=== PATIENT | male | born 1955 | race Caucasian/White ===

== ENCOUNTER → 2017-05-05 | Outpatient (CLI) | payer OTHER ==
[2017-05-05 11:58] LABS: Blood Urea Nitrogen 24 mg/dL (9-20); Non-African American GFR(MDRD) >60 (>60 ml/min/1.73 sqM)
--- NOTE | 2017-05-05 14:01 | CT ---
EXAMINATION TYPE: CT abdomen pelvis w con DATE OF EXAM: 05/05/2017 COMPARISON: NONE HISTORY: Umbilical hernia CT DLP: 4652 mGycm Automated exposure control for dose reduction was used. TECHNIQUE: Helical acquisition of images from the lung bases through the pelvis have been completed. CONTRAST: Performed with Oral Contrast and with IV Contrast, patient injected with 100 ml mL of Visipaque 320. FINDINGS: Umbilical hernia is present which contains fat and extends the skin surface, and measures a pproximately 10 x 12 x 7.5 cm and shows a bilobed configuration. There are coronary calcifications. LUNG BASES: No significant abnormality is appreciated. AORTA: No significant abnormality is appreciated. LIVER/GB: No significant abnormality is appreciated. PANCREAS: No significant abnormality is seen. SPLEEN: No significant abnormality is seen. ADRENALS: No significant abnormality is seen. KIDNEYS: No significant abnormality is seen. REPRODUCTIVE ORGANS: No significant abnormality is seen BOWEL: No significant abnormality is seen. FREE AIR: No Free Air visible. ASCITES: None visible. PELVIC ADENOPATHY: None visualized. RETROPERITONEAL ADENOPATHY: No Retroperitoneal Adenopathy visible. URINARY BLADDER: No significant abnormality is seen. OSSEOUS STRUCTURES: Bilateral spondylolysis present at L5, grade 1 spinal listhesis is present L5 and S1. There is associated loss of disc height, vacuum phenomenon. IMPRESSION: LARGE UMBILICAL HERNIA, THE MOUTH OF THE HERNIA MEASURES 3 CM IN DIAMETER. SPONDYLOLYSIS AND SPONDYLO LISTHESIS.
== END | disposition home or self-care (01) ==
LOC: RADCTMAIN 10:57
PROVIDERS: ATTEND Surgery
DX: K42.9 Umbilical hernia without obstruction or gangrene (principal)
CPT/HCPCS: 82565; 84520; 74177; 36415; Q9967

== ENCOUNTER 2022-12-12 19:00 | Inpatient (IN) | payer OTHER ==
--- NOTE | 2022-12-12 20:03 | ED ---
Weakness HPI - General Chief complaint: Weakness Stated complaint: weakness Time Seen by Provider: 12/12/22 19:10 Source: patient, EMS Mode of arrival: ambulatory Limitations: no limitations - History of Present Illness Initial comments: This patient is 67-year-old man who is here to have evaluation of generalized weakness and fatigue. The patient states over the past few days she notes that he is getting more and more fatigued area reach the point that today when he had to go out he was not able to walk a distance to his car. He had to go back in and sit down. The patient states that it is not focal weakness. He just feels drained. He has not noted chest pain or dyspnea. No noted fever or chills. He does indicate that he has had some swelling of the right leg that has been increasing and there is increasing drainage from leg ulcer that he has. No cough or dyspnea. No change in urination or bowel movements. MD Complaint: generalized weakness, lack of energy, difficulty walking Onset/Timin -: days(s) Location: generalized Consistency: constant Improves with: rest Worsens with: exertion - Related Data Home Medications Medication Instructions Recorded Confirmed Apixaban [Eliquis] 5 mg PO BID 04/11/17 12/12/22 Cholecalciferol [Vitamin D3 (25 25 mcg PO HS 12/12/22 12/12/22 Mcg = 1000 Iu)] Exenatide Microspheres [Bydureon 2 mg SQ NEVAREZ 12/12/22 12/12/22 Bcise Auto-Injector] FLUoxetine HCL [PROzac] 20 mg PO DAILY 12/12/22 12/12/22 Ferrous Sulfate [Iron (65 MG 325 mg PO HS 12/12/22 12/12/22 Elemental)] Insulin Glargine,Hum.rec.anlog 30 units SQ HS 12/12/22 12/12/22 [Lantus Solostar Pen] Insulin Lispro [humaLOG Kwikpen] See Protocol SQ TID-W/MEALS 12/12/22 12/12/22 Nystatin 100,000Unit/gm Cream 1 applic TOPICAL BID 12/12/22 12/12/22 [Mycostatin Cream] Testosterone [Androgel 1.62% Gel 2 packet TOPICAL DAILY 12/12/22 12/12/22 Packet] carvediloL [Coreg] 25 mg PO BID 12/12/22 12/12/22 Previous Rx's Medication Instructions Recorded Acetaminophen Tab [Tylenol] 500 mg PO Q6HR PRN tab 12/17/22 Amoxic-Pot Clav 875-125Mg 1 tab PO BID 10 Days #20 tab 12/17/22 [Augmentin 875-125] Atorvastatin [Lipitor] 10 mg PO DAILY tab 12/17/22 Losartan [Cozaar] 25 mg PO DAILY #0 12/17/22 Tamsulosin [Flomax] 0.4 mg PO PC-SUPPER cap 12/17/22 Allergies Allergy/AdvReac Type Severity Reaction Status Date / Time lisinopril [From Prinivil] AdvReac Cough Verified 12/12/22 20:43 Review of Systems ROS Statement: Those systems with pertinent positive or pertinent negative responses have been documented in the HPI. ROS Other: All systems not noted in ROS Statement are negative. Constitutional: Reports: weakness. Denies: fever, chills Eyes: Denies: vision change Respiratory: Denies: cough, dyspnea Cardiovascular: Denies: chest pain, palpitations, orthopnea, edema, syncope Gastrointestinal: Denies: abdominal pain, vomiting, diarrhea, melena, hematochezia Genitourinary: Denies: dysuria, hematuria Musculoskeletal: Denies: back pain Skin: Denies: rash Neurological: Denies: headache, weakness, numbness Past Medical History Past Medical History: Atrial Fibrillation, Cancer, Diabetes Mellitus, Hyperlipidemia, Hypertension, Sleep Apnea/CPAP/BIPAP Additional Past Medical History / Comment(s): Basal cell carcinoma, Heart murmur History of Any Multi-Drug Resistant Organisms: None Reported Past Surgical History: No Surgical Hx Reported Additional Past Surgical History / Comment(s): Cataract surgery right eye Past Anesthesia/Blood Transfusion Reactions: No Reported Reaction Past Psychological History: Depression Smoking Status: Never smoker Past Alcohol Use History: None Reported Past Drug Use History: None Reported - Past Family History Mother Family Medical History: Diabetes Mellitus General Exam Limitations: no limitations General appearance: alert, in no apparent distress Head exam: Present: atraumatic, normocephalic Eye exam: Present: normal appearance. Absent: scleral icterus, conjunctival injection ENT exam: Present: mucous membranes dry Neck exam: Present: normal inspection Respiratory exam: Present: normal lung sounds bilaterally. Absent: respiratory distress, wheezes, rales, rhonchi, stridor, accessory muscle use Cardiovascular Exam: Present: regular rate, normal rhythm, normal heart sounds. Absent: systolic murmur, diastolic murmur, rubs, gallop GI/Abdominal exam: Present: soft. Absent: distended, tenderness, guarding, rebound, rigid, mass, pulsatile mass Extremities exam: Present: normal inspection, normal capillary refill, pedal edema (There is edema of the right leg. Patient has venous stasis ulcer with drainage. There is erythema and warmth.). Absent: calf tenderness Back exam: Present: normal inspection. Absent: CVA tenderness (R), CVA tenderness (L) Course Vital Signs 12/12/22 12/12/22 12/12/22 19:11 20:49 21:40 Temperature 99.1 F Pulse Rate 60 60 63 Respiratory 16 18 20 Rate Blood Pressure 97/57 93/75 98/53 O2 Sat by Pulse 99 95 93 L Oximetry 12/13/22 12/13/22 12/13/22 01:10 04:45 06:22 Temperature Pulse Rate 86 70 73 Respiratory 17 15 21 Rate Blood Pressure 108/95 108/95 132/61 O2 Sat by Pulse 96 95 94 L Oximetry Medical Decision Making - Medical Decision Making This patient is a 67-year-old man presenting with worsening of generalized weakness and fatigue. The exam does find some lower extremity cellulitis, and the patient started on antibiotics. The workup does reveal the patient has acute kidney injury, is given some mild hydration given the equivocal chest x- ray, will have repeat labs and nephrology consultation. The patient did have a chest x-ray which I interpreted as showing some possible vascular congestion. Was pt. sent in by a medical professional or institution (, PA, [employer], urgent care, hospital, or [facility]...) When possible be specific @ -[No] Did you speak to anyone other than the patient for history (EMS, parent, family, police, friend...)? What history was obtained from this source @ -[No] Did you review nursing and triage notes (agree or disagree)? Why? @ -[I reviewed and agree with nursing and triage notes] Were old charts reviewed (outside hosp., previous admission, EMS record, old EKG, old radiological studies, urgent care reports/EKG's, [facility] records)? Report findings @ -[old charts were reviewed] Differential Diagnosis (chest pain, altered mental status, abdominal pain women, abdominal pain men, vaginal bleeding, weakness, fever, dyspnea, syncope, headache, dizziness, GI bleed, back pain, seizure, CVA, palpatations, mental health, musculoskeletal)? @ -[Differential Weakness: Hypoglycemia, shock, sepsis, hyponatremia, anemia, infection, AR, ETOH, adverse medicine reaction, overdose, stroke, this is not meant to be an all-inclusive list. EKG interpreted by me (3pts min.). @ -[As above] X-rays interpreted by me (1pt min.). @ -[Chest x-ray as above CT interpreted by me (1pt min.). @ -[None done] U/S interpreted by me (1pt. min.). @ -[None done] What testing was considered but not performed or refused? (CT, X-rays, U/S, labs)? Why? @ -[None] What meds were considered but not given or refused? Why? @ -[None] Did you discuss the management of the patient with other professionals (professionals i.e. , PA, [employer]ER, lab, RT, psych nurse, director social welfare, sound person, teacher, operations officer trust department, piano case and bench assembler)? Give summary @ -[Case is discussed with admitting physician Was smoking cessation discussed for >3mins.? @ -[No] Was critical care preformed (if so, how long)? @ -[No] Were there social determinants of health that impacted care today? How? (Homelessness, low income, unemployed, alcoholism, drug addiction, transportation, low edu. Level, literacy, decrease access to med. care, group home, rehab)? @ -[No] Was there de-escalation of care discussed even if they declined (Discuss DNR or withdrawal of care, Hospice)? DNR status @ -[No] What co-morbidities impacted this encounter? (DM, HTN, Smoking, COPD, CAD, Cancer, CVA, ARF, Chemo, Hep., AIDS, mental health diagnosis, sleep apnea, mor bid obesity)? @ -[None] Was patient admitted / discharged? Hospital course, mention meds given and route, prescriptions, significant lab abnormalities, going to OR and other pertinent info. @ -[Patient is admitted for IV antibiotic therapy, nephrology consultation for acute kidney injury Undiagnosed new problem with uncertain prognosis? @ -[No] Drug Therapy requiring intensive monitoring for toxicity (Heparin, Nitro, Insulin, Cardizem)? @ -[No] Were any procedures done? @ -[No] Diagnosis/symptom? @ -[1. Lower extremity cellulitis 2. Acute kidney injury 3. Generalized weakness Acute, or Chronic, or Acute on Chronic? @ -[Acute Uncomplicated (without systemic symptoms) or Complicated (systemic symptoms)? @ -[Complicated Side effects of treatment? @ -[No] Exacerbation, Progression, or Severe Exacerbation? @ -[No] Poses a threat to life or bodily function? How? (Chest pain, USA, AR, pneumonia, PE, COPD, DKA, ARF, appy, cholecystitis, CVA, Diverticulitis, Homicidal, Suicidal, threat to staff... and all critical care pts) @ -[Yes untreated cellulitis may progress to sepsis and . Unaddressed acute kidney injury may progress to chronic renal failure or to . - Lab Data Result diagrams: 12/15/22 06:44 12/17/22 10:14 Lab Results 12/12/22 12/12/22 12/12/22 Range/Units 09:52 19:30 19:30 WBC 9.8 (3.8-10.6) k/uL RBC 4.25 L (4.30-5.90) m/uL Hgb 13.1 (13.0-17.5) gm/dL Hct 39.8 (39.0-53.0) % MCV 93.7 (80.0-100.0) fL MCH 30.8 (25.0-35.0) pg MCHC 32.8 (31.0-37.0) g/dL RDW 13.8 (11.5-15.5) % Plt Count 219 (150-450) k/uL MPV 7.1 Neutrophils % 96 % Lymphocytes % 1 % Monocytes % 2 % Eosinophils % 0 % Basophils % 0 % Neutrophils # 9.4 H (1.3-7.7) k/uL Lymphocytes # 0.1 L (1.0-4.8) k/uL Monocytes # 0.2 (0-1.0) k/uL Eosinophils # 0.0 (0-0.7) k/uL Basophils # 0.0 (0-0.2) k/uL PT 11.2 (9.0-12.0) sec INR 1.1 (<1.2) APTT 25.3 (22.0-30.0) sec Sodium (137-145) mmol/L Potassium (3.5-5.1) mmol/L Chloride (98-107) mmol/L Carbon Dioxide (22-30) mmol/L Anion Gap mmol/L BUN (9-20) mg/dL Creatinine (0.66-1.25) mg/dL Est GFR (CKD-EPI)AfAm (>60 ml/min/1.73 sqM) Est GFR (CKD-EPI)NonAf (>60 ml/min/1.73 sqM) Glucose (74-99) mg/dL Plasma Lactic Acid Tho (0.7-2.0) mmol/L Calcium (8.4-10.2) mg/dL Total Bilirubin (0.2-1.3) mg/dL AST (17-59) U/L ALT (4-49) U/L Alkaline Phosphatase (38-126) U/L Troponin I (0.000-0.034) ng/mL NT-Pro-B Natriuret Pep pg/mL Total Protein (6.3-8.2) g/dL Albumin (3.5-5.0) g/dL Urine Color Yellow Urine Appearance Clear (Clear) Urine pH 5.0 (5.0-8.0) Ur Specific [place] 1.016 (1.001-1.035) Urine Protein Negative (Negative) Urine Glucose (UA) Negative (Negative) Urine Ketones Trace H (Negative) Urine Blood Negative (Negative) Urine Nitrite Negative (Negative) Urine Bilirubin Negative (Negative) Urine Urobilinogen <2.0 (<2.0) mg/dL Ur Leukocyte Esterase Negative (Negative) 12/12/22 12/12/22 12/12/22 Range/Units 19:30 19:30 19:30 WBC (3.8-10.6) k/uL RBC (4.30-5.90) m/uL Hgb (13.0-17.5) gm/dL Hct (39.0-53.0) % MCV (80.0-100.0) fL MCH (25.0-35.0) pg MCHC (31.0-37.0) g/dL RDW (11.5-15.5) % Plt Count (150-450) k/uL MPV Neutrophils % % Lymphocytes % % Monocytes % % Eosinophils % % Basophils % % Neutrophils # (1.3-7.7) k/uL Lymphocytes # (1.0-4.8) k/uL Monocytes # (0-1.0) k/uL Eosinophils # (0-0.7) k/uL Basophils # (0-0.2) k/uL PT (9.0-12.0) sec INR (<1.2) APTT (22.0-30.0) sec Sodium 134 L (137-145) mmol/L Potassium 4.9 (3.5-5.1) mmol/L Chloride 98 (98-107) mmol/L Carbon Dioxide 24 (22-30) mmol/L Anion Gap 12 mmol/L BUN 88 H (9-20) mg/dL Creatinine 3.48 H (0.66-1.25) mg/dL Est GFR (CKD-EPI)AfAm 20 (>60 ml/min/1.73 sqM) Est GFR (CKD-EPI)NonAf 17 (>60 ml/min/1.73 sqM) Glucose 121 H (74-99) mg/dL Plasma Lactic Acid Tho 1.4 (0.7-2.0) mmol/L Calcium 7.8 L (8.4-10.2) mg/dL Total Bilirubin 0.9 (0.2-1.3) mg/dL AST 46 (17-59) U/L ALT 37 (4-49) U/L Alkaline Phosphatase 102 (38-126) U/L Troponin I 0.032 (0.000-0.034) ng/mL NT-Pro-B Natriuret Pep pg/mL Total Protein 6.1 L (6.3-8.2) g/dL Albumin 3.4 L (3.5-5.0) g/dL Urine Color Urine Appearance (Clear) Urine pH (5.0-8.0) Ur Specific [place] (1.001-1.035) Urine Protein (Negative) Urine Glucose (UA) (Negative) Urine Ketones (Negative) Urine Blood (Negative) Urine Nitrite (Negative) Urine Bilirubin (Negative) Urine Urobilinogen (<2.0) mg/dL Ur Leukocyte Esterase (Negative) 12/12/22 12/12/22 Range/Units 19:30 22:58 WBC (3.8-10.6) k/uL RBC (4.30-5.90) m/uL Hgb (13.0-17.5) gm/dL Hct (39.0-53.0) % MCV (80.0-100.0) fL MCH (25.0-35.0) pg MCHC (31.0-37.0) g/dL RDW (11.5-15.5) % Plt Count (150-450) k/uL MPV Neutrophils % % Lymphocytes % % Monocytes % % Eosinophils % % Basophils % % Neutrophils # (1.3-7.7) k/uL Lymphocytes # (1.0-4.8) k/uL Monocytes # (0-1.0) k/uL Eosinophils # (0-0.7) k/uL Basophils # (0-0.2) k/uL PT (9.0-12.0) sec INR (<1.2) APTT (22.0-30.0) sec Sodium (137-145) mmol/L Potassium (3.5-5.1) mmol/L Chloride (98-107) mmol/L Carbon Dioxide (22-30) mmol/L Anion Gap mmol/L BUN (9-20) mg/dL Creatinine (0.66-1.25) mg/dL Est GFR (CKD-EPI)AfAm (>60 ml/min/1.73 sqM) Est GFR (CKD-EPI)NonAf (>60 ml/min/1.73 sqM) Glucose (74-99) mg/dL Plasma Lactic Acid Tho (0.7-2.0) mmol/L Calcium (8.4-10.2) mg/dL Total Bilirubin (0.2-1.3) mg/dL AST (17-59) U/L ALT (4-49) U/L Alkaline Phosphatase (38-126) U/L Troponin I 0.029 (0.000-0.034) ng/mL NT-Pro-B Natriuret Pep 1730 pg/mL Total Protein (6.3-8.2) g/dL Albumin (3.5-5.0) g/dL Urine Color Urine Appearance (Clear) Urine pH (5.0-8.0) Ur Specific [place] (1.001-1.035) Urine Protein (Negative) Urine Glucose (UA) (Negative) Urine Ketones (Negative) Urine Blood (Negative) Urine Nitrite (Negative) Urine Bilirubin (Negative) Urine Urobilinogen (<2.0) mg/dL Ur Leukocyte Esterase (Negative) - EKG Data EKG shows normal: sinus rhythm, axis (normal), intervals (Normal), QRS complexes (Normal), ST-T waves (Normal) Rate: normal (Rate 61 bpm) Disposition Clinical Impression: Acute kidney failure, Cellulitis Disposition: ADMITTED IP TO THIS HOSP Condition: Fair Is patient prescribed a controlled substance at d/c from ED?: No
[2022-12-12 20:11] LABS: INR 1.1 (<1.2); Partial Thromboplastin Time 25.3 sec (22.0-30.0); Prothrombin Time 11.2 sec (9.0-12.0)
[2022-12-12 20:12] LABS: Basophils % (A) 0 %; Eosinophils % (A) 0 %; HCT 39.8 % (39.0-53.0); HGB 13.1 gm/dL (13.0-17.5); Lymphocytes # (A) 0.1 k/uL (1.0-4.8); Lymphocytes % (A) 1 %; MCH 30.8 pg (25.0-35.0); MCHC 32.8 g/dL (31.0-37.0); MCV 93.7 fL (80.0-100.0); Mean Platelet Volume 7.1; Monocytes # (A) 0.2 k/uL (0-1.0); Monocytes % (A) 2 %; Neutrophils # (A) 9.4 k/uL (1.3-7.7); Neutrophils % (A) 96 %; Platelet Count 219 k/uL (150-450); RBC 4.25 m/uL (4.30-5.90); RDW 13.8 % (11.5-15.5); WBC 9.8 k/uL (3.8-10.6)
[2022-12-12 20:23] LABS: Albumin 3.4 g/dL (3.5-5.0); Calcium 7.8 mg/dL (8.4-10.2); Potassium 4.9 mmol/L (3.5-5.1); Total Bilirubin 0.9 mg/dL (0.2-1.3); Total Protein 6.1 g/dL (6.3-8.2)
--- NOTE | 2022-12-12 20:27 | XR ---
EXAMINATION TYPE: XR chest 1V portable DATE OF EXAM: 12/12/2022 8:19 PM COMPARISON: None TECHNIQUE: XR chest 1V portable Frontal view of the chest. CLINICAL INDICATION:Male, 67 years old with history of Fever; FINDINGS: Lungs/Pleura: There is no evidence of pleural effusion, focal consolidation, or pneumothorax. Pulmonary vascularity: Unremarkable. Heart/mediastinum: Cardiomediastinal silhouette is prominent in size. Musculoskeletal: No acute osseous pathology. IMPRESSION: Low lung volumes with a generalized hazy appearance which could represent atelectasis versus pulmonar y edema correlate with serum BNP.
[2022-12-13] MEDS ORDERED: NALOXONE 0.4 MG/ML 1 ML VIAL IV PRN
[2022-12-13] MEDS ORDERED: ONDANSETRON 4 MG/2 ML VIAL IVP PRN (00:11)
[2022-12-13] MEDS: SODIUM CHLORIDE 0.9% 1,000 ML IV SCH ×3 (01:18→21:04)
--- NOTE | 2022-12-13 01:40 | US ---
EXAM: US Duplex Right Lower Extremity Veins CLINICAL HISTORY: Its. reason US Reason: edema, possible DVT TECHNIQUE: Real-time duplex ultrasound scan of the right lower extremity veins integrating B-mode two-dimensional vascular structure, Doppler spectral analysis, color flow Doppler imaging and compression. COMPARISON: No relevant prior studies available. FINDINGS: Deep veins: Unremarkable. No DVT in the visualized common femoral, femoral, proximal deep femoral or popliteal veins. The veins demonstrate normal color flow, are normally compressible, with normal phasic flow and/or augmentation response. Superficial veins: Unremarkable. No thrombus in the visualized great saphenous vein. Soft tissues: No acute findings. No popliteal cyst. IMPRESSION: Normal right lower extremity duplex venous ultrasound.
[2022-12-13 08:13] LABS: Glucose,Whole Blood 142 mg/dL (70-110)
[2022-12-13] MEDS ORDERED: SULFAMETHOX-TMP 800-160MG 1 EACH TAB PO SCH (09:00)
[2022-12-13] MEDS ORDERED: FAMOTIDINE 20 MG TAB PO SCH (09:00)
--- NOTE | 2022-12-13 09:31 | P.HPIM ---
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 Past Anesthesia/Blood Transfusion Reactions: No Reported Reaction Past Psychological History: Depression Smoking Status: Never smoker Past Alcohol Use History: None Reported Past Drug Use History: None Reported - Past Family History Mother Family Medical History: Diabetes Mellitus Medications and Allergies Home Medications Medication Instructions Recorded Confirmed Type Losartan [Cozaar] 50 mg PO DAILY 11/14/14 12/12/22 History Apixaban [Eliquis] 5 mg PO BID 04/11/17 12/12/22 History Simvastatin [Zocor] 10 mg PO DAILY 04/11/17 12/12/22 History Cholecalciferol [Vitamin D3 (25 25 mcg PO HS 12/12/22 12/12/22 History Mcg = 1000 Iu)] Exenatide Microspheres [Bydureon 2 mg SQ NEVAREZ 12/12/22 12/12/22 History Bcise Auto-Injector] FLUoxetine HCL [PROzac] 20 mg PO DAILY 12/12/22 12/12/22 History Ferrous Sulfate [Feosol] 325 mg PO HS 12/12/22 12/12/22 History Furosemide [Lasix] 20 mg PO HS 12/12/22 12/12/22 History Insulin Glargine,Hum.rec.anlog 30 units SQ HS 12/12/22 12/12/22 History [Lantus Solostar Pen] Insulin Lispro [humaLOG Kwikpen] See Protocol SQ TID-W/MEALS 12/12/22 12/12/22 History Nystatin 100,000Unit/gm Cream 1 applic TOPICAL BID 12/12/22 12/12/22 History [Mycostatin Cream] Sulfamethox-Tmp 800-160Mg [Bactrim 1 tab PO Q12HR 12/12/22 12/12/22 History DS 800-160 mg] Testosterone [Androgel 1.62% Gel 2 packet TOPICAL DAILY 12/12/22 12/12/22 History Packet] carvediloL [Coreg] 25 mg PO BID 12/12/22 12/12/22 History Allergies Allergy/AdvReac Type Severity Reaction Status Date / Time lisinopril [From Prinivil] AdvReac Cough Verified 12/12/22 20:43 Physical Exam Vitals: Vital Signs Temp Pulse Pulse Resp BP BP Pulse Ox 12/13/22 07:52 97.9 F 74 19 104/61 100 12/13/22 06:22 73 21 132/61 94 L 12/13/22 04:45 70 15 108/95 95 12/13/22 01:10 86 17 108/95 96 12/12/22 21:40 63 20 98/53 93 L 12/12/22 20:49 60 18 93/75 95 12/12/22 19:11 99.1 F 60 16 97/57 99 Intake and Output 12/12/22 12/13/22 12/13/22 22:59 06:59 14:59 Other: Weight 154.675 kg 154.675 kg Results CBC & Chem 7: 12/12/22 19:30 12/12/22 19:30 Labs: Abnormal Lab Results - Last 24 Hours (Table) 12/12/22 12/12/22 12/13/22 Range/Units 19:30 19:30 08:12 RBC 4.25 L (4.30-5.90) m/uL Neutrophils # 9.4 H (1.3-7.7) k/uL Lymphocytes # 0.1 L (1.0-4.8) k/uL Sodium 134 L (137-145) mmol/L BUN 88 H (9-20) mg/dL Creatinine 3.48 H (0.66-1.25) mg/dL Glucose 121 H (74-99) mg/dL POC Glucose (mg/dL) 142 H (70-110) mg/dL Calcium 7.8 L (8.4-10.2) mg/dL Total Protein 6.1 L (6.3-8.2) g/dL Albumin 3.4 L (3.5-5.0) g/dL Thrombosis Risk Factor Assmnt - Choose All That Apply Any of the Below Risk Factors Present?: Yes Each Factor Represents 1 point: Heart failure (<1month), Medical pt on bed rest, Obesity (BMI >25), Swollen legs (current) Other Risk Factors: Yes Each Risk Factor Represents 2 Points: Age 61-74 years Other congenital or acquired thrombophilia - If yes, enter type in comment: Yes Thrombosis Risk Factor Assessment Total Risk Factor Score: 6 Thrombosis Risk Factor Assessment Level: High Risk
[2022-12-13] MEDS: carvediloL 12.5 MG TAB PO SCH ×2 (10:07→21:48)
[2022-12-13] MEDS: APIXABAN 5 MG TAB PO SCH ×2 (10:07→21:48)
[2022-12-13 10:08] LABS: Appearance,Urine Clear (Clear); Bilirubin,Urine Negative (Negative); Blood,Urine Negative (Negative); Color,Urine Yellow; Glucose,Urine (UA) Negative (Negative); Ketones,Urine Trace (Negative); Leukocyte Esterase,Urine Negative (Negative); Nitrite,Urine Negative (Negative); Protein,Urine Negative (Negative); Specific Gravity,Urine 1.016 (1.001-1.035); Urobilinogen,Urine <2.0 mg/dL (<2.0)
[2022-12-13] MEDS: ATORVASTATIN 10 MG TAB PO SCH (10:08)
[2022-12-13] MEDS: FLUoxetine HCL 20 MG CAP PO SCH (10:08)
--- NOTE | 2022-12-13 10:51 | P.CONS ---
History of Present Illness - Reason for Consult Consult date: 12/13/22 wound care - History of Present Illness This is a 67-year-old patient being seen by the wound care center on [address] for nonhealing ulceration to the right medial posterior lower extremity. Patient stated that he had swelling to the right lower extremity with the blistering started a few days ago. The medial and posterior aspect of the right lower extremity has an open ulceration with fatty layer exposure with granulation seen within the wound bed with minimal slough noted. Patient also has blistering and erythema noted to the right lower extremity with 2+ edema present. Patient was seen by his primary care physician who instructed him to come to the hospital for care. Patient has not been utilizing any dressings to the site. Review Of Systems: Constitutional: No fever, no chills, no night sweats. No weight change. No weakness, fatigue or lethargy. No daytime sleepiness. Integumentary:reports wounds, no lesions. No rash or pruritus. No unusual bruising. No change in hair or nails. Physical exam: General Appearance: Alert, cooperative, no distress, appears stated age. Skin: See HPI all other Skin color, texture, tugor normal, no rashes or lesions. Neurologic: Alert oriented x3 Assessment: 1. Nonhealing ulceration of right lower extremity with fat layer exposure 2. Diabetes with skin ulceration 3. Cellulitis Plan: 1. Right lower extremity: Apply absorptive silver, saline moistened gauze, dry gauze to the open ulcerated areas. Apply triad to the reddened and blistered area. Wrap with rolled gauze and a Andrea wrap. Continue to elevate legs 30 minutes a day 3 times a day. Thank you for the consultation any questions was contact the wound care center DNP note has been reviewed and discussed with Dr. Fernandez and the impression and plan of care has been directed as dictated. 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 Past Anesthesia/Blood Transfusion Reactions: No Reported Reaction Past Psychological History: Depression Smoking Status: Never smoker Past Alcohol Use History: None Reported Past Drug Use History: None Reported - Past Family History Mother Family Medical History: Diabetes Mellitus Medications and Allergies Home Medications Medication Instructions Recorded Confirmed Type Losartan [Cozaar] 50 mg PO DAILY 11/14/14 12/12/22 History Apixaban [Eliquis] 5 mg PO BID 04/11/17 12/12/22 History Simvastatin [Zocor] 10 mg PO DAILY 04/11/17 12/12/22 History Cholecalciferol [Vitamin D3 (25 25 mcg PO HS 12/12/22 12/12/22 History Mcg = 1000 Iu)] Exenatide Microspheres [Bydureon 2 mg SQ NEVAREZ 12/12/22 12/12/22 History Bcise Auto-Injector] FLUoxetine HCL [PROzac] 20 mg PO DAILY 12/12/22 12/12/22 History Ferrous Sulfate [Feosol] 325 mg PO HS 12/12/22 12/12/22 History Furosemide [Lasix] 20 mg PO HS 12/12/22 12/12/22 History Insulin Glargine,Hum.rec.anlog 30 units SQ HS 12/12/22 12/12/22 History [Lantus Solostar Pen] Insulin Lispro [humaLOG Kwikpen] See Protocol SQ TID-W/MEALS 12/12/22 12/12/22 History Nystatin 100,000Unit/gm Cream 1 applic TOPICAL BID 12/12/22 12/12/22 History [Mycostatin Cream] Sulfamethox-Tmp 800-160Mg [Bactrim 1 tab PO Q12HR 12/12/22 12/12/22 History DS 800-160 mg] Testosterone [Androgel 1.62% Gel 2 packet TOPICAL DAILY 12/12/22 12/12/22 History Packet] carvediloL [Coreg] 25 mg PO BID 12/12/22 12/12/22 History Allergies Allergy/AdvReac Type Severity Reaction Status Date / Time lisinopril [From Prinivil] AdvReac Cough Verified 12/12/22 20:43 Physical Exam Vitals: Vital Signs Temp Pulse Pulse Resp BP BP Pulse Ox 12/13/22 07:52 97.9 F 74 19 104/61 100 12/13/22 06:22 73 21 132/61 94 L 12/13/22 04:45 70 15 108/95 95 12/13/22 01:10 86 17 108/95 96 12/12/22 21:40 63 20 98/53 93 L 12/12/22 20:49 60 18 93/75 95 12/12/22 19:11 99.1 F 60 16 97/57 99 Intake and Output 12/12/22 12/13/22 12/13/22 22:59 06:59 14:59 Other: Weight 154.675 kg 154.675 kg Results CBC & Chem 7: 12/12/22 19:30 12/12/22 19:30 Labs: Abnormal Lab Results - Last 24 Hours (Table) 12/12/22 12/12/22 12/12/22 Range/Units 09:52 19:30 19:30 RBC 4.25 L (4.30-5.90) m/uL Neutrophils # 9.4 H (1.3-7.7) k/uL Lymphocytes # 0.1 L (1.0-4.8) k/uL Sodium 134 L (137-145) mmol/L BUN 88 H (9-20) mg/dL Creatinine 3.48 H (0.66-1.25) mg/dL Glucose 121 H (74-99) mg/dL POC Glucose (mg/dL) (70-110) mg/dL Calcium 7.8 L (8.4-10.2) mg/dL Total Protein 6.1 L (6.3-8.2) g/dL Albumin 3.4 L (3.5-5.0) g/dL Urine Ketones Trace H (Negative) 12/13/22 Range/Units 08:12 RBC (4.30-5.90) m/uL Neutrophils # (1.3-7.7) k/uL Lymphocytes # (1.0-4.8) k/uL Sodium (137-145) mmol/L BUN (9-20) mg/dL Creatinine (0.66-1.25) mg/dL Glucose (74-99) mg/dL POC Glucose (mg/dL) 142 H (70-110) mg/dL Calcium (8.4-10.2) mg/dL Total Protein (6.3-8.2) g/dL Albumin (3.5-5.0) g/dL Urine Ketones (Negative) Assessment and Plan (1) Type 2 diabetes mellitus with other skin ulcer Current Visit: Yes Status: Acute Code(s): E11.622 - TYPE 2 DIABETES MELLITUS WITH OTHER SKIN ULCER; L98.499 - NON-PRESSURE CHRONIC ULCER OF SKIN OF SITES W UNSP SEVERITY SNOMED Code(s): 054187783 (2) 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 exposed Current Visit: Yes Status: Acute Code(s): L97.212 - NON-PRESSURE CHRONIC ULCER OF RIGHT CALF W FAT LAYER EXPOSED SNOMED Code(s): 81204201652638508 (3) Cellulitis Current Visit: Yes Status: Acute Code(s): L03.90 - CELLULITIS, UNSPECIFIED SNOMED Code(s): 001764103
[2022-12-13 11:23] LABS: Glucose,Whole Blood 279 mg/dL (70-110)
[2022-12-13 11:46] LABS: African American GFR (CKD) 21 (>60 ml/min/1.73 sqM); Anion Gap 15 mmol/L; Blood Urea Nitrogen 97 mg/dL (9-20); Calcium 7.5 mg/dL (8.4-10.2); Carbon Dioxide 20 mmol/L (22-30); Chloride 97 mmol/L (98-107); Glucose 290 mg/dL (74-99); Magnesium 2.3 mg/dL (1.6-2.3); Non-African American GFR(CKD) 18 (>60 ml/min/1.73 sqM); Potassium 5.6 mmol/L (3.5-5.1); Sodium 132 mmol/L (137-145)
[2022-12-13] MEDS ORDERED: AMPICILLIN-SULBACTAM 1.5 GM in SODIUM CHLORIDE 0.9% 50 ML IVPB SCH (12:00)
[2022-12-13] MEDS ORDERED: SODIUM BICARB 8.4% 50 ML SYR (1 MEQ/ML) IV STA (12:15)
[2022-12-13] MEDS: ACETAMINOPHEN TAB 500 MG TAB PO PRN (12:15)
[2022-12-13] MEDS ORDERED: INSULIN REGULAR 100 UNIT/ML VIAL (IV) IV ONE ×2 (12:16→16:21)
[2022-12-13] MEDS ORDERED: DEXTROSE 50% SYRINGE 50 ML IVP STA (12:16)
--- NOTE | 2022-12-13 12:20 | P.NPCON ---
History of Present Illness - Reason for Consult acute renal failure - History of Present Illness Reason for consultation: Acute kidney injury History of present illness: Patient is a 67-year-old male seen in consultation for acute kidney injury. Patient's creatinine in April 2017 was 0.86. No other records available. Creatinine this admission was 3.48 and is 3.25 today. Patient does not follow with a anesthesia attending outpatient. He states that he follows with urology. Potassium today is 5.6. Blood glucose was 290. Patient came to the hospital due to generalized weakness. He also is complaining of her right lower extremity ulcer. Patient stated he was taking Bactrim and he took it for over 2 days prior to admission. He was also on losartan. He also admits to taking Motrin as needed and last took it about 3-4 days ago. He is currently receiving IV fluids. Patient has long-standing history of diabetes. He denies chest pain or shortness of breath. Denies history of coronary artery disease. Oral intake is fair. He is currently on 4 L nasal cannula. Blood pressure stable. Vital signs are stable. General: No acute distress. HEENT: Head exam is unremarkable. On nasal cannula. LUNGS: No audible rhonchi or wheezes. HEART: Rate and Rhythm are regular. ABDOMEN: Obese, nontender. EXTREMITITES: 1+ edema. Right lower extremity ulceration noted. 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 Past Anesthesia/Blood Transfusion Reactions: No Reported Reaction Past Psychological History: Depression Smoking Status: Never smoker Past Alcohol Use History: None Reported Past Drug Use History: None Reported - Past Family History Mother Family Medical History: Diabetes Mellitus Medications and Allergies Home Medications Medication Instructions Recorded Confirmed Type Losartan [Cozaar] 50 mg PO DAILY 11/14/14 12/12/22 History Apixaban [Eliquis] 5 mg PO BID 04/11/17 12/12/22 History Simvastatin [Zocor] 10 mg PO DAILY 04/11/17 12/12/22 History Cholecalciferol [Vitamin D3 (25 25 mcg PO HS 12/12/22 12/12/22 History Mcg = 1000 Iu)] Exenatide Microspheres [Bydureon 2 mg SQ NEVAREZ 12/12/22 12/12/22 History Bcise Auto-Injector] FLUoxetine HCL [PROzac] 20 mg PO DAILY 12/12/22 12/12/22 History Ferrous Sulfate [Feosol] 325 mg PO HS 12/12/22 12/12/22 History Furosemide [Lasix] 20 mg PO HS 12/12/22 12/12/22 History Insulin Glargine,Hum.rec.anlog 30 units SQ HS 12/12/22 12/12/22 History [Lantus Solostar Pen] Insulin Lispro [humaLOG Kwikpen] See Protocol SQ TID-W/MEALS 12/12/22 12/12/22 History Nystatin 100,000Unit/gm Cream 1 applic TOPICAL BID 12/12/22 12/12/22 History [Mycostatin Cream] Sulfamethox-Tmp 800-160Mg [Bactrim 1 tab PO Q12HR 12/12/22 12/12/22 History DS 800-160 mg] Testosterone [Androgel 1.62% Gel 2 packet TOPICAL DAILY 12/12/22 12/12/22 History Packet] carvediloL [Coreg] 25 mg PO BID 12/12/22 12/12/22 History Allergies Allergy/AdvReac Type Severity Reaction Status Date / Time lisinopril [From Prinivil] AdvReac Cough Verified 12/12/22 20:43 Physical Exam Vitals: Vital Signs Temp Pulse Pulse Resp BP BP Pulse Ox 12/13/22 07:52 97.9 F 74 19 104/61 100 12/13/22 06:22 73 21 132/61 94 L 12/13/22 04:45 70 15 108/95 95 12/13/22 01:10 86 17 108/95 96 12/12/22 21:40 63 20 98/53 93 L 12/12/22 20:49 60 18 93/75 95 12/12/22 19:11 99.1 F 60 16 97/57 99 Intake and Output 12/12/22 12/13/22 12/13/22 22:59 06:59 14:59 Other: # Voids 1 Weight 154.675 kg 154.675 kg Results - Lab Results Most recent lab results Calcium 7.5 mg/dL (8.4-10.2) L 12/13/22 10:25 Magnesium 2.3 mg/dL (1.6-2.3) 12/13/22 10:25 12/12/22 19:30 12/13/22 10:25 Assessment and Plan Plan: Assessment: 1. Acute kidney injury secondary to ATN secondary to hypotension, nonsteroidals, Bactrim and infection. Creatinine 3.48 on admission and is 3.25 today. Rule out urinary retention and obstructive uropathy. UA benign. 2. Right lower extremity ulceration on antibiotics. 3. Hyperkalemia secondary to acute kidney injury, acidosis, hyperglycemia. Was also on Bactrim and losartan which are currently held. 4. Metabolic acidosis secondary to acute kidney injury. 5. Diabetes mellitus. Plan: Decrease rate of normal saline to 75 mL an hour. Check bladder scan to rule out urinary retention. Check renal ultrasound. Bactrim discontinued. Continue to hold losartan. Avoid nephrotoxins. Continue to monitor renal function and urine output. Tight blood sugar control. Add oral bicarb. Lokelma 10 g once now. Repeat potassium level this evening. Thank you for the consultation. I will continue to follow the patient with you during his hospital stay.
[2022-12-13] MEDS ORDERED: SODIUM BICARB 8.4% 50 ML SYR (1 MEQ/ML) ONE (12:48)
[2022-12-13] MEDS: SODIUM ZIRCONIUM CYCLOSILICATE 10 GM PACKET PO ONE ×2 (13:12→13:38)
--- NOTE | 2022-12-13 13:13 | US ---
EXAMINATION TYPE: US kidneys/renal and bladder DATE OF EXAM: 12/13/2022 COMPARISON: CT 2017. CLINICAL INDICATION: Male, 67 years old with history of glenroy; GLENROY EXAM MEASUREMENTS: Right Kidney: 11.7 x 5.2 x 5.3 cm Left Kidney: 10.5 x 5.8 x 5.1 cm Large pt body habitus, difficult visualization Right Kidney: No evidence of hydro, lower pole gassed out Left Kidney: No evidence of hydro Bladder: Unable to visualize Suboptimal study due to patient's large body habitus. Renal size is symmetric and within normal limit s. Cortical medullary differentiation maintained. No concerning mass identified. No hydronephrosis se en. Bladder not distinctly seen. IMPRESSION: Suboptimal study without hydronephrosis seen bilaterally.
[2022-12-13] MEDS: SODIUM BICARBONATE TAB 650 MG TAB PO SCH ×3 (13:17→21:49)
[2022-12-13 13:35] LABS: ABG Base Excess -1.5 mmol/L; ABG HCO3 25 mmol/L (21-25); ABG Oxygen Saturation 95.6 % (94-97); ABG PCO2 52 mmHg (35-45); ABG PO2 81 mmHg (83-108); ABG TCO2 27 mmol/L (19-24); Allen Test Performed? Yes
--- NOTE | 2022-12-13 13:52 | XR ---
EXAMINATION TYPE: XR chest 1V portable DATE OF EXAM: 12/13/2022 CLINICAL HISTORY: Dyspnea. TECHNIQUE: Single AP portable frontal semiupright view of the chest is obtained. COMPARISON: Chest x-ray October 12, 2022 FINDINGS: Cardiomegaly is redemonstrated. Patchy left basilar opacity favors atelectasis. Right lung is clear. The osseous structures are intact. IMPRESSION: Cardiomegaly with patchy left basilar atelectasis.
[2022-12-13] MEDS ORDERED: AMPICILLIN-SULBACTAM 1.5 GM in SODIUM CHLORIDE 0.9% 50 ML IVPB ONE (14:00)
[2022-12-13] MEDS: HYDROPHILIC CREAM 180 GM TUBE TOPICAL SCH (14:51)
[2022-12-13] MEDS ORDERED: DEXTROSE 50% SYRINGE 50 ML IVP PRN ×2 (15:11)
[2022-12-13 15:38] LABS: ABG HCO3 24 mmol/L (21-25); ABG Oxygen Saturation 97.7 % (94-97); ABG PCO2 48 mmHg (35-45); ABG PH 7.31 (7.35-7.45); ABG PO2 99 mmHg (83-108); ABG TCO2 26 mmol/L (19-24); Allen Test Performed? Yes
--- NOTE | 2022-12-13 15:39 | P.CNPUL ---
History of Present Illness Consult date: 12/13/22 Requesting physician: Catalino Banks Reason for consult: dyspnea Chief complaint: Generalized weakness, fatigue History of present illness: This is a 67-year-old male patient with a known history of atrial fibrillation anticoagulated with Eliquis, diabetes mellitus, chronic lower extremity edema, hyperlipidemia, hypertension, morbid obesity, obstructive sleep apnea maintained on CPAP in the outpatient setting, nonsmoker. He also has chronic lower extremity edema right greater than left with redness and drainage. He presented here to the emergency room last evening with complaints of generalized weakness and fatigue. Unable to walk with distance to his car without having to sit down. EKG revealed sinus rhythm without any significant ST or T wave abnormalities. Doppler of the right lower extremity revealed no evidence of DVT. White count 9.8. Hemoglobin 13.1. Platelets 219. Sodium 132. Potassium 5.6. Bicarb 20. BUN 97. Creatinine 3.25. Blood sugar 290. ProBNP 1730. He was admitted to the regular medical floor. He's been seen by nephrology and infectious disease. He is currently on Unasyn. Today after approximately 1:15 a rapid response team was called as the patient was hypotensive, tachypneic and experiencing labored breathing. Chest x-ray revealed cardiomegaly with some patchy left basilar atelectasis. Arterial blood gases on 36% FiO2 revealed a PaO2 of 81, pCO2 of 52 and a pH of 7.30. He was placed on BiPAP 10/5 on 40% FiO2 and this consult was placed. He is currently resting in bed. He is arousable but still somewhat obtunded. His FiO2 was decreased to 30% and his BiPAP settings were increased to 12/6. Review of Systems REVIEW OF SYSTEMS: CONSTITUTIONAL: Positive for generalized weakness and fatigue. Denies any recent significant weight loss or weight gain. EYES: Denies change in vision. EARS, NOSE, MOUTH, THROAT: Denies headaches, denies sore throat. CARDIOVASCULAR: Denies chest pain, palpitations or syncopal episodes. RESPIRATORY: Positive for shortness of breath, no cough, congestion or hemoptysis. GASTROINTESTINAL: Denies change in appetite, denies abdominal pain GENITOURINARY: Denies hematuria, denies infections. MUSKULOSKELETAL: Positive for edema of the lower extremities. INTEGUMENTARY: Positive for chronic wound to the lower extremities right greater than left. NEUROLOGICAL: Denies recent memory loss, no recent seizure activity. PSYCHIATRIC: Denies anxiety, denies depression. HEMATOLOGIC/LYMPHATIC: Denies anemia, denies enlarged lymph nodes. 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 Past Anesthesia/Blood Transfusion Reactions: No Reported Reaction Past Psychological History: Depression Smoking Status: Never smoker Past Alcohol Use History: None Reported Past Drug Use History: None Reported - Past Family History Mother Family Medical History: Diabetes Mellitus Medications and Allergies Home Medications Medication Instructions Recorded Confirmed Type Losartan [Cozaar] 50 mg PO DAILY 11/14/14 12/12/22 History Apixaban [Eliquis] 5 mg PO BID 04/11/17 12/12/22 History Simvastatin [Zocor] 10 mg PO DAILY 04/11/17 12/12/22 History Cholecalciferol [Vitamin D3 (25 25 mcg PO HS 12/12/22 12/12/22 History Mcg = 1000 Iu)] Exenatide Microspheres [Bydureon 2 mg SQ NEVAREZ 12/12/22 12/12/22 History Bcise Auto-Injector] FLUoxetine HCL [PROzac] 20 mg PO DAILY 12/12/22 12/12/22 History Ferrous Sulfate [Feosol] 325 mg PO HS 12/12/22 12/12/22 History Furosemide [Lasix] 20 mg PO HS 12/12/22 12/12/22 History Insulin Glargine,Hum.rec.anlog 30 units SQ HS 12/12/22 12/12/22 History [Lantus Solostar Pen] Insulin Lispro [humaLOG Kwikpen] See Protocol SQ TID-W/MEALS 12/12/22 12/12/22 History Nystatin 100,000Unit/gm Cream 1 applic TOPICAL BID 12/12/22 12/12/22 History [Mycostatin Cream] Sulfamethox-Tmp 800-160Mg [Bactrim 1 tab PO Q12HR 12/12/22 12/12/22 History DS 800-160 mg] Testosterone [Androgel 1.62% Gel 2 packet TOPICAL DAILY 12/12/22 12/12/22 History Packet] carvediloL [Coreg] 25 mg PO BID 12/12/22 12/12/22 History Allergies Allergy/AdvReac Type Severity Reaction Status Date / Time lisinopril [From Prinivil] AdvReac Cough Verified 12/12/22 20:43 Physical Exam Vitals: Vital Signs Temp Pulse Pulse Resp BP BP Pulse Ox 12/13/22 15:06 100/57 12/13/22 13:51 94/58 12/13/22 13:50 12/13/22 13:48 12/13/22 13:45 90/40 12/13/22 13:36 77/44 12/13/22 13:20 80/43 12/13/22 13:13 98.7 F 66 18 82/54 95 12/13/22 07:52 97.9 F 74 19 104/61 100 12/13/22 06:22 73 21 132/61 94 L 12/13/22 04:45 70 15 108/95 95 12/13/22 01:10 86 17 108/95 96 12/12/22 21:40 63 20 98/53 93 L 12/12/22 20:49 60 18 93/75 95 12/12/22 19:11 99.1 F 60 16 97/57 99 FiO2 12/13/22 15:06 12/13/22 13:51 12/13/22 13:50 40 12/13/22 13:48 40 12/13/22 13:45 12/13/22 13:36 12/13/22 13:20 12/13/22 13:13 12/13/22 07:52 12/13/22 06:22 12/13/22 04:45 12/13/22 01:10 12/12/22 21:40 12/12/22 20:49 12/12/22 19:11 Intake and Output 12/13/22 12/13/22 12/13/22 06:59 14:59 22:59 Output Total 600 Balance -600 Output: Urine 600 Other: # Voids 1 Weight 154.675 kg GENERAL EXAM: Obtunded yet arousable morbidly obese 67-year-old male, on BiPAP, comfortable in no apparent distress. HEAD: Normocephalic. EYES: Normal reaction of pupils, equal size. NOSE: Clear with pink turbinates. THROAT: No erythema or exudates. NECK: No masses, no JVD. CHEST: No chest wall deformity. LUNGS: Equal air entry with no crackles, wheeze, rhonchi or dullness. CVS: S1 and S2 normal with no audible murmur, regular rhythm. ABDOMEN: No hepatosplenomegaly, normal bowel sounds, no guarding or rigidity. SPINE: No scoliosis or deformity SKIN: No rashes CENTRAL NERVOUS SYSTEM: No focal deficits, tone is normal in all 4 extremities. EXTREMITIES: Andrea wraps to the bilateral lower extremities No clubbing, no cyanosis. Peripheral pulses are intact. Results - Laboratory Findings CBC and BMP: 12/12/22 19:30 12/13/22 10:25 ABG ABG pH 7.30 (7.35-7.45) L 12/13/22 13:30 ABG pCO2 52 mmHg (35-45) H 12/13/22 13:30 ABG pO2 81 mmHg (83-108) L 12/13/22 13:30 ABG O2 Saturation 95.6 % (94-97) 12/13/22 13:30 PT/INR, D-dimer PT 11.2 sec (9.0-12.0) 12/12/22 19:30 INR 1.1 (<1.2) 12/12/22 19:30 Abnormal lab findings: Abnormal Labs 12/12/22 12/12/22 12/12/22 09:52 19:30 19:30 RBC 4.25 L Neutrophils # 9.4 H Lymphocytes # 0.1 L ABG pH ABG pCO2 ABG pO2 ABG Total CO2 Sodium 134 L Potassium Chloride Carbon Dioxide BUN 88 H Creatinine 3.48 H Glucose 121 H POC Glucose (mg/dL) Osmolality Calcium 7.8 L Total Protein 6.1 L Albumin 3.4 L Urine Ketones Trace H 12/13/22 12/13/22 12/13/22 08:12 10:25 11:22 RBC Neutrophils # Lymphocytes # ABG pH ABG pCO2 ABG pO2 ABG Total CO2 Sodium 132 L Potassium 5.6 H Chloride 97 L Carbon Dioxide 20 L BUN 97 H Creatinine 3.25 H Glucose 290 H POC Glucose (mg/dL) 142 H 279 H Osmolality 320 H Calcium 7.5 L Total Protein Albumin Urine Ketones 12/13/22 13:30 RBC Neutrophils # Lymphocytes # ABG pH 7.30 L ABG pCO2 52 H ABG pO2 81 L ABG Total CO2 27 H Sodium Potassium Chloride Carbon Dioxide BUN Creatinine Glucose POC Glucose (mg/dL) Osmolality Calcium Total Protein Albumin Urine Ketones - Diagnostic Findings Chest x-ray: image reviewed Assessment and Plan Assessment: Generalized weakness and fatigue secondary to acute kidney injury, suspected underlying infection and cellulitis of the lower extremities Acute hypercapnic respiratory failure secondary to morbid obesity History of obstructive sleep apnea utilizing CPAP in the outpatient setting Acute kidney injury possibly related to hypotension Hypotension possibly related to underlying infection Acute on chronic lower extremity edema and possible cellulitis, currently on Unasyn Chronic venous stasis of the lower extremities Morbid obesity with a BMI of 45 kg per metered squared History of atrial fibrillation anticoagulated with [place] Hyperlipidemia History of hypertension Diabetes mellitus Plan: The patient was seen and evaluated Chest x-ray, ABGs, labs and medications reviewed Increased BiPAP settings of 12/6 and decrease the FiO2 to 30% Obtain another arterial blood gas Continue antibiotics Anticoagulated with Eliquis Nephrology, ID service is on the case We will continue to follow and make further recommendations based on his clinical status I have personally seen and examined the patient, performed the documentation and the assessment and plan as written. Number of minutes spent on the visit: 20.
[2022-12-13] MEDS ORDERED: INSULIN ASPART (NovoLOG) 100 UNIT/ML VIAL SQ SCH (16:00)
--- NOTE | 2022-12-13 16:03 | P.HPIM ---
History of Present Illness H&P Date: 12/13/22 Chief Complaint: Right leg wound This is a pleasant 67-year-old patient, was chronic stable medical conditions include atrial fibrillation, diabetes mellitus type 2, hyperlipidemia, hypertension, obstructive sleep apnea, basal cell carcinoma, depression. Patient lives alone. Patient had a blister in the right leg for about a week. Blister broke down. Swelling in the right lower extremity chronically more edema in the right leg compared to left. Had some Fever and chills. Appetite is fair. No change in bowel pattern. Does use a CPAP at night. Review of systems: GEN.: Tired, fever or chills EYES: None HEENT: None NECK: None RESPIRATORY: Some shortness of breath] CARDIOVASCULAR: None GASTROINTESTINAL: None GENITOURINARY: None MUSCULOSKELETAL: As above LYMPHATICS: None HEMATOLOGICAL: None PSYCHIATRY: None NEUROLOGICAL: None Past medical history to include: Atrial fibrillation, diabetes mellitus, hyperlipidemia, hypertension, obstructive sleep apnea, heart murmur depression Social history: No smoking or alcohol. Lives alone Physical examination: VITAL SIGNS: 99.1, 60, 16, 97/57, 99% room air GENERAL: BMI 45, declining but awake tired. EYES: Pupils equal. Conjunctiva normal. HEENT: External appearance of nose and ears normal, oral cavity grossly normal. NECK: JVD not raised; masses not palpable. HEART: First and second heart sounds are normal; no edema. LUNGS: Respiratory rate increased; clear to auscultation. ABDOMEN: Soft, nontender, liver spleen not palpable, no masses palpable. PSYCH: Alert and oriented x3; mood and affect a bit anxiousl. MUSCULOSKELETAL:No Clubbing/cyanosis;muscles-grossly intact EXTREMITY: Swelling of the right lower extremity greater than compared to left. Large raw area of skin breakdown on the medial aspect of the right lower leg. Some symptoms with surrounding cellulitis. Small areas of superficial wound on the right lower extremity. NEUROLOGICAL: Cranial nerves grossly intact; no facial asymmetry, power and sensation grossly intact. LYMPHATICS: No lymph nodes palpable in the axilla and neck INVESTIGATIONS, reviewed in the clinical context: White count 9.18 globin 13.1 platelets 219 sodium 134 potassium 4.9 BUN 88 creatinine 3.48 EKG tracing personally reviewed by me-normal sinus rhythm. Rate 61 Doppler ultrasound right lower extremity: Negative for DVT Chest x-ray film personally reviewed by me-a bit underpenetrated Assessment and plan: -Acute cellulitis right lower extremity, associated large blister that broke down. Other small areas 2. Patient has chronic edema of the right lower extremity, right greater than left. IV Unasyn. Consultation to ID. -Chronic kidney disease. Rule out acute component. Renal ultrasound. No baseline blood work available. Consult nephrology. -Morbid obesity BMI 45 Weight loss measures -Diabetes mellitus type 2, chronically on insulin Follow Accu-Cheks and sliding scale -Depression Prozac 20 mg -Hyperlipidemia Zocor 10 mg a day -Obstructive sleep apnea, wears CPAP at home Continue home CPAP -Essential hypertension Coreg 25 mg twice a day, Cozaar 50 mg a day -Paroxysmal atrial fibrillation, currently in sinus rhythm Coreg. Eliquis IV Unasyn. Resume home medications. Consultation to nephrology 90. Care was discussed with the patient. Questions answered. 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 Past Anesthesia/Blood Transfusion Reactions: No Reported Reaction Past Psychological History: Depression Smoking Status: Never smoker Past Alcohol Use History: None Reported Past Drug Use History: None Reported - Past Family History Mother Family Medical History: Diabetes Mellitus Medications and Allergies Home Medications Medication Instructions Recorded Confirmed Type Losartan [Cozaar] 50 mg PO DAILY 11/14/14 12/12/22 History Apixaban [Eliquis] 5 mg PO BID 04/11/17 12/12/22 History Simvastatin [Zocor] 10 mg PO DAILY 04/11/17 12/12/22 History Cholecalciferol [Vitamin D3 (25 25 mcg PO HS 12/12/22 12/12/22 History Mcg = 1000 Iu)] Exenatide Microspheres [Bydureon 2 mg SQ NEVAREZ 12/12/22 12/12/22 History Bcise Auto-Injector] FLUoxetine HCL [PROzac] 20 mg PO DAILY 12/12/22 12/12/22 History Ferrous Sulfate [Feosol] 325 mg PO HS 12/12/22 12/12/22 History Furosemide [Lasix] 20 mg PO HS 12/12/22 12/12/22 History Insulin Glargine,Hum.rec.anlog 30 units SQ HS 12/12/22 12/12/22 History [Lantus Solostar Pen] Insulin Lispro [humaLOG Kwikpen] See Protocol SQ TID-W/MEALS 12/12/22 12/12/22 History Nystatin 100,000Unit/gm Cream 1 applic TOPICAL BID 12/12/22 12/12/22 History [Mycostatin Cream] Sulfamethox-Tmp 800-160Mg [Bactrim 1 tab PO Q12HR 12/12/22 12/12/22 History DS 800-160 mg] Testosterone [Androgel 1.62% Gel 2 packet TOPICAL DAILY 12/12/22 12/12/22 History Packet] carvediloL [Coreg] 25 mg PO BID 12/12/22 12/12/22 History Allergies Allergy/AdvReac Type Severity Reaction Status Date / Time lisinopril [From Prinivil] AdvReac Cough Verified 12/12/22 20:43 Physical Exam Vitals: Vital Signs Temp Pulse Pulse Resp BP BP Pulse Ox 12/13/22 07:52 97.9 F 74 19 104/61 100 12/13/22 06:22 73 21 132/61 94 L 12/13/22 04:45 70 15 108/95 95 12/13/22 01:10 86 17 108/95 96 12/12/22 21:40 63 20 98/53 93 L 12/12/22 20:49 60 18 93/75 95 12/12/22 19:11 99.1 F 60 16 97/57 99 Intake and Output 12/12/22 12/13/22 12/13/22 22:59 06:59 14:59 Other: Weight 154.675 kg 154.675 kg Results CBC & Chem 7: 12/12/22 19:30 12/13/22 10:25 Labs: Abnormal Lab Results - Last 24 Hours (Table) 12/12/22 12/12/22 12/12/22 Range/Units 09:52 19:30 19:30 RBC 4.25 L (4.30-5.90) m/uL Neutrophils # 9.4 H (1.3-7.7) k/uL Lymphocytes # 0.1 L (1.0-4.8) k/uL Sodium 134 L (137-145) mmol/L BUN 88 H (9-20) mg/dL Creatinine 3.48 H (0.66-1.25) mg/dL Glucose 121 H (74-99) mg/dL POC Glucose (mg/dL) (70-110) mg/dL Calcium 7.8 L (8.4-10.2) mg/dL Total Protein 6.1 L (6.3-8.2) g/dL Albumin 3.4 L (3.5-5.0) g/dL Urine Ketones Trace H (Negative) 12/13/22 Range/Units 08:12 RBC (4.30-5.90) m/uL Neutrophils # (1.3-7.7) k/uL Lymphocytes # (1.0-4.8) k/uL Sodium (137-145) mmol/L BUN (9-20) mg/dL Creatinine (0.66-1.25) mg/dL Glucose (74-99) mg/dL POC Glucose (mg/dL) 142 H (70-110) mg/dL Calcium (8.4-10.2) mg/dL Total Protein (6.3-8.2) g/dL Albumin (3.5-5.0) g/dL Urine Ketones (Negative) Thrombosis Risk Factor Assmnt - Choose All That Apply Any of the Below Risk Factors Present?: Yes Each Factor Represents 1 point: Heart failure (<1month), Medical pt on bed rest, Obesity (BMI >25), Swollen legs (current) Other Risk Factors: Yes Each Risk Factor Represents 2 Points: Age 61-74 years Other congenital or acquired thrombophilia - If yes, enter type in comment: Yes Thrombosis Risk Factor Assessment Total Risk Factor Score: 6 Thrombosis Risk Factor Assessment Level: High Risk
[2022-12-13 16:20] LABS: Glucose,Whole Blood 429 mg/dL (70-110)
[2022-12-13 16:20] LABS: Glucose,Whole Blood 529 mg/dL (70-110)
[2022-12-13] MEDS: INSULIN ASPART (NovoLOG) 100 UNIT/ML VIAL SQ SCH (16:28)
[2022-12-13 16:56] LABS: Glucose,Whole Blood 562 mg/dL (70-110)
[2022-12-13 16:57] LABS: Glucose,Whole Blood 384 mg/dL (70-110)
[2022-12-13 17:29] LABS: African American GFR (CKD) 19 (>60 ml/min/1.73 sqM); Anion Gap 10 mmol/L; Blood Urea Nitrogen 98 mg/dL (9-20); Calcium 7.1 mg/dL (8.4-10.2); Carbon Dioxide 24 mmol/L (22-30); Chloride 98 mmol/L (98-107); Glucose 323 mg/dL (74-99); Non-African American GFR(CKD) 17 (>60 ml/min/1.73 sqM); Potassium 4.8 mmol/L (3.5-5.1); Sodium 132 mmol/L (137-145)
[2022-12-13] MEDS ORDERED: INSULIN DETEMIR (LEVEMIR) 100 UNIT/ML SYR SQ SCH (21:00)
[2022-12-13 21:20] LABS: Glucose,Whole Blood 249 mg/dL (70-110)
[2022-12-13] MEDS: CHOLECALCIFEROL 25 MCG (1000 IU) TABLET PO SCH (21:48)
[2022-12-13] MEDS: FERROUS SULFATE 325 MG TAB PO SCH (21:48)
--- NOTE | 2022-12-13 22:03 | P.CONS ---
History of Present Illness - Reason for Consult Consult date: 12/13/22 Cellulitis Requesting physician: Anatoliy Alvarez - Chief Complaint Generalized weakness and shortness of breath x few days - History of Present Illness Patient is a 67-year-old male with a past medical history significant for diabetes mellitus hypertension hyperlipidemia atrial fibrillation obstructive sleep apnea presenting to the ER for evaluation of generalized weakness and fatigue patient also have increasing swelling to the lower extremity and apparently the patient has developed ulceration to the right medial posterior lower leg patient mention he did have increasing swelling to the leg has developed a blister that has ruptured leading to this ulceration patient complaining of pain to the right lower extremity leg wound area to be sharp 6-7 out of 10 with no radiation with associated swelling redness and did have some clear drainage, patient on presentation to the hospital was running a low-grade fever of 99.1 degrees for night did have a normal white count but with a left shift patient did have elevated BUN/creatinine with a creatinine 3.48 GFR is 20 liver exams are normal urine has been negative patient did have a chest x- ray lower lung volumes with generalized hazy appearance could represent atelectasis versus pulmonary edema patient did have a venous Doppler that was negative for DVT patient was started on Unasyn 1.5 g every 6 hours infectious disease was consulted for further management of antibiotic therapy Review of Systems Positive point and negatives has been mentioned in the HPI, complete review of systems was performed and all other systems are negative Past Medical History Past Medical History: Atrial Fibrillation, Cancer, Diabetes Mellitus, Hyperli pidemia, Hypertension, Sleep Apnea/CPAP/BIPAP Additional Past Medical History / Comment(s): Basal cell carcinoma, Heart murmur History of Any Multi-Drug Resistant Organisms: None Reported Past Surgical History: No Surgical Hx Reported Additional Past Surgical History / Comment(s): Cataract surgery right eye, 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 Past Anesthesia/Blood Transfusion Reactions: No Reported Reaction Past Psychological History: Depression Smoking Status: Never smoker Past Alcohol Use History: None Reported Past Drug Use History: None Reported - Past Family History Mother Family Medical History: Diabetes Mellitus Medications and Allergies Home Medications Medication Instructions Recorded Confirmed Type Apixaban [Eliquis] 5 mg PO BID 04/11/17 12/12/22 History Cholecalciferol [Vitamin D3 (25 25 mcg PO HS 12/12/22 12/12/22 History Mcg = 1000 Iu)] Exenatide Microspheres [Bydureon 2 mg SQ NEVAREZ 12/12/22 12/12/22 History Bcise Auto-Injector] FLUoxetine HCL [PROzac] 20 mg PO DAILY 12/12/22 12/12/22 History Ferrous Sulfate [Iron (65 MG 325 mg PO HS 12/12/22 12/12/22 History Elemental)] Insulin Glargine,Hum.rec.anlog 30 units SQ HS 12/12/22 12/12/22 History [Lantus Solostar Pen] Insulin Lispro [humaLOG Kwikpen] See Protocol SQ TID-W/MEALS 12/12/22 12/12/22 History Nystatin 100,000Unit/gm Cream 1 applic TOPICAL BID 12/12/22 12/12/22 History [Mycostatin Cream] Testosterone [Androgel 1.62% Gel 2 packet TOPICAL DAILY 12/12/22 12/12/22 History Packet] carvediloL [Coreg] 25 mg PO BID 12/12/22 12/12/22 History Acetaminophen Tab [Tylenol] 500 mg PO Q6HR PRN tab 12/17/22 Rx Amoxic-Pot Clav 875-125Mg 1 tab PO BID 10 Days #20 tab 12/17/22 Rx [Augmentin 875-125] Atorvastatin [Lipitor] 10 mg PO DAILY tab 12/17/22 Rx Losartan [Cozaar] 25 mg PO DAILY #0 12/17/22 12/12/22 Rx Tamsulosin [Flomax] 0.4 mg PO PC-SUPPER cap 12/17/22 Rx Allergies Allergy/AdvReac Type Severity Reaction Status Date / Time lisinopril [From Prinivil] AdvReac Cough Verified 12/12/22 20:43 Physical Exam Vitals: Vital Signs Temp Pulse Pulse Resp BP BP Pulse Ox 12/13/22 07:52 97.9 F 74 19 104/61 100 12/13/22 06:22 73 21 132/61 94 L 12/13/22 04:45 70 15 108/95 95 12/13/22 01:10 86 17 108/95 96 12/12/22 21:40 63 20 98/53 93 L 12/12/22 20:49 60 18 93/75 95 12/12/22 19:11 99.1 F 60 16 97/57 99 Intake and Output 12/12/22 12/13/22 12/13/22 22:59 06:59 14:59 Other: Weight 154.675 kg 154.675 kg GENERAL DESCRIPTION: Elderly male lying in bed, no distress. No tachypnea or accessory muscle of respiration use. HEENT: Shows Pallor , no scleral icterus. Oral mucous membrane is dry. No pharyngeal erythema or thrush NECK: Trachea central, no thyromegaly. LUNGS: Unlabored breathing. Decreased intensity of breath sounds No wheeze or crackle. HEART: S1, S2, regular rate and rhythm. No loud murmur ABDOMEN: Soft, no tenderness , guarding or rigidity, no organomegaly EXTREMITIES: Diffuse swelling bilaterally extremity right lower extremity did have a superficial ulceration surrounding redness no foul-smelling drainage SKIN: No rash, no masses palpable. NEUROLOGICAL: The patient is awake, alert, oriented x3, mood and affect normal. Results CBC & Chem 7: 12/15/22 06:44 12/17/22 10:14 Labs: Abnormal Lab Results - Last 24 Hours (Table) 12/12/22 12/12/22 12/12/22 Range/Units 09:52 19:30 19:30 RBC 4.25 L (4.30-5.90) m/uL Neutrophils # 9.4 H (1.3-7.7) k/uL Lymphocytes # 0.1 L (1.0-4.8) k/uL Sodium 134 L (137-145) mmol/L BUN 88 H (9-20) mg/dL Creatinine 3.48 H (0.66-1.25) mg/dL Glucose 121 H (74-99) mg/dL POC Glucose (mg/dL) (70-110) mg/dL Calcium 7.8 L (8.4-10.2) mg/dL Total Protein 6.1 L (6.3-8.2) g/dL Albumin 3.4 L (3.5-5.0) g/dL Urine Ketones Trace H (Negative) 12/13/22 12/13/22 Range/Units 08:12 11:22 RBC (4.30-5.90) m/uL Neutrophils # (1.3-7.7) k/uL Lymphocytes # (1.0-4.8) k/uL Sodium (137-145) mmol/L BUN (9-20) mg/dL Creatinine (0.66-1.25) mg/dL Glucose (74-99) mg/dL POC Glucose (mg/dL) 142 H 279 H (70-110) mg/dL Calcium (8.4-10.2) mg/dL Total Protein (6.3-8.2) g/dL Albumin (3.5-5.0) g/dL Urine Ketones (Negative) Assessment and Plan (1) Cellulitis Status: Acute Code(s): L03.90 - CELLULITIS, UNSPECIFIED SNOMED Code(s): 004067140 (2) Type 2 diabetes mellitus with other skin ulcer Status: Acute Code(s): E11.622 - TYPE 2 DIABETES MELLITUS WITH OTHER SKIN ULCER; L98.499 - NON-PRESSURE CHRONIC ULCER OF SKIN OF SITES W UNSP SEVERITY SNOMED Code(s): 337171040 Plan: 1patient with acute right lower extremity cellulitis in this patient with diffuse swelling to bilateral lower extremities evidence of fluid overload with a superficial laceration to the right lower leg from a ruptured blister we will need to cover for the gram-positive skin deniz to be the likely pathogen. 2patient with renal insufficiency high risk for nephrotoxicity 3-we will adjust the dose of Unasyn to 3 g every 12 hours 4-local wound care with a dry Aquacel silver dressing followed by Andrea wrap to keep the swelling down and marked the area of the redness We will follow on clinical condition and cultures to further adjust medication if needed Thank you for this consultation we will follow the patient along with you Time with Patient: Greater than 30
[2022-12-13] MEDS: AMPICILLIN-SULBACTAM 3 GM in SODIUM CHLORIDE 0.9% 100 ML IVPB SCH (23:18)
[2022-12-14] MEDS: ACETAMINOPHEN TAB 500 MG TAB PO PRN ×2 (05:39→15:54)
[2022-12-14 06:16] LABS: Glucose,Whole Blood 189 mg/dL (70-110)
[2022-12-14] MEDS: INSULIN ASPART (NovoLOG) 100 UNIT/ML VIAL SQ SCH ×4 (06:18→18:02)
[2022-12-14 07:54] LABS: African American GFR (CKD) 23 (>60 ml/min/1.73 sqM); Anion Gap 9 mmol/L; Carbon Dioxide 24 mmol/L (22-30); Chloride 101 mmol/L (98-107); Glucose 187 mg/dL (74-99); Non-African American GFR(CKD) 20 (>60 ml/min/1.73 sqM); Potassium 4.8 mmol/L (3.5-5.1); Sodium 134 mmol/L (137-145)
[2022-12-14 08:02] LABS: Blood Urea Nitrogen 102 mg/dL (9-20)
[2022-12-14] MEDS ORDERED: FAMOTIDINE 20 MG TAB PO SCH (09:00)
[2022-12-14] MEDS: APIXABAN 5 MG TAB PO SCH ×2 (09:16→21:57)
[2022-12-14] MEDS: ATORVASTATIN 10 MG TAB PO SCH (09:16)
[2022-12-14] MEDS: SODIUM BICARBONATE TAB 650 MG TAB PO SCH ×3 (09:16→21:57)
[2022-12-14] MEDS: FLUoxetine HCL 20 MG CAP PO SCH (09:16)
[2022-12-14] MEDS: carvediloL 12.5 MG TAB PO SCH ×2 (09:16→21:57)
[2022-12-14] MEDS: HYDROPHILIC CREAM 180 GM TUBE TOPICAL SCH (09:17)
[2022-12-14] MEDS: SODIUM CHLORIDE 0.9% 1,000 ML IV SCH ×2 (09:17→23:21)
[2022-12-14] MEDS ORDERED: SODIUM CHLORIDE 0.9% 1,000 ML IV ONE (09:58)
--- NOTE | 2022-12-14 10:43 | P.PN ---
Subjective Patient is seen in follow-up for acute kidney injury. Renal function improved. BUN higher. Blood pressure on the lower side. Required straight c atheterization last night. No vomiting or diarrhea. Denies any active bleeding. Vital signs are stable. Blood pressure low. General: No acute distress. HEENT: Head exam is unremarkable. Nasal cannula. LUNGS: No audible rhonchi or wheezes. HEART: Rate and Rhythm are regular. ABDOMEN: Obese, nontender. EXTREMITITES: Lower extremity is wrapped. 1+ edema. Objective - Vital Signs Vital signs: Vital Signs Temp 98.2 F 12/14/22 06:52 Pulse 55 L 12/14/22 06:52 Resp 18 12/14/22 06:52 BP 88/55 12/14/22 06:52 Pulse Ox 96 12/14/22 06:52 FiO2 28 12/14/22 03:50 Intake & Output 12/13/22 12/14/22 12/14/22 18:59 06:59 18:59 Intake Total 1180 Output Total 600 500 Balance -600 680 Weight 154.675 kg Intake: Intake, IV Titration 600 Amount Sodium Chloride 0.9% 1, 600 000 ml @ 75 mls/hr IV . [id number] [facility] Rx#:[id number] Oral 580 Output: Urine 600 500 Straight 500 Other: Voiding Method External Catheter External Catheter # Voids 0 - Labs CBC & Chem 7: 12/12/22 19:30 12/14/22 06:51 Labs: Abnormal Lab Results - Last 24 Hours (Table) 12/13/22 12/13/22 12/13/22 Range/Units 10:25 11:22 13:30 ABG pH 7.30 L (7.35-7.45) ABG pCO2 52 H (35-45) mmHg ABG pO2 81 L (83-108) mmHg ABG Total CO2 27 H (19-24) mmol/L ABG O2 Saturation (94-97) % Sodium 132 L (137-145) mmol/L Potassium 5.6 H (3.5-5.1) mmol/L Chloride 97 L (98-107) mmol/L Carbon Dioxide 20 L (22-30) mmol/L BUN 97 H (9-20) mg/dL Creatinine 3.25 H (0.66-1.25) mg/dL Glucose 290 H (74-99) mg/dL POC Glucose (mg/dL) 279 H (70-110) mg/dL Hemoglobin A1c (0.0-6.0) % Osmolality 320 H (280-301) mosm/kg Calcium 7.5 L (8.4-10.2) mg/dL 12/13/22 12/13/22 12/13/22 Range/Units 15:33 16:17 16:18 ABG pH 7.31 L (7.35-7.45) ABG pCO2 48 H (35-45) mmHg ABG pO2 (83-108) mmHg ABG Total CO2 26 H (19-24) mmol/L ABG O2 Saturation 97.7 H (94-97) % Sodium (137-145) mmol/L Potassium (3.5-5.1) mmol/L Chloride (98-107) mmol/L Carbon Dioxide (22-30) mmol/L BUN (9-20) mg/dL Creatinine (0.66-1.25) mg/dL Glucose (74-99) mg/dL POC Glucose (mg/dL) 529 H 429 H (70-110) mg/dL Hemoglobin A1c (0.0-6.0) % Osmolality (280-301) mosm/kg Calcium (8.4-10.2) mg/dL 12/13/22 12/13/22 12/13/22 Range/Units 16:53 16:56 17:01 ABG pH (7.35-7.45) ABG pCO2 (35-45) mmHg ABG pO2 (83-108) mmHg ABG Total CO2 (19-24) mmol/L ABG O2 Saturation (94-97) % Sodium 132 L (137-145) mmol/L Potassium (3.5-5.1) mmol/L Chloride (98-107) mmol/L Carbon Dioxide (22-30) mmol/L BUN 98 H (9-20) mg/dL Creatinine 3.53 H (0.66-1.25) mg/dL Glucose 323 H (74-99) mg/dL POC Glucose (mg/dL) 562 H 384 H (70-110) mg/dL Hemoglobin A1c (0.0-6.0) % Osmolality (280-301) mosm/kg Calcium 7.1 L (8.4-10.2) mg/dL 12/13/22 12/14/22 12/14/22 Range/Units 21:19 06:14 06:51 ABG pH (7.35-7.45) ABG pCO2 (35-45) mmHg ABG pO2 (83-108) mmHg ABG Total CO2 (19-24) mmol/L ABG O2 Saturation (94-97) % Sodium (137-145) mmol/L Potassium (3.5-5.1) mmol/L Chloride (98-107) mmol/L Carbon Dioxide (22-30) mmol/L BUN (9-20) mg/dL Creatinine (0.66-1.25) mg/dL Glucose (74-99) mg/dL POC Glucose (mg/dL) 249 H 189 H (70-110) mg/dL Hemoglobin A1c 6.6 H (0.0-6.0) % Osmolality (280-301) mosm/kg Calcium (8.4-10.2) mg/dL 12/14/22 Range/Units 06:51 ABG pH (7.35-7.45) ABG pCO2 (35-45) mmHg ABG pO2 (83-108) mmHg ABG Total CO2 (19-24) mmol/L ABG O2 Saturation (94-97) % Sodium 134 L (137-145) mmol/L Potassium (3.5-5.1) mmol/L Chloride (98-107) mmol/L Carbon Dioxide (22-30) mmol/L BUN 102 H* (9-20) mg/dL Creatinine 3.03 H (0.66-1.25) mg/dL Glucose 187 H (74-99) mg/dL POC Glucose (mg/dL) (70-110) mg/dL Hemoglobin A1c (0.0-6.0) % Osmolality (280-301) mosm/kg Calcium 7.0 L (8.4-10.2) mg/dL Assessment and Plan Plan: Assessment: 1. Acute kidney injury secondary to ATN secondary to hypotension, nonsteroidals, Bactrim and infection. Creatinine 3.48 on admission and is 3.03 today. No hydronephrosis noted on kidney ultrasound. UA benign. 2. Right lower extremity ulceration on antibiotics. 3. Hyperkalemia secondary to acute kidney injury, acidosis, hyperglycemia. Was also on Bactrim and losartan which are currently held. Stable. 4. Metabolic acidosis secondary to acute kidney injury. Improved. On oral bicarbonate. 5. Diabetes mellitus. 6. Hypotension possibly due to sepsis. Plan: Maintain IV fluids. 1 L normal saline bolus now. Continue to monitor bladder scans to make sure no urinary retention. Insert Meeks catheter if has persistent retention. Continue to hold antihypertensives. Avoid nephrotoxins. Continue to monitor renal function and urine output. Check a.m. cortisol level. Check hemoglobin to make sure no GI bleed. May need to be transferred to ICU for vasopressor support. Discussed with nurse.
[2022-12-14 11:42] LABS: Glucose,Whole Blood 285 mg/dL (70-110)
--- NOTE | 2022-12-14 12:13 | P.PN ---
Subjective Progress Note Date: 12/14/22 This is a 67-year-old male patient with a known history of atrial fibrillation anticoagulated with Eliquis, diabetes mellitus, chronic lower extremity edema, hyperlipidemia, hypertension, morbid obesity, obstructive sleep apnea maintained on CPAP in the outpatient setting, nonsmoker. He also has chronic lower extremity edema right greater than left with redness and drainage. He presented here to the emergency room last evening with complaints of generalized weakness and fatigue. Unable to walk with distance to his car without having to sit down. EKG revealed sinus rhythm without any significant ST or T wave abnormalities. Doppler of the right lower extremity revealed no evidence of DVT. White count 9.8. Hemoglobin 13.1. Platelets 219. Sodium 132. Potassium 5.6. Bicarb 20. BUN 97. Creatinine 3.25. Blood sugar 290. ProBNP 1730. He was admitted to the regular medical floor. He's been seen by nephrology and infectious disease. He is currently on Unasyn. Today after approximately 1:15 a rapid response team was called as the patient was hypotensive, tachypneic and experiencing labored breathing. Chest x-ray revealed cardiomegaly with some patchy left basilar atelectasis. Arterial blood gases on 36% FiO2 revealed a PaO2 of 81, pCO2 of 52 and a pH of 7.30. He was placed on BiPAP 10/5 on 40% FiO2 and this consult was placed. He is currently resting in bed. He is arousa ble but still somewhat obtunded. His FiO2 was decreased to 30% and his BiPAP settings were increased to 12/6. The patient is seen today 12/14/2022 in follow-up on the regular medical floor. He is more awake and alert today compared to yesterday. Follow-up blood gases revealed a PaO2 of 99, pCO2 of 48 and a pH of 7.31. Answering questions appropriately. Currently off the BiPAP which is programmed at 12/6 and 28% and now currently on 3 L/m per nasal cannula. Denies any worsening shortness of breath, cough or congestion. Sodium 134. Potassium 4.8. Bicarb 24. BUN 102. Creatinine 3.03. Glucose 187. He remains on antibiotics in the form of Unasyn. Anticoagulated with Eliquis. Receiving sodium bicarbonate tablets and a liter of fluid per nephrology. 0.9 normal saline at 75 ML's per hour. Objective - Vital Signs Vital signs: Vital Signs Temp 98.2 F 12/14/22 06:52 Pulse 55 L 12/14/22 06:52 Resp 18 12/14/22 06:52 BP 88/55 12/14/22 06:52 Pulse Ox 96 12/14/22 06:52 FiO2 28 12/14/22 03:50 Intake & Output 12/13/22 12/14/22 12/14/22 18:59 06:59 18:59 Intake Total 1180 Output Total 600 500 Balance -600 680 Weight 154.675 kg Intake: Intake, IV Titration 600 Amount Sodium Chloride 0.9% 1, 600 000 ml @ 75 mls/hr IV . [id number] [facility] Rx#:[id number] Oral 580 Output: Urine 600 500 Straight 500 Other: Voiding Method External Catheter External Catheter # Voids 0 - Exam GENERAL EXAM: Awake, alert, morbidly obese 67-year-old male, on 3 L nasal cannula, comfortable in no apparent distress. HEAD: Normocephalic. EYES: Normal reaction of pupils, equal size. NOSE: Clear with pink turbinates. THROAT: No erythema or exudates. NECK: No masses, no JVD. CHEST: No chest wall deformity. LUNGS: Equal air entry with no crackles, wheeze, rhonchi or dullness. CVS: S1 and S2 normal with no audible murmur, regular rhythm. ABDOMEN: No hepatosplenomegaly, normal bowel sounds, no guarding or rigidity. SPINE: No scoliosis or deformity SKIN: No rashes CENTRAL NERVOUS SYSTEM: No focal deficits, tone is normal in all 4 extremities. EXTREMITIES: Andrea wraps to the bilateral lower extremities No clubbing, no cyanosis. Peripheral pulses are intact. - Labs CBC & Chem 7: 12/12/22 19:30 12/14/22 06:51 Labs: Abnormal Lab Results - Last 24 Hours (Table) 12/13/22 12/13/22 12/13/22 Range/Units 10:25 13:30 15:33 ABG pH 7.30 L 7.31 L (7.35-7.45) ABG pCO2 52 H 48 H (35-45) mmHg ABG pO2 81 L (83-108) mmHg ABG Total CO2 27 H 26 H (19-24) mmol/L ABG O2 Saturation 97.7 H (94-97) % Sodium (137-145) mmol/L BUN (9-20) mg/dL Creatinine (0.66-1.25) mg/dL Glucose (74-99) mg/dL POC Glucose (mg/dL) (70-110) mg/dL Hemoglobin A1c (0.0-6.0) % Osmolality 320 H (280-301) mosm/kg Calcium (8.4-10.2) mg/dL 12/13/22 12/13/22 12/13/22 Range/Units 16:17 16:18 16:53 ABG pH (7.35-7.45) ABG pCO2 (35-45) mmHg ABG pO2 (83-108) mmHg ABG Total CO2 (19-24) mmol/L ABG O2 Saturation (94-97) % Sodium (137-145) mmol/L BUN (9-20) mg/dL Creatinine (0.66-1.25) mg/dL Glucose (74-99) mg/dL POC Glucose (mg/dL) 529 H 429 H 562 H (70-110) mg/dL Hemoglobin A1c (0.0-6.0) % Osmolality (280-301) mosm/kg Calcium (8.4-10.2) mg/dL 12/13/22 12/13/22 12/13/22 Range/Units 16:56 17:01 21:19 ABG pH (7.35-7.45) ABG pCO2 (35-45) mmHg ABG pO2 (83-108) mmHg ABG Total CO2 (19-24) mmol/L ABG O2 Saturation (94-97) % Sodium 132 L (137-145) mmol/L BUN 98 H (9-20) mg/dL Creatinine 3.53 H (0.66-1.25) mg/dL Glucose 323 H (74-99) mg/dL POC Glucose (mg/dL) 384 H 249 H (70-110) mg/dL Hemoglobin A1c (0.0-6.0) % Osmolality (280-301) mosm/kg Calcium 7.1 L (8.4-10.2) mg/dL 12/14/22 12/14/22 12/14/22 Range/Units 06:14 06:51 06:51 ABG pH (7.35-7.45) ABG pCO2 (35-45) mmHg ABG pO2 (83-108) mmHg ABG Total CO2 (19-24) mmol/L ABG O2 Saturation (94-97) % Sodium 134 L (137-145) mmol/L BUN 102 H* (9-20) mg/dL Creatinine 3.03 H (0.66-1.25) mg/dL Glucose 187 H (74-99) mg/dL POC Glucose (mg/dL) 189 H (70-110) mg/dL Hemoglobin A1c 6.6 H (0.0-6.0) % Osmolality (280-301) mosm/kg Calcium 7.0 L (8.4-10.2) mg/dL 12/14/22 Range/Units 11:41 ABG pH (7.35-7.45) ABG pCO2 (35-45) mmHg ABG pO2 (83-108) mmHg ABG Total CO2 (19-24) mmol/L ABG O2 Saturation (94-97) % Sodium (137-145) mmol/L BUN (9-20) mg/dL Creatinine (0.66-1.25) mg/dL Glucose (74-99) mg/dL POC Glucose (mg/dL) 285 H (70-110) mg/dL Hemoglobin A1c (0.0-6.0) % Osmolality (280-301) mosm/kg Calcium (8.4-10.2) mg/dL Assessment and Plan Assessment: Generalized weakness and fatigue secondary to acute kidney injury, suspected underlying infection and cellulitis of the lower extremities Acute hypercapnic respiratory failure secondary to morbid obesity History of obstructive sleep apnea utilizing CPAP in the outpatient setting Acute kidney injury possibly related to hypotension, acute tubular necrosis, nonsteroidals Hypotension possibly related to underlying infection Acute on chronic lower extremity edema and possible cellulitis, currently on Unasyn Chronic venous stasis of the lower extremities Morbid obesity with a BMI of 45 kg per metered squared History of atrial fibrillation anticoagulated with Eliquis Hyperlipidemia History of hypertension Diabetes mellitus Plan: The patient was seen and evaluated Labs and medications reviewed Currently on 3 L nasal cannula Utilized BiPAP throughout the night and during the day if needed Continue antibiotics for cellulitis We will continue to follow I have personally seen and examined the patient, performed the documentation and the assessment and plan as written. Number of minutes spent on the visit: 10.
[2022-12-14] MEDS: AMPICILLIN-SULBACTAM 3 GM in SODIUM CHLORIDE 0.9% 100 ML IVPB SCH ×2 (12:56→23:41)
--- NOTE | 2022-12-14 14:12 | P.PN ---
Progress Note - Text Progress Note Date: 12/14/22 Chief Complaint: Right leg wound This is a pleasant 67-year-old patient, was chronic stable medical conditions include atrial fibrillation, diabetes mellitus type 2, hyperlipidemia, hypertension, obstructive sleep apnea, basal cell carcinoma, depression. Patient lives alone. Patient had a blister in the right leg for about a week. Blister broke down. Swelling in the right lower extremity chronically more edema in the right leg compared to left. Had some Fever and chills. Appetite is fair. No change in bowel pattern. Does use a CPAP at night. December 14: Yesterday episode of hypotension. Was given IV fluids. Also was lethargic because of not using CPAP. Rather tired. Did well with CPAP. Patient's son is visiting. Patient awake. Did eating well. IV Unasyn Active Medications Acetaminophen (Acetaminophen Tab 500 Mg Tab) 500 mg PO Q6HR PRN PRN Reason: Fever and/ or Pain Last Admin: 12/14/22 05:39 Dose: 500 mg Apixaban (Apixaban 5 Mg Tab) 5 mg PO BID [facility]; Protocol Last Admin: 12/14/22 09:16 Dose: 5 mg Atorvastatin Calcium (Atorvastatin 10 Mg Tab) 10 mg PO DAILY [facility] Last Admin: 12/14/22 09:16 Dose: 10 mg Carvedilol (Carvedilol 12.5 Mg Tab) 25 mg PO BID [facility] Last Admin: 12/14/22 09:16 Dose: Not Given Cholecalciferol (Cholecalciferol 25 Mcg (1000 Iu) Tablet) 25 mcg PO [facility] Last Admin: 12/13/22 21:48 Dose: 25 mcg Dextrose/Water (Dextrose 50% Syringe 50 Ml) 25 ml IVP PER PROTOCOL PRN; Protocol PRN Reason: Hypoglycemia Dextrose/Water (Dextrose 50% Syringe 50 Ml) 50 ml IVP PER PROTOCOL PRN; Protocol PRN Reason: Hypoglycemia Ferrous Sulfate (Ferrous Sulfate 325 Mg Tab) 325 mg PO [facility] Last Admin: 12/13/22 21:48 Dose: 325 mg Fluoxetine HCl (Fluoxetine Hcl 20 Mg Cap) 20 mg PO DAILY [facility] Last Admin: 12/14/22 09:16 Dose: 20 mg Sodium Chloride (Saline 0.9%) 1,000 mls @ 75 mls/hr IV .[id number] [facility] Last Admin: 12/14/22 09:17 Dose: 75 mls/hr Ampicillin Sodium/Sulbactam (Sodium 3 gm/ Sodium Chloride) 100 mls @ 200 mls/hr IVPB Q12H [facility]; Protocol Last Admin: 12/14/22 12:56 Dose: 200 mls/hr Insulin Aspart (Insulin Aspart (Novolog) 100 Unit/Ml Vial) 0 unit SQ AC-TID [facility]; Protocol Last Admin: 12/14/22 12:13 Dose: 6 unit Insulin Detemir (Insulin Detemir (Levemir) 100 Unit/Ml Syr) 30 unit SQ HS [facility] Last Admin: 12/13/22 21:48 Dose: 30 unit Multi-Ingred Cream/Lotion/Oil/Oint (Hydrophilic Cream 180 Gm Tube) 1 applic TOPICAL DAILY [facility]; Protocol Last Admin: 12/14/22 09:17 Dose: 1 applic Naloxone HCl (Naloxone 0.4 Mg/Ml 1 Ml Vial) 0.2 mg IV Q2M PRN PRN Reason: Opioid Reversal Ondansetron HCl (Ondansetron 4 Mg/2 Ml Vial) 4 mg IVP Q8HR PRN PRN Reason: Nausea And Vomiting Sodium Bicarbonate (Sodium Bicarbonate Tab 650 Mg Tab) 650 mg PO TID [facility] Last Admin: 12/14/22 09:16 Dose: 650 mg Past medical history to include: Atrial fibrillation, diabetes mellitus, hyperlipidemia, hypertension, obstructive sleep apnea, heart murmur depression Social history: No smoking or alcohol. Lives alone Physical examination: VITAL SIGNS: 98.2, 55, 18, 88/55, 96% on 3 L GENERAL: BMI 45, reclining in bed, awake EYES: Pupils equal. Conjunctiva normal. HEENT: External appearance of nose and ears normal, oral cavity grossly normal. NECK: JVD not raised; masses not palpable. HEART: First and second heart sounds are normal; no edema. LUNGS: Respiratory rate increased; clear to auscultation. ABDOMEN: Soft, nontender, liver spleen not palpable, no masses palpable. PSYCH: Alert and oriented x3; mood and affect a bit anxiousl. MUSCULOSKELETAL:No Clubbing/cyanosis;muscles-grossly intact EXTREMITY: Swelling of the right lower extremity greater than compared to left. Large raw area of skin breakdown on the medial aspect of the right lower leg. Some symptoms with surrounding cellulitis. Small areas of superficial wound on the right lower extremity. INVESTIGATIONS, reviewed in the clinical context: Renal ultrasound: Suboptimal study. Corticomedullary differentiation maintained. December 14: Sodium 134 potassium 4.8 BUN 102 creatinine 3.03 White count 9.18 globin 13.1 platelets 219 sodium 134 potassium 4.9 BUN 88 creatinine 3.48 EKG tracing personally reviewed by me-normal sinus rhythm. Rate 61 Doppler ultrasound right lower extremity: Negative for DVT Chest x-ray film personally reviewed by me-a bit underpenetrated Assessment and plan: -Acute cellulitis right lower extremity, associated large blister that broke down. Other small areas 2. Patient has chronic edema of the right lower extremity, right greater than left. IV Unasyn. Consultation to ID. -Possibly Chronic kidney disease. Renal ultrasound corticomedullary differentiation maintained. Follow labs closely. -Acute kidney injury, ATN secondary to hypotension. No steroids, Bactrim, infection. Admission creatinine 3.48. Today 3.03 -Morbid obesity BMI 45 Weight loss measures -Diabetes mellitus type 2, chronically on insulin, uncontrolled with hyperglycemia. Follow Accu-Cheks and sliding scale. Increase p.m. dose of 36 units daily at bedtime. We'll also add scheduled Humalog 6 units with meals -Depression Prozac 20 mg -Hyperlipidemia Zocor 10 mg a day -Obstructive sleep apnea, wears CPAP at home Continue home CPAP -Essential hypertension Coreg 25 mg twice a day, Cozaar 50 mg a day -Paroxysmal atrial fibrillation, currently in sinus rhythm Coreg. Eliquis IV Unasyn. Increase Levemir to 36 units at night. Add Humalog 6 units meals. Other medications to continue. Discussed with the patient and son. Repeat labs.
[2022-12-14] MEDS: traMADol 50 MG TAB PO PRN (16:24)
[2022-12-14 16:58] LABS: Glucose,Whole Blood 204 mg/dL (70-110)
[2022-12-14 21:11] LABS: Glucose,Whole Blood 184 mg/dL (70-110)
[2022-12-14] MEDS: CHOLECALCIFEROL 25 MCG (1000 IU) TABLET PO SCH (21:57)
[2022-12-14] MEDS: FERROUS SULFATE 325 MG TAB PO SCH (21:57)
[2022-12-14] MEDS: INSULIN DETEMIR (LEVEMIR) 100 UNIT/ML SYR SQ SCH (21:57)
[2022-12-15 06:06] LABS: Glucose,Whole Blood 171 mg/dL (70-110)
[2022-12-15 07:21] LABS: HCT 39.4 % (39.0-53.0); HGB 12.4 gm/dL (13.0-17.5); Hypochromasia Moderate; MCH 30.7 pg (25.0-35.0); MCHC 31.5 g/dL (31.0-37.0); MCV 97.2 fL (80.0-100.0); Mean Platelet Volume 7.7; Platelet Count 141 k/uL (150-450); RBC 4.06 m/uL (4.30-5.90); RDW 13.7 % (11.5-15.5); WBC 4.6 k/uL (3.8-10.6)
[2022-12-15 07:30] LABS: African American GFR (CKD) 30 (>60 ml/min/1.73 sqM); Anion Gap 5 mmol/L; Blood Urea Nitrogen 89 mg/dL (9-20); Calcium 7.5 mg/dL (8.4-10.2); Carbon Dioxide 30 mmol/L (22-30); Chloride 104 mmol/L (98-107); Glucose 167 mg/dL (74-99); Magnesium 2.7 mg/dL (1.6-2.3); Non-African American GFR(CKD) 26 (>60 ml/min/1.73 sqM); Potassium 5.7 mmol/L (3.5-5.1); Sodium 139 mmol/L (137-145)
[2022-12-15] MEDS: carvediloL 12.5 MG TAB PO SCH ×2 (07:57→20:17)
[2022-12-15] MEDS: FLUoxetine HCL 20 MG CAP PO SCH (07:58)
[2022-12-15] MEDS: ATORVASTATIN 10 MG TAB PO SCH (07:58)
[2022-12-15] MEDS: APIXABAN 5 MG TAB PO SCH ×2 (07:58→20:18)
[2022-12-15] MEDS: INSULIN ASPART (NovoLOG) 100 UNIT/ML VIAL SQ SCH ×6 (07:58→17:06)
[2022-12-15] MEDS: SODIUM BICARBONATE TAB 650 MG TAB PO SCH (08:00)
[2022-12-15] MEDS: HYDROPHILIC CREAM 180 GM TUBE TOPICAL SCH (08:00)
[2022-12-15 08:07] LABS: Lymphocytes # (M) 0.32 k/uL (1.0-4.8); Neutrophils # (M) 3.68 k/uL (1.3-7.7); Neutrophils % (M) 80 %; Nucleated Red Blood Cells 0 /100 WBC (0-0); Total Cells Counted 100
--- NOTE | 2022-12-15 11:13 | P.PN ---
Subjective Progress Note Date: 12/15/22 This is a 67-year-old male patient with a known history of atrial fibrillation anticoagulated with Eliquis, diabetes mellitus, chronic lower extremity edema, hyperlipidemia, hypertension, morbid obesity, obstructive sleep apnea maintained on CPAP in the outpatient setting, nonsmoker. He also has chronic lower extremity edema right greater than left with redness and drainage. He presented here to the emergency room last evening with complaints of generalized weakness and fatigue. Unable to walk with distance to his car without having to sit down. EKG revealed sinus rhythm without any significant ST or T wave abnormalities. Doppler of the right lower extremity revealed no evidence of DVT. White count 9.8. Hemoglobin 13.1. Platelets 219. Sodium 132. Potassium 5.6. Bicarb 20. BUN 97. Creatinine 3.25. Blood sugar 290. ProBNP 1730. He was admitted to the regular medical floor. He's been seen by nephrology and infectious disease. He is currently on Unasyn. Today after approximately 1:15 a rapid response team was called as the patient was hypotensive, tachypneic and experiencing labored breathing. Chest x-ray revealed cardiomegaly with some patchy left basilar atelectasis. Arterial blood gases on 36% FiO2 revealed a PaO2 of 81, pCO2 of 52 and a pH of 7.30. He was placed on BiPAP 10/5 on 40% FiO2 and this consult was placed. He is currently resting in bed. He is arousa ble but still somewhat obtunded. His FiO2 was decreased to 30% and his BiPAP settings were increased to 12/6. The patient is seen today 12/14/2022 in follow-up on the regular medical floor. He is more awake and alert today compared to yesterday. Follow-up blood gases revealed a PaO2 of 99, pCO2 of 48 and a pH of 7.31. Answering questions appropriately. Currently off the BiPAP which is programmed at 12/6 and 28% and now currently on 3 L/m per nasal cannula. Denies any worsening shortness of breath, cough or congestion. Sodium 134. Potassium 4.8. Bicarb 24. BUN 102. Creatinine 3.03. Glucose 187. He remains on antibiotics in the form of Unasyn. Anticoagulated with Eliquis. Receiving sodium bicarbonate tablets and a liter of fluid per nephrology. 0.9 normal saline at 75 ML's per hour. The patient is seen today 12/15/2022 in follow-up on the regular medical floor. He is much more awake and alert. Back to his baseline. Alert and oriented 3. He denies any worsening shortness of breath, cough or congestion. Maintaining good O2 saturations in the 90s on 3 L/m per nasal cannula. He is wearing the BiPAP at night 12/620% FiO2. He remains on antibiotics in the form of Unasyn. Blood cultures revealed no growth. White count 4.6. Hemoglobin 12.4. Platelets 141. Sodium 139. Potassium 5.7. Bicarb 30. BUN 89. Creatinine 2.43. Glucose 167. He has normal saline at 75 ML's per hour. Nephrology is following. Objective - Vital Signs Vital signs: Vital Signs Temp 98.3 F 12/15/22 07:15 Pulse 63 12/15/22 07:15 Resp 18 12/15/22 07:15 BP 125/73 12/15/22 07:15 Pulse Ox 92 L 12/15/22 07:59 FiO2 28 12/14/22 03:50 Intake & Output 12/14/22 12/15/22 12/15/22 18:59 06:59 18:59 Intake Total 180 725 Output Total 1000 Balance 180 -275 Intake: Intake, IV Titration 725 Amount Ampicillin-Sulbactam 3 gm 200 In Sodium Chloride 0.9% 100 ml @ 200 mls/hr IVPB Q12H [facility] Rx#:[id number] Sodium Chloride 0.9% 1, 525 000 ml @ 75 mls/hr IV . [id number] [facility] Rx#:[id number] Oral 180 Output: Urine 1000 Other: Voiding Method External Catheter Indwelling Catheter Indwelling Catheter # Bowel Movements 1 - Exam GENERAL EXAM: Awake, oriented 3, morbidly obese 67-year-old male, on 3 L nasal cannula, comfortable in no apparent distress. HEAD: Normocephalic. EYES: Normal reaction of pupils, equal size. NOSE: Clear with pink turbinates. THROAT: No erythema or exudates. NECK: No masses, no JVD. CHEST: No chest wall deformity. LUNGS: Equal air entry with faint crackles in the left base. CVS: S1 and S2 normal with no audible murmur, regular rhythm. ABDOMEN: No hepatosplenomegaly, normal bowel sounds, no guarding or rigidity. SPINE: No scoliosis or deformity SKIN: No rashes CENTRAL NERVOUS SYSTEM: No focal deficits, tone is normal in all 4 extremities. EXTREMITIES: Andrea wraps to the bilateral lower extremities No clubbing, no cyanosis. Peripheral pulses are intact. - Labs CBC & Chem 7: 12/15/22 06:44 12/15/22 06:44 Labs: Abnormal Lab Results - Last 24 Hours (Table) 12/14/22 12/14/22 12/14/22 Range/Units 11:41 16:56 21:10 RBC (4.30-5.90) m/uL Hgb (13.0-17.5) gm/dL Plt Count (150-450) k/uL Lymphocytes # (Manual) (1.0-4.8) k/uL Potassium (3.5-5.1) mmol/L BUN (9-20) mg/dL Creatinine (0.66-1.25) mg/dL Glucose (74-99) mg/dL POC Glucose (mg/dL) 285 H 204 H 184 H (70-110) mg/dL Calcium (8.4-10.2) mg/dL Magnesium (1.6-2.3) mg/dL 12/15/22 12/15/22 12/15/22 Range/Units 06:05 06:44 06:44 RBC 4.06 L (4.30-5.90) m/uL Hgb 12.4 L (13.0-17.5) gm/dL Plt Count 141 L (150-450) k/uL Lymphocytes # (Manual) 0.32 L (1.0-4.8) k/uL Potassium 5.7 H (3.5-5.1) mmol/L BUN 89 H (9-20) mg/dL Creatinine 2.43 H (0.66-1.25) mg/dL Glucose 167 H (74-99) mg/dL POC Glucose (mg/dL) 171 H (70-110) mg/dL Calcium 7.5 L (8.4-10.2) mg/dL Magnesium 2.7 H (1.6-2.3) mg/dL Microbiology - Last 24 Hours (Table) 12/12/22 19:45 Blood Culture - Preliminary Blood 12/12/22 19:30 Blood Culture - Preliminary Blood Assessment and Plan Assessment: Generalized weakness and fatigue secondary to acute kidney injury, suspected underlying infection and cellulitis of the lower extremities Acute hypercapnic respiratory failure secondary to morbid obesity History of obstructive sleep apnea utilizing CPAP in the outpatient setting Acute kidney injury possibly related to hypotension, acute tubular necrosis, nonsteroidals Hypotension possibly related to underlying infection Acute on chronic lower extremity edema and possible cellulitis, currently on Unasyn Chronic venous stasis of the lower extremities Morbid obesity with a BMI of 45 kg per metered squared History of atrial fibrillation, anticoagulated with Eliquis Hyperlipidemia History of hypertension Diabetes mellitus Plan: The patient was seen and evaluated Labs and medications reviewed Alert and oriented today Currently on 3 L nasal cannula Utilized BiPAP at night and during the day if needed Continue antibiotics for cellulitis Currently on Unasyn We will continue to follow I have personally seen and examined the patient, performed the documentation and the assessment and plan as written. Number of minutes spent on the visit: 10.
[2022-12-15 11:54] LABS: Glucose,Whole Blood 188 mg/dL (70-110)
[2022-12-15] MEDS: AMPICILLIN-SULBACTAM 3 GM in SODIUM CHLORIDE 0.9% 100 ML IVPB SCH ×2 (11:54→20:16)
[2022-12-15] MEDS: SODIUM CHLORIDE 0.9% 1,000 ML IV SCH (11:55)
--- NOTE | 2022-12-15 11:55 | P.PN ---
Subjective Patient is seen in follow-up for acute kidney injury. Renal function improving. Has Meeks catheter for urinary retention. Blood pressure controlled. Oral intake is good. No vomiting or diarrhea. Vital signs are stable. General: No acute distress. HEENT: Head exam is unremarkable. On nasal cannula. LUNGS: No audible rhonchi or wheezes. HEART: Rate and Rhythm are regular. ABDOMEN: Obese, nontender. EXTREMITITES: Lower extremity is wrapped. 1+ edema. Objective - Vital Signs Vital signs: Vital Signs Temp 98.3 F 12/15/22 07:15 Pulse 63 12/15/22 07:15 Resp 18 12/15/22 07:15 BP 125/73 12/15/22 07:15 Pulse Ox 92 L 12/15/22 07:59 FiO2 28 12/14/22 03:50 Intake & Output 12/14/22 12/15/22 12/15/22 18:59 06:59 18:59 Intake Total 180 725 Output Total 1000 Balance 180 -275 Intake: Intake, IV Titration 725 Amount Ampicillin-Sulbactam 3 gm 200 In Sodium Chloride 0.9% 100 ml @ 200 mls/hr IVPB Q12H [facility] Rx#:[id number] Sodium Chloride 0.9% 1, 525 000 ml @ 75 mls/hr IV . [id number] [facility] Rx#:[id number] Oral 180 Output: Urine 1000 Other: Voiding Method External Catheter Indwelling Catheter Indwelling Catheter # Bowel Movements 1 1 - Labs CBC & Chem 7: 12/15/22 06:44 12/15/22 06:44 Labs: Abnormal Lab Results - Last 24 Hours (Table) 12/14/22 12/14/22 12/15/22 Range/Units 16:56 21:10 06:05 RBC (4.30-5.90) m/uL Hgb (13.0-17.5) gm/dL Plt Count (150-450) k/uL Lymphocytes # (Manual) (1.0-4.8) k/uL Potassium (3.5-5.1) mmol/L BUN (9-20) mg/dL Creatinine (0.66-1.25) mg/dL Glucose (74-99) mg/dL POC Glucose (mg/dL) 204 H 184 H 171 H (70-110) mg/dL Calcium (8.4-10.2) mg/dL Magnesium (1.6-2.3) mg/dL 12/15/22 12/15/22 Range/Units 06:44 06:44 RBC 4.06 L (4.30-5.90) m/uL Hgb 12.4 L (13.0-17.5) gm/dL Plt Count 141 L (150-450) k/uL Lymphocytes # (Manual) 0.32 L (1.0-4.8) k/uL Potassium 5.7 H (3.5-5.1) mmol/L BUN 89 H (9-20) mg/dL Creatinine 2.43 H (0.66-1.25) mg/dL Glucose 167 H (74-99) mg/dL POC Glucose (mg/dL) (70-110) mg/dL Calcium 7.5 L (8.4-10.2) mg/dL Magnesium 2.7 H (1.6-2.3) mg/dL Microbiology - Last 24 Hours (Table) 12/12/22 19:45 Blood Culture - Preliminary Blood 12/12/22 19:30 Blood Culture - Preliminary Blood Assessment and Plan Plan: Assessment: 1. Acute kidney injury secondary to ATN secondary to hypotension, nonsteroidals, Bactrim and infection. Creatinine 3.48 on admission and is 2.43 today. No hydronephrosis noted on kidney ultrasound. UA benign. 2. Right lower extremity ulceration on antibiotics. 3. Hyperkalemia secondary to acute kidney injury, acidosis, hyperglycemia. Was also on Bactrim and losartan which are currently held. Potassium 5.7 today. 4. Metabolic acidosis secondary to acute kidney injury. Resolved. Resolved. 5. Diabetes mellitus. 6. Hypotension possibly due to sepsis. Blood pressure better. 7. Urinary retention status post Meeks catheter placement. On Flomax. Plan: Maintain IV fluids. Continue to hold antihypertensives. Avoid nephrotoxins. Continue to monitor renal function and urine output. Cortisol level not low. Add Lokelma. Repeat potassium level this evening. Stop Bicarb.
[2022-12-15 13:10] LABS: T4, Free (Free Thyroxine) 1.05 ng/dL (0.78-2.19)
--- NOTE | 2022-12-15 14:37 | P.PN ---
Subjective Progress Note Date: 12/14/22 Principal diagnosis: Right lower extremity wound and cellulitis Patient is a 67-year-old male with a past medical history significant for diabetes mellitus hypertension hyperlipidemia atrial fibrillation obstructive sleep apnea presenting to the ER for evaluation of generalized weakness and fatigue patient also have increasing swelling to the lower extremity, patient did have evidence of superficial ulceration and cellulitis to the right lower extremity. On today's evaluation that is 12/14/2022, the patient denies having any fever or any chills, the patient is breathing slightly Comfortably today, patient did require BiPAP last night and this morning, patient denies having any chest pain occasional cough no abdominal pain and discomfort to the right lower extremity has decreased in intensity and no diarrhea Objective - Vital Signs Vital signs: Vital Signs Temp 98.2 F 12/14/22 06:52 Pulse 55 L 12/14/22 06:52 Resp 18 12/14/22 06:52 BP 88/55 12/14/22 06:52 Pulse Ox 96 12/14/22 06:52 FiO2 28 12/14/22 03:50 Intake & Output 12/13/22 12/14/22 12/14/22 18:59 06:59 18:59 Intake Total 1180 Output Total 600 500 Balance -600 680 Weight 154.675 kg Intake: Intake, IV Titration 600 Amount Sodium Chloride 0.9% 1, 600 000 ml @ 75 mls/hr IV . [id number] [facility] Rx#:[id number] Oral 580 Output: Urine 600 500 Straight 500 Other: Voiding Method External Catheter External Catheter # Voids 0 - Exam GENERAL DESCRIPTION: An elderly male lying in bed in no distress RESPIRATORY SYSTEM: Unlabored breathing , decreased breath sounds at bases HEART: S1 S2 regular rate and rhythm , ABDOMEN: Soft , no tenderness EXTREMITIES: Right leg is currently wrapped in Andrea wrap - Labs CBC & Chem 7: 12/15/22 06:44 12/15/22 06:44 Labs: Abnormal Lab Results - Last 24 Hours (Table) 12/13/22 12/13/22 12/13/22 Range/Units 10:25 11:22 13:30 ABG pH 7.30 L (7.35-7.45) ABG pCO2 52 H (35-45) mmHg ABG pO2 81 L (83-108) mmHg ABG Total CO2 27 H (19-24) mmol/L ABG O2 Saturation (94-97) % Sodium 132 L (137-145) mmol/L Potassium 5.6 H (3.5-5.1) mmol/L Chloride 97 L (98-107) mmol/L Carbon Dioxide 20 L (22-30) mmol/L BUN 97 H (9-20) mg/dL Creatinine 3.25 H (0.66-1.25) mg/dL Glucose 290 H (74-99) mg/dL POC Glucose (mg/dL) 279 H (70-110) mg/dL Hemoglobin A1c (0.0-6.0) % Osmolality 320 H (280-301) mosm/kg Calcium 7.5 L (8.4-10.2) mg/dL 12/13/22 12/13/22 12/13/22 Range/Units 15:33 16:17 16:18 ABG pH 7.31 L (7.35-7.45) ABG pCO2 48 H (35-45) mmHg ABG pO2 (83-108) mmHg ABG Total CO2 26 H (19-24) mmol/L ABG O2 Saturation 97.7 H (94-97) % Sodium (137-145) mmol/L Potassium (3.5-5.1) mmol/L Chloride (98-107) mmol/L Carbon Dioxide (22-30) mmol/L BUN (9-20) mg/dL Creatinine (0.66-1.25) mg/dL Glucose (74-99) mg/dL POC Glucose (mg/dL) 529 H 429 H (70-110) mg/dL Hemoglobin A1c (0.0-6.0) % Osmolality (280-301) mosm/kg Calcium (8.4-10.2) mg/dL 12/13/22 12/13/22 12/13/22 Range/Units 16:53 16:56 17:01 ABG pH (7.35-7.45) ABG pCO2 (35-45) mmHg ABG pO2 (83-108) mmHg ABG Total CO2 (19-24) mmol/L ABG O2 Saturation (94-97) % Sodium 132 L (137-145) mmol/L Potassium (3.5-5.1) mmol/L Chloride (98-107) mmol/L Carbon Dioxide (22-30) mmol/L BUN 98 H (9-20) mg/dL Creatinine 3.53 H (0.66-1.25) mg/dL Glucose 323 H (74-99) mg/dL POC Glucose (mg/dL) 562 H 384 H (70-110) mg/dL Hemoglobin A1c (0.0-6.0) % Osmolality (280-301) mosm/kg Calcium 7.1 L (8.4-10.2) mg/dL 12/13/22 12/14/22 12/14/22 Range/Units 21:19 06:14 06:51 ABG pH (7.35-7.45) ABG pCO2 (35-45) mmHg ABG pO2 (83-108) mmHg ABG Total CO2 (19-24) mmol/L ABG O2 Saturation (94-97) % Sodium (137-145) mmol/L Potassium (3.5-5.1) mmol/L Chloride (98-107) mmol/L Carbon Dioxide (22-30) mmol/L BUN (9-20) mg/dL Creatinine (0.66-1.25) mg/dL Glucose (74-99) mg/dL POC Glucose (mg/dL) 249 H 189 H (70-110) mg/dL Hemoglobin A1c 6.6 H (0.0-6.0) % Osmolality (280-301) mosm/kg Calcium (8.4-10.2) mg/dL 12/14/22 Range/Units 06:51 ABG pH (7.35-7.45) ABG pCO2 (35-45) mmHg ABG pO2 (83-108) mmHg ABG Total CO2 (19-24) mmol/L ABG O2 Saturation (94-97) % Sodium 134 L (137-145) mmol/L Potassium (3.5-5.1) mmol/L Chloride (98-107) mmol/L Carbon Dioxide (22-30) mmol/L BUN 102 H* (9-20) mg/dL Creatinine 3.03 H (0.66-1.25) mg/dL Glucose 187 H (74-99) mg/dL POC Glucose (mg/dL) (70-110) mg/dL Hemoglobin A1c (0.0-6.0) % Osmolality (280-301) mosm/kg Calcium 7.0 L (8.4-10.2) mg/dL Assessment and Plan (1) Cellulitis Current Visit: Yes Status: Acute Code(s): L03.90 - CELLULITIS, UNSPECIFIED SNOMED Code(s): 882471683 (2) 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 exposed Current Visit: Yes Status: Acute Code(s): L97.212 - NON-PRESSURE CHRONIC ULCER OF RIGHT CALF W FAT LAYER EXPOSED SNOMED Code(s): 27549642747986514 Plan: 1patient with acute right lower extremity cellulitis in this patient with diffuse swelling to bilateral lower extremities evidence of fluid overload with a superficial laceration to the right lower leg from a ruptured blister we will need to cover for the gram-positive skin deniz to be the likely pathogen. 2patient to continue with Unasyn to 3 g every 12 hours 3 wound care with a dry Aquacel silver dressing followed by Andrea wrap to keep the swelling down and marked the area of the redness Time with Patient: Less than 30
[2022-12-15] MEDS: SODIUM ZIRCONIUM CYCLOSILICATE 10 GM PACKET PO SCH (14:38)
--- NOTE | 2022-12-15 14:39 | P.PN ---
Subjective Progress Note Date: 12/15/22 Principal diagnosis: Right lower extremity wound and cellulitis Patient is a 67-year-old male with a past medical history significant for diabetes mellitus hypertension hyperlipidemia atrial fibrillation obstructive sleep apnea presenting to the ER for evaluation of generalized weakness and fatigue patient also have increasing swelling to the lower extremity, patient did have evidence of superficial ulceration and cellulitis to the right lower extremity. On today's evaluation that is 12/15/2022, the patient remains to be afebrile, the patient is breathing comfortably on 3 L nasal cannula oxygen, patient denies having any chest pain occasional cough no abdominal pain and discomfort to the right lower extremity has decreased in intensity and no diarrhea Objective - Vital Signs Vital signs: Vital Signs Temp 98.3 F 12/15/22 07:15 Pulse 63 12/15/22 07:15 Resp 18 12/15/22 07:15 BP 125/73 12/15/22 07:15 Pulse Ox 92 L 12/15/22 07:59 FiO2 28 12/14/22 03:50 Intake & Output 12/14/22 12/15/22 12/15/22 18:59 06:59 18:59 Intake Total 180 725 Output Total 1000 Balance 180 -275 Intake: Intake, IV Titration 725 Amount Ampicillin-Sulbactam 3 gm 200 In Sodium Chloride 0.9% 100 ml @ 200 mls/hr IVPB Q12H [facility] Rx#:[id number] Sodium Chloride 0.9% 1, 525 000 ml @ 75 mls/hr IV . [id number] [facility] Rx#:[id number] Oral 180 Output: Urine 1000 Other: Voiding Method External Catheter Indwelling Catheter Indwelling Catheter # Bowel Movements 1 1 - Exam GENERAL DESCRIPTION: An elderly male lying in bed in no distress RESPIRATORY SYSTEM: Unlabored breathing , decreased breath sounds at bases HEART: S1 S2 regular rate and rhythm , ABDOMEN: Soft , no tenderness EXTREMITIES: Right leg is currently wrapped in Andrea wrap, no drainage - Labs CBC & Chem 7: 12/15/22 06:44 12/15/22 06:44 Labs: Abnormal Lab Results - Last 24 Hours (Table) 12/14/22 12/14/22 12/15/22 Range/Units 16:56 21:10 06:05 RBC (4.30-5.90) m/uL Hgb (13.0-17.5) gm/dL Plt Count (150-450) k/uL Lymphocytes # (Manual) (1.0-4.8) k/uL Potassium (3.5-5.1) mmol/L BUN (9-20) mg/dL Creatinine (0.66-1.25) mg/dL Glucose (74-99) mg/dL POC Glucose (mg/dL) 204 H 184 H 171 H (70-110) mg/dL Calcium (8.4-10.2) mg/dL Magnesium (1.6-2.3) mg/dL TSH (0.465-4.680) mIU/L 12/15/22 12/15/22 12/15/22 Range/Units 06:44 06:44 11:29 RBC 4.06 L (4.30-5.90) m/uL Hgb 12.4 L (13.0-17.5) gm/dL Plt Count 141 L (150-450) k/uL Lymphocytes # (Manual) 0.32 L (1.0-4.8) k/uL Potassium 5.7 H (3.5-5.1) mmol/L BUN 89 H (9-20) mg/dL Creatinine 2.43 H (0.66-1.25) mg/dL Glucose 167 H (74-99) mg/dL POC Glucose (mg/dL) (70-110) mg/dL Calcium 7.5 L (8.4-10.2) mg/dL Magnesium 2.7 H (1.6-2.3) mg/dL TSH 0.433 L (0.465-4.680) mIU/L 12/15/22 Range/Units 11:50 RBC (4.30-5.90) m/uL Hgb (13.0-17.5) gm/dL Plt Count (150-450) k/uL Lymphocytes # (Manual) (1.0-4.8) k/uL Potassium (3.5-5.1) mmol/L BUN (9-20) mg/dL Creatinine (0.66-1.25) mg/dL Glucose (74-99) mg/dL POC Glucose (mg/dL) 188 H (70-110) mg/dL Calcium (8.4-10.2) mg/dL Magnesium (1.6-2.3) mg/dL TSH (0.465-4.680) mIU/L Microbiology - Last 24 Hours (Table) 12/12/22 19:30 Blood Culture Gram Stain - Preliminary Blood Blood Culture - Preliminary Staphylococcus epidermidis 12/12/22 19:45 Blood Culture - Preliminary Blood Assessment and Plan (1) Cellulitis Current Visit: Yes Status: Acute Code(s): L03.90 - CELLULITIS, UNSPECIFIED SNOMED Code(s): 423819643 (2) 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 exposed Current Visit: Yes Status: Acute Code(s): L97.212 - NON-PRESSURE CHRONIC ULCER OF RIGHT CALF W FAT LAYER EXPOSED SNOMED Code(s): 21230353501807229 Plan: 1patient with acute right lower extremity cellulitis in this patient with diffuse swelling to bilateral lower extremities evidence of fluid overload with a superficial laceration to the right lower leg from a ruptured blister we will need to cover for the gram-positive skin deniz to be the likely pathogen. 2patient to continue with Unasyn to 3 g every 12 hours 3 positive blood culture with staph epi more likely skin contamination though covered with Unasyn per pharmacy's note blood cultures will be repeated to document clearance of bacteremia Time with Patient: Less than 30
[2022-12-15 17:03] LABS: Glucose,Whole Blood 189 mg/dL (70-110)
[2022-12-15] MEDS: TAMSULOSIN 0.4 MG CAP.ER.24H PO SCH (17:06)
[2022-12-15 19:52] LABS: Glucose,Whole Blood 193 mg/dL (70-110)
[2022-12-15] MEDS: INSULIN DETEMIR (LEVEMIR) 100 UNIT/ML SYR SQ SCH (20:16)
[2022-12-15] MEDS: FERROUS SULFATE 325 MG TAB PO SCH (20:17)
[2022-12-15] MEDS: CHOLECALCIFEROL 25 MCG (1000 IU) TABLET PO SCH (20:17)
[2022-12-15] MEDS: traMADol 50 MG TAB PO PRN (22:13)
[2022-12-16] MEDS: SODIUM CHLORIDE 0.9% 1,000 ML IV SCH ×2 (03:07→16:06)
[2022-12-16] MEDS: AMPICILLIN-SULBACTAM 3 GM in SODIUM CHLORIDE 0.9% 100 ML IVPB SCH ×3 (03:30→19:24)
[2022-12-16 06:02] LABS: Glucose,Whole Blood 133 mg/dL (70-110)
[2022-12-16] MEDS: INSULIN ASPART (NovoLOG) 100 UNIT/ML VIAL SQ SCH ×6 (06:38→17:30)
[2022-12-16] MEDS: carvediloL 12.5 MG TAB PO SCH ×2 (07:46→21:42)
[2022-12-16] MEDS: ATORVASTATIN 10 MG TAB PO SCH (07:47)
[2022-12-16] MEDS: FLUoxetine HCL 20 MG CAP PO SCH (07:47)
[2022-12-16] MEDS: APIXABAN 5 MG TAB PO SCH ×2 (07:47→21:42)
[2022-12-16 09:13] LABS: African American GFR (CKD) 44.4 (60.0-200.0); Anion Gap 8.7 mmol/L (10.00-18.00); BUN/Creat Ratio 39.55 Ratio (12.00-20.00); Calcium 7.7 mg/dL (8.7-10.3); Carbon Dioxide 25.7 mmol/L (20.0-27.5); Magnesium 2.6 mg/dL (1.5-2.4); Non-African American GFR(CKD) 38.3 (60.0-200.0); Potassium 4.9 mmol/L (3.5-5.5)
[2022-12-16] MEDS: SODIUM ZIRCONIUM CYCLOSILICATE 10 GM PACKET PO SCH (10:09)
[2022-12-16 11:12] LABS: Glucose,Whole Blood 115 mg/dL (70-110)
--- NOTE | 2022-12-16 12:34 | P.PN ---
Subjective Patient is seen for follow-up for acute kidney injury. Renal function has been improving. Serum creatinine down to 1.8 from 3.5 at peak Patient has an indwelling Meeks catheter with 24-hour urine output at 1800 ML Maintained on IV fluids. Objective - Vital Signs Vital signs: Vital Signs Temp 97.7 F 12/16/22 08:00 Pulse 55 L 12/16/22 08:00 Resp 16 12/16/22 08:00 BP 122/70 12/16/22 08:00 Pulse Ox 94 L 12/16/22 09:24 FiO2 28 12/16/22 00:43 Intake & Output 12/15/22 12/16/22 12/16/22 18:59 06:59 18:59 Intake Total 965 Output Total 700 1100 Balance -700 -135 Intake: Intake, IV Titration 725 Amount Ampicillin-Sulbactam 3 gm 200 In Sodium Chloride 0.9% 100 ml @ 200 mls/hr IVPB Q8H [facility] Rx#:[id number] Sodium Chloride 0.9% 1, 525 000 ml @ 75 mls/hr IV . [id number] [facility] Rx#:[id number] Oral 240 Output: Urine 700 1100 Other: Voiding Method Indwelling Catheter Indwelling Catheter Indwelling Catheter # Bowel Movements 1 - Exam Awake, comfortable, no acute distress Examination of the heart S1 and S2 Examination of the lungs bilateral breath sounds are heard Abdomen is soft nontender Examination lower extremity shows bilateral extremities to be wrapped [employer] exam grossly intact - Labs CBC & Chem 7: 12/15/22 06:44 12/16/22 04:22 Labs: Abnormal Lab Results - Last 24 Hours (Table) 12/15/22 12/15/22 12/15/22 Range/Units 11:29 17:00 19:50 Anion Gap (10.00-18.00) mmol/L BUN (9.0-27.0) mg/dL Creatinine (0.6-1.5) mg/dL Est GFR (CKD-EPI)AfAm (60.0-200.0) Est GFR (CKD-EPI)NonAf (60.0-200.0) BUN/Creatinine Ratio (12.00-20.00) Ratio Glucose (70-110) mg/dL POC Glucose (mg/dL) 189 H 193 H (70-110) mg/dL Calcium (8.7-10.3) mg/dL Magnesium (1.5-2.4) mg/dL TSH 0.433 L (0.465-4.680) mIU/L 12/16/22 12/16/22 12/16/22 Range/Units 04:22 06:01 11:11 Anion Gap 8.70 L (10.00-18.00) mmol/L BUN 70.0 H (9.0-27.0) mg/dL Creatinine 1.8 H (0.6-1.5) mg/dL Est GFR (CKD-EPI)AfAm 44.4 L (60.0-200.0) Est GFR (CKD-EPI)NonAf 38.3 L (60.0-200.0) BUN/Creatinine Ratio 39.55 H (12.00-20.00) Ratio Glucose 132 H (70-110) mg/dL POC Glucose (mg/dL) 133 H 115 H (70-110) mg/dL Calcium 7.7 L (8.7-10.3) mg/dL Magnesium 2.6 H (1.5-2.4) mg/dL TSH (0.465-4.680) mIU/L Microbiology - Last 24 Hours (Table) 12/12/22 19:45 Blood Culture - Preliminary Blood 12/12/22 19:30 Blood Culture Gram Stain - Preliminary Blood Blood Culture - Preliminary Staphylococcus epidermidis Assessment and Plan Assessment: 1. Acute kidney injury secondary to ATN secondary to hypotension, nonsteroidals, Bactrim and infection. Creatinine 3.48 on admission and is 1.8 today. No hydronephrosis noted on kidney ultrasound. UA benign. 2. Right lower extremity ulceration on antibiotics. 3. Hyperkalemia secondary to acute kidney injury, acidosis, hyperglycemia. Was also on Bactrim and losartan which are currently held. Potassium 4.9 today. 4. Metabolic acidosis secondary to acute kidney injury. Resolved. Resolved. 5. Diabetes mellitus. 6. Hypotension possibly due to sepsis. Blood pressure better. 7. Urinary retention status post Meeks catheter placement. On Flomax. Plan: Continue to encourage increase oral intake DC IV fluids in a.m. Repeat labs in a.m. Continue off of Cozaar
--- NOTE | 2022-12-16 12:36 | P.PN ---
Subjective Progress Note Date: 12/16/22 This is a 67-year-old male patient with a known history of atrial fibrillation anticoagulated with Eliquis, diabetes mellitus, chronic lower extremity edema, hyperlipidemia, hypertension, morbid obesity, obstructive sleep apnea maintained on CPAP in the outpatient setting, nonsmoker. He also has chronic lower extremity edema right greater than left with redness and drainage. He presented here to the emergency room last evening with complaints of generalized weakness and fatigue. Unable to walk with distance to his car without having to sit down. EKG revealed sinus rhythm without any significant ST or T wave abnormalities. Doppler of the right lower extremity revealed no evidence of DVT. White count 9.8. Hemoglobin 13.1. Platelets 219. Sodium 132. Potassium 5.6. Bicarb 20. BUN 97. Creatinine 3.25. Blood sugar 290. ProBNP 1730. He was admitted to the regular medical floor. He's been seen by nephrology and infectious disease. He is currently on Unasyn. Today after approximately 1:15 a rapid response team was called as the patient was hypotensive, tachypneic and experiencing labored breathing. Chest x-ray revealed cardiomegaly with some patchy left basilar atelectasis. Arterial blood gases on 36% FiO2 revealed a PaO2 of 81, pCO2 of 52 and a pH of 7.30. He was placed on BiPAP 10/5 on 40% FiO2 and this consult was placed. He is currently resting in bed. He is arousa ble but still somewhat obtunded. His FiO2 was decreased to 30% and his BiPAP settings were increased to 12/6. The patient is seen today 12/14/2022 in follow-up on the regular medical floor. He is more awake and alert today compared to yesterday. Follow-up blood gases revealed a PaO2 of 99, pCO2 of 48 and a pH of 7.31. Answering questions appropriately. Currently off the BiPAP which is programmed at 12/6 and 28% and now currently on 3 L/m per nasal cannula. Denies any worsening shortness of breath, cough or congestion. Sodium 134. Potassium 4.8. Bicarb 24. BUN 102. Creatinine 3.03. Glucose 187. He remains on antibiotics in the form of Unasyn. Anticoagulated with Eliquis. Receiving sodium bicarbonate tablets and a liter of fluid per nephrology. 0.9 normal saline at 75 ML's per hour. The patient is seen today 12/15/2022 in follow-up on the regular medical floor. He is much more awake and alert. Back to his baseline. Alert and oriented 3. He denies any worsening shortness of breath, cough or congestion. Maintaining good O2 saturations in the 90s on 3 L/m per nasal cannula. He is wearing the BiPAP at night 12/620% FiO2. He remains on antibiotics in the form of Unasyn. Blood cultures revealed no growth. White count 4.6. Hemoglobin 12.4. Platelets 141. Sodium 139. Potassium 5.7. Bicarb 30. BUN 89. Creatinine 2.43. Glucose 167. He has normal saline at 75 ML's per hour. Nephrology is following. The patient is seen today 12/16/2022 in follow-up on the regular medical floor. He is currently sitting up in a chair at the bedside. Awake and alert in no acute distress. Maintaining O2 saturations in the 90s on 3 L nasal cannula. He did utilize BiPAP last night at 12/5 and 50% FiO2. Blood culture positive for Staphylococcus epidermidis. Follow-up culture pending. He remains on Unasyn. Sodium 140. Potassium 4.9. Bicarb 26. BUN 70. Creatinine 1.8. Glucose 132. Nephrology is on the case. Anticoagulated with Eliquis. 0.9 normal saline at 75 ML's per hour. Objective - Vital Signs Vital signs: Vital Signs Temp 97.7 F 12/16/22 08:00 Pulse 55 L 12/16/22 08:00 Resp 16 12/16/22 08:00 BP 122/70 12/16/22 08:00 Pulse Ox 94 L 12/16/22 09:24 FiO2 28 12/16/22 00:43 Intake & Output 12/15/22 12/16/22 12/16/22 18:59 06:59 18:59 Intake Total 965 Output Total 700 1100 Balance -700 -135 Intake: Intake, IV Titration 725 Amount Ampicillin-Sulbactam 3 gm 200 In Sodium Chloride 0.9% 100 ml @ 200 mls/hr IVPB Q8H [facility] Rx#:[id number] Sodium Chloride 0.9% 1, 525 000 ml @ 75 mls/hr IV . [id number] [facility] Rx#:[id number] Oral 240 Output: Urine 700 1100 Other: Voiding Method Indwelling Catheter Indwelling Catheter Indwelling Catheter # Bowel Movements 1 - Exam GENERAL EXAM: Awake, oriented 3, morbidly obese 67-year-old male, sitting up in a chair, on 3 L nasal cannula, comfortable in no apparent distress. HEAD: Normocephalic. EYES: Normal reaction of pupils, equal size. NOSE: Clear with pink turbinates. THROAT: No erythema or exudates. NECK: No masses, no JVD. CHEST: No chest wall deformity. LUNGS: Equal air entry with faint crackles in the left base. CVS: S1 and S2 normal with no audible murmur, regular rhythm. ABDOMEN: No hepatosplenomegaly, normal bowel sounds, no guarding or rigidity. SPINE: No scoliosis or deformity SKIN: No rashes CENTRAL NERVOUS SYSTEM: No focal deficits, tone is normal in all 4 extremities. EXTREMITIES: Andrea wraps to the bilateral lower extremities No clubbing, no cyano sis. Peripheral pulses are intact. - Labs CBC & Chem 7: 12/15/22 06:44 12/16/22 04:22 Labs: Abnormal Lab Results - Last 24 Hours (Table) 12/15/22 12/15/22 12/15/22 Range/Units 11:29 17:00 19:50 Anion Gap (10.00-18.00) mmol/L BUN (9.0-27.0) mg/dL Creatinine (0.6-1.5) mg/dL Est GFR (CKD-EPI)AfAm (60.0-200.0) Est GFR (CKD-EPI)NonAf (60.0-200.0) BUN/Creatinine Ratio (12.00-20.00) Ratio Glucose (70-110) mg/dL POC Glucose (mg/dL) 189 H 193 H (70-110) mg/dL Calcium (8.7-10.3) mg/dL Magnesium (1.5-2.4) mg/dL TSH 0.433 L (0.465-4.680) mIU/L 12/16/22 12/16/22 12/16/22 Range/Units 04:22 06:01 11:11 Anion Gap 8.70 L (10.00-18.00) mmol/L BUN 70.0 H (9.0-27.0) mg/dL Creatinine 1.8 H (0.6-1.5) mg/dL Est GFR (CKD-EPI)AfAm 44.4 L (60.0-200.0) Est GFR (CKD-EPI)NonAf 38.3 L (60.0-200.0) BUN/Creatinine Ratio 39.55 H (12.00-20.00) Ratio Glucose 132 H (70-110) mg/dL POC Glucose (mg/dL) 133 H 115 H (70-110) mg/dL Calcium 7.7 L (8.7-10.3) mg/dL Magnesium 2.6 H (1.5-2.4) mg/dL TSH (0.465-4.680) mIU/L Microbiology - Last 24 Hours (Table) 12/12/22 19:45 Blood Culture - Preliminary Blood 12/12/22 19:30 Blood Culture Gram Stain - Preliminary Blood Blood Culture - Preliminary Staphylococcus epidermidis Assessment and Plan Assessment: Generalized weakness and fatigue secondary to acute kidney injury, suspected underlying infection and cellulitis of the lower extremities Acute hypercapnic respiratory failure secondary to morbid obesity History of obstructive sleep apnea utilizing CPAP in the outpatient setting Acute kidney injury possibly related to hypotension, acute tubular necrosis, nonsteroidals Hypotension possibly related to underlying infection, improved Acute on chronic lower extremity edema and possible cellulitis, currently on Unasyn Chronic venous stasis of the lower extremities Morbid obesity with a BMI of 45 kg per metered squared History of atrial fibrillation, anticoagulated with Eliquis Hyperlipidemia History of hypertension Diabetes mellitus Plan: The patient was seen and evaluated Labs and medications reviewed Alert and oriented today Sitting up in a chair Currently on 3 L nasal cannula Utilized BiPAP at night and during the day while napping Currently on Unasyn Anticoagulated with Eliquis We will continue to follow I have personally seen and examined the patient, performed the documentation and the assessment and plan as written. Number of minutes spent on the visit: 10.
[2022-12-16] MEDS: HYDROPHILIC CREAM 180 GM TUBE TOPICAL SCH (16:06)
--- NOTE | 2022-12-16 16:27 | P.PN ---
Progress Note - Text Progress Note Date: 12/15/22 Chief Complaint: Right leg wound This is a pleasant 67-year-old patient, was chronic stable medical conditions include atrial fibrillation, diabetes mellitus type 2, hyperlipidemia, hypertension, obstructive sleep apnea, basal cell carcinoma, depression. Patient lives alone. Patient had a blister in the right leg for about a week. Blister broke down. Swelling in the right lower extremity chronically more edema in the right leg compared to left. Had some Fever and chills. Appetite is fair. No change in bowel pattern. Does use a CPAP at night. December 14: Yesterday episode of hypotension. Was given IV fluids. Also was lethargic because of not using CPAP. Rather tired. Did well with CPAP. Patient's son is visiting. Patient awake. Did eating well. IV Unasyn December 15: Up in a recliner. Pain controlled. Eating well. IV Unasyn. Wound dressing changed. Blood culture showing staph epidermidis likely contamination. Blood cultures being repeated by ID. Current medications reviewed Past medical history to include: Atrial fibrillation, diabetes mellitus, hyperlipidemia, hypertension, obstructive sleep apnea, heart murmur depression Social history: No smoking or alcohol. Lives alone Physical examination: VITAL SIGNS: 98.3, 63, 18, 125/73, 98% on 3 L GENERAL: BMI 45, up in a recliner EYES: Pupils equal. Conjunctiva normal. HEENT: External appearance of nose and ears normal, oral cavity grossly normal. NECK: JVD not raised; masses not palpable. HEART: First and second heart sounds are normal; no edema. LUNGS: Respiratory rate increased; clear to auscultation. ABDOMEN: Soft, nontender, liver spleen not palpable, no masses palpable. PSYCH: Alert and oriented x3; mood and affect a bit anxiousl. MUSCULOSKELETAL:No Clubbing/cyanosis;muscles-grossly intact EXTREMITY: Swelling of the right lower extremity greater than compared to left. Large raw area of skin breakdown on the medial aspect of the right lower leg. Some symptoms with surrounding cellulitis. Small areas of superficial wound on the right lower extremity. INVESTIGATIONS, reviewed in the clinical context: December 15: WBC 4.6 hemoglobin 12.4 sodium 141 potassium 5.7 BUN 89 crit and 2.43 Renal ultrasound: Suboptimal study. Corticomedullary differentiation maint ained. December 14: Sodium 134 potassium 4.8 BUN 102 creatinine 3.03 White count 9.18 globin 13.1 platelets 219 sodium 134 potassium 4.9 BUN 88 creatinine 3.48 EKG tracing personally reviewed by me-normal sinus rhythm. Rate 61 Doppler ultrasound right lower extremity: Negative for DVT Chest x-ray film personally reviewed by me-a bit underpenetrated Assessment and plan: -Acute cellulitis right lower extremity, associated large blister that broke down. Other small areas 2. Patient has chronic edema of the right lower extremity, right greater than left. IV Unasyn. Follow with ID -Blood cultures positive for staph epidermidis. Likely contaminant. -Acute kidney injury, ATN secondary to hypotension. Was on steroids, Bactrim, infection. Admission creatinine 3.48. Creatinine coming down -Morbid obesity BMI 45 Weight loss measures -Diabetes mellitus type 2, chronically on insulin, uncontrolled with hyperglycemia. Follow Accu-Cheks and sliding scale. Levemir 36 units daily at bedtime. Humalog 6 units with meals -Depression Prozac 20 mg -Hyperlipidemia Zocor 10 mg a day -Obstructive sleep apnea, wears CPAP at home Continue home CPAP -Essential hypertension Coreg 25 mg twice a day, Cozaar 50 mg a day -Paroxysmal atrial fibrillation, currently in sinus rhythm Coreg. Eliquis IV Unasyn. Continue current medications. Discussed with patient.
--- NOTE | 2022-12-16 16:31 | P.PN ---
Progress Note - Text Progress Note Date: 12/16/22 Chief Complaint: Right leg wound This is a pleasant 67-year-old patient, was chronic stable medical conditions include atrial fibrillation, diabetes mellitus type 2, hyperlipidemia, hypertension, obstructive sleep apnea, basal cell carcinoma, depression. Patient lives alone. Patient had a blister in the right leg for about a week. Blister broke down. Swelling in the right lower extremity chronically more edema in the right leg compared to left. Had some Fever and chills. Appetite is fair. No change in bowel pattern. Does use a CPAP at night. December 14: Yesterday episode of hypotension. Was given IV fluids. Also was lethargic because of not using CPAP. Rather tired. Did well with CPAP. Patient's son is visiting. Patient awake. Did eating well. IV Unasyn December 15: Up in a recliner. Pain controlled. Eating well. IV Unasyn. Wound dressing changed. Blood culture showing staph epidermidis likely contamination. Blood cultures being repeated by ID. December 16: Reclining in bed. Eating well. IV Unasyn. Repeat blood cultures pending. Urinary retention, Meeks catheter placed. Flomax started. We will try DC trial of Meeks in the morning. Active Medications Acetaminophen (Acetaminophen Tab 500 Mg Tab) 500 mg PO Q6HR PRN PRN Reason: Fever and/ or Pain Last Admin: 12/14/22 15:54 Dose: 500 mg Apixaban (Apixaban 5 Mg Tab) 5 mg PO BID [facility]; Protocol Last Admin: 12/16/22 07:47 Dose: 5 mg Atorvastatin Calcium (Atorvastatin 10 Mg Tab) 10 mg PO DAILY [facility] Last Admin: 12/16/22 07:47 Dose: 10 mg Carvedilol (Carvedilol 12.5 Mg Tab) 25 mg PO BID [facility] Last Admin: 12/16/22 07:46 Dose: 25 mg Cholecalciferol (Cholecalciferol 25 Mcg (1000 Iu) Tablet) 25 mcg PO [facility] Last Admin: 12/15/22 20:17 Dose: 25 mcg Dextrose/Water (Dextrose 50% Syringe 50 Ml) 25 ml IVP PER PROTOCOL PRN; Protocol PRN Reason: Hypoglycemia Dextrose/Water (Dextrose 50% Syringe 50 Ml) 50 ml IVP PER PROTOCOL PRN; Protocol PRN Reason: Hypoglycemia Ferrous Sulfate (Ferrous Sulfate 325 Mg Tab) 325 mg PO [facility] Last Admin: 12/15/22 20:17 Dose: 325 mg Fluoxetine HCl (Fluoxetine Hcl 20 Mg Cap) 20 mg PO DAILY [facility] Last Admin: 12/16/22 07:47 Dose: 20 mg Sodium Chloride (Saline 0.9%) 1,000 mls @ 75 mls/hr IV .[id number] [facility] Last Admin: 12/16/22 16:06 Dose: 75 mls/hr Ampicillin Sodium/Sulbactam (Sodium 3 gm/ Sodium Chloride) 100 mls @ 200 mls/hr IVPB Q8H [facility]; Protocol Last Admin: 12/16/22 12:08 Dose: 200 mls/hr Insulin Aspart (Insulin Aspart (Novolog) 100 Unit/Ml Vial) 0 unit SQ AC-TID [facility]; Protocol Last Admin: 12/16/22 11:23 Dose: Not Given Insulin Aspart (Insulin Aspart (Novolog) 100 Unit/Ml Vial) 6 unit SQ AC-TID [facility] Last Admin: 12/16/22 12:22 Dose: 6 unit Insulin Detemir (Insulin Detemir (Levemir) 100 Unit/Ml Syr) 36 unit SQ [facility] Last Admin: 12/15/22 20:16 Dose: 36 unit Multi-Ingred Cream/Lotion/Oil/Oint (Hydrophilic Cream 180 Gm Tube) 1 applic TOPICAL DAILY [facility]; Protocol Last Admin: 12/16/22 16:06 Dose: Not Given Naloxone HCl (Naloxone 0.4 Mg/Ml 1 Ml Vial) 0.2 mg IV Q2M PRN PRN Reason: Opioid Reversal Ondansetron HCl (Ondansetron 4 Mg/2 Ml Vial) 4 mg IVP Q8HR PRN PRN Reason: Nausea And Vomiting Sodium Zirconium Cyclosilicate (Sodium Zirconium Cyclosilicate 10 Gm Packet) 10 gm PO DAILY [facility] Stop: 12/18/22 09:01 Last Admin: 12/16/22 10:09 Dose: Not Given Tamsulosin HCl (Tamsulosin 0.4 Mg Cap.Er.24h) 0.4 mg PO PC-SUPPER [facility] Last Admin: 12/15/22 17:06 Dose: 0.4 mg Tramadol HCl (Tramadol 50 Mg Tab) 50 mg PO QID PRN PRN Reason: Pain Last Admin: 12/15/22 22:13 Dose: 50 mg Past medical history to include: Atrial fibrillation, diabetes mellitus, hyperlipidemia, hypertension, obstructive sleep apnea, heart murmur depression Social history: No smoking or alcohol. Lives alone Physical examination: VITAL SIGNS: 98.3, 63, 18, 125/73, 98% on 3 L GENERAL: BMI 45, attending in bed EYES: Pupils equal. Conjunctiva normal. HEENT: External appearance of nose and ears normal, oral cavity grossly normal. NECK: JVD not raised; masses not palpable. HEART: First and second heart sounds are normal; no edema. LUNGS: Respiratory rate increased; clear to auscultation. ABDOMEN: Soft, nontender, liver spleen not palpable, no masses palpable. PSYCH: Alert and oriented x3; mood and affect a bit anxiousl. MUSCULOSKELETAL:No Clubbing/cyanosis;muscles-grossly intact EXTREMITY: Swelling of the right lower extremity greater than compared to left. Large raw area of skin breakdown on the medial aspect of the right lower leg. Some symptoms with surrounding cellulitis. Small areas of superficial wound on the right lower extremity. INVESTIGATIONS, reviewed in the clinical context: December 16: Potassium 4.9 BUN 70 creatinine 1.8 December 15: WBC 4.6 hemoglobin 12.4 sodium 141 potassium 5.7 BUN 89 crit and 2.43 Renal ultrasound: Suboptimal study. Corticomedullary differentiation maintained. December 14: Sodium 134 potassium 4.8 BUN 102 creatinine 3.03 White count 9.18 globin 13.1 platelets 219 sodium 134 potassium 4.9 BUN 88 creatinine 3.48 EKG tracing personally reviewed by me-normal sinus rhythm. Rate 61 Doppler ultrasound right lower extremity: Negative for DVT Chest x-ray film personally reviewed by me-a bit underpenetrated Assessment and plan: -Acute cellulitis right lower extremity, associated large blister that broke down. Other small areas 2. Patient has chronic edema of the right lower extremity, right greater than left. IV Unasyn. Follow with ID -Blood cultures positive for staph epidermidis. Likely contaminant. Repeat blood culture pending -Acute kidney injury, ATN secondary to hypotension. Was on steroids, Bactrim, infection.: Improving Admission creatinine 3.48. Creatinine coming down -Morbid obesity BMI 45 Weight loss measures -Diabetes mellitus type 2, chronically on insulin, uncontrolled with hyperglyc emia. Follow Accu-Cheks and sliding scale. Levemir 36 units daily at bedtime. Humalog 6 units with meals -Depression Prozac 20 mg -Hyperlipidemia Zocor 10 mg a day -Urine outflow obstruction likely BPH Meeks catheter placed. Started Flomax. DC trial of Meeks in the morning. -Obstructive sleep apnea, wears CPAP at home Continue home CPAP -Essential hypertension Coreg 25 mg twice a day, Cozaar 50 mg a day -Paroxysmal atrial fibrillation, currently in sinus rhythm Coreg. Kraig Andrew. Follow renal function. Dressing changes.
[2022-12-16 16:50] LABS: Glucose,Whole Blood 103 mg/dL (70-110)
[2022-12-16] MEDS: TAMSULOSIN 0.4 MG CAP.ER.24H PO SCH (17:30)
[2022-12-16] MEDS: traMADol 50 MG TAB PO PRN (18:56)
[2022-12-16 20:34] LABS: Glucose,Whole Blood 137 mg/dL (70-110)
[2022-12-16] MEDS: FERROUS SULFATE 325 MG TAB PO SCH (21:42)
[2022-12-16] MEDS: CHOLECALCIFEROL 25 MCG (1000 IU) TABLET PO SCH (21:42)
[2022-12-16] MEDS: INSULIN DETEMIR (LEVEMIR) 100 UNIT/ML SYR SQ SCH (22:12)
[2022-12-17] MEDS: SODIUM CHLORIDE 0.9% 1,000 ML IV SCH (03:49)
[2022-12-17] MEDS: AMPICILLIN-SULBACTAM 3 GM in SODIUM CHLORIDE 0.9% 100 ML IVPB SCH ×3 (03:51→17:04)
[2022-12-17] MEDS: traMADol 50 MG TAB PO PRN (04:38)
[2022-12-17 05:51] LABS: Glucose,Whole Blood 109 mg/dL (70-110)
[2022-12-17] MEDS: INSULIN ASPART (NovoLOG) 100 UNIT/ML VIAL SQ SCH ×6 (06:01→17:03)
--- NOTE | 2022-12-17 07:40 | P.PN ---
Subjective Progress Note Date: 12/16/22 Principal diagnosis: Right lower extremity wound and cellulitis Patient is a 67-year-old male with a past medical history significant for diabetes mellitus hypertension hyperlipidemia atrial fibrillation obstructive sleep apnea presenting to the ER for evaluation of generalized weakness and fatigue patient also have increasing swelling to the lower extremity, patient did have evidence of superficial ulceration and cellulitis to the right lower extremity. On today's evaluation that is 12/16/2022, the patient is afebrile, the patient is breathing comfortably on 3 L nasal cannula oxygen, patient denies chest pain, did have occasional cough no abdominal pain and discomfort to the right lower extremity has decreased in intensity and no diarrhea with antibiotics Objective - Vital Signs Vital signs: Vital Signs Temp 97.7 F 12/16/22 08:00 Pulse 55 L 12/16/22 08:00 Resp 16 12/16/22 08:00 BP 122/70 12/16/22 08:00 Pulse Ox 94 L 12/16/22 09:24 FiO2 28 12/16/22 00:43 Intake & Output 12/15/22 12/16/22 12/16/22 18:59 06:59 18:59 Intake Total 965 Output Total 700 1100 Balance -700 -135 Intake: Intake, IV Titration 725 Amount Ampicillin-Sulbactam 3 gm 200 In Sodium Chloride 0.9% 100 ml @ 200 mls/hr IVPB Q8H [facility] Rx#:[id number] Sodium Chloride 0.9% 1, 525 000 ml @ 75 mls/hr IV . [id number] [facility] Rx#:[id number] Oral 240 Output: Urine 700 1100 Other: Voiding Method Indwelling Catheter Indwelling Catheter Indwelling Catheter # Bowel Movements 1 - Exam GENERAL DESCRIPTION: An elderly male lying in bed in no distress RESPIRATORY SYSTEM: Unlabored breathing , decreased breath sounds at bases HEART: S1 S2 regular rate and rhythm , ABDOMEN: Soft , no tenderness EXTREMITIES: Right leg is currently wrapped in Andrea wrap, no drainage - Labs CBC & Chem 7: 12/15/22 06:44 12/16/22 04:22 Labs: Abnormal Lab Results - Last 24 Hours (Table) 12/15/22 12/15/22 12/15/22 Range/Units 11:29 17:00 19:50 Anion Gap (10.00-18.00) mmol/L BUN (9.0-27.0) mg/dL Creatinine (0.6-1.5) mg/dL Est GFR (CKD-EPI)AfAm (60.0-200.0) Est GFR (CKD-EPI)NonAf (60.0-200.0) BUN/Creatinine Ratio (12.00-20.00) Ratio Glucose (70-110) mg/dL POC Glucose (mg/dL) 189 H 193 H (70-110) mg/dL Calcium (8.7-10.3) mg/dL Magnesium (1.5-2.4) mg/dL TSH 0.433 L (0.465-4.680) mIU/L 12/16/22 12/16/22 12/16/22 Range/Units 04:22 06:01 11:11 Anion Gap 8.70 L (10.00-18.00) mmol/L BUN 70.0 H (9.0-27.0) mg/dL Creatinine 1.8 H (0.6-1.5) mg/dL Est GFR (CKD-EPI)AfAm 44.4 L (60.0-200.0) Est GFR (CKD-EPI)NonAf 38.3 L (60.0-200.0) BUN/Creatinine Ratio 39.55 H (12.00-20.00) Ratio Glucose 132 H (70-110) mg/dL POC Glucose (mg/dL) 133 H 115 H (70-110) mg/dL Calcium 7.7 L (8.7-10.3) mg/dL Magnesium 2.6 H (1.5-2.4) mg/dL TSH (0.465-4.680) mIU/L Microbiology - Last 24 Hours (Table) 12/12/22 19:45 Blood Culture - Preliminary Blood 12/12/22 19:30 Blood Culture Gram Stain - Preliminary Blood Blood Culture - Preliminary Staphylococcus epidermidis Assessment and Plan (1) Cellulitis Current Visit: Yes Status: Acute Code(s): L03.90 - CELLULITIS, UNSPECIFIED SNOMED Code(s): 555293709 (2) 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 exposed Current Visit: Yes Status: Acute Code(s): L97.212 - NON-PRESSURE CHRONIC ULCER OF RIGHT CALF W FAT LAYER EXPOSED SNOMED Code(s): 38573216339588429 Plan: 1patient with acute right lower extremity cellulitis in this patient with diffuse swelling to bilateral lower extremities evidence of fluid overload with a superficial laceration to the right lower leg from a ruptured blister we will need to cover for the gram-positive skin deniz to be the likely pathogen. 2positive blood culture with staph epi more likely skin contamination though c overed with Unasyn , blood cultures has been repeated to document clearance of bacteremia 3-patient to continue with Unasyn to 3 g every 12 hours Time with Patient: Less than 30
[2022-12-17] MEDS: FLUoxetine HCL 20 MG CAP PO SCH (07:59)
[2022-12-17] MEDS: APIXABAN 5 MG TAB PO SCH ×2 (07:59→22:18)
[2022-12-17] MEDS: carvediloL 12.5 MG TAB PO SCH ×2 (07:59→22:18)
[2022-12-17] MEDS: ATORVASTATIN 10 MG TAB PO SCH (07:59)
[2022-12-17] MEDS: SODIUM ZIRCONIUM CYCLOSILICATE 10 GM PACKET PO SCH (08:00)
[2022-12-17] MEDS: HYDROPHILIC CREAM 180 GM TUBE TOPICAL SCH (08:00)
[2022-12-17 10:44] LABS: African American GFR (CKD) 73 (>60 ml/min/1.73 sqM); Anion Gap 4 mmol/L; Blood Urea Nitrogen 45 mg/dL (9-20); Carbon Dioxide 29 mmol/L (22-30); Chloride 108 mmol/L (98-107); Glucose 133 mg/dL (74-99); Non-African American GFR(CKD) 63 (>60 ml/min/1.73 sqM); Potassium 4.8 mmol/L (3.5-5.1); Sodium 141 mmol/L (137-145)
--- NOTE | 2022-12-17 10:46 | P.PN ---
Subjective Progress Note Date: 12/17/22 This is a 67-year-old male patient with a known history of atrial fibrillation anticoagulated with Eliquis, diabetes mellitus, chronic lower extremity edema, hyperlipidemia, hypertension, morbid obesity, obstructive sleep apnea maintained on CPAP in the outpatient setting, nonsmoker. He also has chronic lower extremity edema right greater than left with redness and drainage. He presented here to the emergency room last evening with complaints of generalized weakness and fatigue. Unable to walk with distance to his car without having to sit down. EKG revealed sinus rhythm without any significant ST or T wave abnormalities. Doppler of the right lower extremity revealed no evidence of DVT. White count 9.8. Hemoglobin 13.1. Platelets 219. Sodium 132. Potassium 5.6. Bicarb 20. BUN 97. Creatinine 3.25. Blood sugar 290. ProBNP 1730. He was admitted to the regular medical floor. He's been seen by nephrology and infectious disease. He is currently on Unasyn. Today after approximately 1:15 a rapid response team was called as the patient was hypotensive, tachypneic and experiencing labored breathing. Chest x-ray revealed cardiomegaly with some patchy left basilar atelectasis. Arterial blood gases on 36% FiO2 revealed a PaO2 of 81, pCO2 of 52 and a pH of 7.30. He was placed on BiPAP 10/5 on 40% FiO2 and this consult was placed. He is currently resting in bed. He is arousa ble but still somewhat obtunded. His FiO2 was decreased to 30% and his BiPAP settings were increased to 12/6. The patient is seen today 12/14/2022 in follow-up on the regular medical floor. He is more awake and alert today compared to yesterday. Follow-up blood gases revealed a PaO2 of 99, pCO2 of 48 and a pH of 7.31. Answering questions appropriately. Currently off the BiPAP which is programmed at 12/6 and 28% and now currently on 3 L/m per nasal cannula. Denies any worsening shortness of breath, cough or congestion. Sodium 134. Potassium 4.8. Bicarb 24. BUN 102. Creatinine 3.03. Glucose 187. He remains on antibiotics in the form of Unasyn. Anticoagulated with Eliquis. Receiving sodium bicarbonate tablets and a liter of fluid per nephrology. 0.9 normal saline at 75 ML's per hour. The patient is seen today 12/15/2022 in follow-up on the regular medical floor. He is much more awake and alert. Back to his baseline. Alert and oriented 3. He denies any worsening shortness of breath, cough or congestion. Maintaining good O2 saturations in the 90s on 3 L/m per nasal cannula. He is wearing the BiPAP at night 12/620% FiO2. He remains on antibiotics in the form of Unasyn. Blood cultures revealed no growth. White count 4.6. Hemoglobin 12.4. Platelets 141. Sodium 139. Potassium 5.7. Bicarb 30. BUN 89. Creatinine 2.43. Glucose 167. He has normal saline at 75 ML's per hour. Nephrology is following. The patient is seen today 12/16/2022 in follow-up on the regular medical floor. He is currently sitting up in a chair at the bedside. Awake and alert in no acute distress. Maintaining O2 saturations in the 90s on 3 L nasal cannula. He did utilize BiPAP last night at 12/5 and 50% FiO2. Blood culture positive for Staphylococcus epidermidis. Follow-up culture pending. He remains on Unasyn. Sodium 140. Potassium 4.9. Bicarb 26. BUN 70. Creatinine 1.8. Glucose 132. Nephrology is on the case. Anticoagulated with Eliquis. 0.9 normal saline at 75 ML's per hour. The patient is seen today 12/17/2022 in follow-up on the regular medical floor. He is currently resting comfortably in bed. Awake and alert in no acute distress. Maintaining O2 saturations in the 90s on room air. He did not wear her BiPAP last night due to epistaxis. He has normal saline at 50 mls per hour. Andrea wraps to the lower extremities. Obtained on Unasyn. Anticoagulated with Eliquis. Blood glucose 109. Objective - Vital Signs Vital signs: Vital Signs Temp 98.1 F 12/17/22 07:54 Pulse 60 12/17/22 07:54 Resp 16 12/17/22 07:54 BP 169/71 12/17/22 07:54 Pulse Ox 94 L 12/17/22 09:22 FiO2 28 12/16/22 00:43 Intake & Output 12/16/22 12/17/22 12/17/22 18:59 06:59 18:59 Intake Total 1040 Output Total 1350 1600 Balance -1350 -560 Intake: Intake, IV Titration 700 Amount Ampicillin-Sulbactam 3 gm 100 In Sodium Chloride 0.9% 100 ml @ 200 mls/hr IVPB Q8H [facility] Rx#:[id number] Sodium Chloride 0.9% 1, 600 000 ml @ 75 mls/hr IV . [id number] [facility] Rx#:[id number] Oral 340 Output: Urine 1350 1600 Uretheral (Meeks) 950 Other: Voiding Method Indwelling Catheter Indwelling Catheter # Bowel Movements 1 1 - Exam GENERAL EXAM: Awake, oriented 3, morbidly obese 67-year-old male, resting in bed, on room air, comfortable in no apparent distress. HEAD: Normocephalic. EYES: Normal reaction of pupils, equal size. NOSE: Clear with pink turbinates. THROAT: No erythema or exudates. NECK: No masses, no JVD. CHEST: No chest wall deformity. LUNGS: Equal air entry with faint crackles in the left base. CVS: S1 and S2 normal with no audible murmur, regular rhythm. ABDOMEN: No hepatosplenomegaly, normal bowel sounds, no guarding or rigidity. SPINE: No scoliosis or deformity SKIN: No rashes CENTRAL NERVOUS SYSTEM: No focal deficits, tone is normal in all 4 extremities. EXTREMITIES: Andrea wraps to the bilateral lower extremities No clubbing, no cyanosis. Peripheral pulses are intact. - Labs CBC & Chem 7: 12/15/22 06:44 12/16/22 04:22 Labs: Abnormal Lab Results - Last 24 Hours (Table) 12/16/22 12/16/22 Range/Units 11:11 20:32 POC Glucose (mg/dL) 115 H 137 H (70-110) mg/dL Microbiology - Last 24 Hours (Table) 12/12/22 19:45 Blood Culture - Preliminary Blood Assessment and Plan Assessment: Generalized weakness and fatigue secondary to acute kidney injury, suspected underlying infection and cellulitis of the lower extremities, currently on Unasyn Acute hypercapnic respiratory failure secondary to morbid obesity History of obstructive sleep apnea utilizing CPAP in the outpatient setting Acute kidney injury possibly related to hypotension, acute tubular necrosis, nonsteroidals Hypotension possibly related to underlying infection, improved Acute on chronic lower extremity edema and possible cellulitis, currently on Unasyn Chronic venous stasis of the lower extremities Morbid obesity with a BMI of 45 kg per metered squared History of atrial fibrillation, anticoagulated with Eliquis Hyperlipidemia History of hypertension Diabetes mellitus Plan: The patient was seen and evaluated Medications reviewed Alert and oriented today Stable and on room air Currently on Unasyn Anticoagulated with Eliquis We will continue to follow I have personally seen and examined the patient, performed the documentation and the assessment and plan as written. Number of minutes spent on the visit: 10.
[2022-12-17 11:06] LABS: Glucose,Whole Blood 148 mg/dL (70-110)
[2022-12-17] MEDS: LOSARTAN 50 MG TAB PO SCH (11:49)
--- NOTE | 2022-12-17 11:51 | P.PN ---
Subjective Progress Note Date: 12/17/22 Principal diagnosis: Right lower extremity wound and cellulitis Patient is a 67-year-old male with a past medical history significant for diabetes mellitus hypertension hyperlipidemia atrial fibrillation obstructive sleep apnea presenting to the ER for evaluation of generalized weakness and fatigue patient also have increasing swelling to the lower extremity, patient did have evidence of superficial ulceration and cellulitis to the right lower extremity. On today's evaluation that is 12/17/2022, the patient remains to be afebrile, the patient is breathing comfortably on room air, the patient denies chest pain, the patient did have occasional cough no abdominal pain and discomfort to the right lower extremity has decreased in intensity and no diarrhea with anti biotics Objective - Vital Signs Vital signs: Vital Signs Temp 98.1 F 12/17/22 07:54 Pulse 60 12/17/22 07:54 Resp 16 12/17/22 07:54 BP 169/71 12/17/22 07:54 Pulse Ox 94 L 12/17/22 09:22 FiO2 28 12/16/22 00:43 Intake & Output 12/16/22 12/17/22 12/17/22 18:59 06:59 18:59 Intake Total 1040 Output Total 1350 1600 325 Balance -1350 -560 -325 Intake: Intake, IV Titration 700 Amount Ampicillin-Sulbactam 3 gm 100 In Sodium Chloride 0.9% 100 ml @ 200 mls/hr IVPB Q8H [facility] Rx#:[id number] Sodium Chloride 0.9% 1, 600 000 ml @ 75 mls/hr IV . [id number] [facility] Rx#:[id number] Oral 340 Output: Urine 1350 1600 325 Uretheral (Meeks) 950 Other: Voiding Method Indwelling Catheter Indwelling Catheter # Bowel Movements 1 1 - Exam GENERAL DESCRIPTION: An elderly male lying in bed in no distress RESPIRATORY SYSTEM: Unlabored breathing , decreased breath sounds at bases HEART: S1 S2 regular rate and rhythm , ABDOMEN: Soft , no tenderness EXTREMITIES: Right leg is currently wrapped in Andrea wrap, no drainage - Labs CBC & Chem 7: 12/15/22 06:44 12/17/22 10:14 Labs: Abnormal Lab Results - Last 24 Hours (Table) 12/16/22 12/17/22 12/17/22 Range/Units 20:32 10:14 11:04 Chloride 108 H (98-107) mmol/L BUN 45 H (9-20) mg/dL Glucose 133 H (74-99) mg/dL POC Glucose (mg/dL) 137 H 148 H (70-110) mg/dL Calcium 8.0 L (8.4-10.2) mg/dL Microbiology - Last 24 Hours (Table) 12/12/22 19:45 Blood Culture - Preliminary Blood Assessment and Plan (1) Cellulitis Current Visit: Yes Status: Acute Code(s): L03.90 - CELLULITIS, UNSPECIFIED SNOMED Code(s): 466672635 (2) 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 exposed Current Visit: Yes Status: Acute Code(s): L97.212 - NON-PRESSURE CHRONIC ULCER OF RIGHT CALF W FAT LAYER EXPOSED SNOMED Code(s): 82515433513505043 Plan: 1patient with acute right lower extremity cellulitis in this patient with diffuse swelling to bilateral lower extremities evidence of fluid overload with a superficial laceration to the right lower leg from a ruptured blister we will need to cover for the gram-positive skin deniz to be the likely pathogen. 2positive blood culture with staph epi more likely skin contamination though covered with Unasyn , blood cultures has been repeated which are negative so far 3-patient has shown clinical improvement with Unasyn to 3 g every 12 hours, will finish therapy with oral Augmentin and close outpatient follow-up Time with Patient: Less than 30
--- NOTE | 2022-12-17 11:56 | P.PN ---
Subjective Patient is seen for follow-up for acute kidney injury. Renal function has been improving. Serum creatinine down to 1.17 from 3.5 at peak Patient had Meeks catheter which was removed this morning. He states he has voided. Maintained on IV fluids. Objective - Vital Signs Vital signs: Vital Signs Temp 98.1 F 12/17/22 07:54 Pulse 60 12/17/22 07:54 Resp 16 12/17/22 07:54 BP 169/71 12/17/22 07:54 Pulse Ox 94 L 12/17/22 09:22 FiO2 28 12/16/22 00:43 Intake & Output 12/16/22 12/17/22 12/17/22 18:59 06:59 18:59 Intake Total 1040 Output Total 1350 1600 325 Balance -1350 -560 -325 Intake: Intake, IV Titration 700 Amount Ampicillin-Sulbactam 3 gm 100 In Sodium Chloride 0.9% 100 ml @ 200 mls/hr IVPB Q8H [facility] Rx#:[id number] Sodium Chloride 0.9% 1, 600 000 ml @ 75 mls/hr IV . [id number] [facility] Rx#:[id number] Oral 340 Output: Urine 1350 1600 325 Uretheral (Meeks) 950 Other: Voiding Method Indwelling Catheter Indwelling Catheter # Bowel Movements 1 1 - Exam Awake, comfortable, no acute distress Examination of the heart S1 and S2 Examination of the lungs bilateral breath sounds are heard Abdomen is soft nontender Examination lower extremity shows bilateral extremities to be wrapped [employer] exam grossly intact - Labs CBC & Chem 7: 12/15/22 06:44 12/17/22 10:14 Labs: Abnormal Lab Results - Last 24 Hours (Table) 12/16/22 12/17/22 12/17/22 Range/Units 20:32 10:14 11:04 Chloride 108 H (98-107) mmol/L BUN 45 H (9-20) mg/dL Glucose 133 H (74-99) mg/dL POC Glucose (mg/dL) 137 H 148 H (70-110) mg/dL Calcium 8.0 L (8.4-10.2) mg/dL Microbiology - Last 24 Hours (Table) 12/12/22 19:45 Blood Culture - Preliminary Blood Assessment and Plan Assessment: 1. Acute kidney injury secondary to ATN secondary to hypotension, nonsteroidals, Bactrim and infection. Creatinine 3.48 on admission and is 1.17 today. No hydronephrosis noted on kidney ultrasound. UA benign. 2. Right lower extremity ulceration on antibiotics. 3. Hyperkalemia secondary to acute kidney injury, acidosis, hyperglycemia. Was also on Bactrim and losartan which are currently held. 4. Metabolic acidosis secondary to acute kidney injury. Resolved. 5. Diabetes mellitus. 6. Hypotension possibly due to sepsis. Blood pressure better. 7. Urinary retention status post Meeks catheter placement. On Flomax. Meeks catheter removed today Plan: Check post void residual DC IV fluids SASHA hernandez
--- NOTE | 2022-12-17 14:13 | P.DS ---
Providers Date of admission: 12/13/22 00:14 Expected date of discharge: 12/17/22 Attending physician: Catalino Banks Consults: 12/13/22 00:11 Consult Physician Routine Consulting Provider: Tashi Castellon Consult Reason/Comments: acute kidney injury Do you want consulting provider notified?: Yes Consult Physician Routine Consulting Provider: Ander Davila Consult Reason/Comments: cellulitis Do you want consulting provider notified?: Yes 12/13/22 14:17 Consult Physician Routine Consulting Provider: Georgia Montenegro Consult Reason/Comments: pulmonary edema Do you want consulting provider notified?: Already Contacted Primary care physician: [facility] Course: Chief Complaint: Right leg wound This is a pleasant 67-year-old patient, was chronic stable medical conditions include atrial fibrillation, diabetes mellitus type 2, hyperlipidemia, hypertension, obstructive sleep apnea, basal cell carcinoma, depression. Patient lives alone. Patient had a blister in the right leg for about a week. Blister broke down. Swelling in the right lower extremity chronically more edema in the right leg compared to left. Had some Fever and chills. Appetite is fair. No change in bowel pattern. Does use a CPAP at night. December 14: Yesterday episode of hypotension. Was given IV fluids. Also was lethargic because of not using CPAP. Rather tired. Did well with CPAP. Patient's son is visiting. Patient awake. Did eating well. IV Unasyn December 15: Up in a recliner. Pain controlled. Eating well. IV Unasyn. Wound dressing changed. Blood culture showing staph epidermidis likely contamination. Blood cultures being repeated by ID. December 16: Reclining in bed. Eating well. IV Unasyn. Repeat blood cultures pending. Urinary retention, Meeks catheter placed. Flomax started. We will try DC trial of Meeks in the morning. December 17: Doing well. On room air. Eating well. Meeks catheter discontinued this morning. Did perea on his own. Wound care DC antibiotics per Dr. Davila from ID. 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 Patient to continue using his CPAP as home settings. Discussion and discharge planning more than 35 minutes Past medical history to include: Atrial fibrillation, diabetes mellitus, hyperlipidemia, hypertension, obstructive sleep apnea, heart murmur depression Social history: No smoking or alcohol. Lives alone Physical examination: VITAL SIGNS: 98.1, 60, 16, 169/71, 91% room air. Previous blood pressures a bit lower GENERAL: Reclining in bed, comfortable EYES: Pupils equal. Conjunctiva normal. HEENT: External appearance of nose and ears normal, oral cavity grossly normal. NECK: JVD not raised; masses not palpable. HEART: First and second heart sounds are normal; no edema. LUNGS: Respiratory rate increased; clear to auscultation. ABDOMEN: Soft, nontender, liver spleen not palpable, no masses palpable. PSYCH: Alert and oriented x3; mood and affect a bit anxiousl. MUSCULOSKELETAL:No Clubbing/cyanosis;muscles-grossly intact EXTREMITY: Swelling of the right lower extremity greater than compared to left. Large raw area of skin breakdown on the medial aspect of the right lower leg. Some symptoms with surrounding cellulitis. Small areas of superficial wound on the right lower extremity. INVESTIGATIONS, reviewed in the clinical context: Weight 23rd: Potassium 4.8 BUN 45 creatinine 1.17 December 16: Potassium 4.9 BUN 70 creatinine 1.8 December 15: WBC 4.6 hemoglobin 12.4 sodium 141 potassium 5.7 BUN 89 crit and 2.43 Renal ultrasound: Suboptimal study. Corticomedullary differentiation maintained. December 14: Sodium 134 potassium 4.8 BUN 102 creatinine 3.03 White count 9.18 globin 13.1 platelets 219 sodium 134 potassium 4.9 BUN 88 creatinine 3.48 EKG tracing personally reviewed by me-normal sinus rhythm. Rate 61 Doppler ultrasound right lower extremity: Negative for DVT Chest x-ray film personally reviewed by me-a bit underpenetrated Assessment and plan: -Acute cellulitis right lower extremity, associated large blister that broke down. Other small areas 2. Patient has chronic edema of the right lower extremity, right greater than left. IV Unasyn. Follow with ID. DC on Augmentin for 10 days -Blood cultures positive for staph epidermidis. Likely contaminant. Repeat blood culture pending -Acute kidney injury, ATN secondary to hypotension. Was on steroids, Bactrim, infection.: Improving Admission creatinine 3.48. Creatinine down to 1.17 -Morbid obesity BMI 45 Weight loss measures -Diabetes mellitus type 2, chronically on insulin, uncontrolled with hy perglycemia. Follow Accu-Cheks and sliding scale. Lantus. Lispro. Bydureon -Depression Prozac 20 mg -Hyperlipidemia Lipitor 10 mg a day -Urine outflow obstruction likely BPH Flomax 0.4 mg a day -Obstructive sleep apnea, wears CPAP at home Continue home CPAP -Essential hypertension Coreg 25 mg twice a day, Cozaar 50 mg a day -Paroxysmal atrial fibrillation, currently in sinus rhythm Coreg. Eliquis Disposition: Rehab. [facility] Labs: CBC, CMP 7 days Plan - Discharge Summary New Discharge Prescriptions: New Atorvastatin [Lipitor] 10 mg PO DAILY tab Amoxic-Pot Clav 875-125Mg [Augmentin 875-125] 1 tab PO BID 10 Days #20 tab Tamsulosin [Flomax] 0.4 mg PO PC-SUPPER cap Acetaminophen Tab [Tylenol] 500 mg PO Q6HR PRN tab PRN Reason: Fever And/ Or Pain Continue Exenatide Microspheres [Bydureon Bcise Auto-Injector] 2 mg SQ NEVAREZ Insulin Lispro [humaLOG Kwikpen] See Protocol SQ TID-W/MEALS Insulin Glargine,Hum.rec.anlog [Lantus Solostar Pen] 30 units SQ HS Cholecalciferol [Vitamin D3 (25 Mcg = 1000 Iu)] 25 mcg PO HS Testosterone [Androgel 1.62% Gel Packet] 2 packet TOPICAL DAILY Discontinued Simvastatin [Zocor] 10 mg PO DAILY Sulfamethox-Tmp 800-160Mg [Bactrim DS 800-160 mg] 1 tab PO Q12HR No Action Losartan [Cozaar] 50 mg PO DAILY Apixaban [Eliquis] 5 mg PO BID Furosemide [Lasix] 20 mg PO HS FLUoxetine HCL [PROzac] 20 mg PO DAILY Nystatin 100,000Unit/gm Cream [Mycostatin Cream] 1 applic TOPICAL BID Ferrous Sulfate [Iron (65 MG Elemental)] 325 mg PO HS carvediloL [Coreg] 25 mg PO BID Discharge Medication List Losartan [Cozaar] 50 mg PO DAILY 11/14/14 [History] Apixaban [Eliquis] 5 mg PO BID 04/11/17 [History] Cholecalciferol [Vitamin D3 (25 Mcg = 1000 Iu)] 25 mcg PO HS 12/12/22 [History] Exenatide Microspheres [Bydureon Bcise Auto-Injector] 2 mg SQ NEVAREZ 12/12/22 [History] FLUoxetine HCL [PROzac] 20 mg PO DAILY 12/12/22 [History] Ferrous Sulfate [Iron (65 MG Elemental)] 325 mg PO HS 12/12/22 [History] Furosemide [Lasix] 20 mg PO HS 12/12/22 [History] Insulin Glargine,Hum.rec.anlog [Lantus Solostar Pen] 30 units SQ HS 12/12/22 [History] Insulin Lispro [humaLOG Kwikpen] See Protocol SQ TID-W/MEALS 12/12/22 [History] Nystatin 100,000Unit/gm Cream [Mycostatin Cream] 1 applic TOPICAL BID 12/12/22 [History] Testosterone [Androgel 1.62% Gel Packet] 2 packet TOPICAL DAILY 12/12/22 [History] carvediloL [Coreg] 25 mg PO BID 12/12/22 [History] Acetaminophen Tab [Tylenol] 500 mg PO Q6HR PRN tab 12/17/22 [Rx] Amoxic-Pot Clav 875-125Mg [Augmentin 875-125] 1 tab PO BID 10 Days #20 tab 12/17/22 [Rx] Atorvastatin [Lipitor] 10 mg PO DAILY tab 12/17/22 [Rx] Tamsulosin [Flomax] 0.4 mg PO PC-SUPPER cap 12/17/22 [Rx] Follow up Appointment(s)/Referral(s): Emmie Posadas DO [Primary Care Provider] - 1-2 days [facility] [NON-STAFF] - 1 Week Ander Davila MD [STAFF PHYSICIAN] - 2 Weeks Activity/Diet/Wound Care/Special Instructions: Use home CPAP at night.
--- NOTE | 2022-12-17 15:33 | P.PN ---
Progress Note - Text Progress Note Date: 12/17/22 Chief Complaint: Right leg wound This is a pleasant 67-year-old patient, was chronic stable medical conditions include atrial fibrillation, diabetes mellitus type 2, hyperlipidemia, hypertension, obstructive sleep apnea, basal cell carcinoma, depression. Patient lives alone. Patient had a blister in the right leg for about a week. Blister broke down. Swelling in the right lower extremity chronically more edema in the right leg compared to left. Had some Fever and chills. Appetite is fair. No change in bowel pattern. Does use a CPAP at night. December 14: Yesterday episode of hypotension. Was given IV fluids. Also was lethargic because of not using CPAP. Rather tired. Did well with CPAP. Patient's son is visiting. Patient awake. Did eating well. IV Unasyn December 15: Up in a recliner. Pain controlled. Eating well. IV Unasyn. Wound dressing changed. Blood culture showing staph epidermidis likely contamination. Blood cultures being repeated by ID. December 16: Reclining in bed. Eating well. IV Unasyn. Repeat blood cultures pending. Urinary retention, Meeks catheter placed. Flomax started. We will try DC trial of Meeks in the morning. December 17: Doing well. On room air. Eating well. Meeks catheter discontinued this morning. Did perea on his own. Wound care DC antibiotics per Dr. Davila from ID. 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 Patient to continue using his CPAP as home settings. Patient CPAP cannot be obtained today has patient discharged to the ECF postponed for tomorrow. Active Medications Acetaminophen (Acetaminophen Tab 500 Mg Tab) 500 mg PO Q6HR PRN PRN Reason: Fever and/ or Pain Last Admin: 12/14/22 15:54 Dose: 500 mg Apixaban (Apixaban 5 Mg Tab) 5 mg PO BID [facility]; Protocol Last Admin: 12/17/22 07:59 Dose: 5 mg Atorvastatin Calcium (Atorvastatin 10 Mg Tab) 10 mg PO DAILY [facility] Last Admin: 12/17/22 07:59 Dose: 10 mg Carvedilol (Carvedilol 12.5 Mg Tab) 25 mg PO BID [facility] Last Admin: 12/17/22 07:59 Dose: 25 mg Cholecalciferol (Cholecalciferol 25 Mcg (1000 Iu) Tablet) 25 mcg PO HS [facility] Last Admin: 12/16/22 21:42 Dose: 25 mcg Dextrose/Water (Dextrose 50% Syringe 50 Ml) 25 ml IVP PER PROTOCOL PRN; Protocol PRN Reason: Hypoglycemia Dextrose/Water (Dextrose 50% Syringe 50 Ml) 50 ml IVP PER PROTOCOL PRN; Protocol PRN Reason: Hypoglycemia Ferrous Sulfate (Ferrous Sulfate 325 Mg Tab) 325 mg PO HS [facility] Last Admin: 12/16/22 21:42 Dose: 325 mg Fluoxetine HCl (Fluoxetine Hcl 20 Mg Cap) 20 mg PO DAILY [facility] Last Admin: 12/17/22 07:59 Dose: 20 mg Ampicillin Sodium/Sulbactam (Sodium 3 gm/ Sodium Chloride) 100 mls @ 200 mls/hr IVPB Q6HR [facility]; Protocol Last Admin: 12/17/22 11:49 Dose: 200 mls/hr Insulin Aspart (Insulin Aspart (Novolog) 100 Unit/Ml Vial) 0 unit SQ AC-TID [facility]; Protocol Last Admin: 12/17/22 11:45 Dose: Not Given Insulin Aspart (Insulin Aspart (Novolog) 100 Unit/Ml Vial) 6 unit SQ AC-TID [facility] Last Admin: 12/17/22 11:46 Dose: Not Given Insulin Detemir (Insulin Detemir (Levemir) 100 Unit/Ml Syr) 36 unit SQ HS [facility] Last Admin: 12/16/22 22:12 Dose: 36 unit Losartan Potassium (Losartan 50 Mg Tab) 50 mg PO DAILY [facility] Last Admin: 12/17/22 11:49 Dose: 50 mg Multi-Ingred Cream/Lotion/Oil/Oint (Hydrophilic Cream 180 Gm Tube) 1 applic TOPICAL DAILY [facility]; Protocol Last Admin: 12/17/22 08:00 Dose: 1 applic Naloxone HCl (Naloxone 0.4 Mg/Ml 1 Ml Vial) 0.2 mg IV Q2M PRN PRN Reason: Opioid Reversal Ondansetron HCl (Ondansetron 4 Mg/2 Ml Vial) 4 mg IVP Q8HR PRN PRN Reason: Nausea And Vomiting Tamsulosin HCl (Tamsulosin 0.4 Mg Cap.Er.24h) 0.4 mg PO PC-SUPPER [facility] Last Admin: 12/16/22 17:30 Dose: 0.4 mg Tramadol HCl (Tramadol 50 Mg Tab) 50 mg PO QID PRN PRN Reason: Pain Last Admin: 12/17/22 04:38 Dose: 50 mg Past medical history to include: Atrial fibrillation, diabetes mellitus, hyperlipidemia, hypertension, obstructive sleep apnea, heart murmur depression Social history: No smoking or alcohol. Lives alone Physical examination: VITAL SIGNS: 98.1, 60, 16, 169/71, 91% room air. Previous blood pressures a bit lower GENERAL: Reclining in bed, comfortable EYES: Pupils equal. Conjunctiva normal. HEENT: External appearance of nose and ears normal, oral cavity grossly normal. NECK: JVD not raised; masses not palpable. HEART: First and second heart sounds are normal; no edema. LUNGS: Respiratory rate increased; clear to auscultation. ABDOMEN: Soft, nontender, liver spleen not palpable, no masses palpable. PSYCH: Alert and oriented x3; mood and affect a bit anxiousl. MUSCULOSKELETAL:No Clubbing/cyanosis;muscles-grossly intact EXTREMITY: Swelling of the right lower extremity greater than compared to left. Large raw area of skin breakdown on the medial aspect of the right lower leg. Some symptoms with surrounding cellulitis. Small areas of superficial wound on the right lower extremity. INVESTIGATIONS, reviewed in the clinical context: Weight 23rd: Potassium 4.8 BUN 45 creatinine 1.17 December 16: Potassium 4.9 BUN 70 creatinine 1.8 December 15: WBC 4.6 hemoglobin 12.4 sodium 141 potassium 5.7 BUN 89 crit and 2.43 Renal ultrasound: Suboptimal study. Corticomedullary differentiation maintained. December 14: Sodium 134 potassium 4.8 BUN 102 creatinine 3.03 White count 9.18 globin 13.1 platelets 219 sodium 134 potassium 4.9 BUN 88 creatinine 3.48 EKG tracing personally reviewed by me-normal sinus rhythm. Rate 61 Doppler ultrasound right lower extremity: Negative for DVT Chest x-ray film personally reviewed by me-a bit underpenetrated Assessment and plan: -Acute cellulitis right lower extremity, associated large blister that broke down. Other small areas 2. Patient has chronic edema of the right lower extremity, right greater than left. IV Unasyn. Follow with ID. DC on Augmentin for 10 days -Blood cultures positive for staph epidermidis. Likely contaminant. Repeat blood culture pending -Acute kidney injury, ATN secondary to hypotension. Was on steroids, Bactrim, infection.: Improving Admission creatinine 3.48. Creatinine down to 1.17 -Morbid obesity BMI 45 Weight loss measures -Diabetes mellitus type 2, chronically on insulin, uncontrolled with hyperglycemia. Follow Accu-Cheks and sliding scale. Lantus. Lispro. Bydureon -Depression Prozac 20 mg -Hyperlipidemia Lipitor 10 mg a day -Urine outflow obstruction likely BPH Flomax 0.4 mg a day -Obstructive sleep apnea, wears CPAP at home Continue home CPAP -Essential hypertension Coreg 25 mg twice a day, Cozaar 50 mg a day -Paroxysmal atrial fibrillation, currently in sinus rhythm CoregGage Cornell Patient CPAP cannot be obtained today has discharged to ECF postponed till tomorrow.
[2022-12-17 16:48] LABS: Glucose,Whole Blood 140 mg/dL (70-110)
[2022-12-17] MEDS: TAMSULOSIN 0.4 MG CAP.ER.24H PO SCH (17:04)
[2022-12-17 21:22] LABS: Glucose,Whole Blood 128 mg/dL (70-110)
[2022-12-17] MEDS: INSULIN DETEMIR (LEVEMIR) 100 UNIT/ML SYR SQ SCH (22:18)
[2022-12-17] MEDS: CHOLECALCIFEROL 25 MCG (1000 IU) TABLET PO SCH (22:19)
[2022-12-17] MEDS: FERROUS SULFATE 325 MG TAB PO SCH (22:19)
[2022-12-18] MEDS: AMPICILLIN-SULBACTAM 3 GM in SODIUM CHLORIDE 0.9% 100 ML IVPB SCH ×3 (00:56→13:54)
[2022-12-18 06:15] LABS: Glucose,Whole Blood 82 mg/dL (70-110)
[2022-12-18] MEDS: INSULIN ASPART (NovoLOG) 100 UNIT/ML VIAL SQ SCH ×4 (06:35→13:50)
[2022-12-18] MEDS: APIXABAN 5 MG TAB PO SCH (08:23)
[2022-12-18] MEDS: carvediloL 12.5 MG TAB PO SCH (08:23)
[2022-12-18] MEDS: ATORVASTATIN 10 MG TAB PO SCH (08:23)
[2022-12-18] MEDS: FLUoxetine HCL 20 MG CAP PO SCH (08:23)
[2022-12-18] MEDS: LOSARTAN 50 MG TAB PO SCH (08:23)
[2022-12-18] MEDS: traMADol 50 MG TAB PO PRN (08:33)
[2022-12-18] MEDS ORDERED: FUROSEMIDE 10 MG/ML 4 ML VIAL IV STA (10:02)
[2022-12-18] MEDS: HYDROPHILIC CREAM 180 GM TUBE TOPICAL SCH (10:32)
--- NOTE | 2022-12-18 10:42 | P.DS ---
Providers Date of admission: 12/13/22 00:14 Expected date of discharge: 12/18/22 Attending physician: Catalino Banks Consults: 12/13/22 00:11 Consult Physician Routine Consulting Provider: Tashi Castellon Consult Reason/Comments: acute kidney injury Do you want consulting provider notified?: Yes Consult Physician Routine Consulting Provider: Ander Davila Consult Reason/Comments: cellulitis Do you want consulting provider notified?: Yes 12/13/22 14:17 Consult Physician Routine Consulting Provider: Georgia Monten[place]ro Consult Reason/Comments: pulmonary edema Do you want consulting provider notified?: Already Contacted Primary care physician: Emmie B [facility] Course: Chief Complaint: Right leg wound This is a pleasant 67-year-old patient, was chronic stable medical conditions include atrial fibrillation, diabetes mellitus type 2, hyperlipidemia, hypertension, obstructive sleep apnea, basal cell carcinoma, depression. Patient lives alone. Patient had a blister in the right leg for about a week. Blister broke down. Swelling in the right lower extremity chronically more edema in the right leg compared to left. Had some Fever and chills. Appetite is fair. No change in bowel pattern. Does use a CPAP at night. December 14: Yesterday episode of hypotension. Was given IV fluids. Also was lethargic because of not using CPAP. Rather tired. Did well with CPAP. Patient's son is visiting. Patient awake. Did eating well. IV Unasyn December 15: Up in a recliner. Pain controlled. Eating well. IV Unasyn. Wound dressing changed. Blood culture showing staph epidermidis likely contamination. Blood cultures being repeated by ID. December 16: Reclining in bed. Eating well. IV Unasyn. Repeat blood cultures pending. Urinary retention, Meeks catheter placed. Flomax started. We will try DC trial of Meeks in the morning. December 17: Doing well. On room air. Eating well. Meeks catheter discontinued this morning. Did perea on his own. Wound care DC antibiotics per Dr. Davila from ID. 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 Patient to continue using his CPAP as home settings. December 18: Sitting up in chair. Breathing stable. Awaiting CPAP and even before can be discharged. Eating fair. Past medical history to include: Atrial fibrillation, diabetes mellitus, hyperlipidemia, hypertension, obstructive sleep apnea, heart murmur depression Social history: No smoking or alcohol. Lives alone Physical examination: VITAL SIGNS: 97.6, 54, 20, 154/84, 97% room air GENERAL: Up in a chair comfortable EYES: Pupils equal. Conjunctiva normal. HEENT: External appearance of nose and ears normal, oral cavity grossly normal. NECK: JVD not raised; masses not palpable. HEART: First and second heart sounds are normal; no edema. LUNGS: Respiratory rate increased; clear to auscultation. ABDOMEN: Soft, nontender, liver spleen not palpable, no masses palpable. PSYCH: Alert and oriented x3; mood and affect a bit anxiousl. MUSCULOSKELETAL:No Clubbing/cyanosis;muscles-grossly intact EXTREMITY: Swelling of the right lower extremity greater than compared to left. Large raw area of skin breakdown on the medial aspect of the right lower leg. Some symptoms with surrounding cellulitis. Small areas of superficial wound on the right lower extremity. INVESTIGATIONS, reviewed in the clinical context: December 17: Potassium 4.8 BUN 45 creatinine 1.17 December 16: Potassium 4.9 BUN 70 creatinine 1.8 December 15: WBC 4.6 hemoglobin 12.4 sodium 141 potassium 5.7 BUN 89 crit and 2.43 Renal ultrasound: Suboptimal study. Corticomedullary differentiation maintained. December 14: Sodium 134 potassium 4.8 BUN 102 creatinine 3.03 White count 9.18 globin 13.1 platelets 219 sodium 134 potassium 4.9 BUN 88 creatinine 3.48 EKG tracing personally reviewed by me-normal sinus rhythm. Rate 61 Doppler ultrasound right lower extremity: Negative for DVT Chest x-ray film personally reviewed by me-a bit underpenetrated Assessment and plan: -Acute cellulitis right lower extremity, associated large blister that broke down. Other small areas 2. Patient has chronic edema of the right lower extremity, right greater than left. IV Unasyn. Follow with ID. DC on Augmentin for 10 days -Blood cultures positive for staph epidermidis. Likely contaminant. -Acute kidney injury, ATN secondary to hypotension. Was on steroids, Bactrim, infection.: Improving Admission creatinine 3.48. Creatinine down to 1.17 -Morbid obesity BMI 45 Weight loss measures -Diabetes mellitus type 2, chronically on insulin, uncontrolled with hyperglycemia. Follow Accu-Cheks and sliding scale. Lantus. Lispro. Bydureon -Depression Prozac 20 mg -Hyperlipidemia Lipitor 10 mg a day -Urine outflow obstruction likely BPH Flomax 0.4 mg a day -Obstructive sleep apnea, wears CPAP at home Continue home CPAP -Essential hypertension Coreg 25 mg twice a day, Cozaar 50 mg a day -Paroxysmal atrial fibrillation, currently in sinus rhythm Coreg. Eliquis Disposition: Rehab. [facility] Labs: CBC, CMP 7 days Plan - Discharge Summary New Discharge Prescriptions: New Atorvastatin [Lipitor] 10 mg PO DAILY tab Amoxic-Pot Clav 875-125Mg [Augmentin 875-125] 1 tab PO BID 10 Days #20 tab Tamsulosin [Flomax] 0.4 mg PO PC-SUPPER cap Acetaminophen Tab [Tylenol] 500 mg PO Q6HR PRN tab PRN Reason: Fever And/ Or Pain Continue Apixaban [Eliquis] 5 mg PO BID FLUoxetine HCL [PROzac] 20 mg PO DAILY Nystatin 100,000Unit/gm Cream [Mycostatin Cream] 1 applic TOPICAL BID Exenatide Microspheres [Bydureon Bcise Auto-Injector] 2 mg SQ NEVAREZ Insulin Lispro [humaLOG Kwikpen] See Protocol SQ TID-W/MEALS Insulin Glargine,Hum.rec.anlog [Lantus Solostar Pen] 30 units SQ HS Ferrous Sulfate [Iron (65 MG Elemental)] 325 mg PO HS Cholecalciferol [Vitamin D3 (25 Mcg = 1000 Iu)] 25 mcg PO HS carvediloL [Coreg] 25 mg PO BID Testosterone [Androgel 1.62% Gel Packet] 2 packet TOPICAL DAILY Changed Losartan [Cozaar] 25 mg PO DAILY #0 Discontinued Simvastatin [Zocor] 10 mg PO DAILY Furosemide [Lasix] 20 mg PO HS Sulfamethox-Tmp 800-160Mg [Bactrim DS 800-160 mg] 1 tab PO Q12HR Discharge Medication List Apixaban [Eliquis] 5 mg PO BID 04/11/17 [History] Cholecalciferol [Vitamin D3 (25 Mcg = 1000 Iu)] 25 mcg PO HS 12/12/22 [History] Exenatide Microspheres [Bydureon Bcise Auto-Injector] 2 mg SQ NEVAREZ 12/12/22 [History] FLUoxetine HCL [PROzac] 20 mg PO DAILY 12/12/22 [History] Ferrous Sulfate [Iron (65 MG Elemental)] 325 mg PO HS 12/12/22 [History] Insulin Glargine,Hum.rec.anlog [Lantus Solostar Pen] 30 units SQ HS 12/12/22 [History] Insulin Lispro [humaLOG Kwikpen] See Protocol SQ TID-W/MEALS 12/12/22 [History] Nystatin 100,000Unit/gm Cream [Mycostatin Cream] 1 applic TOPICAL BID 12/12/22 [History] Testosterone [Androgel 1.62% Gel Packet] 2 packet TOPICAL DAILY 12/12/22 [History] carvediloL [Coreg] 25 mg PO BID 12/12/22 [History] Acetaminophen Tab [Tylenol] 500 mg PO Q6HR PRN tab 12/17/22 [Rx] Amoxic-Pot Clav 875-125Mg [Augmentin 875-125] 1 tab PO BID 10 Days #20 tab 12/17/22 [Rx] Atorvastatin [Lipitor] 10 mg PO DAILY tab 12/17/22 [Rx] Losartan [Cozaar] 25 mg PO DAILY #0 12/17/22 [Rx] Tamsulosin [Flomax] 0.4 mg PO PC-SUPPER cap 12/17/22 [Rx] Follow up Appointment(s)/Referral(s): Emmie Posadas DO [Primary Care Provider] - 1-2 days [facility] [NON-STAFF] - 1 Week Ander Davila MD [STAFF PHYSICIAN] - 2 Weeks Activity/Diet/Wound Care/Special Instructions: Use home CPAP at night. With the same settings
--- NOTE | 2022-12-18 10:48 | P.PN ---
Subjective Patient is seen for follow-up for acute kidney injury. Renal function has been improving. Serum creatinine down to 1.17 from 3.5 at peak Meeks catheter discontinued. Post void residual residual being monitored. Complaining of mild shortness of breath today Objective - Vital Signs Vital signs: Vital Signs Temp 97.6 F 12/18/22 07:04 Pulse 54 L 12/18/22 07:04 Resp 20 12/18/22 07:04 BP 154/84 12/18/22 07:04 Pulse Ox 97 12/18/22 07:04 FiO2 28 12/16/22 00:43 Intake & Output 12/17/22 12/18/22 12/18/22 18:59 06:59 18:59 Output Total 325 Balance -325 Output: Urine 325 Other: # Voids 2 - Exam Awake, comfortable, no acute distress Examination of the heart S1 and S2 Examination of the lungs bilateral breath sounds are heard, decreased breath sounds at the bases Abdomen is soft nontender Examination lower extremity shows bilateral extremities to be wrapped [employer] exam grossly intact - Labs CBC & Chem 7: 12/15/22 06:44 12/17/22 10:14 Labs: Abnormal Lab Results - Last 24 Hours (Table) 12/17/22 12/17/22 12/17/22 Range/Units 11:04 16:46 20:58 POC Glucose (mg/dL) 148 H 140 H 128 H (70-110) mg/dL Microbiology - Last 24 Hours (Table) 12/12/22 19:45 Blood Culture - Final Blood 12/16/22 04:22 Blood Culture - Preliminary Blood 12/12/22 19:30 Blood Culture Gram Stain - Final Blood Blood Culture - Final Staphylococcus epidermidis Assessment and Plan Assessment: 1. Acute kidney injury secondary to ATN secondary to hypotension, nonsteroidals, Bactrim and infection. Creatinine 3.48 on admission and is 1.17. No hydronephrosis noted on kidney ultrasound. UA benign. 2. Right lower extremity ulceration on antibiotics. 3. Hyperkalemia secondary to acute kidney injury, acidosis, hyperglycemia. Was also on Bactrim and losartan which are currently held. 4. Metabolic acidosis secondary to acute kidney injury. Resolved. 5. Diabetes mellitus. 6. Hypotension possibly due to sepsis. Blood pressure better. 7. Urinary retention status post Meeks catheter placement. On Flomax. Meeks catheter removed post void residual being monitored Plan: Monitor post void residual IV Lasix 1 Continue off of IV fluids
--- NOTE | 2022-12-18 11:00 | CDI ---
Documentation Clarification Form Date: 12/18/2022 10:11:00 AM From: Nicolle Pugh RN, CCDS Admit Date: 12/13/2022 12:14:00 AM Patient Name: Lex Maldonado Visit Number: [id number] Discharge Date: ATTENTION: The Clinical Documentation Specialists (CDI) and [facility] Coding Staff appreciate your assistance in clarifying documentation. Please respond to the clarification below the line at the bottom and electronically sign. The CDI & [facility] Coding staff will review the response and follow-up if needed. Please note: Queries are made part of the Legal Health Record. If you have any questions, please contact the author of this message via ITS. Dr. Catalino Banks The patient has hypotension possible due to sepsis documentation in the ongoing Nephrology progress notes starting on 12/14/2022. As the attending physician based on this information and the findings below, is there an additional diagnosis that is clinically appropriate for this patient? 12/15 ID: acute right lower extremity cellulitis in this patient with diffuse swelling to bilateral lower extremities evidence of fluid overload with a superficial laceration to the right lower leg from a ruptured. Positive blood culture with staph epi more likely skin contamination though covered with Unasyn. History/Risk Factors: Atrial Fibrillation, Hypertension Diabetes Mellitus, Hyperlipidemia, Basal cell ca Clinical Indicators: 67-year-old male present with weakness and fatigue. He has edema to right leg with venous stasis ulcer with drainage. There is erythema and warmth. 12/12 VS 97/60 16 99.1 99% RA 12/12 WBC 9, 8 Na 134 BUN 88 Cr 3.48 BNP 1730 Troponin I 0.029 Lactic acid 1.4 12/13 (13:13) 82/54 66 18 95 % 4/L NC 12/12 Blood cultures: Staphylococcus epidemidis 12/16 Blood culture-Preliminary Pending Treatment: Unasyn 3 GM IVPB Q 8 HRS 12/13-12/17 per ID orders Rocephin2 GM IVPB Once 12/12 Wound care with a dry Aquacel silver dressing followed by Andrea wrap Is there an additional diagnosis that is clinically appropriate for this patient? [ ] Sepsis, present on admission [ + ] Sepsis ruled out [ ] Other, please specify [ ] Unable to determine SIRS Criteria: 2 or more of the following may indicate SIRS Temperature < 96.8F (36C) or > 101.0F (38.3C) Heart Rate > 90 bpm Respiratory Rate > 20 breaths/min or PaCO2 < 32 mmHg White Blood Cell Count > 12,000 or < 4,000 cells/mm3 or > 10% bands (Template Last Reviewed: July 2022) MTDD
--- NOTE | 2022-12-18 11:36 | P.PN ---
Subjective Progress Note Date: 12/18/22 Principal diagnosis: Cellulitis. The patient is seen today 12/14/2022 in follow-up on the regular medical floor. He is more awake and alert today compared to yesterday. Follow-up blood gases revealed a PaO2 of 99, pCO2 of 48 and a pH of 7.31. Answering questions appropriately. Currently off the BiPAP which is programmed at 12/6 and 28% and now currently on 3 L/m per nasal cannula. Denies any worsening shortness of breath, cough or congestion. Sodium 134. Potassium 4.8. Bicarb 24. BUN 102. Creatinine 3.03. Glucose 187. He remains on antibiotics in the form of Unasyn. Anticoagulated with Eliquis. Receiving sodium bicarbonate tablets and a liter of fluid per nephrology. 0.9 normal saline at 75 ML's per hour. The patient is seen today 12/15/2022 in follow-up on the regular medical floor. He is much more awake and alert. Back to his baseline. Alert and oriented 3. He denies any worsening shortness of breath, cough or congestion. Maintaining good O2 saturations in the 90s on 3 L/m per nasal cannula. He is wearing the BiPAP at night 12/620% FiO2. He remains on antibiotics in the form of Unasyn. Blood cultures revealed no growth. White count 4.6. Hemoglobin 12.4. Platelets 141. Sodium 139. Potassium 5.7. Bicarb 30. BUN 89. Creatinine 2. 43. Glucose 167. He has normal saline at 75 ML's per hour. Nephrology is following. The patient is seen today 12/16/2022 in follow-up on the regular medical floor. He is currently sitting up in a chair at the bedside. Awake and alert in no acute distress. Maintaining O2 saturations in the 90s on 3 L nasal cannula. He did utilize BiPAP last night at 12/5 and 50% FiO2. Blood culture positive for Staphylococcus epidermidis. Follow-up culture pending. He remains on Unasyn. Sodium 140. Potassium 4.9. Bicarb 26. BUN 70. Creatinine 1.8. Glucose 132. Nephrology is on the case. Anticoagulated with Eliquis. 0.9 normal saline at 75 ML's per hour. The patient is seen today 12/17/2022 in follow-up on the regular medical floor. He is currently resting comfortably in bed. Awake and alert in no acute distress. Maintaining O2 saturations in the 90s on room air. He did not wear her BiPAP last night due to epistaxis. He has normal saline at 50 mls per hour. Andrea wraps to the lower extremities. Obtained on Unasyn. Anticoagulated with Eliquis. Blood glucose 109. Progress note dated 12/18/2022. The patient is seen today in room 462. He sitting in a chair, resting comforta adrián. The patient is currently not receiving any oxygen therapy, or IV fluids. He does continue on Unasyn. His lower extremities are wrapped in Andrea bandages. No new laboratory data today other than a glucose of 82. He denies any shortness of breath, difficulty breathing, coughing, wheezing, or phlegm production. He also denies any chest pain or chest discomfort. Objective - Vital Signs Vital signs: Vital Signs Temp 97.6 F 12/18/22 07:04 Pulse 54 L 12/18/22 07:04 Resp 20 12/18/22 07:04 BP 154/84 12/18/22 07:04 Pulse Ox 97 12/18/22 07:04 FiO2 28 12/16/22 00:43 Intake & Output 12/17/22 12/18/22 12/18/22 18:59 06:59 18:59 Output Total 325 Balance -325 Output: Urine 325 Other: # Voids 2 - Exam No acute distress, oriented 3. Currently on room air. No respiratory difficulty. HEENT examination is grossly unremarkable. Mucous membranes are moist. No oral lesions. Neck supple. Full range of motion. No adenopathy thyromegaly or neck vein distention. Cardiovascular examination reveals regular rhythm rate. S1-S2 normal. No S3 or S4. A 2/6 systolic murmur consistent with aortic stenosis is noted. Heart rate 54 bpm. Heart sounds are distant. Lungs reveal clear breath sounds. Breath sounds are equal bilaterally. No adventitious lung sounds including wheezes rhonchi or crackles. Room air saturation is 97%. Abdomen is obese. Bowel sounds are noted. Extremities are intact. Lower extremity edema is noted. The legs are wrapped. No cyanosis or clubbing. Skin is without rash or lesion. Neurologic examination is brief but nonfocal. - Labs CBC & Chem 7: 12/15/22 06:44 12/17/22 10:14 Labs: Abnormal Lab Results - Last 24 Hours (Table) 12/17/22 12/17/22 Range/Units 16:46 20:58 POC Glucose (mg/dL) 140 H 128 H (70-110) mg/dL Microbiology - Last 24 Hours (Table) 12/12/22 19:45 Blood Culture - Final Blood 12/16/22 04:22 Blood Culture - Preliminary Blood 12/12/22 19:30 Blood Culture Gram Stain - Final Blood Blood Culture - Final Staphylococcus epidermidis Assessment and Plan Assessment: Generalized weakness and fatigue secondary to acute kidney injury, suspected underlying infection and cellulitis of the lower extremities, currently on Unasyn. Acute hypercapnic respiratory failure secondary to morbid obesity. History of obstructive sleep apnea utilizing CPAP in the outpatient setting. Acute kidney injury possibly related to hypotension, acute tubular necrosis, non steroidals. Hypotension possibly related to underlying infection, improved. Acute on chronic lower extremity edema and possible cellulitis, currently on Unasyn. Chronic venous stasis of the lower extremities. Morbid obesity with a BMI of 45 kg per metered squared. History of atrial fibrillation, anticoagulated with Eliquis. Hyperlipidemia. History of hypertension. Diabetes mellitus. Plan: Plan dated 12/18/2022. The patient appears to be doing relatively well. He is not requiring any supplemental oxygen. No IV fluids. His room air saturation is 97%. The patient continues on Unasyn. From the pulmonary perspective, the patient could be considered for possible discharge. Labs, x-rays, medications are reviewed. The patient is anticoagulated with Eliquis. No additional recommendations are necessary at this time. Time with Patient: Less than 30
[2022-12-18 11:42] LABS: Glucose,Whole Blood 68 mg/dL (70-110)
[2022-12-18 12:07] LABS: Glucose,Whole Blood 79 mg/dL (70-110)
[2022-12-18 13:53] LABS: Glucose,Whole Blood 106 mg/dL (70-110)
[2022-12-18 13:56] VITALS: BP 174/76; PULSE 46; RESP 18; TEMP 98.1
--- NOTE | 2022-12-20 15:31 | P.PN ---
Subjective Progress Note Date: 12/18/22 Principal diagnosis: Right lower extremity wound and cellulitis Patient is a 67-year-old male with a past medical history significant for diabetes mellitus hypertension hyperlipidemia atrial fibrillation obstructive sleep apnea presenting to the ER for evaluation of generalized weakness and fatigue patient also have increasing swelling to the lower extremity, patient did have evidence of superficial ulceration and cellulitis to the right lower extremity. On today's evaluation that is 12/18/2022, the patient continues to be afebrile, the patient is breathing comfortably on room air, the patient denies chest pain, the patient did have occasional cough no abdominal pain the patient denies pain to the right lower extremity and no diarrhea with antibiotics Objective - Vital Signs Vital signs: Vital Signs Temp 97.6 F 12/18/22 07:04 Pulse 54 L 12/18/22 07:04 Resp 20 12/18/22 07:04 BP 154/84 12/18/22 07:04 Pulse Ox 97 12/18/22 07:04 FiO2 28 12/16/22 00:43 Intake & Output 12/17/22 12/18/22 12/18/22 18:59 06:59 18:59 Output Total 325 Balance -325 Output: Urine 325 Other: # Voids 2 - Exam GENERAL DESCRIPTION: An elderly male lying in bed in no distress RESPIRATORY SYSTEM: Unlabored breathing , decreased breath sounds at bases HEART: S1 S2 regular rate and rhythm , ABDOMEN: Soft , no tenderness EXTREMITIES: Right leg is currently wrapped in Andrea wrap, no drainage - Labs CBC & Chem 7: 12/15/22 06:44 12/17/22 10:14 Labs: Abnormal Lab Results - Last 24 Hours (Table) 12/17/22 12/17/22 12/18/22 Range/Units 16:46 20:58 11:40 POC Glucose (mg/dL) 140 H 128 H 68 L (70-110) mg/dL Microbiology - Last 24 Hours (Table) 12/12/22 19:45 Blood Culture - Final Blood 12/16/22 04:22 Blood Culture - Preliminary Blood 12/12/22 19:30 Blood Culture Gram Stain - Final Blood Blood Culture - Final Staphylococcus epidermidis Assessment and Plan (1) Cellulitis Status: Acute Code(s): L03.90 - CELLULITIS, UNSPECIFIED SNOMED Code(s): 285438542 (2) Type 2 diabetes mellitus with other skin ulcer Status: Acute Code(s): E11.622 - TYPE 2 DIABETES MELLITUS WITH OTHER SKIN ULCER; L98.499 - NON-PRESSURE CHRONIC ULCER OF SKIN OF SITES W UNSP SEVERITY SNOMED Code(s): 350412993 Plan: 1patient with acute right lower extremity cellulitis in this patient with diffuse swelling to bilateral lower extremities evidence of fluid overload with a superficial laceration to the right lower leg from a ruptured blister we will need to cover for the gram-positive skin deniz to be the likely pathogen. 2positive blood culture with staph epi more likely skin contamination though covered with Unasyn , blood cultures has been repeated which are negative so far 3-patient has shown clinical improvement with Unasyn and plan is to finish therapy with oral Augmentin 10 days on discharge and close outpatient follow-up Time with Patient: Less than 30
--- NOTE | 2022-12-20 16:34 | CDI ---
Documentation Clarification Form Date: 12/20/2022 04:23:52 PM From: Tierney Mcmanus Admit Date: 12/13/2022 12:14:00 AM Patient Name: Lex Maldonado Visit Number: [id number] Discharge Date: 12/18/2022 03:11:00 PM ATTENTION: The Clinical Documentation Specialists (CDI) and [facility] Coding Staff appreciate your assistance in clarifying documentation. Please respond to the clarification below the line at the bottom and electronically sign. The CDI & [facility] Coding staff will review the response and follow-up if needed. Please note: Queries are made part of the Legal Health Record. If you have any questions, please contact the author of this message via ITS. Dr. Catalino Banks Acute Cellulitis right lower extremity is documented in History and Physical 12/13/22. Additional clarification regarding the type of cellulitis is requested. History/risk factors: patient is a 67 year old male with a history of type 2 diabetes mellitus. He has had a large blister for about a week. Clinical Indicators: patient has type 2 DM, with acute cellulitis of the right lower extremity associated with a large blister that broke down. Per Dr Davila Consult note 12/13 he has diffuse swelling to bilateral lower extremities evidence of fluid overload with a superficial laceration to the right lower leg from a ruptured blister, we will need to cover for gram- positive skin deniz to be the likely pathogen. Per Dr Rodriguez consult note 12/13 patient has a non- pressure ulcer of right calf with fat layer exposed Treatment: IV Unasyn, D/C on Augmentin for 10 days Please clarify the etiology of the cellulitis, if known: [ + ] Cellulitis is a diabetic skin complication [ ] Cellulitis is not a diabetic skin complication [ ] Other, please specify: [ ] Unable to determine MTDD
== END 2022-12-18 15:11 | DRG 637 ==
LOC: EC 19:00 → 4SSUR 12-13 00:14
PROVIDERS: ADMIT Hospitalist; ATTEND Hospitalist
DX: E11.628 Type 2 diabetes mellitus with other skin complications (principal); G93.41 Metabolic encephalopathy; J96.02 Acute respiratory failure with hypercapnia; L03.115 Cellulitis of right lower limb; Z68.42 Body mass index [BMI] 45.0-49.9, adult; L97.212 Non-pressure chronic ulcer of right calf with fat layer exposed; E87.20 Acidosis, unspecified; J98.11 Atelectasis; N13.8 Other obstructive and reflux uropathy; L03.116 Cellulitis of left lower limb; N17.0 Acute kidney failure with tubular necrosis; E66.01 Morbid (severe) obesity due to excess calories; N18.9 Chronic kidney disease, unspecified; E11.22 Type 2 diabetes mellitus with diabetic chronic kidney disease; Z79.4 Long term (current) use of insulin; F32.A Depression, unspecified; E78.5 Hyperlipidemia, unspecified; G47.33 Obstructive sleep apnea (adult) (pediatric); S80.821A Blister (nonthermal), right lower leg, initial encounter; R33.9 Retention of urine, unspecified; E87.5 Hyperkalemia; E11.65 Type 2 diabetes mellitus with hyperglycemia; R04.0 Epistaxis; E11.622 Type 2 diabetes mellitus with other skin ulcer; S81.811A Laceration without foreign body, right lower leg, initial encounter; I13.10 Hypertensive heart and chronic kidney disease without heart failure, with stage 1 through stage 4 chronic kidney disease, or unspecified chronic kidney disease; I48.0 Paroxysmal atrial fibrillation; I87.8 Other specified disorders of veins; N40.1 Benign prostatic hyperplasia with lower urinary tract symptoms; Z85.828 Personal history of other malignant neoplasm of skin; Z79.899 Other long term (current) drug therapy; Z79.01 Long term (current) use of anticoagulants; Z74.01 Bed confinement status; Z88.8 Allergy status to other drugs, medicaments and biological substances
CPT/HCPCS: 36415; 36600; 71045; 76770; 80048; 80053; 81003; 82009; 82533; 82805; 83036; 83605; 83735; 83880; 83930; 83935; 84132; 84439; 84443; 84484; 85025; 85610; 85730; 87040; 93005; 94660; 94760; 96361; 96365; 99285

== ENCOUNTER 2023-01-01 22:02 | Observation (INO) | payer OTHER ==
[2023-01-01 22:14] LABS: Glucose,Whole Blood 138 mg/dL (70-110)
[2023-01-01] MEDS ORDERED: SODIUM CHLORIDE 0.9% 1,000 ML IV ONE (22:21)
[2023-01-01 23:01] LABS: Basophils % (A) 0 %; Eosinophils % (A) 0 %; HCT 38.2 % (39.0-53.0); HGB 12.3 gm/dL (13.0-17.5); INR 1.1 (<1.2); Lymphocytes # (A) 1.9 k/uL (1.0-4.8); Lymphocytes % (A) 29 %; MCH 30.4 pg (25.0-35.0); MCHC 32.2 g/dL (31.0-37.0); MCV 94.3 fL (80.0-100.0); Mean Platelet Volume 7.5; Monocytes # (A) 0.6 k/uL (0-1.0); Monocytes % (A) 9 %; Neutrophils # (A) 3.9 k/uL (1.3-7.7); Neutrophils % (A) 59 %; Partial Thromboplastin Time 24.4 sec (22.0-30.0); Platelet Count 194 k/uL (150-450); Prothrombin Time 11.1 sec (9.0-12.0); RBC 4.05 m/uL (4.30-5.90); RDW 13.6 % (11.5-15.5); WBC 6.6 k/uL (3.8-10.6)
[2023-01-01 23:18] LABS: Lactic Acid, Venous 1.1 mmol/L (0.7-2.0)
[2023-01-01 23:21] LABS: ALT 26 U/L (4-49); AST 27 U/L (17-59); African American GFR (CKD) 48 (>60 ml/min/1.73 sqM); Albumin 3.1 g/dL (3.5-5.0); Alcohol <10 mg/dL; Alkaline Phosphatase 96 U/L (38-126); Anion Gap 8 mmol/L; Blood Urea Nitrogen 58 mg/dL (9-20); Calcium 8.1 mg/dL (8.4-10.2); Carbon Dioxide 25 mmol/L (22-30); Chloride 102 mmol/L (98-107); Glucose 129 mg/dL (74-99); Non-African American GFR(CKD) 41 (>60 ml/min/1.73 sqM); Potassium 5.1 mmol/L (3.5-5.1); Sodium 135 mmol/L (137-145); Total Bilirubin 0.7 mg/dL (0.2-1.3); Total Protein 5.5 g/dL (6.3-8.2)
--- NOTE | 2023-01-01 23:22 | CT ---
EXAMINATION TYPE: CT brain wo con CT DLP: 1166.6 mGycm, Automated exposure control for dose reduction was used. DATE OF EXAM: 01/01/2023 10:58 PM COMPARISON: None. CLINICAL INDICATION:Male, 67 years old with history of Altered mental status, AMS TECHNIQUE: Brain: Axial CT images of the brain were obtained with coronal and sagittal reformats created and rev iewed. Contrast used: None. Oral contrast used: None. FINDINGS: Brain: Extra-axial spaces: No abnormal extra-axial fluid collections. Ventricular system: Dilatation in proportion to cerebral atrophy. Cerebral parenchyma: Cerebral atrophy. No acute intraparenchymal hemorrhage or mass effect. The chun -white junction is well differentiated. Scattered hypoattenuating areas are seen within the white mat ter. Cerebellum: Unremarkable. Mass effect: No evidence of midline shift. Intracranial vasculature: Atherosclerotic calcifications of the intracranial vessels. Soft tissues: Normal. Calvarium/osseous structures: No depressed skull fracture. Paranasal sinuses and mastoid air cells: Mild scattered paranasal sinus disease. Visualized orbits: Bilateral aphakia IMPRESSION: 1. No acute intracranial process. 2. Nonspecific white matter changes, likely secondary to chronic small vessel ischemic disease.
--- NOTE | 2023-01-01 23:23 | XR ---
EXAMINATION TYPE: XR chest 1V DATE OF EXAM: 01/01/2023 11:11 PM COMPARISON: Chest radiographs from 12/13/2022 TECHNIQUE: XR chest 1V Frontal view of the chest. CLINICAL INDICATION:Male, 67 years old with history of altered mental status; FINDINGS: Lungs/Pleura: There is no evidence of pleural effusion, focal consolidation, or pneumothorax. Pulmonary vascularity: Unremarkable. Heart/mediastinum: Cardiomediastinal silhouette is enlarged and stable. Musculoskeletal: No acute osseous pathology. IMPRESSION: No acute cardiopulmonary disease/process.
[2023-01-01 23:59] LABS: Appearance,Urine Clear (Clear); Bilirubin,Urine Negative (Negative); Blood,Urine Negative (Negative); Color,Urine Light Yellow; Glucose,Urine (UA) Negative (Negative); Ketones,Urine Negative (Negative); Leukocyte Esterase,Urine Negative (Negative); Nitrite,Urine Negative (Negative); Protein,Urine Negative (Negative); Specific Gravity,Urine 1.009 (1.001-1.035); Urobilinogen,Urine <2.0 mg/dL (<2.0)
[2023-01-02] MEDS ORDERED: VANCOMYCIN IV PER PHARMACY 1 EACH MISC MISCELLANE PRN (00:16)
[2023-01-02] MEDS ORDERED: VANCOMYCIN 2,000 MG in SODIUM CHLORIDE 0.9% 500 ML 500 ML IVPB STA (00:18)
[2023-01-02 00:19] LABS: Amphetamine Screen,Urine Not Detected (NotDetected); Barbiturate Screen,Urine Not Detected (NotDetected); Benzodiazepines Screen,Urine Not Detected (NotDetected); Cocaine Screen,Urine Not Detected (NotDetected); Methadone Screen, Urine Not Detected (NotDetected); Opiate Screen,Urine Detected (NotDetected); Oxycodone Screen, Urine Not Detected (NotDetected); Phencyclidine Screen,Urine Not Detected (NotDetected); Tricyclic Antidepressant,Urine Not Detected (NotDetected); Urn Cannabinoid Scrn Not Detected (NotDetected)
[2023-01-02] MEDS ORDERED: ACETAMINOPHEN TAB 325 MG TAB PO PRN (00:34)
[2023-01-02] MEDS ORDERED: NALOXONE 0.4 MG/ML 1 ML VIAL IV PRN (00:34)
[2023-01-02] MEDS ORDERED: ONDANSETRON 4 MG/2 ML VIAL IVP PRN (00:34)
[2023-01-02] MEDS ORDERED: DEXTROSE 50% SYRINGE 50 ML IVP PRN ×4 (00:36→09:52)
--- NOTE | 2023-01-02 01:32 | ED ---
General Adult HPI - General Chief complaint: Altered Mental Status Stated complaint: Altered Mental Time Seen by Provider: 01/01/23 22:13 Source: patient, EMS, RN notes reviewed, old records reviewed Mode of arrival: EMS - History of Present Illness Initial comments: Patient is a 67-year-old male with past medical history remarkable for atrial fibrillation on blood thinners, diabetes, hypertension, right blanchard skin wound recently stopped antibiotics who presents from [facility]. He apparently has been having altered mental status. However patient is alert and oriented to me. He has been feeling somewhat off and weak over the last few days. States he sees shadows. Denies any headaches or chest pain. Denies any shortness of breath, abdominal pain, nausea, vomiting. Has no other acute complaints at this time. Presents for further evaluation at this time. - Related Data Home Medications Medication Instructions Recorded Confirmed Apixaban [Eliquis] 5 mg PO BID 04/11/17 12/12/22 Cholecalciferol [Vitamin D3 (25 25 mcg PO HS 12/12/22 12/12/22 Mcg = 1000 Iu)] Exenatide Microspheres [Bydureon 2 mg SQ NEVAREZ 12/12/22 12/12/22 Bcise Auto-Injector] FLUoxetine HCL [PROzac] 20 mg PO DAILY 12/12/22 12/12/22 Ferrous Sulfate [Iron (65 MG 325 mg PO HS 12/12/22 12/12/22 Elemental)] Insulin Glargine,Hum.rec.anlog 30 units SQ HS 12/12/22 12/12/22 [Lantus Solostar Pen] Insulin Lispro [humaLOG Kwikpen] See Protocol SQ TID-W/MEALS 12/12/22 12/12/22 Nystatin 100,000Unit/gm Cream 1 applic TOPICAL BID 12/12/22 12/12/22 [Mycostatin Cream] Testosterone [Androgel 1.62% Gel 2 packet TOPICAL DAILY 12/12/22 12/12/22 Packet] carvediloL [Coreg] 25 mg PO BID 12/12/22 12/12/22 Previous Rx's Medication Instructions Recorded Acetaminophen Tab [Tylenol] 500 mg PO Q6HR PRN tab 12/17/22 Amoxic-Pot Clav 875-125Mg 1 tab PO BID 10 Days #20 tab 12/17/22 [Augmentin 875-125] Atorvastatin [Lipitor] 10 mg PO DAILY tab 12/17/22 Losartan [Cozaar] 25 mg PO DAILY #0 12/17/22 Tamsulosin [Flomax] 0.4 mg PO PC-SUPPER cap 12/17/22 Allergies Allergy/AdvReac Type Severity Reaction Status Date / Time lisinopril [From Prinivil] AdvReac Cough Verified 01/01/23 22:10 Review of Systems ROS Statement: Those systems with pertinent positive or pertinent negative responses have been documented in the HPI. Review of Systems: CONST: Denies fever EYES: Denies blurry vision ENT: Denies nasal congestion C/V: Denies Chest pain RESP: Denies shortness of breath GI: Denies abdominal pain : Denies dysuria SKIN: Endorses skin wound over right blanchard MSK: Denies joint pain. NEURO: Denies headache ROS Other: All systems not noted in ROS Statement are negative. Past Medical History Past Medical History: Atrial Fibrillation, Cancer, Diabetes Mellitus, Hyperlipidemia, Hypertension, Sleep Apnea/CPAP/BIPAP Additional Past Medical History / Comment(s): Basal cell carcinoma, Heart murmur History of Any Multi-Drug Resistant Organisms: None Reported Past Surgical History: No Surgical Hx Reported Additional Past Surgical History / Comment(s): Cataract surgery right eye Past Anesthesia/Blood Transfusion Reactions: No Reported Reaction Past Psychological History: Depression Smoking Status: Never smoker Past Alcohol Use History: None Reported Past Drug Use History: None Reported - Past Family History Mother Family Medical History: Diabetes Mellitus General Exam - General Exam Comments Initial Comments: General: Appears in no acute distress. HEAD: Normal with no signs of head trauma. EYES: PERRLA, EOMI, conjunctiva normal, no discharge. Pupils 3 mm equal bilaterally. ENT: Hearing grossly intact, normal oropharynx. RESPIRATORY: Clear breath sounds bilaterally. No wheezes, rales, or rhonchi. C/V: Regular rate and rhythm. S1 and S2 auscultated, bilateral lower extremity symmetrical pitting edema, peripheral pulses 2+ and intact throughout ABD: Abd is soft, nontender, nondistended EXT: Normal range of motion, no obvious deformity SKIN: Patient has open wounds over the anterior right blanchard. The more inferior medial wound does have some what appears to be yellow-green purulent drainage with some surrounding erythema. Concerned for a continued infection at this site. NEURO: Alert and oriented x 4. Cranial nerves II-XII intact. No focal sensory or strength deficits. GCS of 15. NIH of 0. Course Vital Signs 01/01/23 01/01/23 22:04 23:47 Temperature 98.6 F Pulse Rate 67 73 Respiratory 18 16 Rate Blood Pressure 106/66 118/37 O2 Sat by Pulse 98 Oximetry Medical Decision Making - Medical Decision Making Was pt. sent in by a medical professional or institution (, PA, EDUCATIONAL SPECIALIST, urgent care, hospital, or skilled nursing...) When possible be specific @ -No Did you speak to anyone other than the patient for history (EMS, parent, family, police, friend...)? What history was obtained from this source @ -No Did you review nursing and triage notes (agree or disagree)? Why? @ -I reviewed and agree with nursing and triage notes Were old charts reviewed (outside hosp., previous admission, EMS record, old EKG, old radiological studies, urgent care reports/EKG's, skilled nursing records)? Report findings @ -Reviewed paperwork from nursing facility including medication list. Differential Diagnosis (chest pain, altered mental status, abdominal pain women, abdominal pain men, vaginal bleeding, weakness, fever, dyspnea, syncope, headache, dizziness, GI bleed, back pain, seizure, CVA, palpatations, mental health, musculoskeletal)? @ -Differential Altered Mental Status: Hypoglycemia, DKA, hypercapnia, ETOH, overdose, CO poisoning, trauma, myxedema coma, HTN encephalopathy, infection, encephalitis, psychosis, intercranial hemorrhage, hepatic encephalopathy, meningitis, CVA, this is not meant to be an all-inclusive list EKG interpreted by me (3pts min.). @ -As above X-rays interpreted by me (1pt min.). @ -Chest x-ray revealed no obvious acute cardio pulmonary process. CT interpreted by me (1pt min.). @ -CT brain revealed no obvious acute intracranial injury or process. U/S interpreted by me (1pt. min.). @ -None done What testing was considered but not performed or refused? (CT, X-rays, U/S, labs)? Why? @ -None What meds were considered but not given or refused? Why? @ -None Did you discuss the management of the patient with other professionals (professionals i.e. , PA, EDUCATIONAL SPECIALIST, lab, RT, psych nurse, social service liaison, manager express, teacher, stream control officer, case management manager)? Give summary @ -No Was smoking cessation discussed for >3mins.? @ -No Was critical care preformed (if so, how long)? @ -No Were there social determinants of health that impacted care today? How? (Homelessness, low income, unemployed, alcoholism, drug addiction, transportation, low edu. Level, literacy, decrease access to med. care, assisted, rehab)? @ -No Was there de-escalation of care discussed even if they declined (Discuss DNR or withdrawal of care, Hospice)? DNR status @ -No What co-morbidities impacted this encounter? (DM, HTN, Smoking, COPD, CAD, Cancer, CVA, ARF, Chemo, Hep., AIDS, mental health diagnosis, sleep apnea, morbid obesity)? @ -None Was patient admitted / discharged? Hospital course, mention meds given and route, prescriptions, significant lab abnormalities, going to OR and other pertinent info. @ -Based on the patient's presentation and physical exam, he comes in for altered mental status but it seems to be more weakness. Neuro exam unremarkable. I'm concerned for continued infection his right leg. We'll obtain an infectious labs as well as wound cultures. Patient will be started on IV vancomycin. We'll obtain altered mental status workup as well. Patient was in agreement with this plan. He'll be given a single liter of fluid bolus. Vital signs within acceptable limits. CT brain unremarkable. Chest x-ray unremarkable. EKG shows no signs of acute ischemia. Labs are remarkable for CK D. Troponin undetectable. Lactic acid within normal limits. No other obvious findings on labs. I discussed the results with the patient. Mental status remains unchanged. Due to his continued weakness as well as concern for cellulitis, I will start him on IV vancomycin, admitted to the hospital and have infectious disease evaluate him. Patient was in agreement this plan. I spoke with the admitting physician, Dr. Banks who accepted the patient. Undiagnosed new problem with uncertain prognosis? @ -No Drug Therapy requiring intensive monitoring for toxicity (Heparin, Nitro, Insulin, Cardizem)? @ -No Were any procedures done? @ -No Diagnosis/symptom? @ -Cellulitis, weakness Acute, or Chronic, or Acute on Chronic? @ -Acute Uncomplicated (without systemic symptoms) or Complicated (systemic symptoms)? @ -Complicated Side effects of treatment? @ -No Exacerbation, Progression, or Severe Exacerbation? @ -No Poses a threat to life or bodily function? How? (Chest pain, [place], [place], pneumonia, PE, COPD, DKA, ARF, appy, cholecystitis, CVA, Diverticulitis, Homicidal, Suicidal, threat to staff... and all critical care pts) @ -Potentially yes - Lab Data Result diagrams: 01/01/23 22:30 01/01/23 22:30 Lab Results 01/01/23 01/01/23 01/01/23 Range/Units 22:12 22:30 22:30 WBC 6.6 (3.8-10.6) k/uL RBC 4.05 L (4.30-5.90) m/uL Hgb 12.3 L (13.0-17.5) gm/dL Hct 38.2 L (39.0-53.0) % MCV 94.3 (80.0-100.0) fL MCH 30.4 (25.0-35.0) pg MCHC 32.2 (31.0-37.0) g/dL RDW 13.6 (11.5-15.5) % Plt Count 194 (150-450) k/uL MPV 7.5 Neutrophils % 59 % Lymphocytes % 29 % Monocytes % 9 % Eosinophils % 0 % Basophils % 0 % Neutrophils # 3.9 (1.3-7.7) k/uL Lymphocytes # 1.9 (1.0-4.8) k/uL Monocytes # 0.6 (0-1.0) k/uL Eosinophils # 0.0 (0-0.7) k/uL Basophils # 0.0 (0-0.2) k/uL PT 11.1 (9.0-12.0) sec INR 1.1 (<1.2) APTT 24.4 (22.0-30.0) sec Sodium (137-145) mmol/L Potassium (3.5-5.1) mmol/L Chloride (98-107) mmol/L Carbon Dioxide (22-30) mmol/L Anion Gap mmol/L BUN (9-20) mg/dL Creatinine (0.66-1.25) mg/dL Est GFR (CKD-EPI)AfAm (>60 ml/min/1.73 sqM) Est GFR (CKD-EPI)NonAf (>60 ml/min/1.73 sqM) Glucose (74-99) mg/dL POC Glucose (mg/dL) 138 H (70-110) mg/dL POC Glu Milk Hauler ID Tuyet Ceron Plasma Lactic Acid Tho (0.7-2.0) mmol/L Calcium (8.4-10.2) mg/dL Total Bilirubin (0.2-1.3) mg/dL AST (17-59) U/L ALT (4-49) U/L Alkaline Phosphatase (38-126) U/L Ammonia (<30) umol/L Troponin I (0.000-0.034) ng/mL Total Protein (6.3-8.2) g/dL Albumin (3.5-5.0) g/dL Urine Color Urine Appearance (Clear) Urine pH (5.0-8.0) Ur Specific [place] (1.001-1.035) Urine Protein (Negative) Urine Glucose (UA) (Negative) Urine Ketones (Negative) Urine Blood (Negative) Urine Nitrite (Negative) Urine Bilirubin (Negative) Urine Urobilinogen (<2.0) mg/dL Ur Leukocyte Esterase (Negative) Urine Opiates Screen (NotDetected) Ur Oxycodone Screen (NotDetected) Urine Methadone Screen (NotDetected) Ur Propoxyphene Screen (NotDetected) Ur Barbiturates Screen (NotDetected) U Tricyclic Antidepress (NotDetected) Ur Phencyclidine Scrn (NotDetected) Ur Amphetamines Screen (NotDetected) U Methamphetamines Scrn (NotDetected) U Benzodiazepines Scrn (NotDetected) Urine Cocaine Screen (NotDetected) U Marijuana (THC) Screen (NotDetected) Serum Alcohol mg/dL 01/01/23 01/01/23 01/01/23 Range/Units 22:30 22:30 22:30 WBC (3.8-10.6) k/uL RBC (4.30-5.90) m/uL Hgb (13.0-17.5) gm/dL Hct (39.0-53.0) % MCV (80.0-100.0) fL MCH (25.0-35.0) pg MCHC (31.0-37.0) g/dL RDW (11.5-15.5) % Plt Count (150-450) k/uL MPV Neutrophils % % Lymphocytes % % Monocytes % % Eosinophils % % Basophils % % Neutrophils # (1.3-7.7) k/uL Lymphocytes # (1.0-4.8) k/uL Monocytes # (0-1.0) k/uL Eosinophils # (0-0.7) k/uL Basophils # (0-0.2) k/uL PT (9.0-12.0) sec INR (<1.2) APTT (22.0-30.0) sec Sodium 135 L (137-145) mmol/L Potassium 5.1 (3.5-5.1) mmol/L Chloride 102 (98-107) mmol/L Carbon Dioxide 25 (22-30) mmol/L Anion Gap 8 mmol/L BUN 58 H (9-20) mg/dL Creatinine 1.67 H (0.66-1.25) mg/dL Est GFR (CKD-EPI)AfAm 48 (>60 ml/min/1.73 sqM) Est GFR (CKD-EPI)NonAf 41 (>60 ml/min/1.73 sqM) Glucose 129 H (74-99) mg/dL POC Glucose (mg/dL) (70-110) mg/dL POC Glu Milk Hauler ID Plasma Lactic Acid Tho 1.1 (0.7-2.0) mmol/L Calcium 8.1 L (8.4-10.2) mg/dL Total Bilirubin 0.7 (0.2-1.3) mg/dL AST 27 (17-59) U/L ALT 26 (4-49) U/L Alkaline Phosphatase 96 (38-126) U/L Ammonia <9 (<30) umol/L Troponin I <0.012 (0.000-0.034) ng/mL Total Protein 5.5 L (6.3-8.2) g/dL Albumin 3.1 L (3.5-5.0) g/dL Urine Color Urine Appearance (Clear) Urine pH (5.0-8.0) Ur Specific [place] (1.001-1.035) Urine Protein (Negative) Urine Glucose (UA) (Negative) Urine Ketones (Negative) Urine Blood (Negative) Urine Nitrite (Negative) Urine Bilirubin (Negative) Urine Urobilinogen (<2.0) mg/dL Ur Leukocyte Esterase (Negative) Urine Opiates Screen (NotDetected) Ur Oxycodone Screen (NotDetected) Urine Methadone Screen (NotDetected) Ur Propoxyphene Screen (NotDetected) Ur Barbiturates Screen (NotDetected) U Tricyclic Antidepress (NotDetected) Ur Phencyclidine Scrn (NotDetected) Ur Amphetamines Screen (NotDetected) U Methamphetamines Scrn (NotDetected) U Benzodiazepines Scrn (NotDetected) Urine Cocaine Screen (NotDetected) U Marijuana (THC) Screen (NotDetected) Serum Alcohol <10 mg/dL 01/01/23 01/01/23 Range/Units 23:40 23:40 WBC (3.8-10.6) k/uL RBC (4.30-5.90) m/uL Hgb (13.0-17.5) gm/dL Hct (39.0-53.0) % MCV (80.0-100.0) fL MCH (25.0-35.0) pg MCHC (31.0-37.0) g/dL RDW (11.5-15.5) % Plt Count (150-450) k/uL MPV Neutrophils % % Lymphocytes % % Monocytes % % Eosinophils % % Basophils % % Neutrophils # (1.3-7.7) k/uL Lymphocytes # (1.0-4.8) k/uL Monocytes # (0-1.0) k/uL Eosinophils # (0-0.7) k/uL Basophils # (0-0.2) k/uL PT (9.0-12.0) sec INR (<1.2) APTT (22.0-30.0) sec Sodium (137-145) mmol/L Potassium (3.5-5.1) mmol/L Chloride (98-107) mmol/L Carbon Dioxide (22-30) mmol/L Anion Gap mmol/L BUN (9-20) mg/dL Creatinine (0.66-1.25) mg/dL Est GFR (CKD-EPI)AfAm (>60 ml/min/1.73 sqM) Est GFR (CKD-EPI)NonAf (>60 ml/min/1.73 sqM) Glucose (74-99) mg/dL POC Glucose (mg/dL) (70-110) mg/dL POC Glu Milk Hauler ID Plasma Lactic Acid Tho (0.7-2.0) mmol/L Calcium (8.4-10.2) mg/dL Total Bilirubin (0.2-1.3) mg/dL AST (17-59) U/L ALT (4-49) U/L Alkaline Phosphatase (38-126) U/L Ammonia (<30) umol/L Troponin I (0.000-0.034) ng/mL Total Protein (6.3-8.2) g/dL Albumin (3.5-5.0) g/dL Urine Color Light Yellow Urine Appearance Clear (Clear) Urine pH 5.0 (5.0-8.0) Ur Specific [place] 1.009 (1.001-1.035) Urine Protein Negative (Negative) Urine Glucose (UA) Negative (Negative) Urine Ketones Negative (Negative) Urine Blood Negative (Negative) Urine Nitrite Negative (Negative) Urine Bilirubin Negative (Negative) Urine Urobilinogen <2.0 (<2.0) mg/dL Ur Leukocyte Esterase Negative (Negative) Urine Opiates Screen Detected H (NotDetected) Ur Oxycodone Screen Not Detected (NotDetected) Urine Methadone Screen Not Detected (NotDetected) Ur Propoxyphene Screen Not Detected (NotDetected) Ur Barbiturates Screen Not Detected (NotDetected) U Tricyclic Antidepress Not Detected (NotDetected) Ur Phencyclidine Scrn Not Detected (NotDetected) Ur Amphetamines Screen Not Detected (NotDetected) U Methamphetamines Scrn Not Detected (NotDetected) U Benzodiazepines Scrn Not Detected (NotDetected) Urine Cocaine Screen Not Detected (NotDetected) U Marijuana (THC) Screen Not Detected (NotDetected) Serum Alcohol mg/dL - EKG Data -: EKG Interpreted by Me EKG Comments: 12-lead Electrocardiogram Interpretation Note EKG was reviewed and interpreted by myself. 12-lead ECG performed at 2210 is interpreted by me as revealing normal sinus rhythm at a rate of 71 beats per minute. Stanton is normal. MD interval is 153 ms, QRS duration is 90 ms, QTc is 400 ms.. There were no ST or T wave abnormalities to suggest myocardial ischemia or injury. R wave progression across the precordium was satisfactory. By my interpretation this EKG is non-diagnostic for acute ischemia. Disposition Clinical Impression: Weakness, Cellulitis Disposition: ADMITTED IP TO THIS HOSP Condition: Stable Time of Disposition: 00:22
[2023-01-02] MEDS ORDERED: traMADol 50 MG TAB PO PRN (02:09)
[2023-01-02] MEDS: diphenhydrAMINE 25 MG CAP PO PRN (02:24)
[2023-01-02 06:40] LABS: Glucose,Whole Blood 178 mg/dL (70-110)
[2023-01-02] MEDS: INSULIN ASPART (NovoLOG) 100 UNIT/ML VIAL SQ SCH ×3 (06:48→17:56)
[2023-01-02] MEDS: carvediloL 12.5 MG TAB PO SCH ×2 (06:48→17:56)
[2023-01-02] MEDS: APIXABAN 5 MG TAB PO SCH ×2 (09:00→20:43)
[2023-01-02] MEDS: ATORVASTATIN 10 MG TAB PO SCH (09:00)
[2023-01-02] MEDS ORDERED: LOSARTAN 25 MG TAB PO SCH (09:00)
[2023-01-02] MEDS ORDERED: HYDROcodone/APAP 5-325MG 1 EACH TAB PO PRN (09:51)
[2023-01-02] MEDS: TESTOSTERONE TOPICAL SCH (11:16)
[2023-01-02] MEDS: FLUoxetine HCL 20 MG CAP PO SCH (11:17)
[2023-01-02] MEDS: SODIUM CHLORIDE 0.9% 1,000 ML IV SCH (11:17)
[2023-01-02 12:45] LABS: Glucose,Whole Blood 170 mg/dL (70-110)
[2023-01-02] MEDS: AMPICILLIN-SULBACTAM 3 GM in SODIUM CHLORIDE 0.9% 100 ML IVPB SCH ×2 (13:10→17:57)
--- NOTE | 2023-01-02 15:17 | P.HPIM ---
History of Present Illness H&P Date: 01/02/23 Chief Complaint: Altered mental status This is a pleasant 67-year-old patient, follows with Dr. Emmie renteria. chronic stable medical conditions include atrial fibrillation, diabetes mellitus type 2, hyperlipidemia, hypertension, obstructive sleep apnea, basal cell carcinoma, depression. Patient is in the hospital recently from December 13 through December 18.-Had then presented with a large blister on the right lower extremity that are broken down with resulting cellulitis. He was discharged on Augmentin for 10 days. Patient has now been sent in for altered mental status. Has been feeling a bit weak and tired. Still has some cellulitis in the right lower extremity. Does use a walker. He'll 3 this morning. Appetite is fair. Patient's creatinine was noted to be 1.67. It was 1.17 and patient was discharged. Patient has chronic swelling in the lower extremity, right greater than left. No shortness of breath. Able to lie flat. No orthopnea. No fever no chills. Review of systems: GEN.: Tired, fever or chills EYES: None HEENT: None NECK: None RESPIRATORY: Some shortness of breath] CARDIOVASCULAR: None GASTROINTESTINAL: None GENITOURINARY: None MUSCULOSKELETAL: As above LYMPHATICS: None HEMATOLOGICAL: None PSYCHIATRY: None NEUROLOGICAL: None Past medical history to include: Atrial fibrillation, diabetes mellitus, hyperlipidemia, hypertension, obstructi ve sleep apnea, heart murmur depression Social history: No smoking or alcohol. Lives alone Physical examination: VITAL SIGNS: ID 8.1, 72, 16, 99/53, 94% room air GENERAL: BMI 42.2, reclining in bed awake comfortable. EYES: Pupils equal. Conjunctiva normal. HEENT: External appearance of nose and ears normal, oral cavity grossly normal. NECK: JVD not raised; masses not palpable. HEART: First and second heart sounds are normal; no edema. LUNGS: Respiratory rate increased; clear to auscultation. ABDOMEN: Soft, nontender, liver spleen not palpable, no masses palpable. PSYCH: Alert and oriented x3; mood and affect a bit anxiousl. MUSCULOSKELETAL:No Clubbing/cyanosis;muscles-grossly intact EXTREMITY: Swelling of the right lower extremity greater than compared to left. Large raw area of skin breakdown on the medial aspect of the right lower leg. Some symptoms with surrounding cellulitis. Small areas of superficial wound on the right lower extremity. NEUROLOGICAL: Cranial nerves grossly intact; no facial asymmetry, power and sensation grossly intact. LYMPHATICS: No lymph nodes palpable in the axilla and neck INVESTIGATIONS, reviewed in the clinical context: January 01: WBC 6.6 globin 12.3 platelets 104 potassium 5.1 BUN 58 creatinine 1.67 EKG tracing personally reviewed by me-normal sinus rhythm. Nonspecific T-wave Chest x-ray film personally reviewed by me-portable. Underpenetrated. Nothing acute CT brain: Unspecified. Chronic changes Urine drug screen positive for opiates Previous labs December 17: Potassium 4.8 BUN 45 creatinine 1.17 Doppler ultrasound right lower extremity: Negative for DVT Chest x-ray film personally reviewed by me-a bit underpenetrated Assessment and plan: -Possible acute metabolic encephalopathy from worsening renal function. Patient already doing better this morning. Compared to yesterday. -Acute on chronic cellulitis right lower extremity, associated large blister that broke down. Weeks ago chronic edema of the right lower extremity, right greater than left. She has received a course of Augmentin recently. ID consulted -Acute kidney injury, prerenal from decreased oral intake. Admission creatinine 67. On December 17 was: 1.17. Hold Cozaar -Morbid obesity BMI with a 2.2 Weight loss measures -Diabetes mellitus type 2, chronically on insulin, uncontrolled with hyperglycemia. Follow Accu-Cheks and sliding scale. Levemir -Depression Prozac 20 mg -Hyperlipidemia Lipitor 10 mg a day -Urine outflow obstruction likely BPH Flomax 0.4 mg a day -Obstructive sleep apnea, wears CPAP at home Continue home CPAP -Essential hypertension Coreg 25 mg twice a day, Cozaar-hold -Paroxysmal atrial fibrillation, currently in sinus rhythm CoregGage Cornell -Full code ID consulted. IV Unasyn. Local wound care. Hold Cozaar. Hydrate. Repeat labs in the morning. Discussed with patient, caser. Past Medical History Past Medical History: Atrial Fibrillation, Cancer, Diabetes Mellitus, Hyperlipidemia, Hypertension, Sleep Apnea/CPAP/BIPAP Additional Past Medical History / Comment(s): Basal cell carcinoma, Heart murmur History of Any Multi-Drug Resistant Organisms: None Reported Past Surgical History: No Surgical Hx Reported Additional Past Surgical History / Comment(s): Cataract surgery right eye Past Anesthesia/Blood Transfusion Reactions: No Reported Reaction Past Psychological History: Depression Smoking Status: Never smoker Past Alcohol Use History: None Reported Past Drug Use History: None Reported - Past Family History Mother Family Medical History: Diabetes Mellitus Medications and Allergies Home Medications Medication Instructions Recorded Confirmed Type Apixaban [Eliquis] 5 mg PO BID 04/11/17 01/02/23 History Cholecalciferol [Vitamin D3 (25 25 mcg PO DAILY 12/12/22 01/02/23 History Mcg = 1000 Iu)] FLUoxetine HCL [PROzac] 20 mg PO DAILY 12/12/22 01/02/23 History Ferrous Sulfate [Iron (65 MG 325 mg PO HS 12/12/22 01/02/23 History Elemental)] Insulin Glargine,Hum.rec.anlog 30 units SQ HS 12/12/22 01/02/23 History [Lantus Solostar Pen] Insulin Lispro [humaLOG Kwikpen] See Protocol SQ TID-W/MEALS 12/12/22 01/02/23 History Testosterone [Androgel 1.62% Gel 2 packet TOPICAL DAILY 12/12/22 01/02/23 History Packet] carvediloL [Coreg] 25 mg PO BID 12/12/22 01/02/23 History Atorvastatin [Lipitor] 10 mg PO DAILY tab 12/17/22 01/02/23 Rx Losartan [Cozaar] 25 mg PO DAILY #0 12/17/22 01/02/23 Rx Acetaminophen Tab [Tylenol] 500 mg PO Q6HR PRN 01/02/23 01/02/23 History Furosemide [Lasix] 20 mg PO DAILY 01/02/23 01/02/23 History HYDROcodone/APAP 5-325MG [[place] 1 tab PO Q6H PRN 01/02/23 01/02/23 History 5-325] Tamsulosin HCl [Flomax] 0.4 mg PO DAILY 01/02/23 01/02/23 History Vitamin B-12 100mcg 1 tab PO DAILY 01/02/23 01/02/23 History Allergies Allergy/AdvReac Type Severity Reaction Status Date / Time famotidine [From Pepcid] Allergy Unknown Verified 01/02/23 08:28 lisinopril [From Prinivil] AdvReac Cough Verified 01/02/23 08:28 Physical Exam Vitals: Vital Signs Temp Pulse Pulse Resp BP BP Pulse Ox 01/02/23 07:00 98.1 F 72 16 99/53 94 L 01/02/23 01:59 98.2 F 77 18 137/61 95 01/01/23 23:47 73 16 118/37 01/01/23 22:04 98.6 F 67 18 106/66 98 Intake and Output 01/01/23 01/02/23 01/02/23 22:59 06:59 14:59 Intake Total 540 Output Total 250 Balance -250 540 Intake: Oral 540 Output: Urine 250 Other: Voiding Method Urinal Weight 145.15 kg 145.15 kg Results CBC & Chem 7: 01/01/23 22:30 01/01/23 22:30 Labs: Abnormal Lab Results - Last 24 Hours (Table) 01/01/23 01/01/23 01/01/23 Range/Units 22:12 22:30 22:30 RBC 4.05 L (4.30-5.90) m/uL Hgb 12.3 L (13.0-17.5) gm/dL Hct 38.2 L (39.0-53.0) % Sodium 135 L (137-145) mmol/L BUN 58 H (9-20) mg/dL Creatinine 1.67 H (0.66-1.25) mg/dL Glucose 129 H (74-99) mg/dL POC Glucose (mg/dL) 138 H (70-110) mg/dL Calcium 8.1 L (8.4-10.2) mg/dL Total Protein 5.5 L (6.3-8.2) g/dL Albumin 3.1 L (3.5-5.0) g/dL Urine Opiates Screen (NotDetected) 01/01/23 01/02/23 Range/Units 23:40 06:39 RBC (4.30-5.90) m/uL Hgb (13.0-17.5) gm/dL Hct (39.0-53.0) % Sodium (137-145) mmol/L BUN (9-20) mg/dL Creatinine (0.66-1.25) mg/dL Glucose (74-99) mg/dL POC Glucose (mg/dL) 178 H (70-110) mg/dL Calcium (8.4-10.2) mg/dL Total Protein (6.3-8.2) g/dL Albumin (3.5-5.0) g/dL Urine Opiates Screen Detected H (NotDetected)
[2023-01-02 17:44] LABS: Glucose,Whole Blood 188 mg/dL (70-110)
[2023-01-02] MEDS: TAMSULOSIN 0.4 MG CAP.ER.24H PO SCH (17:57)
--- NOTE | 2023-01-02 20:41 | P.CONS ---
History of Present Illness - Reason for Consult Consult date: 01/02/23 Leg wound Requesting physician: James Samano - Chief Complaint Mental status changes and weakness 1 day - History of Present Illness Patient is a 67-year-old male with a past medical history significant for diabetes mellitus hypertension hyperlipidemia sleep apnea atrial fibrillation recently admitted to the hospital with left lower extremity wound and cellulitis patient did have a positive blood culture with staph epi did disregard as possible contamination patient was treated with IV antibiotic therapy after stabilization discharged to the snf on a 10-day course of oral Augmentin which apparently patient has just completed, patient now pre senting to the ER concerning for mental status changes complaining of feeling weak patient has been lasting for a day or 2 patient denies having headache no chest pain no shortness of breath or cough no abdominal pain or diarrhea patient was noticed to have some erythema to the right lower extremity concerning for cellulitis the patient was started on vancomycin infectious disease was consulted for further management of chemotherapy patient presentation to hospital was afebrile and no fever has been recorded subsequently patient did have a chest x-ray no acute cardiopulmonary disease Review of Systems Positive point and negatives has been mentioned in the HPI, complete review of systems was performed and all other systems are negative Past Medical History Past Medical History: Atrial Fibrillation, Cancer, Diabetes Mellitus, Hyperlipidemia, Hypertension, Sleep Apnea/CPAP/BIPAP Additional Past Medical History / Comment(s): Basal cell carcinoma, Heart murmur History of Any Multi-Drug Resistant Organisms: None Reported Past Surgical History: No Surgical Hx Reported Additional Past Surgical History / Comment(s): Cataract surgery right eye Past Anesthesia/Blood Transfusion Reactions: No Reported Reaction Past Psychological History: Depression Smoking Status: Never smoker Past Alcohol Use History: None Reported Past Drug Use History: None Reported - Past Family History Mother Family Medical History: Diabetes Mellitus Medications and Allergies Home Medications Medication Instructions Recorded Confirmed Type Apixaban [Eliquis] 5 mg PO BID 04/11/17 01/02/23 History Cholecalciferol [Vitamin D3 (25 25 mcg PO DAILY 12/12/22 01/02/23 History Mcg = 1000 Iu)] FLUoxetine HCL [PROzac] 20 mg PO DAILY 12/12/22 01/02/23 History Ferrous Sulfate [Iron (65 MG 325 mg PO HS 12/12/22 01/02/23 History Elemental)] Insulin Glargine,Hum.rec.anlog 30 units SQ HS 12/12/22 01/02/23 History [Lantus Solostar Pen] Insulin Lispro [humaLOG Kwikpen] See Protocol SQ TID-W/MEALS 12/12/22 01/02/23 History Testosterone [Androgel 1.62% Gel 2 packet TOPICAL DAILY 12/12/22 01/02/23 History Packet] carvediloL [Coreg] 25 mg PO BID 12/12/22 01/02/23 History Atorvastatin [Lipitor] 10 mg PO DAILY tab 12/17/22 01/02/23 Rx Losartan [Cozaar] 25 mg PO DAILY #0 12/17/22 01/02/23 Rx Acetaminophen Tab [Tylenol] 500 mg PO Q6HR PRN 01/02/23 01/02/23 History Furosemide [Lasix] 20 mg PO DAILY 01/02/23 01/02/23 History HYDROcodone/APAP 5-325MG [[place] 1 tab PO Q6H PRN 01/02/23 01/02/23 History 5-325] Tamsulosin HCl [Flomax] 0.4 mg PO DAILY 01/02/23 01/02/23 History Vitamin B-12 100mcg 1 tab PO DAILY 01/02/23 01/02/23 History Acetaminophen Tab [Tylenol] 650 mg PO Q6HR PRN tab 01/03/23 Rx Allergies Allergy/AdvReac Type Severity Reaction Status Date / Time famotidine [From Pepcid] Allergy Unknown Verified 01/02/23 08:28 lisinopril [From Prinivil] AdvReac Cough Verified 01/02/23 08:28 Physical Exam Vitals: Vital Signs Temp Pulse Pulse Resp BP BP Pulse Ox 01/02/23 07:00 98.1 F 72 16 99/53 94 L 01/02/23 01:59 98.2 F 77 18 137/61 95 01/01/23 23:47 73 16 118/37 01/01/23 22:04 98.6 F 67 18 106/66 98 Intake and Output 01/01/23 01/02/23 01/02/23 22:59 06:59 14:59 Intake Total 540 Output Total 250 Balance -250 540 Intake: Oral 540 Output: Urine 250 Other: Voiding Method Urinal Weight 145.15 kg 145.15 kg GENERAL DESCRIPTION: An elderly male lying in bed, no distress. No tachypnea or accessory muscle of respiration use. HEENT: Shows Pallor , no scleral icterus. Oral mucous membrane is dry. No pharyngeal erythema or thrush NECK: Trachea central, no thyromegaly. LUNGS: Unlabored breathing. Decreased breath sound the bases HEART: S1, S2, regular rate and rhythm. No loud murmur ABDOMEN: Soft, no tenderness , guarding or rigidity, no organomegaly EXTREMITIES: Bilateral lower extremity edema he did have a wound on the right lower extremity with some slough tissue minimal surrounding redness SKIN: No rash, no masses palpable. NEUROLOGICAL: The patient is awake, alert, oriented x3, mood and affect normal. Results CBC & Chem 7: 01/03/23 06:24 01/03/23 06:24 Labs: Abnormal Lab Results - Last 24 Hours (Table) 01/01/23 01/01/23 01/01/23 Range/Units 22:12 22:30 22:30 RBC 4.05 L (4.30-5.90) m/uL Hgb 12.3 L (13.0-17.5) gm/dL Hct 38.2 L (39.0-53.0) % Sodium 135 L (137-145) mmol/L BUN 58 H (9-20) mg/dL Creatinine 1.67 H (0.66-1.25) mg/dL Glucose 129 H (74-99) mg/dL POC Glucose (mg/dL) 138 H (70-110) mg/dL Calcium 8.1 L (8.4-10.2) mg/dL Total Protein 5.5 L (6.3-8.2) g/dL Albumin 3.1 L (3.5-5.0) g/dL Urine Opiates Screen (NotDetected) 01/01/23 01/02/23 Range/Units 23:40 06:39 RBC (4.30-5.90) m/uL Hgb (13.0-17.5) gm/dL Hct (39.0-53.0) % Sodium (137-145) mmol/L BUN (9-20) mg/dL Creatinine (0.66-1.25) mg/dL Glucose (74-99) mg/dL POC Glucose (mg/dL) 178 H (70-110) mg/dL Calcium (8.4-10.2) mg/dL Total Protein (6.3-8.2) g/dL Albumin (3.5-5.0) g/dL Urine Opiates Screen Detected H (NotDetected) Assessment and Plan (1) Cellulitis Current Visit: Yes Status: Acute Code(s): L03.90 - CELLULITIS, UNSPECIFIED SNOMED Code(s): 021742101 (2) Type 2 diabetes mellitus with other skin ulcer Current Visit: No Status: Acute Code(s): E11.622 - TYPE 2 DIABETES MELLITUS WITH OTHER SKIN ULCER; L98.499 - NON-PRESSURE CHRONIC ULCER OF SKIN OF SITES W UNSP SEVERITY SNOMED Code(s): 818328922 Plan: 1patient with evidence of bilateral lower extremity swelling possibly from venous stasis with evidence of ulceration to the right lower extremity with minimal slough tissue and some surrounding redness and a possible component of cellulitis patient however is not febrile does not look toxic no elevated white count. 2patient with elevated creatinine high risk of nephrotoxicity from vancomycin 3-discontinue vancomycin 4-local wound care with Medihoney followed by moist dressing change daily along with Andrea wrap to keep the swelling down 5-we will start the patient on Unasyn 3 g every 8 hours for the right lower extremity cellulitis We will follow on clinical condition and cultures to further adjust medication if needed Thank you for this consultation we will follow the patient along with you Time with Patient: Greater than 30
[2023-01-02] MEDS: FERROUS SULFATE 325 MG TAB PO SCH (20:43)
[2023-01-02] MEDS: INSULIN DETEMIR (LEVEMIR) 100 UNIT/ML SYR SQ SCH (20:43)
[2023-01-02 20:46] LABS: Glucose,Whole Blood 267 mg/dL (70-110)
[2023-01-03] MEDS ORDERED: VANCOMYCIN 2,000 MG in SODIUM CHLORIDE 0.9% 500 ML 500 ML IVPB SCH ×2
[2023-01-03] MEDS: AMPICILLIN-SULBACTAM 3 GM in SODIUM CHLORIDE 0.9% 100 ML IVPB SCH ×5 (00:27→18:37)
[2023-01-03] MEDS: SODIUM CHLORIDE 0.9% 1,000 ML IV SCH ×2 (00:28→13:38)
[2023-01-03 06:03] LABS: Glucose,Whole Blood 147 mg/dL (70-110)
[2023-01-03] MEDS: INSULIN ASPART (NovoLOG) 100 UNIT/ML VIAL SQ SCH ×3 (06:11→17:55)
[2023-01-03] MEDS: carvediloL 12.5 MG TAB PO SCH ×2 (06:31→17:55)
[2023-01-03 06:54] LABS: Basophils % (A) 0 %; Eosinophils % (A) 0 %; HCT 40.7 % (39.0-53.0); HGB 12.8 gm/dL (13.0-17.5); Lymphocytes # (A) 1.6 k/uL (1.0-4.8); Lymphocytes % (A) 22 %; MCH 29.6 pg (25.0-35.0); MCHC 31.6 g/dL (31.0-37.0); MCV 93.9 fL (80.0-100.0); Mean Platelet Volume 7.5; Monocytes # (A) 0.5 k/uL (0-1.0); Monocytes % (A) 7 %; Neutrophils % (A) 68 %; Platelet Count 223 k/uL (150-450); RBC 4.33 m/uL (4.30-5.90); RDW 13.8 % (11.5-15.5); WBC 7.3 k/uL (3.8-10.6)
[2023-01-03 07:07] LABS: African American GFR (CKD) 57 (>60 ml/min/1.73 sqM); Anion Gap 7 mmol/L; Blood Urea Nitrogen 50 mg/dL (9-20); Carbon Dioxide 22 mmol/L (22-30); Chloride 106 mmol/L (98-107); Glucose 149 mg/dL (74-99); Non-African American GFR(CKD) 49 (>60 ml/min/1.73 sqM); Sodium 135 mmol/L (137-145)
[2023-01-03 07:23] LABS: Potassium 5.2 mmol/L (3.5-5.1)
[2023-01-03 07:55] LABS: Glucose,Whole Blood 141 mg/dL (70-110)
[2023-01-03] MEDS: APIXABAN 5 MG TAB PO SCH ×2 (08:15→20:48)
[2023-01-03] MEDS: ATORVASTATIN 10 MG TAB PO SCH (08:15)
[2023-01-03] MEDS: FLUoxetine HCL 20 MG CAP PO SCH (08:15)
[2023-01-03] MEDS: TESTOSTERONE TOPICAL SCH (08:15)
[2023-01-03] MEDS: CHOLECALCIFEROL 25 MCG (1000 IU) TABLET PO SCH (08:15)
[2023-01-03 12:19] LABS: Glucose,Whole Blood 220 mg/dL (70-110)
--- NOTE | 2023-01-03 13:22 | P.PN ---
Subjective Progress Note Date: 01/03/23 Principal diagnosis: Right leg wound and cellulitis Patient is a 67-year-old male with multiple comorbidities did have a bilateral lower extremity venous stasis and ulceration to the right lower extremity admitted to the hospital with weakness and some mental status changes On today's evaluation that is 01/03/2023 , the patient denies having any fever or chills, the patient is breathing comfortably was still complaining of feeling weak no chest pain or shortness of breath occasional cough denies any worsening pain to lower extremity and no diarrhea Objective - Vital Signs Vital signs: Vital Signs Temp 98.1 F 01/03/23 08:00 Pulse 69 01/03/23 08:00 Resp 18 01/03/23 08:00 BP 105/52 01/03/23 08:00 Pulse Ox 98 01/03/23 09:05 FiO2 Intake & Output 01/02/23 01/03/23 01/03/23 18:59 06:59 18:59 Intake Total 540 Output Total 900 1475 Balance -360 -1475 Intake: Oral 540 Output: Urine 900 1475 Other: Voiding Method Urinal Urinal # Voids 1 - Exam GENERAL DESCRIPTION: An elderly male up in bed in no distress RESPIRATORY SYSTEM: Unlabored breathing , decreased breath sounds at bases HEART: S1 S2 regular rate and rhythm , ABDOMEN: Soft , no tenderness EXTREMITIES: Bilateral lower extremity swelling currently wrapped No drainage on the dressing - Labs CBC & Chem 7: 01/03/23 06:24 01/03/23 06:24 Labs: Abnormal Lab Results - Last 24 Hours (Table) 01/02/23 01/02/23 01/02/23 Range/Units 12:43 17:42 20:45 Hgb (13.0-17.5) gm/dL Sodium (137-145) mmol/L Potassium (3.5-5.1) mmol/L BUN (9-20) mg/dL Creatinine (0.66-1.25) mg/dL Glucose (74-99) mg/dL POC Glucose (mg/dL) 170 H 188 H 267 H (70-110) mg/dL Calcium (8.4-10.2) mg/dL 01/03/23 01/03/23 01/03/23 Range/Units 06:02 06:24 06:24 Hgb 12.8 L (13.0-17.5) gm/dL Sodium 135 L (137-145) mmol/L Potassium 5.2 H (3.5-5.1) mmol/L BUN 50 H (9-20) mg/dL Creatinine 1.44 H (0.66-1.25) mg/dL Glucose 149 H (74-99) mg/dL POC Glucose (mg/dL) 147 H (70-110) mg/dL Calcium 8.0 L (8.4-10.2) mg/dL 01/03/23 Range/Units 07:53 Hgb (13.0-17.5) gm/dL Sodium (137-145) mmol/L Potassium (3.5-5.1) mmol/L BUN (9-20) mg/dL Creatinine (0.66-1.25) mg/dL Glucose (74-99) mg/dL POC Glucose (mg/dL) 141 H (70-110) mg/dL Calcium (8.4-10.2) mg/dL Microbiology - Last 24 Hours (Table) 01/01/23 23:15 Gram Stain - Preliminary Leg - Right Assessment and Plan (1) Cellulitis Current Visit: Yes Status: Acute Code(s): L03.90 - CELLULITIS, UNSPECIFIED SNOMED Code(s): 568377401 (2) Type 2 diabetes mellitus with other skin ulcer Current Visit: No Status: Acute Code(s): E11.622 - TYPE 2 DIABETES MELLITUS WITH OTHER SKIN ULCER; L98.499 - NON-PRESSURE CHRONIC ULCER OF SKIN OF SITES W UNSP SEVERITY SNOMED Code(s): 701334031 Plan: 1patient with evidence of bilateral lower extremity swelling possibly from venous stasis with evidence of ulceration to the right lower extremity with minimal slough tissue and some surrounding redness and a possible component of cellulitis patient however is not febrile does not look toxic no elevated white count. 2patient with elevated creatinine high risk of nephrotoxicity from vancomycin 3-local wound care with Medihoney followed by moist dressing change daily along with Andrea wrap to keep the swelling down 6 patient to continue with Unasyn 3 g every 8 hours for the right lower extremity cellulitis, with a plan to finish therapy with oral Augmentin Time with Patient: Less than 30
[2023-01-03] MEDS ORDERED: CALAMINE/ZINC OXIDE LOTION 177 ML BTL TOPICAL PRN (14:36)
[2023-01-03] MEDS: diphenhydrAMINE 25 MG CAP PO PRN ×2 (14:39→23:42)
--- NOTE | 2023-01-03 17:10 | P.PN ---
Progress Note - Text Progress Note Date: 01/03/23 Chief Complaint: Altered mental status This is a pleasant 67-year-old patient, follows with Dr. Emmie renteria. chronic stable medical conditions include atrial fibrillation, diabetes mellitus type 2, hyperlipidemia, hypertension, obstructive sleep apnea, basal cell carcinoma, depression. Patient is in the hospital recently from December 13 through December 18.-Had then presented with a large blister on the right lower extremity that are broken down with resulting cellulitis. He was discharged on Augmentin for 10 days. Patient has now been sent in for altered mental status. Has been feeling a bit weak and tired. Still has some cellulitis in the right lower extremity. Does use a walker. He'll 3 this morning. Appetite is fair. Patient's creatinine was noted to be 1.67. It was 1.17 and patient was discharged. Patient has chronic swelling in the lower extremity, right greater than left. No shortness of breath. Able to lie flat. No orthopnea. No fever no chills. January 03: Comfortable. No new issues. Eating well. Sitting edge of the bed. Spoke to social work associate. Pending authorization. Spoke to ID. Change to Augmentin. Active Medications Acetaminophen (Acetaminophen Tab 325 Mg Tab) 650 mg PO Q6HR PRN PRN Reason: Mild Pain or Fever > 100.5 Hydrocodone Bitart/Acetaminophen (Hydrocodone/Apap 5-325mg 1 Each Tab) 1 each PO Q6H PRN PRN Reason: Pain Apixaban (Apixaban 5 Mg Tab) 5 mg PO BID [facility]; Protocol Last Admin: 01/03/23 08:15 Dose: 5 mg Atorvastatin Calcium (Atorvastatin 10 Mg Tab) 10 mg PO DAILY [facility] Last Admin: 01/03/23 08:15 Dose: 10 mg Calamine (Calamine/Zinc Oxide Lotion 177 Ml Btl) 1 applic TOPICAL BID PRN; Protocol PRN Reason: Skin Irritation Carvedilol (Carvedilol 12.5 Mg Tab) 25 mg PO BID-W/MEALS [facility] Last Admin: 01/03/23 06:31 Dose: 25 mg Cholecalciferol (Cholecalciferol 25 Mcg (1000 Iu) Tablet) 25 mcg PO DAILY [facility] Last Admin: 01/03/23 08:15 Dose: 25 mcg Dextrose/Water (Dextrose 50% Syringe 50 Ml) 25 ml IVP PER PROTOCOL PRN; Protocol PRN Reason: Hypoglycemia Dextrose/Water (Dextrose 50% Syringe 50 Ml) 50 ml IVP PER PROTOCOL PRN; Protocol PRN Reason: Hypoglycemia Dextrose/Water (Dextrose 50% Syringe 50 Ml) 25 ml IVP PER PROTOCOL PRN; Protocol PRN Reason: Hypoglycemia Dextrose/Water (Dextrose 50% Syringe 50 Ml) 50 ml IVP PER PROTOCOL PRN; Protocol PRN Reason: Hypoglycemia Diphenhydramine HCl (Diphenhydramine 25 Mg Cap) 25 mg PO QID PRN PRN Reason: Itching Last Admin: 01/03/23 14:39 Dose: 25 mg Ferrous Sulfate (Ferrous Sulfate 325 Mg Tab) 325 mg PO [facility] Last Admin: 01/02/23 20:43 Dose: 325 mg Fluoxetine HCl (Fluoxetine Hcl 20 Mg Cap) 20 mg PO DAILY [facility] Last Admin: 01/03/23 08:15 Dose: 20 mg Sodium Chloride (Saline 0.9%) 1,000 mls @ 75 mls/hr IV .[id number] [facility] Last Admin: 01/03/23 13:38 Dose: 75 mls/hr Ampicillin Sodium/Sulbactam (Sodium 3 gm/ Sodium Chloride) 100 mls @ 200 mls/hr IVPB Q6HR [facility]; Protocol Last Admin: 01/03/23 12:29 Dose: 200 mls/hr Insulin Aspart (Insulin Aspart (Novolog) 100 Unit/Ml Vial) 0 unit SQ AC-TID [facility]; Protocol Last Admin: 01/03/23 13:35 Dose: 4 unit Insulin Detemir (Insulin Detemir (Levemir) 100 Unit/Ml Syr) 24 unit SQ [facility] Last Admin: 01/02/23 20:43 Dose: 24 unit Naloxone HCl (Naloxone 0.4 Mg/Ml 1 Ml Vial) 0.2 mg IV Q2M PRN PRN Reason: Opioid Reversal Testosterone [ Androgel 1.62% Gel Packet] 2.5 Gm Packet 2 packet TOPICAL DAILY [facility] Last Admin: 01/03/23 08:15 Dose: Not Given Ondansetron HCl (Ondansetron 4 Mg/2 Ml Vial) 4 mg IVP Q8HR PRN PRN Reason: Nausea And Vomiting Tamsulosin HCl (Tamsulosin 0.4 Mg Cap.Er.24h) 0.4 mg PO PC-SUPPER [facility] Last Admin: 01/02/23 17:57 Dose: 0.4 mg Tramadol HCl (Tramadol 50 Mg Tab) 50 mg PO QID PRN PRN Reason: Pain Last Admin: 01/02/23 02:24 Dose: 50 mg Past medical history to include: Atrial fibrillation, diabetes mellitus, hyperlipidemia, hypertension, obstructive sleep apnea, heart murmur depression Social history: No smoking or alcohol. Lives alone Physical examination: VITAL SIGNS: 97.9, 69, 16, 156/77, 96% room air GENERAL: BMI 42.2, sitting at edge of the bed EYES: Pupils equal. Conjunctiva normal. HEENT: External appearance of nose and ears normal, oral cavity grossly normal. NECK: JVD not raised; masses not palpable. HEART: First and second heart sounds are normal; no edema. LUNGS: Respiratory rate increased; clear to auscultation. ABDOMEN: Soft, nontender, liver spleen not palpable, no masses palpable. PSYCH: Alert and oriented x3; mood and affect a bit anxiousl. MUSCULOSKELETAL:No Clubbing/cyanosis;muscles-grossly intact EXTREMITY: Swelling of the right lower extremity greater than compared to left. Large raw area of skin breakdown on the medial aspect of the right lower leg. Some symptoms with surrounding cellulitis. Small areas of superficial wound on the right lower extremity. INVESTIGATIONS, reviewed in the clinical context: January 03: White count 7.3 potassium 5.2 BUN 50 creatinine 1.44 January 01: WBC 6.6 globin 12.3 platelets 104 potassium 5.1 BUN 58 creatinine 1.67 EKG tracing personally reviewed by me-normal sinus rhythm. Nonspecific T-wave Chest x-ray film personally reviewed by me-portable. Underpenetrated. Nothing acute CT brain: Unspecified. Chronic changes Urine drug screen positive for opiates Previous labs December 17: Potassium 4.8 BUN 45 creatinine 1.17 Doppler ultrasound right lower extremity: Negative for DVT Chest x-ray film personally reviewed by me-a bit underpenetrated Assessment and plan: -Possible acute metabolic encephalopathy from worsening renal function. Patient already doing better this morning. Compared to yesterday. -Acute on chronic cellulitis right lower extremity, associated large blister that broke down. Weeks ago chronic edema of the right lower extremity, right greater than left. She has received a course of Augmentin recently. ID consulted -Acute kidney injury, prerenal from decreased oral intake. Admission creatinine 67. On December 17 was: 1.17. Hold Cozaar -Morbid obesity BMI with a 2.2 Weight loss measures -Diabetes mellitus type 2, chronically on insulin, uncontrolled with hyperglycemia. Follow Accu-Cheks and sliding scale. Levemir -Depression Prozac 20 mg -Hyperlipidemia Lipitor 10 mg a day -Urine outflow obstruction likely BPH Flomax 0.4 mg a day -Obstructive sleep apnea, wears CPAP at home Continue home CPAP -Essential hypertension Coreg 25 mg twice a day, Cozaar-hold -Paroxysmal atrial fibrillation, currently in sinus rhythm Coreg. Eliquis -Full code Per ID changed to Augmentin. Other medications to continue. Pending placement. None available today.
[2023-01-03 17:22] LABS: Glucose,Whole Blood 257 mg/dL (70-110)
[2023-01-03] MEDS: TAMSULOSIN 0.4 MG CAP.ER.24H PO SCH (17:55)
[2023-01-03 20:41] LABS: Glucose,Whole Blood 174 mg/dL (70-110)
[2023-01-03] MEDS: INSULIN DETEMIR (LEVEMIR) 100 UNIT/ML SYR SQ SCH (20:48)
[2023-01-03] MEDS: FERROUS SULFATE 325 MG TAB PO SCH (20:48)
[2023-01-04] MEDS: SODIUM CHLORIDE 0.9% 1,000 ML IV SCH (05:08)
[2023-01-04 05:47] LABS: Glucose,Whole Blood 134 mg/dL (70-110)
[2023-01-04] MEDS: INSULIN ASPART (NovoLOG) 100 UNIT/ML VIAL SQ SCH ×2 (05:47→13:56)
[2023-01-04 05:53] LABS: African American GFR (CKD) 66 (>60 ml/min/1.73 sqM); Anion Gap 6 mmol/L; Blood Urea Nitrogen 46 mg/dL (9-20); Carbon Dioxide 23 mmol/L (22-30); Chloride 107 mmol/L (98-107); Glucose 143 mg/dL (74-99); Non-African American GFR(CKD) 57 (>60 ml/min/1.73 sqM); Potassium 4.9 mmol/L (3.5-5.1); Sodium 136 mmol/L (137-145)
[2023-01-04] MEDS: carvediloL 12.5 MG TAB PO SCH (05:58)
[2023-01-04 08:18] VITALS: RESP 16
[2023-01-04] MEDS: CHOLECALCIFEROL 25 MCG (1000 IU) TABLET PO SCH (08:51)
[2023-01-04] MEDS: ATORVASTATIN 10 MG TAB PO SCH (08:51)
[2023-01-04] MEDS: FLUoxetine HCL 20 MG CAP PO SCH (08:51)
[2023-01-04] MEDS: TESTOSTERONE TOPICAL SCH (08:51)
[2023-01-04] MEDS: APIXABAN 5 MG TAB PO SCH (08:51)
[2023-01-04] MEDS ORDERED: AMOXIC-POT CLAV 875-125MG 1 EACH TAB PO SCH (09:00)
[2023-01-04] MEDS ORDERED: DOXYCYCLINE 100 MG CAP PO SCH (09:00)
--- NOTE | 2023-01-04 10:57 | P.PN ---
Subjective Progress Note Date: 01/04/23 Principal diagnosis: Right leg wound and cellulitis Patient is a 67-year-old male with multiple comorbidities did have a bilateral lower extremity venous stasis and ulceration to the right lower extremity admitted to the hospital with weakness and some mental status changes On today's evaluation that is 01/04/2023 , the patient remains to be afebrile, the patient is breathing comfortably on room air, feeling better no chest pain shortness with a cough no abdominal pain or diarrhea no pain to the lower simply the patient has developed a rash complaining of itching no tongue swelling or wheezing Objective - Vital Signs Vital signs: Vital Signs Temp 98.6 F 01/04/23 02:00 Pulse 70 01/04/23 02:00 Resp 18 01/04/23 02:00 BP 125/68 01/04/23 02:00 Pulse Ox 93 L 01/04/23 02:00 FiO2 Intake & Output 01/03/23 01/04/23 01/04/23 18:59 06:59 18:59 Intake Total 236 118 Output Total 675 Balance 236 -557 Intake: Oral 236 118 Output: Urine 675 Other: Voiding Method Urinal Urinal # Voids 1 # Bowel Movements 1 - Exam GENERAL DESCRIPTION: An elderly male up in bed in no distress RESPIRATORY SYSTEM: Unlabored breathing , decreased breath sounds at bases HEART: S1 S2 regular rate and rhythm , ABDOMEN: Soft , no tenderness EXTREMITIES: Bilateral lower extremity swelling currently wrapped No drainage on the dressing Skin diffuse macular papular rash - Labs CBC & Chem 7: 01/03/23 06:24 01/04/23 05:18 Labs: Abnormal Lab Results - Last 24 Hours (Table) 01/03/23 01/03/23 01/03/23 Range/Units 06:24 07:53 12:18 Sodium (137-145) mmol/L BUN (9-20) mg/dL Creatinine (0.66-1.25) mg/dL Glucose (74-99) mg/dL POC Glucose (mg/dL) 141 H 220 H (70-110) mg/dL Hemoglobin A1c 7.2 H (<=6.0) % Calcium (8.4-10.2) mg/dL 01/03/23 01/03/23 01/04/23 Range/Units 17:21 20:39 05:18 Sodium 136 L (137-145) mmol/L BUN 46 H (9-20) mg/dL Creatinine 1.28 H (0.66-1.25) mg/dL Glucose 143 H (74-99) mg/dL POC Glucose (mg/dL) 257 H 174 H (70-110) mg/dL Hemoglobin A1c (<=6.0) % Calcium 8.0 L (8.4-10.2) mg/dL 01/04/23 Range/Units 05:44 Sodium (137-145) mmol/L BUN (9-20) mg/dL Creatinine (0.66-1.25) mg/dL Glucose (74-99) mg/dL POC Glucose (mg/dL) 134 H (70-110) mg/dL Hemoglobin A1c (<=6.0) % Calcium (8.4-10.2) mg/dL Microbiology - Last 24 Hours (Table) 01/01/23 23:15 Gram Stain - Preliminary Leg - Right Assessment and Plan (1) Cellulitis Current Visit: Yes Status: Acute Code(s): L03.90 - CELLULITIS, UNSPECIFIED SNOMED Code(s): 962969730 (2) Type 2 diabetes mellitus with other skin ulcer Current Visit: No Status: Acute Code(s): E11.622 - TYPE 2 DIABETES MELLITUS WITH OTHER SKIN ULCER; L98.499 - NON-PRESSURE CHRONIC ULCER OF SKIN OF SITES W UNSP SEVERITY SNOMED Code(s): 585941345 Plan: 1patient with evidence of bilateral lower extremity swelling possibly from venous stasis with evidence of ulceration to the right lower extremity with minimal slough tissue and some surrounding redness and a possible component of cellulitis patient however is not febrile does not look toxic no elevated white count. 2patient with elevated creatinine high risk of nephrotoxicity from vancomycin 3-local wound care with Medihoney followed by moist dressing change daily along with Andrea wrap to keep the swelling down 6 patient has developed a rash likely related to Augmentin which will be discontinued patient was started on doxycycline 100 mg twice a day which can be continued discharge for 10 days Time with Patient: Less than 30
--- NOTE | 2023-01-04 11:37 | P.DS ---
Providers Date of admission: 01/02/23 00:35 Expected date of discharge: 01/04/23 Attending physician: Catalino Banks Consults: 01/02/23 00:34 Consult Physician Routine Consulting Provider: Ander Davila Consult Reason/Comments: leg wound Do you want consulting provider notified?: Yes Primary care physician: Emmie Renteria [facility] Course: Chief Complaint: Altered mental status This is a pleasant 67-year-old patient, follows with Dr. Emmie renteria. chronic stable medical conditions include atrial fibrillation, diabetes mellitus type 2, hyperlipidemia, hypertension, obstructive sleep apnea, basal cell carcinoma, depression. Patient is in the hospital recently from December 13 through December 18.-Had then presented with a large blister on the right lower extremity that are broken down with resulting cellulitis. He was discharged on Augmentin for 10 days. Patient has now been sent in for altered mental status. Has been feeling a bit weak and tired. Still has some cellulitis in the right lower extremity. Does use a walker. He'll 3 this morning. Appetite is fair. Patient's creatinine was noted to be 1.67. It was 1.17 and patient was discharged. Patient has chronic swelling in the lower extremity, right greater than left. No shortness of breath. Able to lie flat. No orthopnea. No fever no chills. January 03: Comfortable. No new issues. Eating well. Sitting edge of the bed. Spoke to case management social worker. Pending authorization. Spoke to ID. Change to Augmentin. January 04: Patient has some rash on Augmentin. No wheezing. No stridor. No sw elling. ID has changed the Augmentin to doxycycline to continue for 10 days. Discussed with casework manager. Bed available. Discussion and discharge planning more than 35 minutes Past medical history to include: Atrial fibrillation, diabetes mellitus, hyperlipidemia, hypertension, obstructive sleep apnea, heart murmur depression Social history: No smoking or alcohol. Lives alone Physical examination: VITAL SIGNS: 97.5, 61, 16, 100/59, 96% room air GENERAL: BMI 42.2, comfortable EYES: Pupils equal. Conjunctiva normal. HEENT: External appearance of nose and ears normal, oral cavity grossly normal. NECK: JVD not raised; masses not palpable. HEART: First and second heart sounds are normal; no edema. LUNGS: Respiratory rate increased; clear to auscultation. ABDOMEN: Soft, nontender, liver spleen not palpable, no masses palpable. PSYCH: Alert and oriented x3; mood and affect a bit anxiousl. MUSCULOSKELETAL:No Clubbing/cyanosis;muscles-grossly intact EXTREMITY: Swelling of the right lower extremity greater than compared to left. Large raw area of skin breakdown on the medial aspect of the right lower leg. Some symptoms with surrounding cellulitis. Small areas of superficial wound on the right lower extremity. INVESTIGATIONS, reviewed in the clinical context: January 04: Potassium 4.9 BUN 46 creatinine 1.28 January 01: WBC 6.6 globin 12.3 platelets 104 potassium 5.1 BUN 58 creatinine 1.67 EKG tracing personally reviewed by me-normal sinus rhythm. Nonspecific T-wave Chest x-ray film personally reviewed by me-portable. Underpenetrated. Nothing acute CT brain: Unspecified. Chronic changes Urine drug screen positive for opiates Previous labs December 17: Potassium 4.8 BUN 45 creatinine 1.17 Doppler ultrasound right lower extremity: Negative for DVT Chest x-ray film personally reviewed by me-a bit underpenetrated Assessment and plan: -Possible acute metabolic encephalopathy from worsening renal function.: Improved -Acute on chronic cellulitis right lower extremity, associated large blister that broke down. Weeks ago chronic edema of the right lower extremity, right greater than left. Doxycycline 100 mg twice a day for 10 days -Acute kidney injury, prerenal from decreased oral intake. Admission creatinine 1.67. On December 17 was: 1.17. Stop Cozaar and Lasix. -Chronic kidney disease stage III from diabetic nephropathy and nephrosclerosis December 17 creatinine was 1.17 -Morbid obesity BMI with a 2.2 Weight loss measures -Diabetes mellitus type 2, chronically on insulin, uncontrolled with hyperglycemia. Follow Accu-Cheks and sliding scale. Levemir -Depression Prozac 20 mg -Hyperlipidemia Lipitor 10 mg a day -Urine outflow obstruction likely BPH Flomax 0.4 mg a day -Obstructive sleep apnea, wears CPAP at home Continue home CPAP -Essential hypertension Coreg 25 mg twice a day, Cozaar-hold -Paroxysmal atrial fibrillation, currently in sinus rhythm CoregGage Cornell -Full code Disposition: [facility] Labs: CBC/CMP in 5 days Diet: Diabetic with renal diet. Fluid restriction 1800 mL a day Plan - Discharge Summary New Discharge Prescriptions: New Calamine/Zinc Oxide Lotion [Calamine Lotion] 1 applic TOPICAL BID PRN each PRN Reason: Skin Irritation Doxycycline [Vibramycin] 100 mg PO BID #20 cap Acetaminophen Tab [Tylenol] 650 mg PO Q6HR PRN tab PRN Reason: Mild Pain Or Fever > 100.5 Continue Apixaban [Eliquis] 5 mg PO BID FLUoxetine HCL [PROzac] 20 mg PO DAILY Atorvastatin [Lipitor] 10 mg PO DAILY tab Losartan [Cozaar] 25 mg PO DAILY #0 Vitamin B-12 100mcg 1 tab PO DAILY Furosemide [Lasix] 20 mg PO DAILY HYDROcodone/APAP 5-325MG [[place] 5-325] 1 tab PO Q6H PRN PRN Reason: Pain Tamsulosin HCl [Flomax] 0.4 mg PO DAILY Acetaminophen Tab [Tylenol] 500 mg PO Q6HR PRN PRN Reason: Pain Insulin Lispro [humaLOG Kwikpen] See Protocol SQ TID-W/MEALS Insulin Glargine,Hum.rec.anlog [Lantus Solostar Pen] 30 units SQ HS Ferrous Sulfate [Iron (65 MG Elemental)] 325 mg PO HS Cholecalciferol [Vitamin D3 (25 Mcg = 1000 Iu)] 25 mcg PO DAILY carvediloL [Coreg] 25 mg PO BID Testosterone [Androgel 1.62% Gel Packet] 2 packet TOPICAL DAILY Discharge Medication List Apixaban [Eliquis] 5 mg PO BID 04/11/17 [History] Cholecalciferol [Vitamin D3 (25 Mcg = 1000 Iu)] 25 mcg PO DAILY 12/12/22 [History] FLUoxetine HCL [PROzac] 20 mg PO DAILY 12/12/22 [History] Ferrous Sulfate [Iron (65 MG Elemental)] 325 mg PO HS 12/12/22 [History] Insulin Glargine,Hum.rec.anlog [Lantus Solostar Pen] 30 units SQ HS 12/12/22 [History] Insulin Lispro [humaLOG Kwikpen] See Protocol SQ TID-W/MEALS 12/12/22 [History] Testosterone [Androgel 1.62% Gel Packet] 2 packet TOPICAL DAILY 12/12/22 [History] carvediloL [Coreg] 25 mg PO BID 12/12/22 [History] Atorvastatin [Lipitor] 10 mg PO DAILY tab 12/17/22 [Rx] Acetaminophen Tab [Tylenol] 500 mg PO Q6HR PRN 01/02/23 [History] HYDROcodone/APAP 5-325MG [[place] 5-325] 1 tab PO Q6H PRN 01/02/23 [History] Tamsulosin HCl [Flomax] 0.4 mg PO DAILY 01/02/23 [History] Vitamin B-12 100mcg 1 tab PO DAILY 01/02/23 [History] Acetaminophen Tab [Tylenol] 650 mg PO Q6HR PRN tab 01/03/23 [Rx] Calamine/Zinc Oxide Lotion [Calamine Lotion] 1 applic TOPICAL BID PRN each 01/04/23 [Rx] Doxycycline [Vibramycin] 100 mg PO BID #20 cap 01/04/23 [Rx] Follow up Appointment(s)/Referral(s): Emmie Renteria DO [Primary Care Provider] - 1 Week
[2023-01-04 12:13] LABS: Glucose,Whole Blood 197 mg/dL (70-110)
[2023-01-04 15:20] VITALS: BP 131/79; PULSE 71; TEMP 98.4
== END 2023-01-04 14:40 ==
LOC: EC 22:02 → 4SSUR 01-02 00:35 → INTOOBSV 01-02 00:35 → 6NMEDSUR 01-02 00:54
PROVIDERS: ADMIT Hospitalist; ATTEND Hospitalist
DX: R41.82 Altered mental status, unspecified (principal); I12.9 Hypertensive chronic kidney disease with stage 1 through stage 4 chronic kidney disease, or unspecified chronic kidney disease; E11.22 Type 2 diabetes mellitus with diabetic chronic kidney disease; N18.30 Chronic kidney disease, stage 3 unspecified; F32.A Depression, unspecified; E78.5 Hyperlipidemia, unspecified; R01.1 Cardiac murmur, unspecified; N13.9 Obstructive and reflux uropathy, unspecified; G47.33 Obstructive sleep apnea (adult) (pediatric); I48.91 Unspecified atrial fibrillation; E66.01 Morbid (severe) obesity due to excess calories; Z68.41 Body mass index [BMI] 40.0-44.9, adult; G47.30 Sleep apnea, unspecified; Z85.828 Personal history of other malignant neoplasm of skin; Z98.41 Cataract extraction status, right eye; Z83.3 Family history of diabetes mellitus; Z79.01 Long term (current) use of anticoagulants; Z79.899 Other long term (current) drug therapy; Z79.4 Long term (current) use of insulin; Z88.8 Allergy status to other drugs, medicaments and biological substances
CPT/HCPCS: 96366 ×2; 96367; 96368; 96361; 96365; 99285; 36415; 94760 ×2; 93005; 97162; 97166; 80053; 80048 ×2; 82140; 83605; 84484; 85025 ×2; 85610; 85730; 81003; 87040; 80306; 80320; 87070; 87205; 87075; 83036; 71045; 70450; G0378 ×2; J3370; J0295 ×2

== ENCOUNTER 2023-01-08 19:12 | Emergency (ER) | payer OTHER ==
[2023-01-08 19:33] VITALS: TEMP 97.6
--- NOTE | 2023-01-08 20:59 | CT ---
EXAMINATION TYPE: CT brain cspine wo con, CT facial bones wo con CT DLP: 1617.4 mGycm, Automated exposure control for dose reduction was used. DATE OF EXAM: 01/08/2023 8:41 PM COMPARISON: None. CLINICAL INDICATION:Male, 67 years old with history of head injury, fall from standing; head injury, fall from standing TECHNIQUE: Brain: Multiple axial CT images of the brain were obtained without IV contrast. Cspine: Axial CT images from the skull base to the inferior aspect of T2 we obtained without intraven ous contrast. Coronal and sagittal reformatted images were also reviewed. Facial: And axial imaging of the facial structures with sagittal and coronal reformats in bone and so ft tissue windows. FINDINGS: Brain: Extra-axial spaces: No abnormal extra-axial fluid collections. Ventricular system: Within normal limits Cerebral parenchyma: No acute intraparenchymal hemorrhage or mass effect. The chun-white junction is well differentiated. Cerebellum: Unremarkable. Mass effect: No evidence of midline shift. Intracranial vasculature: Atherosclerotic calcifications of the intracranial vessels. Soft tissues: Normal. Calvarium/osseous structures: No depressed skull fracture. Cortically irregularity of the nasal bridg e. Paranasal sinuses and mastoid air cells: Clear. Visualized orbits: Bilateral aphakia Cervical spine: Fracture: None. Osseous structures: Multilevel degenerative disc disease changes with endplate spurring and disc oste ophyte complex's. Ankylosis of the lateral facets of C3 and C4 on the left. Vertebral alignment: Grade 1 anterolisthesis of C3 on C4 and C2 and C3 Spinal canal/Neural Foramina: Disc osteophyte complexes at C4-C5 and C5-C6 with at least mild spinal canal stenosis. No evidence for significant neural foraminal stenosis. Neck soft tissues: Prevertebral soft tissues are within normal limits. Other: The airway is patent. The lung apices are clear. Atherosclerosis at the carotid bifurcations. IMPRESSION: 1. No acute intracranial process. 2. Nonspecific white matter changes, likely secondary to chronic small vessel ischemic disease. 3. No evidence of cervical spine fracture. 4. Moderate to severe multilevel degenerative disc disease. 5. Cortical irregularity of the nasal bridge left greater than right carotid point tenderness for fr acture. No additional facial fracture definitely visualized.
[2023-01-08 21:55] VITALS: BP 148/66; PULSE 68; RESP 18
--- NOTE | 2023-01-08 21:55 | ED ---
Fall HPI - General Chief Complaint: Fall Stated Complaint: Fall Time Seen by Provider: 01/08/23 20:02 Source: EMS Mode of arrival: EMS - History of Present Illness Initial Comments: Patient is a 67-year-old male brought in from intermediate for evaluation post fall. Patient states that he fell from a standing position while trying to bend over and picks him off the floor. He hit the right side of his face on his nightstand. She denies loss of consciousness. He is on eliquis. He denies headache, vision or hearing changes, numbness, tingling, weakness, nausea, vomit ing, dizziness, chest pain, difficulty breathing, extremity pain, difficulty with extraocular motions. - Related Data Home Medications Medication Instructions Recorded Confirmed Apixaban [Eliquis] 5 mg PO BID 04/11/17 01/02/23 Cholecalciferol [Vitamin D3 (25 25 mcg PO DAILY 12/12/22 01/02/23 Mcg = 1000 Iu)] FLUoxetine HCL [PROzac] 20 mg PO DAILY 12/12/22 01/02/23 Ferrous Sulfate [Iron (65 MG 325 mg PO HS 12/12/22 01/02/23 Elemental)] Insulin Glargine,Hum.rec.anlog 30 units SQ HS 12/12/22 01/02/23 [Lantus Solostar Pen] Insulin Lispro [humaLOG Kwikpen] See Protocol SQ TID-W/MEALS 12/12/22 01/02/23 Testosterone [Androgel 1.62% Gel 2 packet TOPICAL DAILY 12/12/22 01/02/23 Packet] carvediloL [Coreg] 25 mg PO BID 12/12/22 01/02/23 Acetaminophen Tab [Tylenol] 500 mg PO Q6HR PRN 01/02/23 01/02/23 Tamsulosin HCl [Flomax] 0.4 mg PO DAILY 01/02/23 01/02/23 Vitamin B-12 100mcg 1 tab PO DAILY 01/02/23 01/02/23 Previous Rx's Medication Instructions Recorded Atorvastatin [Lipitor] 10 mg PO DAILY tab 12/17/22 Acetaminophen Tab [Tylenol] 650 mg PO Q6HR PRN tab 01/03/23 Calamine/Zinc Oxide Lotion 1 applic TOPICAL BID PRN each 01/04/23 [Calamine Lotion] Doxycycline [Vibramycin] 100 mg PO BID #20 cap 01/04/23 HYDROcodone/APAP 5-325MG [[place] 1 tab PO Q6H PRN #12 tab 01/04/23 5-325] Allergies Allergy/AdvReac Type Severity Reaction Status Date / Time famotidine [From Pepcid] Allergy Unknown Verified 01/02/23 08:28 lisinopril [From Prinivil] AdvReac Cough Verified 01/02/23 08:28 Review of Systems ROS Statement: Those systems with pertinent positive or pertinent negative responses have been documented in the HPI. ROS Other: All systems not noted in ROS Statement are negative. Past Medical History Past Medical History: Atrial Fibrillation, Cancer, Diabetes Mellitus, Hyperlipidemia, Hypertension, Sleep Apnea/CPAP/BIPAP Additional Past Medical History / Comment(s): Basal cell carcinoma, Heart murmur History of Any Multi-Drug Resistant Organisms: None Reported Past Surgical History: No Surgical Hx Reported Additional Past Surgical History / Comment(s): Cataract surgery right eye Past Anesthesia/Blood Transfusion Reactions: No Reported Reaction Past Psychological History: Depression Smoking Status: Never smoker Past Alcohol Use History: None Reported Past Drug Use History: None Reported - Past Family History Mother Family Medical History: Diabetes Mellitus General Exam Limitations: no limitations General appearance: alert, in no apparent distress Head exam: Present: atraumatic, normocephalic, normal inspection Eye exam: Present: normal appearance, PERRL, EOMI. Absent: scleral icterus, periorbital swelling, periorbital tenderness Pupils: Present: normal accommodation Neck exam: Present: normal inspection, full ROM. Absent: tenderness Respiratory exam: Present: normal lung sounds bilaterally. Absent: respiratory distress, wheezes, rales, rhonchi, stridor Cardiovascular Exam: Present: regular rate, normal rhythm, normal heart sounds. Absent: systolic murmur, diastolic murmur, rubs, gallop, clicks Neurological exam: Present: alert, oriented X3, CN II-XII intact Expanded Speech: Present: fluid speech Cranial nerves: EOM's Intact: Normal Eye Response: (4) open spontaneously Motor Response: (6) obeys commands Verbal Response: (5) oriented Valentín Total: 15 Psychiatric exam: Present: normal affect, normal mood Skin exam: Present: warm, dry, intact, normal color. Absent: rash Course Vital Signs 01/08/23 01/08/23 19:25 21:50 Temperature 97.6 F Pulse Rate 60 68 Respiratory 20 18 Rate Blood Pressure 151/87 148/66 O2 Sat by Pulse 97 94 L Oximetry Medical Decision Making - Medical Decision Making Was pt. sent in by a medical professional or institution (, PA, MAIL HANDLER ASSISTANT, urgent care, hospital, or intermediate...) When possible be specific @ -[facility] Did you speak to anyone other than the patient for history (EMS, parent, family, police, friend...)? What history was obtained from this source @ -No Did you review nursing and triage notes (agree or disagree)? Why? @ -I reviewed and agree with nursing and triage notes Were old charts reviewed (outside hosp., previous admission, EMS record, old EKG, old radiological studies, urgent care reports/EKG's, intermediate records)? Report findings @ -No old charts were reviewed Differential Diagnosis (chest pain, altered mental status, abdominal pain women, abdominal pain men, vaginal bleeding, weakness, fever, dyspnea, syncope, headache, dizziness, GI bleed, back pain, seizure, CVA, palpatations, mental health, musculoskeletal)? @ -Differential includes intracranial hemorrhage, facial bone fracture, blunt head trauma, this is not an all inclusive list EKG interpreted by me (3pts min.). @ -As above X-rays interpreted by me (1pt min.). @ -None done CT interpreted by me (1pt min.). @ -CT shows no acute intracranial process or cervical spine fracture. There is a cortical irregularity of the nasal bridge left greater than right. (This does not correlate with the clinical presentation as patient has no point tenderness) U/S interpreted by me (1pt. min.). @ -None done What testing was considered but not performed or refused? (CT, X-rays, U/S, labs)? Why? @ -None What meds were considered but not given or refused? Why? @ -None Did you discuss the management of the patient with other professionals (professionals i.e. , PATRICIA, MAIL HANDLER ASSISTANT, lab, RT, psych nurse, social science instructor, corporate sales trainer, teacher, fiscal officer, welfare case worker)? Give summary @ -No Was smoking cessation discussed for >3mins.? @ -No Was critical care preformed (if so, how long)? @ -No Were there social determinants of health that impacted care today? How? (Homelessness, low income, unemployed, alcoholism, drug addiction, transportation, low edu. Level, literacy, decrease access to med. care, correction, rehab)? @ -No Was there de-escalation of care discussed even if they declined (Discuss DNR or withdrawal of care, Hospice)? DNR status @ -No What co-morbidities impacted this encounter? (DM, HTN, Smoking, COPD, CAD, Cancer, CVA, ARF, Chemo, Hep., AIDS, mental health diagnosis, sleep apnea, morbid obesity)? @ -None Was patient admitted / discharged? Hospital course, mention meds given and route, prescriptions, significant lab abnormalities, going to OR and other pertinent info. @ -67-year-old male presenting from intermediate for evaluation after a fall and injury to the face. On physical examination there are no focal neurological deficits. Patient has no point tenderness on palpation of the face. CT shows no acute intracranial process or cervical spine fracture. There is a cortical irregularity of the nasal bridge, however patient has no point tenderness to this area. Patient and family member educated on today's findings. Patient is discharged back to intermediate. Follow-up with PCP. Report back to ER with any new or worsening symptoms. Discussed return parameters and answered all questions. Patient conveyed verbal understanding and agreed to the plan. I discussed this case in detail with my attending Dr. Hall Undiagnosed new problem with uncertain prognosis? @ -No Drug Therapy requiring intensive monitoring for toxicity (Heparin, Nitro, Insulin, Cardizem)? @ -No Were any procedures done? @ -No Diagnosis/symptom? @ -Fall Acute, or Chronic, or Acute on Chronic? @ -Acute Uncomplicated (without systemic symptoms) or Complicated (systemic symptoms)? @ -Uncomplicated Side effects of treatment? @ -No Exacerbation, Progression, or Severe Exacerbation? @ -No Poses a threat to life or bodily function? How? (Chest pain, [place], [place], pneumonia, PE, COPD, DKA, ARF, appy, cholecystitis, CVA, Diverticulitis, Homicidal, Suicidal, threat to staff... and all critical care pts) @ -No Disposition Clinical Impression: Fall Disposition: HOME SELF-CARE Condition: Good Instructions (If sedation given, give patient instructions): Fall Prevention for Older Adults (ED), Head Injury (ED) Additional Instructions: Follow-up with PCP. Report back to ER with any new or worsening symptoms. Is patient prescribed a controlled substance at d/c from ED?: No Referrals: Emmie Posadas DO [Primary Care Provider] - 1-2 days Time of Disposition: 21:55
== END 2023-01-08 23:41 | disposition home or self-care (01) ==
LOC: EC 19:12
DX: R51.9 Headache, unspecified (principal); I48.91 Unspecified atrial fibrillation; E11.9 Type 2 diabetes mellitus without complications; I10 Essential (primary) hypertension; G47.39 Other sleep apnea; F32.A Depression, unspecified; Z79.4 Long term (current) use of insulin; Z79.899 Other long term (current) drug therapy; Z88.8 Allergy status to other drugs, medicaments and biological substances; W18.30XA Fall on same level, unspecified, initial encounter
CPT/HCPCS: 70450; 70486; 72125; 99284

== ENCOUNTER 2023-01-18 19:47 | Inpatient (IN) | payer MEDICARE, OTHER ==
--- NOTE | 2023-01-18 20:42 | XR ---
EXAMINATION TYPE: XR chest 1V portable DATE OF EXAM: 01/18/2023 COMPARISON: 01/01/2023 INDICATION: Acute mental status changes TECHNIQUE: Single frontal view of the chest is obtained. FINDINGS: The heart size is normal. The pulmonary vasculature is normal. The lungs are clear. IMPRESSION: 1. No acute pulmonary process.
--- NOTE | 2023-01-18 21:05 | CT ---
EXAMINATION TYPE: CT brain wo con DATE OF EXAM: 01/18/2023 COMPARISON: INDICATION: ams, hallucinating DLP: 1173.6 mGycm, Automated exposure control for dose reduction was used. CONTRAST: None CT of the brain is performed utilizing 3 mm thick sections through the posterior fossa and 3 mm thick sections through the remaining calvarium. Study is performed within 24 hours of arrival to the hosp ital. No abnormal hyperdensity is present to suggest an acute intracranial hemorrhage. No mass lesion is evident. No acute infarcts are evident. Ventricles and sulci are mildly prominent for the patient age. There is some mucosal thickening within the anterior right ethmoid air cells. Remaining paranasal sin uses and mastoid air cells included within the field clear. IMPRESSIONS: 1. Atrophy. 2. Minimal mucosal thickening within the anterior left right ethmoid air cells
--- NOTE | 2023-01-18 21:06 | ED ---
General Adult HPI - General Chief complaint: Psychiatric Symptoms Stated complaint: HALLUCINTIONS Time Seen by Provider: 01/18/23 20:05 Source: patient, EMS, RN notes reviewed, old records reviewed Mode of arrival: EMS Limitations: no limitations - History of Present Illness Initial comments: 68-year-old male presents from the correction for evaluation of confusion, hallucination. Patient is currently in the correction for rehabilitation for a right lower extremity infection. He's had some increased confusion which is intermittent as well as recent fall. He was seen in the emergency department for the fall one week ago and this patient's son states he did receive imaging of his brain. There is been improvement in the infection in the right leg according to his son. Family has noted several episodes of hallucination including visual hallucination. - Related Data Home Medications Medication Instructions Recorded Confirmed Apixaban [Eliquis] 5 mg PO BID 04/11/17 01/18/23 Cholecalciferol [Vitamin D3 (25 25 mcg PO DAILY 12/12/22 01/18/23 Mcg = 1000 Iu)] FLUoxetine HCL [PROzac] 20 mg PO DAILY 12/12/22 01/18/23 Ferrous Sulfate [Iron (65 MG 325 mg PO HS 12/12/22 01/18/23 Elemental)] Insulin Glargine,Hum.rec.anlog 30 units SQ HS 12/12/22 01/18/23 [Lantus Solostar Pen] Insulin Lispro [humaLOG Kwikpen] See Protocol SQ TID-W/MEALS 12/12/22 01/18/23 Testosterone [Androgel 1.62% Gel 2 packet TOPICAL DAILY 12/12/22 01/18/23 Packet] carvediloL [Coreg] 25 mg PO BID 12/12/22 01/18/23 Acetaminophen Tab [Tylenol] 500 mg PO Q6HR PRN 01/02/23 01/18/23 Tamsulosin HCl [Flomax] 0.4 mg PO DAILY 01/02/23 01/18/23 Vitamin B-12 100mcg 1 tab PO DAILY 01/02/23 01/18/23 hydroCHLOROthiazide [Hydrodiuril] 25 mg PO DAILY PRN 01/18/23 01/18/23 traMADol HCL 100 mg PO Q6H PRN 01/18/23 01/18/23 Previous Rx's Medication Instructions Recorded Atorvastatin [Lipitor] 10 mg PO DAILY tab 12/17/22 Allergies Allergy/AdvReac Type Severity Reaction Status Date / Time famotidine [From Pepcid] Allergy Unknown Verified 01/18/23 22:11 lisinopril [From Prinivil] AdvReac Cough Verified 01/18/23 22:11 Review of Systems ROS Statement: Those systems with pertinent positive or pertinent negative responses have been documented in the HPI. ROS Other: All systems not noted in ROS Statement are negative. Past Medical History Past Medical History: Atrial Fibrillation, Cancer, Diabetes Mellitus, Hyperlipidemia, Hypertension, Sleep Apnea/CPAP/BIPAP Additional Past Medical History / Comment(s): Basal cell carcinoma, Heart murmur History of Any Multi-Drug Resistant Organisms: None Reported Past Surgical History: No Surgical Hx Reported Additional Past Surgical History / Comment(s): Cataract surgery right eye Past Anesthesia/Blood Transfusion Reactions: No Reported Reaction Past Psychological History: Depression Smoking Status: Never smoker Past Alcohol Use History: None Reported Past Drug Use History: None Reported - Past Family History Mother Family Medical History: Diabetes Mellitus General Exam Limitations: no limitations General appearance: lethargic Head exam: Present: atraumatic, normocephalic Eye exam: Present: normal appearance, PERRL ENT exam: Present: mucous membranes dry Neck exam: Present: normal inspection. Absent: tenderness, meningismus Respiratory exam: Present: normal lung sounds bilaterally. Absent: respiratory distress, wheezes Cardiovascular Exam: Present: regular rate, normal rhythm GI/Abdominal exam: Present: soft. Absent: distended, tenderness, guarding Neurological exam: Present: alert, oriented X3, CN II-XII intact. Absent: motor sensory deficit Psychiatric exam: Present: normal affect, normal mood Skin exam: Present: warm, dry Course Vital Signs 01/18/23 19:49 Temperature 97.2 F L Pulse Rate 64 Respiratory 20 Rate Blood Pressure 141/65 O2 Sat by Pulse 97 Oximetry - Reevaluation(s) Reevaluation #1: 01/18/23 22:20 Patient has hypercarbic with a CO2 of 60 which may be contributing to his delirium and confusion. His son will bring CPAP machine tomorrow. He has been noncompliant with this for some time. Medical Decision Making - Medical Decision Making Was pt. sent in by a medical professional or institution (, PA, DEPARTMENT ASSISTANT, urgent care, hospital, or correction...) When possible be specific @ -No Did you speak to anyone other than the patient for history (EMS, parent, family, police, friend...)? What history was obtained from this source @ -[Patient's son Did you review nursing and triage notes (agree or disagree)? Why? @ -I reviewed and agree with nursing and triage notes Were old charts reviewed (outside hosp., previous admission, EMS record, old EKG, old radiological studies, urgent care reports/EKG's, correction records)? Report findings @ -No old charts were reviewed Differential Diagnosis (chest pain, altered mental status, abdominal pain women, abdominal pain men, vaginal bleeding, weakness, fever, dyspnea, syncope, headache, dizziness, GI bleed, back pain, seizure, CVA, palpatations, mental he alth, musculoskeletal)? @ -[Differential Altered Mental Status: Hypoglycemia, DKA, hypercapnia, ETOH, overdose, CO poisoning, trauma, myxedema coma, HTN encephalopathy, infection, encephalitis, psychosis, intercranial hemorrhage, hepatic encephalopathy, meningitis, CVA, this is not meant to be an all-inclusive list EKG interpreted by me (3pts min.). @Sinus bradycardia rate of 56, W[place] interval 177, QRS duration 97, QTC [address] segment elevation X-rays interpreted by me (1pt min.). @ -[Chest x-ray negative for acute cardiac primary findings CT interpreted by me (1pt min.). @ -[CT negative for acute intracranial hemorrhage or mass effect U/S interpreted by me (1pt. min.). @ -None done What testing was considered but not performed or refused? (CT, X-rays, U/S, labs)? Why? @ -None What meds were considered but not given or refused? Why? @ -None Did you discuss the management of the patient with other professionals (professionals i.e. , PATRICIA, DEPARTMENT ASSISTANT, lab, RT, psych nurse, director social, city carrier, teacher, first aid officer, supportive employment case manager)? Give summary @ -[Case discussed with Dr. hilton who will admit Was smoking cessation discussed for >3mins.? @ -No Was critical care preformed (if so, how long)? @ -No Were there social determinants of health that impacted care today? How? (Homelessness, low income, unemployed, alcoholism, drug addiction, transportation, low edu. Level, literacy, decrease access to med. care, group home, rehab)? @ -No Was there de-escalation of care discussed even if they declined (Discuss DNR or withdrawal of care, Hospice)? DNR status @ -No What co-morbidities impacted this encounter? (DM, HTN, Smoking, COPD, CAD, Can cer, CVA, ARF, Chemo, Hep., AIDS, mental health diagnosis, sleep apnea, morbid obesity)? @ -[Hypoventilation, hypertension, cellulitis Was patient admitted / discharged? Hospital course, mention meds given and route, prescriptions, significant lab abnormalities, going to OR and other pertinent info. @ -[68-year-old male with hallucination, acute delirium. Patient's vital signs are stable. He is a nonfocal exam. He has some right lower extremity cellulitis and erythema with drainage. Laboratory testing reveals hypercarbia at 16 which may be contributing. The patient is noncompliant with CPAP. He has elevated BUN which may be also contributing although this is been elevated for some time. Urinalysis pending. Patient started on IV fluid for his uremia, antibiotics for cellulitis. His son will bring his CPAP machine tomorrow. He'll be admitted to internal medicine at this time. Undiagnosed new problem with uncertain prognosis? @ -No Drug Therapy requiring intensive monitoring for toxicity (Heparin, Nitro, Insulin, Cardizem)? @ -No Were any procedures done? @ -No Diagnosis/symptom? @ -[Delirium, hypercarbia, uremia Acute, or Chronic, or Acute on Chronic? @ -Acute Uncomplicated (without systemic symptoms) or Complicated (systemic symptoms)? @ -default Side effects of treatment? @ -No Exacerbation, Progression, or Severe Exacerbation? @ -No Poses a threat to life or bodily function? How? (Chest pain, USA, MA, pneumonia, PE, COPD, DKA, ARF, appy, cholecystitis, CVA, Diverticulitis, Homicidal, Suicidal, threat to staff... and all critical care pts) @ -[Moderate risk - Lab Data Result diagrams: 01/18/23 21:04 01/18/23 21:04 Lab Results 01/18/23 01/18/23 01/18/23 Range/Units 21:04 21:04 21:04 WBC 7.1 (3.8-10.6) k/uL RBC 3.85 L (4.30-5.90) m/uL Hgb 11.9 L (13.0-17.5) gm/dL Hct 36.4 L (39.0-53.0) % MCV 94.6 (80.0-100.0) fL MCH 31.0 (25.0-35.0) pg MCHC 32.7 (31.0-37.0) g/dL RDW 14.3 (11.5-15.5) % Plt Count 206 (150-450) k/uL MPV 7.5 Neutrophils % 62 % Lymphocytes % 20 % Monocytes % 10 % Eosinophils % 7 % Basophils % 1 % Neutrophils # 4.4 (1.3-7.7) k/uL Lymphocytes # 1.4 (1.0-4.8) k/uL Monocytes # 0.7 (0-1.0) k/uL Eosinophils # 0.5 (0-0.7) k/uL Basophils # 0.1 (0-0.2) k/uL PT 11.4 (9.0-12.0) sec INR 1.1 (<1.2) APTT 30.8 H (22.0-30.0) sec VBG pH (7.31-7.41) VBG pCO2 (37-51) mmHg VBG HCO3 (24-28) mmol/L Sodium 137 (137-145) mmol/L Potassium 4.3 (3.5-5.1) mmol/L Chloride 103 (98-107) mmol/L Carbon Dioxide 27 (22-30) mmol/L Anion Gap 7 mmol/L BUN 50 H (9-20) mg/dL Creatinine 1.38 H (0.66-1.25) mg/dL Est GFR (CKD-EPI)AfAm 60 (>60 ml/min/1.73 sqM) Est GFR (CKD-EPI)NonAf 52 (>60 ml/min/1.73 sqM) Glucose 160 H (74-99) mg/dL Plasma Lactic Acid Tho (0.7-2.0) mmol/L Calcium 8.4 (8.4-10.2) mg/dL Magnesium 2.1 (1.6-2.3) mg/dL Total Bilirubin 0.6 (0.2-1.3) mg/dL AST 31 (17-59) U/L ALT 24 (4-49) U/L Alkaline Phosphatase 81 (38-126) U/L Troponin I (0.000-0.034) ng/mL Total Protein 5.9 L (6.3-8.2) g/dL Albumin 3.2 L (3.5-5.0) g/dL 01/18/23 01/18/23 01/18/23 Range/Units 21:04 21:04 21:04 WBC (3.8-10.6) k/uL RBC (4.30-5.90) m/uL Hgb (13.0-17.5) gm/dL Hct (39.0-53.0) % MCV (80.0-100.0) fL MCH (25.0-35.0) pg MCHC (31.0-37.0) g/dL RDW (11.5-15.5) % Plt Count (150-450) k/uL MPV Neutrophils % % Lymphocytes % % Monocytes % % Eosinophils % % Basophils % % Neutrophils # (1.3-7.7) k/uL Lymphocytes # (1.0-4.8) k/uL Monocytes # (0-1.0) k/uL Eosinophils # (0-0.7) k/uL Basophils # (0-0.2) k/uL PT (9.0-12.0) sec INR (<1.2) APTT (22.0-30.0) sec VBG pH 7.30 L (7.31-7.41) VBG pCO2 60 H (37-51) mmHg VBG HCO3 29 H (24-28) mmol/L Sodium (137-145) mmol/L Potassium (3.5-5.1) mmol/L Chloride (98-107) mmol/L Carbon Dioxide (22-30) mmol/L Anion Gap mmol/L BUN (9-20) mg/dL Creatinine (0.66-1.25) mg/dL Est GFR (CKD-EPI)AfAm (>60 ml/min/1.73 sqM) Est GFR (CKD-EPI)NonAf (>60 ml/min/1.73 sqM) Glucose (74-99) mg/dL Plasma Lactic Acid Tho 0.7 (0.7-2.0) mmol/L Calcium (8.4-10.2) mg/dL Magnesium (1.6-2.3) mg/dL Total Bilirubin (0.2-1.3) mg/dL AST (17-59) U/L ALT (4-49) U/L Alkaline Phosphatase (38-126) U/L Troponin I 0.014 (0.000-0.034) ng/mL Total Protein (6.3-8.2) g/dL Albumin (3.5-5.0) g/dL Disposition Clinical Impression: Cellulitis, Weakness, Delirium, Hypercarbia Disposition: ADMITTED IP TO THIS HOSP Condition: Stable Is patient prescribed a controlled substance at d/c from ED?: No Referrals: Emmie Posadas DO [Primary Care Provider] - 1-2 days Time of Disposition: 22:28
[2023-01-18 21:21] LABS: Basophils # (A) 0.1 k/uL (0-0.2); Basophils % (A) 1 %; Eosinophils # (A) 0.5 k/uL (0-0.7); Eosinophils % (A) 7 %; HCT 36.4 % (39.0-53.0); HGB 11.9 gm/dL (13.0-17.5); Lymphocytes # (A) 1.4 k/uL (1.0-4.8); Lymphocytes % (A) 20 %; MCHC 32.7 g/dL (31.0-37.0); MCV 94.6 fL (80.0-100.0); Mean Platelet Volume 7.5; Monocytes # (A) 0.7 k/uL (0-1.0); Monocytes % (A) 10 %; Neutrophils # (A) 4.4 k/uL (1.3-7.7); Neutrophils % (A) 62 %; Platelet Count 206 k/uL (150-450); RBC 3.85 m/uL (4.30-5.90); RDW 14.3 % (11.5-15.5); WBC 7.1 k/uL (3.8-10.6)
[2023-01-18 21:24] LABS: VBG PH 7.3 (7.31-7.41)
[2023-01-18 21:30] LABS: ALT 24 U/L (4-49); AST 31 U/L (17-59); African American GFR (CKD) 60 (>60 ml/min/1.73 sqM); Albumin 3.2 g/dL (3.5-5.0); Alkaline Phosphatase 81 U/L (38-126); Anion Gap 7 mmol/L; Blood Urea Nitrogen 50 mg/dL (9-20); Calcium 8.4 mg/dL (8.4-10.2); Carbon Dioxide 27 mmol/L (22-30); Chloride 103 mmol/L (98-107); Glucose 160 mg/dL (74-99); Magnesium 2.1 mg/dL (1.6-2.3); Non-African American GFR(CKD) 52 (>60 ml/min/1.73 sqM); Potassium 4.3 mmol/L (3.5-5.1); Sodium 137 mmol/L (137-145); Total Bilirubin 0.6 mg/dL (0.2-1.3); Total Protein 5.9 g/dL (6.3-8.2)
[2023-01-18 21:58] LABS: INR 1.1 (<1.2); Partial Thromboplastin Time 30.8 sec (22.0-30.0); Prothrombin Time 11.4 sec (9.0-12.0)
[2023-01-18] MEDS ORDERED: ACETAMINOPHEN TAB 325 MG TAB PO PRN (22:19)
[2023-01-18] MEDS ORDERED: NALOXONE 0.4 MG/ML 1 ML VIAL IV PRN (22:19)
[2023-01-18] MEDS: SODIUM CHLORIDE 0.9% 1,000 ML IV SCH (22:28)
[2023-01-19 07:55] LABS: Glucose,Whole Blood 139 mg/dL (70-110)
[2023-01-19] MEDS: IPRATROPIUM-ALBUTEROL 3 ML NEB INHALATION SCH ×4 (08:48→21:04)
[2023-01-19] MEDS ORDERED: DEXTROSE 50% SYRINGE 50 ML IVP PRN (09:15)
[2023-01-19 09:51] LABS: Appearance,Urine Clear (Clear); Bilirubin,Urine Negative (Negative); Blood,Urine Negative (Negative); Color,Urine Yellow; Glucose,Urine (UA) Negative (Negative); Ketones,Urine Negative (Negative); Leukocyte Esterase,Urine Small (Negative); Mucus,Urine Rare /hpf; Nitrite,Urine Negative (Negative); Protein,Urine Negative (Negative); RBC,Urine 1 /hpf (0-5); Specific Gravity,Urine 1.015 (1.001-1.035); Squamous Epithelial Cell,Urine <1 /hpf (0-4); Urobilinogen,Urine <2.0 mg/dL (<2.0)
[2023-01-19] MEDS: ATORVASTATIN 10 MG TAB PO SCH (10:33)
[2023-01-19] MEDS: carvediloL 12.5 MG TAB PO SCH ×2 (10:33→17:25)
[2023-01-19] MEDS: TAMSULOSIN 0.4 MG CAP.ER.24H PO SCH (10:33)
[2023-01-19] MEDS: CHOLECALCIFEROL 25 MCG (1000 IU) TABLET PO SCH (10:33)
[2023-01-19] MEDS: CYANOCOBALAMIN 500 MCG TAB PO SCH (10:33)
[2023-01-19] MEDS: FLUoxetine HCL 20 MG CAP PO SCH (10:34)
[2023-01-19] MEDS: SODIUM CHLORIDE 0.9% 1,000 ML IV SCH (10:43)
[2023-01-19] MEDS ORDERED: HYDROcodone/APAP 5-325MG 1 EACH TAB PO PRN (10:48)
[2023-01-19 11:43] LABS: Glucose,Whole Blood 220 mg/dL (70-110)
[2023-01-19] MEDS: INSULIN ASPART (NovoLOG) 100 UNIT/ML VIAL SQ SCH ×3 (12:38→20:44)
--- NOTE | 2023-01-19 14:21 | P.HPIM ---
History of Present Illness H&P Date: 01/19/23 History of present illness; patient is 68-year-old gentleman with past medical history significant for atrial fibrillation, diabetes mellitus type 2, hyperlipidemia, hypertension, obstructive sleep apnea, basal cell carcinoma, depression Who presented to The hospital because of hallucinations. Patient was recently in the hospital because of encephalopathy and right lower extremity cellulitis, was discharged on doxycycline for 10 days. Patient was discharged to shelter facility, he has been intermittently confused over there. Patient has been complaining of hallucinations mostly visual, stating that he was seeing rabbits in his room. No complaint of fever or chills. No complaints of nausea or vomiting. Redness of right lower extremity has improved. Because of this increasing episodes of confusion, patient was brought to the ER Initial lab work in the ER showed WBC 7.1, hemoglobin 11.9, sodium 137, potassium 4.3, BUN 50, creatinine 1.3. CT brain showed atrophy, minimal mucosal thickening within the anterior left right ethmoid air cells, no evidence of acute hemorrhage or stroke Chest x-ray negative for any acute cardiac process Patient was admitted to medicine service REVIEW OF SYSTEMS: CONSTITUTIONAL: No fever, no malaise, no fatigue. HEENT: No recent visual problems or hearing problems. Denied any sore throat. CARDIOVASCULAR: No chest pain, orthopnea, PND, no palpitations, no syncope. PULMONARY: No shortness of breath, no cough, no hemoptysis. GASTROINTESTINAL: No diarrhea, no nausea, no vomiting, no abdominal pain. NEUROLOGICAL: No headaches, no weakness, no numbness. HEMATOLOGICAL: Denies any bleeding or petechiae. GENITOURINARY: Denies any burning micturition, frequency, or urgency. MUSCULOSKELETAL/RHEUMATOLOGICAL: Denies any joint pain, swelling, or any muscle pain. ENDOCRINE: Denies any polyuria or polydipsia. The rest of the 14-point review of systems is negative. PHYSICAL EXAMINATION: GENERAL: The patient is alert and oriented x3, not in any acute distress. Well developed, well nourished. HEENT: Pupils are round and equally reacting to light. EOMI. No scleral icterus. No conjunctival pallor. Normocephalic, atraumatic. No pharyngeal erythema. No thyromegaly. CARDIOVASCULAR: S1 and S2 present. No murmurs, rubs, or gallops. PULMONARY: Chest is clear to auscultation, no wheezing or crackles. ABDOMEN: Soft, nontender, nondistended, normoactive bowel sounds. No palpable organomegaly. MUSCULOSKELETAL: No joint swelling or deformity. EXTREMITIES: Right lower extremity bandaged seen NEUROLOGICAL: Gross neurological examination did not reveal any focal deficits. SKIN: No rashes. Assessment and plan Acute delirium Hallucinations History of right lower extremity cellulitis Atrial fibrillation Insulin-dependent diabetes mellitus Hypertension Hyperlipidemia Monitor vital signs Monitor CBC Delirium precautions Avoid use of narcotics or benzodiazepines Resume Coreg and Eliquis Continue home regimen of insulin Levemir, add sliding scale insulin. Continue Flomax Consults psychiatry Consult ID DVT prophylaxis: Past Medical History Past Medical History: Atrial Fibrillation, Cancer, Diabetes Mellitus, Hyperlipidemia, Hypertension, Sleep Apnea/CPAP/BIPAP Additional Past Medical History / Comment(s): Basal cell carcinoma, Heart murmur History of Any Multi-Drug Resistant Organisms: None Reported Past Surgical History: No Surgical Hx Reported Additional Past Surgical History / Comment(s): Cataract surgery right eye Past Anesthesia/Blood Transfusion Reactions: No Reported Reaction Past Psychological History: Depression Smoking Status: Never smoker Past Alcohol Use History: None Reported Past Drug Use History: None Reported - Past Family History Mother Family Medical History: Diabetes Mellitus Medications and Allergies Home Medications Medication Instructions Recorded Confirmed Type Apixaban [Eliquis] 5 mg PO BID 04/11/17 01/18/23 History Cholecalciferol [Vitamin D3 (25 25 mcg PO DAILY 12/12/22 01/18/23 History Mcg = 1000 Iu)] FLUoxetine HCL [PROzac] 20 mg PO DAILY 12/12/22 01/18/23 History Ferrous Sulfate [Iron (65 MG 325 mg PO HS 12/12/22 01/18/23 History Elemental)] Insulin Glargine,Hum.rec.anlog 30 units SQ HS 12/12/22 01/18/23 History [Lantus Solostar Pen] Insulin Lispro [humaLOG Kwikpen] See Protocol SQ TID-W/MEALS 12/12/22 01/18/23 History Testosterone [Androgel 1.62% Gel 2 packet TOPICAL DAILY 12/12/22 01/18/23 History Packet] carvediloL [Coreg] 25 mg PO BID 12/12/22 01/18/23 History Atorvastatin [Lipitor] 10 mg PO DAILY tab 12/17/22 01/18/23 Rx Acetaminophen Tab [Tylenol] 500 mg PO Q6HR PRN 01/02/23 01/18/23 History Tamsulosin HCl [Flomax] 0.4 mg PO DAILY 01/02/23 01/18/23 History Vitamin B-12 100mcg 1 tab PO DAILY 01/02/23 01/18/23 History hydroCHLOROthiazide [Hydrodiuril] 25 mg PO DAILY PRN 01/18/23 01/18/23 History traMADol HCL 100 mg PO Q6H PRN 01/18/23 01/18/23 History Allergies Allergy/AdvReac Type Severity Reaction Status Date / Time famotidine [From Pepcid] Allergy Unknown Verified 01/18/23 22:11 Penicillins Allergy Rash/Hives Verified 01/18/23 23:26 lisinopril [From Prinivil] AdvReac Cough Verified 01/18/23 22:11 Physical Exam Vitals: Vital Signs Temp Pulse Pulse Resp BP BP Pulse Ox 01/19/23 08:54 62 16 01/19/23 08:48 68 16 95 01/19/23 08:25 98.0 F 64 20 132/59 92 L 01/19/23 07:29 8.4 F L 64 16 138/71 96 01/19/23 05:23 64 20 138/71 95 01/19/23 00:46 61 20 124/83 96 01/18/23 22:32 62 20 115/80 96 01/18/23 19:49 97.2 F L 64 20 141/65 97 Intake and Output 01/18/23 01/19/23 01/19/23 22:59 06:59 14:59 Intake Total 120 Balance 120 Intake: Oral 120 Other: Weight 149.232 kg Results CBC & Chem 7: 01/18/23 21:04 01/18/23 21:04 Labs: Abnormal Lab Results - Last 24 Hours (Table) 01/18/23 01/18/23 01/18/23 Range/Units 21:04 21:04 21:04 RBC 3.85 L (4.30-5.90) m/uL Hgb 11.9 L (13.0-17.5) gm/dL Hct 36.4 L (39.0-53.0) % APTT 30.8 H (22.0-30.0) sec VBG pH (7.31-7.41) VBG pCO2 (37-51) mmHg VBG HCO3 (24-28) mmol/L BUN 50 H (9-20) mg/dL Creatinine 1.38 H (0.66-1.25) mg/dL Glucose 160 H (74-99) mg/dL POC Glucose (mg/dL) (70-110) mg/dL Total Protein 5.9 L (6.3-8.2) g/dL Albumin 3.2 L (3.5-5.0) g/dL 01/18/23 01/19/23 Range/Units 21:04 07:53 RBC (4.30-5.90) m/uL Hgb (13.0-17.5) gm/dL Hct (39.0-53.0) % APTT (22.0-30.0) sec VBG pH 7.30 L (7.31-7.41) VBG pCO2 60 H (37-51) mmHg VBG HCO3 29 H (24-28) mmol/L BUN (9-20) mg/dL Creatinine (0.66-1.25) mg/dL Glucose (74-99) mg/dL POC Glucose (mg/dL) 139 H (70-110) mg/dL Total Protein (6.3-8.2) g/dL Albumin (3.5-5.0) g/dL
[2023-01-19] MEDS ORDERED: OLANZapine 2.5 MG TAB PO PRN (15:50)
--- NOTE | 2023-01-19 16:06 | P.CN ---
Psychiatric Consult - . Consult date: 01/19/23 Consult:: 01/19/23 12:22 IDENTIFYING DATA: This patient is a 68-year-old male coming from a long term, has 3 kids, single. REASON FOR REFERRAL: Psychiatry was consulted for "hallucinations, agitation" HISTORY OF PRESENT ILLNESS: The patient presented to the hospital on 01/18 for confusion and hallucinations. patient was coming from a long term. he apparently had a right lower extremitie infection and a recent fall. his CO2 was elevate at 60, creatinine was mildly increased at 1.38 and BUN 50. patient was admitted for cellulitis, weakness and hypercarbia. patient was seen laying in bed today using his bipap mask. he was agreeable to speak to ticket writer, difficult to comprehend at times. was fairly conrete, appropriate. states that he is doing better today and can breathe easier. states that he came in to the hosital for the infection in his feet. claims he has chronic depression and anxiety. states that he was seeing people "an old friend" as a hallucination however not today. denies any AH. claims his sleep is poor, has a fair appetite. At this time patient denies any suicidal or homical ideations, intent or plan. denies any paranoia or delusions. Patients admits to using no rec drugs. PAST PSYCHIATRIC HISTORY: Patient has a a history of depression and anxiety. [Patient denies being on any psychiatric medications except for prozac.] [Patient denies any previous psychiatric hospitalizations.] [Patient denies any psychiatric outpatient follow-up.] [Patient denies any history of suicide attempts in the past.] Past Medical History: Atrial Fibrillation, Cancer, Diabetes Mellitus, Hyperlipidemia, Hypertension, Sleep Apnea/CPAP/BIPAP Additional Past Medical History / Comment(s): Basal cell carcinoma, Heart murmur History of Any Multi-Drug Resistant Organisms: None Reported Past Surgical History: No Surgical Hx Reported Additional Past Surgical History / Comment(s): Cataract surgery right eye Past Anesthesia/Blood Transfusion Reactions: No Reported Reaction Past Psychological History: Depression Smoking Status: Never smoker Past Alcohol Use History: None Reported Past Drug Use History: None Reported ALLERGIES: as per EMR. CHEMICAL DEPENDENCY HISTORY: as per HPI. FAMILY PSYCHIATRIC/SUBSTANCE USE HISTORY: claims that his mother has some form of mental illness SOCIAL HISTORY: Patient was born and raised in [place], [place]. he claims that he completed high school. used to work at [employer]. deies any legal hx. has 3 kids and is single. MENTAL STATUS EXAM: General Appearance: Patient appears to be stated age is alert, pleasant, and cooperative. laying in bed, Patient appears to have [fair] hygiene and grooming wearing hospital gown with [fair] eye contact. Behavior: [Patient is calmly lying in bed without any agitated behavior.] wearing bipap mask Speech: Patient's speech is fluent and nonpressured. concrete, soft tone. Mood/Affect: Patient reports their mood is "[a bit depressed]and anxious", affect is congruent Suicidality/Homicidality: Patient denies having any suicidal or homicidal ideation intent or plan. Perceptions: Patient denies any visual hallucinations [and denies any auditory hallucinations] Though content/process: There is no evidence of any delusional thought content and thought process is linear and goal-directed. concrete. Memory and concentration: AOX3, grossly intact for the purposes of this session. Can spell "WORLD" backwards Judgment and insight: fair IMPRESSIONS: Delirium, likely secondary to hypercarbia hx of depression and anxiety PLAN: -At this time patient DOES NOT meet criteria for inpatient psychiatric admission [-Delirium precautions recommended with patient including - avoiding use of narcotics and DRUPAL DEVELOPER sedatives, limit anticholinergic medications when possible, frequent re-orientation, minimize use of restraints, open window shades during the day and close them at night] -Would recommend the following medication changes/additions: prozac 20 mg daily for mood/anxiety, added zyprexa 2.5 mg qhs for insomnia/psychosis plus 2.5 mg daily prn for psychosis [-insole department worker to provide patient with outpatient mental health/psychiatry resources for appropriate follow up upon discharge] -Communicated plan to nurse -Psychiatry will sign off at this time -Please contact with any questions.
[2023-01-19] MEDS: ACETAMINOPHEN TAB 500 MG TAB PO PRN (16:33)
[2023-01-19 17:08] LABS: Glucose,Whole Blood 194 mg/dL (70-110)
[2023-01-19 20:22] LABS: Glucose,Whole Blood 202 mg/dL (70-110)
[2023-01-19] MEDS: INSULIN DETEMIR (LEVEMIR) 100 UNIT/ML SYR SQ SCH (20:44)
[2023-01-19] MEDS: OLANZapine 2.5 MG TAB PO SCH (20:45)
[2023-01-19] MEDS: FERROUS SULFATE 325 MG TAB PO SCH (20:45)
[2023-01-19] MEDS: APIXABAN 5 MG TAB PO SCH (20:45)
--- NOTE | 2023-01-19 22:56 | P.CONS ---
History of Present Illness - Reason for Consult Consult date: 01/19/23 Right leg cellulitis Requesting physician: Jose Ho - Chief Complaint Mental status changes x one day - History of Present Illness Patient is a 76-year-old male with a past medical history significant diabetes mellitus hypertension hyperlipidemia obstructive sleep apnea atrial fibrillation with recent admission to the hospital and has been treated for right lower extremity ulceration and cellulitis subsequently patient was stabilized and discharged to the intermediate patient has not been brought back to the hospital complaining of hallucination mostly visual has a patient was seen for diabetes and other remains in the room no clear history of any fever or any chills on presentation to the hospital the patient was afebrile and no fever has been recorded subsequently mild hypoxemia however the patient is currently on BiPAP and lethargic and cannot provide any history so most information has been extracted from review the chart and talking nursing staff patient did have normal white count. Record has been mildly elevated liver enzymes are normal u rine has been negative patient did have a chest x-ray no acute pulmonary process patient was admitted to hospital infectious was consulted for management of right lower extremity wound and cellulitis Review of Systems Positive points has been mentioned in HPI complete review could not be obtained because of his underlying mental status Past Medical History Past Medical History: Atrial Fibrillation, Cancer, Diabetes Mellitus, Hyp erlipidemia, Hypertension, Sleep Apnea/CPAP/BIPAP Additional Past Medical History / Comment(s): Basal cell carcinoma, Heart murmur History of Any Multi-Drug Resistant Organisms: None Reported Past Surgical History: No Surgical Hx Reported Additional Past Surgical History / Comment(s): Cataract surgery right eye Past Anesthesia/Blood Transfusion Reactions: No Reported Reaction Past Psychological History: Depression Smoking Status: Never smoker Past Alcohol Use History: None Reported Past Drug Use History: None Reported - Past Family History Mother Family Medical History: Diabetes Mellitus Medications and Allergies Home Medications Medication Instructions Recorded Confirmed Type Apixaban [Eliquis] 5 mg PO BID 04/11/17 01/18/23 History Cholecalciferol [Vitamin D3 (25 25 mcg PO DAILY 12/12/22 01/18/23 History Mcg = 1000 Iu)] FLUoxetine HCL [PROzac] 20 mg PO DAILY 12/12/22 01/18/23 History Ferrous Sulfate [Iron (65 MG 325 mg PO HS 12/12/22 01/18/23 History Elemental)] Insulin Glargine,Hum.rec.anlog 30 units SQ HS 12/12/22 01/18/23 History [Lantus Solostar Pen] Insulin Lispro [humaLOG Kwikpen] See Protocol SQ TID-W/MEALS 12/12/22 01/18/23 History Testosterone [Androgel 1.62% Gel 2 packet TOPICAL DAILY 12/12/22 01/18/23 History Packet] carvediloL [Coreg] 25 mg PO BID 12/12/22 01/18/23 History Atorvastatin [Lipitor] 10 mg PO DAILY tab 12/17/22 01/18/23 Rx Acetaminophen Tab [Tylenol] 500 mg PO Q6HR PRN 01/02/23 01/18/23 History Tamsulosin HCl [Flomax] 0.4 mg PO DAILY 01/02/23 01/18/23 History Vitamin B-12 100mcg 1 tab PO DAILY 01/02/23 01/18/23 History Cephalexin [Keflex] 500 mg PO Q8HR #21 cap 01/29/23 Rx Furosemide [Lasix] 40 mg PO DAILY tab 01/29/23 Rx INSULIN ASPART (NovoLOG) [NovoLOG 4 unit SQ AC-TID each 01/29/23 Rx (formulary)] Ipratropium-Albuterol Nebulize 3 ml INHALATION TID each 01/29/23 Rx [Duoneb 0.5 mg-3 mg/3 ml Soln] OLANZapine [ZyPREXA] 2.5 mg PO HS tab 01/29/23 Rx traMADol HCL 50 mg PO Q6H PRN #12 tab 01/29/23 Rx Allergies Allergy/AdvReac Type Severity Reaction Status Date / Time famotidine [From Pepcid] Allergy Unknown Verified 01/18/23 22:11 Penicillins Allergy Rash/Hives Verified 01/18/23 23:26 hydrocodone AdvReac Hallucinati Verified 01/19/23 14:49 ons lisinopril [From Prinivil] AdvReac Cough Verified 01/18/23 22:11 Physical Exam Vitals: Vital Signs Temp Pulse Pulse Resp BP BP Pulse Ox 01/19/23 11:50 62 16 01/19/23 11:41 66 16 01/19/23 08:54 62 16 01/19/23 08:48 68 16 95 01/19/23 08:25 98.0 F 64 20 132/59 92 L 01/19/23 07:29 8.4 F L 64 16 138/71 96 01/19/23 05:23 64 20 138/71 95 01/19/23 00:46 61 20 124/83 96 01/18/23 22:32 62 20 115/80 96 01/18/23 19:49 97.2 F L 64 20 141/65 97 Intake and Output 01/18/23 01/19/23 01/19/23 22:59 06:59 14:59 Intake Total 120 Balance 120 Intake: Oral 120 Other: Weight 149.232 kg 149.232 kg GENERAL DESCRIPTION: Elderly male lying in bed, no distress. No tachypnea or accessory muscle of respiration use. HEENT: Shows Pallor , no scleral icterus. Oral mucous membrane is dry. NECK: Trachea central, no thyromegaly. LUNGS: Unlabored breathing. Clear to auscultation anteriorly. No wheeze or crackle. HEART: S1, S2, regular rate and rhythm. No loud murmur ABDOMEN: Soft, no tenderness , guarding or rigidity, no organomegaly EXTREMITIES: Right lower simply superficial ulceration minimal surrounding redness or foul-smelling drainage SKIN: No rash, no masses palpable. NEUROLOGICAL: The patient is lethargic orientation could not be determined. Results CBC & Chem 7: 01/27/23 05:32 01/29/23 12:03 Labs: Abnormal Lab Results - Last 24 Hours (Table) 01/18/23 01/18/23 01/18/23 Range/Units 21:04 21:04 21:04 RBC 3.85 L (4.30-5.90) m/uL Hgb 11.9 L (13.0-17.5) gm/dL Hct 36.4 L (39.0-53.0) % APTT 30.8 H (22.0-30.0) sec VBG pH (7.31-7.41) VBG pCO2 (37-51) mmHg VBG HCO3 (24-28) mmol/L BUN 50 H (9-20) mg/dL Creatinine 1.38 H (0.66-1.25) mg/dL Glucose 160 H (74-99) mg/dL POC Glucose (mg/dL) (70-110) mg/dL Total Protein 5.9 L (6.3-8.2) g/dL Albumin 3.2 L (3.5-5.0) g/dL Ur Leukocyte Esterase (Negative) Urine Mucus (None) /hpf 01/18/23 01/19/23 01/19/23 Range/Units 21:04 07:53 09:30 RBC (4.30-5.90) m/uL Hgb (13.0-17.5) gm/dL Hct (39.0-53.0) % APTT (22.0-30.0) sec VBG pH 7.30 L (7.31-7.41) VBG pCO2 60 H (37-51) mmHg VBG HCO3 29 H (24-28) mmol/L BUN (9-20) mg/dL Creatinine (0.66-1.25) mg/dL Glucose (74-99) mg/dL POC Glucose (mg/dL) 139 H (70-110) mg/dL Total Protein (6.3-8.2) g/dL Albumin (3.5-5.0) g/dL Ur Leukocyte Esterase Small H (Negative) Urine Mucus Rare H (None) /hpf 01/19/23 Range/Units 11:31 RBC (4.30-5.90) m/uL Hgb (13.0-17.5) gm/dL Hct (39.0-53.0) % APTT (22.0-30.0) sec VBG pH (7.31-7.41) VBG pCO2 (37-51) mmHg VBG HCO3 (24-28) mmol/L BUN (9-20) mg/dL Creatinine (0.66-1.25) mg/dL Glucose (74-99) mg/dL POC Glucose (mg/dL) 220 H (70-110) mg/dL Total Protein (6.3-8.2) g/dL Albumin (3.5-5.0) g/dL Ur Leukocyte Esterase (Negative) Urine Mucus (None) /hpf Assessment and Plan (1) Cellulitis of right leg Current Visit: Yes Status: Acute Code(s): L03.115 - CELLULITIS OF RIGHT LOWER LIMB SNOMED Code(s): 278653829 Plan: 1patient with right lower extremity venous stasis ulcer and mild cellulitis wound base looks clean no significant slough tissue we will recommend local wound care with the dry Aquacel silver dressing and Andrea wrap for compression to keep the swelling down dressing should be changed daily as per discussion with the nursing staff 2-start the patient on cefazolin 2 g every 8 hours for possible cellulitis of the right lower extremity We will follow on clinical condition and cultures to further adjust medication if needed Thank you for this consultation we will follow the patient along with you Time with Patient: Greater than 30
[2023-01-20] MEDS: SODIUM CHLORIDE 0.9% 1,000 ML IV SCH (01:12)
[2023-01-20 06:03] LABS: Glucose,Whole Blood 112 mg/dL (70-110)
[2023-01-20] MEDS: INSULIN ASPART (NovoLOG) 100 UNIT/ML VIAL SQ SCH ×4 (06:10→22:12)
[2023-01-20] MEDS: CHOLECALCIFEROL 25 MCG (1000 IU) TABLET PO SCH (08:00)
[2023-01-20] MEDS: FLUoxetine HCL 20 MG CAP PO SCH (08:00)
[2023-01-20] MEDS: ATORVASTATIN 10 MG TAB PO SCH (08:01)
[2023-01-20] MEDS: TAMSULOSIN 0.4 MG CAP.ER.24H PO SCH (08:01)
[2023-01-20] MEDS: APIXABAN 5 MG TAB PO SCH ×2 (08:01→22:12)
[2023-01-20] MEDS: CYANOCOBALAMIN 500 MCG TAB PO SCH (08:01)
[2023-01-20] MEDS: carvediloL 12.5 MG TAB PO SCH ×2 (08:01→17:07)
[2023-01-20] MEDS: IPRATROPIUM-ALBUTEROL 3 ML NEB INHALATION SCH ×4 (09:49→20:50)
[2023-01-20 11:56] LABS: Glucose,Whole Blood 179 mg/dL (70-110)
[2023-01-20 16:58] LABS: Glucose,Whole Blood 225 mg/dL (70-110)
--- NOTE | 2023-01-20 21:20 | P.PN ---
Subjective Progress Note Date: 01/20/23 Principal diagnosis: Right leg cellulitis Patient is a 76-year-old male with a past medical history significant diabetes mellitus hypertension hyperlipidemia obstructive sleep apnea atrial fibrillation with recent admission to the hospital and has been treated for right lower extremity ulceration and cellulitis , presenting back to the hospital with visual hallucination and noticed to having the ulceration to the right lower extremity concern for cellulitis. On today's evaluation that is 01/20/2023, the patient denies having any fever or chills patient is more awake and alert the patient is breathing comfortably no chest pain shortness of breath or cough no abdominal pain or pain to the right lower extremity Objective - Vital Signs Vital signs: Vital Signs Temp 98.0 F 01/20/23 07:28 Pulse 72 01/20/23 11:48 Resp 19 01/20/23 07:28 BP 155/81 01/20/23 07:28 Pulse Ox 92 L 01/20/23 09:50 FiO2 21 01/19/23 23:21 Intake & Output 01/19/23 01/20/23 01/20/23 18:59 06:59 18:59 Intake Total 120 Output Total 600 Balance -480 Intake: Oral 120 Output: Urine 600 Other: Voiding Method Toilet Toilet Urinal Urinal # Voids 1 - Exam GENERAL DESCRIPTION: An elderly male lying in bed in no distress RESPIRATORY SYSTEM: Unlabored breathing , decreased breath sounds at bases HEART: S1 S2 regular rate and rhythm , ABDOMEN: Soft , no tenderness EXTREMITIES: Right leg is currently dressed no drainage on the dressing - Labs CBC & Chem 7: 01/18/23 21:04 01/18/23 21:04 Labs: Abnormal Lab Results - Last 24 Hours (Table) 01/19/23 01/19/23 01/20/23 Range/Units 16:59 20:20 06:01 POC Glucose (mg/dL) 194 H 202 H 112 H (70-110) mg/dL Hemoglobin A1c (<=6.0) % 01/20/23 01/20/23 Range/Units 06:14 11:54 POC Glucose (mg/dL) 179 H (70-110) mg/dL Hemoglobin A1c 7.9 H (<=6.0) % Assessment and Plan (1) Cellulitis of right leg Current Visit: Yes Status: Acute Code(s): L03.115 - CELLULITIS OF RIGHT LOWER LIMB SNOMED Code(s): 625859362 (2) 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 exposed Current Visit: No Status: Acute Code(s): L97.212 - NON-PRESSURE CHRONIC ULCER OF RIGHT CALF W FAT LAYER EXPOSED SNOMED Code(s): 67751624805472607 Plan: 1patient with right lower extremity venous stasis ulcer and mild cellulitis wound base looks clean no significant slough tissue we will recommend local wound care with the dry Aquacel silver dressing and Andrea wrap for compression to keep the swelling down dressing should be changed daily as per discussion with the nursing staff 2Patient to continue with cefazolin 2 g every 8 hours for possible cellulitis of the right lower extremity
[2023-01-20 21:22] LABS: Glucose,Whole Blood 193 mg/dL (70-110)
[2023-01-20] MEDS: OLANZapine 2.5 MG TAB PO SCH (22:11)
[2023-01-20] MEDS: FERROUS SULFATE 325 MG TAB PO SCH (22:12)
[2023-01-20] MEDS: INSULIN DETEMIR (LEVEMIR) 100 UNIT/ML SYR SQ SCH (22:12)
[2023-01-21 05:55] LABS: Glucose,Whole Blood 120 mg/dL (70-110)
[2023-01-21] MEDS: INSULIN ASPART (NovoLOG) 100 UNIT/ML VIAL SQ SCH ×4 (06:09→21:37)
[2023-01-21] MEDS: carvediloL 12.5 MG TAB PO SCH ×2 (08:48→17:10)
[2023-01-21] MEDS: IPRATROPIUM-ALBUTEROL 3 ML NEB INHALATION SCH ×4 (09:01→21:10)
[2023-01-21] MEDS: TAMSULOSIN 0.4 MG CAP.ER.24H PO SCH (10:44)
[2023-01-21] MEDS: FLUoxetine HCL 20 MG CAP PO SCH (10:44)
[2023-01-21] MEDS: APIXABAN 5 MG TAB PO SCH ×2 (10:44→21:36)
[2023-01-21] MEDS: ATORVASTATIN 10 MG TAB PO SCH (10:44)
[2023-01-21] MEDS: CHOLECALCIFEROL 25 MCG (1000 IU) TABLET PO SCH (10:44)
[2023-01-21] MEDS: CYANOCOBALAMIN 500 MCG TAB PO SCH (10:44)
[2023-01-21 11:20] LABS: Glucose,Whole Blood 95 mg/dL (70-110)
[2023-01-21] MEDS: SODIUM CHLORIDE 0.9% 1,000 ML IV SCH ×3 (11:28→17:10)
--- NOTE | 2023-01-21 12:17 | CDI ---
Documentation Clarification Form Date: 01/21/2023 11:45:48 AM From: Susan Montiel RN CCDS Phone: [phone] Admit Date: 01/18/2023 10:19:00 PM Patient Name: Lex Maldonado Visit Number: [id number] Discharge Date: ATTENTION: The Clinical Documentation Specialists (CDI) and [facility] Coding Staff appreciate your assistance in clarifying documentation. Please respond to the clarification below the line at the bottom and electronically sign. The CDI & [facility] Coding staff will review the response and follow-up if needed. Please note: Queries are made part of the Legal Health Record. If you have any questions, please contact the author of this message via ITS. Dr. Jose Ho Your patient has the documented symptom of Acute Delirium 01/19, H&P. Additional clarification regarding the etiology/cause of this symptom is requested. History/Risk Factors: 68 year old Male presents to the ED with confusion and hallucination. Medical History: Sleep Apnea/ CPAP/BiPAP, DM, HTN and Atrial Fib. 01/19, H&P Clinical Indicators: Labs, 01/18: Wbc 7.1; Hgb 11.9; Blood Gas, 01/18:: PH 7.30, pCO2 60, HCO3 29, BUN 50, Cr 1.38, Glucose 160, total protein 5.9 albumin 3.2 VVS, 01/18 B/P 141/65 , HR 64, Temp 97.2 F Oral, RR 20, SpO2 97% room air VSS, 01/19 B/P 117/76, HR 63, Temp 98.7 F Oral, RR 18, SpO2 94% 3L nasal canula Brain CT, 01/18: Atrophy, Minimal mucosal thickening within the anterior left right ethmoid air cells. ID note, 01/20: Patient to continue with cefazolin 2g every 8 hours for possible cellulitis of the right lower extremity. Psychology consult, 01/19: Delirium, likely secondary to hypercarbia Nursing note, 01/21 05:18: perfect serve [facility] Hospitalist covering for Dr. Nathan Sheet as follows: per handoff report last night by outgoing nurse patient is noted to be hallucinating and very confuse throughout the day, from 1900 to current patient occasionally hallucinate and still very confused and consistently removing nasal cannula and his bipap mask. Treatment: Cefazolin IVPB Q8HR, ID consult (note above). Psychology consult (see above). Oxygen 3L nasal cannula Please clarify the etiology of the symptom of Acute Delirium: [ ] Metabolic Encephalopathy due to right lower extremity cellulitis. [ ] Metabolic Encephalopathy due to Hypercarbia [ ] Dementia (if know, specify Type and if with/without Behavioral Disturbance) [ ] Other condition (please specify) [ ] Unable to determine Documented in Pulmonology consult Acute metabolic encephalopathy secondary to hypercapnia . Dr. Montenegro 01/22/2023 (Template Last Revised: August 2020) MTDD
--- NOTE | 2023-01-21 12:24 | P.PN ---
Subjective Progress Note Date: 01/21/23 Principal diagnosis: Right leg cellulitis Patient is a 76-year-old male with a past medical history significant diabetes mellitus hypertension hyperlipidemia obstructive sleep apnea atrial fibrillation with recent admission to the hospital and has been treated for right lower extremity ulceration and cellulitis , presenting back to the hospital with visual hallucination and noticed to having the ulceration to the right lower extremity concern for cellulitis. On today's evaluation that is 01/21/2023, the patient remains to be afebrile patient is s breathing comfortably on 4 L nasal cannula oxygen, the patient denies chest pain shortness of breath or cough no abdominal pain or pain to the right lower extremity Objective - Vital Signs Vital signs: Vital Signs Temp 98.5 F 01/21/23 07:54 Pulse 72 01/21/23 09:18 Resp 22 01/21/23 07:54 BP 135/74 01/21/23 07:54 Pulse Ox 95 01/21/23 09:02 FiO2 21 01/21/23 00:00 Intake & Output 01/20/23 01/21/23 01/21/23 18:59 06:59 18:59 Intake Total 600 Output Total 3 Balance 597 Intake: Oral 600 Output: Urine 3 Other: Voiding Method Toilet Toilet Urinal Urinal # Voids 3 - Exam GENERAL DESCRIPTION: An elderly male lying in bed in no distress RESPIRATORY SYSTEM: Unlabored breathing , decreased breath sounds at bases HEART: S1 S2 regular rate and rhythm , ABDOMEN: Soft , no tenderness EXTREMITIES: Right leg is currently dressed no drainage on the dressing - Labs CBC & Chem 7: 01/18/23 21:04 01/18/23 21:04 Labs: Abnormal Lab Results - Last 24 Hours (Table) 01/20/23 01/20/23 01/21/23 Range/Units 16:57 21:20 05:51 POC Glucose (mg/dL) 225 H 193 H 120 H (70-110) mg/dL Assessment and Plan (1) Cellulitis of right leg Current Visit: Yes Status: Acute Code(s): L03.115 - CELLULITIS OF RIGHT LOWER LIMB SNOMED Code(s): 681435894 (2) 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 exposed Current Visit: No Status: Acute Code(s): L97.212 - NON-PRESSURE CHRONIC ULCER OF RIGHT CALF W FAT LAYER EXPOSED SNOMED Code(s): 39079017409968213 Plan: 1patient with right lower extremity venous stasis ulcer and mild cellulitis wound base looks clean no significant slough tissue we will recommend local wound care with the dry Aquacel silver dressing and Andrea wrap for compression to keep the swelling down dressing should be changed daily as per discussion with the nursing staff 2Patient to continue with cefazolin 2 g every 8 hours for possible cellulitis of the right lower extremity and plan to finish therapy with oral Keflex Time with Patient: Less than 30
--- NOTE | 2023-01-21 12:26 | CDI ---
Documentation Clarification Form Date: 01/21/2023 12:18:42 PM From: Susan Montiel RN CCDS Phone: [phone] Admit Date: 01/18/2023 10:19:00 PM Patient Name: Lex Maldonado Visit Number: [id number] Discharge Date: ATTENTION: The Clinical Documentation Specialists (CDI) and [facility] Coding Staff appreciate your assistance in clarifying documentation. Please respond to the clarification below the line at the bottom and electronically sign. The CDI & [facility] Coding staff will review the response and follow-up if needed. Please note: Queries are made part of the Legal Health Record. If you have any questions, please contact the author of this message via ITS. Dr. Jose Ho Your patient is receiving the following: [insert treatment, date]. Please clarify what condition/diagnosis is being treated. History/Risk Factors: History/Risk Factors: 68 year old Male presents to the ED with confusion and hallucination. Medical History: Sleep Apnea/ CPAP/BiPAP, DM, HTN and Atrial Fib. 01/19, H&P Clinical indicators: VVS, 01/18 B/P 141/65 , HR 64, Temp 97.2 F Oral, RR 20, SpO2 97% room air VSS, 01/19 B/P 117/76, HR 63, Temp 98.7 F Oral, RR 18, SpO2 94% 3L nasal cannula Psychology consult, 01/19: Delirium, likely secondary to hypercarbia Nursing note, 01/21 05:18: perfect serve [facility] Hospitalist covering for Dr. Nathan Sheet as follows: per handoff report last night by outgoing nurse patient is noted to be hallucinating and very confuse throughout the day, from 1900 to current patient occasionally hallucinate and still very confused and consistently removing nasal cannula and his bipap mask Respiratory assessment, 01/20 ID: Unlabored breathing, decreased breath sounds at bases. Treatment: Oxygen 3L nasal cannula What diagnosis are you treating with Oxygen? [ ] Acute respiratory failure [ ] Chronic respiratory failure [ ] No additional diagnosis [ ] Other, please specify [ ] Unable to determine Documented in Pulmonology Consult Acute on Chronic Hypercapnic respiratory failure. Dr. Montenegro, 01/22/2023 (Template Last Reviewed: August 2020) __ MTDD
--- NOTE | 2023-01-21 15:09 | P.PN ---
Subjective Progress Note Date: 01/21/23 patient is 68-year-old gentleman with past medical history significant for atrial fibrillation, diabetes mellitus type 2, hyperlipidemia, hypertension, obstructive sleep apnea, basal cell carcinoma, depression Who presented to The hospital because of hallucinations. Patient was recently in the hospital because of encephalopathy and right lower extremity cellulitis, was discharged on doxycycline for 10 days. Patient was discharged to care home facility, he has been intermittently confused over there. Patient has been complaining of hallucinations mostly visual, stating that he was seeing rabbits in his room. No complaint of fever or chills. No complaints of nausea or vomiting. Redness of right lower extremity has improved. Because of this increasing episodes of confusion, patient was brought to the ER Initial lab work in the ER showed WBC 7.1, hemoglobin 11.9, sodium 137, potass ium 4.3, BUN 50, creatinine 1.3. CT brain showed atrophy, minimal mucosal thickening within the anterior left right ethmoid air cells, no evidence of acute hemorrhage or stroke Chest x-ray negative for any acute cardiac process Patient was admitted to medicine service 01/21. Patient seen and examined. Confusion has improved. Still complaining of weakness REVIEW OF SYSTEMS: CONSTITUTIONAL: No fever, no malaise,. CARDIOVASCULAR: No chest pain, no palpitations, no syncope. PULMONARY: No shortness of breath, no cough, GASTROINTESTINAL: No diarrhea, no nausea, no vomiting, no abdominal pain. NEUROLOGICAL: No headaches, no weakness, PHYSICAL EXAMINATION: GENERAL: The patient is alert and oriented x3, not in any acute distress. Well developed, well nourished. HEENT: Pupils are round and equally reacting to light. EOMI. No scleral icterus. No conjunctival pallor. Normocephalic, atraumatic. No pharyngeal erythema. No thyromegaly. CARDIOVASCULAR: S1 and S2 present. No murmurs, rubs, or gallops. PULMONARY: Chest is clear to auscultation, no wheezing or crackles. ABDOMEN: Soft, nontender, nondistended, normoactive bowel sounds. No palpable organomegaly. MUSCULOSKELETAL: No joint swelling or deformity. EXTREMITIES: Right lower extremity wound seen, erythema improved NEUROLOGICAL: Gross neurological examination did not reveal any focal deficits. SKIN: No rashes. Assessment and plan Acute delirium Hallucinations right lower extremity cellulitis Atrial fibrillation Insulin-dependent diabetes mellitus Hypertension Hyperlipidemia Monitor vital signs Monitor CBC Monitor CMP Avoid use of narcotics or benzodiazepines Continue Coreg and Eliquis Continue home regimen of insulin Levemir, add sliding scale insulin. Continue Flomax Continue IV cefazolin Psych eval the patient recommended the following Delirium precautions recommended with patient including - avoiding use of narcotics and [employer] sedatives, limit anticholinergic medications when possible, frequent re-orientation, minimize use of restraints, open window shades during the day and close them at night] -Would recommend the following medication changes/additions: prozac 20 mg daily for mood/anxiety, added zyprexa 2.5 mg qhs for insomnia/psychosis plus 2.5 mg daily prn for psychosis [-scrap worker to provide patient with outpatient mental health/psychiatry resources for appropriate follow up upon discharge] ID recommended keeping patient IV cefazolin Follow up on PTOT recommendations Objective - Vital Signs Vital signs: Vital Signs Temp 98.8 F 01/21/23 13:45 Pulse 65 01/21/23 13:45 Resp 19 01/21/23 13:45 BP 151/61 01/21/23 13:45 Pulse Ox 96 01/21/23 13:45 FiO2 21 01/21/23 00:00 Intake & Output 01/20/23 01/21/23 01/21/23 18:59 06:59 18:59 Intake Total 600 Output Total 3 Balance 597 Intake: Oral 600 Output: Urine 3 Other: Voiding Method Toilet Toilet Urinal Urinal # Voids 3 - Labs CBC & Chem 7: 01/18/23 21:04 01/18/23 21:04 Labs: Abnormal Lab Results - Last 24 Hours (Table) 01/20/23 01/20/23 01/21/23 Range/Units 16:57 21:20 05:51 POC Glucose (mg/dL) 225 H 193 H 120 H (70-110) mg/dL
[2023-01-21 16:46] LABS: Glucose,Whole Blood 286 mg/dL (70-110)
[2023-01-21 21:12] LABS: Glucose,Whole Blood 220 mg/dL (70-110)
[2023-01-21] MEDS: FERROUS SULFATE 325 MG TAB PO SCH (21:36)
[2023-01-21] MEDS: OLANZapine 2.5 MG TAB PO SCH (21:36)
[2023-01-21] MEDS: INSULIN DETEMIR (LEVEMIR) 100 UNIT/ML SYR SQ SCH (21:37)
[2023-01-22 05:39] LABS: Glucose,Whole Blood 109 mg/dL (70-110)
[2023-01-22] MEDS: INSULIN ASPART (NovoLOG) 100 UNIT/ML VIAL SQ SCH ×4 (05:52→20:32)
[2023-01-22] MEDS: carvediloL 12.5 MG TAB PO SCH ×2 (06:34→17:00)
[2023-01-22 08:03] LABS: Glucose,Whole Blood 132 mg/dL (70-110)
[2023-01-22 08:06] LABS: Basophils % (A) 0 %; Eosinophils # (A) 0.1 k/uL (0-0.7); Eosinophils % (A) 1 %; HCT 33.8 % (39.0-53.0); HGB 10.7 gm/dL (13.0-17.5); Hypochromasia Slight; Lymphocytes # (A) 1.1 k/uL (1.0-4.8); Lymphocytes % (A) 14 %; MCH 30.2 pg (25.0-35.0); MCHC 31.6 g/dL (31.0-37.0); MCV 95.5 fL (80.0-100.0); Mean Platelet Volume 8.2; Monocytes # (A) 0.8 k/uL (0-1.0); Monocytes % (A) 10 %; Neutrophils # (A) 5.5 k/uL (1.3-7.7); Neutrophils % (A) 72 %; Platelet Count 214 k/uL (150-450); RBC 3.54 m/uL (4.30-5.90); RDW 14.2 % (11.5-15.5); WBC 7.6 k/uL (3.8-10.6)
[2023-01-22 08:25] LABS: African American GFR (CKD) 79 (>60 ml/min/1.73 sqM); Anion Gap 7 mmol/L; Blood Urea Nitrogen 28 mg/dL (9-20); Calcium 7.7 mg/dL (8.4-10.2); Carbon Dioxide 28 mmol/L (22-30); Chloride 105 mmol/L (98-107); Glucose 101 mg/dL (74-99); Magnesium 2.2 mg/dL (1.6-2.3); Non-African American GFR(CKD) 68 (>60 ml/min/1.73 sqM); Potassium 3.9 mmol/L (3.5-5.1); Sodium 140 mmol/L (137-145)
[2023-01-22] MEDS: IPRATROPIUM-ALBUTEROL 3 ML NEB INHALATION SCH ×4 (08:31→21:24)
[2023-01-22 08:37] LABS: Glucose,Whole Blood 99 mg/dL (70-110)
--- NOTE | 2023-01-22 08:41 | XR ---
EXAMINATION TYPE: XR chest 1V portable DATE OF EXAM: 01/22/2023 8:22 AM COMPARISON: Chest radiographs from 01/18/2023 TECHNIQUE: XR chest 1V portable Frontal view of the chest. CLINICAL INDICATION:Male, 68 years old with history of Resp distress; FINDINGS: Lungs/Pleura: There is no evidence of pleural effusion, focal consolidation, or pneumothorax. Pulmonary vascularity: Unremarkable. Heart/mediastinum: Cardiomediastinal silhouette is enlarged and stable. Musculoskeletal: No acute osseous pathology. IMPRESSION: Cardiomegaly and mild pulmonary vascular congestion. Correlate with BNP for congestive heart failure.
[2023-01-22 08:45] LABS: Basophils # (A) 0.03 X 10*3/uL (0.00-0.10); Basophils % (A) 0.3 %; Eosinophils # (A) 0.13 X 10*3/uL (0.04-0.35); Eosinophils % (A) 1.5 %; HCT 34.5 % (39.6-50.0); HGB 10.6 d/dL (12.0-15.0); Lymphocytes # (A) 1.15 X 10*3/uL (0.90-5.00); Lymphocytes % (A) 13.4 %; MCH 29.8 pg (27.0-32.0); MCHC 30.7 d/dL (32.0-37.0); MCV 96.9 FL (80.0-97.0); Mean Platelet Volume 9.7 FL (9.5-12.2); Monocytes # (A) 1.22 X 10*3/uL (0.20-1.00); Monocytes % (A) 14.2 %; NRBC Per 100 WBC 0 X 10*3/uL (0.00-0.01); Neutrophils # (A) 6.03 X 10*3/uL (1.80-7.70); Neutrophils % (A) 70.3 %; Platelet Count 215 X 10*3/uL (140-440); RBC 3.56 X 10*6/uL (4.40-5.60); RDW 14.3 % (11.5-14.5); WBC 8.59 X 10*3/uL (4.50-10.00)
[2023-01-22] MEDS ORDERED: FUROSEMIDE 10 MG/ML 4 ML VIAL IV STA ×2 (08:45→23:27)
[2023-01-22 08:48] LABS: ALT 18 U/L (10-49); AST 29 U/L (14-35); Albumin 3.2 d/dL (3.8-4.9); Albumin/Globulin Ratio 1.39 Ratio (1.60-3.17); Alkaline Phosphatase 113 U/L (41-126); BUN/Creat Ratio 24.18 Ratio (12.00-20.00); Blood Urea Nitrogen 26.6 mg/dL (9.0-27.0); Calcium 8.1 mg/dL (8.7-10.3); Carbon Dioxide 24.7 mmol/L (21.6-31.8); Chloride 105 mmol/L (96-109); Globulin 2.3 d/dL (1.6-3.3); Glucose 104 mg/dL (70-110); Sodium 141 mmol/L (135-145); Total Bilirubin 0.4 mg/dL (0.3-1.2); Total Protein 5.5 d/dL (6.2-8.2)
[2023-01-22] MEDS: DEXMEDETOMIDINE/0.9% NACL(PMX) 400 MCG in EMPTY BAG 1 BAG IV SCH ×2 (09:00→11:45)
[2023-01-22] MEDS: CYANOCOBALAMIN 500 MCG TAB PO SCH (10:01)
[2023-01-22] MEDS: CHOLECALCIFEROL 25 MCG (1000 IU) TABLET PO SCH (10:01)
[2023-01-22] MEDS: APIXABAN 5 MG TAB PO SCH ×2 (10:01→22:25)
[2023-01-22] MEDS: ATORVASTATIN 10 MG TAB PO SCH (10:01)
[2023-01-22] MEDS: FLUoxetine HCL 20 MG CAP PO SCH (10:01)
[2023-01-22] MEDS: TAMSULOSIN 0.4 MG CAP.ER.24H PO SCH (10:02)
[2023-01-22] MEDS: SODIUM CHLORIDE 0.9% 1,000 ML IV SCH (10:20)
[2023-01-22 10:44] LABS: ABG HCO3 27 mmol/L (21-25); ABG Oxygen Saturation 98.9 % (94-97); ABG PCO2 45 mmHg (35-45); ABG PH 7.38 (7.35-7.45); ABG PO2 118 mmHg (83-108); ABG TCO2 28 mmol/L (19-24); Allen Test Performed? Yes
--- NOTE | 2023-01-22 11:23 | P.CNPUL ---
History of Present Illness Consult date: 01/22/23 Requesting physician: Jose Ho Reason for consult: dyspnea, other (Hypercapnia) Chief complaint: Altered mental status and confusion History of present illness: This is a 68-year-old white male with history of multiple medical problems, patient is known to have chronic atrial fibrillation, type 2 diabetes, obesity, patient was seen by us back on 12/13/2022, at that time the patient had acute h ypercapnia with morbid obesity and obstructive sleep apnea, patient was placed on BiPAP at the time with IPAP of 12 EPAP of 6, and cut down his FiO2 to 30%. His admission back then was mostly related to cellulitis of lower extremities with acute kidney injury, hypotension, treated back then with antibiotics, he was anticoagulated with eliquis, and he was seen by many consultants including nephrology for his renal failure. This time on 01/14/2023, patient apparently had a very similar presentation, he was sent from the [facility] mostly because of altered mental status, confusion, hallucinations, patient was claiming that he was seeing rabbits in his room. Admitted with acute delirium, and he was seen by psychiatry on consultation, nonetheless the patient continues to be restless agitated, and he was refusing to place his BiPAP on his face. I was notified about this patient, recommended immediate transfer to the ICU, placed on Precedex. And one hour later ABG was done while the patient was on BiPAP, showed a pO2 of 118 pCO2 of 45 and pH of 7.38. His pCO2 on admission was in the 60s. Patient called down nicely, and he seems to be responding well to Precedex and tolerating BiPAP quite nicely. He is on IPAP 14 EPAP of 6, and FiO2 of 30% could not get much history out of the patient as he seems to be agitated and restless upon arrival to the ICU Review of Systems ROS unobtainable: due to mental status Past Medical History Past Medical History: Atrial Fibrillation, Cancer, Diabetes Mellitus, Hyperlipidemia, Hypertension, Sleep Apnea/CPAP/BIPAP Additional Past Medical History / Comment(s): Basal cell carcinoma, Heart murmur History of Any Multi-Drug Resistant Organisms: None Reported Past Surgical History: No Surgical Hx Reported Additional Past Surgical History / Comment(s): Cataract surgery right eye Past Anesthesia/Blood Transfusion Reactions: No Reported Reaction Past Psychological History: Depression Smoking Status: Never smoker Past Alcohol Use History: None Reported Past Drug Use History: None Reported - Past Family History Mother Family Medical History: Diabetes Mellitus Medications and Allergies Home Medications Medication Instructions Recorded Confirmed Type Apixaban [Eliquis] 5 mg PO BID 04/11/17 01/18/23 History Cholecalciferol [Vitamin D3 (25 25 mcg PO DAILY 12/12/22 01/18/23 History Mcg = 1000 Iu)] FLUoxetine HCL [PROzac] 20 mg PO DAILY 12/12/22 01/18/23 History Ferrous Sulfate [Iron (65 MG 325 mg PO HS 12/12/22 01/18/23 History Elemental)] Insulin Glargine,Hum.rec.anlog 30 units SQ HS 12/12/22 01/18/23 History [Lantus Solostar Pen] Insulin Lispro [humaLOG Kwikpen] See Protocol SQ TID-W/MEALS 12/12/22 01/18/23 History Testosterone [Androgel 1.62% Gel 2 packet TOPICAL DAILY 12/12/22 01/18/23 Histo ry Packet] carvediloL [Coreg] 25 mg PO BID 12/12/22 01/18/23 History Atorvastatin [Lipitor] 10 mg PO DAILY tab 12/17/22 01/18/23 Rx Acetaminophen Tab [Tylenol] 500 mg PO Q6HR PRN 01/02/23 01/18/23 History Tamsulosin HCl [Flomax] 0.4 mg PO DAILY 01/02/23 01/18/23 History Vitamin B-12 100mcg 1 tab PO DAILY 01/02/23 01/18/23 History hydroCHLOROthiazide [Hydrodiuril] 25 mg PO DAILY PRN 01/18/23 01/18/23 History traMADol HCL 100 mg PO Q6H PRN 01/18/23 01/18/23 History Allergies Allergy/AdvReac Type Severity Reaction Status Date / Time famotidine [From Pepcid] Allergy Unknown Verified 01/18/23 22:11 Penicillins Allergy Rash/Hives Verified 01/18/23 23:26 hydrocodone AdvReac Hallucinati Verified 01/19/23 14:49 ons lisinopril [From Prinivil] AdvReac Cough Verified 01/18/23 22:11 Physical Exam Vitals: Vital Signs Temp Pulse Pulse Resp BP BP Pulse Ox 01/22/23 10:15 97.9 F 50 L 21 124/62 97 01/22/23 10:00 95.5 F L 49 L 23 121/59 97 01/22/23 09:45 50 L 26 H 121/59 97 01/22/23 09:30 49 L 26 H 112/55 97 01/22/23 09:15 50 L 23 120/55 97 01/22/23 09:00 61 29 H 136/52 01/22/23 08:45 59 L 22 144/59 97 01/22/23 08:30 45 H 01/22/23 08:13 01/22/23 07:57 01/22/23 07:45 98.3 F 62 24 168/76 96 01/22/23 07:38 68 119/74 99 01/22/23 02:00 99.6 F 63 18 134/60 93 L 01/22/23 00:52 01/21/23 21:54 01/21/23 21:19 68 01/21/23 21:10 68 01/21/23 19:20 98.8 F 68 19 131/65 100 01/21/23 16:58 74 01/21/23 16:48 78 01/21/23 13:45 98.8 F 65 19 151/61 96 01/21/23 12:51 70 01/21/23 12:43 74 FiO2 01/22/23 10:15 30 01/22/23 10:00 30 01/22/23 09:45 01/22/23 09:30 01/22/23 09:15 01/22/23 09:00 01/22/23 08:45 01/22/23 08:30 01/22/23 08:13 30 01/22/23 07:57 36 01/22/23 07:45 01/22/23 07:38 01/22/23 02:00 01/22/23 00:52 21 01/21/23 21:54 21 01/21/23 21:19 01/21/23 21:10 01/21/23 19:20 01/21/23 16:58 01/21/23 16:48 01/21/23 13:45 01/21/23 12:51 01/21/23 12:43 Intake and Output 01/21/23 01/22/23 01/22/23 22:59 06:59 14:59 Intake Total 8.395 Output Total 0 900 Balance 0 -891.605 Intake: Intake, IV Titration 8.395 Amount Dexmedetomidine/0.9% NaCl 8.395 (Pmx) 400 mcg In Empty Bag 1 bag @ 0.2 MCG/KG/HR 7.462 mls/hr IV .[id number] [facility] Rx#:[id number] Output: Urine 0 900 Other: Voiding Method Toilet Urinal # Voids 1 # Bowel Movements 1 1 GENERAL: Revealed a 68-year-old white male morbidly obese, obtunded, but arousa ble, does not follow any instructions. Head: Atraumatic, normocephalic. HEENT: Short obese neck. No neck masses. Pupils are round and equally reacting to light. EOMI. No scleral icterus. No conjunctival pallor. CARDIOVASCULAR: Distant S1 and S2, no S3 gallop, no murmur. PULMONARY: Symmetrical chest expansion diminished breath sounds at the bases no rhonchi no wheezes ABDOMEN: Obese, Soft, nontender, nondistended, normoactive bowel sounds. No palpable organomegaly. MUSCULOSKELETAL: No evidence of deformities. No limitations in range of motion. EXTREMITIES: Chronic venous stasis changes and cellulitis noted in both lower extremities NEUROLOGICAL: Opens eyes, does not verbally respond, does not follow instructions, easily agitated patient was just started on Precedex. SKIN: Chronic venous stasis changes in lower extremities and chronic cellulitis Results - Laboratory Findings CBC and BMP: 01/22/23 07:54 01/22/23 07:54 ABG ABG pH 7.38 (7.35-7.45) 01/22/23 10:41 ABG pCO2 45 mmHg (35-45) 01/22/23 10:41 ABG pO2 118 mmHg (83-108) H 01/22/23 10:41 ABG O2 Saturation 98.9 % (94-97) H 01/22/23 10:41 PT/INR, D-dimer PT 11.4 sec (9.0-12.0) 01/18/23 21:04 INR 1.1 (<1.2) 01/18/23 21:04 Abnormal lab findings: Abnormal Labs 01/18/23 01/18/2323 21:04 21:04 21:04 RBC 3.85 L Hgb 11.9 L Hct 36.4 L MCHC Monocytes # APTT 30.8 H ABG pO2 ABG HCO3 ABG Total CO2 ABG O2 Saturation VBG pH VBG pCO2 VBG HCO3 BUN 50 H Creatinine 1.38 H BUN/Creatinine Ratio Glucose 160 H POC Glucose (mg/dL) Hemoglobin A1c Calcium Total Protein 5.9 L Albumin 3.2 L Albumin/Globulin Ratio Ur Leukocyte Esterase Urine Mucus 01/18/23 01/19/23 01/19/23 21:04 07:53 09:30 RBC Hgb Hct MCHC Monocytes # APTT ABG pO2 ABG HCO3 ABG Total CO2 ABG O2 Saturation VBG pH 7.30 L VBG pCO2 60 H VBG HCO3 29 H BUN Creatinine BUN/Creatinine Ratio Glucose POC Glucose (mg/dL) 139 H Hemoglobin A1c Calcium Total Protein Albumin Albumin/Globulin Ratio Ur Leukocyte Esterase Small H Urine Mucus Rare H 01/19/23 01/19/23 01/19/23 11:31 16:59 20:20 RBC Hgb Hct MCHC Monocytes # APTT ABG pO2 ABG HCO3 ABG Total CO2 ABG O2 Saturation VBG pH VBG pCO2 VBG HCO3 BUN Creatinine BUN/Creatinine Ratio Glucose POC Glucose (mg/dL) 220 H 194 H 202 H Hemoglobin A1c Calcium Total Protein Albumin Albumin/Globulin Ratio Ur Leukocyte Esterase Urine Mucus 01/20/23 01/20/23 01/20/23 06:01 06:14 11:54 RBC Hgb Hct MCHC Monocytes # APTT ABG pO2 ABG HCO3 ABG Total CO2 ABG O2 Saturation VBG pH VBG pCO2 VBG HCO3 BUN Creatinine BUN/Creatinine Ratio Glucose POC Glucose (mg/dL) 112 H 179 H Hemoglobin A1c 7.9 H Calcium Total Protein Albumin Albumin/Globulin Ratio Ur Leukocyte Esterase Urine Mucus 01/20/23 01/20/23 01/21/23 16:57 21:20 05:51 RBC Hgb Hct MCHC Monocytes # APTT ABG pO2 ABG HCO3 ABG Total CO2 ABG O2 Saturation VBG pH VBG pCO2 VBG HCO3 BUN Creatinine BUN/Creatinine Ratio Glucose POC Glucose (mg/dL) 225 H 193 H 120 H Hemoglobin A1c Calcium Total Protein Albumin Albumin/Globulin Ratio Ur Leukocyte Esterase Urine Mucus 01/21/23 01/21/23 01/22/23 16:45 21:11 05:55 RBC 3.56 L Hgb 10.6 L Hct 34.5 L MCHC 30.7 L Monocytes # 1.22 H APTT ABG pO2 ABG HCO3 ABG Total CO2 ABG O2 Saturation VBG pH VBG pCO2 VBG HCO3 BUN Creatinine BUN/Creatinine Ratio Glucose POC Glucose (mg/dL) 286 H 220 H Hemoglobin A1c Calcium Total Protein Albumin Albumin/Globulin Ratio Ur Leukocyte Esterase Urine Mucus 01/22/23 01/22/23 01/22/23 05:55 07:35 07:54 RBC 3.54 L Hgb 10.7 L Hct 33.8 L MCHC Monocytes # APTT ABG pO2 ABG HCO3 ABG Total CO2 ABG O2 Saturation VBG pH VBG pCO2 VBG HCO3 BUN Creatinine BUN/Creatinine Ratio 24.18 H Glucose POC Glucose (mg/dL) 132 H Hemoglobin A1c Calcium 8.1 L Total Protein 5.5 L Albumin 3.2 L Albumin/Globulin Ratio 1.39 L Ur Leukocyte Esterase Urine Mucus 01/22/23 01/22/23 07:54 10:41 RBC Hgb Hct MCHC Monocytes # APTT ABG pO2 118 H ABG HCO3 27 H ABG Total CO2 28 H ABG O2 Saturation 98.9 H VBG pH VBG pCO2 VBG HCO3 BUN 28 H Creatinine BUN/Creatinine Ratio Glucose 101 H POC Glucose (mg/dL) Hemoglobin A1c Calcium 7.7 L Total Protein Albumin Albumin/Globulin Ratio Ur Leukocyte Esterase Urine Mucus - Diagnostic Findings Chest x-ray: image reviewed (Minimal pulmonary vascular congestion otherwise unremarkable.) Assessment and Plan Assessment: Impression: Acute on chronic hypercapnic respiratory failure Acute metabolic encephalopathy secondary to hypercapnia Chronic lower extremity cellulitis/right leg cellulitis Chronic atrial fibrillation Type 2 diabetes with possible diabetic nephropathy Benign essential hypertension dyslipidemia Chronic ulcer of right calf Morbid obesity BMI of over 40 Recommendation: Continue to monitor the patient in the ICU Continue Precedex and titrate accordingly Continue BiPAP for now, ABG is improving Continue cardiac medications and eliquis. Continue Zyprexa as ordered by psychiatry Continue Prozac. We will continue to follow. Antibiotics as per infectious disease on the case Time with Patient: Greater than 30
[2023-01-22 11:53] LABS: Glucose,Whole Blood 93 mg/dL (70-110)
[2023-01-22 18:21] LABS: Glucose,Whole Blood 66 mg/dL (70-110)
[2023-01-22] MEDS: DEXTROSE 50% SYRINGE 50 ML IVP PRN (18:31)
[2023-01-22] MEDS ORDERED: Potassium Replacement Protocol 1 EACH MISC MISCELLANE PRN (18:39)
[2023-01-22] MEDS: POTASSIUM CHLORIDE 10 MEQ in WATER FOR INJECTION 1 100ML.BAG IVPB SCH ×2 (18:46→19:50)
[2023-01-22 18:50] LABS: Glucose,Whole Blood 101 mg/dL (70-110)
[2023-01-22 20:25] LABS: Glucose,Whole Blood 85 mg/dL (70-110)
[2023-01-22] MEDS: INSULIN DETEMIR (LEVEMIR) 100 UNIT/ML SYR SQ SCH (20:32)
[2023-01-22 22:25] LABS: Glucose,Whole Blood 96 mg/dL (70-110)
[2023-01-22] MEDS: FERROUS SULFATE 325 MG TAB PO SCH (22:25)
[2023-01-22] MEDS: OLANZapine 2.5 MG TAB PO SCH (22:25)
[2023-01-23 04:40] LABS: Basophils % (A) 0 %; Eosinophils # (A) 0.3 k/uL (0-0.7); Eosinophils % (A) 4 %; HCT 36.7 % (39.0-53.0); HGB 11.6 gm/dL (13.0-17.5); Hypochromasia Moderate; Lymphocytes # (A) 1.1 k/uL (1.0-4.8); Lymphocytes % (A) 14 %; MCH 30.4 pg (25.0-35.0); MCHC 31.6 g/dL (31.0-37.0); MCV 96.2 fL (80.0-100.0); Mean Platelet Volume 7.9; Monocytes # (A) 0.7 k/uL (0-1.0); Monocytes % (A) 9 %; Neutrophils # (A) 5.7 k/uL (1.3-7.7); Neutrophils % (A) 72 %; Platelet Count 242 k/uL (150-450); RBC 3.81 m/uL (4.30-5.90)
[2023-01-23 04:54] LABS: African American GFR (CKD) 84 (>60 ml/min/1.73 sqM); Anion Gap 7 mmol/L; Blood Urea Nitrogen 30 mg/dL (9-20); Carbon Dioxide 28 mmol/L (22-30); Chloride 105 mmol/L (98-107); Glucose 65 mg/dL (74-99); Non-African American GFR(CKD) 73 (>60 ml/min/1.73 sqM); Potassium 4.1 mmol/L (3.5-5.1); Sodium 140 mmol/L (137-145)
--- NOTE | 2023-01-23 05:09 | P.PN ---
Subjective Progress Note Date: 01/22/23 patient is 68-year-old gentleman with past medical history significant for atrial fibrillation, diabetes mellitus type 2, hyperlipidemia, hypertension, obstructive sleep apnea, basal cell carcinoma, depression Who presented to The hospital because of hallucinations. Patient was recently in the hospital because of encephalopathy and right lower extremity cellulitis, was discharged on doxycycline for 10 days. Patient was discharged to half-way facility, he has been intermittently confused over there. Patient has been complaining of hallucinations mostly visual, stating that he was seeing rabbits in his room. No complaint of fever or chills. No complaints of nausea or vomiting. Redness of right lower extremity has improved. Because of this increasing episodes of confusion, patient was brought to the ER Initial lab work in the ER showed WBC 7.1, hemoglobin 11.9, sodium 137, pot assium 4.3, BUN 50, creatinine 1.3. CT brain showed atrophy, minimal mucosal thickening within the anterior left right ethmoid air cells, no evidence of acute hemorrhage or stroke Chest x-ray negative for any acute cardiac process Patient was admitted to medicine service 01/21. Patient seen and examined. Confusion has improved. Still complaining of weakness 01/22/2023 Patient is seen and evaluated in follow-up this morning and has been brought to the ICU for increased confusion patient being obtunded and patient is currently on BiPAP with multiple medical consultations following. Patient is not tolerating oral intake and now waking up enough and is currently nothing by mouth. Patient is maintained on Precedex drip as nursing staff reports he was extremely restless while continuing to be obtunded. Continued on IV cefazolin with infectious disease following for right lower extremity cellulitis. Pulmonary is now following and patient is maintained on BiPAP with an FiO2 of 30% and will continue. Titrate as tolerated. Recommend follow-up labs REVIEW OF SYSTEMS: Unable to completely assess as patient is obtunded and maintained on Precedex PHYSICAL EXAMINATION: GENERAL: The patient is alert and oriented x0, obtunded and unresponsive, currently sedated on Precedex. Well developed, well nourished. Morbid the obese. Maintained on BiPAP at 30% FiO2 HEENT: Pupils are round and equally reacting to light. EOMI. No scleral icterus. No conjunctival pallor. Normocephalic, atraumatic. No pharyngeal erythema. No thyromegaly. CARDIOVASCULAR: S1 and S2 present. No murmurs, rubs, or gallops. PULMONARY: Diminished breath sounds bilaterally with some coarse rhonchi noted ABDOMEN: Soft, obese, nontender, nondistended, normoactive bowel sounds. No palpable organomegaly. MUSCULOSKELETAL: No joint swelling or deformity. EXTREMITIES: Right lower extremity wound seen, erythema improved, dressing noted dry and intact NEUROLOGICAL: Gross neurological examination did not reveal any focal deficits. SKIN: No rashes. Assessment: Acute delirium with hallucinations, possibly medication effect, toxic/metabolic encephalopathy Acute on chronic hypoxic respiratory failure secondary to sleep apnea, now requiring BiPAP is right lower extremity cellulitis Atrial fibrillation history Insulin-dependent diabetes mellitus, uncontrolled with hypoglycemia secondary to nothing by mouth status Hypertension Hyperlipidemia Morbid obesity with BMI of 43.4 GI prophylaxis DVT prophylaxis Full code Plan: Recommend to monitor closely in the ICU maintained on BiPAP with pulmonary now following and recommended follow-up labs chest x-ray Avoid using any narcotics or benzos. Continue with medications as mentioned by psychiatry Patient currently nothing by mouth as patient is maintained on Precedex and obtunded not following commands Continue with BiPAP and wean as tolerated Recommend monitoring blood sugars closely as patient is not eating and will discontinue long-acting and continue sliding scale as needed Patient currently maintained on IV cefazolin for right lower extremity cellulitis with infectious disease following. Recommend continue local wound care. Patient will be returning to [facility] with social work following once stabilized and discharged The impression and plan of care has been dictated by Laura Peguero, Nurse Practitioner as directed. MD Le I have performed a history and examination and MDM of this patient, discussed the same with the dictator, and agree with the dictator's assessment and plan as written ,documented as a scribe. Based on total visit time, I have performed more than 50% of the visit. Objective - Vital Signs Vital signs: Vital Signs Temp 98.3 F 01/22/23 07:45 Pulse 62 01/22/23 07:45 Resp 24 01/22/23 07:45 BP 168/76 01/22/23 07:45 Pulse Ox 96 01/22/23 07:45 FiO2 30 01/22/23 08:13 Intake & Output 01/21/23 01/22/23 01/22/23 18:59 06:59 18:59 Output Total 0 Balance 0 Output: Urine 0 Other: Voiding Method Toilet Urinal # Voids 1 # Bowel Movements 1 - Labs CBC & Chem 7: 01/23/23 03:51 01/23/23 03:51 Labs: Abnormal Lab Results - Last 24 Hours (Table) 01/21/23 01/21/23 01/22/23 Range/Units 16:45 21:11 05:55 RBC 3.56 L (4.40-5.60) X 10*6/uL Hgb 10.6 L (12.0-15.0) d/dL Hct 34.5 L (39.6-50.0) % MCHC 30.7 L (32.0-37.0) d/dL Monocytes # 1.22 H (0.20-1.00) X 10*3/uL BUN (9-20) mg/dL BUN/Creatinine Ratio (12.00-20.00) Ratio Glucose (74-99) mg/dL POC Glucose (mg/dL) 286 H 220 H (70-110) mg/dL Calcium (8.7-10.3) mg/dL Total Protein (6.2-8.2) d/dL Albumin (3.8-4.9) d/dL Albumin/Globulin Ratio (1.60-3.17) Ratio 01/22/23 01/22/23 01/22/23 Range/Units 05:55 07:35 07:54 RBC 3.54 L (4.40-5.60) X 10*6/uL Hgb 10.7 L (12.0-15.0) d/dL Hct 33.8 L (39.6-50.0) % MCHC (32.0-37.0) d/dL Monocytes # (0.20-1.00) X 10*3/uL BUN (9-20) mg/dL BUN/Creatinine Ratio 24.18 H (12.00-20.00) Ratio Glucose (74-99) mg/dL POC Glucose (mg/dL) 132 H (70-110) mg/dL Calcium 8.1 L (8.7-10.3) mg/dL Total Protein 5.5 L (6.2-8.2) d/dL Albumin 3.2 L (3.8-4.9) d/dL Albumin/Globulin Ratio 1.39 L (1.60-3.17) Ratio // Range/Units 07:54 RBC (4.40-5.60) X 10*6/uL Hgb (12.0-15.0) d/dL Hct (39.6-50.0) % MCHC (32.0-37.0) d/dL Monocytes # (0.20-1.00) X 10*3/uL BUN 28 H (9-20) mg/dL BUN/Creatinine Ratio (12.00-20.00) Ratio Glucose 101 H (74-99) mg/dL POC Glucose (mg/dL) (70-110) mg/dL Calcium 7.7 L (8.7-10.3) mg/dL Total Protein (6.2-8.2) d/dL Albumin (3.8-4.9) d/dL Albumin/Globulin Ratio (1.60-3.17) Ratio
[2023-01-23] MEDS: INSULIN ASPART (NovoLOG) 100 UNIT/ML VIAL SQ SCH ×4 (05:23→21:37)
[2023-01-23] MEDS: DEXTROSE 50% SYRINGE 50 ML IVP PRN (05:32)
[2023-01-23 06:07] LABS: Glucose,Whole Blood 104 mg/dL (70-110)
--- NOTE | 2023-01-23 07:12 | XR ---
EXAMINATION TYPE: XR chest 1V portable DATE OF EXAM: 01/23/2023 5:24 AM COMPARISON: Chest radiographs from 01/22/2023 TECHNIQUE: XR chest 1V portable Portable AP radiograph of the chest. CLINICAL INDICATION:Male, 68 years old with history of CHF exacerbation; FINDINGS: Patient is rotated which limits evaluation. Lungs/Pleura: There is no evidence of pleural effusion, focal consolidation, or pneumothorax. Pulmonary vascularity: Unremarkable. Heart/mediastinum: Cardiomediastinal silhouette is unremarkable. Musculoskeletal: No acute osseous pathology. IMPRESSION: No acute cardiopulmonary disease/process.
[2023-01-23] MEDS: IPRATROPIUM-ALBUTEROL 3 ML NEB INHALATION SCH ×4 (07:54→20:23)
[2023-01-23] MEDS: CHOLECALCIFEROL 25 MCG (1000 IU) TABLET PO SCH (10:17)
[2023-01-23] MEDS: ATORVASTATIN 10 MG TAB PO SCH (10:17)
[2023-01-23] MEDS: CYANOCOBALAMIN 500 MCG TAB PO SCH (10:17)
[2023-01-23] MEDS: APIXABAN 5 MG TAB PO SCH ×2 (10:17→21:37)
[2023-01-23] MEDS: TAMSULOSIN 0.4 MG CAP.ER.24H PO SCH (10:17)
[2023-01-23] MEDS: FLUoxetine HCL 20 MG CAP PO SCH (10:18)
[2023-01-23] MEDS: ACETAMINOPHEN TAB 500 MG TAB PO PRN ×2 (10:18→21:36)
[2023-01-23] MEDS: carvediloL 12.5 MG TAB PO SCH ×2 (10:18→16:46)
[2023-01-23 10:26] VITALS: BMI 43.6
[2023-01-23 11:43] LABS: Glucose,Whole Blood 199 mg/dL (70-110)
--- NOTE | 2023-01-23 11:47 | P.PN ---
Subjective Progress Note Date: 01/23/23 Principal diagnosis: Acute on chronic hypercapnic respiratory failure, with right lower extremity cellulitis, possible sepsis. This is a 68-year-old white male with history of multiple medical problems, patient is known to have chronic atrial fibrillation, type 2 diabetes, obesity, patient was seen by us back on 12/13/2022, at that time the patient had acute hypercapnia with morbid obesity and obstructive sleep apnea, patient was placed on BiPAP at the time with IPAP of 12 EPAP of 6, and cut down his FiO2 to 30%. His admission back then was mostly related to cellulitis of lower extremities with acute kidney injury, hypotension, treated back then with antibiotics, he was anticoagulated with eliquis, and he was seen by many consultants including nephrology for his renal failure. This time on 01/14/2023, patient apparently had a very similar presentation, [facility] because of altered mental status, confusion, hallucinations, patient was claiming that he was seeing rabbits in his room. Admitted with acute delirium, and he was seen by psychiatry on consultation, nonetheless the patient continues to be restless agitated, and he was refusing to place his BiPAP on his face. I was notified about this patient, recommended immediate transfer to the ICU, placed on Precedex. And one hour later ABG was done while the patient was on BiPAP, showed a pO2 of 118 pCO2 of 45 and pH of 7.38. His pCO2 on admission was in the 60s. Patient called down nicely, and he seems to be responding well to Precedex and tolerating BiPAP quite nicely. He is on IPAP 14 EPAP of 6, and FiO2 of 30% could not get much history out of the patient as he seems to be agitated and restless upon arrival to the ICU Reevaluated today on , patient remains in the ICU, remains on BiPAP 14/6/30%, remains on Precedex at 0.12 mcg/kg/h, weaning to Precedex and we will likely discontinue this morning. Patient remains calm, does not seem to be in any distress, his mental status is improving, seems to be more oriented and more appropriate today, although he is a bit slow. Labs today showed the incentive 8 hemoglobin 11., electrolytes and renal profile are normal, chest x-ray showed no evidence of active disease. Objective - Vital Signs Vital signs: Vital Signs Temp 100.3 F H 01/23/23 08:30 Pulse 58 L 01/23/23 11:36 Resp 22 01/23/23 11:00 BP 111/43 01/23/23 11:00 Pulse Ox 96 01/23/23 11:00 FiO2 30 01/23/23 08:30 Intake & Output 01/22/23 01/23/23 01/23/23 18:59 06:59 18:59 Intake Total 199.240 200 734.463 Output Total 2400 925 105 Balance -2200.760 -725 629.463 Weight 150.1 kg 150.1 kg Intake: IV 80 0.9 kvo 30 ceFAZolin 2 gm In Sodium 50 Chloride 0.9% 50 ml @ 100 mls/hr IVPB Q8HR [facility] Rx# :[id number] Intake, IV Titration 199.240 200 46.463 Amount Dexmedetomidine/0.9% NaCl 99.240 46.463 (Pmx) 400 mcg In Empty Bag 1 bag @ 0.2 MCG/KG/HR 7.462 mls/hr IV .[id number] [facility] Rx#:[id number] Potassium Chloride 10 meq 200 In Water For Injection 1 100ml.bag @ 100 mls/hr IVPB Q1H [facility] Rx#: [id number] Sodium Chloride 0.9% 1, 0 000 ml @ 75 mls/hr IV . [id number] [facility] Rx#:[id number] ceFAZolin 2 gm In Sodium 100 Chloride 0.9% 50 ml @ 100 mls/hr IVPB Q8HR [facility] Rx# :[id number] Oral 0 608 Output: Urine 2400 925 105 Other: Voiding Method Indwelling Catheter Indwelling Catheter # Bowel Movements 1 - Exam GENERAL: Revealed a 68-year-old white male morbidly obese, awake, responsive, alert oriented 3, on BiPAP. Head: Atraumatic, normocephalic. HEENT: Short obese neck. No neck masses. Pupils are round and equally reacting to light. EOMI. No scleral icterus. No conjunctival pallor. CARDIOVASCULAR: Distant S1 and S2, no S3 gallop, no murmur. PULMONARY: Symmetrical chest expansion diminished breath sounds at the bases no rhonchi no wheezes ABDOMEN: Obese, Soft, nontender, nondistended, normoactive bowel sounds. No palpable organomegaly. MUSCULOSKELETAL: No evidence of deformities. No limitations in range of motion. EXTREMITIES: Chronic venous stasis changes and cellulitis noted in both lower extremities NEUROLOGICAL: Awake, alert oriented 3, no focal deficit except the patient is a bit slow remains on Precedex which is being titrated SKIN: Chronic venous stasis changes in lower extremities and chronic cellulitis - Labs CBC & Chem 7: 01/23/23 03:51 01/23/23 03:51 Labs: Abnormal Lab Results - Last 24 Hours (Table) 01/22/23 01/23/23 01/23/23 Range/Units 18:20 03:51 03:51 RBC 3.81 L (4.30-5.90) m/uL Hgb 11.6 L (13.0-17.5) gm/dL Hct 36.7 L (39.0-53.0) % BUN 30 H (9-20) mg/dL Glucose 65 L (74-99) mg/dL POC Glucose (mg/dL) 66 L (70-110) mg/dL Calcium 8.0 L (8.4-10.2) mg/dL Assessment and Plan Assessment: Impression: Acute on chronic hypercapnic respiratory failure Acute metabolic encephalopathy secondary to hypercapnia Chronic lower extremity cellulitis/right leg cellulitis, possible sepsis Chronic atrial fibrillation Type 2 diabetes with possible diabetic nephropathy Benign essential hypertension dyslipidemia Chronic ulcer of right calf Morbid obesity BMI of over 40 Recommendation: Taper and possibly discontinue Precedex today. Transition BiPAP to nasal cannula Continue to monitor in ICU for the next 24 hours Continue antibiotics as per infectious disease on the case. Continue cardiac medications and eliquis. Continue Zyprexa as ordered by psychiatry Continue Prozac. We will continue to follow. Time with Patient: Less than 30
[2023-01-23] MEDS ORDERED: DEXTROSE 50% SYRINGE 50 ML IVP PRN ×2 (13:19)
[2023-01-23] MEDS: traMADol 50 MG TAB PO PRN (13:59)
[2023-01-23] MEDS: DEXMEDETOMIDINE/0.9% NACL(PMX) 400 MCG in EMPTY BAG 1 BAG IV SCH (15:10)
[2023-01-23 16:27] LABS: Glucose,Whole Blood 267 mg/dL (70-110)
[2023-01-23 21:15] LABS: Glucose,Whole Blood 243 mg/dL (70-110)
[2023-01-23] MEDS: FERROUS SULFATE 325 MG TAB PO SCH (21:36)
[2023-01-23] MEDS: OLANZapine 2.5 MG TAB PO SCH (21:37)
[2023-01-23] MEDS: INSULIN DETEMIR (LEVEMIR) 100 UNIT/ML SYR SQ SCH (21:37)
--- NOTE | 2023-01-23 21:37 | P.PN ---
Subjective Progress Note Date: 01/23/23 patient is 68-year-old gentleman with past medical history significant for atrial fibrillation, diabetes mellitus type 2, hyperlipidemia, hypertension, obstructive sleep apnea, basal cell carcinoma, depression Who presented to The hospital because of hallucinations. Patient was recently in the hospital because of encephalopathy and right lower extremity cellulitis, was discharged on doxycycline for 10 days. Patient was discharged to care home facility, he has been intermittently confused over there. Patient has been complaining of hallucinations mostly visual, stating that he was seeing rabbits in his room. No complaint of fever or chills. No complaints of nausea or vomiting. Redness of right lower extremity has improved. Because of this increasing episodes of confusion, patient was brought to the ER Initial lab work in the ER showed WBC 7.1, hemoglobin 11.9, sodium 137, pot assium 4.3, BUN 50, creatinine 1.3. CT brain showed atrophy, minimal mucosal thickening within the anterior left right ethmoid air cells, no evidence of acute hemorrhage or stroke Chest x-ray negative for any acute cardiac process Patient was admitted to medicine service 01/21. Patient seen and examined. Confusion has improved. Still complaining of weakness 01/22/2023 Patient is seen and evaluated in follow-up this morning and has been brought to the ICU for increased confusion patient being obtunded and patient is currently on BiPAP with multiple medical consultations following. Patient is not tolerating oral intake and now waking up enough and is currently nothing by mouth. Patient is maintained on Precedex drip as nursing staff reports he was extremely restless while continuing to be obtunded. Continued on IV cefazolin with infectious disease following for right lower extremity cellulitis. Pulmonary is now following and patient is maintained on BiPAP with an FiO2 of 30% and will continue. Titrate as tolerated. Recommend follow-up labs 01/23/2023 Patient is seen and evaluated and continues to be in the ICU on BiPAP overnight although transition to 3 L nasal cannula much more awake and alert today. Patient able to tolerate some oral intake and take medications. Patient is lethargic and report still feeling weak. PT/OT therapy consulted. Patient's blood sugars were lower due to nothing by mouth status yesterday although is tolerating diet will resume long-acting and continue sliding scale for now. Patient is alert and oriented 2-3 not reporting any signs of hallucinations. Patient medications adjusted and patient has been weaned off Precedex. Patient continues on local wound care and IV cefazolin with infectious disease following for right lower extremity cellulitis. Patient will continue on oral Keflex on discharge. Family is looking into other possible ECF locations and he was most recently currently staying at [facility]. Patient's family also concerned he has been having steady decline lately and becomes more confused at night. Patient being monitored in the ICU overnight with possible transfer out. Will discuss with case management and other consultations about possible discharge planning. Review of systems: Constitutional: reports of fatigue, no fever, or chills, reports some generalized back pain and body aches Cardiovascular: No reports of chest pain or palpitations Respiratory: No reports of worsening shortness of breath and reports feels somewhat improved GI: No reports of nausea, vomiting, or diarrhea : No reports of dysuria or retention Neurovascular: reports of weakness or numbness All medications have been reviewed PHYSICAL EXAMINATION: GENERAL: The patient is alert and oriented x2-3, appears fatigued and somewhat slow although much more alert and awake today. Well developed, well nourished. Morbidly obese. Maintained on 3 L via nasal cannula and was on BiPAP at night HEENT: Pupils are round and equally reacting to light. EOMI. No scleral icterus. No conjunctival pallor. Normocephalic, atraumatic. No pharyngeal erythema. No thyromegaly. CARDIOVASCULAR: S1 and S2 present. No murmurs, rubs, or gallops. PULMONARY: Diminished breath sounds bilaterally with some coarse rhonchi noted ABDOMEN: Soft, obese, nontender, nondistended, normoactive bowel sounds. No palpable organomegaly. MUSCULOSKELETAL: No joint swelling or deformity. EXTREMITIES: Right lower extremity wound seen, erythema improved, dressing noted dry and intact NEUROLOGICAL: Gross neurological examination did not reveal any focal deficits. Diffusely weak SKIN: No rashes. Assessment: Acute delirium with hallucinations, possibly medication effect, toxic/metabolic encephalopathy, improving Acute on chronic hypoxic respiratory failure secondary to sleep apnea, now requiring BiPAP, currently on 3 L via nasal cannula today right lower extremity cellulitis Atrial fibrillation history Insulin-dependent diabetes mellitus, uncontrolled with hypoglycemia secondary to nothing by mouth status, trending up and will resume sliding scale and long- acting at night Hypertension Hyperlipidemia Morbid obesity with BMI of 43.4 GI prophylaxis DVT prophylaxis Full code Plan: Recommend to monitor closely in the ICU with intermittent use on BiPAP with pulmonary following and currently maintained on 3 L via nasal cannula Continue with medications as mentioned by psychiatry. Limit the use of narcotics and will add low-dose as needed Ultram and discuss with nursing staff about using Tylenol for his joint pain Patient has been weaned off Precedex and able to tolerate oral intake, encouraged oral intake and medications resumed Per nursing staff, family reports patient has been noncompliant with oxygen use and did used to use a CPAP although did not tolerate Recommend monitoring blood sugars closely as patient now eating again and will continue sliding scale and add long-acting at night Patient currently maintained on IV cefazolin for right lower extremity cellulitis with infectious disease following. We will transition to oral Keflex on discharge. Recommend continue local wound care. Patient will need ECF and was at [facility] with social work following and family discussing other possible options. Will follow up with social work in the a.m. and encouraged to submit for insurance authorization with consideration of possible discharge in the next 24-48 hours. The impression and plan of care has been dictated by Laura Peguero, Nurse Practitioner as directed. MD Le I have performed a history and examination and MDM of this patient, discussed the same with the dictator, and agree with the dictator's assessment and plan as written ,documented as a scribe. Based on total visit time, I have performed more than 50% of the visit. Objective - Vital Signs Vital signs: Vital Signs Temp 98.0 F 01/23/23 04:00 Pulse 54 L 01/23/23 08:08 Resp 16 01/23/23 07:00 BP 121/63 01/23/23 07:00 Pulse Ox 95 01/23/23 07:00 FiO2 30 01/23/23 07:56 Intake & Output 01/22/23 01/23/23 01/23/23 18:59 06:59 18:59 Intake Total 199.240 200 Output Total 2400 925 Balance -2200.760 -725 Weight 150.1 kg Intake: Intake, IV Titration 199.240 200 Amount Dexmedetomidine/0.9% NaCl 99.240 (Pmx) 400 mcg In Empty Bag 1 bag @ 0.2 MCG/KG/HR 7.462 mls/hr IV .[id number] [facility] Rx#:[id number] Potassium Chloride 10 meq 200 In Water For Injection 1 100ml.bag @ 100 mls/hr IVPB Q1H [facility] Rx#: [id number] Sodium Chloride 0.9% 1, 0 000 ml @ 75 mls/hr IV . [id number] [facility] Rx#:[id number] ceFAZolin 2 gm In Sodium 100 Chloride 0.9% 50 ml @ 100 mls/hr IVPB Q8HR [facility] Rx# :[id number] Oral 0 Output: Urine 2400 925 Other: Voiding Method Indwelling Catheter Indwelling Catheter # Bowel Movements 1 - Labs CBC & Chem 7: 01/23/23 03:51 01/23/23 03:51 Labs: Abnormal Lab Results - Last 24 Hours (Table) 01/22/23 01/22/23 01/23/23 Range/Units 10:41 18:20 03:51 RBC 3.81 L (4.30-5.90) m/uL Hgb 11.6 L (13.0-17.5) gm/dL Hct 36.7 L (39.0-53.0) % ABG pO2 118 H (83-108) mmHg ABG HCO3 27 H (21-25) mmol/L ABG Total CO2 28 H (19-24) mmol/L ABG O2 Saturation 98.9 H (94-97) % BUN (9-20) mg/dL Glucose (74-99) mg/dL POC Glucose (mg/dL) 66 L (70-110) mg/dL Calcium (8.4-10.2) mg/dL 01/23/23 Range/Units 03:51 RBC (4.30-5.90) m/uL Hgb (13.0-17.5) gm/dL Hct (39.0-53.0) % ABG pO2 (83-108) mmHg ABG HCO3 (21-25) mmol/L ABG Total CO2 (19-24) mmol/L ABG O2 Saturation (94-97) % BUN 30 H (9-20) mg/dL Glucose 65 L (74-99) mg/dL POC Glucose (mg/dL) (70-110) mg/dL Calcium 8.0 L (8.4-10.2) mg/dL
[2023-01-23] MEDS: FUROSEMIDE 10 MG/ML 4 ML VIAL IV SCH (21:38)
[2023-01-24 04:30] LABS: African American GFR (CKD) 59 (>60 ml/min/1.73 sqM); Anion Gap 6 mmol/L; Blood Urea Nitrogen 42 mg/dL (9-20); Calcium 7.5 mg/dL (8.4-10.2); Carbon Dioxide 27 mmol/L (22-30); Chloride 101 mmol/L (98-107); Glucose 172 mg/dL (74-99); Non-African American GFR(CKD) 51 (>60 ml/min/1.73 sqM); Potassium 4.1 mmol/L (3.5-5.1); Sodium 134 mmol/L (137-145)
--- NOTE | 2023-01-24 07:53 | P.PN ---
Subjective Progress Note Date: 01/22/23 Principal diagnosis: Right leg cellulitis Patient is a 76-year-old male with a past medical history significant diabetes mellitus hypertension hyperlipidemia obstructive sleep apnea atrial fibrillation with recent admission to the hospital and has been treated for right lower extremity ulceration and cellulitis , presenting back to the hospital with visual hallucination and noticed to having the ulceration to the right lower extremity concern for cellulitis. On today's evaluation that is 01/22/2023, the patient is afebrile , patient did have worsening of his respiratory status for the patient be transferred out of the ICU and the patient is currently on a BiPAP lethargic unable to provide any history no vomiting diarrhea or any other changes reported Objective - Vital Signs Vital signs: Vital Signs Temp 97.9 F 01/22/23 10:15 Pulse 50 L 01/22/23 10:15 Resp 21 01/22/23 10:15 BP 124/62 01/22/23 10:15 Pulse Ox 97 01/22/23 10:15 FiO2 30 01/22/23 10:15 Intake & Output 01/21/23 01/22/23 01/22/23 18:59 06:59 18:59 Intake Total 8.395 Output Total 0 900 Balance 0 -891.605 Intake: Intake, IV Titration 8.395 Amount Dexmedetomidine/0.9% NaCl 8.395 (Pmx) 400 mcg In Empty Bag 1 bag @ 0.2 MCG/KG/HR 7.462 mls/hr IV .[id number] [facility] Rx#:[id number] Output: Urine 0 900 Other: Voiding Method Toilet Urinal # Voids 1 # Bowel Movements 1 1 - Exam GENERAL DESCRIPTION: An elderly male lying in bed in no distress RESPIRATORY SYSTEM: Unlabored breathing , decreased breath sounds at bases HEART: S1 S2 regular rate and rhythm , ABDOMEN: Soft , no tenderness EXTREMITIES: Right leg is currently dressed no drainage on the dressing - Labs CBC & Chem 7: 01/23/23 03:51 01/24/23 03:39 Labs: Abnormal Lab Results - Last 24 Hours (Table) 01/21/23 01/21/23 01/22/23 Range/Units 16:45 21:11 05:55 RBC 3.56 L (4.40-5.60) X 10*6/uL Hgb 10.6 L (12.0-15.0) d/dL Hct 34.5 L (39.6-50.0) % MCHC 30.7 L (32.0-37.0) d/dL Monocytes # 1.22 H (0.20-1.00) X 10*3/uL ABG pO2 (83-108) mmHg ABG HCO3 (21-25) mmol/L ABG Total CO2 (19-24) mmol/L ABG O2 Saturation (94-97) % BUN (9-20) mg/dL BUN/Creatinine Ratio (12.00-20.00) Ratio Glucose (74-99) mg/dL POC Glucose (mg/dL) 286 H 220 H (70-110) mg/dL Calcium (8.7-10.3) mg/dL Total Protein (6.2-8.2) d/dL Albumin (3.8-4.9) d/dL Albumin/Globulin Ratio (1.60-3.17) Ratio 01/22/23 01/22/23 01/22/23 Range/Units 05:55 07:35 07:54 RBC 3.54 L (4.40-5.60) X 10*6/uL Hgb 10.7 L (12.0-15.0) d/dL Hct 33.8 L (39.6-50.0) % MCHC (32.0-37.0) d/dL Monocytes # (0.20-1.00) X 10*3/uL ABG pO2 (83-108) mmHg ABG HCO3 (21-25) mmol/L ABG Total CO2 (19-24) mmol/L ABG O2 Saturation (94-97) % BUN (9-20) mg/dL BUN/Creatinine Ratio 24.18 H (12.00-20.00) Ratio Glucose (74-99) mg/dL POC Glucose (mg/dL) 132 H (70-110) mg/dL Calcium 8.1 L (8.7-10.3) mg/dL Total Protein 5.5 L (6.2-8.2) d/dL Albumin 3.2 L (3.8-4.9) d/dL Albumin/Globulin Ratio 1.39 L (1.60-3.17) Ratio 01/22/23 01/22/23 Range/Units 07:54 10:41 RBC (4.40-5.60) X 10*6/uL Hgb (12.0-15.0) d/dL Hct (39.6-50.0) % MCHC (32.0-37.0) d/dL Monocytes # (0.20-1.00) X 10*3/uL ABG pO2 118 H (83-108) mmHg ABG HCO3 27 H (21-25) mmol/L ABG Total CO2 28 H (19-24) mmol/L ABG O2 Saturation 98.9 H (94-97) % BUN 28 H (9-20) mg/dL BUN/Creatinine Ratio (12.00-20.00) Ratio Glucose 101 H (74-99) mg/dL POC Glucose (mg/dL) (70-110) mg/dL Calcium 7.7 L (8.7-10.3) mg/dL Total Protein (6.2-8.2) d/dL Albumin (3.8-4.9) d/dL Albumin/Globulin Ratio (1.60-3.17) Ratio Assessment and Plan (1) Cellulitis of right leg Current Visit: Yes Status: Acute Code(s): L03.115 - CELLULITIS OF RIGHT LOWER LIMB SNOMED Code(s): 622661079 (2) 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 exposed Current Visit: No Status: Acute Code(s): L97.212 - NON-PRESSURE CHRONIC ULCER OF RIGHT CALF W FAT LAYER EXPOSED SNOMED Code(s): 17845285172576212 Plan: 1patient with right lower extremity venous stasis ulcer and mild cellulitis wound base looks clean no significant slough tissue we will recommend local wound care with the dry Aquacel silver dressing and Andrea wrap for compression to keep the swelling down dressing should be changed daily as per discussion with the nursing staff 2Patient to continue with current treatment of cefazolin 2 g every 8 hours for possible cellulitis of the right lower extremity and monitor clinical course closely Time with Patient: Less than 30
--- NOTE | 2023-01-24 07:55 | P.PN ---
Subjective Progress Note Date: 01/23/23 Principal diagnosis: Right leg cellulitis Patient is a 76-year-old male with a past medical history significant diabetes mellitus hypertension hyperlipidemia obstructive sleep apnea atrial fibrillation with recent admission to the hospital and has been treated for right lower extremity ulceration and cellulitis , presenting back to the hospital with visual hallucination and noticed to having the ulceration to the right lower extremity concern for cellulitis. On today's evaluation that is 01/23/2023, the patient did have a low-grade fever 100.3 this morning, the patient is afebrile since then , patient is breathing more comfortably and is currently off the BiPAP patient denies having any chest pain no worsening cough no nausea no vomiting no abdominal pain or any worsening pain to the right lower extremity Objective - Vital Signs Vital signs: Vital Signs Temp 98.3 F 01/23/23 12:30 Pulse 61 01/23/23 13:00 Resp 30 H 01/23/23 13:00 BP 115/58 01/23/23 13:00 Pulse Ox 96 01/23/23 13:00 FiO2 30 01/23/23 08:30 Intake & Output 01/22/23 01/23/23 01/23/23 18:59 06:59 18:59 Intake Total 199.240 200 754.463 Output Total 2400 925 145 Balance -2200.760 -725 609.463 Weight 150.1 kg 150.1 kg Intake: IV 100 0.9 kvo 50 ceFAZolin 2 gm In Sodium 50 Chloride 0.9% 50 ml @ 100 mls/hr IVPB Q8HR [facility] Rx# :[id number] Intake, IV Titration 199.240 200 46.463 Amount Dexmedetomidine/0.9% NaCl 99.240 46.463 (Pmx) 400 mcg In Empty Bag 1 bag @ 0.2 MCG/KG/HR 7.462 mls/hr IV .[id number] [facility] Rx#:[id number] Potassium Chloride 10 meq 200 In Water For Injection 1 100ml.bag @ 100 mls/hr IVPB Q1H [facility] Rx#: [id number] Sodium Chloride 0.9% 1, 0 000 ml @ 75 mls/hr IV . [id number] [facility] Rx#:[id number] ceFAZolin 2 gm In Sodium 100 Chloride 0.9% 50 ml @ 100 mls/hr IVPB Q8HR [facility] Rx# :[id number] Oral 0 608 Output: Urine 2400 925 145 Other: Voiding Method Indwelling Catheter Indwelling Catheter Indwelling Catheter # Bowel Movements 1 - Exam GENERAL DESCRIPTION: An elderly male lying in bed in no distress RESPIRATORY SYSTEM: Unlabored breathing , decreased breath sounds at bases HEART: S1 S2 regular rate and rhythm , ABDOMEN: Soft , no tenderness EXTREMITIES: Right leg is currently dressed with minimal drainage on the dress ing - Labs CBC & Chem 7: 01/23/23 03:51 01/24/23 03:39 Labs: Abnormal Lab Results - Last 24 Hours (Table) 01/22/23 01/23/23 01/23/23 Range/Units 18:20 03:51 03:51 RBC 3.81 L (4.30-5.90) m/uL Hgb 11.6 L (13.0-17.5) gm/dL Hct 36.7 L (39.0-53.0) % BUN 30 H (9-20) mg/dL Glucose 65 L (74-99) mg/dL POC Glucose (mg/dL) 66 L (70-110) mg/dL Calcium 8.0 L (8.4-10.2) mg/dL 01/23/23 Range/Units 11:41 RBC (4.30-5.90) m/uL Hgb (13.0-17.5) gm/dL Hct (39.0-53.0) % BUN (9-20) mg/dL Glucose (74-99) mg/dL POC Glucose (mg/dL) 199 H (70-110) mg/dL Calcium (8.4-10.2) mg/dL Assessment and Plan (1) Cellulitis of right leg Current Visit: Yes Status: Acute Code(s): L03.115 - CELLULITIS OF RIGHT LOWER LIMB SNOMED Code(s): 062960037 (2) 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 exposed Current Visit: No Status: Acute Code(s): L97.212 - NON-PRESSURE CHRONIC ULCER OF RIGHT CALF W FAT LAYER EXPOSED SNOMED Code(s): 10834952692066168 Plan: 1patient with right lower extremity venous stasis ulcer and mild cellulitis wound base looks clean no significant slough tissue we will recommend local wound care with the dry Aquacel silver dressing and Andrea wrap for compression to keep the swelling down dressing should be changed daily as per discussion with the nursing staff 2Patient did have a low-grade fever however the patient white count is normal we will continue with the cefazolin and reevaluate the wound at the time of Dressing changes Time with Patient: Less than 30
[2023-01-24] MEDS: IPRATROPIUM-ALBUTEROL 3 ML NEB INHALATION SCH ×4 (08:08→19:58)
[2023-01-24] MEDS: carvediloL 12.5 MG TAB PO SCH ×2 (08:50→18:18)
[2023-01-24] MEDS: INSULIN ASPART (NovoLOG) 100 UNIT/ML VIAL SQ SCH ×4 (09:30→20:37)
[2023-01-24] MEDS: APIXABAN 5 MG TAB PO SCH ×2 (10:11→20:35)
[2023-01-24] MEDS: TAMSULOSIN 0.4 MG CAP.ER.24H PO SCH (10:11)
[2023-01-24] MEDS: CHOLECALCIFEROL 25 MCG (1000 IU) TABLET PO SCH (10:12)
[2023-01-24] MEDS: ATORVASTATIN 10 MG TAB PO SCH (10:12)
[2023-01-24] MEDS: FLUoxetine HCL 20 MG CAP PO SCH (10:12)
[2023-01-24] MEDS: FUROSEMIDE 10 MG/ML 4 ML VIAL IV SCH ×2 (10:12→23:33)
[2023-01-24] MEDS: CYANOCOBALAMIN 500 MCG TAB PO SCH (10:12)
[2023-01-24] MEDS: traMADol 50 MG TAB PO PRN ×2 (11:21→20:35)
[2023-01-24 11:53] LABS: Glucose,Whole Blood 173 mg/dL (70-110)
--- NOTE | 2023-01-24 13:02 | CA ---
Transthoracic Echo Report Name: Lex Maldonado Age: 68 Gender: M : 1955 Exam Date: 01/23/2023 11:59 Exam Location: [place] Echo Ht (in): 73 Wt (lb): 330 Ordering Physician: Laura Peguero Attending/Referring Phys: Dispute Resolution Analyst Neto Riddle Procedure CPT: Indications: chf Cardiac Hx: Technical Quality: Very technically difficult study Contrast 1: Lumason Total Dose (mL): 5 Contrast 2: Agitated Saline Total Dose (mL): 10 MEASUREMENTS (Male / Female) Normal Values 2D ECHO LV Diastolic Diameter PLAX 4.9 cm 4.2 - 5.9 / 3.9 - 5.3 cm LV Systolic Diameter PLAX 3.3 cm IVS Diastolic Thickness 1.4 cm 0.6 - 1.0 / 0.6 - 0.9 cm LVPW Diastolic Thickness 1.5 cm 0.6 - 1.0 / 0.6 - 0.9 cm LV Relative Wall Thickness 0.6 RV Internal Dim ED PLAX 3.5 cm LVOT Diameter 2.0 cm Aortic Root Diameter 2.7 cm LA Systolic Diameter LX 3.4 cm 3.0 - 4.0 / 2.7 - 3.8 cm LV Diastolic Volume MOD BP 102.9 cm??? 67 - 155 / 56 - 104 cm??? LV Systolic Volume MOD BP 44.5 cm??? 22 - 58 / 19 - 49 cm??? LV Ejection Fraction MOD BP 56.7 % >= 55 % LV Diastolic Volume MOD 4C 120.1 cm??? LV Systolic Volume MOD 4C 44.9 cm??? LV Ejection Fraction MOD 4C 62.6 % LV Diastolic Length 4C 8.0 cm LV Systolic Length 4C 6.3 cm LV Diastolic Volume MOD 2C 87.2 cm??? LV Systolic Volume MOD 2C 37.7 cm??? LV Ejection Fraction MOD 2C 56.7 % LV Diastolic Length 2C 8.1 cm LV Systolic Length 2C 7.4 cm LA Volume 69.5 cm??? 18 - 58 / 22 - 52 cm??? DOPPLER AV Peak Velocity 430.0 cm/s AV Peak Gradient 74.0 mmHg AV Mean Velocity 308.0 cm/s AV Mean Gradient 44.0 mmHg AV Velocity Time Integral 105.1 cm LVOT Peak Velocity 153.8 cm/s LVOT Peak Gradient 9.5 mmHg LVOT Velocity Time Integral 42.1 cm LVOT Stroke Volume 135.2 cm??? LVOT Stroke Volume Index 50.8 ml/m??? AV Area Cont Eq vti 1.3 cm??? AV Area Cont Eq pk 1.1 cm??? MV Peak Velocity 172.8 cm/s MV Peak Gradient 11.9 mmHg MV Mean Velocity 77.7 cm/s MV Mean Gradient 3.1 mmHg MV Velocity Time Integral 69.6 cm MR Peak Velocity 460.8 cm/s MR Peak Gradient 84.9 mmHg Mitral E Point Velocity 127.0 cm/s Mitral A Point Velocity 114.7 cm/s Mitral E to A Ratio 1.1 MV Deceleration Time 367.4 ms TR Peak Velocity 254.5 cm/s TR Peak Gradient 25.9 mmHg Right Ventricular Systolic Press 33.3 mmHg FINDINGS Left Ventricle Left ventricular ejection fraction is estimated at 55-60 %. Moderately increased septal wall thickness. Normal LV size. Right Ventricle Mild to moderate RV dilatation. RVSP= 49mmhg. Right Atrium Normal right atrial size. Left Atrium Moderately increased left atrial volume. Mildly increased left atrial area. Mitral Valve Mitral valve thickened. Mild MR. Aortic Valve Aortic valve not well visualized. AV Peak gradient= 74.0mmhg. AV Mean gradient= 44.0mmhg. Mild AI noted on color flow doppler. Tricuspid Valve Grossly normal TV. Mild to Moderate TR. RVSP= 49mmhg. Pulmonic Valve Pulmonic valve not well visualized. No pulmonic regurgitation. Pericardium Normal pericardium. Aorta Normal size aortic root and proximal ascending aorta. CONCLUSIONS Technically difficult and limited. Normal LV systolic function mild concentric LVH moderate to severe aortic stenosis with mild aortic regurgitation aortic valve is not well-seen. Moderate pulmonary hypertension no pericardial effusion Previewed by: Dr. Yoselin Houston MD (Electronically Signed) Final Date: 24 January 2023 13:01
--- NOTE | 2023-01-24 14:04 | P.PN ---
Subjective Progress Note Date: 01/24/23 Principal diagnosis: Acute on chronic hypercapnic respiratory failure, with right lower extremity cellulitis, possible sepsis. This is a 68-year-old white male with history of multiple medical problems, patient is known to have chronic atrial fibrillation, type 2 diabetes, obesity, patient was seen by us back on 12/13/2022, at that time the patient had acute hypercapnia with morbid obesity and obstructive sleep apnea, patient was placed on BiPAP at the time with IPAP of 12 EPAP of 6, and cut down his FiO2 to 30%. His admission back then was mostly related to cellulitis of lower extremities with acute kidney injury, hypotension, treated back then with antibiotics, he was anticoagulated with eliquis, and he was seen by many consultants including nephrology for his renal failure. This time on 01/14/2023, patient apparently had a very similar presentation, he was sent from the detention mostly because of altered mental status, confusion, hallucinations, patient was claiming that he was seeing rabbits in his room. Admitted with acute delirium, and he was seen by psychiatry on consultation, nonetheless the patient continues to be restless agitated, and he was refusing to place his BiPAP on his face. I was notified about this patient, recommended immediate transfer to the ICU, placed on Precedex. And one hour later ABG was done while the patient was on BiPAP, showed a pO2 of 118 pCO2 of 45 and pH of 7.38. His pCO2 on admission was in the 60s. Patient called down nicely, and he seems to be responding well to Precedex and tolerating BiPAP quite nicely. He is on IPAP 14 EPAP of 6, and FiO2 of 30% could not get much history out of the patient as he seems to be agitated and restless upon arrival to the ICU Reevaluated today on , patient remains in the ICU, remains on BiPAP 14/6/30%, remains on Precedex at 0.12 mcg/kg/h, weaning to Precedex and we will likely discontinue this morning. Patient remains calm, does not seem to be in any distress, his mental status is improving, seems to be more oriented and more appropriate today, although he is a bit slow. Labs today showed the incentive 8 hemoglobin 11., electrolytes and renal profile are normal, chest x-ray showed no evidence of active disease. Reevaluated today on , patient remains in the ICU, doing fairly well, last minute he was on BiPAP at 14/6/30%, he is off Precedex, patient is alert oriented, not confused anymore, and he is not in any distress. He seems to be very appropriate, continues to have significant swelling in the lower extremities, yesterday he received diuretics, his creatinine is up to 1.40 today, hence we will hold on diuresis for now. Chest x-ray done yesterday showed no evidence of acute cardiopulmonary process. Except minimal prominence of the pulmonary vasculature patient is still receiving antibiotics for his bilateral lower extremities wounds, I was able to examine the lower extremities today, and there seems to be no evidence of necrosis, there is mostly sloughing of the skin and erythema. Objective - Vital Signs Vital signs: Vital Signs Temp 98.1 F 01/24/23 12:00 Pulse 58 L 01/24/23 13:00 Resp 20 01/24/23 13:00 BP 113/72 01/24/23 13:00 Pulse Ox 94 L 01/24/23 13:00 FiO2 30 01/24/23 04:16 Intake & Output 01/23/23 01/24/23 01/24/23 18:59 06:59 18:59 Intake Total 1510.463 300 400 Output Total 255 270 382 Balance 1255.463 30 18 Weight 150.1 kg Intake: IV 130 50 0.9 kvo 80 ceFAZolin 2 gm In Sodium 50 50 Chloride 0.9% 50 ml @ 100 mls/hr IVPB Q8HR [facility] Rx# :[id number] Intake, IV Titration 46.463 Amount Dexmedetomidine/0.9% NaCl 46.463 (Pmx) 400 mcg In Empty Bag 1 bag @ 0.2 MCG/KG/HR 7.462 mls/hr IV .[id number] [facility] Rx#:[id number] Oral 1334 250 400 Output: Urine 255 270 382 Other: Voiding Method Indwelling Catheter Indwelling Catheter - Exam GENERAL: Revealed a 68-year-old white male morbidly obese, in no distress on nasal cannula Head: Atraumatic, normocephalic. HEENT: Short obese neck. No neck masses. Pupils are round and equally reacting to light. EOMI. No scleral icterus. No conjunctival pallor. CARDIOVASCULAR: Distant S1 and S2, no S3 gallop, no murmur. PULMONARY: Symmetrical chest expansion diminished breath sounds at the bases no rhonchi no wheezes ABDOMEN: Obese, Soft, nontender, nondistended, normoactive bowel sounds. No palpable organomegaly. MUSCULOSKELETAL: No evidence of deformities. No limitations in range of motion. EXTREMITIES: Chronic venous stasis changes and cellulitis noted in both lower extremities NEUROLOGICAL: Awake, alert oriented 3, no focal deficit except the patient is a bit slow remains on Precedex which is being titrated SKIN: Evidence of sloughing of the skin with erythema of lower extremities and minimal oozing of blood noted after the dressing was removed no evidence of necrotic tissue and no need for debridement - Labs CBC & Chem 7: 01/23/23 03:51 01/24/23 03:39 Labs: Abnormal Lab Results - Last 24 Hours (Table) 01/23/23 01/23/23 01/24/23 Range/Units 16:24 21:14 03:39 Sodium 134 L (137-145) mmol/L BUN 42 H (9-20) mg/dL Creatinine 1.40 H (0.66-1.25) mg/dL Glucose 172 H (74-99) mg/dL POC Glucose (mg/dL) 267 H 243 H (70-110) mg/dL Calcium 7.5 L (8.4-10.2) mg/dL 01/24/23 Range/Units 11:52 Sodium (137-145) mmol/L BUN (9-20) mg/dL Creatinine (0.66-1.25) mg/dL Glucose (74-99) mg/dL POC Glucose (mg/dL) 173 H (70-110) mg/dL Calcium (8.4-10.2) mg/dL Assessment and Plan Assessment: Impression: Acute on chronic hypercapnic respiratory failure Acute metabolic encephalopathy secondary to hypercapnia Chronic lower extremity cellulitis/right leg cellulitis, possible sepsis Chronic atrial fibrillation Type 2 diabetes with possible diabetic nephropathy Benign essential hypertension dyslipidemia Chronic ulcer of right calf Morbid obesity BMI of over 40 Recommendation: Off Precedex Continue nasal cannula, use BiPAP at night Continue to monitor in ICU for the next 24 hours Continue antibiotics as per infectious disease on the case. Continue cardiac medications and eliquis. Continue Zyprexa as ordered by psychiatry Continue Prozac. Possibly transfer out of the ICU in the next 24 hour We will continue to follow. Time with Patient: Less than 30
--- NOTE | 2023-01-24 16:24 | P.PN ---
Subjective Progress Note Date: 01/24/23 patient is 68-year-old gentleman with past medical history significant for atrial fibrillation, diabetes mellitus type 2, hyperlipidemia, hypertension, obstructive sleep apnea, basal cell carcinoma, depression Who presented to The hospital because of hallucinations. Patient was recently in the hospital because of encephalopathy and right lower extremity cellulitis, was discharged on doxycycline for 10 days. Patient was discharged to [facility], he has been intermittently confused over there. Patient has been complaining of hallucinations mostly visual, stating that he was seeing rabbits in his room. No complaint of fever or chills. No complaints of nausea or vomiting. Redness of right lower extremity has improved. Because of this increasing episodes of confusion, patient was brought to the ER Initial lab work in the ER showed WBC 7.1, hemoglobin 11.9, sodium 137, pot assium 4.3, BUN 50, creatinine 1.3. CT brain showed atrophy, minimal mucosal thickening within the anterior left right ethmoid air cells, no evidence of acute hemorrhage or stroke Chest x-ray negative for any acute cardiac process Patient was admitted to medicine service 01/21. Patient seen and examined. Confusion has improved. Still complaining of weakness 01/22/2023 Patient is seen and evaluated in follow-up this morning and has been brought to the ICU for increased confusion patient being obtunded and patient is currently on BiPAP with multiple medical consultations following. Patient is not tolerating oral intake and now waking up enough and is currently nothing by mouth. Patient is maintained on Precedex drip as nursing staff reports he was extremely restless while continuing to be obtunded. Continued on IV cefazolin with infectious disease following for right lower extremity cellulitis. Pulmonary is now following and patient is maintained on BiPAP with an FiO2 of 30% and will continue. Titrate as tolerated. Recommend follow-up labs 01/23/2023 Patient is seen and evaluated and continues to be in the ICU on BiPAP overnight although transition to 3 L nasal cannula much more awake and alert today. Patient able to tolerate some oral intake and take medications. Patient is lethargic and report still feeling weak. PT/OT therapy consulted. Patient's blood sugars were lower due to nothing by mouth status yesterday although is tolerating diet will resume long-acting and continue sliding scale for now. Patient is alert and oriented 2-3 not reporting any signs of hallucinations. Patient medications adjusted and patient has been weaned off Precedex. Patient continues on local wound care and IV cefazolin with infectious disease following for right lower extremity cellulitis. Patient will continue on oral Keflex on discharge. Family is looking into other possible ECF locations and he was most recently currently staying at [facility]. Patient's family also concerned he has been having steady decline lately and becomes more confused at night. Patient being monitored in the ICU overnight with possible transfer out. Will discuss with case management and other consultations about possible discharge planning. 01/24/2023 Patient is seen and evaluated in follow-up in the ICU maintained on 3 L via nasal cannula and continues to use BiPAP at night. Patient was instructed to use a CPAP machine in the outpatient setting although reports has not used in years and couldn't tolerate the mask. Per nursing staff patient tolerated BiPAP and is currently maintained on 3 L. Patient with some overload and pulmonary hypertension noted on echo, arbitrator started patient on IV Lasix although blood pressures were marginal and urine output was minimal and so a.m. dose of Lasix was held. Kidney functions also elevated this morning. Patient denies worsening shortness of breath. Patient denies chest pain or palpitations. Patient reports not much of an appetite but is eating. Blood sugars have been elevated and will adjust medications accordingly. Patient was able to tolerate oral pills as well again today. Patient with significant weakness would like to go back to where he was at [facility] and social work is following. Per social work family was attempting to look into other facilities although patient does not want to. Currently working on insurance authorization. Pulmonary arbitrator recommends ICU monitoring overnight with possible transfer to [facility]. tomorrow and no plans for discharge as of yet. Patient is also continued on IV cefazolin with infectious disease following for right lower extremity cellulitis. Review of systems: Constitutional: reports of fatigue, no fever, or chills, reports some generalized back pain and body aches Cardiovascular: No reports of chest pain or palpitations Respiratory: No reports of worsening shortness of breath and reports feels somewhat improved GI: No reports of nausea, vomiting, or diarrhea, reports not much of an appetite although is eating. Patient reports the passing gas with no bowel movement in the last few days although reports was having extremely loose stool prior to ad mission : No reports of dysuria or retention Neurovascular: reports of generalized weakness All medications have been reviewed PHYSICAL EXAMINATION: GENERAL: The patient is alert and oriented x2-3, appears fatigued and somewhat slow although much more alert and awake today. Well developed, well nourished. Morbidly obese. Maintained on 3 L via nasal cannula and was on BiPAP at night HEENT: Pupils are round and equally reacting to light. EOMI. No scleral icterus. No conjunctival pallor. Normocephalic, atraumatic. No pharyngeal erythema. No thyromegaly. CARDIOVASCULAR: S1 and S2 present. No murmurs, rubs, or gallops. PULMONARY: Diminished breath sounds bilaterally with some coarse rhonchi noted ABDOMEN: Soft, obese, nontender, nondistended, normoactive bowel sounds. No palpable organomegaly. MUSCULOSKELETAL: No joint swelling or deformity. EXTREMITIES: Right lower extremity wound seen, erythema improving, some sloughing of skin noted, dressing noted dry and intact NEUROLOGICAL: Gross neurological examination did not reveal any focal deficits. Diffusely weak SKIN: No rashes. Assessment: Acute delirium with hallucinations, possibly medication effect, toxic/metabolic encephalopathy, improving Acute on chronic hypoxic respiratory failure secondary to sleep apnea, now requiring BiPAP, currently on 3 L via nasal cannula. Using BiPAP at night right lower extremity cellulitis Atrial fibrillation history Insulin-dependent diabetes mellitus, uncontrolled with hypoglycemia secondary to nothing by mouth status, trending up and will resume sliding scale and long- acting at night Hypertension Hyperlipidemia Morbid obesity with BMI of 43.4 History of sleep apnea and does not use CPAP as he cannot tolerate the mask GI prophylaxis DVT prophylaxis Full code Plan: Recommend to monitor closely in the ICU with intermittent use on BiPAP with pulmonary following and currently maintained on 3 L via nasal cannula. Pulmonary arbitrator recommends monitoring closely overnight in ICU with possible transfer out of the ICU in 24 hours Patient did have a decrease in urine output and has not been eating and drinking much, encouraged oral intake and patient continues with indwelling Meeks catheter for intake and output monitoring. Patient was started on IV Lasix although worsening kidney functions which are 1.4 today of creatinine and recommend holding Lasix. Will consult nephrology and appreciate input and recommendations. Patient is chronically maintained on Flomax and reports he's had difficulty with urinary retention in the past. Continue with medications as mentioned by psychiatry. Limit the use of narcotics and will add low-dose as needed Ultram and discuss with nursing staff about using Tylenol for his joint pain Patient has been weaned off Precedex and able to tolerate oral intake, encouraged oral intake and medications resumed Per nursing staff, family reports patient has been noncompliant with oxygen use and did used to use a CPAP although did not tolerate Recommend monitoring blood sugars closely as patient now eating again and will continue sliding scale and have resumed long-acting at night Patient currently maintained on IV cefazolin for right lower extremity cellulitis with infectious disease following. We will transition to oral Keflex on discharge. Recommend continue local wound care. Patient will need ECF and was at [facility] with social work following and family discussing other possible options. patient would like to return to [facility] on discharge. Patient will require insurance authorization which has been submitted. The impression and plan of care has been dictated by Laura Peguero, Nurse Practitioner as directed. MD Le I have performed a history and examination and MDM of this patient, discussed the same with the dictator, and agree with the dictator's assessment and plan as written ,documented as a scribe. Based on total visit time, I have performed more than 50% of the visit. Objective - Vital Signs Vital signs: Vital Signs Temp 98.1 F 01/24/23 12:00 Pulse 56 L 01/24/23 14:00 Resp 20 01/24/23 14:00 BP 156/62 01/24/23 14:00 Pulse Ox 94 L 01/24/23 14:00 FiO2 30 01/24/23 04:16 Intake & Output 01/23/23 01/24/23 01/24/23 18:59 06:59 18:59 Intake Total 1510.463 300 400 Output Total 255 270 412 Balance 1255.463 30 -12 Weight 150.1 kg Intake: IV 130 50 0.9 kvo 80 ceFAZolin 2 gm In Sodium 50 50 Chloride 0.9% 50 ml @ 100 mls/hr IVPB Q8HR [facility] Rx# :[id number] Intake, IV Titration 46.463 Amount Dexmedetomidine/0.9% NaCl 46.463 (Pmx) 400 mcg In Empty Bag 1 bag @ 0.2 MCG/KG/HR 7.462 mls/hr IV .[id number] [facility] Rx#:[id number] Oral 1334 250 400 Output: Urine 255 270 412 Other: Voiding Method Indwelling Catheter Indwelling Catheter - Labs CBC & Chem 7: 01/23/23 03:51 01/24/23 03:39 Labs: Abnormal Lab Results - Last 24 Hours (Table) 01/23/23 01/23/23 01/24/23 Range/Units 16:24 21:14 03:39 Sodium 134 L (137-145) mmol/L BUN 42 H (9-20) mg/dL Creatinine 1.40 H (0.66-1.25) mg/dL Glucose 172 H (74-99) mg/dL POC Glucose (mg/dL) 267 H 243 H (70-110) mg/dL Calcium 7.5 L (8.4-10.2) mg/dL 01/24/23 Range/Units 11:52 Sodium (137-145) mmol/L BUN (9-20) mg/dL Creatinine (0.66-1.25) mg/dL Glucose (74-99) mg/dL POC Glucose (mg/dL) 173 H (70-110) mg/dL Calcium (8.4-10.2) mg/dL
[2023-01-24] MEDS: ACETAMINOPHEN TAB 500 MG TAB PO PRN (16:37)
[2023-01-24 17:52] LABS: Glucose,Whole Blood 155 mg/dL (70-110)
[2023-01-24 20:16] LABS: Glucose,Whole Blood 241 mg/dL (70-110)
[2023-01-24] MEDS: OLANZapine 2.5 MG TAB PO SCH (20:35)
[2023-01-24] MEDS: INSULIN DETEMIR (LEVEMIR) 100 UNIT/ML SYR SQ SCH (20:37)
[2023-01-24] MEDS: FERROUS SULFATE 325 MG TAB PO SCH (20:37)
--- NOTE | 2023-01-24 22:09 | P.PN ---
Subjective Progress Note Date: 01/24/23 Principal diagnosis: Right leg cellulitis Patient is a 76-year-old male with a past medical history significant diabetes mellitus hypertension hyperlipidemia obstructive sleep apnea atrial fibrillation with recent admission to the hospital and has been treated for right lower extremity ulceration and cellulitis , presenting back to the hospital with visual hallucination and noticed to having the ulceration to the right lower extremity concern for cellulitis. On today's evaluation that is 01/24/2023, the patient remains to be afebrile, the patient is currently breathing comfortable nasal cannula oxygen denies having any chest pain occasional cough no nausea vomiting abdominal pain no diarrhea denies any worsening pain to the right lower extremity Objective - Vital Signs Vital signs: Vital Signs Temp 98.4 F 01/24/23 20:00 Pulse 60 01/24/23 21:00 Resp 26 H 01/24/23 21:00 BP 128/91 01/24/23 21:00 Pulse Ox 96 01/24/23 21:00 FiO2 30 01/24/23 04:16 Intake & Output 01/24/23 01/24/23 01/25/23 06:59 18:59 06:59 Intake Total 300 650 300 Output Total 270 550 85 Balance 30 100 215 Intake: IV 50 ceFAZolin 2 gm In Sodium 50 Chloride 0.9% 50 ml @ 100 mls/hr IVPB Q8HR [facility] Rx# :[id number] Intake, IV Titration 100 Amount ceFAZolin 2 gm In Sodium 100 Chloride 0.9% 50 ml @ 100 mls/hr IVPB Q8HR [facility] Rx# :[id number] Oral 250 550 300 Output: Urine 270 550 85 Other: Voiding Method Indwelling Catheter Indwelling Catheter Indwelling Catheter - Exam GENERAL DESCRIPTION: An elderly male lying in bed in no distress RESPIRATORY SYSTEM: Unlabored breathing , decreased breath sounds at bases HEART: S1 S2 regular rate and rhythm , ABDOMEN: Soft , no tenderness EXTREMITIES: Right lower extremity with multiple superficial ulceration no slough tissue surrounding redness has improved - Labs CBC & Chem 7: 01/23/23 03:51 01/24/23 03:39 Labs: Abnormal Lab Results - Last 24 Hours (Table) 01/24/23 01/24/23 01/24/23 Range/Units 03:39 11:52 17:51 Sodium 134 L (137-145) mmol/L BUN 42 H (9-20) mg/dL Creatinine 1.40 H (0.66-1.25) mg/dL Glucose 172 H (74-99) mg/dL POC Glucose (mg/dL) 173 H 155 H (70-110) mg/dL Calcium 7.5 L (8.4-10.2) mg/dL 01/24/23 Range/Units 20:14 Sodium (137-145) mmol/L BUN (9-20) mg/dL Creatinine (0.66-1.25) mg/dL Glucose (74-99) mg/dL POC Glucose (mg/dL) 241 H (70-110) mg/dL Calcium (8.4-10.2) mg/dL Assessment and Plan (1) Cellulitis of right leg Current Visit: Yes Status: Acute Code(s): L03.115 - CELLULITIS OF RIGHT LOWER LIMB SNOMED Code(s): 480337631 (2) 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 exposed Current Visit: No Status: Acute Code(s): L97.212 - NON-PRESSURE CHRONIC ULCER OF RIGHT CALF W FAT LAYER EXPOSED SNOMED Code(s): 71200402874667014 Plan: 1patient with right lower extremity venous stasis ulcer and mild cellulitis wound base looks clean no significant slough tissue we will recommend local wound care with the dry Aquacel silver dressing and Andrea wrap for compression to keep the swelling down dressing should be changed daily as per discussion with the nursing staff 2Patient is afebrile white count has been normal right lower extremity overall swelling redness has improved local wound care with Aquacel silver dressing and Andrea wrap has been discussed again with the patient RN, continue with the cefazolin and monitor clinical course closely Time with Patient: Less than 30
[2023-01-25 04:15] LABS: Basophils % (A) 0 %; Eosinophils # (A) 0.3 k/uL (0-0.7); Eosinophils % (A) 5 %; HCT 33.5 % (39.0-53.0); HGB 10.6 gm/dL (13.0-17.5); Hypochromasia Moderate; Lymphocytes # (A) 1.1 k/uL (1.0-4.8); Lymphocytes % (A) 16 %; MCH 30.5 pg (25.0-35.0); MCHC 31.7 g/dL (31.0-37.0); MCV 96.3 fL (80.0-100.0); Mean Platelet Volume 7.6; Monocytes # (A) 0.8 k/uL (0-1.0); Monocytes % (A) 12 %; Neutrophils # (A) 4.5 k/uL (1.3-7.7); Neutrophils % (A) 65 %; Platelet Count 220 k/uL (150-450); RBC 3.48 m/uL (4.30-5.90); RDW 13.9 % (11.5-15.5)
[2023-01-25 04:42] LABS: African American GFR (CKD) 75 (>60 ml/min/1.73 sqM); Anion Gap 6 mmol/L; Blood Urea Nitrogen 48 mg/dL (9-20); Calcium 7.6 mg/dL (8.4-10.2); Carbon Dioxide 27 mmol/L (22-30); Chloride 103 mmol/L (98-107); Glucose 159 mg/dL (74-99); Magnesium 2.2 mg/dL (1.6-2.3); Non-African American GFR(CKD) 65 (>60 ml/min/1.73 sqM); Potassium 4.3 mmol/L (3.5-5.1); Sodium 136 mmol/L (137-145)
[2023-01-25 06:47] LABS: Glucose,Whole Blood 133 mg/dL (70-110)
[2023-01-25] MEDS: INSULIN ASPART (NovoLOG) 100 UNIT/ML VIAL SQ SCH ×4 (06:48→20:54)
[2023-01-25] MEDS: carvediloL 12.5 MG TAB PO SCH ×2 (06:50→16:47)
[2023-01-25] MEDS: IPRATROPIUM-ALBUTEROL 3 ML NEB INHALATION SCH ×4 (08:29→19:30)
[2023-01-25] MEDS ORDERED: DEXAMETHASONE SOD PHOSPHATE 10 MG/ML 1 ML VIAL IVP SCH (09:00)
[2023-01-25] MEDS: TAMSULOSIN 0.4 MG CAP.ER.24H PO SCH (09:10)
[2023-01-25] MEDS: CYANOCOBALAMIN 500 MCG TAB PO SCH (09:10)
[2023-01-25] MEDS: CHOLECALCIFEROL 25 MCG (1000 IU) TABLET PO SCH (09:10)
[2023-01-25] MEDS: ATORVASTATIN 10 MG TAB PO SCH (09:10)
[2023-01-25] MEDS: FLUoxetine HCL 20 MG CAP PO SCH (09:10)
[2023-01-25] MEDS: APIXABAN 5 MG TAB PO SCH ×2 (09:10→20:55)
[2023-01-25] MEDS: FUROSEMIDE 10 MG/ML 4 ML VIAL IV SCH ×2 (09:11→20:55)
--- NOTE | 2023-01-25 10:07 | P.PN ---
Subjective Progress Note Date: 01/25/23 Principal diagnosis: Acute on chronic hypercapnic respiratory failure, with right lower extremity cellulitis, possible sepsis. This is a 68-year-old white male with history of multiple medical problems, patient is known to have chronic atrial fibrillation, type 2 diabetes, obesity, patient was seen by us back on 12/13/2022, at that time the patient had acute hypercapnia with morbid obesity and obstructive sleep apnea, patient was placed on BiPAP at the time with IPAP of 12 EPAP of 6, and cut down his FiO2 to 30%. His admission back then was mostly related to cellulitis of lower extremities with acute kidney injury, hypotension, treated back then with antibiotics, he was anticoagulated with eliquis, and he was seen by many consultants including nephrology for his renal failure. This time on 01/14/2023, patient apparently had a very similar presentation, he was sent from the [place] [facility] mostly because of altered mental status, confusion, hallucinations, patient was claiming that he was seeing rabbits in his room. Admitted with acute delirium, and he was seen by psychiatry on consultation, nonetheless the patient continues to be restless agitated, and he was refusing to place his BiPAP on his face. I was notified about this patient, recommended immediate transfer to the ICU, placed on Precedex. And one hour later ABG was done while the patient was on BiPAP, showed a pO2 of 118 pCO2 of 45 and pH of 7.38. His pCO2 on admission was in the 60s. Patient called down nicely, and he seems to be responding well to Precedex and tolerating BiPAP quite nicely. He is on IPAP 14 EPAP of 6, and FiO2 of 30% could not get much history out of the patient as he seems to be agitated and restless upon arrival to the ICU Reevaluated today on , patient remains in the ICU, remains on BiPAP 14/6/30%, remains on Precedex at 0.12 mcg/kg/h, weaning to Precedex and we will likely discontinue this morning. Patient remains calm, does not seem to be in any distress, his mental status is improving, seems to be more oriented and more appropriate today, although he is a bit slow. Labs today showed the incentive 8 hemoglobin 11., electrolytes and renal profile are normal, chest x-ray showed no evidence of active disease. Reevaluated today on 01/24/2023, patient remains in the ICU, doing fairly well, last minute he was on BiPAP at 14/6/30%, he is off Precedex, patient is alert oriented, not confused anymore, and he is not in any distress. He seems to be very appropriate, continues to have significant swelling in the lower extremities, yesterday he received diuretics, his creatinine is up to 1.40 today, hence we will hold on diuresis for now. Chest x-ray done yesterday showed no evidence of acute cardiopulmonary process. Except minimal prominence of the pulmonary vasculature patient is still receiving antibiotics for his bilateral lower extremities wounds, I was able to examine the lower extremities today, and there seems to be no evidence of necrosis, there is mostly sloughing of the skin and erythema. Patient was reevaluated today on 01/25/2023, remains in the ICU, however the patient is doing much better today compared to the last few days. He is on room air, however he is using his BiPAP at night. Remains on Lasix at 40 mg IV push every 12 hours remains on cefazolin. Today the patient feels extremely sore, and feels stiff. Hence I'm recommending a dose of Decadron. Patient continues to have urine output which is excellent, does not seem to be in any distress for of his pulmonary status is concerned, hence I plan to transfer the patient out of the ICU to regular medical floor. WBC count is 7 hemoglobin 10.6 electrolytes are normal BUN is 48 creatinine 1.15, significantly better compared to creatinine yesterday of 1.40 Objective - Vital Signs Vital signs: Vital Signs Temp 98.7 F 01/25/23 08:00 Pulse 55 L 01/25/23 09:00 Resp 21 01/25/23 09:00 BP 129/59 01/25/23 09:00 Pulse Ox 92 L 01/25/23 09:00 FiO2 30 01/25/23 04:21 Intake & Output 01/24/23 01/25/23 01/25/23 18:59 06:59 18:59 Intake Total 650 420 70 Output Total 550 1000 145 Balance 100 -580 -75 Weight 154.1 kg Intake: IV 50 60 0.9 kvo 10 ceFAZolin 2 gm In Sodium 50 50 Chloride 0.9% 50 ml @ 100 mls/hr IVPB Q8HR [facility] Rx# :[id number] Intake, IV Titration 100 Amount ceFAZolin 2 gm In Sodium 100 Chloride 0.9% 50 ml @ 100 mls/hr IVPB Q8HR [facility] Rx# :[id number] Oral 550 300 Lipid 70 10 0.9 kvo 70 10 Output: Urine 550 1000 145 Other: Voiding Method Indwelling Catheter Indwelling Catheter - Exam GENERAL: Revealed a 68-year-old white male morbidly obese, in no distress on room air. Head: Atraumatic, normocephalic. HEENT: Short obese neck. No neck masses. Pupils are round and equally reacting to light. EOMI. No scleral icterus. No conjunctival pallor. CARDIOVASCULAR: Distant S1 and S2, no S3 gallop, no murmur. PULMONARY: Clear throughout no rhonchi and no wheezes ABDOMEN: Obese, Soft, nontender, nondistended, normoactive bowel sounds. No palpable organomegaly. MUSCULOSKELETAL: Patient seems to have limitation in range of motion especially his shoulders and elbows. Joints feel stiff EXTREMITIES: Chronic venous stasis changes and cellulitis noted in both lower extremities NEUROLOGICAL: Awake, alert oriented 3, no focal deficit SKIN: Did not evaluate his ulcerations of lower extremities today, wrapped with sterile dressing. - Labs CBC & Chem 7: 01/25/23 03:49 01/25/23 03:49 Labs: Abnormal Lab Results - Last 24 Hours (Table) 01/24/23 01/24/23 01/24/23 Range/Units 11:52 17:51 20:14 RBC (4.30-5.90) m/uL Hgb (13.0-17.5) gm/dL Hct (39.0-53.0) % Sodium (137-145) mmol/L BUN (9-20) mg/dL Glucose (74-99) mg/dL POC Glucose (mg/dL) 173 H 155 H 241 H (70-110) mg/dL Calcium (8.4-10.2) mg/dL 01/25/23 01/25/23 01/25/23 Range/Units 03:49 03:49 06:46 RBC 3.48 L (4.30-5.90) m/uL Hgb 10.6 L (13.0-17.5) gm/dL Hct 33.5 L (39.0-53.0) % Sodium 136 L (137-145) mmol/L BUN 48 H (9-20) mg/dL Glucose 159 H (74-99) mg/dL POC Glucose (mg/dL) 133 H (70-110) mg/dL Calcium 7.6 L (8.4-10.2) mg/dL Assessment and Plan Assessment: Impression: Acute on chronic hypercapnic respiratory failure Acute metabolic encephalopathy secondary to hypercapnia, resolved. Chronic lower extremity cellulitis/right leg cellulitis, possible sepsis Chronic atrial fibrillation Type 2 diabetes with possible diabetic nephropathy Benign essential hypertension dyslipidemia Chronic ulcer of right calf Morbid obesity BMI of over 40 Recommendation: Patient will be given Decadron 4 mg IV push for his joints aches and pains Patient will transfer out of the ICU to a regular medical floor Continue antibiotics as per infectious disease on the case. Continue cardiac medications and eliquis. Continue psych meds as ordered by psychiatry We will continue to follow. Time with Patient: Less than 30
--- NOTE | 2023-01-25 10:44 | P.NPCON ---
History of Present Illness - Reason for Consult acute renal failure - History of Present Illness patient is a 68-year-old male with history of type 2 diabetes, chronic A. fib and morbid obesity with obstructive sleep apnea. Patient was admitted to the hospital with altered mentation. Patient had been significantly restless and agitated and was transferred to the ICU for Precedex. This is now off and m entation has improved. Patient had significant acute kidney injury during his last admission on 11/25 with serum creatinine peaking at 3.53 mg/dL. It has been down and serum creatinine was 1.0 on 01/23/2023. It increased to 1.4 yesterday and now it is back down to 1.15. Patient had low urine output overnight but urine output has improved now post IV Lasix given this morning. Patient has Meeks catheter. Blood pressure has not been low. Maintained on cefazolin for right lower extremity wound/cellulitis. Currently maintained on IV Lasix 40 mg every 12 hours. Review of Systems As per HPI Past Medical History Past Medical History: Atrial Fibrillation, Cancer, Diabetes Mellitus, Hyperlipidemia, Hypertension, Sleep Apnea/CPAP/BIPAP Additional Past Medical History / Comment(s): Basal cell carcinoma, Heart murmur History of Any Multi-Drug Resistant Organisms: None Reported Past Surgical History: No Surgical Hx Reported Additional Past Surgical History / Comment(s): Cataract surgery right eye Past Anesthesia/Blood Transfusion Reactions: No Reported Reaction Past Psychological History: Depression Smoking Status: Never smoker Past Alcohol Use History: None Reported Past Drug Use History: None Reported - Past Family History Mother Family Medical History: Diabetes Mellitus Medications and Allergies Home Medications Medication Instructions Recorded Confirmed Type Apixaban [Eliquis] 5 mg PO BID 04/11/17 01/18/23 History Cholecalciferol [Vitamin D3 (25 25 mcg PO DAILY 12/12/22 01/18/23 History Mcg = 1000 Iu)] FLUoxetine HCL [PROzac] 20 mg PO DAILY 12/12/22 01/18/23 History Ferrous Sulfate [Iron (65 MG 325 mg PO HS 12/12/22 01/18/23 History Elemental)] Insulin Glargine,Hum.rec.anlog 30 units SQ HS 12/12/22 01/18/23 History [Lantus Solostar Pen] Insulin Lispro [humaLOG Kwikpen] See Protocol SQ TID-W/MEALS 12/12/22 01/18/23 History Testosterone [Androgel 1.62% Gel 2 packet TOPICAL DAILY 12/12/22 01/18/23 History Packet] carvediloL [Coreg] 25 mg PO BID 12/12/22 01/18/23 History Atorvastatin [Lipitor] 10 mg PO DAILY tab 12/17/22 01/18/23 Rx Acetaminophen Tab [Tylenol] 500 mg PO Q6HR PRN 01/02/23 01/18/23 History Tamsulosin HCl [Flomax] 0.4 mg PO DAILY 01/02/23 01/18/23 History Vitamin B-12 100mcg 1 tab PO DAILY 01/02/23 01/18/23 History hydroCHLOROthiazide [Hydrodiuril] 25 mg PO DAILY PRN 01/18/23 01/18/23 History traMADol HCL 100 mg PO Q6H PRN 01/18/23 01/18/23 History Allergies Allergy/AdvReac Type Severity Reaction Status Date / Time famotidine [From Pepcid] Allergy Unknown Verified 01/18/23 22:11 Penicillins Allergy Rash/Hives Verified 01/18/23 23:26 hydrocodone AdvReac Hallucinati Verified 01/19/23 14:49 ons lisinopril [From Prinivil] AdvReac Cough Verified 01/18/23 22:11 Physical Exam Vitals: Vital Signs Temp Pulse Resp BP Pulse Ox FiO2 01/25/23 09:00 55 L 21 129/59 92 L 01/25/23 08:46 58 L 01/25/23 08:29 55 L 01/25/23 08:28 93 L 01/25/23 08:00 98.7 F 56 L 13 145/66 97 01/25/23 07:00 57 L 18 147/60 97 01/25/23 06:00 58 L 28 H 140/59 98 01/25/23 05:00 52 L 15 139/58 98 01/25/23 04:21 30 01/25/23 04:00 98.3 F 52 L 14 122/59 97 30 01/25/23 03:00 53 L 15 128/59 95 01/25/23 02:00 56 L 17 126/54 95 01/25/23 01:00 54 L 16 128/53 96 01/25/23 00:11 56 L 19 128/53 96 01/25/23 00:06 30 01/25/23 00:00 98.2 F 56 L 19 151/74 97 30 01/24/23 23:00 59 L 24 114/68 97 01/24/23 22:00 75 24 133/69 96 01/24/23 21:00 60 26 H 128/91 96 01/24/23 20:11 60 01/24/23 20:00 98.4 F 62 12 127/56 95 01/24/23 19:59 62 01/24/23 19:00 69 20 144/66 90 L 01/24/23 18:00 57 L 23 139/57 95 01/24/23 17:00 60 18 153/60 96 01/24/23 16:00 98.5 F 58 L 20 151/68 95 01/24/23 15:00 63 19 122/53 95 01/24/23 14:00 56 L 20 156/62 94 L 01/24/23 13:00 58 L 20 113/72 94 L 01/24/23 12:00 98.1 F 58 L 22 132/58 96 01/24/23 11:00 57 L 24 112/71 94 L Intake and Output 01/24/23 01/25/23 01/25/23 22:59 06:59 14:59 Intake Total 550 120 70 Output Total 303 835 145 Balance 478 -128 -74 Intake: IV 50 60 0.9 kvo 10 ceFAZolin 2 gm In Sodium 50 50 Chloride 0.9% 50 ml @ 100 mls/hr IVPB Q8HR [facility] Rx# :[id number] Intake, IV Titration 100 Amount ceFAZolin 2 gm In Sodium 100 Chloride 0.9% 50 ml @ 100 mls/hr IVPB Q8HR [facility] Rx# :[id number] Oral 450 Lipid 70 10 0.9 kvo 70 10 Output: Urine 303 835 145 Other: Voiding Method Indwelling Catheter Indwelling Catheter Indwelling Catheter Weight 154.1 kg Patient is awake, comfortable, no acute distress Examination of the heart S1 and S2 Examination of the lungs decreased breath sounds at the bases abdomen is soft obese nontender Examination lower extremity shows trace edema left leg, right leg is wrapped JUNIOR ENGINEER exam grossly intact Results - Lab Results Most recent lab results ABG pH 7.38 (7.35-7.45) 01/22/23 10:41 ABG pCO2 45 mmHg (35-45) 01/22/23 10:41 ABG pO2 118 mmHg (83-108) H 01/22/23 10:41 ABG HCO3 27 mmol/L (21-25) H 01/22/23 10:41 ABG O2 Saturation 98.9 % (94-97) H 01/22/23 10:41 Calcium 7.6 mg/dL (8.4-10.2) L 01/25/23 03:49 Magnesium 2.2 mg/dL (1.6-2.3) 01/25/23 03:49 01/25/23 03:49 01/25/23 03:49 Assessment and Plan Assessment: 1. Acute kidney injury, currently improved. Nonoliguric. Urine output was low last night but improved now. I will continue with the IV Lasix. Blood pressure is not low. UA is completely benign on 01/19/2023. 2. History of acute kidney injury during admission in November 2022 secondary to ATN from hypotension, infection and NSAIDs. Serum creatinine had improved to 1.0 mg/dL from peak of 3.5. 3. Mental status changes secondary to hypercapnia him a currently improved 4. Acute on chronic hypercapnic respiratory failure, improved 5. Right Lower extremity cellulitis maintained on antibiotics and chronic ulcer right calf Plan: Continue with current dose of IV Lasix Avoid hypotension Continue to avoid nephrotoxic agents. Repeat labs in a.m.
[2023-01-25 12:22] LABS: Glucose,Whole Blood 267 mg/dL (70-110)
--- NOTE | 2023-01-25 13:52 | P.PN ---
Subjective Progress Note Date: 01/25/23 (]) patient is 68-year-old gentleman with past medical history significant for atrial fibrillation, diabetes mellitus type 2, hyperlipidemia, hypertension, obstructive sleep apnea, basal cell carcinoma, depression Who presented to The hospital because of hallucinations. Patient was recently in the hospital because of encephalopathy and right lower extremity cellulitis, was discharged on doxycycline for 10 days. [facility], he has been intermittently confused over there. Patient has been complaining of hallucinations mostly visual, stating that he was seeing rabbits in his room. No complaint of fever or chills. No complaints of nausea or vomiting. Redness of right lower extremity has improved. Because of this increasing episodes of confusion, patient was brought to the ER Initial lab work in the ER showed WBC 7.1, hemoglobin 11.9, sodium 137, potassium 4.3, BUN 50, creatinine 1.3. CT brain showed atrophy, minimal mucosal thickening within the anterior left right ethmoid air cells, no evidence of acute hemorrhage or stroke Chest x-ray negative for any acute cardiac process Patient was admitted to medicine service 01/21. Patient seen and examined. Confusion has improved. Still complaining of weakness 01/22/2023 Patient is seen and evaluated in follow-up this morning and has been brought to the ICU for increased confusion patient being obtunded and patient is currently on BiPAP with multiple medical consultations following. Patient is not tolerating oral intake and now waking up enough and is currently nothing by mouth. Patient is maintained on Precedex drip as nursing staff reports he was extremely restless while continuing to be obtunded. Continued on IV cefazolin with infectious disease following for right lower extremity cellulitis. Pulmonary is now following and patient is maintained on BiPAP with an FiO2 of 30% and will continue. Titrate as tolerated. Recommend follow-up labs 01/23/2023 Patient is seen and evaluated and continues to be in the ICU on BiPAP overnight although transition to 3 L nasal cannula much more awake and alert today. Patient able to tolerate some oral intake and take medications. Patient is lethargic and report still feeling weak. PT/OT therapy consulted. Patient's blood sugars were lower due to nothing by mouth status yesterday although is tolerating diet will resume long-acting and continue sliding scale for now. Patient is alert and oriented 2-3 not reporting any signs of hallucinations. Patient medications adjusted and patient has been weaned off Precedex. Patient continues on local wound care and IV cefazolin with infectious disease following for right lower extremity cellulitis. Patient will continue on oral Keflex on discharge. Family is looking into other possible ECF locations and he was most recently currently staying at [facility]. Patient's family also concerned he has been having steady decline lately and becomes more confused at night. Patient being monitored in the ICU overnight with possible transfer out. Will discuss with case management and other consultations about possible discharge planning. 01/24/2023 Patient is seen and evaluated in follow-up in the ICU maintained on 3 L via nasal cannula and continues to use BiPAP at night. Patient was instructed to use a CPAP machine in the outpatient setting although reports has not used in years and couldn't tolerate the mask. Per nursing staff patient tolerated BiPAP and is currently maintained on 3 L. Patient with some overload and pulmonary hypertension noted on echo, porcelain waxer started patient on IV Lasix although blood pressures were marginal and urine output was minimal and so a.m. dose of Lasix was held. Kidney functions also elevated this morning. Patient denies worsening shortness of breath. Patient denies chest pain or palpitations. Patient reports not much of an appetite but is eating. Blood sugars have been elevated and will adjust medications accordingly. Patient was able to tolerate oral pills as well again today. Patient with significant weakness would like to go back to where he was at [facility] and social work is following. Per social work family was attempting to look into other facilities although patient does not want to. Currently working on insurance authorization. Pulmonary porcelain waxer recommends ICU monitoring overnight with possible transfer to [facility] tomorrow and no plans for discharge as of yet. Patient is also continued on IV cefazolin with infectious disease following for right lower extremity cellulitis. 01/25/2023 Patient is seen and evaluated in the intensive care unit has been down graded to medical surgical pending a bed. Patient continues on 3L nasal cannula with BiPAP at night. Patient continues on IV lasix Q12. Urine output has improved. Blood pressure has improved, patient continues with significant pitting lower extremity edema. Creatinine has improved to 1.15 today, sodium improved to 136. Patient continues to report significant weakness and has been unable to feed himself and needs encouragement to participate in care. Patient remains on IV cefazolin for the lower extremity cellulitis on the right patient also has a wound to the right ankle patient has local wound care in place and also a wound culture has been ordered today. Local wound care with aquacel silver kerlex and alexey wrap to change daily. ID is following closely. Review of systems: Constitutional: reports of fatigue, no fever, or chills, reports some generalized back pain and body aches Cardiovascular: No reports of chest pain or palpitations Respiratory: No reports of worsening shortness of breath and reports feels somewhat improved GI: No reports of nausea, vomiting, or diarrhea, reports not much of an appetite although is eating. Patient reports the passing gas with no bowel movement in the last few days although reports was having extremely loose stool prior to admission : No reports of dysuria or retention Neurovascular: reports of generalized weakness All medications have been reviewed PHYSICAL EXAMINATION: GENERAL: The patient is alert and oriented x2-3, appears fatigued and somewhat slow although much more alert and awake today. Well developed, well nourished. Morbidly obese. Maintained on 3 L via nasal cannula and was on BiPAP at night HEENT: Pupils are round and equally reacting to light. EOMI. No scleral icterus. No conjunctival pallor. Normocephalic, atraumatic. No pharyngeal erythema. No thyromegaly. CARDIOVASCULAR: S1 and S2 present. No murmurs, rubs, or gallops. PULMONARY: Diminished breath sounds bilaterally ABDOMEN: Soft, obese, nontender, nondistended, normoactive bowel sounds. No palpable organomegaly. MUSCULOSKELETAL: No joint swelling or deformity. EXTREMITIES: Right lower extremity wound seen, erythema improving, some sloughing of skin noted, dressing noted dry and intact NEUROLOGICAL: Gross neurological examination did not reveal any focal deficits. Diffusely weak SKIN: No rashes. Assessment: Medical deconditioning requiring assistance for feeding and all ADLs. Acute delirium with hallucinations, possibly medication effect, toxic/metabolic encephalopathy, improving Acute on chronic hypoxic respiratory failure secondary to sleep apnea, now requiring BiPAP, currently on 3 L via nasal cannula. Using BiPAP at night right lower extremity cellulitis and chronic venous stasis ulcer Atrial fibrillation history Insulin-dependent diabetes mellitus, uncontrolled with hypoglycemia secondary to nothing by mouth status, patient now with hyperglycemia resumed on insulin Hypertension Hyperlipidemia Morbid obesity with BMI of 43.4 History of sleep apnea and does not use CPAP as he cannot tolerate the mask GI prophylaxis DVT prophylaxis anticoagulated with eliquis Full code Plan: Insurance authorization pending and a peer to peer completed for final aut horization Patient has been downgraded to medical/surgical pending bed placement remains in the ICU Continue on IV lasix 40 mg Q12 with intake and output monitoring urinary output is improving Wound culture of the right leg wound ordered patient continues on IV cefazolin and local wound care in place with aquacel kerlex and alexey wrap Continue oxygen support and BIPAP at night patient refuses outpatient CPAP ID, nephrology and pulmonary following closely The impression and plan of care has been dictated by Dayanara Vences, Nurse Practitioner as directed. Dr. Brea MD I have performed a history and physical examination and medical decision making of this patient, discussed the same with the dictator, and agree with the dictators assessment and plan as written, documented as a scribe. Based on total visit time, I have performed more than 50% of this visit. Objective - Vital Signs Vital signs: Vital Signs Temp 98.7 F 01/25/23 08:00 Pulse 60 01/25/23 11:48 Resp 21 01/25/23 09:00 BP 129/59 01/25/23 09:00 Pulse Ox 93 L 01/25/23 11:52 FiO2 30 01/25/23 04:21 Intake & Output 01/24/23 01/25/23 01/25/23 18:59 06:59 18:59 Intake Total 650 420 70 Output Total 550 1000 145 Balance 100 -580 -75 Weight 154.1 kg Intake: IV 50 60 0.9 kvo 10 ceFAZolin 2 gm In Sodium 50 50 Chloride 0.9% 50 ml @ 100 mls/hr IVPB Q8HR [facility] Rx# :[id number] Intake, IV Titration 100 Amount ceFAZolin 2 gm In Sodium 100 Chloride 0.9% 50 ml @ 100 mls/hr IVPB Q8HR [facility] Rx# :[id number] Oral 550 300 Lipid 70 10 0.9 kvo 70 10 Output: Urine 550 1000 145 Other: Voiding Method Indwelling Catheter Indwelling Catheter Indwelling Catheter - Labs CBC & Chem 7: 01/25/23 03:49 01/25/23 03:49 Labs: Abnormal Lab Results - Last 24 Hours (Table) 01/24/23 01/24/23 01/25/23 Range/Units 17:51 20:14 03:49 RBC 3.48 L (4.30-5.90) m/uL Hgb 10.6 L (13.0-17.5) gm/dL Hct 33.5 L (39.0-53.0) % Sodium (137-145) mmol/L BUN (9-20) mg/dL Glucose (74-99) mg/dL POC Glucose (mg/dL) 155 H 241 H (70-110) mg/dL Calcium (8.4-10.2) mg/dL 01/25/23 01/25/23 01/25/23 Range/Units 03:49 06:46 12:11 RBC (4.30-5.90) m/uL Hgb (13.0-17.5) gm/dL Hct (39.0-53.0) % Sodium 136 L (137-145) mmol/L BUN 48 H (9-20) mg/dL Glucose 159 H (74-99) mg/dL POC Glucose (mg/dL) 133 H 267 H (70-110) mg/dL Calcium 7.6 L (8.4-10.2) mg/dL Assessment and Plan Time with Patient: Less than 30
--- NOTE | 2023-01-25 14:58 | P.PN ---
Subjective Progress Note Date: 01/25/23 Principal diagnosis: Right leg cellulitis Patient is a 76-year-old male with a past medical history significant diabetes mellitus hypertension hyperlipidemia obstructive sleep apnea atrial fibrillation with recent admission to the hospital and has been treated for right lower extremity ulceration and cellulitis , presenting back to the hospital with visual hallucination and noticed to having the ulceration to the right lower extremity concern for cellulitis. On today's evaluation that is 01/25/2023, the patient continues to be afebrile, the patient is breathing comfortable nasal cannula oxygen, the patient denies having any chest pain occasional cough no nausea vomiting abdominal pain no diarrhea denies any worsening pain to the right lower extremity Objective - Vital Signs Vital signs: Vital Signs Temp 98.7 F 01/25/23 08:00 Pulse 60 01/25/23 11:48 Resp 21 01/25/23 09:00 BP 129/59 01/25/23 09:00 Pulse Ox 93 L 01/25/23 11:52 FiO2 30 01/25/23 04:21 Intake & Output 01/24/23 01/25/23 01/25/23 18:59 06:59 18:59 Intake Total 650 420 70 Output Total 550 1000 145 Balance 100 -580 -75 Weight 154.1 kg Intake: IV 50 60 0.9 kvo 10 ceFAZolin 2 gm In Sodium 50 50 Chloride 0.9% 50 ml @ 100 mls/hr IVPB Q8HR [facility] Rx# :[id number] Intake, IV Titration 100 Amount ceFAZolin 2 gm In Sodium 100 Chloride 0.9% 50 ml @ 100 mls/hr IVPB Q8HR [facility] Rx# :[id number] Oral 550 300 Lipid 70 10 0.9 kvo 70 10 Output: Urine 550 1000 145 Other: Voiding Method Indwelling Catheter Indwelling Catheter Indwelling Catheter - Exam GENERAL DESCRIPTION: An elderly male lying in bed in no distress RESPIRATORY SYSTEM: Unlabored breathing , decreased breath sounds at bases HEART: S1 S2 regular rate and rhythm , ABDOMEN: Soft , no tenderness EXTREMITIES: Right lower extremity with multiple superficial ulceration no slough tissue surrounding redness has improved - Labs CBC & Chem 7: 01/25/23 03:49 01/25/23 03:49 Labs: Abnormal Lab Results - Last 24 Hours (Table) 01/24/23 01/24/23 01/25/23 Range/Units 17:51 20:14 03:49 RBC 3.48 L (4.30-5.90) m/uL Hgb 10.6 L (13.0-17.5) gm/dL Hct 33.5 L (39.0-53.0) % Sodium (137-145) mmol/L BUN (9-20) mg/dL Glucose (74-99) mg/dL POC Glucose (mg/dL) 155 H 241 H (70-110) mg/dL Calcium (8.4-10.2) mg/dL 01/25/23 01/25/23 01/25/23 Range/Units 03:49 06:46 12:11 RBC (4.30-5.90) m/uL Hgb (13.0-17.5) gm/dL Hct (39.0-53.0) % Sodium 136 L (137-145) mmol/L BUN 48 H (9-20) mg/dL Glucose 159 H (74-99) mg/dL POC Glucose (mg/dL) 133 H 267 H (70-110) mg/dL Calcium 7.6 L (8.4-10.2) mg/dL Assessment and Plan (1) Cellulitis of right leg Current Visit: Yes Status: Acute Code(s): L03.115 - CELLULITIS OF RIGHT LOWER LIMB SNOMED Code(s): 530325460 (2) 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 exposed Current Visit: No Status: Acute Code(s): L97.212 - NON-PRESSURE CHRONIC ULCER OF RIGHT CALF W FAT LAYER EXPOSED SNOMED Code(s): 25179715945417146 Plan: 1patient with right lower extremity venous stasis ulcer and mild cellulitis wound base looks clean no significant slough tissue we will recommend local wound care with the dry Aquacel silver dressing and Andrea wrap for compression to keep the swelling down dressing should be changed daily as per discussion with the nursing staff 2Patient is afebrile white count has been normal right lower extremity swelling redness has decreased intensity, patient to continue local wound care with Aquacel silver dressing and Andrea wrap and continue with the cefazolin and monitor clinical course closely
[2023-01-25] MEDS: traMADol 50 MG TAB PO PRN (16:19)
[2023-01-25 16:43] LABS: Glucose,Whole Blood 321 mg/dL (70-110)
[2023-01-25 20:42] LABS: Glucose,Whole Blood 387 mg/dL (70-110)
[2023-01-25] MEDS: OLANZapine 2.5 MG TAB PO SCH (20:55)
[2023-01-25] MEDS: FERROUS SULFATE 325 MG TAB PO SCH (20:55)
[2023-01-25] MEDS: INSULIN DETEMIR (LEVEMIR) 100 UNIT/ML SYR SQ SCH (20:55)
[2023-01-26 07:17] LABS: Glucose,Whole Blood 242 mg/dL (70-110)
[2023-01-26] MEDS: IPRATROPIUM-ALBUTEROL 3 ML NEB INHALATION SCH ×4 (07:31→21:22)
[2023-01-26] MEDS: INSULIN ASPART (NovoLOG) 100 UNIT/ML VIAL SQ SCH ×6 (08:34→20:47)
[2023-01-26] MEDS: CHOLECALCIFEROL 25 MCG (1000 IU) TABLET PO SCH (08:35)
[2023-01-26] MEDS: FUROSEMIDE 10 MG/ML 4 ML VIAL IV SCH ×2 (08:35→20:47)
[2023-01-26] MEDS: CYANOCOBALAMIN 500 MCG TAB PO SCH (08:35)
[2023-01-26] MEDS: ATORVASTATIN 10 MG TAB PO SCH (08:35)
[2023-01-26] MEDS: TAMSULOSIN 0.4 MG CAP.ER.24H PO SCH (08:35)
[2023-01-26] MEDS: carvediloL 12.5 MG TAB PO SCH ×2 (08:35→17:27)
[2023-01-26] MEDS: APIXABAN 5 MG TAB PO SCH ×2 (08:35→20:45)
[2023-01-26] MEDS: FLUoxetine HCL 20 MG CAP PO SCH (08:35)
--- NOTE | 2023-01-26 09:43 | P.PN ---
Subjective Patient is seen for follow-up for acute kidney injury. Renal function has improved. Patient is currently being diuresed. Serum creatinine 1.1 yesterday. No significant complaints today. Objective - Vital Signs Vital signs: Vital Signs Temp 96.9 F L 01/26/23 07:06 Pulse 64 01/26/23 08:45 Resp 15 01/26/23 07:06 BP 136/56 01/26/23 08:45 Pulse Ox 97 01/26/23 07:32 FiO2 30 01/26/23 04:11 Intake & Output 01/25/23 01/26/23 01/26/23 18:59 06:59 18:59 Intake Total 120 Output Total 1245 3400 Balance -1125 -3400 Intake: IV 110 0.9 kvo 10 ceFAZolin 2 gm In Sodium 100 Chloride 0.9% 50 ml @ 100 mls/hr IVPB Q8HR [facility] Rx# :[id number] Lipid 10 0.9 kvo 10 Output: Urine 1245 3400 Other: Voiding Method Indwelling Catheter Indwelling Catheter # Voids 1 - Exam Patient is awake, comfortable, no acute distress Examination of the heart S1 and S2 Examination of the lungs decreased breath sounds at the bases abdomen is soft obese nontender Examination lower extremity shows 1+ edema left leg, right leg is wrapped MONUMENT ERECTOR exam grossly intact - Labs CBC & Chem 7: 01/25/23 03:49 01/25/23 03:49 Labs: Abnormal Lab Results - Last 24 Hours (Table) 01/25/23 01/25/23 01/25/23 Range/Units 12:11 16:40 20:41 POC Glucose (mg/dL) 267 H 321 H 387 H (70-110) mg/dL 01/26/23 Range/Units 07:16 POC Glucose (mg/dL) 242 H (70-110) mg/dL Microbiology - Last 24 Hours (Table) 01/24/23 10:55 Gram Stain - Preliminary Leg - Right Wound Culture - Preliminary Gram Neg Bacilli Assessment and Plan Assessment: 1. Acute kidney injury, currently improved. Nonoliguric. Maintained on IV Lasix. Blood pressure is not low. UA is completely benign on 01/19/2023. 2. History of acute kidney injury during admission in November 2022 secondary to ATN from hypotension, infection and NSAIDs. Serum creatinine had improved to 1.0 mg/dL from peak of 3.5. 3. Mental status changes secondary to hypercapnia him a currently improved 4. Acute on chronic hypercapnic respiratory failure, improved 5. Right Lower extremity cellulitis maintained on antibiotics and chronic ulcer right calf Plan: Continue with current dose of IV Lasix Avoid hypotension Continue to avoid nephrotoxic agents. Repeat labs in a.m.
[2023-01-26 11:59] LABS: Glucose,Whole Blood 283 mg/dL (70-110)
--- NOTE | 2023-01-26 12:06 | P.PN ---
Subjective Progress Note Date: 01/26/23 This is a 68-year-old white male with history of multiple medical problems, patient is known to have chronic atrial fibrillation, type 2 diabetes, obesity, patient was seen by us back on 12/13/2022, at that time the patient had acute hypercapnia with morbid obesity and obstructive sleep apnea, patient was placed on BiPAP at the time with IPAP of 12 EPAP of 6, and cut down his FiO2 to 30%. His admission back then was mostly related to cellulitis of lower extremities with acute kidney injury, hypotension, treated back then with antibiotics, he was anticoagulated with eliquis, and he was seen by many consultants including nephrology for his renal failure. This time on 01/14/2023, patient apparently h ad a very similar presentation, [facility] was [facility] mostly because of altered mental status, confusion, hallucinations, patient was claiming that he was seeing rabbits in his room. Admitted with acute delirium, and he was seen by psychiatry on consultation, nonetheless the patient continues to be restless agitated, and he was refusing to place his BiPAP on his face. I was notified about this patient, recommended immediate transfer to the ICU, placed on Precedex. And one hour later ABG was done while the patient was on BiPAP, showed a pO2 of 118 pCO2 of 45 and pH of 7.38. His pCO2 on admission was in the 60s. Patient called down nicely, and he seems to be responding well to Precedex and tolerating BiPAP quite nicely. He is on IPAP 14 EPAP of 6, and FiO2 of 30% could not get much history out of the patient as he seems to be agitated and restless upon arrival to the ICU Reevaluated today on , patient remains in the ICU, remains on BiPAP 14/6/30%, remains on Precedex at 0.12 mcg/kg/h, weaning to Precedex and we will likely discontinue this morning. Patient remains calm, does not seem to be in any distress, his mental status is improving, seems to be more oriented and more appropriate today, although he is a bit slow. Labs today showed the incentive 8 hemoglobin 11., electrolytes and renal profile are normal, chest x-ray showed no evidence of active disease. Reevaluated today on 01/24/2023, patient remains in the ICU, doing fairly well, last minute he was on BiPAP at 14/6/30%, he is off Precedex, patient is alert oriented, not confused anymore, and he is not in any distress. He seems to be very appropriate, continues to have significant swelling in the lower extremities, yesterday he received diuretics, his creatinine is up to 1.40 today, hence we will hold on diuresis for now. Chest x-ray done yesterday showed no evidence of acute cardiopulmonary process. Except minimal prominence of the pulmonary vasculature patient is still receiving antibiotics for his bilateral lower extremities wounds, I was able to examine the lower extremities today, and there seems to be no evidence of necrosis, there is mostly sloughing of the skin and erythema. Patient was reevaluated today on 01/25/2023, remains in the ICU, however the patient is doing much better today compared to the last few days. He is on room air, however he is using his BiPAP at night. Remains on Lasix at 40 mg IV push every 12 hours remains on cefazolin. Today the patient feels extremely sore, and feels stiff. Hence I'm recommending a dose of Decadron. Patient continues to have urine output which is excellent, does not seem to be in any distress for of his pulmonary status is concerned, hence I plan to transfer the patient out of the ICU to regular medical floor. WBC count is 7 hemoglobin 10.6 electrolytes are normal BUN is 48 creatinine 1.15, significantly better compared to creatinine yesterday of 1.40. The patient is seen today 01/26/2023 in follow-up on the regular medical floor. He is currently awake and alert, oriented 3. Maintaining O2 saturations in the 90s on 3 L/m per nasal cannula. He did utilize BiPAP last night 14/6 and 30% FiO2. Right leg lower extremity wound positive for gram-negative bacilli. Blood sugar 242. Remains on cefazolin. Continued on DuoNeb inhalations, IV diuretics. Currently in a -4.5 L balance. Anticoagulated with Eliquis. Objective - Vital Signs Vital signs: Vital Signs Temp 96.9 F L 01/26/23 07:06 Pulse 64 01/26/23 11:29 Resp 15 01/26/23 07:06 BP 136/56 01/26/23 08:45 Pulse Ox 97 01/26/23 07:32 FiO2 30 01/26/23 04:11 Intake & Output 01/25/23 01/26/23 01/26/23 18:59 06:59 18:59 Intake Total 120 Output Total 1245 3400 1000 Balance -1125 -3400 -1000 Intake: IV 110 0.9 kvo 10 ceFAZolin 2 gm In Sodium 100 Chloride 0.9% 50 ml @ 100 mls/hr IVPB Q8HR [facility] Rx# :[id number] Lipid 10 0.9 kvo 10 Output: Urine 1245 3400 1000 Other: Voiding Method Indwelling Catheter Indwelling Catheter Indwelling Catheter # Voids 1 - Exam GENERAL: Revealed a pleasant, oriented 68-year-old male morbidly obese, in no distress, on 3 L nasal cannula alternating with BiPAP. Head: Atraumatic, normocephalic. HEENT: Short obese neck. No neck masses. Pupils are round and equally reacting to light. EOMI. No scleral icterus. No conjunctival pallor. CARDIOVASCULAR: Distant S1 and S2, no S3 gallop, no murmur. PULMONARY: Clear throughout no rhonchi and no wheezes ABDOMEN: Obese, Soft, nontender, nondistended, normoactive bowel sounds. No palpable organomegaly. MUSCULOSKELETAL: Patient seems to have limitation in range of motion especially his shoulders and elbows. Joints feel stiff EXTREMITIES: Chronic venous stasis changes and cellulitis noted in both lower extremities NEUROLOGICAL: Awake, alert oriented 3, no focal deficit SKIN: Did not evaluate his ulcerations of lower extremities today, wrapped with sterile dressing. - Labs CBC & Chem 7: 01/25/23 03:49 01/25/23 03:49 Labs: Abnormal Lab Results - Last 24 Hours (Table) 01/25/23 01/25/23 01/25/23 Range/Units 12:11 16:40 20:41 POC Glucose (mg/dL) 267 H 321 H 387 H (70-110) mg/dL 01/26/23 Range/Units 07:16 POC Glucose (mg/dL) 242 H (70-110) mg/dL Microbiology - Last 24 Hours (Table) 01/24/23 10:55 Gram Stain - Preliminary Leg - Right Wound Culture - Preliminary Gram Neg Bacilli Assessment and Plan Assessment: Acute on chronic hypercapnic respiratory failure secondary to obstructive sleep apnea Acute metabolic encephalopathy secondary to hypercapnia, resolved. Chronic lower extremity cellulitis/right leg cellulitis, possible sepsis and cultures with gram-negative bacilli Chronic atrial fibrillation, anticoagulated with Eliquis Type 2 diabetes with possible diabetic nephropathy Benign essential hypertension dyslipidemia Chronic ulcer of right calf Morbid obesity BMI of over 40 Plan: The patient was seen and evaluated Medications and labs reviewed Right leg wound cultures positive for gram-negative bacilli Remains on cefazolin, ID is on the case Currently stable on 3 L nasal cannula, alternating with BiPAP Continue bronchodilators Anticoagulated with Eliquis We'll continue to follow Plan is for subacute rehabilitation at [facility] I have personally seen and examined the patient, performed the documentation and the assessment and plan as written. Number of minutes spent on the visit: 10.
[2023-01-26] MEDS: traMADol 50 MG TAB PO PRN (12:36)
[2023-01-26] MEDS ORDERED: bisacodyL 10 MG SUPP RECTAL PRN (15:23)
--- NOTE | 2023-01-26 15:41 | P.PN ---
Subjective Progress Note Date: 01/26/23 patient is 68-year-old gentleman with past medical history significant for atrial fibrillation, diabetes mellitus type 2, hyperlipidemia, hypertension, obstructive sleep apnea, basal cell carcinoma, depression Who presented to The hospital because of hallucinations. Patient was recently in the hospital because of encephalopathy and right lower extremity cellulitis, was discharged on doxycycline for 10 days. Patient was discharged to assisted facility, he has been intermittently confused over there. Patient has been complaining of hallucinations mostly visual, stating that he was seeing rabbits in his room. No complaint of fever or chills. No complaints of nausea or vomiting. Redness of right lower extremity has improved. Because of this increasing episodes of confusion, patient was brought to the ER Initial lab work in the ER showed WBC 7.1, hemoglobin 11.9, sodium 137, pota ssium 4.3, BUN 50, creatinine 1.3. CT brain showed atrophy, minimal mucosal thickening within the anterior left right ethmoid air cells, no evidence of acute hemorrhage or stroke Chest x-ray negative for any acute cardiac process Patient was admitted to medicine service 01/21. Patient seen and examined. Confusion has improved. Still complaining of weakness 01/22/2023 Patient is seen and evaluated in follow-up this morning and has been brought to the ICU for increased confusion patient being obtunded and patient is currently on BiPAP with multiple medical consultations following. Patient is not tolerating oral intake and now waking up enough and is currently nothing by mouth. Patient is maintained on Precedex drip as nursing staff reports he was extremely restless while continuing to be obtunded. Continued on IV cefazolin with infectious disease following for right lower extremity cellulitis. Pulmonary is now following and patient is maintained on BiPAP with an FiO2 of 30% and will continue. Titrate as tolerated. Recommend follow-up labs 01/23/2023 Patient is seen and evaluated and continues to be in the ICU on BiPAP overnight although transition to 3 L nasal cannula much more awake and alert today. Patient able to tolerate some oral intake and take medications. Patient is lethargic and report still feeling weak. PT/OT therapy consulted. Patient's blood sugars were lower due to nothing by mouth status yesterday although is tolerating diet will resume long-acting and continue sliding scale for now. Patient is alert and oriented 2-3 not reporting any signs of hallucinations. Patient medications adjusted and patient has been weaned off Precedex. Patient continues on local wound care and IV cefazolin with infectious disease following for right lower extremity cellulitis. Patient will continue on oral Keflex on discharge. Family is looking into other possible ECF locations and he was most recently currently staying at [facility]. Patient's family also concerned he has been having steady decline lately and becomes more confused at night. Patient b eing monitored in the ICU overnight with possible transfer out. Will discuss with case management and other consultations about possible discharge planning. 01/24/2023 Patient is seen and evaluated in follow-up in the ICU maintained on 3 L via nasal cannula and continues to use BiPAP at night. Patient was instructed to use a CPAP machine in the outpatient setting although reports has not used in years and couldn't tolerate the mask. Per nursing staff patient tolerated BiPAP and is currently maintained on 3 L. Patient with some overload and pulmonary hypertension noted on echo, dermatology teacher started patient on IV Lasix although blood pressures were marginal and urine output was minimal and so a.m. dose of Lasix was held. Kidney functions also elevated this morning. Patient denies worsening shortness of breath. Patient denies chest pain or palpitations. Patient reports not much of an appetite but is eating. Blood sugars have been elevated and will adjust medications accordingly. Patient was able to tolerate oral pills as well again today. Patient with significant weakness would like to go back to where he was at [facility] and social work is following. Per social work family was attempting to look into other facilities although patient does not want to. Currently working on insurance authorization. Pulmonary dermatology teacher recommends ICU monitoring overnight with possible transfer to [facility] tomorrow and no plans for discharge as of yet. Patient is also continued on IV cefazolin with infectious disease following for right lower extremity cellulitis. 01/25/2023 Patient is seen and evaluated in the intensive care unit has been down graded to medical surgical pending a bed. Patient continues on 3L nasal cannula with BiPAP at night. Patient continues on IV lasix Q12. Urine output has improved. Blood pressure has improved, patient continues with significant pitting lower extremity edema. Creatinine has improved to 1.15 today, sodium improved to 136. Patient continues to report significant weakness and has been unable to feed himself and needs encouragement to participate in care. Patient remains on IV cefazolin for the lower extremity cellulitis on the right patient also has a wound to the right ankle patient has local wound care in place and also a wound culture has been ordered today. Local wound care with aquacel silver kerlex and whitney wrap to change daily. ID is following closely. 01/26/2023 Patient is evaluated on the medical floor has been moved out of the ICU. Mentation has improved patient is currently alert x3. Complaining of left shoulder pain and limited mobility unable to elevate past midline states it was xrayed in the past with no fracture. Patient continues on IV cefepime and local wound care with aquacel kerlex and whitney wrap. Would recommending to WHITNEY wrap bilateral lower extremity patient does continue with significant lower extremity edema. Scheduled insulin has been added and if blood glucose remains elevated in the AM would recommending adding AM levemir in addition to the 30 units of levemir at HS. Continues on IV lasix 40 mg Q12 hr at this time and has indwelling catheter in place, urine output 6L in the last 24 hours. Afebrile, heart rate 66, blood pressure 146/56, 96% 3L nasal cannula. Review of systems: Constitutional: reports of fatigue, no fever, or chills, reports some generalized back pain and body aches Cardiovascular: No reports of chest pain or palpitations Respiratory: No reports of worsening shortness of breath and reports feels somewhat improved GI: No reports of nausea, vomiting, or diarrhea, reports not much of an appetite although is eating. passing gas no BM. : No reports of dysuria or retention Neurovascular: reports of generalized weakness All medications have been reviewed PHYSICAL EXAMINATION: GENERAL: The patient is alert and oriented x2-3, appears fatigued and somewhat s low although much more alert and awake today. Well developed, well nourished. Morbidly obese. Maintained on 3 L via nasal cannula and was on BiPAP at night HEENT: Pupils are round and equally reacting to light. EOMI. No scleral icterus. No conjunctival pallor. Normocephalic, atraumatic. No pharyngeal erythema. No thyromegaly. CARDIOVASCULAR: S1 and S2 present. No murmurs, rubs, or gallops. PULMONARY: Diminished breath sounds bilaterally ABDOMEN: Soft, obese, nontender, nondistended, normoactive bowel sounds. No palpable organomegaly. MUSCULOSKELETAL: No joint swelling or deformity. EXTREMITIES: Right lower extremity wound seen, erythema improving, some sloughing of skin noted, dressing noted dry and intact NEUROLOGICAL: Gross neurological examination did not reveal any focal deficits. Diffusely weak SKIN: No rashes. Assessment: Medical deconditioning requiring assistance for feeding and all ADLs currently a max assist Acute delirium with hallucinations, possibly medication effect, toxic/metabolic encephalopathy, improved and currently alert x 3. Off precedex. Acute on chronic hypoxic respiratory failure secondary to sleep apnea and hypercapnia, currently on 3 L via nasal cannula. Using BiPAP at night. Right lower extremity cellulitis and chronic venous stasis ulcer Paroxysmal atrial fibrillation currently normal sinus rhythm Insulin-dependent diabetes mellitus, uncontrolled with hypoglycemia secondary to nothing by mouth status, patient now with hyperglycemia resumed on insulin Left shoulder pain and limited range of motion Hypertension Hyperlipidemia Morbid obesity with BMI of 43.4 History of sleep apnea and does not use CPAP as he cannot tolerate the mask GI prophylaxis DVT prophylaxis anticoagulated with eliquis Full code Plan: Patient has been downgraded to medical/surgical Continue on IV lasix 40 mg Q12 with intake and output monitoring urinary output is improving Prelim wound culture showing gram negative bacili on Iv cefepime and local wound care in place with aquacel kerlex and whitney wrap Continue oxygen support and BIPAP at night patient refuses outpatient CPAP Left shoulder xray and orthopedics consultation Continue accuchecks ACHS and sliding scale, scheduled novolog and levemir ID, nephrology and pulmonary following closely Follow up labs in AM Plan for return to [facility] on discharge to continue subacute rehab --Peer to Peer has been completed 01/26/23 at 1515 and patient has been approved for return to [facility] after discussion with Dr. Nahid Huerta with [facility]. The impression and plan of care has been dictated by Dayanara Vences Nurse Practitioner as directed. Dr. Brea MD I have performed a history and physical examination and medical decision making of this patient, discussed the same with the dictator, and agree with the dictators assessment and plan as written, documented as a scribe. Based on total visit time, I have performed more than 50% of this visit. Objective - Vital Signs Vital signs: Vital Signs Temp 98.4 F 01/26/23 13:33 Pulse 68 01/26/23 13:33 Resp 18 01/26/23 13:33 BP 146/56 01/26/23 13:33 Pulse Ox 96 01/26/23 13:33 FiO2 30 01/26/23 04:11 Intake & Output 01/25/23 01/26/23 01/26/23 18:59 06:59 18:59 Intake Total 120 Output Total 1245 3400 1650 Balance -0967 -2880 -1353 Intake: IV 110 0.9 kvo 10 ceFAZolin 2 gm In Sodium 100 Chloride 0.9% 50 ml @ 100 mls/hr IVPB Q8HR [facility] Rx# :[id number] Lipid 10 0.9 kvo 10 Output: Urine 1245 3400 1650 Other: Voiding Method Indwelling Catheter Indwelling Catheter Indwelling Catheter # Voids 1 - Labs CBC & Chem 7: 01/25/23 03:49 01/25/23 03:49 Labs: Abnormal Lab Results - Last 24 Hours (Table) 01/25/23 01/25/23 01/26/23 Range/Units 16:40 20:41 07:16 POC Glucose (mg/dL) 321 H 387 H 242 H (70-110) mg/dL 01/26/23 Range/Units 11:58 POC Glucose (mg/dL) 283 H (70-110) mg/dL Microbiology - Last 24 Hours (Table) 01/24/23 10:55 Gram Stain - Preliminary Leg - Right Wound Culture - Preliminary Gram Neg Bacilli Assessment and Plan Time with Patient: Less than 30
--- NOTE | 2023-01-26 17:17 | XR ---
Left shoulder. HISTORY: Pain and limited range of motion COMPARISON: None. TECHNIQUE: 4 views left shoulder were obtained. There is superior subluxation of glenohumeral joint with near impaction on the acromion processes sca pula. There is moderate degeneration of the AC joint. There is no fracture or focal intraosseous abno rmality. Soft tissues are normal. IMPRESSION: 1. Moderate AC joint degeneration. 2. Superior subluxation of glenohumeral joint consistent with a chronic rotator cuff tear.
[2023-01-26 17:21] LABS: Glucose,Whole Blood 308 mg/dL (70-110)
[2023-01-26] MEDS: CEFEPIME 2 GM in SODIUM CHLORIDE 0.9% 100 ML IVPB SCH ×2 (17:23→23:44)
[2023-01-26] MEDS ORDERED: polyethylene glycoL 3350 17 GM POWD.PACK PO STA (17:35)
--- NOTE | 2023-01-26 17:35 | P.PN ---
Subjective Progress Note Date: 01/26/23 Principal diagnosis: Right leg cellulitis Patient is a 76-year-old male with a past medical history significant diabetes mellitus hypertension hyperlipidemia obstructive sleep apnea atrial fibrillation with recent admission to the hospital and has been treated for right lower extremity ulceration and cellulitis , presenting back to the hospital with visual hallucination and noticed to having the ulceration to the right lower extremity concern for cellulitis. On today's evaluation that is 01/26/2023, the patient remains to be afebrile, the patient is breathing comfortably on 3 L nasal cannula oxygen, the patient denies having any chest pain occasional cough no nausea vomiting abdominal pain no diarrhea denies any worsening pain to the right lower extremity, patient complaining of constipation with no bowel movement since Friday Objective - Vital Signs Vital signs: Vital Signs Temp 98.4 F 01/26/23 13:33 Pulse 68 01/26/23 13:33 Resp 18 01/26/23 13:33 BP 146/56 01/26/23 13:33 Pulse Ox 96 01/26/23 13:33 FiO2 30 01/26/23 04:11 Intake & Output 01/25/23 01/26/23 01/26/23 18:59 06:59 18:59 Intake Total 120 Output Total 1245 3400 1650 Balance -1125 -3400 -1650 Intake: IV 110 0.9 kvo 10 ceFAZolin 2 gm In Sodium 100 Chloride 0.9% 50 ml @ 100 mls/hr IVPB Q8HR [facility] Rx# :[id number] Lipid 10 0.9 kvo 10 Output: Urine 1245 3400 1650 Other: Voiding Method Indwelling Catheter Indwelling Catheter Indwelling Catheter # Voids 1 - Exam GENERAL DESCRIPTION: An elderly male lying in bed in no distress RESPIRATORY SYSTEM: Unlabored breathing , decreased breath sounds at bases HEART: S1 S2 regular rate and rhythm , ABDOMEN: Soft , no tenderness EXTREMITIES: Right lower extremity with multiple superficial ulceration no slough tissue surrounding redness has improved - Labs CBC & Chem 7: 01/25/23 03:49 01/25/23 03:49 Labs: Abnormal Lab Results - Last 24 Hours (Table) 01/25/23 01/25/23 01/26/23 Range/Units 16:40 20:41 07:16 POC Glucose (mg/dL) 321 H 387 H 242 H (70-110) mg/dL 01/26/23 Range/Units 11:58 POC Glucose (mg/dL) 283 H (70-110) mg/dL Microbiology - Last 24 Hours (Table) 01/24/23 10:55 Gram Stain - Preliminary Leg - Right Wound Culture - Preliminary Gram Neg Bacilli Assessment and Plan (1) Cellulitis of right leg Current Visit: Yes Status: Acute Code(s): L03.115 - CELLULITIS OF RIGHT LOWER LIMB SNOMED Code(s): 551529962 (2) 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 exposed Current Visit: No Status: Acute Code(s): L97.212 - NON-PRESSURE CHRONIC ULCER OF RIGHT CALF W FAT LAYER EXPOSED SNOMED Code(s): 94767397332180055 Plan: 1patient with right lower extremity venous stasis ulcer and mild cellulitis wound base looks clean no significant slough tissue we will recommend local wound care with the dry Aquacel silver dressing and Andrea wrap for compression to keep the swelling down dressing should be changed daily as per discussion with the nursing staff 2Patient is afebrile white count has been normal right lower extremity swelling redness has decreased intensity, patient did have low cultures obtained which are now growing gram-negative antibiotic has been switched to cefepime while waiting for sensitivity to finalize Time with Patient: Less than 30
[2023-01-26 20:41] LABS: Glucose,Whole Blood 320 mg/dL (70-110)
[2023-01-26] MEDS: DOCUSATE 100 MG CAP PO SCH (20:45)
[2023-01-26] MEDS: OLANZapine 2.5 MG TAB PO SCH (20:45)
[2023-01-26] MEDS: FERROUS SULFATE 325 MG TAB PO SCH (20:45)
[2023-01-26] MEDS: INSULIN DETEMIR (LEVEMIR) 100 UNIT/ML SYR SQ SCH (20:47)
[2023-01-27 07:04] LABS: Glucose,Whole Blood 287 mg/dL (70-110)
[2023-01-27] MEDS: CEFEPIME 2 GM in SODIUM CHLORIDE 0.9% 100 ML IVPB SCH ×3 (07:11→23:31)
[2023-01-27] MEDS: carvediloL 12.5 MG TAB PO SCH ×2 (07:51→17:28)
[2023-01-27] MEDS: ATORVASTATIN 10 MG TAB PO SCH (07:51)
[2023-01-27] MEDS: DOCUSATE 100 MG CAP PO SCH ×2 (07:52→23:32)
[2023-01-27] MEDS: CYANOCOBALAMIN 500 MCG TAB PO SCH (07:52)
[2023-01-27] MEDS: APIXABAN 5 MG TAB PO SCH ×2 (07:52→23:32)
[2023-01-27] MEDS: TAMSULOSIN 0.4 MG CAP.ER.24H PO SCH (07:52)
[2023-01-27] MEDS: CHOLECALCIFEROL 25 MCG (1000 IU) TABLET PO SCH (07:52)
[2023-01-27] MEDS: INSULIN ASPART (NovoLOG) 100 UNIT/ML VIAL SQ SCH ×7 (07:52→23:32)
[2023-01-27] MEDS: FLUoxetine HCL 20 MG CAP PO SCH (07:52)
[2023-01-27] MEDS: IPRATROPIUM-ALBUTEROL 3 ML NEB INHALATION SCH ×4 (08:45→19:47)
[2023-01-27] MEDS: FUROSEMIDE 10 MG/ML 4 ML VIAL IV SCH (09:56)
[2023-01-27 11:05] LABS: Basophils # (A) 0.01 X 10*3/uL (0.00-0.10); Basophils % (A) 0.2 %; Eosinophils # (A) 0.03 X 10*3/uL (0.04-0.35); Eosinophils % (A) 0.5 %; HCT 32.6 % (39.6-50.0); HGB 9.9 d/dL (12.0-15.0); Lymphocytes # (A) 1.11 X 10*3/uL (0.90-5.00); Lymphocytes % (A) 16.8 %; MCH 28.5 pg (27.0-32.0); MCHC 30.4 d/dL (32.0-37.0); MCV 93.9 FL (80.0-97.0); Mean Platelet Volume 9.8 FL (9.5-12.2); Monocytes # (A) 0.87 X 10*3/uL (0.20-1.00); Monocytes % (A) 13.2 %; NRBC Per 100 WBC 0 X 10*3/uL (0.00-0.01); Neutrophils # (A) 4.54 X 10*3/uL (1.80-7.70); Neutrophils % (A) 68.5 %; Platelet Count 274 X 10*3/uL (140-440); RBC 3.47 X 10*6/uL (4.40-5.60); RDW 14.3 % (11.5-14.5); WBC 6.61 X 10*3/uL (4.50-10.00)
[2023-01-27 11:21] LABS: Magnesium 2.1 mg/dL (1.5-2.4)
--- NOTE | 2023-01-27 11:39 | P.PN ---
Subjective Progress Note Date: 01/27/23 This is a 68-year-old white male with history of multiple medical problems, patient is known to have chronic atrial fibrillation, type 2 diabetes, obesity, patient was seen by us back on 12/13/2022, at that time the patient had acute hypercapnia with morbid obesity and obstructive sleep apnea, patient was placed on BiPAP at the time with IPAP of 12 EPAP of 6, and cut down his FiO2 to 30%. His admission back then was mostly related to cellulitis of lower extremities with acute kidney injury, hypotension, treated back then with antibiotics, he was anticoagulated with eliquis, and he was seen by many consultants including nephrology for his renal failure. This time on 01/14/2023, patient apparently h ad a very similar presentation, he was sent from the custodial mostly because of altered mental status, confusion, hallucinations, patient was claiming that he was seeing rabbits in his room. Admitted with acute delirium, and he was seen by psychiatry on consultation, nonetheless the patient continues to be restless agitated, and he was refusing to place his BiPAP on his face. I was notified about this patient, recommended immediate transfer to the ICU, placed on Precedex. And one hour later ABG was done while the patient was on BiPAP, showed a pO2 of 118 pCO2 of 45 and pH of 7.38. His pCO2 on admission was in the 60s. Patient called down nicely, and he seems to be responding well to Precedex and tolerating BiPAP quite nicely. He is on IPAP 14 EPAP of 6, and FiO2 of 30% could not get much history out of the patient as he seems to be agitated and restless upon arrival to the ICU Reevaluated today on , patient remains in the ICU, remains on BiPAP 14/6/30%, remains on Precedex at 0.12 mcg/kg/h, weaning to Precedex and we will likely discontinue this morning. Patient remains calm, does not seem to be in any distress, his mental status is improving, seems to be more oriented and more appropriate today, although he is a bit slow. Labs today showed the incentive 8 hemoglobin 11., electrolytes and renal profile are normal, chest x-ray showed no evidence of active disease. Reevaluated today on 01/24/2023, patient remains in the ICU, doing fairly well, last minute he was on BiPAP at 14/6/30%, he is off Precedex, patient is alert oriented, not confused anymore, and he is not in any distress. He seems to be very appropriate, continues to have significant swelling in the lower extremities, yesterday he received diuretics, his creatinine is up to 1.40 today, hence we will hold on diuresis for now. Chest x-ray done yesterday showed no evidence of acute cardiopulmonary process. Except minimal prominence of the pulmonary vasculature patient is still receiving antibiotics for his bilateral lower extremities wounds, I was able to examine the lower extremities today, and there seems to be no evidence of necrosis, there is mostly sloughing of the skin and erythema. Patient was reevaluated today on 01/25/2023, remains in the ICU, however the patient is doing much better today compared to the last few days. He is on room air, however he is using his BiPAP at night. Remains on Lasix at 40 mg IV push every 12 hours remains on cefazolin. Today the patient feels extremely sore, and feels stiff. Hence I'm recommending a dose of Decadron. Patient continues to have urine output which is excellent, does not seem to be in any distress for of his pulmonary status is concerned, hence I plan to transfer the patient out of the ICU to regular medical floor. WBC count is 7 hemoglobin 10.6 electrolytes are normal BUN is 48 creatinine 1.15, significantly better compared to creatinine yesterday of 1.40. The patient is seen today 01/26/2023 in follow-up on the regular medical floor. He is currently awake and alert, oriented 3. Maintaining O2 saturations in the 90s on 3 L/m per nasal cannula. He did utilize BiPAP last night 14/6 and 30% FiO2. Right leg lower extremity wound positive for gram-negative bacilli. Blood sugar 242. Remains on cefazolin. Continued on DuoNeb inhalations, IV diuretics. Currently in a -4.5 L balance. Anticoagulated with Eliquis. The patient is seen today 01/27/2023 in follow-up on the regular medical floor. He is sitting up in bed. Awake and alert in no acute distress. Maintaining O2 saturations in the 90s on 3 L/m per nasal cannula. He did utilize BiPAP last evening 14/6 and 30% FiO2. Right lower extremity wound positive for gram- negative bacilli. White count 6.6. Hemoglobin 9.9. Platelets 274. Blood glucose 287. Magnesium 2.1. He remains in a -3.8 L balance. Continued on DuoNeb inhalations. He remains on cefepime. Remains on IV diuretics. Anticoagulated with Eliquis. Objective - Vital Signs Vital signs: Vital Signs Temp 97.5 F L 01/27/23 07:05 Pulse 70 01/27/23 08:59 Resp 18 01/27/23 07:05 BP 148/76 01/27/23 07:05 Pulse Ox 97 01/27/23 08:45 FiO2 30 01/27/23 04:11 Intake & Output 01/26/23 01/27/23 01/27/23 18:59 06:59 18:59 Intake Total 590 Output Total 1900 2500 Balance -1899 -1909 Intake: Oral 590 Output: Urine 1900 2500 Other: Voiding Method Indwelling Catheter Indwelling Catheter Indwelling Catheter - Exam GENERAL: Revealed an alert, oriented 68-year-old male, on 3 L nasal cannula alternating with BiPAP. Head: Atraumatic, normocephalic. HEENT: Short obese neck. No neck masses. Pupils are round and equally reacting to light. EOMI. No scleral icterus. No conjunctival pallor. CARDIOVASCULAR: Distant S1 and S2, no S3 gallop, positive murmur. PULMONARY: Clear throughout no rhonchi and no wheezes ABDOMEN: Obese, Soft, nontender, nondistended, normoactive bowel sounds. No palpable organomegaly. MUSCULOSKELETAL: Patient seems to have limitation in range of motion especially his shoulders and elbows. Joints feel stiff EXTREMITIES: Chronic venous stasis changes and cellulitis noted in both lower extremities NEUROLOGICAL: Awake, alert oriented 3, no focal deficit SKIN: Did not evaluate his ulcerations of lower extremities today, wrapped with sterile dressing. - Labs CBC & Chem 7: 01/27/23 05:32 01/25/23 03:49 Labs: Abnormal Lab Results - Last 24 Hours (Table) 01/26/23 01/26/23 01/26/23 Range/Units 11:58 17:20 20:39 RBC (4.40-5.60) X 10*6/uL Hgb (12.0-15.0) d/dL Hct (39.6-50.0) % MCHC (32.0-37.0) d/dL Eosinophils # (0.04-0.35) X 10*3/uL POC Glucose (mg/dL) 283 H 308 H 320 H (70-110) mg/dL 01/27/23 01/27/23 Range/Units 05:32 07:02 RBC 3.47 L (4.40-5.60) X 10*6/uL Hgb 9.9 L (12.0-15.0) d/dL Hct 32.6 L (39.6-50.0) % MCHC 30.4 L (32.0-37.0) d/dL Eosinophils # 0.03 L (0.04-0.35) X 10*3/uL POC Glucose (mg/dL) 287 H (70-110) mg/dL Microbiology - Last 24 Hours (Table) 01/24/23 10:55 Gram Stain - Preliminary Leg - Right Wound Culture - Preliminary Gram Neg Bacilli Assessment and Plan Assessment: Acute on chronic hypercapnic respiratory failure secondary to obstructive sleep apnea Acute metabolic encephalopathy secondary to hypercapnia, resolved. Alert and oriented 3 Chronic lower extremity cellulitis/right leg cellulitis, possible sepsis and cultures with gram-negative bacilli. On cefepime Chronic atrial fibrillation, anticoagulated with Eliquis Severe aortic stenosis Moderate pulmonary hypertension Type 2 diabetes with possible diabetic nephropathy Benign essential hypertension dyslipidemia Chronic ulcer of right calf Morbid obesity BMI of over 40 Plan: The patient was seen and evaluated Medications and labs reviewed Currently stable on 3 L nasal cannula, alternating with BiPAP Continue bronchodilators Antibiotics per ID services Anticoagulated with Eliquis Plan is for subacute rehabilitation at [facility] I have personally seen and examined the patient, performed the documentation and the assessment and plan as written. Number of minutes spent on the visit: 10.
[2023-01-27 11:41] LABS: BUN/Creat Ratio 40.08 Ratio (12.00-20.00); Blood Urea Nitrogen 48.1 mg/dL (9.0-27.0); Calcium 8.2 mg/dL (8.7-10.3); Chloride 96 mmol/L (96-109); Glucose 268 mg/dL (70-110); Potassium 5.2 mmol/L (3.5-5.5); Sodium 135 mmol/L (135-145)
[2023-01-27] MEDS ORDERED: bisacodyL 5 MG TABLET.DR PO STA (11:52)
[2023-01-27 12:14] LABS: Glucose,Whole Blood 271 mg/dL (70-110)
--- NOTE | 2023-01-27 12:20 | P.PN ---
Subjective Patient is seen for follow-up for acute kidney injury. Renal function has improved. Patient is currently being diuresed. Serum creatinine 1.2 No significant complaints today. Urine output at 4.4 L for 24 hours. Objective - Vital Signs Vital signs: Vital Signs Temp 97.5 F L 01/27/23 07:05 Pulse 74 01/27/23 11:51 Resp 18 01/27/23 07:05 BP 148/76 01/27/23 07:05 Pulse Ox 97 01/27/23 08:45 FiO2 30 01/27/23 04:11 Intake & Output 01/26/23 01/27/23 01/27/23 18:59 06:59 18:59 Intake Total 590 Output Total 1900 2500 Balance -190 -191 Intake: Oral 590 Output: Urine 1900 2500 Other: Voiding Method Indwelling Catheter Indwelling Catheter Indwelling Catheter - Exam Patient is awake, comfortable, no acute distress Examination of the heart S1 and S2 Examination of the lungs decreased breath sounds at the bases abdomen is soft obese nontender Examination lower extremity shows 1+ edema left leg, right leg is wrapped [employer] exam grossly intact - Labs CBC & Chem 7: 01/27/23 05:32 01/27/23 05:32 Labs: Abnormal Lab Results - Last 24 Hours (Table) 01/26/23 01/26/23 01/27/23 Range/Units 17:20 20:39 05:32 RBC 3.47 L (4.40-5.60) X 10*6/uL Hgb 9.9 L (12.0-15.0) d/dL Hct 32.6 L (39.6-50.0) % MCHC 30.4 L (32.0-37.0) d/dL Eosinophils # 0.03 L (0.04-0.35) X 10*3/uL BUN (9.0-27.0) mg/dL BUN/Creatinine Ratio (12.00-20.00) Ratio Glucose (70-110) mg/dL POC Glucose (mg/dL) 308 H 320 H (70-110) mg/dL Calcium (8.7-10.3) mg/dL 01/27/23 01/27/23 01/27/23 Range/Units 05:32 07:02 12:13 RBC (4.40-5.60) X 10*6/uL Hgb (12.0-15.0) d/dL Hct (39.6-50.0) % MCHC (32.0-37.0) d/dL Eosinophils # (0.04-0.35) X 10*3/uL BUN 48.1 H (9.0-27.0) mg/dL BUN/Creatinine Ratio 40.08 H (12.00-20.00) Ratio Glucose 268 H (70-110) mg/dL POC Glucose (mg/dL) 287 H 271 H (70-110) mg/dL Calcium 8.2 L (8.7-10.3) mg/dL Assessment and Plan Assessment: 1. Acute kidney injury, currently improved. Nonoliguric. Maintained on IV Lasix. Blood pressure is not low. UA is completely benign on 01/19/2023. 2. History of acute kidney injury during admission in November 2022 secondary to ATN from hypotension, infection and NSAIDs. Serum creatinine had improved to 1.0 mg/dL from peak of 3.5 during last admission. 3. Mental status changes secondary to hypercapnia him a currently improved 4. Acute on chronic hypercapnic respiratory failure, improved 5. Right Lower extremity cellulitis maintained on antibiotics and chronic ulcer right calf Plan: Continue with current dose of IV Lasix. Switch to oral dose tomorrow. Avoid hypotension Continue to avoid nephrotoxic agents. Repeat labs in a.m.
--- NOTE | 2023-01-27 12:49 | P.CNOR ---
History of Present Illness - HPI Consult date: 01/27/23 History of present illness: This is a 68-year-old male who is admitted for right lower extremity cellulitis and delirium. Patient's past medical history significant for acute on chronic hypoxemic respiratory failure, atrial fibrillation, diabetes mellitus, hyperlipidemia, hypertension, sleep apnea, history of basal cell carcinoma, and obesity. Patient was recently transferred out of the ICU where he was admitted for delirium and hallucinations. Orthopedics is consulted due to left shoulder pain. Patient is seen and evaluated at bedside today. Patient states that he had a fall 45 weeks ago and this is when his shoulder pain started. Patient states that he has had limited range of motion since his fall. Patient denies any significant pain at rest. Patient states that with certain movements he notices pain in the left shoulder. Patient states that prior to this injury he did not have any significant issues with the left shoulder. Patient denies any fever/chills, numbness, weakness or tingling. Review of Systems See HPI. Past Medical History Past Medical History: Atrial Fibrillation, Cancer, Diabetes Mellitus, Hyperlipidemia, Hypertension, Sleep Apnea/CPAP/BIPAP Additional Past Medical History / Comment(s): Basal cell carcinoma, Heart murmur History of Any Multi-Drug Resistant Organisms: None Reported Past Surgical History: No Surgical Hx Reported Additional Past Surgical History / Comment(s): Cataract surgery right eye Past Anesthesia/Blood Transfusion Reactions: No Reported Reaction Past Psychological History: Depression Smoking Status: Never smoker Past Alcohol Use History: None Reported Past Drug Use History: None Reported - Past Family History Mother Family Medical History: Diabetes Mellitus Medications and Allergies Home Medications Medication Instructions Recorded Confirmed Type Apixaban [Eliquis] 5 mg PO BID 04/11/17 01/18/23 History Cholecalciferol [Vitamin D3 (25 25 mcg PO DAILY 12/12/22 01/18/23 History Mcg = 1000 Iu)] FLUoxetine HCL [PROzac] 20 mg PO DAILY 12/12/22 01/18/23 History Ferrous Sulfate [Iron (65 MG 325 mg PO HS 12/12/22 01/18/23 History Elemental)] Insulin Glargine,Hum.rec.anlog 30 units SQ HS 12/12/22 01/18/23 History [Lantus Solostar Pen] Insulin Lispro [humaLOG Kwikpen] See Protocol SQ TID-W/MEALS 12/12/22 01/18/23 History Testosterone [Androgel 1.62% Gel 2 packet TOPICAL DAILY 12/12/22 01/18/23 History Packet] carvediloL [Coreg] 25 mg PO BID 12/12/22 01/18/23 History Atorvastatin [Lipitor] 10 mg PO DAILY tab 12/17/22 01/18/23 Rx Acetaminophen Tab [Tylenol] 500 mg PO Q6HR PRN 01/02/23 01/18/23 History Tamsulosin HCl [Flomax] 0.4 mg PO DAILY 01/02/23 01/18/23 History Vitamin B-12 100mcg 1 tab PO DAILY 01/02/23 01/18/23 History hydroCHLOROthiazide [Hydrodiuril] 25 mg PO DAILY PRN 01/18/23 01/18/23 History traMADol HCL 100 mg PO Q6H PRN 01/18/23 01/18/23 History Allergies Allergy/AdvReac Type Severity Reaction Status Date / Time famotidine [From Pepcid] Allergy Unknown Verified 01/18/23 22:11 Penicillins Allergy Rash/Hives Verified 01/18/23 23:26 hydrocodone AdvReac Hallucinati Verified 01/19/23 14:49 ons lisinopril [From Prinivil] AdvReac Cough Verified 01/18/23 22:11 Physical Examination On exam patient is resting comfortably in bed in no acute distress. Patient is alert and oriented 3. Exam of the left upper extremity reveals limited active motion of the left upper extremity secondary to pain. Skin is intact. There is no erythema or ecchymosis. Sensation intact to the left upper extremity. Neurovascular status and circulatory status are intact. Results X-rays of the left shoulder reveal AC joint arthritis. No fracture or dislocation. - Labs Labs: Abnormal Lab Results - Last 24 Hours (Table) 01/26/23 01/26/23 01/26/23 Range/Units 11:58 17:20 20:39 POC Glucose (mg/dL) 283 H 308 H 320 H (70-110) mg/dL 01/27/23 Range/Units 07:02 POC Glucose (mg/dL) 287 H (70-110) mg/dL Microbiology - Last 24 Hours (Table) 01/24/23 10:55 Gram Stain - Preliminary Leg - Right Wound Culture - Preliminary Gram Neg Bacilli H & H 01/18/23 01/22/23 01/22/23 Range/Units 21:04 05:55 07:54 Hgb 11.9 L 10.6 L 10.7 L (13.0-17.5) gm/dL Hct 36.4 L 34.5 L 33.8 L (39.0-53.0) % 01/23/23 01/25/23 Range/Units 03:51 03:49 Hgb 11.6 L 10.6 L (13.0-17.5) gm/dL Hct 36.7 L 33.5 L (39.0-53.0) % Coagulation 01/18/23 Range/Units 21:04 INR 1.1 (<1.2) Result Diagrams: 01/27/23 05:32 01/27/23 05:32 Assessment and Plan Assessment: AC joint arthritis, left shoulder. (1) Left shoulder pain Current Visit: Yes Status: Acute Code(s): M25.512 - PAIN IN LEFT SHOULDER SNOMED Code(s): 5406818901 Plan: X-rays of the left shoulder are reviewed revealing AC joint arthritis. It is discussed at bedside that there is no surgical intervention planned. Recommend that patient follow-up as an outpatient for possible injections once his right leg infection has improved.
[2023-01-27] MEDS: traMADol 50 MG TAB PO PRN (16:54)
[2023-01-27 17:15] LABS: Glucose,Whole Blood 265 mg/dL (70-110)
[2023-01-27] MEDS: ONDANSETRON 4 MG/2 ML VIAL IVP PRN (19:06)
--- NOTE | 2023-01-27 19:58 | P.PN ---
Progress Note - Text Progress Note Date: 01/27/23 patient is 68-year-old gentleman with past medical history significant for atrial fibrillation, diabetes mellitus type 2, hyperlipidemia, hypertension, obstructive sleep apnea, basal cell carcinoma, depression Who presented to The hospital because of hallucinations. Patient was recently in the hospital because of encephalopathy and right lower extremity cellulitis, was discharged on doxycycline for 10 days. Patient was discharged to senior living facility, he has been intermittently confused over there. Patient has been complaining of hallucinations mostly visual, stating that he was seeing rabbits in his room. No complaint of fever or chills. No complaints of nausea or vomiting. Redness of right lower extremity has improved. Because of this increasing episodes of confusion, patient was brought to the ER Initial lab work in the ER showed WBC 7.1, hemoglobin 11.9, sodium 137, potassium 4.3, BUN 50, creatinine 1.3. CT brain showed atrophy, minimal mucosal thickening within the anterior left right ethmoid air cells, no evidence of acute hemorrhage or stroke Chest x-ray negative for any acute cardiac process Patient was admitted to medicine service 01/21. Patient seen and examined. Confusion has improved. Still complaining of weakness 01/22/2023 Patient is seen and evaluated in follow-up this morning and has been brought to the ICU for increased confusion patient being obtunded and patient is currently on BiPAP with multiple medical consultations following. Patient is not tolerating oral intake and now waking up enough and is currently nothing by mouth. Patient is maintained on Precedex drip as nursing staff reports he was extremely restless while continuing to be obtunded. Continued on IV cefazolin with infectious disease following for right lower extremity cellulitis. Pulmonary is now following and patient is maintained on BiPAP with an FiO2 of 30% and will continue. Titrate as tolerated. Recommend follow-up labs 01/23/2023 Patient is seen and evaluated and continues to be in the ICU on BiPAP overnight although transition to 3 L nasal cannula much more awake and alert today. Patient able to tolerate some oral intake and take medications. Patient is lethargic and report still feeling weak. PT/OT therapy consulted. Patient's blood sugars were lower due to nothing by mouth status yesterday although is tolerating diet will resume long-acting and continue sliding scale for now. Patient is alert and oriented 2-3 not reporting any signs of hallucinations. Patient medications adjusted and patient has been weaned off Precedex. Patient continues on local wound care and IV cefazolin with infectious disease following for right lower extremity cellulitis. Patient will continue on oral Keflex on discharge. Family is looking into other possible ECF locations and he was most recently currently staying at [facility]. Patient's family also concerned he has been having steady decline lately and becomes more confused at night. Patient being monitored in the ICU overnight with possible transfer out. Will discuss with case management and other consultations about possible discharge planning. 01/24/2023 Patient is seen and evaluated in follow-up in the ICU maintained on 3 L via nasal cannula and continues to use BiPAP at night. Patient was instructed to use a CPAP machine in the outpatient setting although reports has not used in years and couldn't tolerate the mask. Per nursing staff patient tolerated BiPAP and is currently maintained on 3 L. Patient with some overload and pulmonary hypertension noted on echo, creping machine operator started patient on IV Lasix although blood pressures were marginal and urine output was minimal and so a.m. dose of Lasix was held. Kidney functions also elevated this morning. Patient denies worsening shortness of breath. Patient denies chest pain or palpitations. Patient reports not much of an appetite but is eating. Blood sugars have been elevated and will adjust medications accordingly. Patient was able to tolerate oral pills as well again today. Patient with significant weakness would like to go back to where he was at [facility] and social work is following. Per social work family was attempting to look into other facilities although patient does not want to. Currently working on insurance authorization. Pulmonary creping machine operator recommends ICU monitoring overnight with possible transfer to [facility] tomorrow and no plans for discharge as of yet. Patient is also continued on IV cefazolin with infectious disease following for right lower extremity cellulitis. 01/25/2023 Patient is seen and evaluated in the intensive care unit has been down graded to medical surgical pending a bed. Patient continues on 3L nasal cannula with BiPAP at night. Patient continues on IV lasix Q12. Urine output has improved. Blood pressure has improved, patient continues with significant pitting lower extremity edema. Creatinine has improved to 1.15 today, sodium improved to 136. Patient continues to report significant weakness and has been unable to feed himself and needs encouragement to participate in care. Patient remains on IV cefazolin for the lower extremity cellulitis on the right patient also has a wound to the right ankle patient has local wound care in place and also a wound culture has been ordered today. Local wound care with aquacel silver kerlex and whitney wrap to change daily. ID is following closely. 01/26/2023 Patient is evaluated on the medical floor has been moved out of the ICU. Mentation has improved patient is currently alert x3. Complaining of left shoulder pain and limited mobility unable to elevate past midline states it was xrayed in the past with no fracture. Patient continues on IV cefepime and local wound care with aquacel kerlex and whitney wrap. Would recommending to WHITNEY wrap bilateral lower extremity patient does continue with significant lower extremity edema. Scheduled insulin has been added and if blood glucose remains elevated in the AM would recommending adding AM levemir in addition to the 30 units of levemir at HS. Continues on IV lasix 40 mg Q12 hr at this time and has indwelling catheter in place, urine output 6L in the last 24 hours. Afebrile, heart rate 66, blood pressure 146/56, 96% 3L nasal cannula. 01/27/2023: Resting in bed. Constipation. Dulcolax ordered. Eating well. Dressing on the right leg. Wound cultures pending. Discussed with ID. Hold discharge still cultures available. On IV cefepime. Active Medications Acetaminophen (Acetaminophen Tab 500 Mg Tab) 500 mg PO Q6HR PRN PRN Reason: Pain Last Admin: 01/24/23 16:37 Dose: 500 mg Albuterol/Ipratropium (Ipratropium-Albuterol 3 Ml Neb) 3 ml INHALATION RT-QID [facility] Last Admin: 01/27/23 19:47 Dose: 3 ml Apixaban (Apixaban 5 Mg Tab) 5 mg PO BID [facility]; Protocol Last Admin: 01/27/23 07:52 Dose: 5 mg Atorvastatin Calcium (Atorvastatin 10 Mg Tab) 10 mg PO DAILY [facility] Last Admin: 01/27/23 07:51 Dose: 10 mg Bisacodyl (Bisacodyl 10 Mg Supp) 10 mg RECTAL DAILY PRN PRN Reason: Constipation Carvedilol (Carvedilol 12.5 Mg Tab) 25 mg PO BID-W/MEALS [facility] Last Admin: 01/27/23 17:28 Dose: 25 mg Cholecalciferol (Cholecalciferol 25 Mcg (1000 Iu) Tablet) 25 mcg PO DAILY [facility] Last Admin: 01/27/23 07:52 Dose: 25 mcg Cyanocobalamin (Cyanocobalamin 500 Mcg Tab) 500 mcg PO DAILY [facility] Last Admin: 01/27/23 07:52 Dose: 500 mcg Dextrose/Water (Dextrose 50% Syringe 50 Ml) 25 ml IVP PER PROTOCOL PRN; Protocol PRN Reason: Hypoglycemia Last Admin: 01/23/23 05:32 Dose: 25 ml Dextrose/Water (Dextrose 50% Syringe 50 Ml) 50 ml IVP PER PROTOCOL PRN; Protocol PRN Reason: Hypoglycemia Docusate Sodium (Docusate 100 Mg Cap) 100 mg PO BID [facility] Last Admin: 01/27/23 07:52 Dose: 100 mg Ferrous Sulfate (Ferrous Sulfate 325 Mg Tab) 325 mg PO [facility] Last Admin: 01/26/23 20:45 Dose: 325 mg Fluoxetine HCl (Fluoxetine Hcl 20 Mg Cap) 20 mg PO DAILY [facility] Last Admin: 01/27/23 07:52 Dose: 20 mg Furosemide (Furosemide 10 Mg/Ml 4 Ml Vial) 40 mg IV Q12HR [facility] Last Admin: 01/27/23 09:56 Dose: 40 mg Cefepime HCl 2 gm/ Sodium (Chloride) 100 mls @ 25 mls/hr IVPB Q8HR [facility]; Protocol Last Admin: 01/27/23 16:48 Dose: 25 mls/hr Insulin Aspart (Insulin Aspart (Novolog) 100 Unit/Ml Vial) 0 unit SQ ACHS [facility]; Protocol Last Admin: 01/27/23 17:28 Dose: 9 unit Insulin Aspart (Insulin Aspart (Novolog) 100 Unit/Ml Vial) 4 unit SQ AC-TID [facility] Last Admin: 01/27/23 17:29 Dose: 4 unit Insulin Detemir (Insulin Detemir (Levemir) 100 Unit/Ml Syr) 30 unit SQ HS [facility] Last Admin: 01/26/23 20:47 Dose: 30 unit Miscellaneous Information (Potassium Replacement Protocol 1 Each Misc) 1 each MISCELLANE DAILY PRN; Protocol PRN Reason: Per Protocol Naloxone HCl (Naloxone 0.4 Mg/Ml 1 Ml Vial) 0.2 mg IV Q2M PRN PRN Reason: Opioid Reversal Olanzapine (Olanzapine 2.5 Mg Tab) 2.5 mg PO [facility] Last Admin: 01/26/23 20:45 Dose: 2.5 mg Olanzapine (Olanzapine 2.5 Mg Tab) 2.5 mg PO DAILY PRN PRN Reason: Psychosis Last Admin: 01/22/23 23:58 Dose: 2.5 mg Ondansetron HCl (Ondansetron 4 Mg/2 Ml Vial) 4 mg IVP Q6HR PRN PRN Reason: Nausea And Vomiting Last Admin: 01/27/23 19:06 Dose: 4 mg Tamsulosin HCl (Tamsulosin 0.4 Mg Cap.Er.24h) 0.4 mg PO DAILY [facility] Last Admin: 01/27/23 07:52 Dose: 0.4 mg Tramadol HCl (Tramadol 50 Mg Tab) 50 mg PO BID PRN PRN Reason: Pain Last Admin: 01/27/23 16:54 Dose: 50 mg On examination: VITAL SIGNS: [98.1, 63, 16, 143/65, 97% on 3 L] GENERAL APPEARANCE: BMI 44.8, laying in bed awake not in distress. HEENT: Normal external appearance of nose and ear. Oral cavity normal EYES: Pupils equal. Conjunctiva normal. NECK: JVD unable to assess. Mass not palpable. RESPIRATORY: Respiratory effort normal. Lungs breath sounds CARDIOVASCULAR: First and second sounds normal. No edema. ABDOMEN: Soft. Liver and spleen not palpable. No tenderness. No mass palpable. PSYCHIATRY: Answering questions appropriately EXTREMITIES: Right lower extremity wound with dressing. INVESTIGATIONS, reviewed in the clinical context: January 27: White count 6.6 hemoglobin 9.9 platelets 274 potassium 5.2 BUN 48.1 creatinine 1.2 Leg wound culture: Gram-negative bacilli Assessment: Medical deconditioning requiring assistance for feeding and all ADLs currently a max assist Acute delirium with hallucinations, possibly medication effect, toxic/metabolic encephalopathy,: Improved Acute on chronic hypoxic respiratory failure secondary to sleep apnea and hypercapnia, currently on 3 L via nasal cannula. Using BiPAP night. Right lower extremity cellulitis and chronic venous stasis ulcer Paroxysmal atrial fibrillation currently normal sinus rhythm Insulin-dependent diabetes mellitus, uncontrolled with hypoglycemia secondary to nothing by mouth status, patient now with hyperglycemia resumed on insulin Left shoulder pain and limited range of motion Hypertension Hyperlipidemia Morbid obesity with BMI of 43.4 sleep apnea and does not use CPAP as he cannot tolerate the mask Plan: Discussed with ID. Await wound culture sensitivities. Continue her medications IV cefepime. Changed to oral Lasix and fluid restriction.
[2023-01-27 20:27] LABS: Glucose,Whole Blood 223 mg/dL (70-110)
[2023-01-27] MEDS: INSULIN DETEMIR (LEVEMIR) 100 UNIT/ML SYR SQ SCH (20:55)
[2023-01-27] MEDS: FERROUS SULFATE 325 MG TAB PO SCH (23:32)
[2023-01-27] MEDS: OLANZapine 2.5 MG TAB PO SCH (23:33)
[2023-01-28] MEDS: SCOPOLAMINE 1 MG/72 HR PATCH TRANSDERM ONE ×2 (03:48→04:58)
[2023-01-28] MEDS: ONDANSETRON 4 MG/2 ML VIAL IVP PRN ×2 (04:54→12:18)
[2023-01-28 07:12] LABS: Glucose,Whole Blood 267 mg/dL (70-110)
[2023-01-28] MEDS: INSULIN ASPART (NovoLOG) 100 UNIT/ML VIAL SQ SCH ×7 (07:54→21:38)
[2023-01-28] MEDS: IPRATROPIUM-ALBUTEROL 3 ML NEB INHALATION SCH ×4 (08:23→20:21)
[2023-01-28] MEDS: DOCUSATE 100 MG CAP PO SCH ×2 (09:33→21:37)
[2023-01-28] MEDS: APIXABAN 5 MG TAB PO SCH ×2 (09:53→21:37)
[2023-01-28] MEDS: FUROSEMIDE 40 MG TAB PO SCH (09:54)
[2023-01-28] MEDS: carvediloL 12.5 MG TAB PO SCH ×2 (09:54→18:34)
[2023-01-28] MEDS: ATORVASTATIN 10 MG TAB PO SCH (09:54)
[2023-01-28] MEDS: TAMSULOSIN 0.4 MG CAP.ER.24H PO SCH (09:55)
[2023-01-28] MEDS: CEFEPIME 2 GM in SODIUM CHLORIDE 0.9% 100 ML IVPB SCH ×3 (09:55→23:15)
--- NOTE | 2023-01-28 12:03 | P.PN ---
Subjective Patient is seen for follow-up for acute kidney injury. Renal function has improved. Patient is currently being diuresed. Serum creatinine 1.2 yesterday. Complaining of nausea and vomiting today Urine output at 3.0 L for 24 hours. Objective - Vital Signs Vital signs: Vital Signs Temp 97.9 F 01/28/23 07:15 Pulse 84 01/28/23 07:15 Resp 18 01/28/23 07:15 BP 146/71 01/28/23 07:15 Pulse Ox 94 L 01/28/23 08:23 FiO2 30 01/27/23 04:11 Intake & Output 01/27/23 01/28/23 01/28/23 18:59 06:59 18:59 Output Total 2450 600 Balance -2450 -600 Output: Urine 2450 600 Other: Voiding Method Indwelling Catheter Urinal Urinal # Voids 1 # Bowel Movements 1 1 - Exam Patient is awake, comfortable, no acute distress Examination of the heart S1 and S2 Examination of the lungs decreased breath sounds at the bases abdomen is soft obese nontender Examination lower extremity shows 1+ edema left leg, right leg is wrapped 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 Acute kidney injury, currently improved. Nonoliguric. Lasix switched to oral. Blood pressure is not low. UA is completely benign on 01/19/2023. 2. History of acute kidney injury during admission in November 2022 secondary to ATN from hypotension, infection and NSAIDs. Serum creatinine had improved to 1.0 mg/dL from peak of 3.5 during last admission. 3. Mental status changes secondary to hypercapnia him a currently improved 4. Acute on chronic hypercapnic respiratory failure, improved 5. Right Lower extremity cellulitis maintained on antibiotics and chronic ulcer right calf Plan: Continue with oral Lasix Possible KUB if nausea vomiting persists Avoid hypotension Continue to avoid nephrotoxic agents. Repeat labs in a.m.
--- NOTE | 2023-01-28 12:13 | P.PN ---
Subjective Progress Note Date: 01/28/23 This is a 68-year-old white male with history of multiple medical problems, patient is known to have chronic atrial fibrillation, type 2 diabetes, obesity, patient was seen by us back on 12/13/2022, at that time the patient had acute hypercapnia with morbid obesity and obstructive sleep apnea, patient was placed on BiPAP at the time with IPAP of 12 EPAP of 6, and cut down his FiO2 to 30%. His admission back then was mostly related to cellulitis of lower extremities with acute kidney injury, hypotension, treated back then with antibiotics, he was anticoagulated with eliquis, and he was seen by many consultants including nephrology for his renal failure. This time on 01/14/2023, patient apparently h ad a very similar presentation, he was sent from the [facility] mostly because of altered mental status, confusion, hallucinations, patient was claiming that he was seeing rabbits in his room. Admitted with acute delirium, and he was seen by psychiatry on consultation, nonetheless the patient continues to be restless agitated, and he was refusing to place his BiPAP on his face. I was notified about this patient, recommended immediate transfer to the ICU, placed on Precedex. And one hour later ABG was done while the patient was on BiPAP, showed a pO2 of 118 pCO2 of 45 and pH of 7.38. His pCO2 on admission was in the 60s. Patient called down nicely, and he seems to be responding well to Precedex and tolerating BiPAP quite nicely. He is on IPAP 14 EPAP of 6, and FiO2 of 30% could not get much history out of the patient as he seems to be agitated and restless upon arrival to the ICU Reevaluated today on , patient remains in the ICU, remains on BiPAP 14/6/30%, remains on Precedex at 0.12 mcg/kg/h, weaning to Precedex and we will likely discontinue this morning. Patient remains calm, does not seem to be in any distress, his mental status is improving, seems to be more oriented and more appropriate today, although he is a bit slow. Labs today showed the incentive 8 hemoglobin 11., electrolytes and renal profile are normal, chest x-ray showed no evidence of active disease. Reevaluated today on 01/24/2023, patient remains in the ICU, doing fairly well, last minute he was on BiPAP at 14/6/30%, he is off Precedex, patient is alert oriented, not confused anymore, and he is not in any distress. He seems to be very appropriate, continues to have significant swelling in the lower extremities, yesterday he received diuretics, his creatinine is up to 1.40 today, hence we will hold on diuresis for now. Chest x-ray done yesterday showed no evidence of acute cardiopulmonary process. Except minimal prominence of the pulmonary vasculature patient is still receiving antibiotics for his bilateral lower extremities wounds, I was able to examine the lower extremities today, and there seems to be no evidence of necrosis, there is mostly sloughing of the skin and erythema. Patient was reevaluated today on 01/25/2023, remains in the ICU, however the patient is doing much better today compared to the last few days. He is on room air, however he is using his BiPAP at night. Remains on Lasix at 40 mg IV push every 12 hours remains on cefazolin. Today the patient feels extremely sore, and feels stiff. Hence I'm recommending a dose of Decadron. Patient continues to have urine output which is excellent, does not seem to be in any distress for of his pulmonary status is concerned, hence I plan to transfer the patient out of the ICU to regular medical floor. WBC count is 7 hemoglobin 10.6 electrolytes are normal BUN is 48 creatinine 1.15, significantly better compared to creatinine yesterday of 1.40. The patient is seen today 01/26/2023 in follow-up on the regular medical floor. He is currently awake and alert, oriented 3. Maintaining O2 saturations in the 90s on 3 L/m per nasal cannula. He did utilize BiPAP last night 14/6 and 30% FiO2. Right leg lower extremity wound positive for gram-negative bacilli. Blood sugar 242. Remains on cefazolin. Continued on DuoNeb inhalations, IV diuretics. Currently in a -4.5 L balance. Anticoagulated with Eliquis. The patient is seen today 01/27/2023 in follow-up on the regular medical floor. He is sitting up in bed. Awake and alert in no acute distress. Maintaining O2 saturations in the 90s on 3 L/m per nasal cannula. He did utilize BiPAP last evening 14/6 and 30% FiO2. Right lower extremity wound positive for gram- negative bacilli. White count 6.6. Hemoglobin 9.9. Platelets 274. Blood glucose 287. Magnesium 2.1. He remains in a -3.8 L balance. Continued on DuoNeb inhalations. He remains on cefepime. Remains on IV diuretics. Anticoagulated with Eliquis. The patient is seen today 01/28/2023 in follow-up on the regular medical floor. He is awake and alert in no acute distress. Denies any worsening shortness of breath, cough or congestion. Maintaining O2 saturations in the 90s on 1 L/m per nasal cannula. He is having some issues with nausea and vomiting last night and this morning. Right leg wound cultures positive for gram-negative bacilli. He is currently on cefepime. ID services are on the case. Blood sugar 267. He has been converted to oral diuretics. Currently in a -3 L balance. Objective - Vital Signs Vital signs: Vital Signs Temp 97.9 F 01/28/23 07:15 Pulse 84 01/28/23 07:15 Resp 18 01/28/23 07:15 BP 146/71 01/28/23 07:15 Pulse Ox 94 L 01/28/23 08:23 FiO2 30 01/27/23 04:11 Intake & Output 01/27/23 01/28/23 01/28/23 18:59 06:59 18:59 Output Total 2450 600 Balance -2450 -600 Output: Urine 2450 600 Other: Voiding Method Indwelling Catheter Urinal Urinal # Voids 1 # Bowel Movements 1 1 - Exam GENERAL: Revealed an alert, pleasant 68-year-old male, on 1 L nasal cannula. Head: Atraumatic, normocephalic. HEENT: Short obese neck. No neck masses. Pupils are round and equally reacting to light. EOMI. No scleral icterus. No conjunctival pallor. CARDIOVASCULAR: Distant S1 and S2, no S3 gallop, positive murmur. PULMONARY: Clear throughout no rhonchi and no wheezes ABDOMEN: Obese, Soft, nontender, nondistended, normoactive bowel sounds. No palpable organomegaly. MUSCULOSKELETAL: Patient seems to have limitation in range of motion especially his shoulders and elbows. Joints feel stiff EXTREMITIES: Chronic venous stasis changes and cellulitis noted in both lower extremities NEUROLOGICAL: Awake, alert oriented 3, no focal deficit SKIN: Did not evaluate his ulcerations of lower extremities today, wrapped with sterile dressing. - Labs CBC & Chem 7: 01/27/23 05:32 01/27/23 05:32 Labs: Abnormal Lab Results - Last 24 Hours (Table) 01/27/23 01/27/23 01/27/23 Range/Units 12:13 17:14 20:25 POC Glucose (mg/dL) 271 H 265 H 223 H (70-110) mg/dL 01/28/23 Range/Units 07:11 POC Glucose (mg/dL) 267 H (70-110) mg/dL Microbiology - Last 24 Hours (Table) 01/24/23 10:55 Gram Stain - Preliminary Leg - Right Wound Culture - Preliminary Gram Neg Bacilli Assessment and Plan Assessment: Acute on chronic hypercapnic respiratory failure secondary to obstructive sleep apnea Acute metabolic encephalopathy secondary to hypercapnia, resolved. Alert and oriented 3 Chronic lower extremity cellulitis/right leg cellulitis, possible sepsis and cultures with gram-negative bacilli. On cefepime Chronic atrial fibrillation, anticoagulated with Eliquis Severe aortic stenosis Moderate pulmonary hypertension Type 2 diabetes with possible diabetic nephropathy Benign essential hypertension dyslipidemia Chronic ulcer of right calf Morbid obesity BMI of over 40 Plan: The patient was seen and evaluated Medications and labs reviewed Continue bronchodilators Antibiotics per ID services Anticoagulated with Eliquis Plan is for subacute rehabilitation at [facility] I have personally seen and examined the patient, performed the documentation and the assessment and plan as written. Number of minutes spent on the visit: 10.
[2023-01-28 12:36] LABS: Glucose,Whole Blood 241 mg/dL (70-110)
[2023-01-28] MEDS: CHOLECALCIFEROL 25 MCG (1000 IU) TABLET PO SCH (14:00)
[2023-01-28] MEDS: CYANOCOBALAMIN 500 MCG TAB PO SCH (14:00)
[2023-01-28] MEDS ORDERED: METOCLOPRAMIDE 5 MG/ML 2 ML VIAL IVP PRN (14:26)
[2023-01-28] MEDS: FLUoxetine HCL 20 MG CAP PO SCH (14:56)
--- NOTE | 2023-01-28 15:05 | P.PN ---
Subjective Progress Note Date: 01/27/23 Principal diagnosis: Right leg cellulitis Patient is a 76-year-old male with a past medical history significant diabetes mellitus hypertension hyperlipidemia obstructive sleep apnea atrial fibrillation with recent admission to the hospital and has been treated for right lower extremity ulceration and cellulitis , presenting back to the hospital with visual hallucination and noticed to having the ulceration to the right lower extremity concern for cellulitis. On today's evaluation that is 01/27/2023, the patient continues to be afebrile, the patient is breathing comfortably on 3 L nasal cannula oxygen, the patient denies having any chest pain occasional cough no nausea vomiting abdominal pain still complaining of constipation and denies any worsening pain to the right leg Objective - Vital Signs Vital signs: Vital Signs Temp 97.5 F L 01/27/23 07:05 Pulse 74 01/27/23 11:51 Resp 18 01/27/23 07:05 BP 148/76 01/27/23 07:05 Pulse Ox 97 01/27/23 08:45 FiO2 30 01/27/23 04:11 Intake & Output 01/26/23 01/27/23 01/27/23 18:59 06:59 18:59 Intake Total 590 Output Total 1900 2500 1650 Balance -1900 -1910 -1650 Intake: Oral 590 Output: Urine 1900 2500 1650 Other: Voiding Method Indwelling Catheter Indwelling Catheter Indwelling Catheter - Exam GENERAL DESCRIPTION: An elderly male lying in bed in no distress RESPIRATORY SYSTEM: Unlabored breathing , decreased breath sounds at bases HEART: S1 S2 regular rate and rhythm , ABDOMEN: Soft , no tenderness EXTREMITIES: Right lower extremity with multiple superficial ulceration no slough tissue surrounding redness has improved - Labs CBC & Chem 7: 01/27/23 05:32 01/27/23 05:32 Labs: Abnormal Lab Results - Last 24 Hours (Table) 01/26/23 01/26/23 01/27/23 Range/Units 17:20 20:39 05:32 RBC 3.47 L (4.40-5.60) X 10*6/uL Hgb 9.9 L (12.0-15.0) d/dL Hct 32.6 L (39.6-50.0) % MCHC 30.4 L (32.0-37.0) d/dL Eosinophils # 0.03 L (0.04-0.35) X 10*3/uL BUN (9.0-27.0) mg/dL BUN/Creatinine Ratio (12.00-20.00) Ratio Glucose (70-110) mg/dL POC Glucose (mg/dL) 308 H 320 H (70-110) mg/dL Calcium (8.7-10.3) mg/dL 01/27/23 01/27/23 01/27/23 Range/Units 05:32 07:02 12:13 RBC (4.40-5.60) X 10*6/uL Hgb (12.0-15.0) d/dL Hct (39.6-50.0) % MCHC (32.0-37.0) d/dL Eosinophils # (0.04-0.35) X 10*3/uL BUN 48.1 H (9.0-27.0) mg/dL BUN/Creatinine Ratio 40.08 H (12.00-20.00) Ratio Glucose 268 H (70-110) mg/dL POC Glucose (mg/dL) 287 H 271 H (70-110) mg/dL Calcium 8.2 L (8.7-10.3) mg/dL Assessment and Plan (1) Cellulitis of right leg Current Visit: Yes Status: Acute Code(s): L03.115 - CELLULITIS OF RIGHT LOWER LIMB SNOMED Code(s): 822907108 (2) 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 exposed Current Visit: No Status: Acute Code(s): L97.212 - NON-PRESSURE CHRONIC ULCER OF RIGHT CALF W FAT LAYER EXPOSED SNOMED Code(s): 47531385132309597 Plan: 1patient with right lower extremity venous stasis ulcer and mild cellulitis w ound base looks clean no significant slough tissue we will recommend local wound care with the dry Aquacel silver dressing and Andrea wrap for compression to keep the swelling down dressing should be changed daily as per discussion with the nursing staff 2Patient is afebrile white count has been normal right lower extremity swelling redness has decreased intensity, patient did have low cultures ob tained which are now growing gram-negative and culture have not been finalized yet, we will continue patient on cefepime while waiting for the cultures to finalize Time with Patient: Less than 30
--- NOTE | 2023-01-28 15:07 | P.PN ---
Subjective Progress Note Date: 01/28/23 Principal diagnosis: Right leg cellulitis Patient is a 76-year-old male with a past medical history significant diabetes mellitus hypertension hyperlipidemia obstructive sleep apnea atrial fibrillation with recent admission to the hospital and has been treated for right lower extremity ulceration and cellulitis , presenting back to the hospital with visual hallucination and noticed to having the ulceration to the right lower extremity concern for cellulitis. On today's evaluation that is 01/28/2023, the patient denies any fever or any chills, the patient is breathing comfortably on 3 L nasal cannula oxygen, the patient denies having any chest pain occasional cough , patient did have relief of his constipation however has been complaining of vomiting and some hematemesis morning Objective - Vital Signs Vital signs: Vital Signs Temp 97.9 F 01/28/23 07:15 Pulse 84 01/28/23 07:15 Resp 18 01/28/23 07:15 BP 146/71 01/28/23 07:15 Pulse Ox 94 L 01/28/23 08:23 FiO2 30 01/27/23 04:11 Intake & Output 01/27/23 01/28/23 01/28/23 18:59 06:59 18:59 Output Total 2450 600 Balance -2450 -600 Output: Urine 2450 600 Other: Voiding Method Indwelling Catheter Urinal Urinal # Voids 1 # Bowel Movements 1 1 - Exam GENERAL DESCRIPTION: An elderly male lying in bed in no distress RESPIRATORY SYSTEM: Unlabored breathing , decreased breath sounds at bases HEART: S1 S2 regular rate and rhythm , ABDOMEN: Soft , no tenderness EXTREMITIES: Right lower extremity with multiple superficial ulceration redness has resolved no foul-smelling drainage - Labs CBC & Chem 7: 01/27/23 05:32 01/27/23 05:32 Labs: Abnormal Lab Results - Last 24 Hours (Table) 01/27/23 01/27/23 01/27/23 Range/Units 12:13 17:14 20:25 POC Glucose (mg/dL) 271 H 265 H 223 H (70-110) mg/dL 01/28/23 Range/Units 07:11 POC Glucose (mg/dL) 267 H (70-110) mg/dL Microbiology - Last 24 Hours (Table) 01/24/23 10:55 Gram Stain - Preliminary Leg - Right Wound Culture - Preliminary Gram Neg Bacilli Assessment and Plan (1) Cellulitis of right leg Current Visit: Yes Status: Acute Code(s): L03.115 - CELLULITIS OF RIGHT LOWER LIMB SNOMED Code(s): 355678702 (2) 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 exposed Current Visit: No Status: Acute Code(s): L97.212 - NON-PRESSURE CHRONIC ULCER OF RIGHT CALF W FAT LAYER EXPOSED SNOMED Code(s): 87156320944318620 Plan: 1patient with right lower extremity venous stasis ulcer and mild cellulitis wound base looks clean no significant slough tissue we will recommend local wound care with the dry Aquacel silver dressing and Andrea wrap for compression to keep the swelling down dressing should be changed daily as per discussion with the nursing staff 2Patient is afebrile white count has been normal right lower extremity wounds are healing well and the redness has resolved culture did grew multidrug resistant gram-negative which is more likely contamination patient is on cefepime that will be transitioned to oral Keflex on discharge local care to co ntinue with the Aquacel silver dressing and Andrea wrap to discuss with the RN Time with Patient: Less than 30
[2023-01-28 17:12] LABS: Glucose,Whole Blood 242 mg/dL (70-110)
[2023-01-28 20:32] LABS: Glucose,Whole Blood 193 mg/dL (70-110)
--- NOTE | 2023-01-28 21:20 | P.PN ---
Progress Note - Text Progress Note Date: 01/28/23 patient is 68-year-old gentleman with past medical history significant for atrial fibrillation, diabetes mellitus type 2, hyperlipidemia, hypertension, obstructive sleep apnea, basal cell carcinoma, depression Who presented to The hospital because of hallucinations. Patient was recently in the hospital because of encephalopathy and right lower extremity cellulitis, was discharged on doxycycline for 10 days. Patient was discharged to long-term facility, he has been intermittently confused over there. Patient has been complaining of hallucinations mostly visual, stating that he was seeing rabbits in his room. No complaint of fever or chills. No complaints of nausea or vomiting. Redness of right lower extremity has improved. Because of this increasing episodes of confusion, patient was brought to the ER Initial lab work in the ER showed WBC 7.1, hemoglobin 11.9, sodium 137, potassium 4.3, BUN 50, creatinine 1.3. CT brain showed atrophy, minimal mucosal thickening within the anterior left right ethmoid air cells, no evidence of acute hemorrhage or stroke Chest x-ray negative for any acute cardiac process Patient was admitted to medicine service 01/21. Patient seen and examined. Confusion has improved. Still complaining of weakness 01/22/2023 Patient is seen and evaluated in follow-up this morning and has been brought to the ICU for increased confusion patient being obtunded and patient is currently on BiPAP with multiple medical consultations following. Patient is not tolerating oral intake and now waking up enough and is currently nothing by mouth. Patient is maintained on Precedex drip as nursing staff reports he was extremely restless while continuing to be obtunded. Continued on IV cefazolin with infectious disease following for right lower extremity cellulitis. Pulmonary is now following and patient is maintained on BiPAP with an FiO2 of 30% and will continue. Titrate as tolerated. Recommend follow-up labs 01/23/2023 Patient is seen and evaluated and continues to be in the ICU on BiPAP overnight although transition to 3 L nasal cannula much more awake and alert today. Patient able to tolerate some oral intake and take medications. Patient is lethargic and report still feeling weak. PT/OT therapy consulted. Patient's blood sugars were lower due to nothing by mouth status yesterday although is tolerating diet will resume long-acting and continue sliding scale for now. Patient is alert and oriented 2-3 not reporting any signs of hallucinations. Patient medications adjusted and patient has been weaned off Precedex. Patient continues on local wound care and IV cefazolin with infectious disease following for right lower extremity cellulitis. Patient will continue on oral Keflex on discharge. Family is looking into other possible ECF locations and he was most recently currently staying at [facility]. Patient's family also concerned he has been having steady decline lately and becomes more confused at night. Patient being monitored in the ICU overnight with possible transfer out. Will discuss with case management and other consultations about possible discharge planning. 01/24/2023 Patient is seen and evaluated in follow-up in the ICU maintained on 3 L via nasal cannula and continues to use BiPAP at night. Patient was instructed to use a CPAP machine in the outpatient setting although reports has not used in years and couldn't tolerate the mask. Per nursing staff patient tolerated BiPAP and is currently maintained on 3 L. Patient with some overload and pulmonary hypertension noted on echo, scientific affairs manager started patient on IV Lasix although blood pressures were marginal and urine output was minimal and so a.m. dose of Lasix was held. Kidney functions also elevated this morning. Patient denies worsening shortness of breath. Patient denies chest pain or palpitations. Patient reports not much of an appetite but is eating. Blood sugars have been elevated and will adjust medications accordingly. Patient was able to tolerate oral pills as well again today. Patient with significant weakness would like to go back to where he was at [facility] and social work is following. Per social work family was attempting to look into other facilities although patient does not want to. Currently working on insurance authorization. Pulmonary scientific affairs manager recommends ICU monitoring overnight with possible transfer to [facility] tomorrow and no plans for discharge as of yet. Patient is also continued on IV cefazolin with infectious disease following for right lower extremity cellulitis. 01/25/2023 Patient is seen and evaluated in the intensive care unit has been down graded to medical surgical pending a bed. Patient continues on 3L nasal cannula with BiPAP at night. Patient continues on IV lasix Q12. Urine output has improved. Blood pressure has improved, patient continues with significant pitting lower extremity edema. Creatinine has improved to 1.15 today, sodium improved to 136. Patient continues to report significant weakness and has been unable to feed himself and needs encouragement to participate in care. Patient remains on IV cefazolin for the lower extremity cellulitis on the right patient also has a wound to the right ankle patient has local wound care in place and also a wound culture has been ordered today. Local wound care with aquacel silver kerlex and whitney wrap to change daily. ID is following closely. 01/26/2023 Patient is evaluated on the medical floor has been moved out of the ICU. Mentation has improved patient is currently alert x3. Complaining of left shoulder pain and limited mobility unable to elevate past midline states it was xrayed in the past with no fracture. Patient continues on IV cefepime and local wound care with aquacel kerlex and whitney wrap. Would recommending to WHITNEY wrap bilateral lower extremity patient does continue with significant lower extremity edema. Scheduled insulin has been added and if blood glucose remains elevated in the AM would recommending adding AM levemir in addition to the 30 units of levemir at HS. Continues on IV lasix 40 mg Q12 hr at this time and has indwelling catheter in place, urine output 6L in the last 24 hours. Afebrile, heart rate 66, blood pressure 146/56, 96% 3L nasal cannula. 01/27/2023: Resting in bed. Constipation. Dulcolax ordered. Eating well. Dressing on the right leg. Wound cultures pending. Discussed with ID. Hold discharge still cultures available. On IV cefepime. January 28: Patient had a good bowel movement. Decreased appetite. Diet discussed. Wound culture sensitivity pending. Active Medications Acetaminophen (Acetaminophen Tab 500 Mg Tab) 500 mg PO Q6HR PRN PRN Reason: Pain Last Admin: 01/24/23 16:37 Dose: 500 mg Albuterol/Ipratropium (Ipratropium-Albuterol 3 Ml Neb) 3 ml INHALATION RT-QID [facility] Last Admin: 01/28/23 20:21 Dose: Not Given Apixaban (Apixaban 5 Mg Tab) 5 mg PO BID [facility]; Protocol Last Admin: 01/28/23 09:53 Dose: 5 mg Atorvastatin Calcium (Atorvastatin 10 Mg Tab) 10 mg PO DAILY [facility] Last Admin: 01/28/23 09:54 Dose: 10 mg Bisacodyl (Bisacodyl 10 Mg Supp) 10 mg RECTAL DAILY PRN PRN Reason: Constipation Carvedilol (Carvedilol 12.5 Mg Tab) 25 mg PO BID-W/MEALS [facility] Last Admin: 01/28/23 18:34 Dose: 25 mg Cholecalciferol (Cholecalciferol 25 Mcg (1000 Iu) Tablet) 25 mcg PO DAILY [facility] Last Admin: 01/28/23 14:00 Dose: Not Given Cyanocobalamin (Cyanocobalamin 500 Mcg Tab) 500 mcg PO DAILY [facility] Last Admin: 01/28/23 14:00 Dose: Not Given Dextrose/Water (Dextrose 50% Syringe 50 Ml) 25 ml IVP PER PROTOCOL PRN; Protocol PRN Reason: Hypoglycemia Last Admin: 01/23/23 05:32 Dose: 25 ml Dextrose/Water (Dextrose 50% Syringe 50 Ml) 50 ml IVP PER PROTOCOL PRN; Protocol PRN Reason: Hypoglycemia Docusate Sodium (Docusate 100 Mg Cap) 100 mg PO BID [facility] Last Admin: 01/28/23 09:33 Dose: Not Given Ferrous Sulfate (Ferrous Sulfate 325 Mg Tab) 325 mg PO [facility] Last Admin: 01/27/23 23:32 Dose: Not Given Fluoxetine HCl (Fluoxetine Hcl 20 Mg Cap) 20 mg PO DAILY [facility] Last Admin: 01/28/23 14:56 Dose: Not Given Furosemide (Furosemide 40 Mg Tab) 40 mg PO DAILY [facility] Last Admin: 01/28/23 09:54 Dose: 40 mg Cefepime HCl 2 gm/ Sodium (Chloride) 100 mls @ 25 mls/hr IVPB Q8HR [facility]; Pro tocol Last Admin: 01/28/23 16:50 Dose: 25 mls/hr Insulin Aspart (Insulin Aspart (Novolog) 100 Unit/Ml Vial) 0 unit SQ ACHS [facility]; Protocol Last Admin: 01/28/23 18:34 Dose: 6 unit Insulin Aspart (Insulin Aspart (Novolog) 100 Unit/Ml Vial) 4 unit SQ AC-TID [facility] Last Admin: 01/28/23 18:34 Dose: 4 unit Insulin Detemir (Insulin Detemir (Levemir) 100 Unit/Ml Syr) 30 unit SQ HS [facility] Last Admin: 01/27/23 20:55 Dose: 30 unit Metoclopramide HCl (Metoclopramide 5 Mg/Ml 2 Ml Vial) 5 mg IVP Q8HR PRN PRN Reason: Nausea And Vomiting Last Admin: 01/28/23 15:09 Dose: 5 mg Miscellaneous Information (Potassium Replacement Protocol 1 Each Misc) 1 each MISCELLANE DAILY PRN; Protocol PRN Reason: Per Protocol Naloxone HCl (Naloxone 0.4 Mg/Ml 1 Ml Vial) 0.2 mg IV Q2M PRN PRN Reason: Opioid Reversal Olanzapine (Olanzapine 2.5 Mg Tab) 2.5 mg PO HS [facility] Last Admin: 01/27/23 23:33 Dose: Not Given Olanzapine (Olanzapine 2.5 Mg Tab) 2.5 mg PO DAILY PRN PRN Reason: Psychosis Last Admin: 01/22/23 23:58 Dose: 2.5 mg Tamsulosin HCl (Tamsulosin 0.4 Mg Cap.Er.24h) 0.4 mg PO DAILY [facility] Last Admin: 01/28/23 09:55 Dose: 0.4 mg Tramadol HCl (Tramadol 50 Mg Tab) 50 mg PO BID PRN PRN Reason: Pain Last Admin: 01/27/23 16:54 Dose: 50 mg On examination: VITAL SIGNS: 97.8, 55, 18, 122/76, 100% on 1 L GENERAL APPEARANCE: BMI 44.8, laying in bed awake not in distress. HEENT: Normal external appearance of nose and ear. Oral cavity normal EYES: Pupils equal. Conjunctiva normal. NECK: JVD unable to assess. Mass not palpable. RESPIRATORY: Respiratory effort normal. Lungs breath sounds CARDIOVASCULAR: First and second sounds normal. No edema. ABDOMEN: Soft. Liver and spleen not palpable. No tenderness. No mass palpable. PSYCHIATRY: Answering questions appropriately EXTREMITIES: Right lower extremity wound with dressing. INVESTIGATIONS, reviewed in the clinical context: January 27: White count 6.6 hemoglobin 9.9 platelets 274 potassium 5.2 BUN 48.1 creatinine 1.2 Leg wound culture: Gram-negative bacilli Assessment: Medical deconditioning requiring assistance for feeding and all ADLs currently a max assist Acute delirium with hallucinations, possibly medication effect, toxic/metabolic encephalopathy,: Improved Acute on chronic hypoxic respiratory failure secondary to sleep apnea and hypercapnia, currently on 3 L via nasal cannula. Using BiPAP night. Right lower extremity cellulitis and chronic venous stasis ulcer Paroxysmal atrial fibrillation currently normal sinus rhythm Insulin-dependent diabetes mellitus, uncontrolled with hypoglycemia secondary to nothing by mouth status, patient now with hyperglycemia resumed on insulin Left shoulder pain and limited range of motion Hypertension Hyperlipidemia Morbid obesity with BMI of 43.4 sleep apnea and does not use CPAP as he cannot tolerate the mask Plan: Pending culture results. Continue current medications. Patient had a good bowel movement.
[2023-01-28] MEDS: FERROUS SULFATE 325 MG TAB PO SCH (21:37)
[2023-01-28] MEDS: OLANZapine 2.5 MG TAB PO SCH (21:37)
[2023-01-28] MEDS: INSULIN DETEMIR (LEVEMIR) 100 UNIT/ML SYR SQ SCH (21:38)
[2023-01-29 07:13] LABS: Glucose,Whole Blood 114 mg/dL (70-110)
[2023-01-29] MEDS: IPRATROPIUM-ALBUTEROL 3 ML NEB INHALATION SCH ×3 (07:25→15:07)
[2023-01-29] MEDS: INSULIN ASPART (NovoLOG) 100 UNIT/ML VIAL SQ SCH ×4 (07:45→13:04)
[2023-01-29] MEDS: CEFEPIME 2 GM in SODIUM CHLORIDE 0.9% 100 ML IVPB SCH (08:06)
[2023-01-29] MEDS: FUROSEMIDE 40 MG TAB PO SCH (08:07)
[2023-01-29] MEDS: ATORVASTATIN 10 MG TAB PO SCH (08:07)
[2023-01-29] MEDS: CYANOCOBALAMIN 500 MCG TAB PO SCH (08:07)
[2023-01-29] MEDS: TAMSULOSIN 0.4 MG CAP.ER.24H PO SCH (08:07)
[2023-01-29] MEDS: FLUoxetine HCL 20 MG CAP PO SCH (08:07)
[2023-01-29] MEDS: carvediloL 12.5 MG TAB PO SCH (08:07)
[2023-01-29] MEDS: APIXABAN 5 MG TAB PO SCH (08:07)
[2023-01-29] MEDS: CHOLECALCIFEROL 25 MCG (1000 IU) TABLET PO SCH (08:07)
[2023-01-29] MEDS: DOCUSATE 100 MG CAP PO SCH (08:07)
[2023-01-29 08:28] VITALS: RESP 14
[2023-01-29] MEDS ORDERED: CIPROFLOXACIN HCL 500 MG TAB PO SCH (09:00)
[2023-01-29] MEDS: ACETAMINOPHEN TAB 500 MG TAB PO PRN (11:40)
--- NOTE | 2023-01-29 12:09 | P.PN ---
Subjective Progress Note Date: 01/29/23 This is a 68-year-old white male with history of multiple medical problems, patient is known to have chronic atrial fibrillation, type 2 diabetes, obesity, patient was seen by us back on 12/13/2022, at that time the patient had acute hypercapnia with morbid obesity and obstructive sleep apnea, patient was placed on BiPAP at the time with IPAP of 12 EPAP of 6, and cut down his FiO2 to 30%. His admission back then was mostly related to cellulitis of lower extremities with acute kidney injury, hypotension, treated back then with antibiotics, he was anticoagulated with eliquis, and he was seen by many consultants including nephrology for his renal failure. This time on 01/14/2023, patient apparently h ad a very similar presentation, he was sent from the care home mostly because of altered mental status, confusion, hallucinations, patient was claiming that he was seeing rabbits in his room. Admitted with acute delirium, and he was seen by psychiatry on consultation, nonetheless the patient continues to be restless agitated, and he was refusing to place his BiPAP on his face. I was notified about this patient, recommended immediate transfer to the ICU, placed on Precedex. And one hour later ABG was done while the patient was on BiPAP, showed a pO2 of 118 pCO2 of 45 and pH of 7.38. His pCO2 on admission was in the 60s. Patient called down nicely, and he seems to be responding well to Precedex and tolerating BiPAP quite nicely. He is on IPAP 14 EPAP of 6, and FiO2 of 30% could not get much history out of the patient as he seems to be agitated and restless upon arrival to the ICU Reevaluated today on , patient remains in the ICU, remains on BiPAP 14/6/30%, remains on Precedex at 0.12 mcg/kg/h, weaning to Precedex and we will likely discontinue this morning. Patient remains calm, does not seem to be in any distress, his mental status is improving, seems to be more oriented and more appropriate today, although he is a bit slow. Labs today showed the incentive 8 hemoglobin 11., electrolytes and renal profile are normal, chest x-ray showed no evidence of active disease. Reevaluated today on 01/24/2023, patient remains in the ICU, doing fairly well, last minute he was on BiPAP at 14/6/30%, he is off Precedex, patient is alert oriented, not confused anymore, and he is not in any distress. He seems to be very appropriate, continues to have significant swelling in the lower extremities, yesterday he received diuretics, his creatinine is up to 1.40 today, hence we will hold on diuresis for now. Chest x-ray done yesterday showed no evidence of acute cardiopulmonary process. Except minimal prominence of the pulmonary vasculature patient is still receiving antibiotics for his bilateral lower extremities wounds, I was able to examine the lower extremities today, and there seems to be no evidence of necrosis, there is mostly sloughing of the skin and erythema. Patient was reevaluated today on 01/25/2023, remains in the ICU, however the patient is doing much better today compared to the last few days. He is on room air, however he is using his BiPAP at night. Remains on Lasix at 40 mg IV push every 12 hours remains on cefazolin. Today the patient feels extremely sore, and feels stiff. Hence I'm recommending a dose of Decadron. Patient continues to have urine output which is excellent, does not seem to be in any distress for of his pulmonary status is concerned, hence I plan to transfer the patient out of the ICU to regular medical floor. WBC count is 7 hemoglobin 10.6 electrolytes are normal BUN is 48 creatinine 1.15, significantly better compared to creatinine yesterday of 1.40. The patient is seen today 01/26/2023 in follow-up on the regular medical floor. He is currently awake and alert, oriented 3. Maintaining O2 saturations in the 90s on 3 L/m per nasal cannula. He did utilize BiPAP last night 14/6 and 30% FiO2. Right leg lower extremity wound positive for gram-negative bacilli. Blood sugar 242. Remains on cefazolin. Continued on DuoNeb inhalations, IV diuretics. Currently in a -4.5 L balance. Anticoagulated with Eliquis. The patient is seen today 01/27/2023 in follow-up on the regular medical floor. He is sitting up in bed. Awake and alert in no acute distress. Maintaining O2 saturations in the 90s on 3 L/m per nasal cannula. He did utilize BiPAP last evening 14/6 and 30% FiO2. Right lower extremity wound positive for gram- negative bacilli. White count 6.6. Hemoglobin 9.9. Platelets 274. Blood glucose 287. Magnesium 2.1. He remains in a -3.8 L balance. Continued on DuoNeb inhalations. He remains on cefepime. Remains on IV diuretics. Anticoagulated with Eliquis. The patient is seen today 01/28/2023 in follow-up on the regular medical floor. He is awake and alert in no acute distress. Denies any worsening shortness of breath, cough or congestion. Maintaining O2 saturations in the 90s on 1 L/m per nasal cannula. He is having some issues with nausea and vomiting last night and this morning. Right leg wound cultures positive for gram-negative bacilli. He is currently on cefepime. ID services are on the case. Blood sugar 267. He has been converted to oral diuretics. Currently in a -3 L balance. The patient is seen today 01/29/2023 in follow-up on the regular medical floor. He is resting comfortably in bed. Awake and alert in no acute distress. No issues with nausea or vomiting the past 24 hours. No worsening shortness of breath, cough or congestion. He has not worn the BiPAP and 2 evenings. He is maintaining O2 saturations in the 90s on 1 L/m per nasal cannula. He has 0.9 normal saying it KVO. He is continued on bronchodilators. Continued on cefepim e. Anticoagulated with Eliquis. Objective - Vital Signs Vital signs: Vital Signs Temp 98.8 F 01/29/23 07:15 Pulse 73 01/29/23 11:57 Resp 14 01/29/23 07:15 BP 129/57 01/29/23 07:15 Pulse Ox 94 L 01/29/23 07:26 FiO2 30 01/27/23 04:11 Intake & Output 01/28/23 01/29/23 01/29/23 18:59 06:59 18:59 Output Total 50 375 Balance -50 -375 Output: Urine 50 375 Other: Voiding Method Urinal Urinal # Voids 1 - Exam GENERAL: Revealed an alert, pleasant 68-year-old male patient, on 1 L nasal cannula. Resting comfortably in bed. Head: Atraumatic, normocephalic. HEENT: Short obese neck. No neck masses. Pupils are round and equally reacting to light. No scleral icterus. No conjunctival pallor. CARDIOVASCULAR: Distant S1 and S2, no S3 gallop, positive murmur. PULMONARY: Clear throughout no rhonchi and no wheezes ABDOMEN: Obese, Soft, nontender, nondistended, normoactive bowel sounds. No palpable organomegaly. MUSCULOSKELETAL: Patient seems to have limitation in range of motion especially his shoulders and elbows. Joints feel stiff EXTREMITIES: Chronic venous stasis changes and cellulitis noted in both lower extremities NEUROLOGICAL: Awake, alert oriented 3, no focal deficit SKIN: Did not evaluate his ulcerations of lower extremities today, wrapped with sterile dressing. - Labs CBC & Chem 7: 01/27/23 05:32 01/27/23 05:32 Labs: Abnormal Lab Results - Last 24 Hours (Table) 01/28/23 01/28/23 01/28/23 Range/Units 12:34 17:11 20:18 POC Glucose (mg/dL) 241 H 242 H 193 H (70-110) mg/dL 01/29/23 Range/Units 07:12 POC Glucose (mg/dL) 114 H (70-110) mg/dL Assessment and Plan Assessment: Acute on chronic hypercapnic respiratory failure secondary to obstructive sleep apnea Acute metabolic encephalopathy secondary to hypercapnia, resolved. Alert and oriented 3 Chronic lower extremity cellulitis/right leg cellulitis, possible sepsis and cultures with gram-negative bacilli. On cefepime Chronic atrial fibrillation, anticoagulated with Eliquis Severe aortic stenosis Moderate pulmonary hypertension Type 2 diabetes with possible diabetic nephropathy Benign essential hypertension dyslipidemia Chronic ulcer of right calf Morbid obesity BMI of over 40 Plan: The patient was seen and evaluated Medications reviewed Continue bronchodilators Antibiotics per ID services Anticoagulated with Eliquis Cleared for discharge from the pulmonary standpoint Plan is for subacute rehabilitation at [facility] I have personally seen and examined the patient, performed the documentation and the assessment and plan as written. Number of minutes spent on the visit: 10.
[2023-01-29 12:34] LABS: Glucose,Whole Blood 124 mg/dL (70-110)
--- NOTE | 2023-01-29 12:54 | P.PN ---
Subjective Patient is seen for follow-up for acute kidney injury. Renal function has improved. Patient is currently being diuresed. Serum creatinine 1.2 on 01/27/23 nausea is improved today Urine output at 3.0 L for 24 hours. Objective - Vital Signs Vital signs: Vital Signs Temp 98.8 F 01/29/23 07:15 Pulse 73 01/29/23 11:57 Resp 14 01/29/23 07:15 BP 129/57 01/29/23 07:15 Pulse Ox 94 L 01/29/23 07:26 FiO2 30 01/27/23 04:11 Intake & Output 01/28/23 01/29/23 01/29/23 18:59 06:59 18:59 Output Total 50 375 Balance -50 -375 Output: Urine 50 375 Other: Voiding Method Urinal Urinal # Voids 1 - Exam Patient is awake, comfortable, no acute distress Examination of the heart S1 and S2 Examination of the lungs decreased breath sounds at the bases abdomen is soft obese nontender Examination lower extremity shows 1+ edema left leg, right leg is wrapped PRINT AND PATTERN DESIGNER exam grossly intact - Labs CBC & Chem 7: 01/27/23 05:32 01/27/23 05:32 Labs: Abnormal Lab Results - Last 24 Hours (Table) 01/28/23 01/28/23 01/29/23 Range/Units 17:11 20:18 07:12 POC Glucose (mg/dL) 242 H 193 H 114 H (70-110) mg/dL 01/29/23 Range/Units 12:33 POC Glucose (mg/dL) 124 H (70-110) mg/dL Assessment and Plan Assessment: 1. Acute kidney injury, currently improved. Nonoliguric. Lasix switched to oral. Blood pressure is not low. UA is completely benign on 01/19/2023. 2. History of acute kidney injury during admission in November 2022 secondary to ATN from hypotension, infection and NSAIDs. Serum creatinine had improved to 1.0 mg/dL from peak of 3.5 during last admission. 3. Mental status changes secondary to hypercapnia him a currently improved 4. Acute on chronic hypercapnic respiratory failure, improved 5. Right Lower extremity cellulitis maintained on antibiotics and chronic ulcer right calf Plan: Continue with oral Lasix Avoid hypotension Continue to avoid nephrotoxic agents. Repeat labs
[2023-01-29 13:11] LABS: African American GFR (CKD) 80 (>60 ml/min/1.73 sqM); Blood Urea Nitrogen 40 mg/dL (9-20); Calcium 8.3 mg/dL (8.4-10.2); Chloride 97 mmol/L (98-107); Glucose 124 mg/dL (74-99); Non-African American GFR(CKD) 69 (>60 ml/min/1.73 sqM); Potassium 4.4 mmol/L (3.5-5.1); Sodium 138 mmol/L (137-145)
[2023-01-29 13:17] LABS: Anion Gap 5 mmol/L; Carbon Dioxide 36 mmol/L (22-30)
--- NOTE | 2023-01-29 13:37 | P.DS ---
Providers Date of admission: 01/18/23 22:19 Expected date of discharge: 01/29/23 Attending physician: Catalino Banks Consults: 01/19/23 09:14 Consult Physician Routine Consulting Provider: Timoteo Maria Consult Reason/Comments: Hallucinations, agitation Do you want consulting provider notified?: Yes 01/19/23 14:20 Consult Physician Routine Consulting Provider: Ander Davila Consult Reason/Comments: History of right lower extremity cellulitis, evaluate need for any Abx Do you want consulting provider notified?: Yes 01/22/23 07:58 Consult Physician Stat Consulting Provider: Georgia Montenegro Consult Reason/Comments: hypercapnic respitory failure Do you want consulting provider notified?: Already Contacted 01/24/23 16:42 Consult Physician Routine Consulting Provider: Amanda Villafuerte Consult Reason/Comments: [place], diuretics Do you want consulting provider notified?: Yes Primary care physician: Emmie Renteria [facility] Course: patient is 68-year-old gentleman with past medical history significant for atrial fibrillation, diabetes mellitus type 2, hyperlipidemia, hypertension, obstructive sleep apnea, basal cell carcinoma, depression Who presented to The hospital because of hallucinations. Patient was recently in the hospital because of encephalopathy and right lower extremity cellulitis, was discharged on doxycycline for 10 days. Patient was discharged to shelter facility, he has been intermittently confused over there. Patient has been complaining of hallucinations mostly visual, stating that he was seeing rabbits in his room. No complaint of fever or chills. No complaints of nausea or vomiting. Redness of right lower extremity has improved. Because of this increasing episodes of confusion, patient was brought to the ER Initial lab work in the ER showed WBC 7.1, hemoglobin 11.9, sodium 137, potassium 4.3, BUN 50, creatinine 1.3. CT brain showed atrophy, minimal mucosal thickening within the anterior left right ethmoid air cells, no evidence of acute hemorrhage or stroke Chest x-ray negative for any acute cardiac process Patient was admitted to medicine service 01/21. Patient seen and examined. Confusion has improved. Still complaining of weakness 01/22/2023 Patient is seen and evaluated in follow-up this morning and has been brought to the ICU for increased confusion patient being obtunded and patient is currently on BiPAP with multiple medical consultations following. Patient is not tolerating oral intake and now waking up enough and is currently nothing by mouth. Patient is maintained on Precedex drip as nursing staff reports he was extremely restless while continuing to be obtunded. Continued on IV cefazolin with infectious disease following for right lower extremity cellulitis. Pulmonary is now following and patient is maintained on BiPAP with an FiO2 of 30% and will continue. Titrate as tolerated. Recommend follow-up labs 01/23/2023 Patient is seen and evaluated and continues to be in the ICU on BiPAP overnight although transition to 3 L nasal cannula much more awake and alert today. Patient able to tolerate some oral intake and take medications. Patient is lethargic and report still feeling weak. PT/OT therapy consulted. Patient's blood sugars were lower due to nothing by mouth status yesterday although is tolerating diet will resume long-acting and continue sliding scale for now. Patient is alert and oriented 2-3 not reporting any signs of hallucinations. Patient medications adjusted and patient has been weaned off Precedex. Patient continues on local wound care and IV cefazolin with infectious disease following for right lower extremity cellulitis. Patient will continue on oral Keflex on discharge. Family is looking into other possible ECF locations and he was most recently currently staying at [facility]. Patient's family also concerned he has been having steady decline lately and becomes more confused at night. Patient being monitored in the ICU overnight with possible transfer out. Will discuss with case management and other consultations about possible discharge planning. 01/24/2023 Patient is seen and evaluated in follow-up in the ICU maintained on 3 L via nasal cannula and continues to use BiPAP at night. Patient was instructed to use a CPAP machine in the outpatient setting although reports has not used in years and couldn't tolerate the mask. Per nursing staff patient tolerated BiPAP and is currently maintained on 3 L. Patient with some overload and pulmonary hypertension noted on echo, automation machine builder started patient on IV Lasix although blood pressures were marginal and urine output was minimal and so a.m. dose of Lasix was held. Kidney functions also elevated this morning. Patient denies worsening shortness of breath. Patient denies chest pain or palpitations. Patient reports not much of an appetite but is eating. Blood sugars have been elevated and will adjust medications accordingly. Patient was able to tolerate oral pills as well again today. Patient with significant weakness would like to go back to where he was at [facility] and social work is following. Per social work family was attempting to look into other facilities although patient does not want to. Currently working on insurance authorization. Pulmonary automation machine builder recommends ICU monitoring overnight with possible transfer to [facility]. tomorrow and no plans for discharge as of yet. Patient is also continued on IV cefazolin with infectious disease following for right lower extremity cellulitis. 01/25/2023 Patient is seen and evaluated in the intensive care unit has been down graded to medical surgical pending a bed. Patient continues on 3L nasal cannula with BiPAP at night. Patient continues on IV lasix Q12. Urine output has improved. Blood pressure has improved, patient continues with significant pitting lower extremity edema. Creatinine has improved to 1.15 today, sodium improved to 136. Patient continues to report significant weakness and has been unable to feed himself and needs encouragement to participate in care. Patient remains on IV cefazolin for the lower extremity cellulitis on the right patient also has a wound to the right ankle patient has local wound care in place and also a wound culture has been ordered today. Local wound care with aquacel silver kerlex and whitney wrap to change daily. ID is following closely. 01/26/2023 Patient is evaluated on the medical floor has been moved out of the ICU. Mentation has improved patient is currently alert x3. Complaining of left s houlder pain and limited mobility unable to elevate past midline states it was xrayed in the past with no fracture. Patient continues on IV cefepime and local wound care with aquacel kerlex and whitney wrap. Would recommending to WHITNEY wrap bilateral lower extremity patient does continue with significant lower extremity edema. Scheduled insulin has been added and if blood glucose remains elevated in the AM would recommending adding AM levemir in addition to the 30 units of levemir at HS. Continues on IV lasix 40 mg Q12 hr at this time and has indwelling catheter in place, urine output 6L in the last 24 hours. Afebrile, heart rate 66, blood pressure 146/56, 96% 3L nasal cannula. 01/27/2023: Resting in bed. Constipation. Dulcolax ordered. Eating well. Dressing on the right leg. Wound cultures pending. Discussed with ID. Hold discharge still cultures available. On IV cefepime. January 28: Patient had a good bowel movement. Decreased appetite. Diet discussed. Wound culture sensitivity pending. January 29: No new issues. Did tolerate a diet. Discussed with ID. Lower extremity wound healing well. Patient to take Keflex 500 mg 3 times a day for 7 days. Discussed with case liner. Patient will be going to inpatient rehab today. Discussion and discharge planning more than 35 minutes On examination: VITAL SIGNS: 98.8, 72, 14, 129/57, 95% on 1 L GENERAL APPEARANCE: BMI 44.8, in the recliner, comfortable. HEENT: Normal external appearance of nose and ear. Oral cavity normal EYES: Pupils equal. Conjunctiva normal. NECK: JVD unable to assess. Mass not palpable. RESPIRATORY: Respiratory effort normal. Lungs breath sounds CARDIOVASCULAR: First and second sounds normal. No edema. ABDOMEN: Soft. Liver and spleen not palpable. No tenderness. No mass palpable. PSYCHIATRY: Answering questions appropriately EXTREMITIES: Right lower extremity wound with dressing. INVESTIGATIONS, reviewed in the clinical context: January 27: White count 6.6 hemoglobin 9.9 platelets 274 potassium 5.2 BUN 48.1 creatinine 1.2 Leg wound culture: Gram-negative bacilli 2-D echocardiogram: Severe aortic stenosis. Moderate pulmonary hypertension. EF 55-60%. Assessment: Medical deconditioning requiring assistance: He would take steps to transfer to a chair. Acute delirium with hallucinations, possibly medication effect, toxic/metabolic encephalopathy,: Improved Acute on chronic hypoxic respiratory failure secondary to sleep apnea and hypercapnia, currently on 1 L via nasal cannula. Using BiPAP night. Right lower extremity acute cellulitis and chronic venous stasis ulcer. Paroxysmal atrial fibrillation currently normal sinus rhythm Insulin-dependent diabetes mellitus, Acute kidney injury possibly prerenal. Creatinine improved from 1.4 down to 1.15 Secondary moderate pulmonary hypertension Left shoulder pain and limited range of motion Severe aortic stenosis: Follow-up with Dr. DENIS Houston. Hypertension Hyperlipidemia Morbid obesity with BMI of 43.4 sleep apnea and does not use CPAP as he cannot tolerate the mask Disposition: Rehab at [facility] Labs: CBC BMP: 5 days Follow-up with: Gregor Garcia [address] DENIS Houston: [address] Georgia Montenegro: [address] Emmie renteria Plan - Discharge Summary New Discharge Prescriptions: New OLANZapine [ZyPREXA] 2.5 mg PO HS tab Cephalexin [Keflex] 500 mg PO Q8HR #21 cap Ipratropium-Albuterol Nebulize [Duoneb 0.5 mg-3 mg/3 ml Soln] 3 ml INHALATION TID each Furosemide [Lasix] 40 mg PO DAILY tab INSULIN ASPART (NovoLOG) [NovoLOG (formulary)] 4 unit SQ AC-TID each Continue Apixaban [Eliquis] 5 mg PO BID FLUoxetine HCL [PROzac] 20 mg PO DAILY Atorvastatin [Lipitor] 10 mg PO DAILY tab Vitamin B-12 100mcg 1 tab PO DAILY Tamsulosin HCl [Flomax] 0.4 mg PO DAILY Acetaminophen Tab [Tylenol] 500 mg PO Q6HR PRN PRN Reason: Pain Insulin Lispro [humaLOG Kwikpen] See Protocol SQ TID-W/MEALS Insulin Glargine,Hum.rec.anlog [Lantus Solostar Pen] 30 units SQ HS Ferrous Sulfate [Iron (65 MG Elemental)] 325 mg PO HS Cholecalciferol [Vitamin D3 (25 Mcg = 1000 Iu)] 25 mcg PO DAILY carvediloL [Coreg] 25 mg PO BID Testosterone [Androgel 1.62% Gel Packet] 2 packet TOPICAL DAILY Changed traMADol HCL 50 mg PO Q6H PRN #12 tab PRN Reason: Pain Discontinued hydroCHLOROthiazide [Hydrodiuril] 25 mg PO DAILY PRN PRN Reason: HOLD FOR SBP <110 Discharge Medication List Apixaban [Eliquis] 5 mg PO BID 04/11/17 [History] Cholecalciferol [Vitamin D3 (25 Mcg = 1000 Iu)] 25 mcg PO DAILY 12/12/22 [History] FLUoxetine HCL [PROzac] 20 mg PO DAILY 12/12/22 [History] Ferrous Sulfate [Iron (65 MG Elemental)] 325 mg PO HS 12/12/22 [History] Insulin Glargine,Hum.rec.anlog [Lantus Solostar Pen] 30 units SQ HS 12/12/22 [History] Insulin Lispro [humaLOG Kwikpen] See Protocol SQ TID-W/MEALS 12/12/22 [History] Testosterone [Androgel 1.62% Gel Packet] 2 packet TOPICAL DAILY 12/12/22 [History] carvediloL [Coreg] 25 mg PO BID 12/12/22 [History] Atorvastatin [Lipitor] 10 mg PO DAILY tab 12/17/22 [Rx] Acetaminophen Tab [Tylenol] 500 mg PO Q6HR PRN 01/02/23 [History] Tamsulosin HCl [Flomax] 0.4 mg PO DAILY 01/02/23 [History] Vitamin B-12 100mcg 1 tab PO DAILY 01/02/23 [History] Cephalexin [Keflex] 500 mg PO Q8HR #21 cap 01/29/23 [Rx] Furosemide [Lasix] 40 mg PO DAILY tab 01/29/23 [Rx] INSULIN ASPART (NovoLOG) [NovoLOG (formulary)] 4 unit SQ AC-TID each 01/29/23 [Rx] Ipratropium-Albuterol Nebulize [Duoneb 0.5 mg-3 mg/3 ml Soln] 3 ml INHALATION TID each 01/29/23 [Rx] OLANZapine [ZyPREXA] 2.5 mg PO HS tab 01/29/23 [Rx] traMADol HCL 50 mg PO Q6H PRN #12 tab 01/29/23 [Rx] Follow up Appointment(s)/Referral(s): Emmie Renteria DO [Primary Care Provider] - 1-2 days Bhaskar Peace [NON-STAFF] - As Needed Carlos Garcia DO [Doctor of Osteopathic Medicine] - 1 Week
[2023-01-29 13:38] VITALS: BP 123/52; TEMP 98
[2023-01-29 15:17] VITALS: PULSE 75
[2023-01-29] MEDS ORDERED: CEFEPIME 2 GM in SODIUM CHLORIDE 0.9% 100 ML IVPB SCH (16:00)
--- NOTE | 2023-01-29 16:54 | P.PN ---
Subjective Progress Note Date: 01/29/23 Principal diagnosis: Right leg cellulitis Patient is a 76-year-old male with a past medical history significant diabetes mellitus hypertension hyperlipidemia obstructive sleep apnea atrial fibrillation with recent admission to the hospital and has been treated for right lower extremity ulceration and cellulitis , presenting back to the hospital with visual hallucination and noticed to having the ulceration to the right lower extremity concern for cellulitis. On today's evaluation that is 01/29/2023, the patient remains to be afebrile, the patient is breathing comfortably on 3 L nasal cannula oxygen, the patient denies having any chest pain occasional cough , patient denies any further nausea no vomiting no abdominal pain or diarrhea Objective - Vital Signs Vital signs: Vital Signs Temp 98.8 F 01/29/23 07:15 Pulse 73 01/29/23 11:57 Resp 14 01/29/23 07:15 BP 129/57 01/29/23 07:15 Pulse Ox 94 L 01/29/23 07:26 FiO2 30 01/27/23 04:11 Intake & Output 01/28/23 01/29/23 01/29/23 18:59 06:59 18:59 Output Total 50 375 Balance -50 -375 Output: Urine 50 375 Other: Voiding Method Urinal Urinal # Voids 1 - Exam GENERAL DESCRIPTION: An elderly male lying in bed in no distress RESPIRATORY SYSTEM: Unlabored breathing , decreased breath sounds at bases HEART: S1 S2 regular rate and rhythm , ABDOMEN: Soft , no tenderness EXTREMITIES: Right lower extremity with multiple superficial ulceration redness has resolved no foul-smelling drainage - Labs CBC & Chem 7: 01/27/23 05:32 01/29/23 12:03 Labs: Abnormal Lab Results - Last 24 Hours (Table) 01/28/23 01/28/23 01/29/23 Range/Units 17:11 20:18 07:12 POC Glucose (mg/dL) 242 H 193 H 114 H (70-110) mg/dL 01/29/23 Range/Units 12:33 POC Glucose (mg/dL) 124 H (70-110) mg/dL Assessment and Plan (1) Cellulitis of right leg Current Visit: Yes Status: Acute Code(s): L03.115 - CELLULITIS OF RIGHT LOWER LIMB SNOMED Code(s): 098277372 (2) 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 exposed Current Visit: No Status: Acute Code(s): L97.212 - NON-PRESSURE CHRONIC ULCER OF RIGHT CALF W FAT LAYER EXPOSED SNOMED Code(s): 46061747774047652 Plan: 1patient with right lower extremity venous stasis ulcer and mild cellulitis wound base looks clean no significant slough tissue we will recommend local wound care with the dry Aquacel silver dressing and Andrea wrap for compression to keep the swelling down dressing should be changed daily as per discussion with the nursing staff 2Patient is afebrile white count has been normal right lower extremity wounds are healing well and the redness has resolved culture did grew multidrug resistant gram-negative which is more likely contamination patient is on cefepime that will be transitioned to oral Keflex 7 days on discharge local care to continue with the Aquacel silver dressing and Andrea wrap to discuss with the admitting team working on discharge Time with Patient: Less than 30
== END 2023-01-29 17:23 | DRG 602 ==
LOC: EC 19:47 → 4SSUR 22:19 → 2SICU 01-22 08:15 → 5NMEDONC 01-25 21:57
PROVIDERS: ADMIT Hospitalist; ATTEND Hospitalist
DX: L03.115 Cellulitis of right lower limb (principal); G93.41 Metabolic encephalopathy; J96.22 Acute and chronic respiratory failure with hypercapnia; I48.20 Chronic atrial fibrillation, unspecified; L97.212 Non-pressure chronic ulcer of right calf with fat layer exposed; N17.9 Acute kidney failure, unspecified; Z68.41 Body mass index [BMI] 40.0-44.9, adult; L03.116 Cellulitis of left lower limb; E11.649 Type 2 diabetes mellitus with hypoglycemia without coma; E66.01 Morbid (severe) obesity due to excess calories; E78.5 Hyperlipidemia, unspecified; F32.A Depression, unspecified; G47.33 Obstructive sleep apnea (adult) (pediatric); I10 Essential (primary) hypertension; I27.20 Pulmonary hypertension, unspecified; I35.0 Nonrheumatic aortic (valve) stenosis; I48.0 Paroxysmal atrial fibrillation; I83.009 Varicose veins of unspecified lower extremity with ulcer of unspecified site; K59.00 Constipation, unspecified; M19.012 Primary osteoarthritis, left shoulder; Z79.01 Long term (current) use of anticoagulants; Z79.4 Long term (current) use of insulin; Z79.899 Other long term (current) drug therapy; Z83.3 Family history of diabetes mellitus; Z85.828 Personal history of other malignant neoplasm of skin; Z91.199 Patient's noncompliance with other medical treatment and regimen due to unspecified reason
CPT/HCPCS: 36415; 36600; 70450; 71045; 80048; 80053; 81001; 82803; 82805; 83036; 83605; 83735; 83880; 84484; 85025; 85610; 85730; 87070; 87077; 87186; 87205; 93005; 93306; 94640; 94660; 94760; 96365; 99285

== ENCOUNTER 2023-02-23 11:44 | Inpatient (IN) | payer MEDICARE ==
--- NOTE | 2023-02-23 12:34 | ED ---
General Adult HPI - General Chief complaint: Skin/Abscess/Foreign Body Stated complaint: Right leg wound Time Seen by Provider: 02/23/23 12:04 Source: patient Mode of arrival: wheelchair - History of Present Illness Initial comments: Dictation was produced using [employer] dictation software. please excuse any grammatical, word or spelling errors. Chief Complaint: 68-year-old male presents to the emergency Department with right foot 1 History of Present Illness: Patient is 68-year-old male is chronic 1 to the right lower leg. He completed a course of Keflex recently. He was admitted to subacute rehab temporarily for debility. Patient has home visiting nurse. Home visiting nurse evaluated the wound for dressing change says that the right foot seems much worse and a restricted come to the ER. Patient denies any fever or constitutional symptoms. Patient has history of neuropathy. States that he has mild palpatory pain to the right dorsum of the foot The ROS documented in this emergency department record has been reviewed and confirmed by me. Those systems with pertinent positive or negative responses have been documented in the HPI. All other systems are other negative and/or noncontributory. - Related Data Home Medications Medication Instructions Recorded Confirmed Apixaban [Eliquis] 5 mg PO BID 04/11/17 01/18/23 Cholecalciferol [Vitamin D3 (25 25 mcg PO DAILY 12/12/22 01/18/23 Mcg = 1000 Iu)] FLUoxetine HCL [PROzac] 20 mg PO DAILY 12/12/22 01/18/23 Ferrous Sulfate [Iron (65 MG 325 mg PO HS 12/12/22 01/18/23 Elemental)] Insulin Glargine,Hum.rec.anlog 30 units SQ HS 12/12/22 01/18/23 [Lantus Solostar Pen] Insulin Lispro [humaLOG Kwikpen] See Protocol SQ TID-W/MEALS 12/12/22 01/18/23 Testosterone [Androgel 1.62% Gel 2 packet TOPICAL DAILY 12/12/22 01/18/23 Packet] carvediloL [Coreg] 25 mg PO BID 12/12/22 01/18/23 Acetaminophen Tab [Tylenol] 500 mg PO Q6HR PRN 01/02/23 01/18/23 Tamsulosin HCl [Flomax] 0.4 mg PO DAILY 01/02/23 01/18/23 Vitamin B-12 100mcg 1 tab PO DAILY 01/02/23 01/18/23 Previous Rx's Medication Instructions Recorded Atorvastatin [Lipitor] 10 mg PO DAILY tab 12/17/22 Cephalexin [Keflex] 500 mg PO Q8HR #21 cap 01/29/23 Furosemide [Lasix] 40 mg PO DAILY tab 01/29/23 INSULIN ASPART (NovoLOG) [NovoLOG 4 unit SQ AC-TID each 01/29/23 (formulary)] Ipratropium-Albuterol Nebulize 3 ml INHALATION TID each 01/29/23 [Duoneb 0.5 mg-3 mg/3 ml Soln] OLANZapine [ZyPREXA] 2.5 mg PO HS tab 01/29/23 traMADol HCL 50 mg PO Q6H PRN #12 tab 01/29/23 Allergies Allergy/AdvReac Type Severity Reaction Status Date / Time famotidine [From Pepcid] Allergy Unknown Verified 02/23/23 11:58 Penicillins Allergy Rash/Hives Verified 02/23/23 11:58 hydrocodone AdvReac Hallucinati Verified 02/23/23 11:58 ons lisinopril [From Prinivil] AdvReac Cough Verified 02/23/23 11:58 Review of Systems ROS Statement: Those systems with pertinent positive or pertinent negative responses have been documented in the HPI. ROS Other: All systems not noted in ROS Statement are negative. Past Medical History Past Medical History: Atrial Fibrillation, Cancer, Diabetes Mellitus, Hyperlipidemia, Hypertension, Sleep Apnea/CPAP/BIPAP Additional Past Medical History / Comment(s): Basal cell carcinoma, Heart murmur History of Any Multi-Drug Resistant Organisms: None Reported Past Surgical History: No Surgical Hx Reported Additional Past Surgical History / Comment(s): Cataract surgery right eye Past Anesthesia/Blood Transfusion Reactions: No Reported Reaction Past Psychological History: Depression Smoking Status: Never smoker Past Alcohol Use History: None Reported Past Drug Use History: None Reported - Past Family History Mother Family Medical History: Diabetes Mellitus General Exam - General Exam Comments Initial Comments: PHYSICAL EXAM: General Impression: Alert and oriented x3, not in acute distress HEENT: Normocephalic atraumatic, extra-ocular movements intact, pupils equal and reactive to light bilaterally, mucous membranes moist. Cardiovascular: Heart regular rate and rhythm Chest: Able to complete full sentences, no retractions, no tachypnea Abdomen: abdomen soft, non-tender, non-distended, no organomegaly Musculoskeletal: Pulses present and equal in all extremities, no peripheral edema Motor: no focal deficits noted Neurological: CN II-XII grossly intact, no focal motor or sensory deficits noted Skin: Intact with no visualized rashes Right foot: 2 wounds to the dorsum of the right foot with fibrinous drainage, there is swelling and blanching erythema to the dorsum of the foot, no probing wounds, slightly malodorous Psych: Normal affect and mood Course Vital Signs 02/23/23 02/23/23 02/23/23 11:53 14:54 17:03 Temperature 98.5 F 97.7 F Pulse Rate 61 68 66 Respiratory 18 17 18 Rate Blood Pressure 99/59 113/62 109/51 O2 Sat by Pulse 97 98 98 Oximetry Medical Decision Making - Medical Decision Making Was pt. sent in by a medical professional or institution (, PA, MANAGER INFORMATION, urgent care, hospital, or fpc...) When possible be specific @ -No Did you speak to anyone other than the patient for history (EMS, parent, family, police, friend...)? What history was obtained from this source @ -No Did you review nursing and triage notes (agree or disagree)? Why? @ -I reviewed and agree with nursing and triage notes Were old charts reviewed (outside hosp., previous admission, EMS record, old EKG, old radiological studies, urgent care reports/EKG's, fpc records)? Report findings @ -No old charts were reviewed Differential Diagnosis (chest pain, altered mental status, abdominal pain women, abdominal pain men, vaginal bleeding, musculoskeletal, weakness, fever, dyspnea, syncope, headache, dizziness, GI bleed, back pain, seizure, CVA, palpatations, mental health)? @ -not applicable EKG interpreted by me (3pts min.). @ -None done X-rays interpreted by me (1pt min.). @ -Right Foot x-ray shows no osseous erosions. CT interpreted by me (1pt min.). @ -None done U/S interpreted by me (1pt. min.). @ -None done What testing was considered but not performed or refused? (CT, X-rays, U/S, labs)? Why? @ -None What meds were considered but not given or refused? Why? @ -None Did you discuss the management of the patient with other professionals (professionals i.e. , PA, MANAGER INFORMATION, lab, RT, psych nurse, social worker clinical, director agricultural services, teacher, staff weapons officer, case checker)? Give summary @ -Case discussed with Nikole Allen for admission to [facility] spitalist group Was smoking cessation discussed for >3mins.? @ -No Was critical care preformed (if so, how long)? @ -No Were there social determinants of health that impacted care today? How? (Homelessness, low income, unemployed, alcoholism, drug addiction, transportation, low edu. Level, literacy, decrease access to med. care, [place] [facility], rehab)? @ -No Was there de-escalation of care discussed even if they declined (Discuss DNR or withdrawal of care, Hospice)? DNR status @ -No What co-morbidities impacted this encounter? (DM, HTN, Smoking, COPD, CAD, Cancer, CVA, ARF, Chemo, Hep., AIDS, mental health diagnosis, sleep apnea, mo rbid obesity)? @ -None Was patient admitted / discharged? Hospital course, mention meds given and route, prescriptions, significant lab abnormalities, going to OR and other pertinent info. @ -5-year-old male presents to emergency department for worsening her right foot wound. Vital signs upon arrival are within acceptable limits. Patient not showing any signs of sepsis or septic shock. Laboratory evaluation obtained. No leukocytosis however he does have elevated acute phase reactants ESR of 62. Rest of labs unremarkable. Patient started on vancomycin will be admitted with consultation to infectious disease. Undiagnosed new problem with uncertain prognosis? @ -No Drug Therapy requiring intensive monitoring for toxicity (Heparin, Nitro, Insulin, Cardizem)? @ -No Were any procedures done? @ -No Diagnosis/symptom? Acute, or Chronic, or Acute on Chronic? Uncomplicated (without systemic symptoms) or Complicated (systemic symptoms)? @ -1. Cellulitis Side effects of treatment? @ -No Exacerbation, Progression, or Severe Exacerbation? @ -No Poses a threat to life or bodily function? How? (Chest pain, [place], [place], pneumonia, PE, COPD, DKA, ARF, appy, cholecystitis, CVA, Diverticulitis, Homicidal, Suicidal, threat to staff... and all critical care pts) @ -yes - Lab Data Result diagrams: 02/23/23 12:56 02/23/23 12:56 Lab Results 02/23/23 02/23/23 02/23/23 Range/Units 12:56 12:56 12:56 WBC 8.5 (3.8-10.6) k/uL RBC 3.85 L (4.30-5.90) m/uL Hgb 11.7 L (13.0-17.5) gm/dL Hct 35.1 L (39.0-53.0) % MCV 91.1 D (80.0-100.0) fL MCH 30.3 (25.0-35.0) pg MCHC 33.3 (31.0-37.0) g/dL RDW 15.0 (11.5-15.5) % Plt Count 247 (150-450) k/uL MPV 7.4 Neutrophils % 66 % Lymphocytes % 21 % Monocytes % 8 % Eosinophils % 4 % Basophils % 0 % Neutrophils # 5.5 (1.3-7.7) k/uL Lymphocytes # 1.8 (1.0-4.8) k/uL Monocytes # 0.7 (0-1.0) k/uL Eosinophils # 0.3 (0-0.7) k/uL Basophils # 0.0 (0-0.2) k/uL ESR 62 H (0-15) mm/hr PT 10.7 (9.0-12.0) sec INR 1.0 (<1.2) APTT 26.5 (22.0-30.0) sec Sodium 137 (137-145) mmol/L Potassium 4.1 (3.5-5.1) mmol/L Chloride 101 (98-107) mmol/L Carbon Dioxide 29 (22-30) mmol/L Anion Gap 7 mmol/L BUN 41 H (9-20) mg/dL Creatinine 1.16 (0.66-1.25) mg/dL Est GFR (CKD-EPI)AfAm 74 (>60 ml/min/1.73 sqM) Est GFR (CKD-EPI)NonAf 64 (>60 ml/min/1.73 sqM) Glucose 124 H (74-99) mg/dL Calcium 8.2 L (8.4-10.2) mg/dL C-Reactive Protein 4.2 H (<1.0) mg/dL Disposition Clinical Impression: Cellulitis Disposition: ADMITTED IP TO THIS HOSP Condition: Fair Referrals: Emmie Posadas DO [Primary Care Provider] - 1-2 days Decision Time: 17:37
[2023-02-23 13:26] LABS: Basophils % (A) 0 %; Eosinophils # (A) 0.3 k/uL (0-0.7); Eosinophils % (A) 4 %; HCT 35.1 % (39.0-53.0); HGB 11.7 gm/dL (13.0-17.5); Lymphocytes # (A) 1.8 k/uL (1.0-4.8); Lymphocytes % (A) 21 %; MCH 30.3 pg (25.0-35.0); MCHC 33.3 g/dL (31.0-37.0); Mean Platelet Volume 7.4; Monocytes # (A) 0.7 k/uL (0-1.0); Monocytes % (A) 8 %; Neutrophils # (A) 5.5 k/uL (1.3-7.7); Neutrophils % (A) 66 %; Platelet Count 247 k/uL (150-450); RBC 3.85 m/uL (4.30-5.90); WBC 8.5 k/uL (3.8-10.6)
[2023-02-23 13:32] LABS: MCV 91.1 fL (80.0-100.0)
--- NOTE | 2023-02-23 13:45 | XR ---
EXAMINATION TYPE: XR foot complete RT DATE OF EXAM: 02/23/2023 1:40 PM INDICATION: Patient age:Male; 68 years old; Reason for study: infection; PH[facility]. COMPARISON: None TECHNIQUE: The right foot was examined in the AP, oblique, and lateral projections. FINDINGS: No evidence of any acute osseous pathology. No osseous erosions. Moderate dorsal soft tissue swelling over the metatarsals. Joints are preserved. Vascular sclerosis. No radiopaque foreign body. IMPRESSION: 1. No evidence of acute fracture or osseous erosions to suggest osteomyelitis. 2. Moderate dorsal soft tissue swelling over the metatarsals.
[2023-02-23 13:48] LABS: Partial Thromboplastin Time 26.5 sec (22.0-30.0); Prothrombin Time 10.7 sec (9.0-12.0)
[2023-02-23 13:52] LABS: African American GFR (CKD) 74 (>60 ml/min/1.73 sqM); Anion Gap 7 mmol/L; Blood Urea Nitrogen 41 mg/dL (9-20); C Reactive Protein 4.2 mg/dL (<1.0); Calcium 8.2 mg/dL (8.4-10.2); Carbon Dioxide 29 mmol/L (22-30); Chloride 101 mmol/L (98-107); Glucose 124 mg/dL (74-99); Non-African American GFR(CKD) 64 (>60 ml/min/1.73 sqM); Potassium 4.1 mmol/L (3.5-5.1); Sodium 137 mmol/L (137-145)
[2023-02-23 15:56] LABS: Erythrocyte Sedimentation Rate 62 mm/hr (0-15)
[2023-02-23] MEDS ORDERED: VANCOMYCIN IV PER PHARMACY 1 EACH MISC MISCELLANE PRN (16:34)
[2023-02-23] MEDS ORDERED: VANCOMYCIN 2,000 MG in SODIUM CHLORIDE 0.9% 500 ML 500 ML IVPB ONE (17:30)
[2023-02-23] MEDS ORDERED: NALOXONE 0.4 MG/ML 1 ML VIAL IV PRN (17:37)
[2023-02-23] MEDS ORDERED: ONDANSETRON 4 MG/2 ML VIAL IVP PRN (17:37)
[2023-02-23] MEDS ORDERED: ACETAMINOPHEN TAB 325 MG TAB PO PRN (17:37)
[2023-02-23 20:28] LABS: Glucose,Whole Blood 181 mg/dL (70-110)
[2023-02-23] MEDS: SODIUM CHLORIDE 0.9% 1,000 ML IV SCH (22:04)
[2023-02-23] MEDS: HEPARIN SODIUM,PORCINE/PF 5,000 UNIT/0.5 ML SYRINGE SQ SCH ×2 (22:04→22:05)
[2023-02-23] MEDS ORDERED: DEXTROSE 50% SYRINGE 50 ML IVP PRN ×2 (23:27)
[2023-02-24] MEDS: OLANZapine 2.5 MG TAB PO SCH ×2 (00:16→22:14)
[2023-02-24] MEDS: INSULIN DETEMIR (LEVEMIR) 100 UNIT/ML SYR SQ SCH ×2 (00:16→22:14)
[2023-02-24] MEDS: APIXABAN 5 MG TAB PO SCH ×3 (00:16→22:14)
[2023-02-24 06:09] LABS: Glucose,Whole Blood 147 mg/dL (70-110)
[2023-02-24 06:35] LABS: African American GFR (CKD) >90 (>60 ml/min/1.73 sqM); Non-African American GFR(CKD) 84 (>60 ml/min/1.73 sqM)
[2023-02-24] MEDS: INSULIN ASPART (NovoLOG) 100 UNIT/ML VIAL SQ SCH ×4 (06:48→22:13)
[2023-02-24] MEDS: VANCOMYCIN 2,000 MG in SODIUM CHLORIDE 0.9% 500 ML 500 ML IVPB SCH (11:58)
[2023-02-24 12:14] LABS: Glucose,Whole Blood 169 mg/dL (70-110)
[2023-02-24] MEDS ORDERED: Acetaminophen-Codeine 300-30mg TAB PO PRN (12:51)
[2023-02-24 13:10] VITALS: BMI 40.2
[2023-02-24] MEDS ORDERED: LIDOCAINE 1% INJ 10MG/ML (20 ML MDV) SQ ONE (15:47)
[2023-02-24] MEDS ORDERED: HYDROmorphone 1 MG/ML 1 ML SYRINGE IVP STA (16:43)
--- NOTE | 2023-02-24 16:53 | P.GSCN ---
History of Present Illness History of present illness: 68-year-old gentleman patient has a long-standing history of cellulitis with venous stasis ulcer right lower extremity patient was seen by us at home and patient sent to the emergency room because of acute pain redness and cellulitis and a infected ulcer on the right lower extremity involving the dorsal suspect the foot and second toe. Patient has history of diabetes hypertension Chest is clear few crackles the lung bases Abdomen is soft nontender vascular exam is are 1+ patient has a right leg large venous ulcer lateral aspect and also venous ulcer on the dorsal suspect of the foot and second toe with mild cellulitis Plan is debridement and deep culture Past Medical History Past Medical History: Atrial Fibrillation, Cancer, Diabetes Mellitus, Hyperlipidemia, Hypertension, Sleep Apnea/CPAP/BIPAP Additional Past Medical History / Comment(s): Basal cell carcinoma, Heart murmur History of Any Multi-Drug Resistant Organisms: None Reported Past Surgical History: No Surgical Hx Reported Additional Past Surgical History / Comment(s): Cataract surgery right eye Past Anesthesia/Blood Transfusion Reactions: No Reported Reaction Past Psychological History: Depression Smoking Status: Never smoker Past Alcohol Use History: None Reported Past Drug Use History: None Reported - Past Family History Mother Family Medical History: Diabetes Mellitus Medications and Allergies Home Medications Medication Instructions Recorded Confirmed Type Apixaban [Eliquis] 5 mg PO BID 04/11/17 02/23/23 History Cholecalciferol [Vitamin D3 (25 25 mcg PO DAILY 12/12/22 02/23/23 History Mcg = 1000 Iu)] FLUoxetine HCL [PROzac] 20 mg PO DAILY 12/12/22 02/23/23 History Ferrous Sulfate [Iron (65 MG 325 mg PO HS 12/12/22 02/23/23 History Elemental)] Insulin Glargine,Hum.rec.anlog 30 units SQ HS 12/12/22 02/23/23 History [Lantus Solostar Pen] Insulin Lispro [humaLOG Kwikpen] See Protocol SQ TID-W/MEALS 12/12/22 02/23/23 History Testosterone [Androgel 1.62% Gel 2 packet TOPICAL DAILY 12/12/22 02/23/23 History Packet] carvediloL [Coreg] 25 mg PO BID 12/12/22 02/23/23 History Atorvastatin [Lipitor] 10 mg PO DAILY tab 12/17/22 02/23/23 Rx Acetaminophen Tab [Tylenol] 500 mg PO Q6HR PRN 01/02/23 02/23/23 History Tamsulosin HCl [Flomax] 0.4 mg PO DAILY 01/02/23 02/23/23 History Vitamin B-12 100mcg 1 tab PO DAILY 01/02/23 02/23/23 History Furosemide [Lasix] 40 mg PO DAILY tab 01/29/23 02/23/23 Rx OLANZapine [ZyPREXA] 2.5 mg PO HS tab 01/29/23 02/23/23 Rx traMADol HCL 50 mg PO Q6H PRN #12 tab 01/29/23 02/23/23 Rx Ipratropium-Albuterol Nebulize 3 ml INHALATION RT-TID 02/23/23 02/23/23 History [Duoneb 0.5 mg-3 mg/3 ml Soln] Allergies Allergy/AdvReac Type Severity Reaction Status Date / Time famotidine [From Pepcid] Allergy Unknown Verified 02/23/23 21:09 Penicillins Allergy Rash/Hives Verified 02/23/23 21:09 hydrocodone AdvReac Hallucinati Verified 02/23/23 21:09 ons lisinopril [From Prinivil] AdvReac Cough Verified 02/23/23 21:09 Surgical - Exam Vital Signs Temp Pulse Resp BP Pulse Ox 98.5 F 61 18 99/59 97 02/23/23 11:53 02/23/23 11:53 02/23/23 11:53 02/23/23 11:53 02/23/23 11:53 Results - Labs 02/23/23 12:56 02/24/23 05:55 Abnormal Lab Results - Last 24 Hours (Table) 02/23/23 02/24/23 02/24/23 Range/Units 20:27 05:55 06:07 POC Glucose (mg/dL) 181 H 147 H (70-110) mg/dL Hemoglobin A1c 8.6 H (<=6.0) % 02/24/23 Range/Units 12:12 POC Glucose (mg/dL) 169 H (70-110) mg/dL Hemoglobin A1c (<=6.0) % Diabetes panel 02/24/23 02/24/23 Range/Units 05:55 05:55 Creatinine 0.92 (0.66-1.25) mg/dL Hemoglobin A1c 8.6 H (<=6.0) % Pituitary panel 02/24/23 Range/Units 05:55 Creatinine 0.92 (0.66-1.25) mg/dL Adrenal panel 02/24/23 Range/Units 05:55 Creatinine 0.92 (0.66-1.25) mg/dL
--- NOTE | 2023-02-24 16:58 | P.PCN ---
Description of Procedure: Preoperative diagnoses is infected venous ulcer right lower extremity lateral aspect measurement is 7 x 5 cm, right foot dorsum aspect measurement is 1.2 cm right foot second toe 2 x 1 cm Postoperative same Procedure debridement of the wound on the lateral aspect of the right foot and dorsum spent the foot and second toe right foot was prepped and draped applied sterile manner 1% lidocaine were infiltrated using curet did the selective debridement right lower leg lateral aspect down to separate his tissue and dorsal suspect of the right foot and right second toe DVT/tissue was removed which was sent for deep culture no active bleeding was noted wound was irrigated with saline and Aquacel silver applied to the wound and pressure dressing applied plan is right leg elevation change of dressing of the right leg every 48 hours patient is under care of infectious disease for IV antibiotic
--- NOTE | 2023-02-24 17:20 | P.HPIM ---
History of Present Illness H&P Date: 02/24/23 Chief Complaint: Right leg wound Hospital course: patient is 68-year-old gentleman with past medical history significant for atrial fibrillation, diabetes mellitus type 2, hyperlipidemia, hypertension, obstructive sleep apnea, basal cell carcinoma, depression Who presented to The hospital because of hallucinations. Patient was discharged on 01/29/2023 with venous stasis ulcer of the right lower extremity. Was then seen by Dr. Roblero from [place]. Was discharged on Keflex. Patient has a nurse that visits 73 times a week. Also dozes wound care on the right lower extremity. Also gets physical therapy. Patient presented with increased redness of the right leg. Some increased swelling. Has some chronic pain. Some drainage. Has been tolerating his diet. Otherwise lives alone. Review of systems: GEN.: Tired EYES: None HEENT: None NECK: None RESPIRATORY: None CARDIOVASCULAR: None GASTROINTESTINAL: None GENITOURINARY: None MUSCULOSKELETAL: As above and joint pains LYMPHATICS: None HEMATOLOGICAL: None PSYCHIATRY: None NEUROLOGICAL: Walker Past medical history to include: Atrial fibrillation, diabetes, hypertension, hyperlipidemia, obstructive sleep apnea, basal cell carcinoma, depression, Social history: Lives alone. Does get home nurse and physical therapy. Denies smoking, alcohol. Physical examination: VITAL SIGNS: 97.7, 68, 16, 133/71, 96% room air GENERAL: BMI 40.2, sitting in bed, awake, tired. EYES: Pupils equal. Conjunctiva normal. HEENT: External appearance of nose and ears normal, oral cavity grossly normal. NECK: JVD not raised; masses not palpable. HEART: First and second heart sounds are normal; no edema. LUNGS: Respiratory rate normal; clear to auscultation. ABDOMEN: Soft, distended, nontender, liver spleen not palpable, no masses palpable. PSYCH: Alert and oriented x3; mood and affect normal. MUSCULOSKELETAL:No Clubbing/cyanosis;muscles-grossly intact NEUROLOGICAL: Cranial nerves grossly intact; no facial asymmetry, power and sensation grossly intact. LYMPHATICS: No lymph nodes palpable in the axilla and neck EXTREMITIES: Venous ulcer right lower extremity. Superficial. Infected appearing. Surrounding cellulitis. Right foot is swollen. Tender. Increased local temperature. INVESTIGATIONS, reviewed in the clinical context: White count 8.5 hemoglobin 11.7 platelets 247 sodium 137 potassium 4.1 BUN 41 and creatinine 1.16 CRP 4.2 X-ray right foot: No evidence of fracture or any evidence of any osseous erosions. Soft tissue swelling. Previous studies 2-D echocardiogram [December 2022]: Severe aortic stenosis. Moderate pulmonary hypertension. EF 55-60%. Assessment and plan: -Acute on chronic right lower extremity cellulitis, with venous ulcer with worsening infection IV vancomycin. Consultation to ID and vascular surgery.. Local wound care. -Chronic gait dysfunction. Multiple medical problems. Uses walker at baseline -Paroxysmal atrial fibrillation currently normal sinus rhythm Coreg. Eliquis -Diabetes mellitus type 2 , chronically on insulin Follow Accu-Cheks -Secondary moderate pulmonary hypertension -Severe aortic stenosis: Does follow with cardiology -Essential Hypertension Cutback Coreg to 6.25 by mouth twice a day. -Hyperlipidemia Lipitor 10 mg daily -Morbid obesity with BMI of 40.2 Weight loss measures -Obstructive sleep apnea and does not use CPAP as he cannot tolerate the mask -Depression Zyprexa. Prozac. -Full code IV vancomycin. Resume her medications. Cutback dose of Coreg to 6.25 twice a day. Discussed with patient. Past Medical History Past Medical History: Atrial Fibrillation, Cancer, Diabetes Mellitus, Hyperlipidemia, Hypertension, Sleep Apnea/CPAP/BIPAP Additional Past Medical History / Comment(s): Basal cell carcinoma, Heart murmur History of Any Multi-Drug Resistant Organisms: None Reported Past Surgical History: No Surgical Hx Reported Additional Past Surgical History / Comment(s): Cataract surgery right eye Past Anesthesia/Blood Transfusion Reactions: No Reported Reaction Past Psychological History: Depression Smoking Status: Never smoker Past Alcohol Use History: None Reported Past Drug Use History: None Reported - Past Family History Mother Family Medical History: Diabetes Mellitus Medications and Allergies Home Medications Medication Instructions Recorded Confirmed Type Apixaban [Eliquis] 5 mg PO BID 04/11/17 02/23/23 History Cholecalciferol [Vitamin D3 (25 25 mcg PO DAILY 12/12/22 02/23/23 History Mcg = 1000 Iu)] FLUoxetine HCL [PROzac] 20 mg PO DAILY 12/12/22 02/23/23 History Ferrous Sulfate [Iron (65 MG 325 mg PO HS 12/12/22 02/23/23 History Elemental)] Insulin Glargine,Hum.rec.anlog 30 units SQ HS 12/12/22 02/23/23 History [Lantus Solostar Pen] Insulin Lispro [humaLOG Kwikpen] See Protocol SQ TID-W/MEALS 12/12/22 02/23/23 History Testosterone [Androgel 1.62% Gel 2 packet TOPICAL DAILY 12/12/22 02/23/23 History Packet] carvediloL [Coreg] 25 mg PO BID 12/12/22 02/23/23 History Atorvastatin [Lipitor] 10 mg PO DAILY tab 12/17/22 02/23/23 Rx Acetaminophen Tab [Tylenol] 500 mg PO Q6HR PRN 01/02/23 02/23/23 History Tamsulosin HCl [Flomax] 0.4 mg PO DAILY 01/02/23 02/23/23 History Vitamin B-12 100mcg 1 tab PO DAILY 01/02/23 02/23/23 History Furosemide [Lasix] 40 mg PO DAILY tab 01/29/23 02/23/23 Rx OLANZapine [ZyPREXA] 2.5 mg PO HS tab 01/29/23 02/23/23 Rx traMADol HCL 50 mg PO Q6H PRN #12 tab 01/29/23 02/23/23 Rx Ipratropium-Albuterol Nebulize 3 ml INHALATION RT-TID 02/23/23 02/23/23 History [Duoneb 0.5 mg-3 mg/3 ml Soln] Allergies Allergy/AdvReac Type Severity Reaction Status Date / Time famotidine [From Pepcid] Allergy Unknown Verified 02/23/23 21:09 Penicillins Allergy Rash/Hives Verified 02/23/23 21:09 hydrocodone AdvReac Hallucinati Verified 02/23/23 21:09 ons lisinopril [From Prinivil] AdvReac Cough Verified 02/23/23 21:09 Physical Exam Vitals: Vital Signs Temp Pulse Pulse Resp BP BP Pulse Ox 02/24/23 02:55 98.3 F 79 19 161/67 98 02/23/23 21:45 66 18 02/23/23 20:10 97.5 F L 71 18 118/66 97 02/23/23 19:35 66 18 114/57 99 02/23/23 19:16 97.6 F 62 17 93/54 97 02/23/23 17:03 66 18 109/51 98 02/23/23 14:54 97.7 F 68 17 113/62 98 02/23/23 11:53 98.5 F 61 18 99/59 97 Intake and Output 02/23/23 02/24/23 02/24/23 22:59 06:59 14:59 Other: Voiding Method Toilet # Voids 1 1 Weight 138.346 kg Results CBC & Chem 7: 02/23/23 12:56 02/24/23 05:55 Labs: Abnormal Lab Results - Last 24 Hours (Table) 02/23/23 02/23/23 02/23/23 Range/Units 12:56 12:56 20:27 RBC 3.85 L (4.30-5.90) m/uL Hgb 11.7 L (13.0-17.5) gm/dL Hct 35.1 L (39.0-53.0) % ESR 62 H (0-15) mm/hr BUN 41 H (9-20) mg/dL Glucose 124 H (74-99) mg/dL POC Glucose (mg/dL) 181 H (70-110) mg/dL Hemoglobin A1c (<=6.0) % Calcium 8.2 L (8.4-10.2) mg/dL C-Reactive Protein 4.2 H (<1.0) mg/dL 02/24/23 02/24/23 Range/Units 05:55 06:07 RBC (4.30-5.90) m/uL Hgb (13.0-17.5) gm/dL Hct (39.0-53.0) % ESR (0-15) mm/hr BUN (9-20) mg/dL Glucose (74-99) mg/dL POC Glucose (mg/dL) 147 H (70-110) mg/dL Hemoglobin A1c 8.6 H (<=6.0) % Calcium (8.4-10.2) mg/dL C-Reactive Protein (<1.0) mg/dL Thrombosis Risk Factor Assmnt - Choose All That Apply Any of the Below Risk Factors Present?: Yes Each Factor Represents 1 point: Obesity (BMI >25) Other Risk Factors: Yes Each Risk Factor Represents 2 Points: Age 61-74 years Other congenital or acquired thrombophilia - If yes, enter type in comment: No Thrombosis Risk Factor Assessment Total Risk Factor Score: 3 Thrombosis Risk Factor Assessment Level: Moderate Risk
[2023-02-24 17:37] LABS: Glucose,Whole Blood 207 mg/dL (70-110)
[2023-02-24 17:37] LABS: Glucose,Whole Blood >600 mg/dL (70-110)
[2023-02-24] MEDS: TAMSULOSIN 0.4 MG CAP.ER.24H PO SCH (18:00)
[2023-02-24] MEDS: carvediloL 6.25 MG TAB PO SCH (18:00)
[2023-02-24] MEDS: SODIUM CHLORIDE 0.9% 1,000 ML IV SCH (19:26)
[2023-02-24] MEDS: IPRATROPIUM-ALBUTEROL 3 ML NEB INHALATION SCH (19:49)
[2023-02-24 20:04] LABS: Glucose,Whole Blood 215 mg/dL (70-110)
--- NOTE | 2023-02-24 21:38 | P.CONS ---
History of Present Illness - Reason for Consult Consult date: 02/24/23 - History of Present Illness Patient is a 68-year-old male with a past medical he significant for diabetes mellitus hypertension hyperlipidemia sleep apnea atrial fibrillation patient did have history of right lower extremity venous stasis ulcer and cellulitis patient presenting to the ER per instruction of the home care nurse noticed to have increasing swelling and worsening of the wound patient denies having any fever or any chills he did have mild dull aching pain to the right lower extremity 2-3 out of 10 and no radiation especially on touching the area with associated swelling redness and minimal drainage denies any foul-smelling, with the same with the patient has been evaluated on arrival to the ER patient was afebrile and no fever has been recorded subsequently did have a normal white count sed rate was elevated creatinine is normal electrolytes are normal CRP is 4.2 patient did have x-ray of the foot evidence of acute fracture or bony erosion patient was started on vancomycin infectious disease was consulted for further management of antibiotic therapy Past Medical History Past Medical History: Atrial Fibrillation, Cancer, Diabetes Mellitus, Hype rlipidemia, Hypertension, Sleep Apnea/CPAP/BIPAP Additional Past Medical History / Comment(s): Basal cell carcinoma, Heart murmur History of Any Multi-Drug Resistant Organisms: None Reported Past Surgical History: No Surgical Hx Reported Additional Past Surgical History / Comment(s): Cataract surgery right eye Past Anesthesia/Blood Transfusion Reactions: No Reported Reaction Past Psychological History: Depression Smoking Status: Never smoker Past Alcohol Use History: None Reported Past Drug Use History: None Reported - Past Family History Mother Family Medical History: Diabetes Mellitus Medications and Allergies Home Medications Medication Instructions Recorded Confirmed Type Apixaban [Eliquis] 5 mg PO BID 04/11/17 02/23/23 History Cholecalciferol [Vitamin D3 (25 25 mcg PO DAILY 12/12/22 02/23/23 History Mcg = 1000 Iu)] FLUoxetine HCL [PROzac] 20 mg PO DAILY 12/12/22 02/23/23 History Ferrous Sulfate [Iron (65 MG 325 mg PO HS 12/12/22 02/23/23 History Elemental)] Insulin Glargine,Hum.rec.anlog 30 units SQ HS 12/12/22 02/23/23 History [Lantus Solostar Pen] Insulin Lispro [humaLOG Kwikpen] See Protocol SQ TID-W/MEALS 12/12/22 02/23/23 History Testosterone [Androgel 1.62% Gel 2 packet TOPICAL DAILY 12/12/22 02/23/23 History Packet] carvediloL [Coreg] 25 mg PO BID 12/12/22 02/23/23 History Atorvastatin [Lipitor] 10 mg PO DAILY tab 12/17/22 02/23/23 Rx Acetaminophen Tab [Tylenol] 500 mg PO Q6HR PRN 01/02/23 02/23/23 History Tamsulosin HCl [Flomax] 0.4 mg PO DAILY 01/02/23 02/23/23 History Vitamin B-12 100mcg 1 tab PO DAILY 01/02/23 02/23/23 History Furosemide [Lasix] 40 mg PO DAILY tab 01/29/23 02/23/23 Rx OLANZapine [ZyPREXA] 2.5 mg PO HS tab 01/29/23 02/23/23 Rx traMADol HCL 50 mg PO Q6H PRN #12 tab 01/29/23 02/23/23 Rx Ipratropium-Albuterol Nebulize 3 ml INHALATION RT-TID 02/23/23 02/23/23 History [Duoneb 0.5 mg-3 mg/3 ml Soln] Allergies Allergy/AdvReac Type Severity Reaction Status Date / Time famotidine [From Pepcid] Allergy Unknown Verified 02/23/23 21:09 Penicillins Allergy Rash/Hives Verified 02/23/23 21:09 hydrocodone AdvReac Hallucinati Verified 02/23/23 21:09 ons lisinopril [From Prinivil] AdvReac Cough Verified 02/23/23 21:09 Physical Exam Vitals: Vital Signs Temp Pulse Pulse Resp BP BP Pulse Ox 02/24/23 02:55 98.3 F 79 19 161/67 98 02/23/23 21:45 66 18 02/23/23 20:10 97.5 F L 71 18 118/66 97 02/23/23 19:35 66 18 114/57 99 02/23/23 19:16 97.6 F 62 17 93/54 97 02/23/23 17:03 66 18 109/51 98 02/23/23 14:54 97.7 F 68 17 113/62 98 02/23/23 11:53 98.5 F 61 18 99/59 97 Intake and Output 02/23/23 02/24/23 02/24/23 22:59 06:59 14:59 Other: Voiding Method Toilet # Voids 1 1 Weight 138.346 kg Results CBC & Chem 7: 02/23/23 12:56 02/24/23 05:55 Labs: Abnormal Lab Results - Last 24 Hours (Table) 02/23/23 02/23/23 02/23/23 Range/Units 12:56 12:56 20:27 RBC 3.85 L (4.30-5.90) m/uL Hgb 11.7 L (13.0-17.5) gm/dL Hct 35.1 L (39.0-53.0) % ESR 62 H (0-15) mm/hr BUN 41 H (9-20) mg/dL Glucose 124 H (74-99) mg/dL POC Glucose (mg/dL) 181 H (70-110) mg/dL Hemoglobin A1c (<=6.0) % Calcium 8.2 L (8.4-10.2) mg/dL C-Reactive Protein 4.2 H (<1.0) mg/dL 02/24/23 02/24/23 Range/Units 05:55 06:07 RBC (4.30-5.90) m/uL Hgb (13.0-17.5) gm/dL Hct (39.0-53.0) % ESR (0-15) mm/hr BUN (9-20) mg/dL Glucose (74-99) mg/dL POC Glucose (mg/dL) 147 H (70-110) mg/dL Hemoglobin A1c 8.6 H (<=6.0) % Calcium (8.4-10.2) mg/dL C-Reactive Protein (<1.0) mg/dL Assessment and Plan Plan: 1patient with acute right lower extremity venous stasis ulcer and secondary cellulitis wound base did have some slough tissue and the patient also noted to have some purulent drainage from the wound on the dorsum aspect of the right foot will need to cover for the gram-positive skin deniz to the likely pathogen 2-penicillin allergy that will limit the number of antibiotics safe to use 3-await surgical debridement and deep culture 4-vancomycin pharmacy to dose with a target trough of 15 while watching kidney function and Vanco trough closely. We will follow on clinical condition and cultures to further adjust medication if needed Thank you for this consultation we will follow the patient along with you Dictation was produced using Draft dictation software. please excuse any grammatical, word or spelling errors. Time with Patient: Greater than 30
[2023-02-24] MEDS ORDERED: INSULIN ASPART (NovoLOG) 100 UNIT/ML VIAL SQ SCH (23:27)
[2023-02-25] MEDS: traMADol 50 MG TAB PO PRN ×2 (03:11→14:11)
[2023-02-25] MEDS: VANCOMYCIN 2,000 MG in SODIUM CHLORIDE 0.9% 500 ML 500 ML IVPB SCH ×2 (03:12→19:55)
[2023-02-25 06:20] LABS: Glucose,Whole Blood 118 mg/dL (70-110)
[2023-02-25] MEDS: INSULIN ASPART (NovoLOG) 100 UNIT/ML VIAL SQ SCH ×4 (06:21→20:37)
[2023-02-25] MEDS: carvediloL 6.25 MG TAB PO SCH ×2 (06:31→17:48)
[2023-02-25 06:53] LABS: African American GFR (CKD) >90 (>60 ml/min/1.73 sqM); Anion Gap 3 mmol/L; Blood Urea Nitrogen 20 mg/dL (9-20); Calcium 7.9 mg/dL (8.4-10.2); Carbon Dioxide 31 mmol/L (22-30); Chloride 105 mmol/L (98-107); Glucose 122 mg/dL (74-99); Non-African American GFR(CKD) >90 (>60 ml/min/1.73 sqM); Sodium 139 mmol/L (137-145)
[2023-02-25] MEDS: IPRATROPIUM-ALBUTEROL 3 ML NEB INHALATION SCH ×3 (07:35→18:10)
[2023-02-25] MEDS: TESTOSTERONE TOPICAL SCH (09:11)
[2023-02-25] MEDS: VITAMIN B12 100 MCG PO SCH (09:11)
[2023-02-25] MEDS: CHOLECALCIFEROL 25 MCG (1000 IU) TABLET PO SCH (09:15)
[2023-02-25] MEDS: APIXABAN 5 MG TAB PO SCH ×2 (09:15→19:54)
[2023-02-25] MEDS: ATORVASTATIN 10 MG TAB PO SCH (09:15)
[2023-02-25] MEDS: TAMSULOSIN 0.4 MG CAP.ER.24H PO SCH (09:15)
[2023-02-25] MEDS: FLUoxetine HCL 20 MG CAP PO SCH (09:15)
[2023-02-25 12:21] LABS: Glucose,Whole Blood 125 mg/dL (70-110)
[2023-02-25 17:02] LABS: Glucose,Whole Blood 217 mg/dL (70-110)
--- NOTE | 2023-02-25 17:05 | P.PN ---
Progress Note - Text Progress Note Date: 02/25/23 Chief Complaint: Right leg wound Hospital course: patient is 68-year-old gentleman with past medical history significant for atrial fibrillation, diabetes mellitus type 2, hyperlipidemia, hypertension, obstructive sleep apnea, basal cell carcinoma, depression Who presented to The hospital because of hallucinations. Patient was discharged on 01/29/2023 with venous stasis ulcer of the right lower extremity. Was then seen by Dr. Roblero from [place]. Was discharged on Keflex. Patient has a nurse that visits 73 times a week. Also dozes wound care on the right lower extremity. Also gets physical therapy. Patient presented with increased redness of the right leg. Some increased swelling. Has some chronic pain. Some drainage. Has been tolerating his diet. Otherwise lives alone. 02/25/2023: Patient status post debridement the right leg by Dr. Rodriguez vascular. Wounds clean presumptive MRSA. IV vancomycin. Tolerating diet. No fever no nausea vomiting. Active Medications Acetaminophen (Acetaminophen Tab 325 Mg Tab) 650 mg PO Q6HR PRN PRN Reason: Mild Pain or Fever > 100.5 Last Admin: 02/24/23 11:59 Dose: 650 mg Albuterol/Ipratropium (Ipratropium-Albuterol 3 Ml Neb) 3 ml INHALATION RT-TID [facility] Last Admin: 02/25/23 11:24 Dose: 3 ml Apixaban (Apixaban 5 Mg Tab) 5 mg PO BID [facility]; Protocol Last Admin: 02/25/23 09:15 Dose: 5 mg Atorvastatin Calcium (Atorvastatin 10 Mg Tab) 10 mg PO DAILY [facility] Last Admin: 02/25/23 09:15 Dose: 10 mg Carvedilol (Carvedilol 6.25 Mg Tab) 6.25 mg PO BID-W/MEALS [facility] Last Admin: 02/25/23 06:31 Dose: 6.25 mg Cholecalciferol (Cholecalciferol 25 Mcg (1000 Iu) Tablet) 25 mcg PO DAILY [facility] Last Admin: 02/25/23 09:15 Dose: 25 mcg Dextrose/Water (Dextrose 50% Syringe 50 Ml) 25 ml IVP PER PROTOCOL PRN; Protocol PRN Reason: Hypoglycemia Dextrose/Water (Dextrose 50% Syringe 50 Ml) 50 ml IVP PER PROTOCOL PRN; Protocol PRN Reason: Hypoglycemia Fluoxetine HCl (Fluoxetine Hcl 20 Mg Cap) 20 mg PO DAILY [facility] Last Admin: 02/25/23 09:15 Dose: 20 mg Sodium Chloride (Saline 0.9%) 1,000 mls @ 20 mls/hr IV .Q24H [facility] Last Admin: 02/24/23 19:26 Dose: Not Given Vancomycin HCl 2,000 mg/ (Sodium Chloride) 500 mls @ 167 mls/hr IVPB Q16H [facility] Last Admin: 02/25/23 03:12 Dose: 167 mls/hr Insulin Aspart (Insulin Aspart (Novolog) 100 Unit/Ml Vial) 0 unit SQ [facility]; Protocol Last Admin: 02/25/23 12:31 Dose: Not Given Insulin Detemir (Insulin Detemir (Levemir) 100 Unit/Ml Syr) 30 unit SQ [facility] Last Admin: 02/24/23 22:14 Dose: 30 unit Naloxone HCl (Naloxone 0.4 Mg/Ml 1 Ml Vial) 0.2 mg IV Q2M PRN PRN Reason: Opioid Reversal Non-Formulary Medication (Vitamin B-12 100mcg) 1 tab PO DAILY [facility] Last Admin: 02/25/23 09:11 Dose: Not Given Non-Formulary Medication (Testosterone [Androgel 1.62% Gel Packet]) 2 packet TOPICAL DAILY [facility] Last Admin: 02/25/23 09:11 Dose: Not Given Olanzapine (Olanzapine 2.5 Mg Tab) 2.5 mg PO [facility] Last Admin: 02/24/23 22:14 Dose: 2.5 mg Ondansetron HCl (Ondansetron 4 Mg/2 Ml Vial) 4 mg IVP Q8HR PRN PRN Reason: Nausea And Vomiting Tamsulosin HCl (Tamsulosin 0.4 Mg Cap.Er.24h) 0.4 mg PO DAILY [facility] Last Admin: 02/25/23 09:15 Dose: 0.4 mg Tramadol HCl (Tramadol 50 Mg Tab) 50 mg PO Q6H PRN PRN Reason: Pain Last Admin: 02/25/23 14:11 Dose: 50 mg Past medical history to include: Atrial fibrillation, diabetes, hypertension, hyperlipidemia, obstructive sleep apnea, basal cell carcinoma, depression, Social history: Lives alone. Does get home nurse and physical therapy. Denies smoking, alcohol. Physical examination: VITAL SIGNS: 97.8, 70, 16, 11 3 x 66, 97% room air GENERAL: Reclining in bed awake, comfortable EYES: Pupils equal. Conjunctiva normal. HEENT: External appearance of nose and ears normal, oral cavity grossly normal. NECK: JVD not raised; masses not palpable. HEART: First and second heart sounds are normal; no edema. LUNGS: Respiratory rate normal; clear to auscultation. ABDOMEN: Soft, distended, nontender, liver spleen not palpable, no masses palpable. PSYCH: Alert and oriented x3; mood and affect normal. MUSCULOSKELETAL:No Clubbing/cyanosis;muscles-grossly intact EXTREMITIES: Dressing over right lower extremity INVESTIGATIONS, reviewed in the clinical context: 02/25/2023: Potassium 4 creatinine 0.81 Right lower extremity wound culture: Presumptive MRSA White count 8.5 hemoglobin 11.7 platelets 247 sodium 137 potassium 4.1 BUN 41 and creatinine 1.16 CRP 4.2 X-ray right foot: No evidence of fracture or any evidence of any osseous erosions. Soft tissue swelling. Previous studies 2-D echocardiogram [December 2022]: Severe aortic stenosis. Moderate pulmonary hypertension. EF 55-60%. Assessment and plan: -Acute on chronic right lower extremity cellulitis, with venous ulcer with worsening infection: Presumptive MRSA IV vancomycin. Status post wound debridement by Dr. Dr. Rodriguez from vascular surgery. -Chronic gait dysfunction. Multiple medical problems. Uses walker at baseline -Paroxysmal atrial fibrillation currently normal sinus rhythm Coreg. Eliquis -Diabetes mellitus type 2 , chronically on insulin Follow Accu-Cheks -Secondary moderate pulmonary hypertension -Severe aortic stenosis: Does follow with cardiology -Essential Hypertension Cutback Coreg to 6.25 by mouth twice a day. -Hyperlipidemia Lipitor 10 mg daily -Morbid obesity with BMI of 40.2 Weight loss measures -Obstructive sleep apnea and does not use CPAP as he cannot tolerate the mask -Depression Zyprexa. Prozac. -Full code IV vancomycin. Discussed with patient. Other medications to continue.
[2023-02-25] MEDS: SODIUM CHLORIDE 0.9% 1,000 ML IV SCH (17:48)
[2023-02-25] MEDS: OLANZapine 2.5 MG TAB PO SCH (19:54)
[2023-02-25 20:37] LABS: Glucose,Whole Blood 203 mg/dL (70-110)
[2023-02-25] MEDS: INSULIN DETEMIR (LEVEMIR) 100 UNIT/ML SYR SQ SCH (20:37)
[2023-02-26] MEDS: carvediloL 6.25 MG TAB PO SCH ×2 (05:39→17:35)
[2023-02-26 05:40] LABS: Glucose,Whole Blood 120 mg/dL (70-110)
[2023-02-26] MEDS: INSULIN ASPART (NovoLOG) 100 UNIT/ML VIAL SQ SCH ×4 (05:40→21:16)
[2023-02-26] MEDS: VITAMIN B12 100 MCG PO SCH (07:50)
[2023-02-26] MEDS: TESTOSTERONE TOPICAL SCH (07:50)
[2023-02-26] MEDS: APIXABAN 5 MG TAB PO SCH ×2 (07:51→21:16)
[2023-02-26] MEDS: TAMSULOSIN 0.4 MG CAP.ER.24H PO SCH (07:51)
[2023-02-26] MEDS: ATORVASTATIN 10 MG TAB PO SCH (07:51)
[2023-02-26] MEDS: CHOLECALCIFEROL 25 MCG (1000 IU) TABLET PO SCH (07:51)
[2023-02-26] MEDS: FLUoxetine HCL 20 MG CAP PO SCH (07:51)
[2023-02-26] MEDS: IPRATROPIUM-ALBUTEROL 3 ML NEB INHALATION SCH ×3 (08:46→19:40)
[2023-02-26] MEDS: VANCOMYCIN 2,000 MG in SODIUM CHLORIDE 0.9% 500 ML 500 ML IVPB SCH (11:03)
[2023-02-26 12:50] LABS: Glucose,Whole Blood 155 mg/dL (70-110)
[2023-02-26] MEDS: SODIUM CHLORIDE 0.9% 1,000 ML IV SCH (14:11)
--- NOTE | 2023-02-26 14:31 | P.PN ---
Progress Note - Text Progress Note Date: 02/26/23 Chief Complaint: Right leg wound Hospital course: patient is 68-year-old gentleman with past medical history significant for atrial fibrillation, diabetes mellitus type 2, hyperlipidemia, hypertension, obstructive sleep apnea, basal cell carcinoma, depression Who presented to The hospital because of hallucinations. Patient was discharged on 01/29/2023 with venous stasis ulcer of the right lower extremity. Was then seen by Dr. Roblero from [place]. Was discharged on Keflex. Patient has a nurse that visits 73 times a week. Also dozes wound care on the right lower extremity. Also gets physical therapy. Patient presented with increased redness of the right leg. Some increased swelling. Has some chronic pain. Some drainage. Has been tolerating his diet. Otherwise lives alone. 02/25/2023: Patient status post debridement the right leg by Dr. Rodriguez vascular. Wounds clean presumptive MRSA. IV vancomycin. Tolerating diet. No fever no nausea vomiting. 02/26/2023: Wound cultures still preliminary showing MRSA. Pain control. No fever no chills. IV vancomycin. Further surgical intervention as per Dr. Rodriguez. Active Medications Acetaminophen (Acetaminophen Tab 325 Mg Tab) 650 mg PO Q6HR PRN PRN Reason: Mild Pain or Fever > 100.5 Last Admin: 02/24/23 11:59 Dose: 650 mg Albuterol/Ipratropium (Ipratropium-Albuterol 3 Ml Neb) 3 ml INHALATION RT-TID [facility] Last Admin: 02/26/23 12:36 Dose: 3 ml Apixaban (Apixaban 5 Mg Tab) 5 mg PO BID [facility]; Protocol Last Admin: 02/26/23 07:51 Dose: 5 mg Atorvastatin Calcium (Atorvastatin 10 Mg Tab) 10 mg PO DAILY [facility] Last Admin: 02/26/23 07:51 Dose: 10 mg Carvedilol (Carvedilol 6.25 Mg Tab) 6.25 mg PO BID-W/MEALS [facility] Last Admin: 02/26/23 05:39 Dose: 6.25 mg Cholecalciferol (Cholecalciferol 25 Mcg (1000 Iu) Tablet) 25 mcg PO DAILY [facility] Last Admin: 02/26/23 07:51 Dose: 25 mcg Dextrose/Water (Dextrose 50% Syringe 50 Ml) 25 ml IVP PER PROTOCOL PRN; Protocol PRN Reason: Hypoglycemia Dextrose/Water (Dextrose 50% Syringe 50 Ml) 50 ml IVP PER PROTOCOL PRN; Protocol PRN Reason: Hypoglycemia Fluoxetine HCl (Fluoxetine Hcl 20 Mg Cap) 20 mg PO DAILY [facility] Last Admin: 02/26/23 07:51 Dose: 20 mg Sodium Chloride (Saline 0.9%) 1,000 mls @ 20 mls/hr IV .Q24H [facility] Last Admin: 02/26/23 14:11 Dose: Not Given Vancomycin HCl 2,000 mg/ (Sodium Chloride) 500 mls @ 167 mls/hr IVPB Q16H [facility] Last Admin: 02/26/23 11:03 Dose: 167 mls/hr Insulin Aspart (Insulin Aspart (Novolog) 100 Unit/Ml Vial) 0 unit SQ ACHS [facility]; Protocol Last Admin: 02/26/23 13:36 Dose: Not Given Insulin Detemir (Insulin Detemir (Levemir) 100 Unit/Ml Syr) 30 unit SQ [facility] Last Admin: 02/25/23 20:37 Dose: 30 unit Miscellaneous Information (Vancomycin Trough Due 1 Each Misc) 0 each MISCELLANE DIRECTED ONE Stop: 02/27/23 02:01 Naloxone HCl (Naloxone 0.4 Mg/Ml 1 Ml Vial) 0.2 mg IV Q2M PRN PRN Reason: Opioid Reversal Non-Formulary Medication (Vitamin B-12 100mcg) 1 tab PO DAILY [facility] Last Admin: 02/26/23 07:50 Dose: Not Given Non-Formulary Medication (Testosterone [Androgel 1.62% Gel Packet]) 2 packet TOPICAL DAILY [facility] Last Admin: 02/26/23 07:50 Dose: Not Given Olanzapine (Olanzapine 2.5 Mg Tab) 2.5 mg PO [facility] Last Admin: 02/25/23 19:54 Dose: 2.5 mg Ondansetron HCl (Ondansetron 4 Mg/2 Ml Vial) 4 mg IVP Q8HR PRN PRN Reason: Nausea And Vomiting Tamsulosin HCl (Tamsulosin 0.4 Mg Cap.Er.24h) 0.4 mg PO DAILY [facility] Last Admin: 02/26/23 07:51 Dose: 0.4 mg Tramadol HCl (Tramadol 50 Mg Tab) 50 mg PO Q6H PRN PRN Reason: Pain Last Admin: 02/25/23 14:11 Dose: 50 mg Past medical history to include: Atrial fibrillation, diabetes, hypertension, hyperlipidemia, obstructive sleep apnea, basal cell carcinoma, depression, Social history: Lives alone. Does get home nurse and physical therapy. Denies smoking, alcohol. Physical examination: VITAL SIGNS: 98.2, 72, 16, 150/100, 96% room air GENERAL: Reclining in bed awake, comfortable EYES: Pupils equal. Conjunctiva normal. HEENT: External appearance of nose and ears normal, oral cavity grossly normal. NECK: JVD not raised; masses not palpable. HEART: First and second heart sounds are normal; no edema. LUNGS: Respiratory rate normal; clear to auscultation. ABDOMEN: Soft, distended, nontender, liver spleen not palpable, no masses palpable. PSYCH: Alert and oriented x3; mood and affect normal. MUSCULOSKELETAL:No Clubbing/cyanosis;muscles-grossly intact EXTREMITIES: Dressing over right lower extremity INVESTIGATIONS, reviewed in the clinical context: 02/25/2023: Potassium 4 creatinine 0.81 Right lower extremity wound culture: Presumptive MRSA White count 8.5 hemoglobin 11.7 platelets 247 sodium 137 potassium 4.1 BUN 41 and creatinine 1.16 CRP 4.2 X-ray right foot: No evidence of fracture or any evidence of any osseous erosions. Soft tissue swelling. Previous studies 2-D echocardiogram [December 2022]: Severe aortic stenosis. Moderate pulmonary hypertension. EF 55-60%. Assessment and plan: -Acute on chronic right lower extremity cellulitis, with venous ulcer with worsening infection: Presumptive MRSA IV vancomycin. Status post wound debridement by Dr. Dr. Rodriguez / vascular surgery. -Chronic gait dysfunction. Multiple medical problems. Uses walker at baseline -Paroxysmal atrial fibrillation currently normal sinus rhythm Coreg. Eliquis -Diabetes mellitus type 2 , chronically on insulin Follow Accu-Cheks -Secondary moderate pulmonary hypertension -Severe aortic stenosis: Does follow with cardiology -Essential Hypertension Cutback Coreg to 6.25 by mouth twice a day. -Hyperlipidemia Lipitor 10 mg daily -Morbid obesity with BMI of 40.2 Weight loss measures -Obstructive sleep apnea and does not use CPAP as he cannot tolerate the mask -Depression Zyprexa. Prozac. -Full code IV vancomycin. Discussed . Await cultures to finalize.
[2023-02-26 17:19] LABS: Glucose,Whole Blood 269 mg/dL (70-110)
[2023-02-26] MEDS: traMADol 50 MG TAB PO PRN (17:35)
[2023-02-26 20:27] LABS: Glucose,Whole Blood 273 mg/dL (70-110)
[2023-02-26] MEDS: INSULIN DETEMIR (LEVEMIR) 100 UNIT/ML SYR SQ SCH (21:17)
[2023-02-26] MEDS: OLANZapine 2.5 MG TAB PO SCH (21:17)
[2023-02-27] MEDS ORDERED: VANCOMYCIN TROUGH DUE 1 EACH MISC MISCELLANE ONE (02:00)
[2023-02-27 03:31] LABS: African American GFR (CKD) 79 (>60 ml/min/1.73 sqM); Non-African American GFR(CKD) 68 (>60 ml/min/1.73 sqM)
[2023-02-27] MEDS: VANCOMYCIN 2,000 MG in SODIUM CHLORIDE 0.9% 500 ML 500 ML IVPB SCH ×2 (04:07→09:22)
[2023-02-27 06:13] LABS: Glucose,Whole Blood 122 mg/dL (70-110)
[2023-02-27] MEDS: INSULIN ASPART (NovoLOG) 100 UNIT/ML VIAL SQ SCH ×4 (06:23→21:12)
[2023-02-27] MEDS: carvediloL 6.25 MG TAB PO SCH ×2 (06:43→16:42)
[2023-02-27] MEDS: IPRATROPIUM-ALBUTEROL 3 ML NEB INHALATION SCH ×3 (08:29→20:57)
[2023-02-27] MEDS: TAMSULOSIN 0.4 MG CAP.ER.24H PO SCH (09:01)
[2023-02-27] MEDS: CHOLECALCIFEROL 25 MCG (1000 IU) TABLET PO SCH (09:01)
[2023-02-27] MEDS: TESTOSTERONE TOPICAL SCH (09:01)
[2023-02-27] MEDS: ATORVASTATIN 10 MG TAB PO SCH (09:01)
[2023-02-27] MEDS: VITAMIN B12 100 MCG PO SCH (09:01)
[2023-02-27] MEDS: APIXABAN 5 MG TAB PO SCH ×2 (09:01→21:12)
[2023-02-27 11:27] LABS: Glucose,Whole Blood 157 mg/dL (70-110)
[2023-02-27] MEDS: traMADol 50 MG TAB PO PRN (11:50)
[2023-02-27] MEDS: CEFEPIME 2 GM in SODIUM CHLORIDE 0.9% 100 ML IVPB SCH ×2 (12:27→21:11)
--- NOTE | 2023-02-27 16:30 | P.PN ---
Progress Note - Text Progress Note Date: 02/27/23 Chief Complaint: Right leg wound Hospital course: patient is 68-year-old gentleman with past medical history significant for atrial fibrillation, diabetes mellitus type 2, hyperlipidemia, hypertension, obstructive sleep apnea, basal cell carcinoma, depression Who presented to The hospital because of hallucinations. Patient was discharged on 01/29/2023 with venous stasis ulcer of the right lower extremity. Was then seen by Dr. Roblero from [place]. Was discharged on Keflex. Patient has a nurse that visits 73 times a week. Also dozes wound care on the right lower extremity. Also gets physical therapy. Patient presented with increased redness of the right leg. Some increased swelling. Has some chronic pain. Some drainage. Has been tolerating his diet. Otherwise lives alone. 02/25/2023: Patient status post debridement the right leg by Dr. Rodriguez vascular. Wounds clean presumptive MRSA. IV vancomycin. Tolerating diet. No fever no nausea vomiting. 02/26/2023: Wound cultures still preliminary showing MRSA. Pain control. No fever no chills. IV vancomycin. Further surgical intervention as per Dr. Rodriguez. 02/27/2023: Wound cultures are not finalized. Started on IV cefepime and IV vancomycin to continue. Swelling of lower extremity. Start IV Lasix. Eating well. Discussed with [place]. Active Medications Acetaminophen (Acetaminophen Tab 325 Mg Tab) 650 mg PO Q6HR PRN PRN Reason: Mild Pain or Fever > 100.5 Last Admin: 02/24/23 11:59 Dose: 650 mg Albuterol/Ipratropium (Ipratropium-Albuterol 3 Ml Neb) 3 ml INHALATION RT-TID [facility] Last Admin: 02/27/23 15:47 Dose: 3 ml Apixaban (Apixaban 5 Mg Tab) 5 mg PO BID [facility]; Protocol Last Admin: 02/27/23 09:01 Dose: 5 mg Atorvastatin Calcium (Atorvastatin 10 Mg Tab) 10 mg PO DAILY [facility] Last Admin: 02/27/23 09:01 Dose: 10 mg Carvedilol (Carvedilol 6.25 Mg Tab) 6.25 mg PO BID-W/MEALS [facility] Last Admin: 02/27/23 06:43 Dose: 6.25 mg Cholecalciferol (Cholecalciferol 25 Mcg (1000 Iu) Tablet) 25 mcg PO DAILY [facility] Last Admin: 02/27/23 09:01 Dose: 25 mcg Dextrose/Water (Dextrose 50% Syringe 50 Ml) 25 ml IVP PER PROTOCOL PRN; Protocol PRN Reason: Hypoglycemia Dextrose/Water (Dextrose 50% Syringe 50 Ml) 50 ml IVP PER PROTOCOL PRN; Protocol PRN Reason: Hypoglycemia Fluoxetine HCl (Fluoxetine Hcl 20 Mg Cap) 20 mg PO DAILY [facility] Last Admin: 02/26/23 07:51 Dose: 20 mg Furosemide (Furosemide 10 Mg/Ml 4 Ml Vial) 40 mg IV Q12HR [facility] Vancomycin HCl 2,000 mg/ (Sodium Chloride) 500 mls @ 167 mls/hr IVPB Q24H [facility] Last Admin: 02/27/23 09:22 Dose: 167 mls/hr Cefepime HCl 2 gm/ Sodium (Chloride) 100 mls @ 25 mls/hr IVPB Q8H [facility]; Protocol Last Admin: 02/27/23 12:27 Dose: 25 mls/hr Insulin Aspart (Insulin Aspart (Novolog) 100 Unit/Ml Vial) 0 unit SQ ACHS [facility]; Protocol Last Admin: 02/27/23 13:24 Dose: 2 unit Insulin Detemir (Insulin Detemir (Levemir) 100 Unit/Ml Syr) 30 unit SQ [facility] Last Admin: 02/26/23 21:17 Dose: 30 unit Naloxone HCl (Naloxone 0.4 Mg/Ml 1 Ml Vial) 0.2 mg IV Q2M PRN PRN Reason: Opioid Reversal Non-Formulary Medication (Vitamin B-12 100mcg) 1 tab PO DAILY [facility] Last Admin: 02/27/23 09:01 Dose: Not Given Non-Formulary Medication (Testosterone [Androgel 1.62% Gel Packet]) 2 packet TOPICAL DAILY [facility] Last Admin: 02/27/23 09:01 Dose: Not Given Olanzapine (Olanzapine 2.5 Mg Tab) 2.5 mg PO [facility] Last Admin: 02/26/23 21:17 Dose: 2.5 mg Ondansetron HCl (Ondansetron 4 Mg/2 Ml Vial) 4 mg IVP Q8HR PRN PRN Reason: Nausea And Vomiting Tamsulosin HCl (Tamsulosin 0.4 Mg Cap.Er.24h) 0.4 mg PO DAILY [facility] Last Admin: 02/27/23 09:01 Dose: 0.4 mg Tramadol HCl (Tramadol 50 Mg Tab) 50 mg PO Q6H PRN PRN Reason: Pain Last Admin: 02/27/23 11:50 Dose: 50 mg Past medical history to include: Atrial fibrillation, diabetes, hypertension, hyperlipidemia, obstructive sleep apnea, basal cell carcinoma, depression, Social history: Lives alone. Does get home nurse and physical therapy. Denies smoking, alcohol. Physical examination: VITAL SIGNS: 98.2, 58, 16, 126/60, 100% room air GENERAL: Reclining in bed awake, comfortable EYES: Pupils equal. Conjunctiva normal. HEENT: External appearance of nose and ears normal, oral cavity grossly normal. NECK: JVD not raised; masses not palpable. HEART: First and second heart sounds are normal; edema present LUNGS: Respiratory rate normal; clear to auscultation. ABDOMEN: Soft, distended, nontender, liver spleen not palpable, no masses palpable. PSYCH: Alert and oriented x3; mood and affect normal. MUSCULOSKELETAL:No Clubbing/cyanosis;muscles-grossly intact EXTREMITIES: Dressing over right lower extremity INVESTIGATIONS, reviewed in the clinical context: 02/25/2023: Potassium 4 creatinine 0.81 Right lower extremity wound culture: Presumptive MRSA White count 8.5 hemoglobin 11.7 platelets 247 sodium 137 potassium 4.1 BUN 41 and creatinine 1.16 CRP 4.2 X-ray right foot: No evidence of fracture or any evidence of any osseous erosions. Soft tissue swelling. Previous studies 2-D echocardiogram [December 2022]: Severe aortic stenosis. Moderate pulmonary hypertension. EF 55-60%. Assessment and plan: -Acute on chronic right lower extremity cellulitis, with venous ulcer with worsening infection: Presumptive MRSA and gram-negative bacilli. IV vancomycin. Status post wound debridement by Dr. Dr. Rodriguez / vascular surgery. IV cefepime added. -Chronic gait dysfunction. Multiple medical problems. Uses walker at baseline -Paroxysmal atrial fibrillation currently normal sinus rhythm Coreg. Eliquis -Diabetes mellitus type 2 , chronically on insulin Follow Accu-Cheks -Secondary moderate pulmonary hypertension -Severe aortic stenosis: Does follow with cardiology -Essential Hypertension Cutback Coreg to 6.25 by mouth twice a day. -Hyperlipidemia Lipitor 10 mg daily -Morbid obesity with BMI of 40.2 Weight loss measures -Obstructive sleep apnea and does not use CPAP as he cannot tolerate the mask -Depression Zyprexa. Prozac. -Full code IV vancomycin. Discussed . Await cultures to finalize. IV Lasix added for fluid overload.
[2023-02-27 17:19] LABS: Glucose,Whole Blood 214 mg/dL (70-110)
--- NOTE | 2023-02-27 18:34 | CDI ---
Documentation Clarification Form Date: 02/27/2023 06:19:47 PM From: Nicolle Pugh RN, CCDS Admit Date: 02/23/2023 05:37:00 PM Patient Name: Lex Maldonado Visit Number: [id number] Discharge Date: ATTENTION: The Clinical Documentation Specialists (CDI) and [facility] Coding Staff appreciate your assistance in clarifying documentation. Please respond to the clarification below the line at the bottom and electronically sign. The CDI & [facility] Coding staff will review the response and follow-up if needed. Please note: Queries are made part of the Legal Health Record. If you have any questions, please contact the author of this message via ITS. Dr. Hakan Ortega debridement is documented in the procedure note on 02/24/23. Additional clarification regarding the procedure is requested. History/Risk Factors: Atrial Fibrillation, Cancer, Diabetes Mellitus, Hyperlipidemia, Hypertension, Sleep Apnea/CPAP/BIPAP Clinical Indicators: Preoperative diagnoses is infected venous ulcer right lower extremity lateral aspect measurement is 7 x 5 cm, right foot dorsum aspect measurement is 1.2 cm right foot second toe 2 x 1 cm Treatment: Debridement of the wound on the lateral aspect of the right foot and dorsum and right foot and second toe. Aquacel silver and pressure dressing applied to right leg elevation change of dressing every 48 hours. Please clarify the type of procedure performed and what was removed. [ ] Excisional debridement (the removal of necrotic, devitalized tissue or slough by means of cutting away of tissue) [ ] Non-excisional debridement (the removal of necrotic, devitalized tissue or slough by means of flushing, brushing, or washing. (Irrigation) [ ] Other; please specify [ ] Unable to determine. Five elements required for accurate and compliant documentation of a debridement: Technique used (e.g., excisional, excised, cutting, brushing, jet lavage etc.) Instrument(s) used (e.g., scalpel, curette, etc.) Nature of the tissue removed (e.g., necrotic, devitalized tissues, non-viable tissue, etc.) Appearance and size of the wound (e.g., down to fresh bleeding tissue, 7cm x 10cm, etc.) Depth of the debridement* (e.g., skin, subcutaneous tissue, fascia, muscle, bone, etc.) (Template Last Revised: September 2020) MTDD
[2023-02-27 20:20] LABS: Glucose,Whole Blood 237 mg/dL (70-110)
[2023-02-27] MEDS: FUROSEMIDE 10 MG/ML 4 ML VIAL IV SCH (21:12)
[2023-02-27] MEDS: INSULIN DETEMIR (LEVEMIR) 100 UNIT/ML SYR SQ SCH (21:13)
[2023-02-27] MEDS: OLANZapine 2.5 MG TAB PO SCH (21:19)
--- NOTE | 2023-02-27 22:20 | P.PN ---
Subjective Progress Note Date: 02/27/23 Principal diagnosis: R leg wound and cellulitis Patient is a 68-year old male with multiple comorbidities presenting to the hospital with increasing swelling redness and drainage of the right lower extremity patient has been diagnosed with infected wound and cellulitis status post debridement by vascular surgery and deep cultures On today's evaluation that is 02/27/2023 the patient continues to be afebrile, the patient is breathing comfortably on room air and no need for supplemental oxygen denies any chest pain shortness of breath or cough no nausea no current abdo milton pain did have more swelling to the right lower extremity and pain at the time of dressing changes. And no CBC was done today creatinine is 1.09 Vanco trough is 24.8, local cultures are growing MRSA and gram-negative with sensitivity of the gram- negative still pending Objective - Vital Signs Vital signs: Vital Signs Temp 97.9 F 02/27/23 06:55 Pulse 74 02/27/23 08:41 Resp 16 02/27/23 08:00 BP 135/60 02/27/23 06:55 Pulse Ox 98 02/27/23 06:55 FiO2 Intake & Output 02/26/23 02/27/23 02/27/23 18:59 06:59 18:59 Other: Voiding Method Toilet Toilet # Voids 2 2 - Exam GENERAL DESCRIPTION: Elderly male lying in bed in no distress RESPIRATORY SYSTEM: Unlabored breathing , decreased breath sounds at bases HEART: S1 S2 regular rate and rhythm ,no loud murmurs ABDOMEN: Soft , no tenderness EXTREMITIES: Right lower extremity wound base did have minimal slough. Surrounding redness has improved however the patient has significant swelling especially to the thigh area with blister formation - Labs CBC & Chem 7: 02/23/23 12:56 02/27/23 02:30 Labs: Abnormal Lab Results - Last 24 Hours (Table) 02/26/23 02/26/23 02/26/23 Range/Units 12:50 17:17 20:25 POC Glucose (mg/dL) 155 H 269 H 273 H (70-110) mg/dL 02/27/23 02/27/23 Range/Units 06:10 11:24 POC Glucose (mg/dL) 122 H 157 H (70-110) mg/dL Microbiology - Last 24 Hours (Table) 02/24/23 16:34 Anaerobic Culture - Preliminary Leg - Right 02/24/23 16:34 Gram Stain - Preliminary Leg - Right Tissue Culture - Preliminary Gram Neg Bacilli Presumptive MRSA 02/24/23 11:50 Anaerobic Culture - Preliminary Leg - Right 02/24/23 11:50 Anaerobic Culture - Preliminary Foot - Right 02/23/23 18:25 Blood Culture Gram Stain - Preliminary Blood Blood Culture - Preliminary 02/24/23 11:50 Gram Stain - Preliminary Leg - Right Wound Culture - Preliminary Methicillin resist S. aureus 02/24/23 11:50 Gram Stain - Preliminary Foot - Right Wound Culture - Preliminary Methicillin resist S. aureus Gram Neg Bacilli Assessment and Plan (1) Leg wound, right Current Visit: Yes Status: Acute Code(s): S81.801A - UNSPECIFIED OPEN WOUND, RIGHT LOWER LEG, INITIAL ENCOUNTER SNOMED Code(s): 894683806 (2) Cellulitis of right leg Current Visit: No Status: Acute Code(s): L03.115 - CELLULITIS OF RIGHT LOWER LIMB SNOMED Code(s): 190641622 Plan: 1patient with acute right lower extremity venous stasis ulcer and secondary cellulitis wound base did have some slough tissue and the patient also noted to have some purulent drainage from the wound on the dorsum aspect of the right foot will need to cover for the gram-positive skin deniz to the likely pathogen 2-penicillin allergy that will limit the number of antibiotics safe to use 3-Patient is s/p surgical debridement and deep cultures , Cultures are currently growing MRSA and gram-negative bacilli with sensitivities of the gram-negative is currently pending. 4positive blood culture with staph epi likely skin contamination. 5we will continue patient on vancomycin pharmacy to dose, does need to be adjusted to keep the trough around 15 and will add cefepime to cover for the gram-negative the discharge antibiotic on the basis of sensitivity of the gram- negative this was discussed with the admitting physician likely oral and the patient benefit from more diuretics keeping in mind significant swelling to the right lower extremity Dictation was produced using [employer] dictation software. please excuse any grammatical, word or spelling errors. Time with Patient: Greater than 30
[2023-02-28] MEDS: CEFEPIME 2 GM in SODIUM CHLORIDE 0.9% 100 ML IVPB SCH ×2 (04:33→18:13)
[2023-02-28 06:11] LABS: Glucose,Whole Blood 170 mg/dL (70-110)
[2023-02-28] MEDS: INSULIN ASPART (NovoLOG) 100 UNIT/ML VIAL SQ SCH ×4 (06:42→20:56)
[2023-02-28 06:43] LABS: Basophils % (A) 0 %; Eosinophils # (A) 0.4 k/uL (0-0.7); Eosinophils % (A) 5 %; HCT 35.4 % (39.0-53.0); HGB 11.2 gm/dL (13.0-17.5); Hypochromasia Slight; Lymphocytes # (A) 1.2 k/uL (1.0-4.8); Lymphocytes % (A) 15 %; MCH 29.4 pg (25.0-35.0); MCHC 31.8 g/dL (31.0-37.0); MCV 92.4 fL (80.0-100.0); Mean Platelet Volume 7.4; Monocytes # (A) 0.6 k/uL (0-1.0); Monocytes % (A) 7 %; Neutrophils # (A) 5.5 k/uL (1.3-7.7); Neutrophils % (A) 70 %; Platelet Count 278 k/uL (150-450); RBC 3.83 m/uL (4.30-5.90); WBC 7.9 k/uL (3.8-10.6)
[2023-02-28] MEDS: carvediloL 6.25 MG TAB PO SCH ×2 (06:43→17:44)
[2023-02-28 07:26] LABS: African American GFR (CKD) 54 (>60 ml/min/1.73 sqM); Anion Gap 7 mmol/L; Blood Urea Nitrogen 30 mg/dL (9-20); C Reactive Protein 5.6 mg/dL (<1.0); Calcium 8.2 mg/dL (8.4-10.2); Carbon Dioxide 27 mmol/L (22-30); Chloride 103 mmol/L (98-107); Glucose 150 mg/dL (74-99); Non-African American GFR(CKD) 47 (>60 ml/min/1.73 sqM); Potassium 4.4 mmol/L (3.5-5.1); Sodium 137 mmol/L (137-145)
[2023-02-28] MEDS: IPRATROPIUM-ALBUTEROL 3 ML NEB INHALATION SCH ×3 (08:18→21:34)
[2023-02-28] MEDS: APIXABAN 5 MG TAB PO SCH ×2 (09:19→20:56)
[2023-02-28] MEDS: ATORVASTATIN 10 MG TAB PO SCH (09:19)
[2023-02-28] MEDS: TAMSULOSIN 0.4 MG CAP.ER.24H PO SCH (09:19)
[2023-02-28] MEDS: CHOLECALCIFEROL 25 MCG (1000 IU) TABLET PO SCH (09:19)
[2023-02-28] MEDS: FUROSEMIDE 10 MG/ML 4 ML VIAL IV SCH (09:19)
[2023-02-28] MEDS: FLUoxetine HCL 20 MG CAP PO SCH (09:19)
[2023-02-28] MEDS: TESTOSTERONE TOPICAL SCH (09:20)
[2023-02-28] MEDS: VITAMIN B12 100 MCG PO SCH (09:20)
[2023-02-28] MEDS: VANCOMYCIN 2,000 MG in SODIUM CHLORIDE 0.9% 500 ML 500 ML IVPB SCH (10:11)
[2023-02-28 12:05] LABS: Glucose,Whole Blood 192 mg/dL (70-110)
--- NOTE | 2023-02-28 12:11 | US ---
EXAMINATION TYPE: US venous doppler duplex LE RT DATE OF EXAM: 02/28/2023 10:46 AM COMPARISON: Right lower extremity venous ultrasound 12/13/2022 CLINICAL INDICATION: Male, 68 years old with history of Rule out DVT; SIDE PERFORMED: Right TECHNIQUE: The lower extremity deep venous system is examined utilizing real time linear array sonog lenin with graded compression, doppler sonography and color-flow sonography. VESSELS IMAGED: Common Femoral Vein Deep Femoral Vein Greater Saphenous Vein * Femoral Vein Popliteal Vein Small Saphenous Vein * Proximal Calf Veins (* superficial vessels) Right Leg: Negative for DVT limited exam due to large body habitus and swelling, lower frequency transducer was used to attempt t o see distal femoral vein. pt has cellulitis and blisters lower rt calf IMPRESSION: Limited examination. No ultrasound evidence for deep venous thrombosis of the visualized right lower extremity. The dista l femoral vein is poorly visualized.
[2023-02-28 17:13] LABS: Glucose,Whole Blood 157 mg/dL (70-110)
--- NOTE | 2023-02-28 18:27 | P.PN ---
Progress Note - Text Progress Note Date: 02/28/23 Chief Complaint: Right leg wound Hospital course: patient is 68-year-old gentleman with past medical history significant for atrial fibrillation, diabetes mellitus type 2, hyperlipidemia, hypertension, obstructive sleep apnea, basal cell carcinoma, depression Who presented to The hospital because of hallucinations. Patient was discharged on 01/29/2023 with venous stasis ulcer of the right lower extremity. Was then seen by Dr. Roblero from ID. Was discharged on Keflex. Patient has a nurse that visits 73 times a week. Also dozes wound care on the right lower extremity. Also gets physical therapy. Patient presented with increased redness of the right leg. Some increased swelling. Has some chronic pain. Some drainage. Has been tolerating his diet. Otherwise lives alone. 02/25/2023: Patient status post debridement the right leg by Dr. Rodriguez vascular. Wounds clean presumptive MRSA. IV vancomycin. Tolerating diet. No fever no nausea vomiting. 02/26/2023: Wound cultures still preliminary showing MRSA. Pain control. No fever no chills. IV vancomycin. Further surgical intervention as per Dr. Rodriguez. 02/27/2023: Wound cultures are not finalized. Started on IV cefepime and IV vancomycin to continue. Swelling of lower extremity. Start IV Lasix. Eating well. Discussed with ID. 02/28/2023: Patient IV cefepime. Vancomycin. Creatinine did call up to 1.49. Pharmacy is following the dose. Discussed with ID. He'll follow creatinine t omorrow. Oral intake good. Patient will be going home eventually. Wound cultures also growing Enterobacter cloacae in addition to MRSA. Ultrasound negative for right leg DVT. Stop IV Lasix. Active Medications Acetaminophen (Acetaminophen Tab 325 Mg Tab) 650 mg PO Q6HR PRN PRN Reason: Mild Pain or Fever > 100.5 Last Admin: 02/24/23 11:59 Dose: 650 mg Albuterol/Ipratropium (Ipratropium-Albuterol 3 Ml Neb) 3 ml INHALATION RT-TID [facility] Last Admin: 02/28/23 13:26 Dose: Not Given Apixaban (Apixaban 5 Mg Tab) 5 mg PO BID [facility]; Protocol Last Admin: 02/28/23 09:19 Dose: 5 mg Atorvastatin Calcium (Atorvastatin 10 Mg Tab) 10 mg PO DAILY [facility] Last Admin: 02/28/23 09:19 Dose: 10 mg Carvedilol (Carvedilol 6.25 Mg Tab) 6.25 mg PO BID-W/MEALS [facility] Last Admin: 02/28/23 17:44 Dose: 6.25 mg Cholecalciferol (Cholecalciferol 25 Mcg (1000 Iu) Tablet) 25 mcg PO DAILY [facility] Last Admin: 02/28/23 09:19 Dose: 25 mcg Dextrose/Water (Dextrose 50% Syringe 50 Ml) 25 ml IVP PER PROTOCOL PRN; Protocol PRN Reason: Hypoglycemia Dextrose/Water (Dextrose 50% Syringe 50 Ml) 50 ml IVP PER PROTOCOL PRN; Protocol PRN Reason: Hypoglycemia Fluoxetine HCl (Fluoxetine Hcl 20 Mg Cap) 20 mg PO DAILY [facility] Last Admin: 02/28/23 09:19 Dose: 20 mg Furosemide (Furosemide 10 Mg/Ml 4 Ml Vial) 40 mg IV Q12HR [facility] Last Admin: 02/28/23 09:19 Dose: 40 mg Vancomycin HCl 2,000 mg/ (Sodium Chloride) 500 mls @ 167 mls/hr IVPB Q24H [facility] Last Admin: 02/28/23 10:11 Dose: 167 mls/hr Cefepime HCl 2 gm/ Sodium (Chloride) 100 mls @ 25 mls/hr IVPB Q12H [facility]; Protocol Last Admin: 02/28/23 18:13 Dose: 25 mls/hr Insulin Aspart (Insulin Aspart (Novolog) 100 Unit/Ml Vial) 0 unit SQ ACHS [facility]; Protocol Last Admin: 02/28/23 17:43 Dose: 2 unit Insulin Detemir (Insulin Detemir (Levemir) 100 Unit/Ml Syr) 30 unit SQ HS [facility] Last Admin: 02/27/23 21:13 Dose: 30 unit Miscellaneous Information (Vancomycin Trough Due 1 Each Misc) 1 each MISCELLANE ONCE ONE Stop: 03/01/23 09:01 Naloxone HCl (Naloxone 0.4 Mg/Ml 1 Ml Vial) 0.2 mg IV Q2M PRN PRN Reason: Opioid Reversal Non-Formulary Medication (Vitamin B-12 100mcg) 1 tab PO DAILY [facility] Last Admin: 02/28/23 09:20 Dose: Not Given Non-Formulary Medication (Testosterone [Androgel 1.62% Gel Packet]) 2 packet TOPICAL DAILY [facility] Last Admin: 02/28/23 09:20 Dose: Not Given Olanzapine (Olanzapine 2.5 Mg Tab) 2.5 mg PO HS [facility] Last Admin: 02/27/23 21:19 Dose: 2.5 mg Ondansetron HCl (Ondansetron 4 Mg/2 Ml Vial) 4 mg IVP Q8HR PRN PRN Reason: Nausea And Vomiting Tamsulosin HCl (Tamsulosin 0.4 Mg Cap.Er.24h) 0.4 mg PO DAILY [facility] Last Admin: 02/28/23 09:19 Dose: 0.4 mg Tramadol HCl (Tramadol 50 Mg Tab) 50 mg PO Q6H PRN PRN Reason: Pain Last Admin: 02/27/23 11:50 Dose: 50 mg Past medical history to include: Atrial fibrillation, diabetes, hypertension, hyperlipidemia, obstructive sleep apnea, basal cell carcinoma, depression, Social history: Lives alone. Does get home nurse and physical therapy. Denies smoking, alcohol. Physical examination: VITAL SIGNS: 98.4, 69, 16, 1 39 x 69, 100% room air GENERAL: At the edge of the bed, comfortable EYES: Pupils equal. Conjunctiva normal. HEENT: External appearance of nose and ears normal, oral cavity grossly normal. NECK: JVD not raised; masses not palpable. HEART: First and second heart sounds are normal; edema present LUNGS: Respiratory rate normal; clear to auscultation. ABDOMEN: Soft, distended, nontender, liver spleen not palpable, no masses palpable. PSYCH: Alert and oriented x3; mood and affect normal. MUSCULOSKELETAL:No Clubbing/cyanosis;muscles-grossly intact EXTREMITIES: Dressing over right lower extremity INVESTIGATIONS, reviewed in the clinical context: February 28 dose: White count 7.9 hemoglobin 11.2 platelets 278 potassium 4.4 BUN 30 creatinine 1.49 02/25/2023: Potassium 4 creatinine 0.81 Right lower extremity wound culture: MRSA. Enterobacter cloacae. White count 8.5 hemoglobin 11.7 platelets 247 sodium 137 potassium 4.1 BUN 41 and creatinine 1.16 CRP 4.2 X-ray right foot: No evidence of fracture or any evidence of any osseous erosions. Soft tissue swelling. Previous studies 2-D echocardiogram [December 2022]: Severe aortic stenosis. Moderate pulmonary hypertension. EF 55-60%. Assessment and plan: -Acute on chronic right lower extremity cellulitis, with venous ulcer with worsening infection: Presumptive MRSA and Enterobacter cloacae. IV vancomycin. Status post wound debridement by Dr. Dr. Rodriguez / vascular surgery. IV cefepime -Acute kidney injury, ATN, could be drug induced. Also on Lasix. Discussed with ID. Following. Pharmacy dosing vancomycin. Stop Lasix -Chronic gait dysfunction. Multiple medical problems. Uses walker at baseline -Paroxysmal atrial fibrillation currently normal sinus rhythm Coreg. Eliquis -Diabetes mellitus type 2 , chronically on insulin Follow Accu-Cheks -Secondary moderate pulmonary hypertension -Severe aortic stenosis: Does follow with cardiology -Essential Hypertension Cutback Coreg to 6.25 by mouth twice a day. -Hyperlipidemia Lipitor 10 mg daily -Morbid obesity with BMI of 40.2 Weight loss measures -Obstructive sleep apnea and does not use CPAP as he cannot tolerate the mask -Depression Zyprexa. Prozac. -Full code ID following vancomycin view of renal dysfunction. Stop IV Lasix. Repeat labs. Continue antibiotics per ID.
[2023-02-28 20:39] LABS: Glucose,Whole Blood 238 mg/dL (70-110)
[2023-02-28] MEDS: INSULIN DETEMIR (LEVEMIR) 100 UNIT/ML SYR SQ SCH (20:56)
[2023-02-28] MEDS: OLANZapine 2.5 MG TAB PO SCH (20:56)
[2023-02-28 21:28] LABS: ABG Base Excess 2.9 mmol/L; ABG HCO3 27 mmol/L (21-25); ABG Oxygen Saturation 93.6 % (94-97); ABG PCO2 43 mmHg (35-45); ABG PH 7.42 (7.35-7.45); ABG PO2 67 mmHg (83-108); ABG TCO2 29 mmol/L (19-24); Allen Test Performed? Yes
[2023-03-01 06:25] LABS: Glucose,Whole Blood 105 mg/dL (70-110)
[2023-03-01] MEDS: INSULIN ASPART (NovoLOG) 100 UNIT/ML VIAL SQ SCH ×4 (06:26→21:01)
[2023-03-01] MEDS: carvediloL 6.25 MG TAB PO SCH ×2 (06:59→17:17)
[2023-03-01] MEDS: CEFEPIME 2 GM in SODIUM CHLORIDE 0.9% 100 ML IVPB SCH ×2 (07:17→17:21)
[2023-03-01] MEDS: IPRATROPIUM-ALBUTEROL 3 ML NEB INHALATION SCH ×3 (08:12→20:50)
[2023-03-01] MEDS ORDERED: VANCOMYCIN TROUGH DUE 1 EACH MISC MISCELLANE ONE (09:00)
--- NOTE | 2023-03-01 09:11 | P.PN ---
Subjective Progress Note Date: 02/28/23 Principal diagnosis: R leg wound and cellulitis Patient is a 68-year old male with multiple comorbidities presenting to the hospital with increasing swelling redness and drainage of the right lower extremity patient has been diagnosed with infected wound and cellulitis status post debridement by vascular surgery and deep cultures On today's evaluation that is 02/28/2023 the patient remains to be afebrile, the patient is breathing comfortably on room air no chest pain shortness with a cough and abdominal pain or worsening pain to the right lower extremity. Patient white count normal 7.9, patient noticed to have slight worsening of his creatinine which is up to 1.49 from yesterday reading of 1.09, local cultures grew MRSA and Enterobacter Objective - Vital Signs Vital signs: Vital Signs Temp 98.2 F 02/28/23 08:00 Pulse 73 02/28/23 08:29 Resp 16 02/28/23 08:00 BP 119/65 02/28/23 08:00 Pulse Ox 98 02/28/23 08:00 FiO2 Intake & Output 02/27/23 02/28/23 02/28/23 18:59 06:59 18:59 Intake Total 222 Balance 222 Intake: Oral 222 Other: Voiding Method Toilet Toilet # Voids 1 2 - Exam GENERAL DESCRIPTION: Elderly male lying in bed in no distress RESPIRATORY SYSTEM: Unlabored breathing , decreased breath sounds at bases HEART: S1 S2 regular rate and rhythm ,no loud murmurs ABDOMEN: Soft , no tenderness EXTREMITIES: Right lower extremity wound base did have minimal slough. Surrounding redness has improved however the patient has significant swelling especially to the thigh area with blister formation - Labs CBC & Chem 7: 02/28/23 06:18 02/28/23 06:18 Labs: Abnormal Lab Results - Last 24 Hours (Table) 02/27/23 02/27/23 02/28/23 Range/Units 17:17 20:18 06:09 RBC (4.30-5.90) m/uL Hgb (13.0-17.5) gm/dL Hct (39.0-53.0) % BUN (9-20) mg/dL Creatinine (0.66-1.25) mg/dL Glucose (74-99) mg/dL POC Glucose (mg/dL) 214 H 237 H 170 H (70-110) mg/dL Calcium (8.4-10.2) mg/dL C-Reactive Protein (<1.0) mg/dL 02/28/23 02/28/23 Range/Units 06:18 06:18 RBC 3.83 L (4.30-5.90) m/uL Hgb 11.2 L (13.0-17.5) gm/dL Hct 35.4 L (39.0-53.0) % BUN 30 H (9-20) mg/dL Creatinine 1.49 H (0.66-1.25) mg/dL Glucose 150 H (74-99) mg/dL POC Glucose (mg/dL) (70-110) mg/dL Calcium 8.2 L (8.4-10.2) mg/dL C-Reactive Protein 5.6 H (<1.0) mg/dL Microbiology - Last 24 Hours (Table) 02/24/23 11:50 Gram Stain - Preliminary Foot - Right Wound Culture - Preliminary Methicillin resist S. aureus Gram Neg Bacilli 02/24/23 11:50 Gram Stain - Final Leg - Right Wound Culture - Final Methicillin resist S. aureus Enterobacter cloacae 02/23/23 18:25 Blood Culture Gram Stain - Preliminary Blood Blood Culture - Preliminary Coagulase Negative Staph Assessment and Plan (1) Leg wound, right Current Visit: Yes Status: Acute Code(s): S81.801A - UNSPECIFIED OPEN WOUND, RIGHT LOWER LEG, INITIAL ENCOUNTER SNOMED Code(s): 664950418 (2) Cellulitis of right leg Current Visit: No Status: Acute Code(s): L03.115 - CELLULITIS OF RIGHT LOWER LIMB SNOMED Code(s): 933583272 Plan: 1patient with acute right lower extremity venous stasis ulcer and secondary cellulitis wound base did have some slough tissue and the patient also noted to have some purulent drainage from the wound on the dorsum aspect of the right foot will need to cover for the gram-positive skin deniz to the likely pathogen 2-penicillin allergy that will limit the number of antibiotics safe to use 3-Patient is s/p surgical debridement and deep cultures , Cultures are currently growing MRSA and gram-negative bacilli with sensitivities of the gram-negative is currently pending. 4positive blood culture with staph epi likely skin contamination. 5we will continue patient on vancomycin pharmacy to dose, however need to monitor his kidney function closely and may need to discontinue vancomycin if any worsening of his creatinine, and is to continue with the vancomycin and cefepime hopefully transition him to Zyvox and Cipro on discharge discussed with the admitting team Dictation was produced using [employer] dictation software. please excuse any grammatical, word or spelling errors. Time with Patient: Less than 30
[2023-03-01 09:32] LABS: ALT 17 U/L (4-49); AST 22 U/L (17-59); African American GFR (CKD) 64 (>60 ml/min/1.73 sqM); Albumin 2.8 g/dL (3.5-5.0); Alkaline Phosphatase 82 U/L (38-126); Anion Gap 4 mmol/L; Blood Urea Nitrogen 28 mg/dL (9-20); C Reactive Protein 4.4 mg/dL (<1.0); Calcium 8.4 mg/dL (8.4-10.2); Carbon Dioxide 28 mmol/L (22-30); Chloride 106 mmol/L (98-107); Globulin 2.8 g/dL; Glucose 89 mg/dL (74-99); Non-African American GFR(CKD) 55 (>60 ml/min/1.73 sqM); Potassium 3.9 mmol/L (3.5-5.1); Sodium 138 mmol/L (137-145); Total Bilirubin 0.5 mg/dL (0.2-1.3); Total Protein 5.6 g/dL (6.3-8.2)
[2023-03-01] MEDS: VITAMIN B12 100 MCG PO SCH (09:42)
[2023-03-01] MEDS: TESTOSTERONE TOPICAL SCH (09:42)
[2023-03-01] MEDS: TAMSULOSIN 0.4 MG CAP.ER.24H PO SCH (09:44)
[2023-03-01] MEDS: FLUoxetine HCL 20 MG CAP PO SCH (09:44)
[2023-03-01] MEDS: APIXABAN 5 MG TAB PO SCH ×2 (09:44→20:00)
[2023-03-01] MEDS: CHOLECALCIFEROL 25 MCG (1000 IU) TABLET PO SCH (09:44)
[2023-03-01] MEDS: ATORVASTATIN 10 MG TAB PO SCH (09:44)
[2023-03-01] MEDS: VANCOMYCIN 2,000 MG in SODIUM CHLORIDE 0.9% 500 ML 500 ML IVPB SCH (10:52)
[2023-03-01 11:49] LABS: Glucose,Whole Blood 112 mg/dL (70-110)
[2023-03-01 13:31] LABS: Basophils # (A) 0.06 X 10*3/uL (0.00-0.10); Basophils % (A) 0.8 %; Eosinophils # (A) 0.39 X 10*3/uL (0.04-0.35); HCT 34.8 % (39.6-50.0); HGB 10.8 d/dL (13.0-17.0); Lymphocytes # (A) 1.16 X 10*3/uL (0.90-5.00); Lymphocytes % (A) 14.9 %; MCH 28.9 pg (27.0-32.0); Mean Platelet Volume 9.2 FL (9.5-12.2); Monocytes # (A) 0.84 X 10*3/uL (0.20-1.00); Monocytes % (A) 10.8 %; NRBC Per 100 WBC 0 X 10*3/uL (0.00-0.01); Neutrophils # (A) 5.28 X 10*3/uL (1.80-7.70); Neutrophils % (A) 67.7 %; Platelet Count 250 X 10*3/uL (140-440); RBC 3.74 X 10*6/uL (4.40-5.60); RDW 14.9 % (11.5-14.5); WBC 7.79 X 10*3/uL (4.50-10.00)
[2023-03-01] MEDS: traMADol 50 MG TAB PO PRN ×2 (14:41→23:26)
[2023-03-01 17:11] LABS: Glucose,Whole Blood 194 mg/dL (70-110)
[2023-03-01] MEDS: OLANZapine 2.5 MG TAB PO SCH (20:00)
[2023-03-01 20:53] LABS: Glucose,Whole Blood 220 mg/dL (70-110)
[2023-03-01] MEDS: INSULIN DETEMIR (LEVEMIR) 100 UNIT/ML SYR SQ SCH (21:01)
--- NOTE | 2023-03-01 21:37 | P.PN ---
Subjective Progress Note Date: 03/01/23 Hospital course: patient is 68-year-old gentleman with past medical history significant for atrial fibrillation, diabetes mellitus type 2, hyperlipidemia, hypertension, obstructive sleep apnea, basal cell carcinoma, depression Who presented to The hospital because of hallucinations. Patient was discharged on 01/29/2023 with venous stasis ulcer of the right lower extremity. Was then seen by Dr. Roblero from ID. Was discharged on Keflex. Patient has a nurse that visits 73 times a week. Also dozes wound care on the right lower extremity. Also gets physical therapy. Patient presented with increased redness of the right leg. Some increased swelling. Has some chronic pain. Some drainage. Has been tolerating his diet. Otherwise lives alone. 02/25/2023: Patient status post debridement the right leg by Dr. Rodriguez vascular. Wounds clean presumptive MRSA. IV vancomycin. Tolerating diet. No fever no nausea vomiting. 02/26/2023: Wound cultures still preliminary showing MRSA. Pain control. No fever no chills. IV vancomycin. Further surgical intervention as per Dr. Rodriguez. 02/27/2023: Wound cultures are not finalized. Started on IV cefepime and IV vancomycin to continue. Swelling of lower extremity. Start IV Lasix. Eating well. Discussed with ID. 02/28/2023: Patient IV cefepime. Vancomycin. Creatinine did call up to 1.49. Pharmacy is following the dose. Discussed with ID. He'll follow creatinine tomorrow. Oral intake good. Patient will be going home eventually. Wound cultures also growing Enterobacter cloacae in addition to MRSA. Ultrasound negative for right leg DVT. Stop IV Lasix. 03/01/2023 Patient remains on the medical floor resting in bed. He complaints of left heel pain and recommending pressure off loading boots bilaterally patient remains mostly bedrest at this time. WHITNEY wraps in place bilateral lower extremities. He continues on IV cefepime and IV daptomycin with wound cultures of the left leg showing klebsiella pneumoniae and MRSA. ID following closely. IV lasix has been discontinued and creatinine improved to 1.31. Review of Systems Constitutional: Denied any fatigue denied any fever. Cardio vascular: denied any chest pain, palpitations Gastrointestinal: denied any nausea, vomiting, diarrhea Pulmonary: Denied any shortness of breath cough Neurologic denied any new focal deficits All inpatient medications were reviewed and appropriate changes in these medications as dictated in the interval history and assessment and plan. PHYSICAL EXAMINATION: GENERAL: The patient is alert and oriented x3, not in any acute distress. Well developed, well nourished. Obese. HEENT: Pupils are round and equally reacting to light. EOMI. No scleral icterus. No conjunctival pallor. Normocephalic, atraumatic. No pharyngeal erythema. No thyromegaly. CARDIOVASCULAR: S1 and S2 present. No murmurs, rubs, or gallops. PULMONARY: Chest is clear to auscultation, no wheezing or crackles. ABDOMEN: Soft, nontender, nondistended, normoactive bowel sounds. No palpable organomegaly. MUSCULOSKELETAL: No joint swelling or deformity. EXTREMITIES: No cyanosis, clubbing Lower extremity edema bilaterally. NEUROLOGICAL: Gross neurological examination did not reveal any focal deficits. Generalized weakness. SKIN: No rashes. Dressings intact Assessment Acute on chronic right lower extremity cellulitis with chronic venous stasis ulcer. Culture showing MRSA and klebsiella Acute kidney injury likely prerenal improving off IV lasix Paroxysmal atrial fibrillation on anticoagulation Diabetes Mellitus type 2 Moderate pulmonary hypertension Severe aortic stenosis Hyperlipidemia Morbid obesity Sleep apnea does not tolerate CPAP mask Chronic medical disability and gait dysfunction GI prophylaxis DVT prophylaxis Full Code Plan Patient to continue on IV antibiotics with plans to DC home with homecare and [facility] infusion on discharge. ID following closely. IV lasix remains on hold and repeat labs in AM. The impression and plan of care has been dictated by Dayanara Vences, Nurse Practitioner as directed. Dr. Brea MD I have performed a history and physical examination and medical decision making of this patient, discussed the same with the dictator, and agree with the dictators assessment and plan as written, documented as a scribe. Based on total visit time, I have performed more than 50% of this visit. Objective - Vital Signs Vital signs: Vital Signs Temp 97.7 F 03/01/23 08:00 Pulse 75 03/01/23 08:22 Resp 18 03/01/23 08:00 BP 149/70 03/01/23 08:00 Pulse Ox 98 03/01/23 08:00 FiO2 Intake & Output 02/28/23 03/01/23 03/01/23 18:59 06:59 18:59 Intake Total 600 Balance 600 Weight 138.346 kg Intake: Intake, IV Titration 600 Amount Cefepime 2 gm In Sodium 100 Chloride 0.9% 100 ml @ 25 mls/hr IVPB Q12H [facility] Rx# :[id number] Vancomycin 2,000 mg In 500 Sodium Chloride 0.9% 500 ml 500 ml @ 167 mls/hr IVPB Q24H [facility] Rx#: [id number] Other: Voiding Method Toilet - Labs CBC & Chem 7: 03/01/23 08:54 03/01/23 08:54 Labs: Abnormal Lab Results - Last 24 Hours (Table) 02/28/23 02/28/23 02/28/23 Range/Units 12:04 17:11 20:38 ABG pO2 (83-108) mmHg ABG HCO3 (21-25) mmol/L ABG Total CO2 (19-24) mmol/L ABG O2 Saturation (94-97) % BUN (9-20) mg/dL Creatinine (0.66-1.25) mg/dL POC Glucose (mg/dL) 192 H 157 H 238 H (70-110) mg/dL C-Reactive Protein (<1.0) mg/dL Total Protein (6.3-8.2) g/dL Albumin (3.5-5.0) g/dL 02/28/23 03/01/23 Range/Units 21:23 08:54 ABG pO2 67 L (83-108) mmHg ABG HCO3 27 H (21-25) mmol/L ABG Total CO2 29 H (19-24) mmol/L ABG O2 Saturation 93.6 L (94-97) % BUN 28 H (9-20) mg/dL Creatinine 1.31 H (0.66-1.25) mg/dL POC Glucose (mg/dL) (70-110) mg/dL C-Reactive Protein 4.4 H (<1.0) mg/dL Total Protein 5.6 L (6.3-8.2) g/dL Albumin 2.8 L (3.5-5.0) g/dL Microbiology - Last 24 Hours (Table) 02/24/23 16:34 Gram Stain - Preliminary Leg - Right Tissue Culture - Preliminary Klebsiella pneumoniae Methicillin resist S. aureus 02/23/23 18:25 Blood Culture Gram Stain - Final Blood Blood Culture - Preliminary Coagulase Negative Staph 02/24/23 11:50 Anaerobic Culture - Final Leg - Right 02/24/23 11:50 Anaerobic Culture - Final Foot - Right 02/24/23 11:50 Gram Stain - Preliminary Foot - Right Wound Culture - Preliminary Methicillin resist S. aureus Gram Neg Bacilli 02/24/23 11:50 Gram Stain - Final Leg - Right Wound Culture - Final Methicillin resist S. aureus Enterobacter cloacae Assessment and Plan Time with Patient: Less than 30
[2023-03-02 05:59] LABS: Glucose,Whole Blood 100 mg/dL (70-110)
[2023-03-02] MEDS: INSULIN ASPART (NovoLOG) 100 UNIT/ML VIAL SQ SCH ×4 (05:59→21:24)
[2023-03-02] MEDS: carvediloL 6.25 MG TAB PO SCH ×2 (06:07→17:33)
[2023-03-02] MEDS: CEFEPIME 2 GM in SODIUM CHLORIDE 0.9% 100 ML IVPB SCH ×2 (06:07→17:33)
[2023-03-02 06:33] LABS: African American GFR (CKD) 62 (>60 ml/min/1.73 sqM); Anion Gap 6 mmol/L; Blood Urea Nitrogen 29 mg/dL (9-20); Calcium 8.3 mg/dL (8.4-10.2); Carbon Dioxide 28 mmol/L (22-30); Chloride 104 mmol/L (98-107); Glucose 102 mg/dL (74-99); Non-African American GFR(CKD) 54 (>60 ml/min/1.73 sqM); Potassium 4.2 mmol/L (3.5-5.1); Sodium 138 mmol/L (137-145)
[2023-03-02] MEDS: IPRATROPIUM-ALBUTEROL 3 ML NEB INHALATION SCH ×3 (08:09→20:05)
[2023-03-02] MEDS: TESTOSTERONE TOPICAL SCH (08:48)
[2023-03-02] MEDS: VITAMIN B12 100 MCG PO SCH (08:48)
[2023-03-02] MEDS: APIXABAN 5 MG TAB PO SCH ×2 (08:54→21:24)
[2023-03-02] MEDS: FLUoxetine HCL 20 MG CAP PO SCH (08:54)
[2023-03-02] MEDS: TAMSULOSIN 0.4 MG CAP.ER.24H PO SCH (08:54)
[2023-03-02] MEDS: CHOLECALCIFEROL 25 MCG (1000 IU) TABLET PO SCH (08:54)
[2023-03-02 12:05] LABS: Glucose,Whole Blood 130 mg/dL (70-110)
--- NOTE | 2023-03-02 17:10 | P.PN ---
Subjective Progress Note Date: 03/02/23 Hospital course: patient is 68-year-old gentleman with past medical history significant for atrial fibrillation, diabetes mellitus type 2, hyperlipidemia, hypertension, obstructive sleep apnea, basal cell carcinoma, depression Who presented to The hospital because of hallucinations. Patient was discharged on 01/29/2023 with venous stasis ulcer of the right lower extremity. Was then seen by Dr. Roblero from ID. Was discharged on Keflex. Patient has a nurse that visits 73 times a week. Also dozes wound care on the right lower extremity. Also gets physical therapy. Patient presented with increased redness of the right leg. Some increased swelling. Has some chronic pain. Some drainage. Has been tolerating his diet. Otherwise lives alone. 02/25/2023: Patient status post debridement the right leg by Dr. Rodriguez vascular. Wounds clean presumptive MRSA. IV vancomycin. Tolerating diet. No fever no nausea vomiting. 02/26/2023: Wound cultures still preliminary showing MRSA. Pain control. No fever no chills. IV vancomycin. Further surgical intervention as per Dr. Rodriguez. 02/27/2023: Wound cultures are not finalized. Started on IV cefepime and IV vancomycin to continue. Swelling of lower extremity. Start IV Lasix. Eating well. Discussed with ID. 02/28/2023: Patient IV cefepime. Vancomycin. Creatinine did call up to 1.49. Pharmacy is following the dose. Discussed with ID. He'll follow creatinine tomorrow. Oral intake good. Patient will be going home eventually. Wound cultures also growing Enterobacter cloacae in addition to MRSA. Ultrasound negative for right leg DVT. Stop IV Lasix. 03/01/2023 Patient remains on the medical floor resting in bed. He complaints of left heel pain and recommending pressure off loading boots bilaterally patient remains mostly bedrest at this time. WHITNEY wraps in place bilateral lower extremities. He continues on IV cefepime and IV daptomycin with wound cultures of the left leg showing klebsiella pneumoniae and MRSA. ID following closely. IV lasix has been discontinued and creatinine improved to 1.31. 03/02/2023 Remains on the medical floor resting in bed. He continues on antibiotics with cefepime and daptomycin for the right lower extremity cellulitis which cultures are growing MRSA and Klebsiella. His renal function remained stable with creatinine today 1.34. No acute complaints overnight. He remains off lasix. Review of Systems Constitutional: Denied any fatigue denied any fever. Cardio vascular: denied any chest pain, palpitations Gastrointestinal: denied any nausea, vomiting, diarrhea Pulmonary: Denied any shortness of breath cough Neurologic denied any new focal deficits All inpatient medications were reviewed and appropriate changes in these medications as dictated in the interval history and assessment and plan. PHYSICAL EXAMINATION: GENERAL: The patient is alert and oriented x3, not in any acute distress. Well developed, well nourished. Obese. HEENT: Pupils are round and equally reacting to light. EOMI. No scleral icterus. No conjunctival pallor. Normocephalic, atraumatic. No pharyngeal erythema. No thyromegaly. CARDIOVASCULAR: S1 and S2 present. No murmurs, rubs, or gallops. PULMONARY: Chest is clear to auscultation, no wheezing or crackles. ABDOMEN: Soft, nontender, nondistended, normoactive bowel sounds. No palpable organomegaly. MUSCULOSKELETAL: No joint swelling or deformity. EXTREMITIES: No cyanosis, clubbing Lower extremity edema bilaterally. NEUROLOGICAL: Gross neurological examination did not reveal any focal deficits. Generalized weakness. SKIN: No rashes. Dressings intact Assessment Acute on chronic right lower extremity cellulitis with chronic venous stasis ulcer. Culture showing MRSA and klebsiella Acute kidney injury likely prerenal off IV lasix Paroxysmal atrial fibrillation on anticoagulation Diabetes Mellitus type 2 Moderate pulmonary hypertension Severe aortic stenosis Hyperlipidemia Morbid obesity Sleep apnea does not tolerate CPAP mask Chronic medical disability and gait dysfunction GI prophylaxis DVT prophylaxis Full Code Plan Patient to continue on IV antibiotics with plans to DC home with homecare and [facility] infusion on discharge. ID following closely. IV lasix remains on hold, creatinine stable will recommend to follow up labs in again in AM. The impression and plan of care has been dictated by Dayanara Vences Nurse Practitioner as directed. Dr. Brea MD I have performed a history and physical examination and medical decision making of this patient, discussed the same with the dictator, and agree with the dictators assessment and plan as written, documented as a scribe. Based on total visit time, I have performed more than 50% of this visit. Objective - Vital Signs Vital signs: Vital Signs Temp 97.7 F 03/02/23 14:00 Pulse 72 03/02/23 14:00 Resp 18 03/02/23 14:00 BP 138/54 03/02/23 14:00 Pulse Ox 96 03/02/23 14:00 FiO2 Intake & Output 03/01/23 03/02/23 03/02/23 18:59 06:59 18:59 Other: # Voids 1 2 2 - Labs CBC & Chem 7: 03/01/23 08:54 03/02/23 05:33 Labs: Abnormal Lab Results - Last 24 Hours (Table) 03/01/23 03/01/23 03/02/23 Range/Units 17:09 20:52 05:33 BUN 29 H (9-20) mg/dL Creatinine 1.34 H (0.66-1.25) mg/dL Glucose 102 H (74-99) mg/dL POC Glucose (mg/dL) 194 H 220 H (70-110) mg/dL Calcium 8.3 L (8.4-10.2) mg/dL 03/02/23 Range/Units 12:04 BUN (9-20) mg/dL Creatinine (0.66-1.25) mg/dL Glucose (74-99) mg/dL POC Glucose (mg/dL) 130 H (70-110) mg/dL Calcium (8.4-10.2) mg/dL Microbiology - Last 24 Hours (Table) 02/24/23 16:34 Gram Stain - Final Leg - Right Tissue Culture - Final Methicillin resist S. aureus Klebsiella pneumoniae Assessment and Plan Time with Patient: Less than 30
[2023-03-02 17:31] LABS: Glucose,Whole Blood 287 mg/dL (70-110)
--- NOTE | 2023-03-02 18:00 | P.PN ---
Subjective Progress Note Date: 03/01/23 Principal diagnosis: R leg wound and cellulitis Patient is a 68-year old male with multiple comorbidities presenting to the hospital with increasing swelling redness and drainage of the right lower extremity patient has been diagnosed with infected wound and cellulitis status post debridement by vascular surgery and deep cultures On today's evaluation that is 03/01/2023 the patient continues to be afebrile, the patient is breathing comfortably on room air , the patient denies chest pain shortness with a cough and abdominal pain or worsening pain to the right lower extremity. Patient white count normal 7.79, patient creatinine which is slightly down to 1.31 from yesterday 1.49, local cultures grew MRSA and Enterobacter Objective - Vital Signs Vital signs: Vital Signs Temp 97.7 F 03/01/23 08:00 Pulse 75 03/01/23 08:22 Resp 18 03/01/23 08:00 BP 149/70 03/01/23 08:00 Pulse Ox 98 03/01/23 08:00 FiO2 Intake & Output 02/28/23 03/01/23 03/01/23 18:59 06:59 18:59 Intake Total 600 Balance 600 Weight 138.346 kg Intake: Intake, IV Titration 600 Amount Cefepime 2 gm In Sodium 100 Chloride 0.9% 100 ml @ 25 mls/hr IVPB Q12H [facility] Rx# :[id number] Vancomycin 2,000 mg In 500 Sodium Chloride 0.9% 500 ml 500 ml @ 167 mls/hr IVPB Q24H [facility] Rx#: [id number] Other: Voiding Method Toilet - Exam GENERAL DESCRIPTION: Elderly male lying in bed in no distress RESPIRATORY SYSTEM: Unlabored breathing , decreased breath sounds at bases HEART: S1 S2 regular rate and rhythm ,no loud murmurs ABDOMEN: Soft , no tenderness EXTREMITIES: Right lower extremity wound base did have minimal slough. Surrounding redness has improved however the patient has significant swelling especially to the thigh area with blister formation - Labs CBC & Chem 7: 03/01/23 08:54 03/02/23 05:33 Labs: Abnormal Lab Results - Last 24 Hours (Table) 02/28/23 02/28/23 02/28/23 Range/Units 12:04 17:11 20:38 ABG pO2 (83-108) mmHg ABG HCO3 (21-25) mmol/L ABG Total CO2 (19-24) mmol/L ABG O2 Saturation (94-97) % BUN (9-20) mg/dL Creatinine (0.66-1.25) mg/dL POC Glucose (mg/dL) 192 H 157 H 238 H (70-110) mg/dL C-Reactive Protein (<1.0) mg/dL Total Protein (6.3-8.2) g/dL Albumin (3.5-5.0) g/dL 02/28/23 03/01/23 Range/Units 21:23 08:54 ABG pO2 67 L (83-108) mmHg ABG HCO3 27 H (21-25) mmol/L ABG Total CO2 29 H (19-24) mmol/L ABG O2 Saturation 93.6 L (94-97) % BUN 28 H (9-20) mg/dL Creatinine 1.31 H (0.66-1.25) mg/dL POC Glucose (mg/dL) (70-110) mg/dL C-Reactive Protein 4.4 H (<1.0) mg/dL Total Protein 5.6 L (6.3-8.2) g/dL Albumin 2.8 L (3.5-5.0) g/dL Microbiology - Last 24 Hours (Table) 02/24/23 16:34 Gram Stain - Preliminary Leg - Right Tissue Culture - Preliminary Klebsiella pneumoniae Methicillin resist S. aureus 02/23/23 18:25 Blood Culture Gram Stain - Final Blood Blood Culture - Preliminary Coagulase Negative Staph 02/24/23 11:50 Anaerobic Culture - Final Leg - Right 02/24/23 11:50 Anaerobic Culture - Final Foot - Right 02/24/23 11:50 Gram Stain - Preliminary Foot - Right Wound Culture - Preliminary Methicillin resist S. aureus Gram Neg Bacilli 02/24/23 11:50 Gram Stain - Final Leg - Right Wound Culture - Final Methicillin resist S. aureus Enterobacter cloacae Assessment and Plan (1) Leg wound, right Current Visit: Yes Status: Acute Code(s): S81.801A - UNSPECIFIED OPEN WOUND, RIGHT LOWER LEG, INITIAL ENCOUNTER SNOMED Code(s): 062118592 (2) Cellulitis of right leg Current Visit: No Status: Acute Code(s): L03.115 - CELLULITIS OF RIGHT LOWER LIMB SNOMED Code(s): 024871809 Plan: 1patient with acute right lower extremity venous stasis ulcer and secondary cellulitis wound base did have some slough tissue and the patient also noted to have some purulent drainage from the wound on the dorsum aspect of the right foot will need to cover for the gram-positive skin deniz to the likely pathogen 2-penicillin allergy that will limit the number of antibiotics safe to use 3-Patient is s/p surgical debridement and deep cultures , Cultures are currently growing MRSA and Enterobacter. 4positive blood culture with staph epi likely skin contamination. 5with worsening of his kidney function we will discontinue vancomycin and start the patient on daptomycin continue with cefepime Dictation was produced using Dr[employer] dictation software. please excuse any grammatical, word or spelling errors. Time with Patient: Less than 30
--- NOTE | 2023-03-02 18:02 | P.PN ---
Subjective Progress Note Date: 03/02/23 Principal diagnosis: R leg wound and cellulitis Patient is a 68-year old male with multiple comorbidities presenting to the hospital with increasing swelling redness and drainage of the right lower extremity patient has been diagnosed with infected wound and cellulitis status post debridement by vascular surgery and deep cultures On today's evaluation that is 03/02/2023 the patient remains to be afebrile, the patient is breathing comfortably on room air , the patient denies chest pain shortness breath and no significant cough , the patient denies abdominal pain overall swelling redness to the lower extremity has decreased in intensity Patient white count normal 7.79 as of yesterday, patient creatinine is 1.34 yesterday reading was 1.31, local cultures grew MRSA and Enterobacter Objective - Vital Signs Vital signs: Vital Signs Temp 97.7 F 03/02/23 14:00 Pulse 72 03/02/23 14:00 Resp 18 03/02/23 14:00 BP 138/54 03/02/23 14:00 Pulse Ox 96 03/02/23 14:00 FiO2 Intake & Output 03/01/23 03/02/23 03/02/23 18:59 06:59 18:59 Other: # Voids 1 2 2 - Exam GENERAL DESCRIPTION: Elderly male lying in bed in no distress RESPIRATORY SYSTEM: Unlabored breathing , decreased breath sounds at bases HEART: S1 S2 regular rate and rhythm ,no loud murmurs ABDOMEN: Soft , no tenderness EXTREMITIES: Right lower extremity wound base did have minimal slough. Surrounding redness has improved however the patient has significant swelling especially to the thigh area with blister formation - Labs CBC & Chem 7: 03/01/23 08:54 03/02/23 05:33 Labs: Abnormal Lab Results - Last 24 Hours (Table) 03/01/23 03/01/23 03/02/23 Range/Units 17:09 20:52 05:33 BUN 29 H (9-20) mg/dL Creatinine 1.34 H (0.66-1.25) mg/dL Glucose 102 H (74-99) mg/dL POC Glucose (mg/dL) 194 H 220 H (70-110) mg/dL Calcium 8.3 L (8.4-10.2) mg/dL 03/02/23 Range/Units 12:04 BUN (9-20) mg/dL Creatinine (0.66-1.25) mg/dL Glucose (74-99) mg/dL POC Glucose (mg/dL) 130 H (70-110) mg/dL Calcium (8.4-10.2) mg/dL Microbiology - Last 24 Hours (Table) 02/24/23 16:34 Gram Stain - Final Leg - Right Tissue Culture - Final Methicillin resist S. aureus Klebsiella pneumoniae Assessment and Plan (1) Leg wound, right Current Visit: Yes Status: Acute Code(s): S81.801A - UNSPECIFIED OPEN WOUND, RIGHT LOWER LEG, INITIAL ENCOUNTER SNOMED Code(s): 013527708 (2) Cellulitis of right leg Current Visit: No Status: Acute Code(s): L03.115 - CELLULITIS OF RIGHT LOWER LIMB SNOMED Code(s): 965963848 Plan: 1patient with acute right lower extremity venous stasis ulcer and secondary cellulitis wound base did have some slough tissue and the patient also noted to have some purulent drainage from the wound on the dorsum aspect of the right foot will need to cover for the gram-positive skin deniz to the likely pathogen 2-penicillin allergy that will limit the number of antibiotics safe to use 3-Patient is s/p surgical debridement and deep cultures , Cultures are currently growing MRSA and Enterobacter. 4positive blood culture with staph epi likely skin contamination. 5with worsening of his kidney function patient was started on daptomycin which will be continued along with cefepime, waiting for normalization of his kidney function and hopefully finishing therapy with oral Cipro and Zyvox Dictation was produced using [employer] dictation software. please excuse any grammatical, word or spelling errors. Time with Patient: Less than 30
[2023-03-02 21:06] LABS: Glucose,Whole Blood 210 mg/dL (70-110)
[2023-03-02] MEDS: OLANZapine 2.5 MG TAB PO SCH (21:24)
[2023-03-02] MEDS: INSULIN DETEMIR (LEVEMIR) 100 UNIT/ML SYR SQ SCH (21:24)
[2023-03-03 03:31] VITALS: RESP 16
[2023-03-03] MEDS: CEFEPIME 2 GM in SODIUM CHLORIDE 0.9% 100 ML IVPB SCH (05:48)
[2023-03-03 06:19] LABS: Glucose,Whole Blood 100 mg/dL (70-110)
[2023-03-03] MEDS: INSULIN ASPART (NovoLOG) 100 UNIT/ML VIAL SQ SCH ×2 (06:20→13:39)
[2023-03-03] MEDS: carvediloL 6.25 MG TAB PO SCH (06:36)
[2023-03-03 08:47] VITALS: TEMP 98.1
[2023-03-03] MEDS: IPRATROPIUM-ALBUTEROL 3 ML NEB INHALATION SCH ×2 (09:09→12:23)
[2023-03-03] MEDS: TESTOSTERONE TOPICAL SCH (09:35)
[2023-03-03] MEDS: VITAMIN B12 100 MCG PO SCH (09:35)
[2023-03-03] MEDS: APIXABAN 5 MG TAB PO SCH (09:38)
[2023-03-03] MEDS: FLUoxetine HCL 20 MG CAP PO SCH (09:38)
[2023-03-03] MEDS: CHOLECALCIFEROL 25 MCG (1000 IU) TABLET PO SCH (09:38)
[2023-03-03] MEDS: TAMSULOSIN 0.4 MG CAP.ER.24H PO SCH (09:38)
[2023-03-03 11:18] LABS: Blood Urea Nitrogen 26.6 mg/dL (9.0-27.0); Calcium 8.8 mg/dL (8.7-10.3); Carbon Dioxide 27.6 mmol/L (21.6-31.8); Chloride 105 mmol/L (96-109); Glucose 103 mg/dL (70-110); Potassium 4.2 mmol/L (3.5-5.5); Sodium 140 mmol/L (135-145)
[2023-03-03 12:43] LABS: Glucose,Whole Blood 142 mg/dL (70-110)
[2023-03-03 16:01] VITALS: BP 138/75; PULSE 72
--- NOTE | 2023-03-03 22:16 | P.DS ---
Providers Date of admission: 02/23/23 17:37 Expected date of discharge: 03/03/23 Attending physician: Catalino Banks Consults: 02/23/23 17:37 Consult Physician Routine Consulting Provider: Ander Davila Consult Reason/Comments: leg wound Do you want consulting provider notified?: Yes 02/24/23 10:04 Consult Physician Routine Consulting Provider: Hakan Gamez Consult Reason/Comments: R leg wound Do you want consulting provider notified?: Yes 02/28/23 17:11 Consult Physician Routine Consulting Provider: Teofilo Blandon Consult Reason/Comments: possible sleep apnea prior use of cpap now confused Do you want consulting provider notified?: Yes Primary care physician: Emmie Posadas Hospital Course: Chief Complaint: Right leg wound Hospital course: patient is 68-year-old gentleman with past medical history significant for atrial fibrillation, diabetes mellitus type 2, hyperlipidemia, hypertension, obstructive sleep apnea, basal cell carcinoma, depression Who presented to The hospital because of hallucinations. Patient was discharged on 01/29/2023 with venous stasis ulcer of the right lower extremity. Was then seen by Dr. Roblero from ID. Was discharged on Keflex. Patient has a nurse that visits 73 times a week. Also dozes wound care on the right lower extremity. Also gets physical therapy. Patient presented with increased redness of the right leg. Some increased swelling. Has some chronic pain. Some drainage. Has been tolerating his diet. Otherwise lives alone. 02/25/2023: Patient status post debridement the right leg by Dr. Rodriguez vascular. Wounds clean presumptive MRSA. IV vancomycin. Tolerating diet. No fever no nausea vomiting. 02/26/2023: Wound cultures still preliminary showing MRSA. Pain control. No fever no chills. IV vancomycin. Further surgical intervention as per Dr. Rodriguez. 02/27/2023: Wound cultures are not finalized. Started on IV cefepime and IV vancomycin to continue. Swelling of lower extremity. Start IV Lasix. Eating well. Discussed with ID. 02/28/2023: Patient IV cefepime. Vancomycin. Creatinine did call up to 1.49. Pharmacy is following the dose. Discussed with ID. He'll follow creatinine tomorrow. Oral intake good. Patient will be going home eventually. Wound cultures also growing Enterobacter cloacae in addition to MRSA. Ultrasound negative for right leg DVT. Stop IV Lasix. 03/01/2023 Patient remains on the medical floor resting in bed. He complaints of left heel pain and recommending pressure off loading boots bilaterally patient remains mostly bedrest at this time. WHITNEY wraps in place bilateral lower extremities. He continues on IV cefepime and IV daptomycin with wound cultures of the left leg showing klebsiella pneumoniae and MRSA. ID following closely. IV lasix has been discontinued and creatinine improved to 1.31. 03/02/2023 Remains on the medical floor resting in bed. He continues on antibiotics with cefepime and daptomycin for the right lower extremity cellulitis which cultures are growing MRSA and Klebsiella. His renal function remained stable with creatinine today 1.34. No acute complaints overnight. He remains off lasix. 03/03/2023: Sitting edge of bed. Doing well. Patient has venous insufficiency of the right leg. Not really fluid overload. We'll cut back the dose of Lasix outpatient. Patient to have a BMP checked next 4 days. Patient being discharged on Zyvox and ciprofloxacin per ID. Patient will follow up with Dr. Rodriguez. Discussed with the patient. Questions answered. Discharge statement. Past medical history to include: Atrial fibrillation, diabetes, hypertension, hyperlipidemia, obstructive sleep apnea, basal cell carcinoma, depression, Social history: Lives alone. Does get home nurse and physical therapy. Denies smoking, alcohol. Physical examination: VITAL SIGNS: 98.1, 72, 16, 130/75, 97% room air GENERAL: Sitting At the edge of the bed, comfortable EYES: Pupils equal. Conjunctiva normal. HEENT: External appearance of nose and ears normal, oral cavity grossly normal. NECK: JVD not raised; masses not palpable. HEART: First and second heart sounds are normal; edema present LUNGS: Respiratory rate normal; clear to auscultation. ABDOMEN: Soft, distended, nontender, liver spleen not palpable, no masses palpable. PSYCH: Alert and oriented x3; mood and affect normal. MUSCULOSKELETAL:No Clubbing/cyanosis;muscles-grossly intact EXTREMITIES: Dressing over right lower extremity INVESTIGATIONS, reviewed in the clinical context: Wound culture: MRSA. Klebsiella pneumoniae. Enterobacter cloacae. March 03: Potassium 4.2 crit and 1.4 February 28 dose: White count 7.9 hemoglobin 11.2 platelets 278 potassium 4.4 BUN 30 creatinine 1.49 02/25/2023: Potassium 4 creatinine 0.81 Right lower extremity wound culture: MRSA. Enterobacter cloacae. White count 8.5 hemoglobin 11.7 platelets 247 sodium 137 potassium 4.1 BUN 41 and creatinine 1.16 CRP 4.2 X-ray right foot: No evidence of fracture or any evidence of any osseous erosions. Soft tissue swelling. Previous studies 2-D echocardiogram [December 2022]: Severe aortic stenosis. Moderate pulmonary hypertension. EF 55-60%. Assessment and plan: -Acute on chronic right lower extremity cellulitis, with venous ulcer with worsening infection: MRSA and Enterobacter cloacae. IV vancomycin. Status post wound debridement by Dr. Dr. Rodriguez / vascular surgery. IV cefepime Discharged on Zyvox 600 mg every 12 for 5 days. Ciprofloxacin 5 mg every 12 for 10 days. -Acute kidney injury, ATN, could be drug induced. Also on Lasix.: Improved Follow labs outpatient. -Chronic gait dysfunction. Multiple medical problems. Uses walker at baseline -Paroxysmal atrial fibrillation currently normal sinus rhythm Coreg. Eliquis -Diabetes mellitus type 2 , chronically on insulin Follow Accu-Cheks -Secondary moderate pulmonary hypertension -Severe aortic stenosis: Does follow with cardiology -Essential Hypertension Coreg to 12.5 by mouth twice a day. -Hyperlipidemia Lipitor 10 mg daily -Morbid obesity with BMI of 40.2 Weight loss measures -Obstructive sleep apnea and does not use CPAP as he cannot tolerate the mask -Depression Zyprexa. Prozac. -Full code Disposition: Home Labs: CBC, BMP: 5 days Plan - Discharge Summary Discharge Rx Participant: No New Discharge Prescriptions: New Linezolid [Zyvox] 600 mg PO Q12H 5 Days #10 tab carvediloL [Coreg] 12.5 mg PO BID #60 tab Ciprofloxacin HCl [Cipro] 500 mg PO Q12HR 10 Days #20 tab Continue Apixaban [Eliquis] 5 mg PO BID FLUoxetine HCL [PROzac] 20 mg PO DAILY Atorvastatin [Lipitor] 10 mg PO DAILY tab Vitamin B-12 100mcg 1 tab PO DAILY Tamsulosin HCl [Flomax] 0.4 mg PO DAILY Acetaminophen Tab [Tylenol] 500 mg PO Q6HR PRN PRN Reason: Pain OLANZapine [ZyPREXA] 2.5 mg PO HS tab Ipratropium-Albuterol Nebulize [Duoneb 0.5 mg-3 mg/3 ml Soln] 3 ml INHALATION RT-TID Insulin Lispro [humaLOG Kwikpen] See Protocol SQ TID-W/MEALS Insulin Glargine,Hum.rec.anlog [Lantus Solostar Pen] 30 units SQ HS Ferrous Sulfate [Iron (65 MG Elemental)] 325 mg PO HS Cholecalciferol [Vitamin D3 (25 Mcg = 1000 Iu)] 25 mcg PO DAILY Testosterone [Androgel 1.62% Gel Packet] 2 packet TOPICAL DAILY traMADol HCL 50 mg PO Q6H PRN #12 tab PRN Reason: Pain Changed Furosemide [Lasix] 40 mg PO Q48H #0 tab Discontinued carvediloL [Coreg] 25 mg PO BID Discharge Medication List Apixaban [Eliquis] 5 mg PO BID 04/11/17 [History] Cholecalciferol [Vitamin D3 (25 Mcg = 1000 Iu)] 25 mcg PO DAILY 12/12/22 [History] FLUoxetine HCL [PROzac] 20 mg PO DAILY 12/12/22 [History] Ferrous Sulfate [Iron (65 MG Elemental)] 325 mg PO HS 12/12/22 [History] Insulin Glargine,Hum.rec.anlog [Lantus Solostar Pen] 30 units SQ HS 12/12/22 [History] Insulin Lispro [humaLOG Kwikpen] See Protocol SQ TID-W/MEALS 12/12/22 [History] Testosterone [Androgel 1.62% Gel Packet] 2 packet TOPICAL DAILY 12/12/22 [History] Atorvastatin [Lipitor] 10 mg PO DAILY tab 12/17/22 [Rx] Acetaminophen Tab [Tylenol] 500 mg PO Q6HR PRN 01/02/23 [History] Tamsulosin HCl [Flomax] 0.4 mg PO DAILY 01/02/23 [History] Vitamin B-12 100mcg 1 tab PO DAILY 01/02/23 [History] OLANZapine [ZyPREXA] 2.5 mg PO HS tab 01/29/23 [Rx] traMADol HCL 50 mg PO Q6H PRN #12 tab 01/29/23 [Rx] Ipratropium-Albuterol Nebulize [Duoneb 0.5 mg-3 mg/3 ml Soln] 3 ml INHALATION RT-TID 02/23/23 [History] Ciprofloxacin HCl [Cipro] 500 mg PO Q12HR 10 Days #20 tab 03/03/23 [Rx] Furosemide [Lasix] 40 mg PO Q48H #0 tab 03/03/23 [Rx] Linezolid [Zyvox] 600 mg PO Q12H 5 Days #10 tab 03/03/23 [Rx] carvediloL [Coreg] 12.5 mg PO BID #60 tab 03/03/23 [Rx] Follow up Appointment(s)/Referral(s): Emmie Posadas DO [Primary Care Provider] - 1-2 days [facility] [NON-STAFF] - As Needed Hakan Gamez MD [STAFF PHYSICIAN] - 03/12/23 11:00 am Patient Instructions/Handouts: Cellulitis (GEN) Activity/Diet/Wound Care/Special Instructions: fluid restrict 2000 cc/day wound care per dr gamez
--- NOTE | 2023-03-04 15:03 | CDI ---
Documentation Clarification Form Date: 02/27/2023 06:19:00 PM From: Nicolle Pugh Admit Date: 02/23/2023 05:37:00 PM Patient Name: Lex Maldonado Visit Number: [id number] Discharge Date: 03/03/2023 04:27:00 PM ATTENTION: The Clinical Documentation Specialists (CDI) and [facility] Coding Staff appreciate your assistance in clarifying documentation. Please respond to the clarification below the line at the bottom and electronically sign. The CDI & [facility] Coding staff will review the response and follow-up if needed. Please note: Queries are made part of the Legal Health Record. If you have any questions, please contact the author of this message via ITS. Dr. Hakan Ortega debridement is documented in the procedure note on 02/24/23. Additional clarification regarding the procedure is requested. History/Risk Factors: Atrial Fibrillation, Cancer, Diabetes Mellitus, Hyperlipidemia, Hypertension, Sleep Apnea/CPAP/BIPAP Clinical Indicators: Preoperative diagnoses is infected venous ulcer right lower extremity lateral aspect measurement is 7 x 5 cm, right foot dorsum aspect measurement is 1.2 cm right foot second toe 2 x 1 cm Treatment: Debridement of the wound on the lateral aspect of the right foot and dorsum and right foot and second toe. Aquacel silver and pressure dressing applied to right leg elevation change of dressing every 48 hours. Please clarify the type of procedure performed and what was removed on right second toe. [ x ] Excisional debridement (the removal of necrotic, devitalized tissue or slough by means of cutting away of tissue) [ ] Non-excisional debridement (the removal of necrotic, devitalized tissue or slough by means of flushing, brushing, or washing. (Irrigation) [ ] Other; please specify [ ] Unable to determine. Five elements required for accurate and compliant documentation of a debridement: Technique used (e.g., excisional, excised, cutting, brushing, jet lavage etc.) Instrument(s) used (e.g., scalpel, curette, etc.) Nature of the tissue removed (e.g., necrotic, devitalized tissues, non-viable tissue, etc.) Appearance and size of the wound (e.g., down to fresh bleeding tissue, 7cm x 10cm, etc.) Depth of the debridement* (e.g., skin, subcutaneous tissue, fascia, muscle, bone, etc.) (Template Last Revised: September 2020) MTDD
--- NOTE | 2023-03-05 07:53 | CDI ---
Documentation Clarification Form Date: 03/05/23 From: Josefina Dc Admit Date: 02/23/2023 05:37:00 PM Patient Name: Lex Maldonado Visit Number: [id number] Discharge Date: 03/03/2023 04:27:00 PM ATTENTION: The Clinical Documentation Specialists (CDI) and [facility] Coding Staff appreciate your assistance in clarifying documentation. Please respond to the clarification below the line at the bottom and electronically sign. The CDI & [facility] Coding staff will review the response and follow-up if needed. Please note: Queries are made part of the Legal Health Record. If you have any questions, please contact the author of this message via ITS. Dr. Catalino Banks, Cellulitis is documented in the H&P, consults, progress notes and discharge summary. Additional clarification regarding the type of cellulitis is requested. History/risk factors: T2DM, morbid obesity w BMI of 40.2, PAF, HLD Clinical Indicators: Venous stasis ulcer of right lower extremity. Patient presented with increased redness of the right leg. Some increasedswelling. Has somechronic pain. Somedrainage. Treatment: IV Vancomyin, IV Cefpime, IV Daptomycin, debridement Please clarify the etiology of the cellulitis, if known: [ + ] Cellulitis is a diabetic skin complication [ ] Cellulitis is not a diabetic skin complication [ ] Other, please specify: [ ] Unable to determine MTDD
--- NOTE | 2023-03-07 15:38 | P.PN ---
Subjective Progress Note Date: 02/26/23 Principal diagnosis: R leg wound and cellulitis Patient is a 68-year old male with multiple comorbidities presenting to the hospital with increasing swelling redness and drainage of the right lower extremity patient has been diagnosed with infected wound and cellulitis status post debridement by vascular surgery and deep cultures On today's evaluation that is 02/26/2023 patient remains to be afebrile, the patient is breathing comfortably on room air patient denies having any chest pain or shortness of breath or cough no nausea no vomiting no abdominal pain pain or discomfort to the right lower extremity has slightly decreased intensity. Patient did not have any blood draw today, local cultures are currently growing MRSA blood cultures with coagulase-negative staph Objective - Vital Signs Vital signs: Vital Signs Temp 97.6 F 02/26/23 07:25 Pulse 62 02/26/23 08:46 Resp 16 02/26/23 07:25 BP 130/69 02/26/23 07:25 Pulse Ox 97 02/26/23 07:25 FiO2 Intake & Output 02/25/23 02/26/23 02/26/23 18:59 06:59 18:59 Other: Voiding Method Toilet Toilet Toilet # Voids 1 1 - Exam GENERAL DESCRIPTION: Elderly male lying in bed in no distress RESPIRATORY SYSTEM: Unlabored breathing , decreased breath sounds at bases HEART: S1 S2 regular rate and rhythm ,no loud murmurs ABDOMEN: Soft , no tenderness EXTREMITIES: Right lower extremity is currently dressed no drainage on the dressing - Labs CBC & Chem 7: 02/23/23 12:56 02/27/23 02:30 Labs: Abnormal Lab Results - Last 24 Hours (Table) 02/25/23 02/25/23 02/25/23 Range/Units 12:18 16:57 20:35 POC Glucose (mg/dL) 125 H 217 H 203 H (70-110) mg/dL 02/26/23 Range/Units 05:38 POC Glucose (mg/dL) 120 H (70-110) mg/dL Microbiology - Last 24 Hours (Table) 02/23/23 18:25 Blood Culture - Preliminary Blood 02/24/23 11:50 Gram Stain - Preliminary Leg - Right Wound Culture - Preliminary Presumptive MRSA 02/24/23 11:50 Gram Stain - Preliminary Foot - Right Wound Culture - Preliminary Presumptive MRSA Assessment and Plan (1) Leg wound, right Current Visit: Yes Status: Acute Code(s): S81.801A - UNSPECIFIED OPEN WOUND, RIGHT LOWER LEG, INITIAL ENCOUNTER SNOMED Code(s): 178956270 (2) Cellulitis of right leg Current Visit: No Status: Acute Code(s): L03.115 - CELLULITIS OF RIGHT LOWER LIMB SNOMED Code(s): 619042509 Plan: 1patient with acute right lower extremity venous stasis ulcer and secondary cellulitis wound base did have some slough tissue and the patient also noted to have some purulent drainage from the wound on the dorsum aspect of the right foot will need to cover for the gram-positive skin deniz to the likely pathogen 2-penicillin allergy that will limit the number of antibiotics safe to use 3-Patient is s/p surgical debridement and deep cultures Are currently growing MRSA sensitivities pending blood cultures with coagulase-negative staph likely skin contamination 4-we will continue patient on vancomycin pharmacy to dose while watching his kidney function closely Dictation was produced using [employer] dictation software. please excuse any grammatical, word or spelling errors. Time with Patient: Less than 30
--- NOTE | 2023-03-07 15:38 | P.PN ---
Subjective Progress Note Date: 02/25/23 Principal diagnosis: R leg wound and cellulitis Patient is a 68-year old male with multiple comorbidities presenting to the hospital with increasing swelling redness and drainage of the right lower extremity patient has been diagnosed with infected wound and cellulitis status post debridement by vascular surgery and deep cultures On today's evaluation that is 02/25/2023 the patient is afebrile patient is currently breathing comfortably on room air patient denies having any chest pain or shortness of breath occasional cough no abdominal pain he denies any worsening pain to the right lower extremity. Patient did have a creatinine of 0.81 no CBC was done today local cultures currently growing presumptive MRSA Objective - Vital Signs Vital signs: Vital Signs Temp 97.8 F 02/25/23 07:00 Pulse 68 02/25/23 11:34 Resp 16 02/25/23 07:00 BP 113/66 02/25/23 07:00 Pulse Ox 97 02/25/23 07:00 FiO2 Intake & Output 02/24/23 02/25/23 02/25/23 18:59 06:59 18:59 Intake Total 236 Balance 236 Weight 138.346 kg Intake: Oral 236 Other: Voiding Method Toilet Toilet Toilet # Voids 2 1 - Exam GENERAL DESCRIPTION: Elderly male lying in bed in no distress RESPIRATORY SYSTEM: Unlabored breathing , decreased breath sounds at bases HEART: S1 S2 regular rate and rhythm ,no loud murmurs ABDOMEN: Soft , no tenderness EXTREMITIES: Right lower extremity is currently dressed no drainage on the dressing - Labs CBC & Chem 7: 02/23/23 12:56 02/27/23 02:30 Labs: Abnormal Lab Results - Last 24 Hours (Table) 02/24/23 02/24/23 02/24/23 Range/Units 17:35 17:36 20:02 Carbon Dioxide (22-30) mmol/L Glucose (74-99) mg/dL POC Glucose (mg/dL) >600 H 207 H 215 H (70-110) mg/dL Calcium (8.4-10.2) mg/dL 02/25/23 02/25/23 02/25/23 Range/Units 06:10 06:19 12:18 Carbon Dioxide 31 H (22-30) mmol/L Glucose 122 H (74-99) mg/dL POC Glucose (mg/dL) 118 H 125 H (70-110) mg/dL Calcium 7.9 L (8.4-10.2) mg/dL Microbiology - Last 24 Hours (Table) 02/24/23 11:50 Gram Stain - Preliminary Leg - Right Wound Culture - Preliminary Presumptive MRSA 02/24/23 11:50 Gram Stain - Preliminary Foot - Right Wound Culture - Preliminary Presumptive MRSA 02/23/23 18:25 Blood Culture - Preliminary Blood Assessment and Plan (1) Leg wound, right Current Visit: Yes Status: Acute Code(s): S81.801A - UNSPECIFIED OPEN WOUND, RIGHT LOWER LEG, INITIAL ENCOUNTER SNOMED Code(s): 143990270 (2) Cellulitis of right leg Current Visit: No Status: Acute Code(s): L03.115 - CELLULITIS OF RIGHT LOWER LIMB SNOMED Code(s): 995070038 Plan: 1patient with acute right lower extremity venous stasis ulcer and secondary cellulitis wound base did have some slough tissue and the patient also noted to have some purulent drainage from the wound on the dorsum aspect of the right foot will need to cover for the gram-positive skin deniz to the likely pathogen 2-penicillin allergy that will limit the number of antibiotics safe to use 3-Patient is s/p surgical debridement and deep cultures which will be followed 4-we will continue patient on vancomycin pharmacy to dose while watching his kidney function closely Dictation was produced using [employer] dictation software. please excuse any grammatical, word or spelling errors. Time with Patient: Less than 30
--- NOTE | 2023-03-07 15:38 | P.PN ---
Subjective Progress Note Date: 03/03/23 Principal diagnosis: R leg wound and cellulitis Patient is a 68-year old male with multiple comorbidities presenting to the hospital with increasing swelling redness and drainage of the right lower extremity patient has been diagnosed with infected wound and cellulitis status post debridement by vascular surgery and deep cultures On today's evaluation that is 03/03/2023 the patient continues to be afebrile, the patient is breathing comfortably on room air , the patient denies chest pain shortness breath and no cough or sputum production, the patient denies abdominal pain overall swelling redness to the lower extremity has decreased in intensity, no new symptoms Patient white count normal 7.79 creatinine is 1.4 though reported normal per lab, local cultures grew MRSA and Enterobacter Objective - Vital Signs Vital signs: Vital Signs Temp 98.1 F 03/03/23 08:00 Pulse 68 03/03/23 09:23 Resp 16 03/03/23 08:00 BP 148/75 03/03/23 08:00 Pulse Ox 97 03/03/23 09:09 FiO2 Intake & Output 03/02/23 03/03/23 03/03/23 18:59 06:59 18:59 Intake Total 59 Balance 59 Intake: Oral 59 Other: Voiding Method Toilet # Voids 2 2 - Exam GENERAL DESCRIPTION: Elderly male lying in bed in no distress RESPIRATORY SYSTEM: Unlabored breathing , decreased breath sounds at bases HEART: S1 S2 regular rate and rhythm ,no loud murmurs ABDOMEN: Soft , no tenderness EXTREMITIES: Right lower extremity wound base did have minimal slough. Surrounding swelling redness has has decreased - Labs CBC & Chem 7: 03/01/23 08:54 03/03/23 06:27 Labs: Abnormal Lab Results - Last 24 Hours (Table) 03/02/23 03/02/23 03/02/23 Range/Units 12:04 17:30 21:05 Est GFR (CKD-EPI) (>=60) POC Glucose (mg/dL) 130 H 287 H 210 H (70-110) mg/dL 03/03/23 Range/Units 06:27 Est GFR (CKD-EPI) 54 L (>=60) POC Glucose (mg/dL) (70-110) mg/dL Assessment and Plan (1) Leg wound, right Status: Acute Code(s): S81.801A - UNSPECIFIED OPEN WOUND, RIGHT LOWER LEG, INITIAL ENCOUNTER SNOMED Code(s): 084419644 (2) Cellulitis of right leg Status: Acute Code(s): L03.115 - CELLULITIS OF RIGHT LOWER LIMB SNOMED Code(s): 282534486 Plan: 1patient with acute right lower extremity venous stasis ulcer and secondary cellulitis wound base did have some slough tissue and the patient also noted to have some purulent drainage from the wound on the dorsum aspect of the right foot will need to cover for the gram-positive skin deniz to the likely pathogen 2-penicillin allergy that will limit the number of antibiotics safe to use 3-Patient is s/p surgical debridement and deep cultures , Cultures are currently growing MRSA and Enterobacter. 4positive blood culture with staph epi likely skin contamination. 5patient seemed #clinical improvement and will finish therapy with oral Cipro and Zyvox, admitting team was aware of Zyvox interacting with his SSRI however they were okay with sending the patient on oral Zyvox Dictation was produced using [employer] dictation software. please excuse any gr ammatical, word or spelling errors. Time with Patient: Less than 30
== END 2023-03-03 16:27 | disposition home health service (06) | DRG 623 ==
LOC: EC 11:44 → 6NMEDSUR 17:37
PROVIDERS: ADMIT Hospitalist; ATTEND Hospitalist
PROC: 0JBQ0ZZ Excision of Right Foot Subcutaneous Tissue and Fascia, Open Approach (ICD-10-PCS; principal; 2023-02-26 15:05)
PROC: 05HF33Z Insertion of Infusion Device into Left Cephalic Vein, Percutaneous Approach (ICD-10-PCS; 2023-02-26 15:05)
DX: E11.628 Type 2 diabetes mellitus with other skin complications (principal); L03.115 Cellulitis of right lower limb; L97.819 Non-pressure chronic ulcer of other part of right lower leg with unspecified severity; Z68.41 Body mass index [BMI] 40.0-44.9, adult; R44.3 Hallucinations, unspecified; N17.0 Acute kidney failure with tubular necrosis; I27.20 Pulmonary hypertension, unspecified; I83.018 Varicose veins of right lower extremity with ulcer other part of lower leg; E11.40 Type 2 diabetes mellitus with diabetic neuropathy, unspecified; B95.62 Methicillin resistant Staphylococcus aureus infection as the cause of diseases classified elsewhere; E66.01 Morbid (severe) obesity due to excess calories; I48.0 Paroxysmal atrial fibrillation; Z79.4 Long term (current) use of insulin; E87.70 Fluid overload, unspecified; B96.1 Klebsiella pneumoniae [K. pneumoniae] as the cause of diseases classified elsewhere; I35.0 Nonrheumatic aortic (valve) stenosis; I10 Essential (primary) hypertension; G89.29 Other chronic pain; F32.A Depression, unspecified; R26.9 Unspecified abnormalities of gait and mobility; E78.5 Hyperlipidemia, unspecified; G47.33 Obstructive sleep apnea (adult) (pediatric); Z79.01 Long term (current) use of anticoagulants; Z79.890 Hormone replacement therapy; Z79.899 Other long term (current) drug therapy; Z85.828 Personal history of other malignant neoplasm of skin; Z60.2 Problems related to living alone; Z71.3 Dietary counseling and surveillance; Z88.5 Allergy status to narcotic agent; Z88.0 Allergy status to penicillin; Z88.8 Allergy status to other drugs, medicaments and biological substances
CPT/HCPCS: 36410; 36415; 36600; 76937; 80048; 80053; 80202; 82565; 82805; 83036; 85025; 85610; 85652; 85730; 86140; 87040; 87070; 87075; 87077; 87186; 87205; 94640; 94760; 96365; 99284

== ENCOUNTER 2023-05-04 04:18 | Inpatient (IN) | payer MEDICARE ==
[2023-05-04] MEDS ORDERED: IBUPROFEN IV 800 MG in SODIUM CHLORIDE 0.9% 250 ML IV ONE (05:24)
[2023-05-04] MEDS ORDERED: VANCOMYCIN IV PER PHARMACY 1 EACH MISC MISCELLANE PRN (05:24)
[2023-05-04] MEDS ORDERED: ACETAMINOPHEN IV (For NPO) 1,000 MG in EMPTY BAG 1 BAG IVPB STA (05:24)
[2023-05-04] MEDS ORDERED: SODIUM CHLORIDE 0.9% 1,000 ML IV STA (05:24)
[2023-05-04] MEDS ORDERED: VANCOMYCIN 2,000 MG in SODIUM CHLORIDE 0.9% 500 ML 500 ML IVPB STA (05:30)
--- NOTE | 2023-05-04 05:36 | ED ---
Fever HPI - General Chief Complaint: Fever Stated Complaint: Alt Mental Time Seen by Provider: 05/04/23 04:23 Source: patient, EMS, RN notes reviewed, old records reviewed Mode of arrival: EMS Limitations: no limitations - History of Present Illness Initial Comments: This is a 68-year-old male to the emergency department for evaluation. Patient's moderately unresponsive but sent to the ER today for evaluation of sepsis fever with edema and cellulitis. Patient is a poor historian secondary to current clinical condition. Patient is found a mildly altered and decreased responsiveness MD Complaint: fever, malaise, weakness, other ((A cellulitis) -: days(s) Temperature Source: subjective Context: recent antibiotic use Associated Symptoms: chills, rigors, myalgias Treatments Prior to Arrival: none - Related Data Home Medications Medication Instructions Recorded Confirmed Apixaban [Eliquis] 5 mg PO BID 04/11/17 05/04/23 Cholecalciferol [Vitamin D3 (25 25 mcg PO DAILY 12/12/22 05/04/23 Mcg = 1000 Iu)] Ferrous Sulfate [Iron (65 MG 325 mg PO DAILY 12/12/22 05/04/23 Elemental)] Insulin Glargine,Hum.rec.anlog 30 units SQ HS 12/12/22 05/04/23 [Lantus Solostar Pen] Insulin Lispro [humaLOG Kwikpen] See Protocol SQ TID-W/MEALS 12/12/22 05/04/23 Testosterone [Androgel 1.62% Gel 2 packet TOPICAL DAILY 12/12/22 05/04/23 Packet] Acetaminophen Tab [Tylenol] 500 mg PO Q6HR PRN 01/02/23 05/04/23 Tamsulosin HCl [Flomax] 0.4 mg PO DAILY 01/02/23 05/04/23 Vitamin B-12 100mcg 1 tab PO DAILY 01/02/23 05/04/23 Ipratropium-Albuterol Nebulize 3 ml INHALATION RT-TID 02/23/23 05/04/23 [Duoneb 0.5 mg-3 mg/3 ml Soln] Exenatide Microspheres [Bydureon 2 mg SQ NEVAREZ 04/18/23 05/04/23 Bcise Auto-Injector] Furosemide [Lasix] 40 mg PO DAILY 04/18/23 05/04/23 Potassium Chloride ER [K-Dur 20] 20 meq PO DAILY 04/18/23 05/04/23 Atorvastatin [Lipitor] 10 mg PO HS 05/04/23 05/04/23 Hydrocortisone Cream 1 applic TOPICAL BID 05/04/23 05/04/23 [Hydrocortisone 1% Cream] diphenhydrAMINE [Benadryl] 50 mg PO QID PRN 05/04/23 05/04/23 Previous Rx's Medication Instructions Recorded carvediloL [Coreg] 12.5 mg PO BID #60 tab 03/03/23 Cefepime [Maxipime] 2 gm IVPB Q8HR #1 each 05/07/23 FLUoxetine HCL [PROzac] 40 mg PO DAILY cap 05/07/23 Vancomycin 2,000 mg IVPB Q24H #1 each 05/07/23 Allergies Allergy/AdvReac Type Severity Reaction Status Date / Time famotidine [From Pepcid] Allergy Unknown Verified 05/04/23 12:46 Penicillins Allergy Rash/Hives Verified 05/04/23 12:46 hydrocodone AdvReac Hallucinati Verified 05/04/23 12:46 ons lisinopril [From Prinivil] AdvReac Cough Verified 05/04/23 12:46 Review of Systems ROS Statement: Those systems with pertinent positive or pertinent negative responses have been documented in the HPI. ROS Other: All systems not noted in ROS Statement are negative. Past Medical History Past Medical History: Atrial Fibrillation, Cancer, Diabetes Mellitus, Hyperlipidemia, Hypertension, Sleep Apnea/CPAP/BIPAP Additional Past Medical History / Comment(s): Basal cell carcinoma, Heart murmur History of Any Multi-Drug Resistant Organisms: MRSA Date of last positivie culture/infection: 02/24/23 MDRO Source:: Right Leg Past Surgical History: No Surgical Hx Reported Additional Past Surgical History / Comment(s): Cataract surgery right eye Past Anesthesia/Blood Transfusion Reactions: No Reported Reaction Past Psychological History: Depression Smoking Status: Never smoker Past Alcohol Use History: None Reported Past Drug Use History: None Reported - Past Family History Mother Family Medical History: Diabetes Mellitus General Exam Limitations: altered mental status General appearance: alert, anxious, in distress Head exam: Present: atraumatic, normocephalic, normal inspection Eye exam: Present: normal appearance, PERRL, EOMI. Absent: scleral icterus, conjunctival injection, periorbital swelling ENT exam: Present: normal exam, mucous membranes moist Neck exam: Present: normal inspection. Absent: tenderness, meningismus, lymphadenopathy Respiratory exam: Present: respiratory distress, decreased breath sounds, prolonged expiratory. Absent: wheezes, rales, rhonchi, stridor Cardiovascular Exam: Present: normal rhythm, tachycardia, normal heart sounds. Absent: systolic murmur, diastolic murmur, rubs, gallop, clicks GI/Abdominal exam: Present: soft, normal bowel sounds. Absent: distended, tenderness, guarding, rebound, rigid Extremities exam: Present: normal inspection, full ROM, normal capillary refill. Absent: tenderness, pedal edema, joint swelling, calf tenderness Back exam: Present: normal inspection Neurological exam: Present: alert, oriented X3, CN II-XII intact Psychiatric exam: Present: normal affect, normal mood Skin exam: Present: warm, dry, intact, normal color. Absent: rash Course Vital Signs 05/04/23 05/04/23 05/04/23 04:24 05:21 06:34 Temperature 103.1 F H 99.4 F Pulse Rate 98 98 89 Respiratory 26 H 24 20 Rate Blood Pressure 98/74 111/78 97/51 O2 Sat by Pulse 91 L 95 95 Oximetry 05/04/23 05/04/23 05/04/23 07:41 08:00 08:30 Temperature Pulse Rate 82 80 77 Respiratory 26 H 25 H 25 H Rate Blood Pressure 78/38 78/38 79/40 O2 Sat by Pulse Oximetry 05/04/23 05/04/23 05/04/23 09:00 09:30 10:00 Temperature Pulse Rate 77 78 70 Respiratory 14 7 L 20 Rate Blood Pressure 60/35 88/44 82/53 O2 Sat by Pulse Oximetry 05/04/23 05/04/23 05/04/23 10:30 11:30 13:00 Temperature Pulse Rate 72 73 67 Respiratory 16 19 22 Rate Blood Pressure 75/50 65/34 O2 Sat by Pulse 95 Oximetry 05/04/23 05/04/23 05/04/23 13:16 13:30 13:39 Temperature 98.8 F Pulse Rate 70 67 Respiratory 18 18 Rate Blood Pressure 84/63 101/50 O2 Sat by Pulse 95 97 Oximetry 05/04/23 05/04/23 05/04/23 14:00 14:15 14:27 Temperature Pulse Rate 67 69 66 Respiratory 22 24 Rate Blood Pressure 96/54 66/47 83/53 O2 Sat by Pulse 94 L 94 L 93 L Oximetry 05/04/23 05/04/23 05/04/23 14:30 14:43 15:00 Temperature Pulse Rate 65 66 Respiratory 22 Rate Blood Pressure 65/25 106/59 95/56 O2 Sat by Pulse 94 L 95 Oximetry 05/04/23 05/04/23 15:15 15:50 Temperature 97.9 F Pulse Rate Respiratory Rate Blood Pressure 98/75 O2 Sat by Pulse Oximetry - Reevaluation(s) Reevaluation #1: 05/04/23 07:09 Medical records reviewed Reevaluation #2: 05/04/23 07:09 Patient symptoms unchanged 05/04/23 07:45 blood pressure is labile given fluid bolus based on ideal body weight Reevaluation #3: 05/04/23 07:09 Patient informed results questions answered Reevaluation #4: 05/04/23 07:09 Was pt. sent in by a medical professional or institution (, PA, HEAD OF DATA, urgent care, hospital, or care home...) When possible be specific @ -no Did you speak to anyone other than the patient for history (EMS, parent, family, police, friend...)? What history was obtained from this source @ -no Did you review nursing and triage notes (agree or disagree)? Why? @ -agree Are old charts reviewed (outside hosp., previous admission, EMS record, old EKG, old radiological studies, urgent care reports/EKG's, care home records)? Report findings @ -yes Differential Diagnosis (chest pain, altered mental status, abdominal pain women, abdominal pain men, vaginal bleeding, weakness, fever, dyspnea, syncope, headach e, dizziness, GI bleed, back pain, seizure, CVA, palpatations, mental health, musculoskeletal)? @ -prior EKG interpreted by me (3pts min.). @ -yes X-rays interpreted by me (1pt min.). @ -yes CT interpreted by me (1pt min.). @ -no U/S interpreted by me (1pt. min.). @ -no What testing was considered but not performed or refused? (CT, X-rays, U/S, labs)? Why? @ -none What meds were considered but not given or refused? Why? @ -none Did you discuss the management of the patient with other professionals (professionals i.e. , PA, HEAD OF DATA, lab, RT, psych nurse, social service liaison, enterostomal nurse, teacher, chief operating officer, special education case manager)? Give summary @ -no Was smoking cessation discussed for >3mins.? @ -no Was critical care preformed (if so, how long)? @ -no Were there social determinants of health that impacted care today? How? (Homelessness, low income, unemployed, alcoholism, drug addiction, transp ortation, low edu. Level, literacy, decrease access to med. care, [place] [facility], rehab)? @ -none Was there de-escalation of care discussed even if they declined (Discuss DNR or withdrawal of care, Hospice)? DNR status @ -no What co-morbidities impacted this encounter? (DM, HTN, Smoking, COPD, CAD, Cancer, CVA, ARF, Chemo, Hep., AIDS, mental health diagnosis, sleep apnea, morbid obesity)? @ -none Was patient admitted / discharged? Hospital course, mention meds given and route, prescriptions, significant lab abnormalities, going to OR and other pertinent info. @ - 68 male to the emergency room today for delirium from acute medical condition. Patient does have fever altered mental status lower extremity cellulitis and edema. Patient be admitted for IV antibiotics and symptomatic treatment Admitted Undiagnosed new problem with uncertain prognosis? @ -no Drug Therapy requiring intensive monitoring for toxicity (Heparin, Nitro, Insulin, Cardizem)? @ -no Were any procedures done? @ -no Diagnosis/symptom? @ -Bilateral lower extremity edema cellulitis and fever Acute, or Chronic, or Acute on Chronic? @ -Acute Uncomplicated (without systemic symptoms) or Complicated (systemic symptoms)? @ -Complicated Side effects of treatment? @ -no Exacerbation, Progression, or Severe Exacerbation? @ -exacerbation Poses a threat to life or bodily function? How? (Chest pain, [place], [place], pneumonia, PE, COPD, DKA, ARF, appy, cholecystitis, CVA, Diverticulitis, Homicidal, Suicidal, threat to staff... and all critical care pts) @ -yes with significant sepsis Reevaluation #5: 05/04/23 07:09 Differential Fever: Pneumonia, viral URI, endocarditis, myocarditis, pericarditis, otitis, sinusitis, peritonsillar Abscess, retropharyngeal Abscess, epiglottitis, peritonitis, appendicitis, [place] cystitis, diverticulitis, hepatitis, colitis, UTI, PID, TOA, pyelonephritis, prostatitis, epididymitis, meningitis, encephalitis, pulmonary embolism, CVA, thyroid storm, pancreatitis, adrenal crisis, cavernous sinus thrombosis, this is not meant to be an all-inclusive list. - Consultations Consultation #1: Spoke with alaina who agrees to admit the patient Medical Decision Making - Medical Decision Making 68 male to the emergency room today for delirium from acute medical condition. Patient does have fever altered mental status lower extremity cellulitis and edema. Patient be admitted for IV antibiotics and symptomatic treatment - Lab Data Result diagrams: 05/07/23 06:17 05/07/23 06:17 Lab Results 05/04/23 05/04/23 05/04/23 Range/Units 05:04 05:04 05:04 WBC 14.6 H (3.8-10.6) k/uL RBC 3.48 L (4.30-5.90) m/uL Hgb 10.0 L D (13.0-17.5) gm/dL Hct 31.2 L (39.0-53.0) % MCV 89.6 (80.0-100.0) fL MCH 28.7 (25.0-35.0) pg MCHC 32.1 (31.0-37.0) g/dL RDW 15.7 H (11.5-15.5) % Plt Count 459 H (150-450) k/uL MPV 7.6 Neutrophils % 97 % Lymphocytes % 1 % Monocytes % 1 % Eosinophils % 0 % Basophils % 0 % Neutrophils # 14.1 H (1.3-7.7) k/uL Lymphocytes # 0.2 L (1.0-4.8) k/uL Monocytes # 0.1 (0-1.0) k/uL Eosinophils # 0.1 (0-0.7) k/uL Basophils # 0.0 (0-0.2) k/uL Manual Slide Review Performed PT (9.0-12.0) sec INR (<1.2) APTT (22.0-30.0) sec Sodium 139 (137-145) mmol/L Potassium 5.6 H (3.5-5.1) mmol/L Chloride 103 (98-107) mmol/L Carbon Dioxide 29 (22-30) mmol/L Anion Gap 7 mmol/L BUN 43 H (9-20) mg/dL Creatinine 1.15 (0.66-1.25) mg/dL Est GFR (CKD-EPI)AfAm 75 (>60 ml/min/1.73 sqM) Est GFR (CKD-EPI)NonAf 65 (>60 ml/min/1.73 sqM) Glucose 113 H (74-99) mg/dL Lactic Ac Sepsis Rflx Plasma Lactic Acid Tho 2.6 H* (0.7-2.0) mmol/L Calcium 8.6 (8.4-10.2) mg/dL Phosphorus 1.6 L (2.5-4.5) mg/dL Magnesium 1.5 L (1.6-2.3) mg/dL Total Bilirubin 0.7 (0.2-1.3) mg/dL AST 53 (17-59) U/L ALT 29 (4-49) U/L Alkaline Phosphatase 121 (38-126) U/L Troponin I (0.000-0.034) ng/mL Total Protein 6.5 (6.3-8.2) g/dL Albumin 3.3 L (3.5-5.0) g/dL Influenza Type A (PCR) (Not Detectd) Influenza Type B (PCR) (Not Detectd) RSV (PCR) (Not Detectd) SARS-CoV-2 (PCR) (Not Detectd) 05/04/23 05/04/23 05/04/23 Range/Units 05:04 05:04 05:50 WBC (3.8-10.6) k/uL RBC (4.30-5.90) m/uL Hgb (13.0-17.5) gm/dL Hct (39.0-53.0) % MCV (80.0-100.0) fL MCH (25.0-35.0) pg MCHC (31.0-37.0) g/dL RDW (11.5-15.5) % Plt Count (150-450) k/uL MPV Neutrophils % % Lymphocytes % % Monocytes % % Eosinophils % % Basophils % % Neutrophils # (1.3-7.7) k/uL Lymphocytes # (1.0-4.8) k/uL Monocytes # (0-1.0) k/uL Eosinophils # (0-0.7) k/uL Basophils # (0-0.2) k/uL Manual Slide Review PT 11.8 (9.0-12.0) sec INR 1.1 (<1.2) APTT 22.2 (22.0-30.0) sec Sodium (137-145) mmol/L Potassium (3.5-5.1) mmol/L Chloride (98-107) mmol/L Carbon Dioxide (22-30) mmol/L Anion Gap mmol/L BUN (9-20) mg/dL Creatinine (0.66-1.25) mg/dL Est GFR (CKD-EPI)AfAm (>60 ml/min/1.73 sqM) Est GFR (CKD-EPI)NonAf (>60 ml/min/1.73 sqM) Glucose (74-99) mg/dL Lactic Ac Sepsis Rflx Y Plasma Lactic Acid Tho (0.7-2.0) mmol/L Calcium (8.4-10.2) mg/dL Phosphorus (2.5-4.5) mg/dL Magnesium (1.6-2.3) mg/dL Total Bilirubin (0.2-1.3) mg/dL AST (17-59) U/L ALT (4-49) U/L Alkaline Phosphatase (38-126) U/L Troponin I 0.023 (0.000-0.034) ng/mL Total Protein (6.3-8.2) g/dL Albumin (3.5-5.0) g/dL Influenza Type A (PCR) (Not Detectd) Influenza Type B (PCR) (Not Detectd) RSV (PCR) (Not Detectd) SARS-CoV-2 (PCR) (Not Detectd) 05/04/23 Range/Units 06:34 WBC (3.8-10.6) k/uL RBC (4.30-5.90) m/uL Hgb (13.0-17.5) gm/dL Hct (39.0-53.0) % MCV (80.0-100.0) fL MCH (25.0-35.0) pg MCHC (31.0-37.0) g/dL RDW (11.5-15.5) % Plt Count (150-450) k/uL MPV Neutrophils % % Lymphocytes % % Monocytes % % Eosinophils % % Basophils % % Neutrophils # (1.3-7.7) k/uL Lymphocytes # (1.0-4.8) k/uL Monocytes # (0-1.0) k/uL Eosinophils # (0-0.7) k/uL Basophils # (0-0.2) k/uL Manual Slide Review PT (9.0-12.0) sec INR (<1.2) APTT (22.0-30.0) sec Sodium (137-145) mmol/L Potassium (3.5-5.1) mmol/L Chloride (98-107) mmol/L Carbon Dioxide (22-30) mmol/L Anion Gap mmol/L BUN (9-20) mg/dL Creatinine (0.66-1.25) mg/dL Est GFR (CKD-EPI)AfAm (>60 ml/min/1.73 sqM) Est GFR (CKD-EPI)NonAf (>60 ml/min/1.73 sqM) Glucose (74-99) mg/dL Lactic Ac Sepsis Rflx Plasma Lactic Acid Tho (0.7-2.0) mmol/L Calcium (8.4-10.2) mg/dL Phosphorus (2.5-4.5) mg/dL Magnesium (1.6-2.3) mg/dL Total Bilirubin (0.2-1.3) mg/dL AST (17-59) U/L ALT (4-49) U/L Alkaline Phosphatase (38-126) U/L Troponin I (0.000-0.034) ng/mL Total Protein (6.3-8.2) g/dL Albumin (3.5-5.0) g/dL Influenza Type A (PCR) Not Detected (Not Detectd) Influenza Type B (PCR) Not Detected (Not Detectd) RSV (PCR) Not Detected (Not Detectd) SARS-CoV-2 (PCR) Not Detected (Not Detectd) - EKG Data -: EKG Interpreted by Me (EKG is sinus 97 MA 160 QRS 91 QTC 359) - Radiology Data Radiology results: report reviewed (Chest x-rays negative for acute disease), image reviewed Disposition Clinical Impression: Bilateral cellulitis of lower leg, Cellulitis of right leg, Leg wound, right, Weakness, Fever Disposition: ADMITTED IP TO THIS HOSP Condition: Stable Is patient prescribed a controlled substance at d/c from ED?: No Time of Disposition: 07:00
[2023-05-04 05:49] LABS: ALT 29 U/L (4-49); African American GFR (CKD) 75 (>60 ml/min/1.73 sqM); Anion Gap 7 mmol/L; Blood Urea Nitrogen 43 mg/dL (9-20); Calcium 8.6 mg/dL (8.4-10.2); Carbon Dioxide 29 mmol/L (22-30); Chloride 103 mmol/L (98-107); Glucose 113 mg/dL (74-99); Non-African American GFR(CKD) 65 (>60 ml/min/1.73 sqM); Sodium 139 mmol/L (137-145)
[2023-05-04 05:51] LABS: AST 53 U/L (17-59); Albumin 3.3 g/dL (3.5-5.0); Alkaline Phosphatase 121 U/L (38-126); Magnesium 1.5 mg/dL (1.6-2.3); Phosphorus 1.6 mg/dL (2.5-4.5); Potassium 5.6 mmol/L (3.5-5.1); Total Bilirubin 0.7 mg/dL (0.2-1.3); Total Protein 6.5 g/dL (6.3-8.2)
[2023-05-04 06:23] LABS: Basophils % (A) 0 %; Eosinophils # (A) 0.1 k/uL (0-0.7); Eosinophils % (A) 0 %; HCT 31.2 % (39.0-53.0); Lymphocytes # (A) 0.2 k/uL (1.0-4.8); Lymphocytes % (A) 1 %; MCH 28.7 pg (25.0-35.0); MCHC 32.1 g/dL (31.0-37.0); MCV 89.6 fL (80.0-100.0); Mean Platelet Volume 7.6; Monocytes # (A) 0.1 k/uL (0-1.0); Monocytes % (A) 1 %; Neutrophils # (A) 14.1 k/uL (1.3-7.7); Neutrophils % (A) 97 %; Platelet Count 459 k/uL (150-450); RBC 3.48 m/uL (4.30-5.90); RDW 15.7 % (11.5-15.5); WBC 14.6 k/uL (3.8-10.6)
[2023-05-04 06:29] LABS: INR 1.1 (<1.2); Partial Thromboplastin Time 22.2 sec (22.0-30.0); Prothrombin Time 11.8 sec (9.0-12.0)
--- NOTE | 2023-05-04 07:06 | XR ---
EXAM: XR chest 1V portable CLINICAL INDICATION:Male, 68 years old with history of fever; [facility] COMPARISON: 04/18/2023 TECHNIQUE: Chest single view. FINDINGS: Lines/tubes/devices: EKG leads overlie the chest. No indwelling lines are seen. Cardiomediastinum: Cardiac silhouette appears normal in size. Unremarkable mediastinal silhouette. Vasculature: No increased pulmonary vasculature. Lungs/pleura: No consolidation, sizeable effusion, or visible pneumothorax. Slight left basilar subsegmental atelec tasis. Bones/soft tissues: Bony thorax appears grossly intact as seen. Regional soft tissues appear unremarkable. Other: Mild to moderate gaseous distention of the gastric bubble with mild asymmetric elevation of th e left hemidiaphragm. IMPRESSION: No acute cardiopulmonary findings. Mild to moderate gaseous distention of the gastric bubble with mild asymmetric elevation of the left hemidiaphragm.
[2023-05-04] MEDS ORDERED: SODIUM CHLORIDE 0.9% 2,000 ML IV STA (07:43)
[2023-05-04] MEDS ORDERED: ONDANSETRON 4 MG/2 ML VIAL IVP PRN (07:46)
[2023-05-04] MEDS ORDERED: ACETAMINOPHEN TAB 325 MG TAB PO PRN (07:46)
[2023-05-04] MEDS ORDERED: MORPHINE SULFATE 4 MG/ML SYRINGE IV PRN (07:46)
[2023-05-04] MEDS ORDERED: NALOXONE 0.4 MG/ML 1 ML VIAL IV PRN (07:46)
[2023-05-04] MEDS: SODIUM CHLORIDE 0.9% 1,000 ML IV SCH ×2 (08:30→17:15)
[2023-05-04] MEDS: PANTOPRAZOLE 40 MG/10 ML VIAL IV SCH (11:04)
[2023-05-04] MEDS: CEFEPIME 2 GM in SODIUM CHLORIDE 0.9% 100 ML IVPB SCH ×2 (12:50→20:58)
[2023-05-04 12:55] LABS: Glucose,Whole Blood 153 mg/dL (70-110)
[2023-05-04] MEDS ORDERED: NOREPINEPHRINE 8 MG in SODIUM CHLORIDE 0.9% 250 ML IV SCH (14:00)
--- NOTE | 2023-05-04 14:12 | P.HPIM ---
History of Present Illness H&P Date: 05/04/23 Patient is a 68-year-old male with history of chronic recurrent lower extremity cellulitis, paroxysmal atrial fibrillation on Eliquis, insulin-dependent type 2 diabetes, severe aortic stenosis, hypertension, dyslipidemia, morbid obesity, OZZY, depression presenting with fever. Patient was recently admitted nearly 2 weeks ago for recurrent lower extremity cellulitis, was discharged to rehab facility. Family claims that he has been feeling weaker over the last few days, but yesterday started noticing more confusion and lethargy. He was also noted to have fever at the facility and was transferred to the ER. Currently he denies any chest pain, shortness of breath, abdominal pain, nausea, vomiting, urinary or bowel complaints. He does have pain in his lower extremities bila terally. In the ED, temperature was 103.1, respiratory rate 26, blood pressure 98/74, pulse 98, saturating at 91% on room air. WBC 14.6, hemoglobin 10, platelets 459, potassium 5.6 with slight hemolysis, creatinine 1.15, glucose 113, lactate 2.6, magnesium 1.5, troponin negative. Respiratory viral panel was negative. Chest x-ray independently interpreted did not show any opacities, nondistended stomach. EKG shows normal sinus rhythm. Patient was given vancomycin and ceftriaxone in the ED. Was also given 2 L of normal saline. Pertinent positives and negatives as discussed in HPI, a complete review of systems was performed and all other systems are negative. Patient seen and examined at bedside. Vital signs reviewed General: nontoxic, no distress, appears at stated age Derm: warm, dry, LE wounds covered in dressing, will be observed later Head: atraumatic, normocephalic, symmetric Eyes: EOMI, no lid lag, anicteric sclera, pupils equal round reactive to light ENT: Nose and ears atraumatic Neck: No thyromegaly, supple Mouth: no lip lesion, mucus membranes moist Cardiovascular: S1S2 reg, systolic murmur, 2+ edema Lungs: clear to auscultation bilateral, no rhonchi, no rales, no wheeze, no accessory muscle use Abdominal: soft, nontender to palpation, no guarding, no appreciable organomegaly Ext: no gross muscle atrophy, muscle strength muscle strength 5 out of 5 in all 4 extremities, no contractures Neuro: CN II-XII grossly intact Psych: Alert, oriented, appropriate affect Assessment/Plan: Active: Septic shock Lower extremity cellulitis Lactic acidosis, resolved -Patient being transferred to ICU, discussed management with stereotype molder -ID also consulted -On vancomycin and IV cefepime, monitor for renal toxicity -Started on norepinephrine -Blood cultures pending -Hold antihypertensives Mild normocytic anemia -No active bleeding, -Continue to monitor Hyperkalemia, slightly hemolysis -Repeat BMP tomorrow Hypomagnesemia -2 g magnesium sulfate ordered Insulin-dependent type 2 diabetes -Continue home Lantus, sliding scale insulin Unclear why patient is on prednisone or when he last took it. Chronic: Paroxysmal atrial fibrillation Dyslipidemia Depression BPH The patient is admitted with an anticipated greater than 2 midnight stay as inpatient status for evaluation of septic shock. Surrogate decision-maker: Children CODE STATUS: Full code DVT prophylaxis: Eliquis Anticipated discharge date: Pending clinical course Anticipated discharge place: Pending clinical course A total of 65 minutes was spent on the care of this complex patient more than 50% of the time was spent in counseling and care coordination. Past Medical History Past Medical History: Atrial Fibrillation, Cancer, Diabetes Mellitus, Hyperlipidemia, Hypertension, Sleep Apnea/CPAP/BIPAP Additional Past Medical History / Comment(s): Basal cell carcinoma, Heart murmur History of Any Multi-Drug Resistant Organisms: MRSA Date of last positivie culture/infection: 02/24/23 MDRO Source:: Right Leg Past Surgical History: No Surgical Hx Reported Additional Past Surgical History / Comment(s): Cataract surgery right eye Past Anesthesia/Blood Transfusion Reactions: No Reported Reaction Past Psychological History: Depression Smoking Status: Never smoker Past Alcohol Use History: None Reported Past Drug Use History: None Reported - Past Family History Mother Family Medical History: Diabetes Mellitus Medications and Allergies Home Medications Medication Instructions Recorded Confirmed Type Apixaban [Eliquis] 5 mg PO BID 04/11/17 05/04/23 History Cholecalciferol [Vitamin D3 (25 25 mcg PO DAILY 12/12/22 05/04/23 History Mcg = 1000 Iu)] FLUoxetine HCL [PROzac] 20 mg PO DAILY 12/12/22 05/04/23 History Ferrous Sulfate [Iron (65 MG 325 mg PO DAILY 12/12/22 05/04/23 History Elemental)] Insulin Glargine,Hum.rec.anlog 30 units SQ HS 12/12/22 05/04/23 History [Lantus Solostar Pen] Insulin Lispro [humaLOG Kwikpen] See Protocol SQ TID-W/MEALS 12/12/22 05/04/23 History Testosterone [Androgel 1.62% Gel 2 packet TOPICAL DAILY 12/12/22 05/04/23 History Packet] Acetaminophen Tab [Tylenol] 500 mg PO Q6HR PRN 01/02/23 05/04/23 History Tamsulosin HCl [Flomax] 0.4 mg PO DAILY 01/02/23 05/04/23 History Vitamin B-12 100mcg 1 tab PO DAILY 01/02/23 05/04/23 History Ipratropium-Albuterol Nebulize 3 ml INHALATION RT-TID 02/23/23 05/04/23 History [Duoneb 0.5 mg-3 mg/3 ml Soln] carvediloL [Coreg] 12.5 mg PO BID #60 tab 03/03/23 05/04/23 Rx Exenatide Microspheres [Bydureon 2 mg SQ NEVAREZ 04/18/23 05/04/23 History Bcise Auto-Injector] Furosemide [Lasix] 40 mg PO DAILY 04/18/23 05/04/23 History Potassium Chloride ER [K-Dur 20] 20 meq PO DAILY 04/18/23 05/04/23 History traMADol HCL 50 mg PO Q6H PRN #12 tab 04/24/23 05/04/23 Rx Atorvastatin [Lipitor] 10 mg PO HS 05/04/23 05/04/23 History Hydrocortisone Cream 1 applic TOPICAL BID 05/04/23 05/04/23 History [Hydrocortisone 1% Cream] Sulfamethox-Tmp 800-160Mg [Bactrim 1 tab PO Q12HR 05/04/23 05/04/23 History DS 800-160 mg] diphenhydrAMINE [Benadryl] 50 mg PO QID PRN 05/04/23 05/04/23 History diphenhydrAMINE [Benadryl] 50 mg PO TID 05/04/23 05/04/23 History predniSONE [Deltasone] 20 mg PO DAILY 05/04/23 05/04/23 History Allergies Allergy/AdvReac Type Severity Reaction Status Date / Time famotidine [From Pepcid] Allergy Unknown Verified 05/04/23 12:46 Penicillins Allergy Rash/Hives Verified 05/04/23 12:46 hydrocodone AdvReac Hallucinati Verified 05/04/23 12:46 ons lisinopril [From Prinivil] AdvReac Cough Verified 05/04/23 12:46 Physical Exam Vitals: Vital Signs Temp Pulse Resp BP Pulse Ox 05/04/23 13:39 67 18 101/50 97 05/04/23 13:30 70 18 84/63 95 05/04/23 13:16 98.8 F 05/04/23 13:00 67 22 65/34 95 05/04/23 11:30 73 19 75/50 05/04/23 10:30 72 16 05/04/23 10:00 70 20 82/53 05/04/23 09:30 78 7 L 88/44 05/04/23 09:00 77 14 60/35 05/04/23 08:30 77 25 H 79/40 05/04/23 08:00 80 25 H 78/38 05/04/23 07:41 82 26 H 78/38 05/04/23 06:34 99.4 F 89 20 97/51 95 05/04/23 05:21 98 24 111/78 95 05/04/23 04:24 103.1 F H 98 26 H 98/74 91 L Intake and Output 05/03/23 05/04/23 05/04/23 22:59 06:59 14:59 Other: Weight 136.078 kg Results CBC & Chem 7: 05/04/23 05:04 05/04/23 05:04 Labs: Abnormal Lab Results - Last 24 Hours (Table) 05/04/23 05/04/23 05/04/23 Range/Units 05:04 05:04 05:04 WBC 14.6 H (3.8-10.6) k/uL RBC 3.48 L (4.30-5.90) m/uL Hgb 10.0 L D (13.0-17.5) gm/dL Hct 31.2 L (39.0-53.0) % RDW 15.7 H (11.5-15.5) % Plt Count 459 H (150-450) k/uL Neutrophils # 14.1 H (1.3-7.7) k/uL Lymphocytes # 0.2 L (1.0-4.8) k/uL Potassium 5.6 H (3.5-5.1) mmol/L BUN 43 H (9-20) mg/dL Glucose 113 H (74-99) mg/dL POC Glucose (mg/dL) (70-110) mg/dL Plasma Lactic Acid Tho 2.6 H* (0.7-2.0) mmol/L Phosphorus 1.6 L (2.5-4.5) mg/dL Magnesium 1.5 L (1.6-2.3) mg/dL Albumin 3.3 L (3.5-5.0) g/dL 05/04/23 Range/Units 12:54 WBC (3.8-10.6) k/uL RBC (4.30-5.90) m/uL Hgb (13.0-17.5) gm/dL Hct (39.0-53.0) % RDW (11.5-15.5) % Plt Count (150-450) k/uL Neutrophils # (1.3-7.7) k/uL Lymphocytes # (1.0-4.8) k/uL Potassium (3.5-5.1) mmol/L BUN (9-20) mg/dL Glucose (74-99) mg/dL POC Glucose (mg/dL) 153 H (70-110) mg/dL Plasma Lactic Acid Tho (0.7-2.0) mmol/L Phosphorus (2.5-4.5) mg/dL Magnesium (1.6-2.3) mg/dL Albumin (3.5-5.0) g/dL
[2023-05-04] MEDS: NOREPINEPHRINE 4 MG in SODIUM CHLORIDE 0.9% 250 ML IV SCH ×2 (14:13→22:33)
[2023-05-04] MEDS: MAGNESIUM SULFATE-D5W PMX 1 GM in DEXTROSE/WATER 1 100ML.BAG IVPB SCH ×2 (15:27→17:15)
[2023-05-04 16:00] LABS: Glucose,Whole Blood 167 mg/dL (70-110)
[2023-05-04] MEDS ORDERED: SODIUM PHOSPHATE 30 MMOL in DEXTROSE 5% IN WATER 250 ML IVPB ONE ×2 (17:59)
[2023-05-04] MEDS ORDERED: Phosphorus Replacement Protoco 1 EACH MISC MISCELLANE PRN (17:59)
[2023-05-04] MEDS ORDERED: Magnesium Replacement Protocol 1 EACH MISC MISCELLANE PRN (18:00)
[2023-05-04 18:01] LABS: Appearance,Urine Clear (Clear); Bilirubin,Urine Negative (Negative); Blood,Urine Negative (Negative); Color,Urine Yellow; Glucose,Urine (UA) Trace (Negative); Ketones,Urine Negative (Negative); Leukocyte Esterase,Urine Negative (Negative); Nitrite,Urine Negative (Negative); Protein,Urine Negative (Negative); Specific Gravity,Urine 1.015 (1.001-1.035); Urobilinogen,Urine <2.0 mg/dL (<2.0)
[2023-05-04] MEDS: IPRATROPIUM-ALBUTEROL 3 ML NEB INHALATION SCH (20:11)
[2023-05-04 20:20] LABS: Glucose,Whole Blood 226 mg/dL (70-110)
[2023-05-04] MEDS: APIXABAN 5 MG TAB PO SCH (20:58)
[2023-05-04] MEDS: ATORVASTATIN 10 MG TAB PO SCH (20:58)
[2023-05-04] MEDS: INSULIN DETEMIR (LEVEMIR) 100 UNIT/ML SYR SQ SCH (20:58)
[2023-05-04] MEDS: INSULIN ASPART (NovoLOG) 100 UNIT/ML VIAL SQ SCH (21:10)
--- NOTE | 2023-05-04 21:33 | US ---
EXAMINATION TYPE: US venous doppler duplex LE BI DATE OF EXAM: 05/04/2023 6:58 PM COMPARISON: Right lower extremity venous ultrasound February 28, 2023 CLINICAL INDICATION: Male, 68 years old with history of edema; Chronic cellulitis, diabetic, 300lb IC U patient, no h/o dvt, on Eliquis SIDE PERFORMED: Bilateral TECHNIQUE: The lower extremity deep venous system is examined utilizing real time linear array sonog lenin with graded compression, doppler sonography and color-flow sonography. VESSELS IMAGED: Common Femoral Vein Deep Femoral Vein Greater Saphenous Vein * Femoral Vein Popliteal Vein Small Saphenous Vein * Proximal Calf Veins (* superficial vessels) Right Leg: Negative for DVT Left Leg: Negative for DVT Grayscale, color doppler, spectral doppler imaging performed of the deep veins of the bilateral lower extremities. There is normal flow, compressibility, vascular waveforms. IMPRESSION: Suboptimal study due to body habitus. No Ultrasound evidence for acute DVT in either low er extremity however.
--- NOTE | 2023-05-04 22:40 | US ---
EXAMINATION TYPE: US arterial LE single level DATE OF EXAM: 05/04/2023 10:27 PM CLINICAL INDICATION: Male, 68 years old with history of No Right pedal pulse; Apparently no pedal pul ses felt in right foot, 300lb ICU patient with sepsis History of: Smoker: unknown Hypertension: y Diabetic: y Hyperlipidemia: y TIA/CVA: n Previous Vascular Surgery: n CAD: n VT: n Vascular Ulcers: unknown Claudication: n Gangrene: n Doppler Waveforms: Right: Monophasic, sounded calcified Left: Biphasic Right Brachial Pressure: N/A - IV'S Left Brachial Pressure: 100 Ankle-Brachial Indices: Unable to be done, patient has leg spasms and can't hold still, could not tolerate a small amount o f pressure from cuff to properly assess Toe Brachial Indices: Attempted waveforms but unable to obtain pressures due to inability to hold feet still. IMPRESSION: Nondiagnostic study.
--- NOTE | 2023-05-04 22:50 | P.CONS ---
History of Present Illness - Reason for Consult Consult date: 05/04/23 - History of Present Illness Patient is a 68-year-old male with a past medical history significant for atrial fibrillation diabetes mellitus hypertension hyperlipidemia sleep apnea patient did have a history of right lower extremity venous stasis ulcer and recurrent episodes of cellulitis patient has been sent to the ER from the long-term earlier this morning for evaluation of fever apparently the patient started having a fever the day of presentation to the hospital, the patient denies having any headache or URI symptoms denies having any chest pain or shortness of breath did have occasional dry cough no nausea no vomiting no abdominal pain no diarrhea patient did have a chronic nonhealing wound to the right lower extremity did have mild aching pain 2-3 out of 10 and denies any foul-smelling drainage with the symptoms the patient was evaluated by the ER physician on presentation to the hospital the patient did have a fever of 103 F patient was tachycardic mildly hypertensive and did have elevated white count of 14,000 patient did have elevated lactic acid of 2.6 liver exam has been normal urine is negative influenza RSV and COVID testing was negative patient did have a chest x-ray no acute cardiopulmonary findings patient was started on vancomycin and cefepime infectious disease was consulted for further management of antibiotic therapy Past Medical History Past Medical History: Atrial Fibrillation, Cancer, Diabetes Mellitus, Hyperlipidemia, Hypertension, Sleep Apnea/CPAP/BIPAP Additional Past Medical History / Comment(s): Basal cell carcinoma, Heart murmur History of Any Multi-Drug Resistant Organisms: MRSA Year Discovered:: 02/24/23 MDRO Source:: Right Leg Past Surgical History: No Surgical Hx Reported Additional Past Surgical History / Comment(s): Cataract surgery right eye Past Anesthesia/Blood Transfusion Reactions: No Reported Reaction Past Psychological History: Depression Smoking Status: Never smoker Past Alcohol Use History: None Reported Past Drug Use History: None Reported - Past Family History Mother Family Medical History: Diabetes Mellitus Medications and Allergies Home Medications Medication Instructions Recorded Confirmed Type Apixaban [Eliquis] 5 mg PO BID 04/11/17 05/04/23 History Cholecalciferol [Vitamin D3 (25 25 mcg PO DAILY 12/12/22 05/04/23 History Mcg = 1000 Iu)] FLUoxetine HCL [PROzac] 20 mg PO DAILY 12/12/22 05/04/23 History Ferrous Sulfate [Iron (65 MG 325 mg PO DAILY 12/12/22 05/04/23 History Elemental)] Insulin Glargine,Hum.rec.anlog 30 units SQ HS 12/12/22 05/04/23 History [Lantus Solostar Pen] Insulin Lispro [humaLOG Kwikpen] See Protocol SQ TID-W/MEALS 12/12/22 05/04/23 History Testosterone [Androgel 1.62% Gel 2 packet TOPICAL DAILY 12/12/22 05/04/23 History Packet] Acetaminophen Tab [Tylenol] 500 mg PO Q6HR PRN 01/02/23 05/04/23 History Tamsulosin HCl [Flomax] 0.4 mg PO DAILY 01/02/23 05/04/23 History Vitamin B-12 100mcg 1 tab PO DAILY 01/02/23 05/04/23 History Ipratropium-Albuterol Nebulize 3 ml INHALATION RT-TID 02/23/23 05/04/23 History [Duoneb 0.5 mg-3 mg/3 ml Soln] carvediloL [Coreg] 12.5 mg PO BID #60 tab 03/03/23 05/04/23 Rx Exenatide Microspheres [Bydureon 2 mg SQ NEVAREZ 04/18/23 05/04/23 History Bcise Auto-Injector] Furosemide [Lasix] 40 mg PO DAILY 04/18/23 05/04/23 History Potassium Chloride ER [K-Dur 20] 20 meq PO DAILY 04/18/23 05/04/23 History traMADol HCL 50 mg PO Q6H PRN #12 tab 04/24/23 05/04/23 Rx Atorvastatin [Lipitor] 10 mg PO HS 05/04/23 05/04/23 History Hydrocortisone Cream 1 applic TOPICAL BID 05/04/23 05/04/23 History [Hydrocortisone 1% Cream] Sulfamethox-Tmp 800-160Mg [Bactrim 1 tab PO Q12HR 05/04/23 05/04/23 History DS 800-160 mg] diphenhydrAMINE [Benadryl] 50 mg PO QID PRN 05/04/23 05/04/23 History diphenhydrAMINE [Benadryl] 50 mg PO TID 05/04/23 05/04/23 History predniSONE [Deltasone] 20 mg PO DAILY 05/04/23 05/04/23 History Allergies Allergy/AdvReac Type Severity Reaction Status Date / Time famotidine [From Pepcid] Allergy Unknown Verified 05/04/23 12:46 Penicillins Allergy Rash/Hives Verified 05/04/23 12:46 hydrocodone AdvReac Hallucinati Verified 05/04/23 12:46 ons lisinopril [From Prinivil] AdvReac Cough Verified 05/04/23 12:46 Physical Exam Vitals: Vital Signs Temp Pulse Resp BP Pulse Ox 05/04/23 06:34 99.4 F 89 20 97/51 95 05/04/23 05:21 98 24 111/78 95 05/04/23 04:24 103.1 F H 98 26 H 98/74 91 L Intake and Output 05/03/23 05/04/23 05/04/23 22:59 06:59 14:59 Other: Weight 136.078 kg Results CBC & Chem 7: 05/04/23 05:04 05/04/23 05:04 Labs: Abnormal Lab Results - Last 24 Hours (Table) 05/04/23 05/04/23 05/04/23 Range/Units 05:04 05:04 05:04 WBC 14.6 H (3.8-10.6) k/uL RBC 3.48 L (4.30-5.90) m/uL Hgb 10.0 L D (13.0-17.5) gm/dL Hct 31.2 L (39.0-53.0) % RDW 15.7 H (11.5-15.5) % Plt Count 459 H (150-450) k/uL Neutrophils # 14.1 H (1.3-7.7) k/uL Lymphocytes # 0.2 L (1.0-4.8) k/uL Potassium 5.6 H (3.5-5.1) mmol/L BUN 43 H (9-20) mg/dL Glucose 113 H (74-99) mg/dL Plasma Lactic Acid Tho 2.6 H* (0.7-2.0) mmol/L Phosphorus 1.6 L (2.5-4.5) mg/dL Magnesium 1.5 L (1.6-2.3) mg/dL Albumin 3.3 L (3.5-5.0) g/dL Assessment and Plan Plan: 1patient present to hospital with sepsis in this patient with a fever tachycardia elevated white count source likely right lower extremity cellulitis in this patient who did have a history of chronic venous stasis ulcer and hist ory of recurrent cellulitis and patient has previously grown MRSA and Klebsiella from these wounds though last admission cultures were negative patient chest x- ray reported negative for any pneumonia patient is breathing comfortably on room air UA was negative and abdominal soft on clinical Examination 2-patient with a penicillin allergy that will limit the number of antibiotic safe to use 3-we will continue patient on vancomycin and cefepime while waiting for the culture to finalize and condition stabilize 4-local wound care with Aquacel silver dressing followed by Andrea wrap to keep the swelling down We will follow on clinical condition and cultures to further adjust medication if needed Thank you for this consultation we will follow the patient along with you Dictation was produced using [employer] dictation software. please excuse any grammatical, word or spelling errors. Time with Patient: Greater than 30
[2023-05-05] MEDS: SODIUM CHLORIDE 0.9% 1,000 ML IV SCH ×4 (00:29→22:19)
[2023-05-05 02:25] LABS: Magnesium 2.1 mg/dL (1.6-2.3); Phosphorus 5.9 mg/dL (2.5-4.5)
[2023-05-05] MEDS: NOREPINEPHRINE 4 MG in SODIUM CHLORIDE 0.9% 250 ML IV SCH ×2 (02:59→09:00)
[2023-05-05] MEDS: CEFEPIME 2 GM in SODIUM CHLORIDE 0.9% 100 ML IVPB SCH ×3 (04:44→23:50)
[2023-05-05 05:51] LABS: Basophils % (A) 0 %; Eosinophils # (A) 0.1 k/uL (0-0.7); Eosinophils % (A) 1 %; HCT 35.3 % (39.0-53.0); HGB 11.5 gm/dL (13.0-17.5); Hypochromasia Slight; Lymphocytes # (A) 0.6 k/uL (1.0-4.8); Lymphocytes % (A) 6 %; MCH 29.7 pg (25.0-35.0); MCHC 32.6 g/dL (31.0-37.0); MCV 91.1 fL (80.0-100.0); Mean Platelet Volume 7.9; Monocytes # (A) 0.4 k/uL (0-1.0); Monocytes % (A) 4 %; Neutrophils % (A) 89 %; Platelet Count 275 k/uL (150-450); RBC 3.88 m/uL (4.30-5.90); WBC 10.1 k/uL (3.8-10.6)
[2023-05-05 06:29] LABS: Glucose,Whole Blood 107 mg/dL (70-110)
[2023-05-05] MEDS: INSULIN ASPART (NovoLOG) 100 UNIT/ML VIAL SQ SCH ×4 (06:30→21:55)
[2023-05-05] MEDS: VANCOMYCIN 2,000 MG in SODIUM CHLORIDE 0.9% 500 ML 500 ML IVPB SCH (06:35)
[2023-05-05 07:38] LABS: ALT 34 U/L (4-49); AST 56 U/L (17-59); African American GFR (CKD) 51 (>60 ml/min/1.73 sqM); Albumin 2.3 g/dL (3.5-5.0); Alkaline Phosphatase 75 U/L (38-126); Anion Gap 7 mmol/L; Blood Urea Nitrogen 51 mg/dL (9-20); Calcium 7.1 mg/dL (8.4-10.2); Carbon Dioxide 22 mmol/L (22-30); Chloride 110 mmol/L (98-107); Glucose 104 mg/dL (74-99); Magnesium 1.9 mg/dL (1.6-2.3); Non-African American GFR(CKD) 44 (>60 ml/min/1.73 sqM); Phosphorus 4.6 mg/dL (2.5-4.5); Sodium 139 mmol/L (137-145); Total Bilirubin 0.6 mg/dL (0.2-1.3)
[2023-05-05 07:47] LABS: Potassium 5.8 mmol/L (3.5-5.1)
[2023-05-05] MEDS: PANTOPRAZOLE 40 MG/10 ML VIAL IV SCH (08:22)
[2023-05-05] MEDS: TAMSULOSIN 0.4 MG CAP.ER.24H PO SCH (08:22)
[2023-05-05] MEDS: APIXABAN 5 MG TAB PO SCH ×2 (08:22→22:01)
[2023-05-05] MEDS: CYANOCOBALAMIN 500 MCG TAB PO SCH (08:22)
[2023-05-05] MEDS: CHOLECALCIFEROL 25 MCG (1000 IU) TABLET PO SCH (08:22)
[2023-05-05] MEDS: FERROUS SULFATE 325 MG TAB PO SCH (08:22)
[2023-05-05] MEDS: FLUoxetine HCL 20 MG CAP PO SCH (08:22)
[2023-05-05] MEDS: IPRATROPIUM-ALBUTEROL 3 ML NEB INHALATION SCH ×3 (08:53→19:34)
--- NOTE | 2023-05-05 09:30 | P.GSCN ---
History of Present Illness Consult date: 05/05/23 Reason for Consult: Lower extremity occlusive disease with secondary ulceration. History of present illness: Patient is a 68-year-old male who is a 5 month history of recurrent right lower extremity infectious issues and has developed a wound. This is been treated as an outpatient. He was recently admitted with signs and symptoms of sepsis. He has been undergoing intravenous antibiotic therapy and indicates to me today that he feels better than he has in the past 5 months. Historically the patient does not ambulate very much. Thus there is no history of claudication. He denies any history of ischemic rest pain. He has a history of greater than 25 years of diabetes mellitus. He is a nonsmoker/nondrinker. He denies known cardiac ischemic symptoms or CVA. He does have a history of cardiac dysrhythmia and is maintained on L Aquinas. Past Medical History Past Medical History: Atrial Fibrillation, Cancer, Diabetes Mellitus, Hyperlipidemia, Hypertension, Sleep Apnea/CPAP/BIPAP Additional Past Medical History / Comment(s): Basal cell carcinoma, Heart murmur History of Any Multi-Drug Resistant Organisms: MRSA Year Discovered:: 02/24/23 MDRO Source:: Right Leg Past Surgical History: No Surgical Hx Reported Additional Past Surgical History / Comment(s): Cataract surgery right eye Past Anesthesia/Blood Transfusion Reactions: No Reported Reaction Past Psychological History: Depression Smoking Status: Never smoker Past Alcohol Use History: None Reported Past Drug Use History: None Reported - Past Family History Mother Family Medical History: Diabetes Mellitus Medications and Allergies Home Medications Medication Instructions Recorded Confirmed Type Apixaban [Eliquis] 5 mg PO BID 04/11/17 05/04/23 History Cholecalciferol [Vitamin D3 (25 25 mcg PO DAILY 12/12/22 05/04/23 History Mcg = 1000 Iu)] FLUoxetine HCL [PROzac] 20 mg PO DAILY 12/12/22 05/04/23 History Ferrous Sulfate [Iron (65 MG 325 mg PO DAILY 12/12/22 05/04/23 History Elemental)] Insulin Glargine,Hum.rec.anlog 30 units SQ HS 12/12/22 05/04/23 History [Lantus Solostar Pen] Insulin Lispro [humaLOG Kwikpen] See Protocol SQ TID-W/MEALS 12/12/22 05/04/23 History Testosterone [Androgel 1.62% Gel 2 packet TOPICAL DAILY 12/12/22 05/04/23 History Packet] Acetaminophen Tab [Tylenol] 500 mg PO Q6HR PRN 01/02/23 05/04/23 History Tamsulosin HCl [Flomax] 0.4 mg PO DAILY 01/02/23 05/04/23 History Vitamin B-12 100mcg 1 tab PO DAILY 01/02/23 05/04/23 History Ipratropium-Albuterol Nebulize 3 ml INHALATION RT-TID 02/23/23 05/04/23 History [Duoneb 0.5 mg-3 mg/3 ml Soln] carvediloL [Coreg] 12.5 mg PO BID #60 tab 03/03/23 05/04/23 Rx Exenatide Microspheres [Bydureon 2 mg SQ NEVAREZ 04/18/23 05/04/23 History Bcise Auto-Injector] Furosemide [Lasix] 40 mg PO DAILY 04/18/23 05/04/23 History Potassium Chloride ER [K-Dur 20] 20 meq PO DAILY 04/18/23 05/04/23 History traMADol HCL 50 mg PO Q6H PRN #12 tab 04/24/23 05/04/23 Rx Atorvastatin [Lipitor] 10 mg PO HS 05/04/23 05/04/23 History Hydrocortisone Cream 1 applic TOPICAL BID 05/04/23 05/04/23 History [Hydrocortisone 1% Cream] Sulfamethox-Tmp 800-160Mg [Bactrim 1 tab PO Q12HR 05/04/23 05/04/23 History DS 800-160 mg] diphenhydrAMINE [Benadryl] 50 mg PO QID PRN 05/04/23 05/04/23 History diphenhydrAMINE [Benadryl] 50 mg PO TID 05/04/23 05/04/23 History predniSONE [Deltasone] 20 mg PO DAILY 05/04/23 05/04/23 History Allergies Allergy/AdvReac Type Severity Reaction Status Date / Time famotidine [From Pepcid] Allergy Unknown Verified 05/04/23 12:46 Penicillins Allergy Rash/Hives Verified 05/04/23 12:46 hydrocodone AdvReac Hallucinati Verified 05/04/23 12:46 ons lisinopril [From Prinivil] AdvReac Cough Verified 05/04/23 12:46 Surgical - Exam Osteopathic Statement: *. No significant issues noted on an osteopathic st ructural exam other than those noted in the History and Physical/Consult. Vital Signs Temp Pulse Resp BP Pulse Ox 103.1 F H 98 26 H 98/74 91 L 05/04/23 04:24 05/04/23 04:24 05/04/23 04:24 05/04/23 04:24 05/04/23 04:24 Patient Seen Date: 05/05/23 Patient Seen Time: 08:20 Patient is awake, alert, cooperative in no apparent distress. Cranial nerves 2 through 12 are grossly intact. No carotid bruits are noted. Heart is irregular. Lungs are clear to auscultation bilaterally. Abdomen is soft and otherwise benign. Femoral pulses are intact while the popliteal, DP and PT pulses are absent bilaterally. Attempt at arterial Doppler was performed earlier this date which was not able to be completed secondary to patient discomfort. Results - Labs 05/05/23 04:53 05/05/23 06:55 Abnormal Lab Results - Last 24 Hours (Table) 05/04/23 05/04/23 05/04/23 Range/Units 12:54 15:57 17:30 RBC (4.30-5.90) m/uL Hgb (13.0-17.5) gm/dL Hct (39.0-53.0) % RDW (11.5-15.5) % Neutrophils # (1.3-7.7) k/uL Lymphocytes # (1.0-4.8) k/uL Potassium (3.5-5.1) mmol/L Chloride (98-107) mmol/L BUN (9-20) mg/dL Creatinine (0.66-1.25) mg/dL Glucose (74-99) mg/dL POC Glucose (mg/dL) 153 H 167 H (70-110) mg/dL Calcium (8.4-10.2) mg/dL Phosphorus (2.5-4.5) mg/dL Total Protein (6.3-8.2) g/dL Albumin (3.5-5.0) g/dL Urine Glucose (UA) Trace H (Negative) 05/04/23 05/05/23 05/05/23 Range/Units 20:19 01:50 04:53 RBC 3.88 L (4.30-5.90) m/uL Hgb 11.5 L (13.0-17.5) gm/dL Hct 35.3 L (39.0-53.0) % RDW 16.0 H (11.5-15.5) % Neutrophils # 9.0 H (1.3-7.7) k/uL Lymphocytes # 0.6 L (1.0-4.8) k/uL Potassium (3.5-5.1) mmol/L Chloride (98-107) mmol/L BUN (9-20) mg/dL Creatinine (0.66-1.25) mg/dL Glucose (74-99) mg/dL POC Glucose (mg/dL) 226 H (70-110) mg/dL Calcium (8.4-10.2) mg/dL Phosphorus 5.9 H (2.5-4.5) mg/dL Total Protein (6.3-8.2) g/dL Albumin (3.5-5.0) g/dL Urine Glucose (UA) (Negative) 05/05/23 Range/Units 06:55 RBC (4.30-5.90) m/uL Hgb (13.0-17.5) gm/dL Hct (39.0-53.0) % RDW (11.5-15.5) % Neutrophils # (1.3-7.7) k/uL Lymphocytes # (1.0-4.8) k/uL Potassium 5.8 H (3.5-5.1) mmol/L Chloride 110 H (98-107) mmol/L BUN 51 H (9-20) mg/dL Creatinine 1.57 H (0.66-1.25) mg/dL Glucose 104 H (74-99) mg/dL POC Glucose (mg/dL) (70-110) mg/dL Calcium 7.1 L (8.4-10.2) mg/dL Phosphorus 4.6 H (2.5-4.5) mg/dL Total Protein 5.0 L (6.3-8.2) g/dL Albumin 2.3 L (3.5-5.0) g/dL Urine Glucose (UA) (Negative) Diabetes panel 05/05/23 Range/Units 06:55 Sodium 139 (137-145) mmol/L Potassium 5.8 H (3.5-5.1) mmol/L Chloride 110 H (98-107) mmol/L Carbon Dioxide 22 (22-30) mmol/L BUN 51 H (9-20) mg/dL Creatinine 1.57 H (0.66-1.25) mg/dL Glucose 104 H (74-99) mg/dL Calcium 7.1 L (8.4-10.2) mg/dL AST 56 (17-59) U/L ALT 34 (4-49) U/L Alkaline Phosphatase 75 (38-126) U/L Total Protein 5.0 L (6.3-8.2) g/dL Albumin 2.3 L (3.5-5.0) g/dL Calcium panel 05/05/23 05/05/23 Range/Units 01:50 06:55 Calcium 7.1 L (8.4-10.2) mg/dL Phosphorus 5.9 H 4.6 H (2.5-4.5) mg/dL Albumin 2.3 L (3.5-5.0) g/dL Pituitary panel 05/05/23 Range/Units 06:55 Sodium 139 (137-145) mmol/L Potassium 5.8 H (3.5-5.1) mmol/L Chloride 110 H (98-107) mmol/L Carbon Dioxide 22 (22-30) mmol/L BUN 51 H (9-20) mg/dL Creatinine 1.57 H (0.66-1.25) mg/dL Glucose 104 H (74-99) mg/dL Calcium 7.1 L (8.4-10.2) mg/dL Adrenal panel 05/05/23 Range/Units 06:55 Sodium 139 (137-145) mmol/L Potassium 5.8 H (3.5-5.1) mmol/L Chloride 110 H (98-107) mmol/L Carbon Dioxide 22 (22-30) mmol/L BUN 51 H (9-20) mg/dL Creatinine 1.57 H (0.66-1.25) mg/dL Glucose 104 H (74-99) mg/dL Calcium 7.1 L (8.4-10.2) mg/dL Total Bilirubin 0.6 (0.2-1.3) mg/dL AST 56 (17-59) U/L ALT 34 (4-49) U/L Alkaline Phosphatase 75 (38-126) U/L Total Protein 5.0 L (6.3-8.2) g/dL Albumin 2.3 L (3.5-5.0) g/dL - Imaging Additional studies: Arterial Doppler studies nondiagnostic Assessment and Plan Assessment: 1: Bilateral femoral occlusions. 2: Diabetes mellitus with suspected significant diabetic vascular disease. 3: Cardiac dysrhythmia 4: Abnormal coagulation profile. 5: Resolving sepsis. Plan: Currently the patient is clinically improving in no acute surgical intervention is warranted at this juncture. Ultimately the patient will need to undergo further diagnostic imaging and possible intervention depending on results of imaging which includes arterial Doppler exam. It is anticipated that he can be followed as an outpatient in this regard. Thank you very much for me to present in the care of your patient. Will follow the patient has an outpatient at the office setting. I will be happy to reevaluate the patient sooner should symptoms warrant. Time with Patient: Greater than 30
[2023-05-05 11:23] LABS: Glucose,Whole Blood 140 mg/dL (70-110)
--- NOTE | 2023-05-05 13:13 | P.PN ---
Subjective Progress Note Date: 05/05/23 Hospital Course: 68-year-old male with history of chronic recurrent lower extremity cellulitis, paroxysmal atrial fibrillation on Eliquis, insulin-dependent type 2 diabetes, severe aortic stenosis, hypertension, dyslipidemia, morbid obesity, OZZY, depression presenting with fever. In the ED, temperature was 103.1, respiratory rate 26, blood pressure 98/74, pulse 98, saturating at 91% on room air. WBC 14.6, hemoglobin 10, platelets 459, potassium 5.6 with slight hemolysis, creatinine 1.15, glucose 113, lactate 2.6, magnesium 1.5, troponin negative. Respiratory viral panel was negative. Chest x-ray independently interpreted did not show any opacities, nondistended stomach. EKG shows normal sinus rhythm. Patient was given vancomycin and ceftriaxone in the ED. Was also given 2 L of normal saline. Patient worsened in the ED. Was hypotensive, requiring norepinephrine. Patient transferred to the medical ICU. Vascular surgery, ID, and ICU consulted. Ceftriaxone broadening to cefepime. Subjective: Patient seen and examined at bedside. No acute events overnight. Complaining of some tiredness. Pertinent positives and negatives as discussed above, a complete review of systems was performed and all other systems are negative. Vitals Signs Reviewed. General: nontoxic, no distress, appears at stated age Derm: warm, dry, bilateral lower extremity dressing clean, dry, intact Head: atraumatic, normocephalic, symmetric Eyes: EOMI, no lid lag, anicteric sclera Mouth: no lip lesion, mucus membranes moist Cardiovascular: S1S2 reg, no murmur Lungs: CTA bilateral, no rhonchi, no rales , no accessory muscle use Abdominal: soft, nontender to palpation, no guarding, no appreciable organomegaly Ext: no gross muscle atrophy, lower extremity nonpitting edema, no contractures Neuro: CN II-XI grossly intact, no focal neuro deficits Psych: Alert, oriented, appropriate affect Data Reviewed Today: Pertinent Labs: WBC 10.1, hemoglobin 11.5, potassium 5. is hemolyzed, creatinine 1.57, blood sugars range between 107-140 Imaging: Lower extremity venous Dopplers did not show any DVT, arterial study lower extremity was nondiagnostic as patient could not hold still Assessment and Plan: Patient is critically ill, and medical ICU, prognosis guarded Septic shock Lower extremity cellulitis Lactic acidosis, resolved -Discussed management with condenser cleaner, repeat potassium, continue current management -ID following, patient remains on IV antibiotics -On vancomycin and IV cefepime, monitor for renal toxicity -On norepinephrine, wean possible -Blood cultures negative growth to date -Hold antihypertensives Mild normocytic anemia, hemoglobin -No active bleeding -Continue to monitor Hyperkalemia, slightly hemolysis -Repeat BMP tomorrow Hypomagnesemia, resolved Insulin-dependent type 2 diabetes -Continue home Lantus, sliding scale insulin Chronic: Paroxysmal atrial fibrillation Dyslipidemia Depression BPH DVT ppx: Eliquis Code status: Full code Anticipated discharge place: Pending clinical course Anticipated discharge time: Pending clinical course Objective - Vital Signs Vital signs: Vital Signs Temp 98 F 05/05/23 12:00 Pulse 81 05/05/23 13:00 Resp 21 05/05/23 13:00 BP 112/68 05/05/23 13:00 Pulse Ox 95 05/05/23 13:00 FiO2 Intake & Output 05/04/23 05/05/23 05/05/23 18:59 06:59 18:59 Intake Total 469.816 6409.020 1820.529 Output Total 710 760 460 Balance -48.383 3301.020 1360.529 Weight 136.078 kg 140.2 kg Intake: IV 1730 1410 Cefepime 2 gm In Sodium 300 Chloride 0.9% 100 ml @ 25 mls/hr IVPB Q8H [facility] Rx#: [id number] Sodium Chloride 0.9% 1, 1430 910 000 ml @ 130 mls/hr IV . Q7H42M [facility] Rx#:[id number] Vancomycin 2,000 mg In 500 Sodium Chloride 0.9% 500 ml 500 ml @ 167 mls/hr IVPB ONCE [facility] Rx#: [id number] Intake, IV Titration 661.617 711.020 160.529 Amount Cefepime 2 gm In Sodium 100 100 Chloride 0.9% 100 ml @ 25 mls/hr IVPB Q8H [facility] Rx#: [id number] Magnesium Sulfate-D5w Pmx 200 1 gm In Dextrose/Water 1 100ml.bag @ 100 mls/hr IVPB Q1H [facility] Rx#: [id number] Norepinephrine 4 mg In 101.617 581.020 60.529 Sodium Chloride 0.9% 250 ml @ 0.03 MCG/KG/MIN 15. 554 mls/hr IV .[id number] [facility] Rx#:[id number] Sodium Chloride 0.9% 1, 260 130 000 ml @ 130 mls/hr IV . Q7H42M [facility] Rx#:[id number] Oral 1620 250 Output: Urine 710 760 460 Other: Voiding Method Indwelling Catheter Indwelling Catheter Indwelling Catheter - Labs CBC & Chem 7: 05/05/23 04:53 05/05/23 11:04 Labs: Abnormal Lab Results - Last 24 Hours (Table) 05/04/23 05/04/23 05/04/23 Range/Units 15:57 17:30 20:19 RBC (4.30-5.90) m/uL Hgb (13.0-17.5) gm/dL Hct (39.0-53.0) % RDW (11.5-15.5) % Neutrophils # (1.3-7.7) k/uL Lymphocytes # (1.0-4.8) k/uL Potassium (3.5-5.1) mmol/L Chloride (98-107) mmol/L BUN (9-20) mg/dL Creatinine (0.66-1.25) mg/dL Glucose (74-99) mg/dL POC Glucose (mg/dL) 167 H 226 H (70-110) mg/dL Calcium (8.4-10.2) mg/dL Phosphorus (2.5-4.5) mg/dL Total Protein (6.3-8.2) g/dL Albumin (3.5-5.0) g/dL Urine Glucose (UA) Trace H (Negative) 05/05/23 05/05/23 05/05/23 Range/Units 01:50 04:53 06:55 RBC 3.88 L (4.30-5.90) m/uL Hgb 11.5 L (13.0-17.5) gm/dL Hct 35.3 L (39.0-53.0) % RDW 16.0 H (11.5-15.5) % Neutrophils # 9.0 H (1.3-7.7) k/uL Lymphocytes # 0.6 L (1.0-4.8) k/uL Potassium 5.8 H (3.5-5.1) mmol/L Chloride 110 H (98-107) mmol/L BUN 51 H (9-20) mg/dL Creatinine 1.57 H (0.66-1.25) mg/dL Glucose 104 H (74-99) mg/dL POC Glucose (mg/dL) (70-110) mg/dL Calcium 7.1 L (8.4-10.2) mg/dL Phosphorus 5.9 H 4.6 H (2.5-4.5) mg/dL Total Protein 5.0 L (6.3-8.2) g/dL Albumin 2.3 L (3.5-5.0) g/dL Urine Glucose (UA) (Negative) 05/05/23 05/05/23 Range/Units 11:04 11:11 RBC (4.30-5.90) m/uL Hgb (13.0-17.5) gm/dL Hct (39.0-53.0) % RDW (11.5-15.5) % Neutrophils # (1.3-7.7) k/uL Lymphocytes # (1.0-4.8) k/uL Potassium 5.2 H (3.5-5.1) mmol/L Chloride (98-107) mmol/L BUN (9-20) mg/dL Creatinine (0.66-1.25) mg/dL Glucose (74-99) mg/dL POC Glucose (mg/dL) 140 H (70-110) mg/dL Calcium (8.4-10.2) mg/dL Phosphorus (2.5-4.5) mg/dL Total Protein (6.3-8.2) g/dL Albumin (3.5-5.0) g/dL Urine Glucose (UA) (Negative) Microbiology - Last 24 Hours (Table) 05/04/23 05:04 Blood Culture - Preliminary Blood 05/04/23 05:04 Blood Culture - Preliminary Blood
--- NOTE | 2023-05-05 13:15 | P.CONS ---
History of Present Illness - Reason for Consult Consult date: 05/05/23 wound care - History of Present Illness This is a 68-year-old gentleman with past medical history significant for type 2 diabetes, atrial fibrillation, hypertension, hyperlipidemia, who is currently a patient in the wound care center following with Dr. Gamez. We have been utilizing absorptive silver to the ulcerations. Original cause of wound was Gradually Appeared. The date acquired was: 02/08/2023. The wound has been in treatment 6 weeks. The wound is currently classified as a Grade 2 wound with etiology of Diabetic Wound/Ulcer of the Lower Extremity and is located on the Right,Lateral Lower Leg. The wound measures 5.1cm length x 3.2cm width x 0.2cm depth; 12.818cm^2 area and 2.564cm^3 volume. There is Fat Layer (Subcutaneous Tissue) exposed. There is no tunneling or undermining noted. There is a large amount of sanguinous drainage noted. The wound margin is flat and intact. There is medium (34-66%) red, pink granulation within the wound bed. There is a medium (34-66%) amount of necrotic tissue within the wound bed including Adherent Slough. The periwound skin appearance exhibited: Maceration, Erythema. The periwound skin appearance did not exhibit: Callus, Crepitus, Excoriation, Induration, Rash, Scarring, Dry/Scaly, Atrophie [place], Cyanosis, Hemosiderin Staining, Mottled, Pallor, Rubor. The surrounding wound skin color is noted with erythema. Periwound temperature was noted as No Abnormality. Original cause of wound was Gradually Appeared. The date acquired was: 02/08/2023. The wound has been in treatment 6 weeks. The wound is currently classified as a Grade 2 wound with etiology of Diabetic Wound/Ulcer of the Lower Extremity and is located on the Right,Medial Lower Leg. The wound measures 0cm length x 0cm width x 0cm depth; 0cm^2 area and 0cm^3 volume. There is a medium amount of serosanguineous drainage noted. Original cause of wound was Blister. The date acquired was: 03/24/2023. The wound has been in treatment 5 weeks. The wound is currently classified as a Grade 2 wound with etiology of Diabetic Wound/Ulcer of the Lower Extremity and is located on the Right,Medial,Superior Lower Leg. The wound measures 16cm length x 8.8cm width x 0.1cm depth; 110.584cm^2 area and 11.058cm^3 volume. The wound is limited to skin breakdown. There is no tunneling or undermining noted. There is a large amount of sanguinous drainage noted. The wound margin is flat and intact. There is large (67-100%) red, pink granulation within the wound bed. There is a small (1-33%) amount of necrotic tissue within the wound bed including Adherent Slough. The periwound skin appearance exhibited: Dry/Scaly. The periwound skin appearance did not exhibit: Maceration. Periwound temperature was noted as No Abnormality. Original cause of wound was Blister. The date acquired was: 04/07/2023. The wound has been in treatment 3 weeks. The wound is currently classified as a Grade 2 wound with etiology of Diabetic Wound/Ulcer of the Lower Extremity and is located on the Left,Anterior Lower Leg. The wound measures 2.8cm length x 2.6cm width x 0.1cm depth; 5.718cm^2 area and 0.572cm^3 volume. There is no tunneling or undermining noted. There is a medium amount of serous drainage noted. The wound margin is distinct with the outline attached to the wound base. There is large (67-100%) red, pink granulation within the wound bed. There is a small (1-33%) amount of necrotic tissue within the wound bed including Adherent Slough. The periwound skin appearance exhibited: Maceration, Erythema. The periwound skin appearance did not exhibit: Callus, Crepitus, Excoriation, Induration, Rash, Scarring, Dry/Scaly, Atrophie [place], Cyanosis, Ecchymosis, Hemosiderin Staining, Mottled, Pallor, Rubor. The surrounding wound skin color is noted with erythema. Periwound temperature was noted as No Abnormality. Review Of Systems: Constitutional: No fever, no chills, no night sweats. No weight change. No weakness, fatigue or lethargy. No daytime sleepiness. Integumentary:reports wounds, no lesions. No rash or pruritus. No unusual bruising. No change in hair or nails. Physical exam: General Appearance: Alert, cooperative, no distress, appears stated age. Skin: See HPI all other Skin color, texture, tugor normal, no rashes or lesions. Neurologic: Alert oriented x3 Assessment: 1. Non-pressure ulceration with fatty layer exposure right lower extremity 2. Nonpressure ulcer with fatty layer exposure left lower extremity 3. Chronic venous hypertension with inflammation and ulceration of bilateral lower extremities 4. Diabetes with skin ulceration Plan: 1. Apply absorptive silver, saline moistened gauze, dry gauze, rolled gauze and secure with paper tape. Change Friday. Patient will continue to follow in the wound care center next week 05/12 at 1:00. Thank you for the consultation any questions to contact the wound care center DNP note has been reviewed and discussed with Dr. Fernandez and the impression and plan of care has been directed as dictated. Past Medical History Past Medical History: Atrial Fibrillation, Cancer, Diabetes Mellitus, Hyperlipidemia, Hypertension, Sleep Apnea/CPAP/BIPAP Additional Past Medical History / Comment(s): Basal cell carcinoma, Heart murmur History of Any Multi-Drug Resistant Organisms: MRSA Year Discovered:: 02/24/23 MDRO Source:: Right Leg Past Surgical History: No Surgical Hx Reported Additional Past Surgical History / Comment(s): Cataract surgery right eye Past Anesthesia/Blood Transfusion Reactions: No Reported Reaction Past Psychological History: Depression Smoking Status: Never smoker Past Alcohol Use History: None Reported Past Drug Use History: None Reported - Past Family History Mother Family Medical History: Diabetes Mellitus Medications and Allergies Home Medications Medication Instructions Recorded Confirmed Type Apixaban [Eliquis] 5 mg PO BID 04/11/17 05/04/23 History Cholecalciferol [Vitamin D3 (25 25 mcg PO DAILY 12/12/22 05/04/23 History Mcg = 1000 Iu)] FLUoxetine HCL [PROzac] 20 mg PO DAILY 12/12/22 05/04/23 History Ferrous Sulfate [Iron (65 MG 325 mg PO DAILY 12/12/22 05/04/23 History Elemental)] Insulin Glargine,Hum.rec.anlog 30 units SQ HS 12/12/22 05/04/23 History [Lantus Solostar Pen] Insulin Lispro [humaLOG Kwikpen] See Protocol SQ TID-W/MEALS 12/12/22 05/04/23 History Testosterone [Androgel 1.62% Gel 2 packet TOPICAL DAILY 12/12/22 05/04/23 History Packet] Acetaminophen Tab [Tylenol] 500 mg PO Q6HR PRN 01/02/23 05/04/23 History Tamsulosin HCl [Flomax] 0.4 mg PO DAILY 01/02/23 05/04/23 History Vitamin B-12 100mcg 1 tab PO DAILY 01/02/23 05/04/23 History Ipratropium-Albuterol Nebulize 3 ml INHALATION RT-TID 02/23/23 05/04/23 History [Duoneb 0.5 mg-3 mg/3 ml Soln] carvediloL [Coreg] 12.5 mg PO BID #60 tab 03/03/23 05/04/23 Rx Exenatide Microspheres [Bydureon 2 mg SQ NEVAREZ 04/18/23 05/04/23 History Bcise Auto-Injector] Furosemide [Lasix] 40 mg PO DAILY 04/18/23 05/04/23 History Potassium Chloride ER [K-Dur 20] 20 meq PO DAILY 04/18/23 05/04/23 History traMADol HCL 50 mg PO Q6H PRN #12 tab 04/24/23 05/04/23 Rx Atorvastatin [Lipitor] 10 mg PO HS 05/04/23 05/04/23 History Hydrocortisone Cream 1 applic TOPICAL BID 05/04/23 05/04/23 History [Hydrocortisone 1% Cream] Sulfamethox-Tmp 800-160Mg [Bactrim 1 tab PO Q12HR 05/04/23 05/04/23 History DS 800-160 mg] diphenhydrAMINE [Benadryl] 50 mg PO QID PRN 05/04/23 05/04/23 History diphenhydrAMINE [Benadryl] 50 mg PO TID 05/04/23 05/04/23 History predniSONE [Deltasone] 20 mg PO DAILY 05/04/23 05/04/23 History Allergies Allergy/AdvReac Type Severity Reaction Status Date / Time famotidine [From Pepcid] Allergy Unknown Verified 05/04/23 12:46 Penicillins Allergy Rash/Hives Verified 05/04/23 12:46 hydrocodone AdvReac Hallucinati Verified 05/04/23 12:46 ons lisinopril [From Prinivil] AdvReac Cough Verified 05/04/23 12:46 Physical Exam Vitals: Vital Signs Temp Pulse Resp BP Pulse Ox 05/05/23 12:34 84 18 05/05/23 12:16 80 16 05/05/23 12:15 83 12 116/79 93 L 05/05/23 12:00 98 F 80 19 116/79 92 L 05/05/23 11:45 79 24 108/58 94 L 05/05/23 11:30 76 18 108/58 92 L 05/05/23 11:15 76 20 102/70 95 05/05/23 11:00 76 23 93 L 05/05/23 10:45 81 17 95 05/05/23 10:30 76 18 109/68 93 L 05/05/23 10:15 80 21 94 L 05/05/23 10:00 80 16 107/60 93 L 05/05/23 09:45 75 22 131/72 93 L 05/05/23 09:30 75 44 H 119/93 93 L 05/05/23 09:15 73 31 H 147/80 96 05/05/23 09:08 76 16 05/05/23 09:00 71 19 128/71 96 05/05/23 08:54 75 16 94 L 05/05/23 08:45 18 132/103 94 L 05/05/23 08:30 78 27 H 114/61 95 05/05/23 08:15 73 21 95/79 96 05/05/23 08:00 99.1 F 76 15 92/36 93 L 05/05/23 07:45 75 22 112/91 91 L 05/05/23 07:30 74 15 119/66 94 L 05/05/23 07:15 18 94 L 05/05/23 07:00 72 21 114/63 95 05/05/23 06:45 74 22 115/61 96 05/05/23 06:30 77 24 87/45 97 05/05/23 06:15 72 21 108/97 94 L 05/05/23 06:00 78 25 H 105/86 96 05/05/23 05:45 77 15 109/59 97 05/05/23 05:30 72 21 109/60 98 05/05/23 05:15 72 26 H 105/55 97 05/05/23 05:00 72 11 L 99/75 96 05/05/23 04:45 67 21 104/60 97 05/05/23 04:30 73 21 104/60 98 05/05/23 04:15 70 22 101/48 97 05/05/23 04:00 98.9 F 70 14 97/60 97 05/05/23 03:45 73 24 97 05/05/23 03:30 73 14 97 05/05/23 03:15 72 18 137/119 97 05/05/23 03:00 66 20 99/81 99 05/05/23 02:45 72 18 117/91 99 05/05/23 02:30 67 22 108/53 98 05/05/23 02:15 71 13 109/56 97 05/05/23 02:00 68 21 85/58 97 05/05/23 01:45 67 20 98 05/05/23 01:30 68 19 96/47 97 05/05/23 01:15 67 21 95/42 97 05/05/23 01:00 65 21 87/45 98 05/05/23 00:45 65 11 L 98/53 97 05/05/23 00:30 66 8 L 94/48 96 05/05/23 00:15 68 22 93/46 96 05/05/23 00:02 67 19 93/46 96 05/05/23 00:00 98.6 F 68 15 96/49 96 05/04/23 23:45 67 21 88/65 97 05/04/23 23:30 67 20 107/56 96 05/04/23 23:15 70 21 89/60 96 05/04/23 23:00 70 14 105/53 96 05/04/23 22:45 67 21 88/57 95 05/04/23 22:30 67 23 106/57 98 05/04/23 22:15 66 9 L 100/48 98 05/04/23 22:00 66 16 97/58 96 05/04/23 21:45 68 11 L 95/57 95 05/04/23 21:30 71 29 H 96/73 05/04/23 21:15 70 15 84/54 87 L 05/04/23 21:00 68 17 90/57 93 L 05/04/23 20:45 65 12 91/62 95 05/04/23 20:30 67 13 105/57 95 05/04/23 20:21 64 05/04/23 20:15 66 19 102/55 97 05/04/23 20:11 67 05/04/23 20:00 98.9 F 70 24 113/54 95 05/04/23 19:45 68 19 82/48 93 L 05/04/23 19:30 68 19 101/45 96 05/04/23 19:15 68 25 H 97/49 93 L 05/04/23 19:00 68 23 94/55 95 05/04/23 18:45 72 14 75/40 94 L 05/04/23 18:30 69 21 84/71 94 L 05/04/23 18:15 71 14 88/45 93 L 05/04/23 18:00 72 22 110/53 94 L 05/04/23 17:45 68 19 99/44 94 L 05/04/23 17:30 68 14 87/61 95 05/04/23 17:15 70 14 101/48 93 L 05/04/23 17:00 73 14 101/48 87 L 05/04/23 16:30 97.6 F 68 12 86/60 94 L 05/04/23 15:50 97.9 F 05/04/23 15:15 98/75 05/04/23 15:00 66 22 95/56 95 05/04/23 14:43 106/59 05/04/23 14:30 65 65/25 94 L 05/04/23 14:27 66 24 83/53 93 L 05/04/23 14:15 69 22 66/47 94 L 05/04/23 14:00 67 96/54 94 L 05/04/23 13:39 67 18 101/50 97 05/04/23 13:30 70 18 84/63 95 05/04/23 13:16 98.8 F Intake and Output 05/04/23 05/05/23 05/05/23 22:59 06:59 14:59 Intake Total 1441.666 0237.407 1690.529 Output Total 990 480 380 Balance 130.653 6104.407 1310.529 Intake: IV 490 1240 1280 Cefepime 2 gm In Sodium 100 200 Chloride 0.9% 100 ml @ 25 mls/hr IVPB Q8H [facility] Rx#: [id number] Sodium Chloride 0.9% 1, 390 1040 780 000 ml @ 130 mls/hr IV . Q7H42M [facility] Rx#:[id number] Vancomycin 2,000 mg In 500 Sodium Chloride 0.9% 500 ml 500 ml @ 167 mls/hr IVPB ONCE [facility] Rx#: [id number] Intake, IV Titration 924.515 437.407 160.529 Amount Cefepime 2 gm In Sodium 100 100 Chloride 0.9% 100 ml @ 25 mls/hr IVPB Q8H [facility] Rx#: [id number] Magnesium Sulfate-D5w Pmx 200 1 gm In Dextrose/Water 1 100ml.bag @ 100 mls/hr IVPB Q1H [facility] Rx#: [id number] Norepinephrine 4 mg In 234.515 437.407 60.529 Sodium Chloride 0.9% 250 ml @ 0.03 MCG/KG/MIN 15. 554 mls/hr IV .[id number] [facility] Rx#:[id number] Sodium Chloride 0.9% 1, 390 000 ml @ 130 mls/hr IV . Q7H42M [facility] Rx#:[id number] Oral 1620 250 Output: Urine 990 480 380 Other: Voiding Method Indwelling Catheter Indwelling Catheter Indwelling Catheter Weight 140.2 kg Results CBC & Chem 7: 05/05/23 04:53 05/05/23 11:04 Labs: Abnormal Lab Results - Last 24 Hours (Table) 05/04/23 05/04/23 05/04/23 Range/Units 15:57 17:30 20:19 RBC (4.30-5.90) m/uL Hgb (13.0-17.5) gm/dL Hct (39.0-53.0) % RDW (11.5-15.5) % Neutrophils # (1.3-7.7) k/uL Lymphocytes # (1.0-4.8) k/uL Potassium (3.5-5.1) mmol/L Chloride (98-107) mmol/L BUN (9-20) mg/dL Creatinine (0.66-1.25) mg/dL Glucose (74-99) mg/dL POC Glucose (mg/dL) 167 H 226 H (70-110) mg/dL Calcium (8.4-10.2) mg/dL Phosphorus (2.5-4.5) mg/dL Total Protein (6.3-8.2) g/dL Albumin (3.5-5.0) g/dL Urine Glucose (UA) Trace H (Negative) 05/05/23 05/05/23 05/05/23 Range/Units 01:50 04:53 06:55 RBC 3.88 L (4.30-5.90) m/uL Hgb 11.5 L (13.0-17.5) gm/dL Hct 35.3 L (39.0-53.0) % RDW 16.0 H (11.5-15.5) % Neutrophils # 9.0 H (1.3-7.7) k/uL Lymphocytes # 0.6 L (1.0-4.8) k/uL Potassium 5.8 H (3.5-5.1) mmol/L Chloride 110 H (98-107) mmol/L BUN 51 H (9-20) mg/dL Creatinine 1.57 H (0.66-1.25) mg/dL Glucose 104 H (74-99) mg/dL POC Glucose (mg/dL) (70-110) mg/dL Calcium 7.1 L (8.4-10.2) mg/dL Phosphorus 5.9 H 4.6 H (2.5-4.5) mg/dL Total Protein 5.0 L (6.3-8.2) g/dL Albumin 2.3 L (3.5-5.0) g/dL Urine Glucose (UA) (Negative) 05/05/23 05/05/23 Range/Units 11:04 11:11 RBC (4.30-5.90) m/uL Hgb (13.0-17.5) gm/dL Hct (39.0-53.0) % RDW (11.5-15.5) % Neutrophils # (1.3-7.7) k/uL Lymphocytes # (1.0-4.8) k/uL Potassium 5.2 H (3.5-5.1) mmol/L Chloride (98-107) mmol/L BUN (9-20) mg/dL Creatinine (0.66-1.25) mg/dL Glucose (74-99) mg/dL POC Glucose (mg/dL) 140 H (70-110) mg/dL Calcium (8.4-10.2) mg/dL Phosphorus (2.5-4.5) mg/dL Total Protein (6.3-8.2) g/dL Albumin (3.5-5.0) g/dL Urine Glucose (UA) (Negative) Microbiology - Last 24 Hours (Table) 05/04/23 05:04 Blood Culture - Preliminary Blood 05/04/23 05:04 Blood Culture - Preliminary Blood Assessment and Plan (1) Non-pressure chronic ulcer of other part of left lower leg with fat layer exposed Current Visit: Yes Status: Acute Code(s): L97.822 - NON-PRS CHRONIC ULCER OTH PRT L LOW LEG W FAT LAYER EXPOSED SNOMED Code(s): 36773165643678422 (2) Non-pressure chronic ulcer of other part of right lower leg with fat layer exposed Current Visit: Yes Status: Acute Code(s): L97.812 - NON-PRS CHRONIC ULCER OTH PRT R LOW LEG W FAT LAYER EXPOSED SNOMED Code(s): 28184214361032791 (3) Chronic venous hypertension (idiopathic) with ulcer and inflammation of bilateral lower extremity Current Visit: Yes Status: Acute Code(s): I87.333 - CHRONIC VENOUS HTN W ULCER AND INFLAM OF BILATERAL LOW EXTRM SNOMED Code(s): 654751835622364 (4) Type 2 diabetes mellitus with other skin ulcer Current Visit: No Status: Acute Code(s): E11.622 - TYPE 2 DIABETES MELLITUS WITH OTHER SKIN ULCER; L98.499 - NON-PRESSURE CHRONIC ULCER OF SKIN OF SITES W UNSP SEVERITY SNOMED Code(s): 004588819
--- NOTE | 2023-05-05 14:07 | P.CNPUL ---
History of Present Illness Consult date: 05/05/23 Requesting physician: Vinod Lee Reason for consult: other (Sepsis and hypotension) Chief complaint: Fever History of present illness: This is a 68-year-old white male with history of multiple medical problems including type 2 diabetes, hypertension, obstructive sleep apnea syndrome, on CP AP, history of chronic atrial fibrillation, and history of chronic right lower extremity venous stasis ulcer and recurrent episodes of cellulitis. Patient was sent from retirement to the hospital mostly with 1 day history of intermittent fevers. Patient had no other symptoms, no headache, no symptoms of URI, no cough no shortness of breath, no wheezing, no nausea or vomiting, no abdominal pain, no diarrhea. He had a chronic nonhealing wound on the right lower extremity and this has been present for quite some time, denies any purulent or foul-smelling drainage from that area specifically. In the ER, the patient was noted to have a temp of 103, he was also tachycardic, and hypotensive with evidence of leukocytosis and his lactic acid was 2.6. Patient tested negative for COVID-19 infections tested negative for RSV and for influenza. Chest x-ray showed no evidence of any acute changes. Patient was empirically placed on vancomycin and cefepime, he was given fluid boluses and he also required placement temporarily on norepinephrine. However this morning his norepinephrine was discontinued and the patient seems to continue to have relatively normal blood pressure despite of discontinuation of norepinephrine. The meantime the patient was placed empirically on broad-spectrum antibiotics initially on cefepime and vancomycin. Considering the patient required pressors and required ICU admission, this consult was initiated. Review of Systems Constitutional: Mostly fever no weight loss. HEENT: Negative Pulmonary: Negative Cardiac: Negative GI: Negative Genitourinary: Negative Musculoskeletal: Negative Hematologic: Negative Psychiatric: Negative Neurologic: Negative Skin: As noted in HPI Past Medical History Past Medical History: Atrial Fibrillation, Cancer, Diabetes Mellitus, Hyperlipidemia, Hypertension, Sleep Apnea/CPAP/BIPAP Additional Past Medical History / Comment(s): Basal cell carcinoma, Heart murmur History of Any Multi-Drug Resistant Organisms: MRSA Date of last positivie culture/infection: 02/24/23 MDRO Source:: Right Leg Past Surgical History: No Surgical Hx Reported Additional Past Surgical History / Comment(s): Cataract surgery right eye Past Anesthesia/Blood Transfusion Reactions: No Reported Reaction Past Psychological History: Depression Smoking Status: Never smoker Past Alcohol Use History: None Reported Past Drug Use History: None Reported - Past Family History Mother Family Medical History: Diabetes Mellitus Medications and Allergies Home Medications Medication Instructions Recorded Confirmed Type Apixaban [Eliquis] 5 mg PO BID 04/11/17 05/04/23 History Cholecalciferol [Vitamin D3 (25 25 mcg PO DAILY 12/12/22 05/04/23 History Mcg = 1000 Iu)] FLUoxetine HCL [PROzac] 20 mg PO DAILY 12/12/22 05/04/23 History Ferrous Sulfate [Iron (65 MG 325 mg PO DAILY 12/12/22 05/04/23 History Elemental)] Insulin Glargine,Hum.rec.anlog 30 units SQ HS 12/12/22 05/04/23 History [Lantus Solostar Pen] Insulin Lispro [humaLOG Kwikpen] See Protocol SQ TID-W/MEALS 12/12/22 05/04/23 History Testosterone [Androgel 1.62% Gel 2 packet TOPICAL DAILY 12/12/22 05/04/23 History Packet] Acetaminophen Tab [Tylenol] 500 mg PO Q6HR PRN 01/02/23 05/04/23 History Tamsulosin HCl [Flomax] 0.4 mg PO DAILY 01/02/23 05/04/23 History Vitamin B-12 100mcg 1 tab PO DAILY 01/02/23 05/04/23 History Ipratropium-Albuterol Nebulize 3 ml INHALATION RT-TID 02/23/23 05/04/23 History [Duoneb 0.5 mg-3 mg/3 ml Soln] carvediloL [Coreg] 12.5 mg PO BID #60 tab 03/03/23 05/04/23 Rx Exenatide Microspheres [Bydureon 2 mg SQ NEVAREZ 04/18/23 05/04/23 History Bcise Auto-Injector] Furosemide [Lasix] 40 mg PO DAILY 04/18/23 05/04/23 History Potassium Chloride ER [K-Dur 20] 20 meq PO DAILY 04/18/23 05/04/23 History traMADol HCL 50 mg PO Q6H PRN #12 tab 04/24/23 05/04/23 Rx Atorvastatin [Lipitor] 10 mg PO HS 05/04/23 05/04/23 History Hydrocortisone Cream 1 applic TOPICAL BID 05/04/23 05/04/23 History [Hydrocortisone 1% Cream] Sulfamethox-Tmp 800-160Mg [Bactrim 1 tab PO Q12HR 05/04/23 05/04/23 History DS 800-160 mg] diphenhydrAMINE [Benadryl] 50 mg PO QID PRN 05/04/23 05/04/23 History diphenhydrAMINE [Benadryl] 50 mg PO TID 05/04/23 05/04/23 History predniSONE [Deltasone] 20 mg PO DAILY 05/04/23 05/04/23 History Allergies Allergy/AdvReac Type Severity Reaction Status Date / Time famotidine [From Pepcid] Allergy Unknown Verified 05/04/23 12:46 Penicillins Allergy Rash/Hives Verified 05/04/23 12:46 hydrocodone AdvReac Hallucinati Verified 05/04/23 12:46 ons lisinopril [From Prinivil] AdvReac Cough Verified 05/04/23 12:46 Physical Exam Vitals: Vital Signs Temp Pulse Resp BP Pulse Ox 05/05/23 13:00 81 21 112/68 95 05/05/23 12:34 84 18 05/05/23 12:30 77 30 H 116/79 100 05/05/23 12:16 80 16 05/05/23 12:15 83 12 116/79 93 L 05/05/23 12:00 98 F 80 19 116/79 92 L 05/05/23 11:45 79 24 108/58 94 L 05/05/23 11:30 76 18 108/58 92 L 05/05/23 11:15 76 20 102/70 95 05/05/23 11:00 76 23 93 L 05/05/23 10:45 81 17 95 05/05/23 10:30 76 18 109/68 93 L 05/05/23 10:15 80 21 94 L 05/05/23 10:00 80 16 107/60 93 L 05/05/23 09:45 75 22 131/72 93 L 05/05/23 09:30 75 44 H 119/93 93 L 05/05/23 09:15 73 31 H 147/80 96 05/05/23 09:08 76 16 05/05/23 09:00 71 19 128/71 96 05/05/23 08:54 75 16 94 L 05/05/23 08:45 18 132/103 94 L 05/05/23 08:30 78 27 H 114/61 95 05/05/23 08:15 73 21 95/79 96 05/05/23 08:00 99.1 F 76 15 92/36 93 L 05/05/23 07:45 75 22 112/91 91 L 05/05/23 07:30 74 15 119/66 94 L 05/05/23 07:15 18 94 L 05/05/23 07:00 72 21 114/63 95 05/05/23 06:45 74 22 115/61 96 05/05/23 06:30 77 24 87/45 97 05/05/23 06:15 72 21 108/97 94 L 05/05/23 06:00 78 25 H 105/86 96 05/05/23 05:45 77 15 109/59 97 05/05/23 05:30 72 21 109/60 98 05/05/23 05:15 72 26 H 105/55 97 05/05/23 05:00 72 11 L 99/75 96 05/05/23 04:45 67 21 104/60 97 05/05/23 04:30 73 21 104/60 98 05/05/23 04:15 70 22 101/48 97 05/05/23 04:00 98.9 F 70 14 97/60 97 05/05/23 03:45 73 24 97 05/05/23 03:30 73 14 97 05/05/23 03:15 72 18 137/119 97 05/05/23 03:00 66 20 99/81 99 05/05/23 02:45 72 18 117/91 99 05/05/23 02:30 67 22 108/53 98 05/05/23 02:15 71 13 109/56 97 05/05/23 02:00 68 21 85/58 97 05/05/23 01:45 67 20 98 05/05/23 01:30 68 19 96/47 97 05/05/23 01:15 67 21 95/42 97 05/05/23 01:00 65 21 87/45 98 05/05/23 00:45 65 11 L 98/53 97 05/05/23 00:30 66 8 L 94/48 96 05/05/23 00:15 68 22 93/46 96 05/05/23 00:02 67 19 93/46 96 05/05/23 00:00 98.6 F 68 15 96/49 96 05/04/23 23:45 67 21 88/65 97 05/04/23 23:30 67 20 107/56 96 05/04/23 23:15 70 21 89/60 96 05/04/23 23:00 70 14 105/53 96 05/04/23 22:45 67 21 88/57 95 05/04/23 22:30 67 23 106/57 98 05/04/23 22:15 66 9 L 100/48 98 05/04/23 22:00 66 16 97/58 96 05/04/23 21:45 68 11 L 95/57 95 05/04/23 21:30 71 29 H 96/73 05/04/23 21:15 70 15 84/54 87 L 05/04/23 21:00 68 17 90/57 93 L 05/04/23 20:45 65 12 91/62 95 05/04/23 20:30 67 13 105/57 95 05/04/23 20:21 64 05/04/23 20:15 66 19 102/55 97 05/04/23 20:11 67 05/04/23 20:00 98.9 F 70 24 113/54 95 05/04/23 19:45 68 19 82/48 93 L 05/04/23 19:30 68 19 101/45 96 05/04/23 19:15 68 25 H 97/49 93 L 05/04/23 19:00 68 23 94/55 95 05/04/23 18:45 72 14 75/40 94 L 05/04/23 18:30 69 21 84/71 94 L 05/04/23 18:15 71 14 88/45 93 L 05/04/23 18:00 72 22 110/53 94 L 05/04/23 17:45 68 19 99/44 94 L 05/04/23 17:30 68 14 87/61 95 05/04/23 17:15 70 14 101/48 93 L 05/04/23 17:00 73 14 101/48 87 L 05/04/23 16:30 97.6 F 68 12 86/60 94 L 05/04/23 15:50 97.9 F 05/04/23 15:15 98/75 05/04/23 15:00 66 22 95/56 95 05/04/23 14:43 106/59 05/04/23 14:30 65 65/25 94 L 05/04/23 14:27 66 24 83/53 93 L 05/04/23 14:15 69 22 66/47 94 L 05/04/23 14:00 67 96/54 94 L Intake and Output 05/04/23 05/05/23 05/05/23 22:59 06:59 14:59 Intake Total 4619.731 1019.407 1820.529 Output Total 990 480 460 Balance 837.738 5230.407 1360.529 Intake: IV 490 1240 1410 Cefepime 2 gm In Sodium 100 200 Chloride 0.9% 100 ml @ 25 mls/hr IVPB Q8H [facility] Rx#: [id number] Sodium Chloride 0.9% 1, 390 1040 910 000 ml @ 130 mls/hr IV . Q7H42M [facility] Rx#:[id number] Vancomycin 2,000 mg In 500 Sodium Chloride 0.9% 500 ml 500 ml @ 167 mls/hr IVPB ONCE [facility] Rx#: [id number] Intake, IV Titration 924.515 437.407 160.529 Amount Cefepime 2 gm In Sodium 100 100 Chloride 0.9% 100 ml @ 25 mls/hr IVPB Q8H [facility] Rx#: [id number] Magnesium Sulfate-D5w Pmx 200 1 gm In Dextrose/Water 1 100ml.bag @ 100 mls/hr IVPB Q1H [facility] Rx#: [id number] Norepinephrine 4 mg In 234.515 437.407 60.529 Sodium Chloride 0.9% 250 ml @ 0.03 MCG/KG/MIN 15. 554 mls/hr IV .[id number] [facility] Rx#:[id number] Sodium Chloride 0.9% 1, 390 000 ml @ 130 mls/hr IV . Q7H42M [facility] Rx#:[id number] Oral 1620 250 Output: Urine 990 480 460 Other: Voiding Method Indwelling Catheter Indwelling Catheter Indwelling Catheter Weight 140.2 kg Physical Exam: Revealed a 68-year-old white male in no distress Head: Atraumatic, normocephalic. HEENT:[Neck is supple.] [No neck masses.] [No thyromegaly.] [No JVD.] Chest: [Clear throughout, no crackles, no rhonchi, no wheezes.] Cardiac Exam: [Normal S1 and S2, no S3 gallop, no murmur.] Abdomen: [Soft, nontender, no megaly, no rebound, no guarding, normal bowel sounds.] Extremities: There is evidence of chronic ulcerations of bilateral lower extremities, and chronic inflammation, no purulent discharge noted. Pictures of lower extremities were reviewed, both lower extremities are wrapped with sterile dressing Neurological Exam: [No focal neurologic deficit.] Alert oriented 3. Psychiatric: Normal mood, affect and normal mental status exam. Skin: As noted above with chronic superficial inflammation and cellulitis of both lower extremities. Results - Laboratory Findings CBC and BMP: 05/05/23 04:53 05/05/23 11:04 PT/INR, D-dimer PT 11.8 sec (9.0-12.0) 05/04/23 05:04 INR 1.1 (<1.2) 05/04/23 05:04 Abnormal lab findings: Abnormal Labs 05/04/23 05/04/23 05/04/23 05:04 05:04 05:04 WBC 14.6 H RBC 3.48 L Hgb 10.0 L D Hct 31.2 L RDW 15.7 H Plt Count 459 H Neutrophils # 14.1 H Lymphocytes # 0.2 L Potassium 5.6 H Chloride BUN 43 H Creatinine Glucose 113 H POC Glucose (mg/dL) Plasma Lactic Acid Tho 2.6 H* Calcium Phosphorus 1.6 L Magnesium 1.5 L Total Protein Albumin 3.3 L Urine Glucose (UA) 05/04/23 05/04/23 05/04/23 12:54 15:57 17:30 WBC RBC Hgb Hct RDW Plt Count Neutrophils # Lymphocytes # Potassium Chloride BUN Creatinine Glucose POC Glucose (mg/dL) 153 H 167 H Plasma Lactic Acid Tho Calcium Phosphorus Magnesium Total Protein Albumin Urine Glucose (UA) Trace H 05/04/23 05/05/23 05/05/23 20:19 01:50 04:53 WBC RBC 3.88 L Hgb 11.5 L Hct 35.3 L RDW 16.0 H Plt Count Neutrophils # 9.0 H Lymphocytes # 0.6 L Potassium Chloride BUN Creatinine Glucose POC Glucose (mg/dL) 226 H Plasma Lactic Acid Tho Calcium Phosphorus 5.9 H Magnesium Total Protein Albumin Urine Glucose (UA) 05/05/23 05/05/23 05/05/23 06:55 11:04 11:11 WBC RBC Hgb Hct RDW Plt Count Neutrophils # Lymphocytes # Potassium 5.8 H 5.2 H Chloride 110 H BUN 51 H Creatinine 1.57 H Glucose 104 H POC Glucose (mg/dL) 140 H Plasma Lactic Acid Tho Calcium 7.1 L Phosphorus 4.6 H Magnesium Total Protein 5.0 L Albumin 2.3 L Urine Glucose (UA) - Diagnostic Findings Chest x-ray: image reviewed (Chest x-ray showed no evidence of active disease.) Additional studies: Lower extremities Doppler negative for DVT bilaterally. Assessment and Plan Assessment: Impression: Acute sepsis and septic shock, most likely source is right lower extremity cellulitis. Acute kidney injury secondary to above Chronic lower extremity cellulitis Hyperkalemia secondary to hemolysis and acute kidney injury Insulin-dependent type 2 diabetes possible diabetic nephropathy Dyslipidemia Paroxysmal atrial fibrillation History of depression Recommendation: Continue IV fluids Continue broad-spectrum antibiotics Awaiting cultures/blood cultures mostly so far are negative Continue to hold norepinephrine for now since the blood pressures under control Consider transferring the patient to a regular medical floor if he tolerates being off norepinephrine for the next 8 hours Resume home meds. We will continue to follow Continue GI and DVT prophylaxis. Time with Patient: Greater than 30
[2023-05-05 16:02] LABS: Glucose,Whole Blood 131 mg/dL (70-110)
[2023-05-05 21:11] LABS: Glucose,Whole Blood 156 mg/dL (70-110)
[2023-05-05] MEDS: ATORVASTATIN 10 MG TAB PO SCH (22:01)
[2023-05-05] MEDS: INSULIN DETEMIR (LEVEMIR) 100 UNIT/ML SYR SQ SCH (22:02)
[2023-05-06 02:37] LABS: Glucose,Whole Blood 117 mg/dL (70-110)
[2023-05-06 07:40] LABS: Glucose,Whole Blood 66 mg/dL (70-110)
[2023-05-06 07:55] LABS: ALT 31 U/L (4-49); AST 40 U/L (17-59); African American GFR (CKD) 72 (>60 ml/min/1.73 sqM); Albumin 2.5 g/dL (3.5-5.0); Albumin/Globulin Ratio 0.9; Alkaline Phosphatase 92 U/L (38-126); Anion Gap 5 mmol/L; Blood Urea Nitrogen 37 mg/dL (9-20); Calcium 7.3 mg/dL (8.4-10.2); Carbon Dioxide 22 mmol/L (22-30); Chloride 112 mmol/L (98-107); Globulin 2.7 g/dL; Glucose 72 mg/dL (74-99); Magnesium 1.9 mg/dL (1.6-2.3); Non-African American GFR(CKD) 62 (>60 ml/min/1.73 sqM); Potassium 4.5 mmol/L (3.5-5.1); Sodium 139 mmol/L (137-145); Total Bilirubin 0.4 mg/dL (0.2-1.3); Total Protein 5.2 g/dL (6.3-8.2)
[2023-05-06] MEDS: IPRATROPIUM-ALBUTEROL 3 ML NEB INHALATION SCH ×3 (07:55→18:42)
[2023-05-06] MEDS: VANCOMYCIN 2,000 MG in SODIUM CHLORIDE 0.9% 500 ML 500 ML IVPB SCH (08:10)
[2023-05-06] MEDS: FLUoxetine HCL 20 MG CAP PO SCH (08:10)
[2023-05-06] MEDS: CHOLECALCIFEROL 25 MCG (1000 IU) TABLET PO SCH (08:10)
[2023-05-06] MEDS: CYANOCOBALAMIN 500 MCG TAB PO SCH (08:10)
[2023-05-06] MEDS: TAMSULOSIN 0.4 MG CAP.ER.24H PO SCH (08:10)
[2023-05-06] MEDS: FERROUS SULFATE 325 MG TAB PO SCH (08:10)
[2023-05-06] MEDS: APIXABAN 5 MG TAB PO SCH ×2 (08:10→19:57)
[2023-05-06] MEDS: INSULIN ASPART (NovoLOG) 100 UNIT/ML VIAL SQ SCH ×4 (08:11→21:34)
[2023-05-06] MEDS: PANTOPRAZOLE 40 MG/10 ML VIAL IV SCH (08:11)
[2023-05-06] MEDS: SODIUM CHLORIDE 0.9% 1,000 ML IV SCH ×2 (08:13→18:15)
[2023-05-06 08:18] LABS: Glucose,Whole Blood 86 mg/dL (70-110)
[2023-05-06] MEDS: CEFEPIME 2 GM in SODIUM CHLORIDE 0.9% 100 ML IVPB SCH ×2 (10:03→16:21)
[2023-05-06 11:06] LABS: Basophils # (A) 0.04 X 10*3/uL (0.00-0.10); Basophils % (A) 1.1 %; Eosinophils # (A) 0.17 X 10*3/uL (0.04-0.35); Eosinophils % (A) 4.6 %; HCT 31.6 % (39.6-50.0); HGB 9.8 d/dL (13.0-17.0); Lymphocytes # (A) 0.87 X 10*3/uL (0.90-5.00); Lymphocytes % (A) 23.4 %; MCH 28.2 pg (27.0-32.0); MCV 90.8 FL (80.0-97.0); Mean Platelet Volume 9.3 FL (9.5-12.2); Monocytes % (A) 8.1 %; NRBC Per 100 WBC 0 X 10*3/uL (0.00-0.01); Neutrophils # (A) 2.32 X 10*3/uL (1.80-7.70); Neutrophils % (A) 62.3 %; Platelet Count 193 X 10*3/uL (140-440); RBC 3.48 X 10*6/uL (4.40-5.60); RDW 16.1 % (11.5-14.5); WBC 3.72 X 10*3/uL (4.50-10.00)
--- NOTE | 2023-05-06 11:14 | P.PN ---
Subjective Progress Note Date: 05/06/23 Principal diagnosis: Lower extremity diabetic ulcers Patient is seen and examined today as a follow-up. He still seems mildly confused. Denies any pain to his lower extremities at rest or with ambulation. He is currently being followed by infectious disease and wound care. He remains on IV Maxipime and vancomycin. He remains afebrile. No acute changes through the night. He underwent lower extremity ultrasound which is basically nondiagnostic as patient could not tolerate pressure. Objective - Vital Signs Vital signs: Vital Signs Temp 98.5 F 05/06/23 07:31 Pulse 81 05/06/23 08:07 Resp 21 05/06/23 07:31 BP 138/73 05/06/23 07:31 Pulse Ox 95 05/06/23 07:31 FiO2 Intake & Output 05/05/23 05/06/23 05/06/23 18:59 06:59 18:59 Intake Total 2820.529 Output Total 1040 1200 Balance 1780.529 -1200 Intake: IV 2060 Sodium Chloride 0.9% 1, 1560 000 ml @ 130 mls/hr IV . Q7H42M [facility] Rx#:[id number] Vancomycin 2,000 mg In 500 Sodium Chloride 0.9% 500 ml 500 ml @ 167 mls/hr IVPB ONCE [facility] Rx#: [id number] Intake, IV Titration 160.529 Amount Cefepime 2 gm In Sodium 100 Chloride 0.9% 100 ml @ 25 mls/hr IVPB Q8H [facility] Rx#: [id number] Norepinephrine 4 mg In 60.529 Sodium Chloride 0.9% 250 ml @ 0.03 MCG/KG/MIN 15. 554 mls/hr IV .[id number] [facility] Rx#:[id number] Oral 600 Output: Urine 1040 1200 Other: Voiding Method Indwelling Catheter Indwelling Catheter Indwelling Catheter - Exam General appearance: The patient is alert, oriented, appears in no acute dis tress. Obese. HET: Head is normocephalic and atraumatic. Neck: Supple. Abdomen: Soft, nondistended. Extremities: Bilateral lower extremity swelling, scaling skin. Right lower extremity diabetic ulcers as well as left lower extremity diabetic ulcer. Good capillary refill. Neurological: No focal deficits. Alert and oriented. - Labs CBC & Chem 7: 05/05/23 04:53 05/06/23 06:27 Labs: Abnormal Lab Results - Last 24 Hours (Table) 05/05/23 05/05/23 05/05/23 Range/Units 11:04 11:11 16:01 Potassium 5.2 H (3.5-5.1) mmol/L Chloride (98-107) mmol/L BUN (9-20) mg/dL Glucose (74-99) mg/dL POC Glucose (mg/dL) 140 H 131 H (70-110) mg/dL Calcium (8.4-10.2) mg/dL Total Protein (6.3-8.2) g/dL Albumin (3.5-5.0) g/dL 05/05/23 05/06/23 05/06/23 Range/Units 21:07 02:35 06:27 Potassium (3.5-5.1) mmol/L Chloride 112 H (98-107) mmol/L BUN 37 H (9-20) mg/dL Glucose 72 L (74-99) mg/dL POC Glucose (mg/dL) 156 H 117 H (70-110) mg/dL Calcium 7.3 L (8.4-10.2) mg/dL Total Protein 5.2 L (6.3-8.2) g/dL Albumin 2.5 L (3.5-5.0) g/dL 05/06/23 Range/Units 07:39 Potassium (3.5-5.1) mmol/L Chloride (98-107) mmol/L BUN (9-20) mg/dL Glucose (74-99) mg/dL POC Glucose (mg/dL) 66 L (70-110) mg/dL Calcium (8.4-10.2) mg/dL Total Protein (6.3-8.2) g/dL Albumin (3.5-5.0) g/dL Microbiology - Last 24 Hours (Table) 05/04/23 05:04 Blood Culture - Preliminary Blood 05/04/23 05:04 Blood Culture - Preliminary Blood Assessment and Plan Assessment: 1. Bilateral lower extremity diabetic ulcers 2. Sepsis, resolving 3. Diabetes mellitus with suspected significant diabetic vascular disease 4. History of Atrial fibrillation Plan: Continue with local wound care recommended by wound clinic. Bilateral lower extremities with Andrea wrap stood up improve swelling. There is no indication for any vascular surgical intervention at this time. Patient can certainly follow- up as an outpatient with vascular surgery and would like to consider repeating arterial studies at that time. Continue with recommendations from infectious disease. Thank you for this consultation, we will sign off at this time. The impression and plan of care has been dictated as directed. I performed a history and examination of this patient, discussed the same with the dictator. I agree with the dictator's note ,documented as a scribe. Any additional findings or plans will be noted.
--- NOTE | 2023-05-06 11:59 | P.PN ---
Subjective Progress Note Date: 05/05/23 Principal diagnosis: Bilateral lower extremity cellulitis Patient is a 68-year-old male with a past medical history significant for atrial fibrillation diabetes mellitus hypertension hyperlipidemia sleep apnea patient did have a history of right lower extremity venous stasis ulcer and recurrent episodes of cellulitis patient has been sent to the ER from the half-way for evaluation of fever and concern for bilateral lower extremity cellulitis patient in the right leg. On today's evaluation that is 05/05/2023, the patient denies any fever or any chills, the patient is breathing comfortably on 2 L nasal cannula oxygen, patient denies abdominal pain and no nausea/vomiting /diarrhea,the patient denies chest pain or cough, denies any worsening pain to the lower extremity. Patient white count normalized to 10.1, creatinine is 1.57, blood culture has been negative Objective - Vital Signs Vital signs: Vital Signs Temp 99.1 F 05/05/23 08:00 Pulse 76 05/05/23 11:00 Resp 23 05/05/23 11:00 BP 109/68 05/05/23 10:30 Pulse Ox 93 L 05/05/23 11:00 FiO2 Intake & Output 05/04/23 05/05/23 05/05/23 18:59 06:59 18:59 Intake Total 517.813 6627.020 1460.529 Output Total 710 760 340 Balance -48.383 3301.020 1120.529 Weight 136.078 kg 140.2 kg Intake: IV 1730 1150 Cefepime 2 gm In Sodium 300 Chloride 0.9% 100 ml @ 25 mls/hr IVPB Q8H [facility] Rx#: [id number] Sodium Chloride 0.9% 1, 1430 650 000 ml @ 130 mls/hr IV . Q7H42M [facility] Rx#:[id number] Vancomycin 2,000 mg In 500 Sodium Chloride 0.9% 500 ml 500 ml @ 167 mls/hr IVPB ONCE [facility] Rx#: [id number] Intake, IV Titration 661.617 711.020 160.529 Amount Cefepime 2 gm In Sodium 100 100 Chloride 0.9% 100 ml @ 25 mls/hr IVPB Q8H [facility] Rx#: [id number] Magnesium Sulfate-D5w Pmx 200 1 gm In Dextrose/Water 1 100ml.bag @ 100 mls/hr IVPB Q1H [facility] Rx#: [id number] Norepinephrine 4 mg In 101.617 581.020 60.529 Sodium Chloride 0.9% 250 ml @ 0.03 MCG/KG/MIN 15. 554 mls/hr IV .[id number] [facility] Rx#:[id number] Sodium Chloride 0.9% 1, 260 130 000 ml @ 130 mls/hr IV . Q7H42M [facility] Rx#:[id number] Oral 1620 150 Output: Urine 710 760 340 Other: Voiding Method Indwelling Catheter Indwelling Catheter Indwelling Catheter - Exam GENERAL DESCRIPTION: An elderly male lying in bed in no distress RESPIRATORY SYSTEM: Unlabored breathing , decreased breath sounds at bases HEART: S1 S2 regular rate and rhythm , ABDOMEN: Soft , no tenderness EXTREMITIES: Bilateral extremity with swelling redness wounds are currently dressed minimal drainage - Labs CBC & Chem 7: 05/06/23 06:27 05/06/23 06:27 Labs: Abnormal Lab Results - Last 24 Hours (Table) 05/04/23 05/04/23 05/04/23 Range/Units 12:54 15:57 17:30 RBC (4.30-5.90) m/uL Hgb (13.0-17.5) gm/dL Hct (39.0-53.0) % RDW (11.5-15.5) % Neutrophils # (1.3-7.7) k/uL Lymphocytes # (1.0-4.8) k/uL Potassium (3.5-5.1) mmol/L Chloride (98-107) mmol/L BUN (9-20) mg/dL Creatinine (0.66-1.25) mg/dL Glucose (74-99) mg/dL POC Glucose (mg/dL) 153 H 167 H (70-110) mg/dL Calcium (8.4-10.2) mg/dL Phosphorus (2.5-4.5) mg/dL Total Protein (6.3-8.2) g/dL Albumin (3.5-5.0) g/dL Urine Glucose (UA) Trace H (Negative) 05/04/23 05/05/23 05/05/23 Range/Units 20:19 01:50 04:53 RBC 3.88 L (4.30-5.90) m/uL Hgb 11.5 L (13.0-17.5) gm/dL Hct 35.3 L (39.0-53.0) % RDW 16.0 H (11.5-15.5) % Neutrophils # 9.0 H (1.3-7.7) k/uL Lymphocytes # 0.6 L (1.0-4.8) k/uL Potassium (3.5-5.1) mmol/L Chloride (98-107) mmol/L BUN (9-20) mg/dL Creatinine (0.66-1.25) mg/dL Glucose (74-99) mg/dL POC Glucose (mg/dL) 226 H (70-110) mg/dL Calcium (8.4-10.2) mg/dL Phosphorus 5.9 H (2.5-4.5) mg/dL Total Protein (6.3-8.2) g/dL Albumin (3.5-5.0) g/dL Urine Glucose (UA) (Negative) 05/05/23 Range/Units 06:55 RBC (4.30-5.90) m/uL Hgb (13.0-17.5) gm/dL Hct (39.0-53.0) % RDW (11.5-15.5) % Neutrophils # (1.3-7.7) k/uL Lymphocytes # (1.0-4.8) k/uL Potassium 5.8 H (3.5-5.1) mmol/L Chloride 110 H (98-107) mmol/L BUN 51 H (9-20) mg/dL Creatinine 1.57 H (0.66-1.25) mg/dL Glucose 104 H (74-99) mg/dL POC Glucose (mg/dL) (70-110) mg/dL Calcium 7.1 L (8.4-10.2) mg/dL Phosphorus 4.6 H (2.5-4.5) mg/dL Total Protein 5.0 L (6.3-8.2) g/dL Albumin 2.3 L (3.5-5.0) g/dL Urine Glucose (UA) (Negative) Assessment and Plan (1) Bilateral cellulitis of lower leg Current Visit: Yes Status: Acute Code(s): L03.116 - CELLULITIS OF LEFT LOWER LIMB; L03.115 - CELLULITIS OF RIGHT LOWER LIMB SNOMED Code(s): 833817931 Plan: 1patient present to hospital with sepsis in this patient with a fever tachycardia elevated white count source likely right lower extremity cellulitis in this patient who did have a history of chronic venous stasis ulcer and history of recurrent cellulitis and patient has previously grown MRSA and Klebsiella from these wounds though last admission cultures were negative patient chest x-ray reported negative for any pneumonia patient is breathing comfortably on room air UA was negative and abdominal soft on clinical Examination 2-patient will continue patient on vancomycin and cefepime while waiting for the culture to finalize 3-local wound care with Aquacel silver dressing followed by Andrea wrap to keep the swelling down Dictation was produced using [employer] dictation software. please excuse any grammatical, word or spelling errors. Time with Patient: Less than 30
--- NOTE | 2023-05-06 12:01 | P.PN ---
Subjective Progress Note Date: 05/06/23 Principal diagnosis: Bilateral lower extremity cellulitis Patient is a 68-year-old male with a past medical history significant for atrial fibrillation diabetes mellitus hypertension hyperlipidemia sleep apnea patient did have a history of right lower extremity venous stasis ulcer and recurrent episodes of cellulitis patient has been sent to the ER from the detention for evaluation of fever and concern for bilateral lower extremity cellulitis patient in the right leg. On today's evaluation that is 05/06/2023, the patient, the patient remains to be afebrile the patient is breathing comfortably on room air, the patient denies having any chest pain shortness of breath or cough, patient denies abdominal pain and no nausea/vomiting /diarrhea, the patient pain to the lower extremity has decreased in intensity. Patient white count 3.72, creatinine is 1.18, blood culture has been negative Objective - Vital Signs Vital signs: Vital Signs Temp 98.5 F 05/06/23 07:31 Pulse 80 05/06/23 11:35 Resp 21 05/06/23 07:31 BP 138/73 05/06/23 07:31 Pulse Ox 95 05/06/23 07:31 FiO2 Intake & Output 05/05/23 05/06/23 05/06/23 18:59 06:59 18:59 Intake Total 2820.529 Output Total 1040 1200 Balance 1780.529 -1200 Intake: IV 2060 Sodium Chloride 0.9% 1, 1560 000 ml @ 130 mls/hr IV . Q7H42M [facility] Rx#:[id number] Vancomycin 2,000 mg In 500 Sodium Chloride 0.9% 500 ml 500 ml @ 167 mls/hr IVPB ONCE [facility] Rx#: [id number] Intake, IV Titration 160.529 Amount Cefepime 2 gm In Sodium 100 Chloride 0.9% 100 ml @ 25 mls/hr IVPB Q8H [facility] Rx#: [id number] Norepinephrine 4 mg In 60.529 Sodium Chloride 0.9% 250 ml @ 0.03 MCG/KG/MIN 15. 554 mls/hr IV .[id number] [facility] Rx#:[id number] Oral 600 Output: Urine 1040 1200 Other: Voiding Method Indwelling Catheter Indwelling Catheter Indwelling Catheter - Exam GENERAL DESCRIPTION: An elderly male lying in bed in no distress RESPIRATORY SYSTEM: Unlabored breathing , decreased breath sounds at bases HEART: S1 S2 regular rate and rhythm , ABDOMEN: Soft , no tenderness EXTREMITIES: Bilateral extremity are currently wrapped in Andrea wrap dressing was just changed so it was not opened - Labs CBC & Chem 7: 05/06/23 06:27 05/06/23 06:27 Labs: Abnormal Lab Results - Last 24 Hours (Table) 05/05/23 05/05/23 05/05/23 Range/Units 11:04 16:01 21:07 WBC (4.50-10.00) X 10*3/uL RBC (4.40-5.60) X 10*6/uL Hgb (13.0-17.0) d/dL Hct (39.6-50.0) % MCHC (32.0-37.0) d/dL RDW (11.5-14.5) % MPV (9.5-12.2) FL Lymphocytes # (0.90-5.00) X 10*3/uL Potassium 5.2 H (3.5-5.1) mmol/L Chloride (98-107) mmol/L BUN (9-20) mg/dL Glucose (74-99) mg/dL POC Glucose (mg/dL) 131 H 156 H (70-110) mg/dL Calcium (8.4-10.2) mg/dL Total Protein (6.3-8.2) g/dL Albumin (3.5-5.0) g/dL 05/06/23 05/06/23 05/06/23 Range/Units 02:35 06:27 06:27 WBC 3.72 L (4.50-10.00) X 10*3/uL RBC 3.48 L (4.40-5.60) X 10*6/uL Hgb 9.8 L (13.0-17.0) d/dL Hct 31.6 L (39.6-50.0) % MCHC 31.0 L (32.0-37.0) d/dL RDW 16.1 H (11.5-14.5) % MPV 9.3 L (9.5-12.2) FL Lymphocytes # 0.87 L (0.90-5.00) X 10*3/uL Potassium (3.5-5.1) mmol/L Chloride 112 H (98-107) mmol/L BUN 37 H (9-20) mg/dL Glucose 72 L (74-99) mg/dL POC Glucose (mg/dL) 117 H (70-110) mg/dL Calcium 7.3 L (8.4-10.2) mg/dL Total Protein 5.2 L (6.3-8.2) g/dL Albumin 2.5 L (3.5-5.0) g/dL 05/06/23 Range/Units 07:39 WBC (4.50-10.00) X 10*3/uL RBC (4.40-5.60) X 10*6/uL Hgb (13.0-17.0) d/dL Hct (39.6-50.0) % MCHC (32.0-37.0) d/dL RDW (11.5-14.5) % MPV (9.5-12.2) FL Lymphocytes # (0.90-5.00) X 10*3/uL Potassium (3.5-5.1) mmol/L Chloride (98-107) mmol/L BUN (9-20) mg/dL Glucose (74-99) mg/dL POC Glucose (mg/dL) 66 L (70-110) mg/dL Calcium (8.4-10.2) mg/dL Total Protein (6.3-8.2) g/dL Albumin (3.5-5.0) g/dL Microbiology - Last 24 Hours (Table) 05/04/23 05:04 Blood Culture - Preliminary Blood 05/04/23 05:04 Blood Culture - Preliminary Blood Assessment and Plan (1) Bilateral cellulitis of lower leg Current Visit: Yes Status: Acute Code(s): L03.116 - CELLULITIS OF LEFT LOWER LIMB; L03.115 - CELLULITIS OF RIGHT LOWER LIMB SNOMED Code(s): 091227946 Plan: 1patient present to hospital with sepsis in this patient with a fever tachycardia elevated white count source likely right lower extremity cellulitis in this patient who did have a history of chronic venous stasis ulcer and history of recurrent cellulitis and patient has previously grown MRSA and Klebsiella from these wounds in the past 2-local wound care with Aquacel silver dressing followed by Andrea wrap to keep the swelling down, changed every 48 hours 3-patient to continue patient on vancomycin and cefepime while waiting for the culture to finalize Dictation was produced using [employer] dictation software. please excuse any grammatical, word or spelling errors. Time with Patient: Less than 30
[2023-05-06 12:23] LABS: Glucose,Whole Blood 76 mg/dL (70-110)
--- NOTE | 2023-05-06 13:10 | P.PN ---
Subjective Progress Note Date: 05/06/23 This is a 68-year-old white male with history of multiple medical problems including type 2 diabetes, hypertension, obstructive sleep apnea syndrome, on CPAP, history of chronic atrial fibrillation, and history of chronic right lower extremity venous stasis ulcer and recurrent episodes of cellulitis. Patient was sent from [facility] to the hospital mostly with 1 day history of intermittent fevers. Patient had no other symptoms, no headache, no symptoms of URI, no cough no shortness of breath, no wheezing, no nausea or vomiting, no abdominal pain, no diarrhea. He had a chronic nonhealing wound on the right lower extremity and this has been present for quite some time, denies any purulent or foul-smelling drainage from that area specifically. In the ER, the patient was noted to have a temp of 103, he was also tachycardic, and hypotensive with evidence of leukocytosis and his lactic acid was 2.6. Patient tested negative for COVID-19 infections tested negative for RSV and for influenza. Chest x-ray showed no evidence of any acute changes. Patient was empirically placed on vancomycin and cefepime, he was given fluid boluses and he also required placement temporarily on norepinephrine. However this morning his norepinephrine was discontinued and the patient seems to continue to have relatively normal blood pressure despite of discontinuation of norepinephrine. The meantime the patient was placed empirically on broad-spectrum antibiotics initially on cefepime and vancomycin. Considering the patient required pressors and required ICU admission, this consult was initiated. The patient is seen today 05/06/2023 in follow-up on the regular medical floor. He is currently sitting up in bed. Awake and alert in no acute distress. He is maintaining good O2 saturations in the 90s on room air. Cultures thus far are negative. He is continued on vancomycin and cefepime. White count 3.7. Hemoglobin 9.8. Platelets 193. Sodium 139. Potassium 4.5. Bicarb 22. BUN 37. Creatinine 1.18. Normal saline at 130 ML's per hour. Objective - Vital Signs Vital signs: Vital Signs Temp 98.5 F 05/06/23 07:31 Pulse 80 05/06/23 11:35 Resp 21 05/06/23 07:31 BP 138/73 05/06/23 07:31 Pulse Ox 95 05/06/23 07:31 FiO2 Intake & Output 05/05/23 05/06/23 05/06/23 18:59 06:59 18:59 Intake Total 2820.529 Output Total 1040 1200 Balance 1780.529 -1200 Intake: IV 2060 Sodium Chloride 0.9% 1, 1560 000 ml @ 130 mls/hr IV . Q7H42M [facility] Rx#:[id number] Vancomycin 2,000 mg In 500 Sodium Chloride 0.9% 500 ml 500 ml @ 167 mls/hr IVPB ONCE [facility] Rx#: [id number] Intake, IV Titration 160.529 Amount Cefepime 2 gm In Sodium 100 Chloride 0.9% 100 ml @ 25 mls/hr IVPB Q8H [facility] Rx#: [id number] Norepinephrine 4 mg In 60.529 Sodium Chloride 0.9% 250 ml @ 0.03 MCG/KG/MIN 15. 554 mls/hr IV .[id number] [facility] Rx#:[id number] Oral 600 Output: Urine 1040 1200 Other: Voiding Method Indwelling Catheter Indwelling Catheter Indwelling Catheter - Exam GENERAL EXAM: Alert, pleasant 68-year-old male, on room air, comfortable in no apparent distress. HEAD: Normocephalic. EYES: Normal reaction of pupils, equal size. NOSE: Clear with pink turbinates. THROAT: No erythema or exudates. NECK: No masses, no JVD. CHEST: No chest wall deformity. LUNGS: Equal air entry with no crackles, wheeze, rhonchi or dullness. CVS: S1 and S2 normal with no audible murmur, regular rhythm. ABDOMEN: No hepatosplenomegaly, normal bowel sounds, no guarding or rigidity. SPINE: No scoliosis or deformity SKIN: No rashes, chronic superficial inflammation cellulitis lower extremities CENTRAL NERVOUS SYSTEM: No focal deficits, tone is normal in all 4 extremities. EXTREMITIES: Changes of chronic venous stasis and cellulitis of the bilateral lower extremities. No clubbing, no cyanosis. Peripheral pulses are intact. - Labs CBC & Chem 7: 05/06/23 06:27 05/06/23 06:27 Labs: Abnormal Lab Results - Last 24 Hours (Table) 05/05/23 05/05/23 05/06/23 Range/Units 16:01 21:07 02:35 WBC (4.50-10.00) X 10*3/uL RBC (4.40-5.60) X 10*6/uL Hgb (13.0-17.0) d/dL Hct (39.6-50.0) % MCHC (32.0-37.0) d/dL RDW (11.5-14.5) % MPV (9.5-12.2) FL Lymphocytes # (0.90-5.00) X 10*3/uL Chloride (98-107) mmol/L BUN (9-20) mg/dL Glucose (74-99) mg/dL POC Glucose (mg/dL) 131 H 156 H 117 H (70-110) mg/dL Calcium (8.4-10.2) mg/dL Total Protein (6.3-8.2) g/dL Albumin (3.5-5.0) g/dL 05/06/23 05/06/23 05/06/23 Range/Units 06:27 06:27 07:39 WBC 3.72 L (4.50-10.00) X 10*3/uL RBC 3.48 L (4.40-5.60) X 10*6/uL Hgb 9.8 L (13.0-17.0) d/dL Hct 31.6 L (39.6-50.0) % MCHC 31.0 L (32.0-37.0) d/dL RDW 16.1 H (11.5-14.5) % MPV 9.3 L (9.5-12.2) FL Lymphocytes # 0.87 L (0.90-5.00) X 10*3/uL Chloride 112 H (98-107) mmol/L BUN 37 H (9-20) mg/dL Glucose 72 L (74-99) mg/dL POC Glucose (mg/dL) 66 L (70-110) mg/dL Calcium 7.3 L (8.4-10.2) mg/dL Total Protein 5.2 L (6.3-8.2) g/dL Albumin 2.5 L (3.5-5.0) g/dL Microbiology - Last 24 Hours (Table) 05/04/23 05:04 Blood Culture - Preliminary Blood 05/04/23 05:04 Blood Culture - Preliminary Blood Assessment and Plan Assessment: Acute sepsis and septic shock, most likely source is right lower extremity cellulitis. Acute kidney injury secondary to above improved Chronic lower extremity cellulitis Hyperkalemia secondary to hemolysis and acute kidney injury, recovered Insulin-dependent type 2 diabetes possible diabetic nephropathy Dyslipidemia Paroxysmal atrial fibrillation, anticoagulated with Eliquis History of depression Plan: The patient was seen and evaluated Labs and medications reviewed Currently on vancomycin and cefepime Check a pro-calcitonin Decrease IV fluids We will continue to follow I have personally seen and examined the patient, performed the documentation and the assessment and plan as written. Number of minutes spent on the visit: 10.
--- NOTE | 2023-05-06 16:06 | P.PN ---
Subjective Progress Note Date: 05/06/23 Hospital Course: 68-year-old male with history of chronic recurrent lower extremity cellulitis, paroxysmal atrial fibrillation on Eliquis, insulin-dependent type 2 diabetes, severe aortic stenosis, hypertension, dyslipidemia, morbid obesity, OZZY, depression presenting with fever. In the ED, temperature was 103.1, respiratory rate 26, blood pressure 98/74, pulse 98, saturating at 91% on room air. WBC 14.6, hemoglobin 10, platelets 459, potassium 5.6 with slight hemolysis, creatinine 1.15, glucose 113, lactate 2.6, magnesium 1.5, troponin negative. Respiratory viral panel was negative. Chest x-ray independently interpreted did not show any opacities, nondistended stomach. EKG shows normal sinus rhythm. Patient was given vancomycin and ceftriaxone in the ED. Was also given 2 L of normal saline. Patient worsened in the ED. Was hypotensive, requiring norepinephrine. Patient transferred to the medical ICU. Vascular surgery, ID, and ICU consulted. Ceftriaxone broadening to cefepime. He is now out of the ICU. Subjective: Patient seen and examined at bedside. No acute events overnight. Complaining of some tiredness. Pertinent positives and negatives as discussed above, a complete review of systems was performed and all other systems are negative. Vitals Signs Reviewed. General: nontoxic, no distress, appears at stated age Derm: warm, dry, bilateral lower extremity dressing clean, dry, intact Head: atraumatic, normocephalic, symmetric Eyes: EOMI, no lid lag, anicteric sclera Mouth: no lip lesion, mucus membranes moist Cardiovascular: S1S2 reg, no murmur Lungs: CTA bilateral, no rhonchi, no rales , no accessory muscle use Abdominal: soft, nontender to palpation, no guarding, no appreciable organomegaly Ext: no gross muscle atrophy, lower extremity nonpitting edema, no contractures Neuro: CN II-XI grossly intact, no focal neuro deficits Psych: Alert, oriented, appropriate affect Data Reviewed Today: Pertinent Labs: WBC 3.72, hemoglobin 9.8, platelet 193, potassium 4.5, creatinine 1.18, blood sugars range between 66-117 Imaging: No new imaging Assessment and Plan: Septic shock, resolved Lower extremity cellulitis Lactic acidosis, resolved -ID note reviewed, continue current IV antibiotics -On vancomycin and IV cefepime, monitor for renal toxicity -Blood cultures negative growth to date Bicytopenia -No active bleeding -Possibly diabetic related, continue to monitor Hypomagnesemia, resolved Insulin-dependent type 2 diabetes -Continue home Lantus, sliding scale insulin Chronic: Paroxysmal atrial fibrillation Dyslipidemia Depression BPH DVT ppx: Eliquis Code status: Full code Anticipated discharge place: Pending clinical course Anticipated discharge time: Pending clinical course Objective - Vital Signs Vital signs: Vital Signs Temp 98.5 F 05/06/23 12:13 Pulse 76 05/06/23 12:13 Resp 19 05/06/23 12:13 BP 135/71 05/06/23 12:13 Pulse Ox 95 05/06/23 12:13 FiO2 Intake & Output 05/05/23 05/06/23 05/06/23 18:59 06:59 18:59 Intake Total 2820.529 Output Total 1040 1200 250 Balance 1780.529 -1200 -250 Intake: IV 2060 Sodium Chloride 0.9% 1, 1560 000 ml @ 20 mls/hr IV . Q24H [facility] Rx#:[id number] Vancomycin 2,000 mg In 500 Sodium Chloride 0.9% 500 ml 500 ml @ 167 mls/hr IVPB ONCE [facility] Rx#: [id number] Intake, IV Titration 160.529 Amount Cefepime 2 gm In Sodium 100 Chloride 0.9% 100 ml @ 25 mls/hr IVPB Q8H [facility] Rx#: [id number] Norepinephrine 4 mg In 60.529 Sodium Chloride 0.9% 250 ml @ 0.03 MCG/KG/MIN 15. 554 mls/hr IV .[id number] [facility] Rx#:[id number] Oral 600 Output: Urine 1040 1200 250 Other: Voiding Method Indwelling Catheter Indwelling Catheter Indwelling Catheter # Voids 1 # Bowel Movements 1 - Labs CBC & Chem 7: 05/06/23 06:27 05/06/23 06:27 Labs: Abnormal Lab Results - Last 24 Hours (Table) 05/05/23 05/06/23 05/06/23 Range/Units 21:07 02:35 06:27 WBC (4.50-10.00) X 10*3/uL RBC (4.40-5.60) X 10*6/uL Hgb (13.0-17.0) d/dL Hct (39.6-50.0) % MCHC (32.0-37.0) d/dL RDW (11.5-14.5) % MPV (9.5-12.2) FL Lymphocytes # (0.90-5.00) X 10*3/uL Chloride 112 H (98-107) mmol/L BUN 37 H (9-20) mg/dL Glucose 72 L (74-99) mg/dL POC Glucose (mg/dL) 156 H 117 H (70-110) mg/dL Calcium 7.3 L (8.4-10.2) mg/dL Total Protein 5.2 L (6.3-8.2) g/dL Albumin 2.5 L (3.5-5.0) g/dL 05/06/23 05/06/23 Range/Units 06:27 07:39 WBC 3.72 L (4.50-10.00) X 10*3/uL RBC 3.48 L (4.40-5.60) X 10*6/uL Hgb 9.8 L (13.0-17.0) d/dL Hct 31.6 L (39.6-50.0) % MCHC 31.0 L (32.0-37.0) d/dL RDW 16.1 H (11.5-14.5) % MPV 9.3 L (9.5-12.2) FL Lymphocytes # 0.87 L (0.90-5.00) X 10*3/uL Chloride (98-107) mmol/L BUN (9-20) mg/dL Glucose (74-99) mg/dL POC Glucose (mg/dL) 66 L (70-110) mg/dL Calcium (8.4-10.2) mg/dL Total Protein (6.3-8.2) g/dL Albumin (3.5-5.0) g/dL Microbiology - Last 24 Hours (Table) 05/04/23 05:04 Blood Culture - Preliminary Blood 05/04/23 05:04 Blood Culture - Preliminary Blood
[2023-05-06 17:02] LABS: Glucose,Whole Blood 100 mg/dL (70-110)
[2023-05-06] MEDS: ATORVASTATIN 10 MG TAB PO SCH (19:57)
[2023-05-06] MEDS ORDERED: INSULIN DETEMIR (LEVEMIR) 100 UNIT/ML SYR SQ SCH (21:00)
[2023-05-06 21:03] LABS: Glucose,Whole Blood 125 mg/dL (70-110)
[2023-05-07] MEDS: CEFEPIME 2 GM in SODIUM CHLORIDE 0.9% 100 ML IVPB SCH ×3 (00:32→15:58)
[2023-05-07] MEDS ORDERED: ALPRAZolam 0.25 MG TAB PO STA (00:33)
[2023-05-07 07:04] LABS: HCT 31.5 % (39.0-53.0); HGB 10.1 gm/dL (13.0-17.5); Hypochromasia Moderate; MCH 29.2 pg (25.0-35.0); MCHC 32.1 g/dL (31.0-37.0); Mean Platelet Volume 7.8; Platelet Count 149 k/uL (150-450); RBC 3.46 m/uL (4.30-5.90); RDW 15.9 % (11.5-15.5); WBC 4.2 k/uL (3.8-10.6)
[2023-05-07 07:27] LABS: Glucose,Whole Blood 106 mg/dL (70-110)
[2023-05-07 07:28] LABS: African American GFR (CKD) >90 (>60 ml/min/1.73 sqM); Anion Gap 9 mmol/L; Blood Urea Nitrogen 26 mg/dL (9-20); Calcium 7.8 mg/dL (8.4-10.2); Carbon Dioxide 20 mmol/L (22-30); Chloride 110 mmol/L (98-107); Glucose 94 mg/dL (74-99); Magnesium 1.9 mg/dL (1.6-2.3); Non-African American GFR(CKD) 88 (>60 ml/min/1.73 sqM); Potassium 4.5 mmol/L (3.5-5.1); Sodium 139 mmol/L (137-145)
[2023-05-07] MEDS: NOREPINEPHRINE 4 MG in SODIUM CHLORIDE 0.9% 250 ML IV SCH (08:05)
[2023-05-07] MEDS: INSULIN ASPART (NovoLOG) 100 UNIT/ML VIAL SQ SCH ×2 (08:11→12:55)
[2023-05-07] MEDS: VANCOMYCIN 2,000 MG in SODIUM CHLORIDE 0.9% 500 ML 500 ML IVPB SCH (08:13)
[2023-05-07] MEDS: SODIUM CHLORIDE 0.9% 1,000 ML IV SCH (08:14)
[2023-05-07] MEDS: PANTOPRAZOLE 40 MG/10 ML VIAL IV SCH (08:15)
[2023-05-07] MEDS: TAMSULOSIN 0.4 MG CAP.ER.24H PO SCH (08:15)
[2023-05-07] MEDS: FERROUS SULFATE 325 MG TAB PO SCH (08:15)
[2023-05-07] MEDS: APIXABAN 5 MG TAB PO SCH (08:15)
[2023-05-07] MEDS: FLUoxetine HCL 20 MG CAP PO SCH (08:15)
[2023-05-07] MEDS: CHOLECALCIFEROL 25 MCG (1000 IU) TABLET PO SCH (08:15)
[2023-05-07] MEDS: CYANOCOBALAMIN 500 MCG TAB PO SCH (08:15)
[2023-05-07 09:35] LABS: Eosinophils # (M) 0.08 k/uL (0-0.7); Monocytes # (M) 0.38 k/uL (0-1.0); Neutrophils # (M) 2.94 k/uL (1.3-7.7); Neutrophils % (M) 70 %; Nucleated Red Blood Cells 0 /100 WBC (0-0); Total Cells Counted 200
[2023-05-07] MEDS: IPRATROPIUM-ALBUTEROL 3 ML NEB INHALATION SCH ×2 (09:42→12:43)
[2023-05-07 11:34] LABS: Glucose,Whole Blood 104 mg/dL (70-110)
--- NOTE | 2023-05-07 12:09 | P.PN ---
Subjective Progress Note Date: 05/07/23 This is a 68-year-old white male with history of multiple medical problems including type 2 diabetes, hypertension, obstructive sleep apnea syndrome, on CPAP, history of chronic atrial fibrillation, and history of chronic right lower extremity venous stasis ulcer and recurrent episodes of cellulitis. Patient was sent from group home to the hospital mostly with 1 day history of intermittent fevers. Patient had no other symptoms, no headache, no symptoms of URI, no cough no shortness of breath, no wheezing, no nausea or vomiting, no abdominal pain, no diarrhea. He had a chronic nonhealing wound on the right lower extremity and this has been present for quite some time, denies any purulent or foul-smelling drainage from that area specifically. In the ER, the patient was noted to have a temp of 103, he was also tachycardic, and hypotensive with evidence of leukocytosis and his lactic acid was 2.6. Patient tested negative for COVID-19 infections tested negative for RSV and for influenza. Chest x-ray showed no evidence of any acute changes. Patient was empirically placed on vancomycin and cefepime, he was given fluid boluses and he also required placement temporarily on norepinephrine. However this morning his norepinephrine was discontinued and the patient seems to continue to have relatively normal blood pressure despite of discontinuation of norepinephrine. The meantime the patient was placed empirically on broad-spectrum antibiotics initially on cefepime and vancomycin. Considering the patient required pressors and required ICU admission, this consult was initiated. The patient is seen today 05/06/2023 in follow-up on the regular medical floor. He is currently sitting up in bed. Awake and alert in no acute distress. He is maintaining good O2 saturations in the 90s on room air. Cultures thus far are negative. He is continued on vancomycin and cefepime. White count 3.7. Hemoglobin 9.8. Platelets 193. Sodium 139. Potassium 4.5. Bicarb 22. BUN 37. Creatinine 1.18. Normal saline at 130 ML's per hour. The patient is seen today 05/07/2023 in follow-up on the regular medical floor. He is resting comfortably in bed. Awake and alert in no acute distress. Maintaining good O2 saturations in the 90s on room air. Currently afebrile. Hemodynamically stable. Blood cultures reveal no growth thus far. White count 4.2. Hemoglobin 10.1. Platelets 149. Sodium 139. Potassium 4.5. Bicarb 20. BUN 26. Creatinine 0.86. Glucose 94. Pro-calcitonin 8.57. Continued on vancomycin and cefepime. Remains on bronchodilators. Anticoagulated with Eliqu is. Objective - Vital Signs Vital signs: Vital Signs Temp 97.7 F 05/07/23 07:35 Pulse 78 05/07/23 09:55 Resp 19 05/07/23 08:40 BP 153/91 05/07/23 07:35 Pulse Ox 94 L 05/07/23 07:35 FiO2 Intake & Output 05/06/23 05/07/23 05/07/23 18:59 06:59 18:59 Output Total 250 1600 Balance -250 -1600 Output: Urine 250 1600 Other: Voiding Method Indwelling Catheter Indwelling Catheter Indwelling Catheter # Voids 1 # Bowel Movements 1 - Exam GENERAL EXAM: Alert, 68-year-old male, resting in bed, on room air, comfortable in no apparent distress. HEAD: Normocephalic. EYES: Normal reaction of pupils, equal size. NOSE: Clear with pink turbinates. THROAT: No erythema or exudates. NECK: No masses, no JVD. CHEST: No chest wall deformity. LUNGS: Equal air entry with no crackles, wheeze, rhonchi or dullness. CVS: S1 and S2 normal with no audible murmur, regular rhythm. ABDOMEN: No hepatosplenomegaly, normal bowel sounds, no guarding or rigidity. SPINE: No scoliosis or deformity SKIN: No rashes, chronic superficial inflammation cellulitis lower extremities CENTRAL NERVOUS SYSTEM: No focal deficits, tone is normal in all 4 extremities. EXTREMITIES: Changes of chronic venous stasis and cellulitis of the bilateral lower extremities. No clubbing, no cyanosis. Peripheral pulses are intact. - Labs CBC & Chem 7: 05/07/23 06:17 05/07/23 06:17 Labs: Abnormal Lab Results - Last 24 Hours (Table) 05/06/23 05/06/23 05/07/23 Range/Units 06:22 20:39 06:17 RBC 3.46 L (4.30-5.90) m/uL Hgb 10.1 L (13.0-17.5) gm/dL Hct 31.5 L (39.0-53.0) % RDW 15.9 H (11.5-15.5) % Plt Count 149 L (150-450) k/uL Lymphocytes # (Manual) 0.80 L (1.0-4.8) k/uL Chloride (98-107) mmol/L Carbon Dioxide (22-30) mmol/L BUN (9-20) mg/dL POC Glucose (mg/dL) 125 H (70-110) mg/dL Calcium (8.4-10.2) mg/dL Procalcitonin 8.57 H (0.02-0.09) ng/mL 05/07/23 Range/Units 06:17 RBC (4.30-5.90) m/uL Hgb (13.0-17.5) gm/dL Hct (39.0-53.0) % RDW (11.5-15.5) % Plt Count (150-450) k/uL Lymphocytes # (Manual) (1.0-4.8) k/uL Chloride 110 H (98-107) mmol/L Carbon Dioxide 20 L (22-30) mmol/L BUN 26 H (9-20) mg/dL POC Glucose (mg/dL) (70-110) mg/dL Calcium 7.8 L (8.4-10.2) mg/dL Procalcitonin (0.02-0.09) ng/mL Microbiology - Last 24 Hours (Table) 05/04/23 05:04 Blood Culture - Preliminary Blood 05/04/23 05:04 Blood Culture - Preliminary Blood Assessment and Plan Assessment: Acute sepsis and septic shock, most likely source is right lower extremity cellulitis. Stable and off pressors. Remains on Vancomycin and cefepime Acute kidney injury secondary to above, improved Chronic lower extremity cellulitis Hyperkalemia secondary to hemolysis and acute kidney injury, recovered Insulin-dependent type 2 diabetes possible diabetic nephropathy Dyslipidemia Paroxysmal atrial fibrillation, anticoagulated with Eliquis History of depression Plan: The patient was seen and evaluated Labs and medications reviewed Currently on vancomycin and cefepime ID service is on the case We will continue to follow I have personally seen and examined the patient, performed the documentation and the assessment and plan as written. Number of minutes spent on the visit: 10.
[2023-05-07 12:12] VITALS: BP 144/81; RESP 20; TEMP 97.9
--- NOTE | 2023-05-07 12:26 | P.PN ---
Subjective Progress Note Date: 05/07/23 Principal diagnosis: Bilateral lower extremity cellulitis Patient is a 68-year-old male with a past medical history significant for atrial fibrillation diabetes mellitus hypertension hyperlipidemia sleep apnea patient did have a history of right lower extremity venous stasis ulcer and recurrent episodes of cellulitis patient has been sent to the ER from the long-term for evaluation of fever and concern for bilateral lower extremity cellulitis patient in the right leg. On today's evaluation that is 05/07/2023, the patient denies any fever or any chills, the patient is breathing comfortably on room air and no need for supplemental oxygen, the patient denies chest pain or cough, patient denies nausea/vomiting and no diarrhea has been reported, the patient pain to the lower extremity has decreased in intensity and no new symptoms. Patient white count 4.2, creatinine 0.6 blood culture negative Objective - Vital Signs Vital signs: Vital Signs Temp 97.9 F 05/07/23 12:07 Pulse 74 05/07/23 12:07 Resp 20 05/07/23 12:07 BP 144/81 05/07/23 12:07 Pulse Ox 96 05/07/23 12:07 FiO2 Intake & Output 05/06/23 05/07/23 05/07/23 18:59 06:59 18:59 Output Total 250 1600 Balance -250 -1600 Output: Urine 250 1600 Other: Voiding Method Indwelling Catheter Indwelling Catheter Indwelling Catheter # Voids 1 # Bowel Movements 1 - Exam GENERAL DESCRIPTION: An elderly male lying in bed in no distress RESPIRATORY SYSTEM: Unlabored breathing , decreased breath sounds at bases HEART: S1 S2 regular rate and rhythm , ABDOMEN: Soft , no tenderness EXTREMITIES: Bilateral extremity are currently wrapped in Andrea wrap dressing was just changed so it was not opened - Labs CBC & Chem 7: 05/07/23 06:17 05/07/23 06:17 Labs: Abnormal Lab Results - Last 24 Hours (Table) 05/06/23 05/06/23 05/07/23 Range/Units 06:22 20:39 06:17 RBC 3.46 L (4.30-5.90) m/uL Hgb 10.1 L (13.0-17.5) gm/dL Hct 31.5 L (39.0-53.0) % RDW 15.9 H (11.5-15.5) % Plt Count 149 L (150-450) k/uL Lymphocytes # (Manual) 0.80 L (1.0-4.8) k/uL Chloride (98-107) mmol/L Carbon Dioxide (22-30) mmol/L BUN (9-20) mg/dL POC Glucose (mg/dL) 125 H (70-110) mg/dL Calcium (8.4-10.2) mg/dL Procalcitonin 8.57 H (0.02-0.09) ng/mL 05/07/23 Range/Units 06:17 RBC (4.30-5.90) m/uL Hgb (13.0-17.5) gm/dL Hct (39.0-53.0) % RDW (11.5-15.5) % Plt Count (150-450) k/uL Lymphocytes # (Manual) (1.0-4.8) k/uL Chloride 110 H (98-107) mmol/L Carbon Dioxide 20 L (22-30) mmol/L BUN 26 H (9-20) mg/dL POC Glucose (mg/dL) (70-110) mg/dL Calcium 7.8 L (8.4-10.2) mg/dL Procalcitonin (0.02-0.09) ng/mL Microbiology - Last 24 Hours (Table) 05/04/23 05:04 Blood Culture - Preliminary Blood 05/04/23 05:04 Blood Culture - Preliminary Blood Assessment and Plan (1) Bilateral cellulitis of lower leg Current Visit: Yes Status: Acute Code(s): L03.116 - CELLULITIS OF LEFT LOWER LIMB; L03.115 - CELLULITIS OF RIGHT LOWER LIMB SNOMED Code(s): 859745391 Plan: 1patient present to hospital with sepsis in this patient with a fever tachycardia elevated white count source likely right lower extremity cellulitis in this patient who did have a history of chronic venous stasis ulcer and history of recurrent cellulitis and patient has previously grown MRSA and Klebsiella from these wounds in the past 2-local wound care with Aquacel silver dressing followed by Andrea wrap to keep the swelling down, changed every 48 hours 3-patient has shown clinical improvement culture has been negative, plan is 10 day course of vancomycin and cefepime on discharge for which PICC line should be placed Dictation was produced using dragon dictation software. please excuse any grammatical, word or spelling errors. Time with Patient: Less than 30
[2023-05-07 13:05] LABS: INR 1.1 (<1.2); Prothrombin Time 11.3 sec (9.0-12.0)
[2023-05-07 13:07] VITALS: PULSE 78
[2023-05-07] MEDS ORDERED: LIDOCAINE 1% INJ 10MG/ML (30 ML VIAL-PF) SQ ONE (13:58)
--- NOTE | 2023-05-07 14:08 | P.PN ---
Subjective Progress Note Date: 05/07/23 Hospital Course: 68-year-old male with history of chronic recurrent lower extremity cellulitis, paroxysmal atrial fibrillation on Eliquis, insulin-dependent type 2 diabetes, severe aortic stenosis, hypertension, dyslipidemia, morbid obesity, OZZY, depression presenting with fever. In the ED, temperature was 103.1, respiratory rate 26, blood pressure 98/74, pulse 98, saturating at 91% on room air. WBC 14.6, hemoglobin 10, platelets 459, potassium 5.6 with slight hemolysis, creatinine 1.15, glucose 113, lactate 2.6, magnesium 1.5, troponin negative. Respiratory viral panel was negative. Chest x-ray independently interpreted did not show any opacities, nondistended stomach. EKG shows normal sinus rhythm. Patient was given vancomycin and ceftriaxone in the ED. Was also given 2 L of normal saline. Patient worsened in the ED. Was hypotensive, requiring norepinephrine. Patient transferred to the medical ICU. Vascular surgery, ID, and ICU consulted. Ceftriaxone broadening to cefepime. He is now out of the ICU. He will be discharged to rehab facility on IV antibiotics for 10 days. Subjective: Patient seen and examined at bedside. No acute events overnight. Patient feels depressed Pertinent positives and negatives as discussed above, a complete review of syste ms was performed and all other systems are negative. Vitals Signs Reviewed. General: nontoxic, no distress, appears at stated age Derm: warm, dry, bilateral lower extremity dressing clean, dry, intact Head: atraumatic, normocephalic, symmetric Eyes: EOMI, no lid lag, anicteric sclera Mouth: no lip lesion, mucus membranes moist Cardiovascular: S1S2 reg, no murmur Lungs: CTA bilateral, no rhonchi, no rales , no accessory muscle use Abdominal: soft, nontender to palpation, no guarding, no appreciable organomegaly Ext: no gross muscle atrophy, lower extremity nonpitting edema, no contractures Neuro: CN II-XI grossly intact, no focal neuro deficits Psych: Alert, oriented, appropriate affect Data Reviewed Today: Pertinent Labs: WBC 4.2, hemoglobin 10.1, sodium 139, potassium 4.5, creatinine 0.86, blood glucose range between 94-125 Imaging: No new imaging Assessment and Plan: Septic shock, resolved Lower extremity cellulitis Lactic acidosis, resolved -ID note reviewed, continue current IV antibiotics, discharge on 10 days of IV abx -On vancomycin and IV cefepime, monitor for renal toxicity -Blood cultures negative growth to date -PICC line to be placed today Chronic normocytic anemia -No active bleeding Hypomagnesemia, resolved Insulin-dependent type 2 diabetes -Continue home Lantus, sliding scale insulin Depression -still having depressive symptoms despite being on prozac for 1 year -likely under treated -increased prozac to 40 mg -needs further outpatient follow up Chronic: Paroxysmal atrial fibrillation Dyslipidemia BPH DVT ppx: Eliquis Code status: Full code Anticipated discharge place: Rehab facility Anticipated discharge time: Pending authorization Objective - Vital Signs Vital signs: Vital Signs Temp 97.9 F 05/07/23 12:07 Pulse 78 05/07/23 12:53 Resp 20 05/07/23 12:07 BP 144/81 05/07/23 12:07 Pulse Ox 96 05/07/23 12:07 FiO2 Intake & Output 05/06/23 05/07/23 05/07/23 18:59 06:59 18:59 Output Total 250 1600 Balance -250 -1600 Output: Urine 250 1600 Other: Voiding Method Indwelling Catheter Indwelling Catheter Indwelling Catheter # Voids 1 # Bowel Movements 1 - Labs CBC & Chem 7: 05/07/23 06:17 05/07/23 06:17 Labs: Abnormal Lab Results - Last 24 Hours (Table) 05/06/23 05/06/23 05/07/23 Range/Units 06:22 20:39 06:17 RBC 3.46 L (4.30-5.90) m/uL Hgb 10.1 L (13.0-17.5) gm/dL Hct 31.5 L (39.0-53.0) % RDW 15.9 H (11.5-15.5) % Plt Count 149 L (150-450) k/uL Lymphocytes # (Manual) 0.80 L (1.0-4.8) k/uL Chloride (98-107) mmol/L Carbon Dioxide (22-30) mmol/L BUN (9-20) mg/dL POC Glucose (mg/dL) 125 H (70-110) mg/dL Calcium (8.4-10.2) mg/dL Procalcitonin 8.57 H (0.02-0.09) ng/mL 05/07/23 Range/Units 06:17 RBC (4.30-5.90) m/uL Hgb (13.0-17.5) gm/dL Hct (39.0-53.0) % RDW (11.5-15.5) % Plt Count (150-450) k/uL Lymphocytes # (Manual) (1.0-4.8) k/uL Chloride 110 H (98-107) mmol/L Carbon Dioxide 20 L (22-30) mmol/L BUN 26 H (9-20) mg/dL POC Glucose (mg/dL) (70-110) mg/dL Calcium 7.8 L (8.4-10.2) mg/dL Procalcitonin (0.02-0.09) ng/mL Microbiology - Last 24 Hours (Table) 05/04/23 05:04 Blood Culture - Preliminary Blood 05/04/23 05:04 Blood Culture - Preliminary Blood
--- NOTE | 2023-05-07 15:03 | P.DS ---
Providers Date of admission: 05/04/23 07:46 Expected date of discharge: 05/07/23 Attending physician: Vinod Lee MD Consults: 05/04/23 07:46 Consult Physician Routine Consulting Provider: Ander Davila Consult Reason/Comments: cellulitis Do you want consulting provider notified?: Yes 05/04/23 13:15 Consult Physician Urgent Consulting Provider: Teofilo Blandon Consult Reason/Comments: septic shock Do you want consulting provider notified?: Yes 05/04/23 18:50 Consult Physician Urgent Consulting Provider: Wyatt Flores Consult Reason/Comments: No R pedal pulse Do you want consulting provider notified?: Yes Primary care physician: Toya Jenkins DO Hospital Course: Discharge Diagnosis: Septic shock, resolved Lower extremity cellulitis Lactic acidosis Chronic normocytic anemia Hypomagnesemia Insulin-dependent type 2 diabetes Depression Paroxysmal atrial fibrillation Dyslipidemia BPH Hospital Course: 68-year-old male with history of chronic recurrent lower extremity cellulitis, paroxysmal atrial fibrillation on Eliquis, insulin-dependent type 2 diabetes, severe aortic stenosis, hypertension, dyslipidemia, morbid obesity, OZZY, de pression presenting with fever. In the ED, temperature was 103.1, respiratory rate 26, blood pressure 98/74, pulse 98, saturating at 91% on room air. WBC 14.6, hemoglobin 10, platelets 459, potassium 5.6 with slight hemolysis, creatinine 1.15, glucose 113, lactate 2.6, magnesium 1.5, troponin negative. Respiratory viral panel was negative. Chest x-ray independently interpreted did not show any opacities, nondistended stomach. EKG shows normal sinus rhythm. Patient was given vancomycin and ceftriaxone in the ED. Was also given 2 L of normal saline. Patient worsened in the ED. Was hypotensive, requiring norepinephrine. Patient transferred to the medical ICU. Vascular surgery, ID, and ICU consulted. Patient does have peripheral arterial disease, outpatient follow-up with vascular surgery. Ceftriaxone broadened to cefepime. He will be discharged to rehab facility on IV antibiotics for 10 days. PICC line was placed. Patient seen and examined at bedside. Vital signs reviewed and stable. General: nontoxic, no distress, appears at stated age Derm: warm, dry, bilateral lower extremity dressing clean, dry, intact Head: atraumatic, normocephalic, symmetric Eyes: EOMI, no lid lag, anicteric sclera Mouth: no lip lesion, mucus membranes moist Cardiovascular: S1S2 reg, no murmur Lungs: CTA bilateral, no rhonchi, no rales , no accessory muscle use Abdominal: soft, nontender to palpation, no guarding, no appreciable organomegaly Ext: no gross muscle atrophy, lower extremity nonpitting edema, no contractures Neuro: CN II-XI grossly intact, no focal neuro deficits Psych: Alert, oriented, appropriate affect A total of 33 minutes of time were spent preparing this complex discharge summary. Patient was discharged on 05/07/23 at 1449. Patient Condition at Discharge: Stable Plan - Discharge Summary Discharge Rx Participant: Yes New Discharge Prescriptions: New Cefepime [Maxipime] 2 gm IVPB Q8HR #1 each Vancomycin 2,000 mg IVPB Q24H #1 each FLUoxetine HCL [PROzac] 40 mg PO DAILY cap Continue Apixaban [Eliquis] 5 mg PO BID Vitamin B-12 100mcg 1 tab PO DAILY Tamsulosin HCl [Flomax] 0.4 mg PO DAILY Acetaminophen Tab [Tylenol] 500 mg PO Q6HR PRN PRN Reason: Pain Ipratropium-Albuterol Nebulize [Duoneb 0.5 mg-3 mg/3 ml Soln] 3 ml INHALATION RT-TID Exenatide Microspheres [Bydureon Bcise Auto-Injector] 2 mg SQ NEVAREZ Insulin Lispro [humaLOG Kwikpen] See Protocol SQ TID-W/MEALS Insulin Glargine,Hum.rec.anlog [Lantus Solostar Pen] 30 units SQ HS Ferrous Sulfate [Iron (65 MG Elemental)] 325 mg PO DAILY Cholecalciferol [Vitamin D3 (25 Mcg = 1000 Iu)] 25 mcg PO DAILY Testosterone [Androgel 1.62% Gel Packet] 2 packet TOPICAL DAILY carvediloL [Coreg] 12.5 mg PO BID #60 tab Potassium Chloride ER [K-Dur 20] 20 meq PO DAILY Furosemide [Lasix] 40 mg PO DAILY Atorvastatin [Lipitor] 10 mg PO HS diphenhydrAMINE [Benadryl] 50 mg PO QID PRN PRN Reason: Itching Hydrocortisone Cream [Hydrocortisone 1% Cream] 1 applic TOPICAL BID Discontinued FLUoxetine HCL [PROzac] 20 mg PO DAILY traMADol HCL 50 mg PO Q6H PRN #12 tab PRN Reason: Pain diphenhydrAMINE [Benadryl] 50 mg PO TID Sulfamethox-Tmp 800-160Mg [Bactrim DS 800-160 mg] 1 tab PO Q12HR predniSONE [Deltasone] 20 mg PO DAILY Discharge Medication List Apixaban [Eliquis] 5 mg PO BID 04/11/17 [History] Cholecalciferol [Vitamin D3 (25 Mcg = 1000 Iu)] 25 mcg PO DAILY 12/12/22 [History] Ferrous Sulfate [Iron (65 MG Elemental)] 325 mg PO DAILY 12/12/22 [History] Insulin Glargine,Hum.rec.anlog [Lantus Solostar Pen] 30 units SQ HS 12/12/22 [History] Insulin Lispro [humaLOG Kwikpen] See Protocol SQ TID-W/MEALS 12/12/22 [History] Testosterone [Androgel 1.62% Gel Packet] 2 packet TOPICAL DAILY 12/12/22 [History] Acetaminophen Tab [Tylenol] 500 mg PO Q6HR PRN 01/02/23 [History] Tamsulosin HCl [Flomax] 0.4 mg PO DAILY 01/02/23 [History] Vitamin B-12 100mcg 1 tab PO DAILY 01/02/23 [History] Ipratropium-Albuterol Nebulize [Duoneb 0.5 mg-3 mg/3 ml Soln] 3 ml INHALATION RT-TID 02/23/23 [History] carvediloL [Coreg] 12.5 mg PO BID #60 tab 03/03/23 [Rx] Exenatide Microspheres [Bydureon Bcise Auto-Injector] 2 mg SQ NEVAREZ 04/18/23 [History] Furosemide [Lasix] 40 mg PO DAILY 04/18/23 [History] Potassium Chloride ER [K-Dur 20] 20 meq PO DAILY 04/18/23 [History] Atorvastatin [Lipitor] 10 mg PO HS 05/04/23 [History] Hydrocortisone Cream [Hydrocortisone 1% Cream] 1 applic TOPICAL BID 05/04/23 [History] diphenhydrAMINE [Benadryl] 50 mg PO QID PRN 05/04/23 [History] Cefepime [Maxipime] 2 gm IVPB Q8HR #1 each 05/07/23 [Rx] FLUoxetine HCL [PROzac] 40 mg PO DAILY cap 05/07/23 [Rx] Vancomycin 2,000 mg IVPB Q24H #1 each 05/07/23 [Rx] Follow up Appointment(s)/Referral(s): Toya Jenkins DO [Primary Care Provider] - 1-2 days Wyatt Flores DO [Doctor of Osteopathic Medicine] - [facility] [NON-STAFF] - 05/05/23 1:00 pm Patient Instructions/Handouts: Cellulitis (GEN) Activity/Diet/Wound Care/Special Instructions: Please see your PCP, vascular surgery, and wound care. Discharge Disposition: TRANSFER TO SNF/ECF
--- NOTE | 2023-05-07 15:14 | IR ---
PICC LINE PLACEMENT: HISTORY: Infection requiring long-term antibiotic therapy PROCEDURE: Ultrasound and fluoroscopic guidance of PICC line placement. COMPLICATIONS: None ANESTHESIA: 1. 1% Lidocaine locally. FINDINGS/TECHNIQUE: The procedure was explained to the patient. The risks, complications, benefits and alternatives were discussed and any questions were answered. Informed consent was obtained. The patient was placed supine on the fluoroscopic table and prepped and draped in the usual sterile fash ion. Utilizing a 21 gauge needle and sonographic and fluoroscopic guidance, access in the right bas ilic vein was achieved and there is placement of a 0.018 guidewire. The vein is patent. A 4-F sheat h was placed over the guidewire. The guidewire and dilator were removed and a 4-F. PICC line was jesse preston through the sheath with the tip at the level of the SVC. The sheath was removed, the catheter wa s flushed and sutured into position. The patient was stable throughout the procedure and remained st able upon discharge from the Department of Radiology. The vein puncture was patent under ultrasound. A chun scale image was obtained to document patency of the vein punctured. All elements of the maximal barrier technique were utilized. FLUOROSCOPY TIME: DAP 0.677Gy cm2 IMPRESSION: Successful PICC line placement under ultrasound and fluoroscopic guidance.
[2023-05-07 17:37] LABS: Glucose,Whole Blood 101 mg/dL (70-110)
[2023-05-08] MEDS ORDERED: VANCOMYCIN TROUGH DUE 1 EACH MISC MISCELLANE ONE (06:00)
[2023-05-08] MEDS ORDERED: FLUoxetine HCL 20 MG CAP PO SCH (09:00)
== END 2023-05-07 18:22 | DRG 871 ==
LOC: EC 04:18 → 3SCARD 07:46 → 2SICU 13:56 → 5NMEDONC 05-05 20:09
PROVIDERS: ADMIT Internal Medicine; ATTEND Internal Medicine
PROC: 3E043XZ Introduction of Vasopressor into Central Vein, Percutaneous Approach (ICD-10-PCS; 2023-05-07)
PROC: 02HV33Z Insertion of Infusion Device into Superior Vena Cava, Percutaneous Approach (ICD-10-PCS; principal; 2023-05-07 15:45)
DX: A41.9 Sepsis, unspecified organism (principal); R65.21 Severe sepsis with septic shock; E87.20 Acidosis, unspecified; I87.333 Chronic venous hypertension (idiopathic) with ulcer and inflammation of bilateral lower extremity; L03.115 Cellulitis of right lower limb; L03.116 Cellulitis of left lower limb; L97.812 Non-pressure chronic ulcer of other part of right lower leg with fat layer exposed; N17.9 Acute kidney failure, unspecified; L97.922 Non-pressure chronic ulcer of unspecified part of left lower leg with fat layer exposed; E11.51 Type 2 diabetes mellitus with diabetic peripheral angiopathy without gangrene; E11.628 Type 2 diabetes mellitus with other skin complications; E11.622 Type 2 diabetes mellitus with other skin ulcer; I70.249 Atherosclerosis of native arteries of left leg with ulceration of unspecified site; I70.239 Atherosclerosis of native arteries of right leg with ulceration of unspecified site; F32.A Depression, unspecified; I10 Essential (primary) hypertension; I35.0 Nonrheumatic aortic (valve) stenosis; D64.9 Anemia, unspecified; E78.5 Hyperlipidemia, unspecified; E83.42 Hypomagnesemia; E87.5 Hyperkalemia; I48.0 Paroxysmal atrial fibrillation; N40.0 Benign prostatic hyperplasia without lower urinary tract symptoms; R79.1 Abnormal coagulation profile; G47.33 Obstructive sleep apnea (adult) (pediatric); Z20.822 Contact with and (suspected) exposure to COVID-19; Z79.01 Long term (current) use of anticoagulants; Z79.4 Long term (current) use of insulin; Z79.899 Other long term (current) drug therapy; Z83.3 Family history of diabetes mellitus; Z85.828 Personal history of other malignant neoplasm of skin; Z86.14 Personal history of Methicillin resistant Staphylococcus aureus infection; Z88.5 Allergy status to narcotic agent; Z88.0 Allergy status to penicillin; Z88.8 Allergy status to other drugs, medicaments and biological substances; Z79.890 Hormone replacement therapy
CPT/HCPCS: 36415; 36573; 71045; 80048; 80053; 81003; 83605; 83735; 84100; 84132; 84145; 84484; 85025; 85610; 85730; 87040; 87636; 93005; 93922; 93970; 94640; 96361; 96365; 96366; 96367; 96368; 96375; 99285

== ENCOUNTER 2023-07-24 11:47 | Inpatient (IN) | payer MEDICARE ==
--- NOTE | 2023-07-24 14:45 | ED ---
Extremity Problem HPI - General Source: patient Mode of arrival: EMS Limitations: no limitations <Ran Alarcon - Last Filed: 07/24/23 14:47> <Marlene Yu - Last Filed: 07/25/23 23:06> - General Chief complaint: Extremity Problem,Nontraumatic Stated complaint: R Swollen Calf Time Seen by Provider: 07/24/23 12:47 - History of Present Illness Initial comments: 68-year-old male presenting to the ED with a chief complaint right calf swelling. Patient states 3 weeks ago had a vein stripping procedure performed by Dr. Gamez. since then, he notes that he has developed swelling, redness, and pain of the right leg. States his home visiting nurse saw this with visor to present to the ED further evaluation. Denies fever or chills. (Ran Alarcon) 68-year-old male presenting with chief complaint of right lower leg swelling. Patient had vein stripping performed on 07/[address] Gamez states that shortly after he developed swelling and redness and discomfort. He was advised report to the ER by his home care nurse. No fever, chills, nausea, vomiting, chest pain, difficulty breathing. (Marlene Yu) - Related Data Home Medications Medication Instructions Recorded Confirmed Apixaban [Eliquis] 5 mg PO BID 04/11/17 07/24/23 Insulin Glargine,Hum.rec.anlog 30 units SQ HS 12/12/22 07/24/23 [Lantus Solostar Pen] Insulin Lispro [humaLOG Kwikpen] See Protocol SQ TID-W/MEALS 12/12/22 07/24/23 Testosterone [Androgel 1.62% Gel 2 packet TOPICAL DAILY 12/12/22 07/24/23 Packet] Tamsulosin HCl [Flomax] 0.4 mg PO DAILY 01/02/23 07/24/23 Furosemide [Lasix] 40 mg PO DAILY 04/18/23 07/24/23 Potassium Chloride ER [K-Dur 20] 20 meq PO DAILY 04/18/23 07/24/23 Atorvastatin [Lipitor] 10 mg PO HS 05/04/23 07/24/23 Semaglutide [Ozempic] 0.25 mg SQ NEVAREZ 07/24/23 07/24/23 carvediloL [Coreg] 12.5 mg PO Q12H 07/24/23 07/24/23 Previous Rx's Medication Instructions Recorded FLUoxetine HCL [PROzac] 40 mg PO DAILY cap 05/07/23 Allergies Allergy/AdvReac Type Severity Reaction Status Date / Time famotidine [From Pepcid] Allergy Unknown Verified 07/24/23 22:31 Penicillins Allergy Rash/Hives Verified 07/24/23 22:31 hydrocodone AdvReac Hallucinati Verified 07/24/23 22:31 ons lisinopril [From Prinivil] AdvReac Cough Verified 07/24/23 22:31 Review of Systems ROS Other: All systems not noted in ROS Statement are negative. <Ran Alarcon - Last Filed: 07/24/23 14:47> ROS Other: All systems not noted in ROS Statement are negative. <Marlene Yu - Last Filed: 07/25/23 23:06> ROS Statement: Those systems with pertinent positive or pertinent negative responses have been documented in the HPI. Past Medical History Past Medical History: Atrial Fibrillation, Cancer, Diabetes Mellitus, Hyperlipidemia, Hypertension, Sleep Apnea/CPAP/BIPAP Additional Past Medical History / Comment(s): Basal cell carcinoma, Heart murmur History of Any Multi-Drug Resistant Organisms: MRSA Date of last positivie culture/infection: 02/24/23 MDRO Source:: Right Leg Past Surgical History: No Surgical Hx Reported Additional Past Surgical History / Comment(s): Cataract surgery right eye, RLE vein stripping Past Anesthesia/Blood Transfusion Reactions: No Reported Reaction Past Psychological History: Depression Smoking Status: Never smoker Past Alcohol Use History: None Reported Past Drug Use History: None Reported - Past Family History Mother Family Medical History: Diabetes Mellitus <aRn Alarcon - Last Filed: 07/24/23 14:47> General Exam Limitations: no limitations <Ran Alarcon - Last Filed: 07/24/23 14:47> General appearance: alert, in no apparent distress Head exam: Present: atraumatic, normocephalic Eye exam: Present: normal appearance Neck exam: Present: normal inspection Respiratory exam: Present: normal lung sounds bilaterally. Absent: respiratory distress, wheezes, rales, rhonchi, stridor Cardiovascular Exam: Present: regular rate, normal rhythm, normal heart sounds. Absent: systolic murmur, diastolic murmur, rubs, gallop, clicks Right Lower Leg exam: Present: tenderness, swelling, erythema Neurological exam: Present: alert, oriented X3 Psychiatric exam: Present: normal affect, normal mood Skin exam: Present: erythema <Marlene Yu - Last Filed: 07/25/23 23:06> - General Exam Comments Initial Comments: Physical Exam Vital signs reviewed General: Well-appearing, nontoxic, no acute distress. Head: Normocephalic, atraumatic Eyes: PERRLA, EOMI ENT: Airway patent Chest: Nonlabored breathing Skin: No visual rash, normal skin tone Neuro: Alert and oriented 3 Musculoskeletal: RLE 1+ pitting edema, erythema, and warmth. (Ran Alarcon) Course Vital Signs 07/24/23 07/24/23 13:37 23:31 Temperature 98.5 F 97.6 F Pulse Rate 67 67 Respiratory 22 17 Rate Blood Pressure 148/87 157/62 O2 Sat by Pulse 99 97 Oximetry Medical Decision Making <Ran Alarcon - Last Filed: 07/24/23 14:47> - Lab Data Result diagrams: 07/24/23 14:51 07/25/23 05:36 <Marlene Yu - Last Filed: 07/25/23 23:06> - Medical Decision Making Quicknote portion performed. Signed Ran Alarcon PA-C (Ran Alarcon) Was pt. sent in by a medical professional or institution (PATRICIA Ortega, NETWORK OPERATIONS CENTER ENGINEER, urgent care, hospital, or jail...) When possible be specific @ -No Did you speak to anyone other than the patient for history (EMS, parent, family, police, friend...)? What history was obtained from this source @ -No Did you review nursing and triage notes (agree or disagree)? Why? @ -I reviewed and agree with nursing and triage notes Were old charts reviewed (outside hosp., previous admission, EMS record, old EKG, old radiological studies, urgent care reports/EKG's, jail records)? Report findings @ -No old charts were reviewed Differential Diagnosis (chest pain, altered mental status, abdominal pain women, abdominal pain men, vaginal bleeding, weakness, fever, dyspnea, syncope, headache, dizziness, GI bleed, back pain, seizure, CVA, palpatations, mental health, musculoskeletal)? @ -Differential Musculoskeletal Muscular strain, contusion, ligament sprain, fracture, arthritis, septic arthritis, bursitis, cellulitis, muscle spasm, nerve compression, DVT, arterial occlusion, herpes zoster, electrolyte abnormality, tumor.... This is not meant to be in all inclusive list EKG interpreted by me (3pts min.). @ -As above X-rays interpreted by me (1pt min.). @ -X-ray shows soft tissue swelling without evidence of osseous erosion to suggest osteomyelitis. Findings suggestive of prior MCL injury with d esiccation. Severe atherosclerosis of the arterial vasculature. Degeneration changes of the knee with osteophyte formation joint space tearing CT interpreted by me (1pt min.). @ -None done U/S interpreted by me (1pt. min.). @ -Ultrasound is negative for DVT What testing was considered but not performed or refused? (CT, X-rays, U/S, labs)? Why? @ -None What meds were considered but not given or refused? Why? @ -None Did you discuss the management of the patient with other professionals (professionals i.e. , PA, NETWORK OPERATIONS CENTER ENGINEER, lab, RT, psych nurse, dialysis social worker, poultry packer, teacher, horticultural technical officer, case technician)? Give summary @ -I spoke with Dr. Banks, accepted admission Was smoking cessation discussed for >3mins.? @ -No Was critical care preformed (if so, how long)? @ -No Were there social determinants of health that impacted care today? How? (Homelessness, low income, unemployed, alcoholism, drug addiction, t ransportation, low edu. Level, literacy, decrease access to med. care, [facility], rehab)? @ -No Was there de-escalation of care discussed even if they declined (Discuss DNR or withdrawal of care, Hospice)? DNR status @ -No What co-morbidities impacted this encounter? (DM, HTN, Smoking, COPD, CAD, Cancer, CVA, ARF, Chemo, Hep., AIDS, mental health diagnosis, sleep apnea, morbid obesity)? @ -None Was patient admitted / discharged? Hospital course, mention meds given and route, prescriptions, significant lab abnormalities, going to OR and other pertinent info. @ -68-year-old male with history of recent procedure by his vascular surgeon Dr. Rodriguez presenting with chief complaint of right lower leg redness and swelling. Ultrasound negative for DVT and x-ray negative for acute osseous process or evidence of osteomyelitis. Clinical presentation consistent with ce llulitis. Patient is started on vancomycin given his history of MRSA. He will be admitted with vascular surgery consult. He is agreeable with this plan. I discussed this case with my attending Dr. Alvarez Undiagnosed new problem with uncertain prognosis? @ -No Drug Therapy requiring intensive monitoring for toxicity (Heparin, Nitro, Insuli n, Cardizem)? @ -No Were any procedures done? @ -No Diagnosis/symptom? @ -Cellulitis Acute, or Chronic, or Acute on Chronic? @ -Acute Uncomplicated (without systemic symptoms) or Complicated (systemic symptoms)? @ -Complicated Side effects of treatment? @ -No Exacerbation, Progression, or Severe Exacerbation? @ -No Poses a threat to life or bodily function? How? (Chest pain, [place], [place], pneumonia, PE, COPD, DKA, ARF, appy, cholecystitis, CVA, Diverticulitis, Homicidal, Suicidal, threat to staff... and all critical care pts) @ -yes (Marlene Yu) - Lab Data Lab Results 07/24/23 07/24/23 07/24/23 Range/Units 14:45 14:51 14:51 WBC 10.2 (3.8-10.6) k/uL RBC 4.39 (4.30-5.90) m/uL Hgb 12.4 L (13.0-17.5) gm/dL Hct 39.4 (39.0-53.0) % MCV 89.8 (80.0-100.0) fL MCH 28.3 (25.0-35.0) pg MCHC 31.6 (31.0-37.0) g/dL RDW 16.6 H (11.5-15.5) % Plt Count 219 (150-450) k/uL MPV 7.5 Neutrophils % 73 % Lymphocytes % 16 % Monocytes % 6 % Eosinophils % 3 % Basophils % 1 % Neutrophils # 7.5 (1.3-7.7) k/uL Lymphocytes # 1.6 (1.0-4.8) k/uL Monocytes # 0.6 (0-1.0) k/uL Eosinophils # 0.3 (0-0.7) k/uL Basophils # 0.1 (0-0.2) k/uL Hypochromasia Slight Anisocytosis Slight ESR 67 H (0-20) mm/Hr Sodium 139 (137-145) mmol/L Potassium 4.9 (3.5-5.1) mmol/L Chloride 104 (98-107) mmol/L Carbon Dioxide 25 (22-30) mmol/L Anion Gap 10 mmol/L BUN 40 H (9-20) mg/dL Creatinine 0.86 (0.66-1.25) mg/dL Est GFR (CKD-EPI)AfAm >90 (>60 ml/min/1.73 sqM) Est GFR (CKD-EPI)NonAf 88 (>60 ml/min/1.73 sqM) Glucose 140 H (74-99) mg/dL Calcium 8.9 (8.4-10.2) mg/dL Total Bilirubin 0.7 (0.2-1.3) mg/dL AST 40 (17-59) U/L ALT 18 (4-49) U/L Alkaline Phosphatase 73 (38-126) U/L C-Reactive Protein 2.4 H (<1.0) mg/dL Total Protein 6.7 (6.3-8.2) g/dL Albumin 3.6 (3.5-5.0) g/dL Urine Color Colorless Urine Appearance Clear (Clear) Urine pH 5.5 (5.0-8.0) Ur Specific [place] 1.015 (1.001-1.035) Urine Protein Negative (Negative) Urine Glucose (UA) Negative (Negative) Urine Ketones Negative (Negative) Urine Blood Negative (Negative) Urine Nitrite Negative (Negative) Urine Bilirubin Negative (Negative) Urine Urobilinogen <2.0 (<2.0) mg/dL Ur Leukocyte Esterase Negative (Negative) Disposition <Ran Alarcon - Last Filed: 07/24/23 14:47> Time of Disposition: 21:23 <Marlene Yu - Last Filed: 07/25/23 23:06> Clinical Impression: Cellulitis Disposition: ADMITTED IP TO THIS HOSP Condition: Fair
[2023-07-24 15:21] LABS: Anisocytosis Slight; Basophils # (A) 0.1 k/uL (0-0.2); Basophils % (A) 1 %; Eosinophils # (A) 0.3 k/uL (0-0.7); Eosinophils % (A) 3 %; HCT 39.4 % (39.0-53.0); HGB 12.4 gm/dL (13.0-17.5); Hypochromasia Slight; Lymphocytes # (A) 1.6 k/uL (1.0-4.8); Lymphocytes % (A) 16 %; MCH 28.3 pg (25.0-35.0); MCHC 31.6 g/dL (31.0-37.0); MCV 89.8 fL (80.0-100.0); Mean Platelet Volume 7.5; Monocytes # (A) 0.6 k/uL (0-1.0); Monocytes % (A) 6 %; Neutrophils # (A) 7.5 k/uL (1.3-7.7); Neutrophils % (A) 73 %; Platelet Count 219 k/uL (150-450); RBC 4.39 m/uL (4.30-5.90); RDW 16.6 % (11.5-15.5); WBC 10.2 k/uL (3.8-10.6)
--- NOTE | 2023-07-24 16:39 | XR ---
EXAMINATION TYPE: XR tibia fibula RT DATE OF EXAM: 07/24/2023 4:01 PM CLINICAL INDICATION:Male, 68 years old with history of infection r/o osteo free air; COMPARISON: None TECHNIQUE: XR tibia fibula RT; tibia/fibula was examined in AP and lateral projections. FINDINGS/IMPRESSION: 1. Soft tissue swelling without evidence of osseous erosion to suggest osteomyelitis. 2. Findings suggestive of prior MCL injury with desiccation. Elena. 3. Severe atherosclerosis of the arterial vasculature. 4. Degeneration changes of the knee with osteophyte formation joint space tearing.
--- NOTE | 2023-07-24 18:58 | US ---
EXAMINATION TYPE: US venous doppler duplex LE RT DATE OF EXAM: 07/24/2023 6:40 PM COMPARISON: NONE CLINICAL INDICATION: Male, 68 years old with history of r/o DVT; Right calf swelling and redness. Hx of cellulitis. No hx of DVT. On blood thinners SIDE PERFORMED: Right TECHNIQUE: The lower extremity deep venous system is examined utilizing real time linear array sonog lenin with graded compression, doppler sonography and color-flow sonography. VESSELS IMAGED: Common Femoral Vein Deep Femoral Vein Greater Saphenous Vein * Femoral Vein Popliteal Vein Small Saphenous Vein * Proximal Calf Veins (* superficial vessels) Right Leg: No evidence for DVT. Edema noted in calf IMPRESSION: No evidence for DVT within the right lower extremity imaged from the groin to the upper c nam. Pronounced subcutaneous soft tissue edema within the calf.
[2023-07-24 19:24] LABS: Erythrocyte Sedimentation Rate 67 mm/Hr (0-20)
[2023-07-24] MEDS ORDERED: NALOXONE 0.4 MG/ML 1 ML VIAL IV PRN (21:19)
[2023-07-24] MEDS ORDERED: ACETAMINOPHEN TAB 325 MG TAB PO PRN (21:19)
[2023-07-24] MEDS ORDERED: VANCOMYCIN IV PER PHARMACY 1 EACH MISC MISCELLANE PRN (21:22)
[2023-07-24] MEDS ORDERED: VANCOMYCIN 2,000 MG in SODIUM CHLORIDE 0.9% 500 ML 500 ML IVPB ONE (22:00)
[2023-07-24] MEDS: SODIUM CHLORIDE 0.9% 1,000 ML IV SCH (22:50)
[2023-07-24 23:13] LABS: ALT 18 U/L (4-49); African American GFR (CKD) >90 (>60 ml/min/1.73 sqM); Albumin 3.6 g/dL (3.5-5.0); Anion Gap 10 mmol/L; Blood Urea Nitrogen 40 mg/dL (9-20); C Reactive Protein 2.4 mg/dL (<1.0); Calcium 8.9 mg/dL (8.4-10.2); Carbon Dioxide 25 mmol/L (22-30); Chloride 104 mmol/L (98-107); Glucose 140 mg/dL (74-99); Non-African American GFR(CKD) 88 (>60 ml/min/1.73 sqM); Sodium 139 mmol/L (137-145)
[2023-07-24 23:14] LABS: AST 40 U/L (17-59); Alkaline Phosphatase 73 U/L (38-126); Potassium 4.9 mmol/L (3.5-5.1); Total Bilirubin 0.7 mg/dL (0.2-1.3); Total Protein 6.7 g/dL (6.3-8.2)
[2023-07-25 03:06] LABS: Appearance,Urine Clear (Clear); Bilirubin,Urine Negative (Negative); Blood,Urine Negative (Negative); Color,Urine Colorless; Glucose,Urine (UA) Negative (Negative); Ketones,Urine Negative (Negative); Leukocyte Esterase,Urine Negative (Negative); Nitrite,Urine Negative (Negative); PH, Urine 5.5 (5.0-8.0); Protein,Urine Negative (Negative); Specific Gravity,Urine 1.015 (1.001-1.035); Urobilinogen,Urine <2.0 mg/dL (<2.0)
[2023-07-25] MEDS: SODIUM CHLORIDE 0.9% 1,000 ML IV SCH ×3 (06:34→21:57)
[2023-07-25 06:45] LABS: African American GFR (CKD) >90 (>60 ml/min/1.73 sqM); Non-African American GFR(CKD) 88 (>60 ml/min/1.73 sqM)
[2023-07-25 06:54] LABS: Glucose,Whole Blood 100 mg/dL (70-110)
[2023-07-25] MEDS ORDERED: DEXTROSE 50% SYRINGE 50 ML IVP PRN ×2 (10:29)
[2023-07-25] MEDS ORDERED: INSULIN NPH 100 UNIT/ML 10 ML VIAL SQ SCH (10:30)
[2023-07-25] MEDS: FLUoxetine HCL 20 MG CAP PO SCH (11:24)
[2023-07-25] MEDS: FUROSEMIDE 40 MG TAB PO SCH (11:24)
[2023-07-25] MEDS: carvediloL 12.5 MG TAB PO SCH ×2 (11:24→22:02)
[2023-07-25] MEDS: APIXABAN 5 MG TAB PO SCH ×2 (11:25→22:02)
[2023-07-25] MEDS: TAMSULOSIN 0.4 MG CAP.ER.24H PO SCH (11:25)
[2023-07-25 11:44] LABS: Glucose,Whole Blood 147 mg/dL (70-110)
[2023-07-25] MEDS: INSULIN ASPART (NovoLOG) 100 UNIT/ML VIAL SQ SCH ×2 (12:14→18:05)
[2023-07-25] MEDS: TESTOSTERONE TOPICAL SCH (12:16)
[2023-07-25] MEDS: VANCOMYCIN 2,000 MG in SODIUM CHLORIDE 0.9% 500 ML 500 ML IVPB SCH ×2 (12:36→22:03)
--- NOTE | 2023-07-25 16:12 | P.GSCN ---
History of Present Illness History of present illness: 68-year-old gentleman well known to me from the past patient has a long-standing history of similar right extremity. Patient had a venous ultrasound done in the past which showed large defects present in the great saphenous vein. Patient had a right great saphenous venous radiofrequency ablation ultrasound was done and post laser great saphenous vein is occluded no evidence of defect th rombosis. Patient has a history of cellulitis prolonged period of time we've been treating with local wound care. Medical history history of A. fib, diabetes, hypertension, on examination patient is alert seen in his room Neck is supple no bruit appreciated Chest is clear and good" and first and second sound present Abdomen soft nontender Femorals are palpable patient has a marked cellulitis and lower extremity with some swelling upper thigh area has no phlebitis no evidence of any cellulitis extending above the knee we have applied the great saphenous vein above the knee with radiofrequency. Plan is recommended to have ID consult for IV antibiotic No. 2. Use Silvadene cream with compression wrap with 2 pillow elevation we will follow with you Past Medical History Past Medical History: Atrial Fibrillation, Cancer, Diabetes Mellitus, Hyperl ipidemia, Hypertension, Sleep Apnea/CPAP/BIPAP Additional Past Medical History / Comment(s): Basal cell carcinoma, Heart murmur History of Any Multi-Drug Resistant Organisms: MRSA Year Discovered:: 02/24/23 MDRO Source:: Right Leg Past Surgical History: No Surgical Hx Reported Additional Past Surgical History / Comment(s): Cataract surgery right eye, RLE vein stripping Past Anesthesia/Blood Transfusion Reactions: No Reported Reaction Past Psychological History: Depression Smoking Status: Never smoker Past Alcohol Use History: None Reported Past Drug Use History: None Reported - Past Family History Mother Family Medical History: Diabetes Mellitus Medications and Allergies Home Medications Medication Instructions Recorded Confirmed Type Apixaban [Eliquis] 5 mg PO BID 04/11/17 07/24/23 History Insulin Glargine,Hum.rec.anlog 30 units SQ HS 12/12/22 07/24/23 History [Lantus Solostar Pen] Insulin Lispro [humaLOG Kwikpen] See Protocol SQ TID-W/MEALS 12/12/22 07/24/23 History Testosterone [Androgel 1.62% Gel 2 packet TOPICAL DAILY 12/12/22 07/24/23 History Packet] Tamsulosin HCl [Flomax] 0.4 mg PO DAILY 01/02/23 07/24/23 History Furosemide [Lasix] 40 mg PO DAILY 04/18/23 07/24/23 History Potassium Chloride ER [K-Dur 20] 20 meq PO DAILY 04/18/23 07/24/23 History Atorvastatin [Lipitor] 10 mg PO HS 05/04/23 07/24/23 History FLUoxetine HCL [PROzac] 40 mg PO DAILY cap 05/07/23 07/24/23 Rx Semaglutide [Ozempic] 0.25 mg SQ NEVAREZ 07/24/23 07/24/23 History carvediloL [Coreg] 12.5 mg PO Q12H 07/24/23 07/24/23 History Allergies Allergy/AdvReac Type Severity Reaction Status Date / Time famotidine [From Pepcid] Allergy Unknown Verified 07/24/23 22:31 Penicillins Allergy Rash/Hives Verified 07/24/23 22:31 hydrocodone AdvReac Hallucinati Verified 07/24/23 22:31 ons lisinopril [From Prinivil] AdvReac Cough Verified 07/24/23 22:31 Surgical - Exam Vital Signs Temp Pulse Resp BP Pulse Ox 98.5 F 67 22 148/87 99 07/24/23 13:37 07/24/23 13:37 07/24/23 13:37 07/24/23 13:37 07/24/23 13:37 Results - Labs 07/24/23 14:51 07/25/23 05:36 Abnormal Lab Results - Last 24 Hours (Table) 07/24/23 07/24/23 07/25/23 Range/Units 14:51 14:51 11:43 ESR 67 H (0-20) mm/Hr BUN 40 H (9-20) mg/dL Glucose 140 H (74-99) mg/dL POC Glucose (mg/dL) 147 H (70-110) mg/dL C-Reactive Protein 2.4 H (<1.0) mg/dL Diabetes panel 07/24/23 07/25/23 Range/Units 14:51 05:36 Sodium 139 (137-145) mmol/L Potassium 4.9 (3.5-5.1) mmol/L Chloride 104 (98-107) mmol/L Carbon Dioxide 25 (22-30) mmol/L BUN 40 H (9-20) mg/dL Creatinine 0.86 0.87 (0.66-1.25) mg/dL Glucose 140 H (74-99) mg/dL Calcium 8.9 (8.4-10.2) mg/dL AST 40 (17-59) U/L ALT 18 (4-49) U/L Alkaline Phosphatase 73 (38-126) U/L Total Protein 6.7 (6.3-8.2) g/dL Albumin 3.6 (3.5-5.0) g/dL Calcium panel 07/24/23 Range/Units 14:51 Calcium 8.9 (8.4-10.2) mg/dL Albumin 3.6 (3.5-5.0) g/dL Pituitary panel 07/24/23 07/25/23 Range/Units 14:51 05:36 Sodium 139 (137-145) mmol/L Potassium 4.9 (3.5-5.1) mmol/L Chloride 104 (98-107) mmol/L Carbon Dioxide 25 (22-30) mmol/L BUN 40 H (9-20) mg/dL Creatinine 0.86 0.87 (0.66-1.25) mg/dL Glucose 140 H (74-99) mg/dL Calcium 8.9 (8.4-10.2) mg/dL Adrenal panel 07/24/23 07/25/23 Range/Units 14:51 05:36 Sodium 139 (137-145) mmol/L Potassium 4.9 (3.5-5.1) mmol/L Chloride 104 (98-107) mmol/L Carbon Dioxide 25 (22-30) mmol/L BUN 40 H (9-20) mg/dL Creatinine 0.86 0.87 (0.66-1.25) mg/dL Glucose 140 H (74-99) mg/dL Calcium 8.9 (8.4-10.2) mg/dL Total Bilirubin 0.7 (0.2-1.3) mg/dL AST 40 (17-59) U/L ALT 18 (4-49) U/L Alkaline Phosphatase 73 (38-126) U/L Total Protein 6.7 (6.3-8.2) g/dL Albumin 3.6 (3.5-5.0) g/dL
[2023-07-25 17:24] LABS: Glucose,Whole Blood 159 mg/dL (70-110)
[2023-07-25] MEDS ORDERED: ONDANSETRON 4 MG/2 ML VIAL IVP PRN (20:15)
[2023-07-25] MEDS ORDERED: TEMAZEPAM 15 MG CAP PO PRN (20:15)
[2023-07-25] MEDS ORDERED: CALCIUM CARBONATE 500 MG CHEWABLE PO PRN (20:15)
[2023-07-25] MEDS ORDERED: ALPRAZolam 0.25 MG TAB PO PRN (20:15)
[2023-07-25] MEDS ORDERED: LACTULOSE 20 GM/30 ML CUP PO PRN (20:15)
--- NOTE | 2023-07-25 20:15 | P.HPIM ---
History of Present Illness H&P Date: 07/25/23 Chief Complaint: Right leg swelling and redness Hospital course: Patient is a 68-year-old male with a past medical history significant for diabetes mellitus hypertension hyperlipidemia sleep apnea atrial fibrillation with multiple admissions the past for right leg cellulitis, About 3 weeks ago patient had the right great saphenous venous radiofrequency ablation ultrasound and post-laser great saphenous vein is occluded this was done by Dr. Olga Rodriguez from vascular. Patient now presents with increasing redness and swelling of that leg. No fever no chills. Breakdown of skin on the lateral side of the right lower leg. With some pus. Some pain. Review of systems: GEN.: [None] EYES: [None] HEENT: [None] NECK: [None] RESPIRATORY: [None] CARDIOVASCULAR: [None] GASTROINTESTINAL: [None] GENITOURINARY: [None] MUSCULOSKELETAL: [None] LYMPHATICS: [None] HEMATOLOGICAL: [None] PSYCHIATRY: [None] NEUROLOGICAL: [None] Past medical history to include: Atrial fibrillation, diabetes, hypertension, hyperlipidemia, obstructive sleep apnea, basal cell carcinoma, depression, recurrent right leg cellulitis Social history: Lives alone. Does get home nurse and physical therapy. Denies smoking, alcohol. Physical examination: VITAL SIGNS: 97.8, 66, 17, 145/68, 96% room air GENERAL: BMI 36.9, sitting at edge of the bed comfortable EYES: Pupils equal. Conjunctiva normal. HEENT: External appearance of nose and ears normal, oral cavity grossly normal. NECK: JVD not raised; masses not palpable. HEART: First and second heart sounds are normal; edema present LUNGS: Respiratory rate normal; clear to auscultation. ABDOMEN: Soft, distended, nontender, liver spleen not palpable, no masses palpable. PSYCH: Alert and oriented x3; mood and affect normal. MUSCULOSKELETAL:No Clubbing/cyanosis;muscles-grossly intact EXTREMITIES: Right lower extremity: Most swelling compared to the left. Patches of redness. Right leg above the ankle to the midcalf. Area of breakdown on the lateral side. INVESTIGATIONS, reviewed in the clinical context: 07/24/2023: White count 10.2 hemoglobin 12.4 platelets 219 potassium 4.9 BUN 40 creatinine 0.86 CRP 2.4 Venous Doppler right leg: Negative for DVT Assessment and plan: -Acute on chronic recurrent right lower extremity cellulitis, with venous ulcer . Patient recently had radiofrequency ablation of the vein by Dr. Olga Rodriguez. IV vancomycin. Local wound care per vascular and ID. Silvadene cream with compression wrap and elevation -Chronic gait dysfunction. Multiple medical problems. Uses walker at baseline -Paroxysmal atrial fibrillation currently normal sinus rhythm Coreg. Eliquis -Diabetes mellitus type 2 , chronically on insulin Follow Accu-Cheks -Secondary moderate pulmonary hypertension -Severe aortic stenosis: Does follow with cardiology -Essential Hypertension Coreg to 12.5 by mouth twice a day. -Hyperlipidemia Lipitor 10 mg daily - obesity with BMI of 36.9 Weight loss measures -Obstructive sleep apnea and does not use CPAP as he cannot tolerate the mask -Depression Prozac. -BPH Flomax -no code Given the complexity and severity of patient's condition expect the patient to be in the hospital at least for 2 overnights Past Medical History Past Medical History: Atrial Fibrillation, Cancer, Diabetes Mellitus, Hyperlipidemia, Hypertension, Sleep Apnea/CPAP/BIPAP Additional Past Medical History / Comment(s): Basal cell carcinoma, Heart murmur History of Any Multi-Drug Resistant Organisms: MRSA Date of last positivie culture/infection: 02/24/23 MDRO Source:: Right Leg Past Surgical History: No Surgical Hx Reported Additional Past Surgical History / Comment(s): Cataract surgery right eye, RLE vein stripping Past Anesthesia/Blood Transfusion Reactions: No Reported Reaction Past Psychological History: Depression Smoking Status: Never smoker Past Alcohol Use History: None Reported Past Drug Use History: None Reported - Past Family History Mother Family Medical History: Diabetes Mellitus Medications and Allergies Home Medications Medication Instructions Recorded Confirmed Type Apixaban [Eliquis] 5 mg PO BID 04/11/17 07/24/23 History Insulin Glargine,Hum.rec.anlog 30 units SQ HS 12/12/22 07/24/23 History [Lantus Solostar Pen] Insulin Lispro [humaLOG Kwikpen] See Protocol SQ TID-W/MEALS 12/12/22 07/24/23 History Testosterone [Androgel 1.62% Gel 2 packet TOPICAL DAILY 12/12/22 07/24/23 History Packet] Tamsulosin HCl [Flomax] 0.4 mg PO DAILY 01/02/23 07/24/23 History Furosemide [Lasix] 40 mg PO DAILY 04/18/23 07/24/23 History Potassium Chloride ER [K-Dur 20] 20 meq PO DAILY 04/18/23 07/24/23 History Atorvastatin [Lipitor] 10 mg PO HS 05/04/23 07/24/23 History FLUoxetine HCL [PROzac] 40 mg PO DAILY cap 05/07/23 07/24/23 Rx Semaglutide [Ozempic] 0.25 mg SQ NEVAREZ 07/24/23 07/24/23 History carvediloL [Coreg] 12.5 mg PO Q12H 07/24/23 07/24/23 History Allergies Allergy/AdvReac Type Severity Reaction Status Date / Time famotidine [From Pepcid] Allergy Unknown Verified 07/24/23 22:31 Penicillins Allergy Rash/Hives Verified 07/24/23 22:31 hydrocodone AdvReac Hallucinati Verified 07/24/23 22:31 ons lisinopril [From Prinivil] AdvReac Cough Verified 07/24/23 22:31 Physical Exam Vitals: Vital Signs Temp Pulse Pulse Resp BP BP BP 07/25/23 19:51 97.8 F 66 16 136/57 07/25/23 12:10 97.5 F L 66 17 151/75 07/25/23 06:56 97.8 F 66 17 145/68 07/25/23 02:00 97.8 F 68 16 151/74 07/25/23 00:20 69 159/71 07/25/23 00:16 97.4 F L 66 16 195/96 07/24/23 23:31 97.6 F 67 17 157/62 Pulse Ox 07/25/23 19:51 98 07/25/23 12:10 95 07/25/23 06:56 07/25/23 02:00 96 07/25/23 00:20 07/25/23 00:16 99 07/24/23 23:31 97 Intake and Output 07/25/23 07/25/23 07/25/23 06:59 14:59 22:59 Intake Total 590 500 Output Total 800 Balance -210 500 Intake: Intake, IV Titration 500 Amount Vancomycin 2,000 mg In 500 Sodium Chloride 0.9% 500 ml 500 ml @ 167 mls/hr IVPB Q12H [facility] Rx#: [id number] Oral 590 Output: Urine 800 Other: # Bowel Movements 1 Weight 127.006 kg Results CBC & Chem 7: 07/24/23 14:51 07/25/23 05:36 Labs: Abnormal Lab Results - Last 24 Hours (Table) 07/24/23 07/25/23 07/25/23 Range/Units 14:51 11:43 17:22 BUN 40 H (9-20) mg/dL Glucose 140 H (74-99) mg/dL POC Glucose (mg/dL) 147 H 159 H (70-110) mg/dL C-Reactive Protein 2.4 H (<1.0) mg/dL Thrombosis Risk Factor Assmnt - Choose All That Apply Any of the Below Risk Factors Present?: Yes Each Factor Represents 1 point: Obesity (BMI >25), Swollen legs (current) Other Risk Factors: Yes Each Risk Factor Represents 2 Points: Age 61-74 years Thrombosis Risk Factor Assessment Total Risk Factor Score: 4 Thrombosis Risk Factor Assessment Level: Moderate Risk
[2023-07-25 20:39] LABS: Glucose,Whole Blood 166 mg/dL (70-110)
[2023-07-25] MEDS: ATORVASTATIN 10 MG TAB PO SCH (22:02)
[2023-07-25] MEDS: INSULIN DETEMIR (LEVEMIR) 100 UNIT/ML SYR SQ SCH (22:02)
[2023-07-26 05:39] LABS: African American GFR (CKD) >90 (>60 ml/min/1.73 sqM); Non-African American GFR(CKD) 81 (>60 ml/min/1.73 sqM)
--- NOTE | 2023-07-26 05:50 | P.CONS ---
History of Present Illness - Reason for Consult Consult date: 07/25/23 - History of Present Illness Patient is a 68-year-old male with a past medical his significant for atrial fibrillation diabetes mellitus hypertension hyperlipidemia patient did have a history of right lower extremity venous stasis ulcer and recurrent cellulitis and has previously grown MRSA patient presented to the ER yesterday afternoon for evaluation of increasing swelling and redness to the right lower extremity apparently the patient did have a vein stripping procedure performed by about 3 weeks ago, patient has been complaining of increasing swelling and redness to the right leg and did have diffuse aching pain moderate intensity without any radiation patient did not have any open wound but did have some serous drainage from the legs, patient denies high-grade fever with the symptoms the patient was evaluated on presentation to the hospital the patient was afebrile did have a white count of 10.2 creatinine 0.87 urine has been negative blood cultures were obtained patient did have a venous Doppler study no evidence of DVT submitted the soft tissue edema, patient was started on vanc omycin infectious disease was consulted for further management of antibiotic therapy Past Medical History Past Medical History: Atrial Fibrillation, Cancer, Diabetes Mellitus, Hyperlipidemia, Hypertension, Sleep Apnea/CPAP/BIPAP Additional Past Medical History / Comment(s): Basal cell carcinoma, Heart murmur History of Any Multi-Drug Resistant Organisms: MRSA Year Discovered:: 02/24/23 MDRO Source:: Right Leg Past Surgical History: No Surgical Hx Reported Additional Past Surgical History / Comment(s): Cataract surgery right eye, RLE vein stripping Past Anesthesia/Blood Transfusion Reactions: No Reported Reaction Past Psychological History: Depression Smoking Status: Never smoker Past Alcohol Use History: None Reported Past Drug Use History: None Reported - Past Family History Mother Family Medical History: Diabetes Mellitus Medications and Allergies Home Medications Medication Instructions Recorded Confirmed Type Apixaban [Eliquis] 5 mg PO BID 04/11/17 07/24/23 History Insulin Glargine,Hum.rec.anlog 30 units SQ HS 12/12/22 07/24/23 History [Lantus Solostar Pen] Insulin Lispro [humaLOG Kwikpen] See Protocol SQ TID-W/MEALS 12/12/22 07/24/23 History Testosterone [Androgel 1.62% Gel 2 packet TOPICAL DAILY 12/12/22 07/24/23 History Packet] Tamsulosin HCl [Flomax] 0.4 mg PO DAILY 01/02/23 07/24/23 History Furosemide [Lasix] 40 mg PO DAILY 04/18/23 07/24/23 History Potassium Chloride ER [K-Dur 20] 20 meq PO DAILY 04/18/23 07/24/23 History Atorvastatin [Lipitor] 10 mg PO HS 05/04/23 07/24/23 History FLUoxetine HCL [PROzac] 40 mg PO DAILY cap 05/07/23 07/24/23 Rx Semaglutide [Ozempic] 0.25 mg SQ NEVAREZ 07/24/23 07/24/23 History carvediloL [Coreg] 12.5 mg PO Q12H 07/24/23 07/24/23 History Allergies Allergy/AdvReac Type Severity Reaction Status Date / Time famotidine [From Pepcid] Allergy Unknown Verified 07/24/23 22:31 Penicillins Allergy Rash/Hives Verified 07/24/23 22:31 hydrocodone AdvReac Hallucinati Verified 07/24/23 22:31 ons lisinopril [From Prinivil] AdvReac Cough Verified 07/24/23 22:31 Physical Exam Vitals: Vital Signs Temp Pulse Pulse Resp BP BP BP 07/25/23 12:10 97.5 F L 66 17 151/75 07/25/23 06:56 97.8 F 66 17 145/68 07/25/23 02:00 97.8 F 68 16 151/74 07/25/23 00:20 69 159/71 07/25/23 00:16 97.4 F L 66 16 195/96 07/24/23 23:31 97.6 F 67 17 157/62 Pulse Ox 07/25/23 12:10 95 07/25/23 06:56 07/25/23 02:00 96 07/25/23 00:20 07/25/23 00:16 99 07/24/23 23:31 97 Intake and Output 07/25/23 07/25/23 07/25/23 06:59 14:59 22:59 Intake Total 590 Output Total 800 Balance -210 Intake: Oral 590 Output: Urine 800 Other: # Bowel Movements 1 Weight 127.006 kg Results CBC & Chem 7: 07/24/23 14:51 07/26/23 04:31 Labs: Abnormal Lab Results - Last 24 Hours (Table) 07/24/23 07/24/23 07/25/23 Range/Units 14:51 14:51 11:43 ESR 67 H (0-20) mm/Hr BUN 40 H (9-20) mg/dL Glucose 140 H (74-99) mg/dL POC Glucose (mg/dL) 147 H (70-110) mg/dL C-Reactive Protein 2.4 H (<1.0) mg/dL Assessment and Plan Plan: 1patient was in the hospital with increasing pain swelling redness of the right lower extremity this patient noted to have a history of venous stasis ulcer and recently did have a vein stripping procedure and the previous culture positive for MRSA concerning for cellulitis likely from gram-positive skin deniz 2-marked the area of the redness 3-Andrea wrap to the leg to keep the swelling down 4-vancomycin pharmacy to dose target trough of 15 while watching kidney function and Vanco trough closely We will follow on clinical condition and cultures to further adjust medication if needed Thank you for this consultation we will follow the patient along with you Dictation was produced using [employer] dictation software. please excuse any grammatical, word or spelling errors. Time with Patient: Greater than 30
[2023-07-26 06:53] LABS: Glucose,Whole Blood 110 mg/dL (70-110)
[2023-07-26] MEDS: INSULIN ASPART (NovoLOG) 100 UNIT/ML VIAL SQ SCH ×3 (07:59→17:59)
[2023-07-26] MEDS: FLUoxetine HCL 20 MG CAP PO SCH (08:00)
[2023-07-26] MEDS: TAMSULOSIN 0.4 MG CAP.ER.24H PO SCH (08:00)
[2023-07-26] MEDS: APIXABAN 5 MG TAB PO SCH ×2 (08:00→20:25)
[2023-07-26] MEDS: FUROSEMIDE 40 MG TAB PO SCH (08:00)
[2023-07-26] MEDS: carvediloL 12.5 MG TAB PO SCH ×2 (08:00→20:25)
[2023-07-26] MEDS: TESTOSTERONE TOPICAL SCH (09:12)
[2023-07-26 11:21] LABS: Glucose,Whole Blood 139 mg/dL (70-110)
[2023-07-26] MEDS: VANCOMYCIN 2,000 MG in SODIUM CHLORIDE 0.9% 500 ML 500 ML IVPB SCH ×2 (11:37→22:56)
--- NOTE | 2023-07-26 12:26 | P.PN ---
Subjective Progress Note Date: 07/26/23 Principal diagnosis: Reason for follow-up is right lower extremity cellulitis. Patient is a 68-year-old male with a past medical his significant for atrial fibrillation diabetes mellitus hypertension hyperlipidemia patient did have a history of right lower extremity venous stasis ulcer and recurrent cellulitis and has previously grown MRSA patient presented to the ER for evaluation of increasing swelling redness to the right lower extremity, patient has been diagnosed with a cellulitis admit to the hospital. On today's evaluation that is 07/26/2023 patient denies having any fever or any chills he is breathing comfortably on room air no chest pain shortness of breath or cough no nausea vomiting abdominal pain or any worsening pain to the right lower extremity. Patient did have a creatinine 0.95 blood cultures so far pending Objective - Vital Signs Vital signs: Vital Signs Temp 97.6 F 07/26/23 11:15 Pulse 65 07/26/23 11:15 Resp 16 07/26/23 11:15 BP 146/70 07/26/23 11:15 Pulse Ox 96 07/26/23 11:15 FiO2 Intake & Output 07/25/23 07/26/23 07/26/23 18:59 06:59 18:59 Intake Total 500 Balance 500 Intake: Intake, IV Titration 500 Amount Vancomycin 2,000 mg In 500 Sodium Chloride 0.9% 500 ml 500 ml @ 167 mls/hr IVPB Q12H [facility] Rx#: [id number] Other: # Voids 3 - Exam GENERAL DESCRIPTION: An elderly male lying in bed in no distress RESPIRATORY SYSTEM: Unlabored breathing , decreased breath sounds at bases HEART: S1 S2 regular rate and rhythm , ABDOMEN: Soft , no tenderness EXTREMITIES: Right lower extremity is currently wrapped in Andrea wrap no drainage on the dressing - Labs CBC & Chem 7: 07/24/23 14:51 07/26/23 04:31 Labs: Abnormal Lab Results - Last 24 Hours (Table) 07/25/23 07/25/23 07/26/23 Range/Units 17:22 20:30 11:19 POC Glucose (mg/dL) 159 H 166 H 139 H (70-110) mg/dL Microbiology - Last 24 Hours (Table) 07/25/23 18:16 Gram Stain - Preliminary Leg - Right 07/24/23 14:51 Blood Culture - Preliminary Blood 07/24/23 14:51 Blood Culture - Preliminary Blood Assessment and Plan (1) Cellulitis of right leg Current Visit: No Status: Acute Code(s): L03.115 - CELLULITIS OF RIGHT LOWER LIMB SNOMED Code(s): 23260552415629268 Plan: 1patient was in the hospital with increasing pain swelling redness of the right lower extremity this patient noted to have a history of venous stasis ulcer and recently did have a vein stripping procedure and the previous culture positive for MRSA concerning for cellulitis likely from gram-positive skin deniz 2patient to continue with Andrea wrap to the leg to keep the swelling down 3continue with the vancomycin while watching his kidney function closely while waiting for the culture to finalize Dictation was produced using [employer] dictation software. please excuse any grammatical, word or spelling errors. Time with Patient: Less than 30
[2023-07-26] MEDS: SILVER sulfADIAZINE Cream 400 GM 1 APPLIC APPLIC TOPICAL SCH (17:42)
[2023-07-26 17:45] LABS: Glucose,Whole Blood 225 mg/dL (70-110)
[2023-07-26] MEDS: INSULIN DETEMIR (LEVEMIR) 100 UNIT/ML SYR SQ SCH (20:25)
[2023-07-26] MEDS: ATORVASTATIN 10 MG TAB PO SCH (20:25)
[2023-07-26] MEDS: SODIUM CHLORIDE 0.9% 1,000 ML IV SCH (20:26)
[2023-07-26 20:28] LABS: Glucose,Whole Blood 220 mg/dL (70-110)
[2023-07-26] MEDS ORDERED: VANCOMYCIN TROUGH DUE 1 EACH MISC MISCELLANE ONE (22:00)
--- NOTE | 2023-07-26 22:35 | P.PN ---
Progress Note - Text Progress Note Date: 07/26/23 Chief Complaint: Right leg swelling and redness Hospital course: Patient is a 68-year-old male with a past medical history significant for diabetes mellitus hypertension hyperlipidemia sleep apnea atrial fibrillation with multiple admissions the past for right leg cellulitis, About 3 weeks ago patient had the right great saphenous venous radiofrequency ablation ultrasound and post-laser great saphenous vein is occluded this was done by Dr. Olga Rodriguez from vascular. Patient now presents with increasing redness and swelling of that leg. No fever no chills. Breakdown of skin on the lateral side of the right lower leg. With some pus. Some pain. 07/26/2023: Diet dressing in the right leg. No fever no chills. Tolerating diet. Being followed by ID and vascular. On IV vancomycin. Active Medications Acetaminophen (Acetaminophen Tab 325 Mg Tab) 650 mg PO Q6HR PRN PRN Reason: Mild Pain or Fever > 100.5 Alprazolam (Alprazolam 0.25 Mg Tab) 0.25 mg PO Q6HR PRN PRN Reason: Anxiety Apixaban (Apixaban 5 Mg Tab) 5 mg PO BID [facility]; Protocol Last Admin: 07/26/23 20:25 Dose: 5 mg Atorvastatin Calcium (Atorvastatin 10 Mg Tab) 10 mg PO HS [facility] Last Admin: 07/26/23 20:25 Dose: 10 mg Calcium Carbonate/Glycine (Calcium Carbonate 500 Mg Chewable) 1,000 mg PO Q4HR PRN PRN Reason: Dyspepsia Carvedilol (Carvedilol 12.5 Mg Tab) 12.5 mg PO Q12HR [facility] Last Admin: 07/26/23 20:25 Dose: 12.5 mg Dextrose/Water (Dextrose 50% Syringe 50 Ml) 25 ml IVP PER PROTOCOL PRN; Protocol PRN Reason: Hypoglycemia Dextrose/Water (Dextrose 50% Syringe 50 Ml) 50 ml IVP PER PROTOCOL PRN; Protocol PRN Reason: Hypoglycemia Fluoxetine HCl (Fluoxetine Hcl 20 Mg Cap) 40 mg PO DAILY [facility] Last Admin: 07/26/23 08:00 Dose: 40 mg Furosemide (Furosemide 40 Mg Tab) 40 mg PO DAILY [facility] Last Admin: 07/26/23 08:00 Dose: 40 mg Vancomycin HCl 2,000 mg/ (Sodium Chloride) 500 mls @ 167 mls/hr IVPB Q12H [facility] Last Admin: 07/26/23 11:37 Dose: 167 mls/hr Sodium Chloride (Saline 0.9%) 1,000 mls @ 10 mls/hr IV .Q24H [facility] Last Admin: 07/26/23 20:26 Dose: 10 mls/hr Insulin Aspart (Insulin Aspart (Novolog) 100 Unit/Ml Vial) 0 unit SQ AC-TID [facility]; Protocol Last Admin: 07/26/23 17:59 Dose: 4 unit Insulin Detemir (Insulin Detemir (Levemir) 100 Unit/Ml Syr) 24 unit SQ HS [facility] Last Admin: 07/26/23 20:25 Dose: 24 unit Lactulose (Lactulose 20 Gm/30 Ml Cup) 20 gm PO DAILY PRN PRN Reason: Constipation Naloxone HCl (Naloxone 0.4 Mg/Ml 1 Ml Vial) 0.2 mg IV Q2M PRN PRN Reason: Opioid Reversal Patient's Own ( Semaglutide [Ozempic ] 0.25 Mg/0.368 Ml Pen.Injctr) 0.25 mg SQ NEVAREZ [facility] Testosterone [ Androgel] 1.62% Gel Packet 1.25 Gm/Pkt 2 packet TOPICAL HS [facility] Ondansetron HCl (Ondansetron 4 Mg/2 Ml Vial) 4 mg IVP Q8HR PRN PRN Reason: Nausea And Vomiting Silver Sulfadiazine (Silver Sulfadiazine Cream 400 Gm 1 Applic Applic) 1 applic TOPICAL DAILY [facility]; Protocol Last Admin: 07/26/23 17:42 Dose: Not Given Tamsulosin HCl (Tamsulosin 0.4 Mg Cap.Er.24h) 0.4 mg PO DAILY [facility] Last Admin: 07/26/23 08:00 Dose: 0.4 mg Temazepam (Temazepam 15 Mg Cap) 15 mg PO HS PRN PRN Reason: Insomnia Past medical history to include: Atrial fibrillation, diabetes, hypertension, hyperlipidemia, obstructive sleep apnea, basal cell carcinoma, depression, recurrent right leg cellulitis Social history: Lives alone. Does get home nurse and physical therapy. Denies smoking, alcohol. Physical examination: VITAL SIGNS: 97.6, 65, 16, 146/70, 96% room air GENERAL: BMI 36.9, sitting at edge of the bed comfortable EYES: Pupils equal. Conjunctiva normal. HEENT: External appearance of nose and ears normal, oral cavity grossly normal. NECK: JVD not raised; masses not palpable. HEART: First and second heart sounds are normal; edema present LUNGS: Respiratory rate normal; clear to auscultation. ABDOMEN: Soft, distended, nontender, liver spleen not palpable, no masses palpable. PSYCH: Alert and oriented x3; mood and affect normal. MUSCULOSKELETAL:No Clubbing/cyanosis;muscles-grossly intact EXTREMITIES: Right lower extremity: In a dressing INVESTIGATIONS, reviewed in the clinical context: 07/24/2023: White count 10.2 hemoglobin 12.4 platelets 219 potassium 4.9 BUN 40 creatinine 0.86 CRP 2.4 Venous Doppler right leg: Negative for DVT Assessment and plan: -Acute on chronic recurrent right lower extremity cellulitis, with venous ulcer . Patient recently had radiofrequency ablation of the vein by Dr. Olga Rodriguez. IV vancomycin. Local wound care per vascular and ID. Silvadene cream with compression wrap and elevation -Chronic gait dysfunction. Multiple medical problems. Uses walker at baseline -Paroxysmal atrial fibrillation currently normal sinus rhythm Coreg. Eliquis -Diabetes mellitus type 2 , chronically on insulin Follow Accu-Cheks -Secondary moderate pulmonary hypertension -Severe aortic stenosis: Does follow with cardiology -Essential Hypertension Coreg to 12.5 by mouth twice a day. -Hyperlipidemia Lipitor 10 mg daily - obesity with BMI of 36.9 Weight loss measures -Obstructive sleep apnea and does not use CPAP as he cannot tolerate the mask -Depression Prozac. -BPH Flomax -no code I'll await ID and vascular. Patient requiring IV antibiotics. Not ready for discharge. Discussed with vascular. Past Medical History Past Medical History: Atrial Fibrillation, Cancer, Diabetes Mellitus, Hyperlipidemia, Hypertension, Sleep Apnea/CPAP/BIPAP Additional Past Medical History / Comment(s): Basal cell carcinoma, Heart murmur History of Any Multi-Drug Resistant Organisms: MRSA Date of last positivie culture/infection: 02/24/23 MDRO Source:: Right Leg Past Surgical History: No Surgical Hx Reported Additional Past Surgical History / Comment(s): Cataract surgery right eye, RLE vein stripping Past Anesthesia/Blood Transfusion Reactions: No Reported Reaction Past Psychological History: Depression Smoking Status: Never smoker Past Alcohol Use History: None Reported Past Drug Use History: None Reported
[2023-07-26] MEDS: TESTOSTERONE 1.62% TOPICAL SCH (22:48)
[2023-07-27 07:03] LABS: Glucose,Whole Blood 111 mg/dL (70-110)
[2023-07-27] MEDS: INSULIN ASPART (NovoLOG) 100 UNIT/ML VIAL SQ SCH ×3 (07:13→18:48)
[2023-07-27 07:58] LABS: Anisocytosis Slight; Basophils # (A) 0.1 k/uL (0-0.2); Basophils % (A) 1 %; Eosinophils # (A) 0.4 k/uL (0-0.7); Eosinophils % (A) 5 %; HCT 36.9 % (39.0-53.0); HGB 12.1 gm/dL (13.0-17.5); Hypochromasia Slight; Lymphocytes # (A) 1.6 k/uL (1.0-4.8); Lymphocytes % (A) 20 %; MCH 29.7 pg (25.0-35.0); MCHC 32.8 g/dL (31.0-37.0); MCV 90.7 fL (80.0-100.0); Mean Platelet Volume 7.1; Monocytes # (A) 0.5 k/uL (0-1.0); Monocytes % (A) 7 %; Neutrophils # (A) 5.2 k/uL (1.3-7.7); Neutrophils % (A) 66 %; Platelet Count 193 k/uL (150-450); RBC 4.06 m/uL (4.30-5.90); RDW 16.2 % (11.5-15.5)
[2023-07-27 08:17] LABS: African American GFR (CKD) 84 (>60 ml/min/1.73 sqM); Anion Gap 10 mmol/L; Blood Urea Nitrogen 26 mg/dL (9-20); Calcium 8.2 mg/dL (8.4-10.2); Carbon Dioxide 26 mmol/L (22-30); Chloride 104 mmol/L (98-107); Glucose 113 mg/dL (74-99); Non-African American GFR(CKD) 73 (>60 ml/min/1.73 sqM); Potassium 3.9 mmol/L (3.5-5.1); Sodium 140 mmol/L (137-145)
[2023-07-27] MEDS: APIXABAN 5 MG TAB PO SCH ×2 (08:47→20:31)
[2023-07-27] MEDS: TAMSULOSIN 0.4 MG CAP.ER.24H PO SCH (08:47)
[2023-07-27] MEDS: FUROSEMIDE 40 MG TAB PO SCH (08:47)
[2023-07-27] MEDS: FLUoxetine HCL 20 MG CAP PO SCH (08:47)
[2023-07-27] MEDS: carvediloL 12.5 MG TAB PO SCH ×2 (08:47→20:31)
[2023-07-27] MEDS: SILVER sulfADIAZINE Cream 400 GM 1 APPLIC APPLIC TOPICAL SCH (08:48)
[2023-07-27] MEDS ORDERED: PATIENT'S OWN (Semaglutide [Ozempic] 0.25 MG/0.368 ML Pen.Injctr) SQ SCH (09:00)
[2023-07-27 12:03] LABS: Glucose,Whole Blood 130 mg/dL (70-110)
--- NOTE | 2023-07-27 16:10 | P.PN ---
Subjective Progress Note Date: 07/27/23 Principal diagnosis: Reason for follow-up is right lower extremity cellulitis. Patient is a 68-year-old male with a past medical his significant for atrial fibrillation diabetes mellitus hypertension hyperlipidemia patient did have a history of right lower extremity venous stasis ulcer and recurrent cellulitis and has previously grown MRSA patient presented to the ER for evaluation of increasing swelling redness to the right lower extremity, patient has been diagnosed with a cellulitis admit to the hospital. On today's evaluation that is 07/27/2023 the patient denies having any fever or any chills, the patient is breathing comfortably on room air patient denies having any chest pain shortness of breath or cough no nausea vomiting no abdominal pain no diarrhea with antibiotic therapy , Patient denies pain to right lower extremity swelling redness has decreased Patient did have white count of 8.0, creatinine 1.04 Objective - Vital Signs Vital signs: Vital Signs Temp 98.1 F 07/27/23 12:03 Pulse 55 L 07/27/23 12:03 Resp 18 07/27/23 12:03 BP 152/71 07/27/23 12:03 Pulse Ox 95 07/27/23 12:03 FiO2 Intake & Output 07/26/23 07/27/23 07/27/23 18:59 06:59 18:59 Intake Total 360 Balance 360 Intake: Oral 360 Other: Voiding Method Toilet # Voids 5 3 # Bowel Movements 1 - Exam GENERAL DESCRIPTION: An elderly male lying in bed in no distress RESPIRATORY SYSTEM: Unlabored breathing , decreased breath sounds at bases HEART: S1 S2 regular rate and rhythm , ABDOMEN: Soft , no tenderness EXTREMITIES: Right lower extremity is currently wrapped in Andrea wrap no drainage on the dressing - Labs CBC & Chem 7: 07/27/23 06:55 07/27/23 06:55 Labs: Abnormal Lab Results - Last 24 Hours (Table) 07/26/23 07/26/23 07/27/23 Range/Units 17:44 20:26 06:55 RBC (4.30-5.90) m/uL Hgb (13.0-17.5) gm/dL Hct (39.0-53.0) % RDW (11.5-15.5) % BUN 26 H (9-20) mg/dL Glucose 113 H (74-99) mg/dL POC Glucose (mg/dL) 225 H 220 H (70-110) mg/dL Calcium 8.2 L (8.4-10.2) mg/dL 07/27/23 07/27/23 07/27/23 Range/Units 06:55 07:01 12:01 RBC 4.06 L (4.30-5.90) m/uL Hgb 12.1 L (13.0-17.5) gm/dL Hct 36.9 L (39.0-53.0) % RDW 16.2 H (11.5-15.5) % BUN (9-20) mg/dL Glucose (74-99) mg/dL POC Glucose (mg/dL) 111 H 130 H (70-110) mg/dL Calcium (8.4-10.2) mg/dL Microbiology - Last 24 Hours (Table) 07/26/23 11:00 Gram Stain - Preliminary Leg - Right 07/24/23 14:51 Blood Culture - Preliminary Blood 07/24/23 14:51 Blood Culture - Preliminary Blood 07/25/23 18:16 Gram Stain - Preliminary Leg - Right Assessment and Plan (1) Cellulitis of right leg Current Visit: No Status: Acute Code(s): L03.115 - CELLULITIS OF RIGHT LOWER LIMB SNOMED Code(s): 78648949830220065 Plan: 1patient was in the hospital with increasing pain swelling redness of the right lower extremity this patient noted to have a history of venous stasis ulcer and recently did have a vein stripping procedure and the previous culture positive for MRSA concerning for cellulitis likely from gram-positive skin deniz 2patient to continue with Andrea wrap to the leg to keep the swelling down 3Patient to continue vancomycin while waiting for the culture to finalize and monitor his clinical course closely Dictation was produced using [employer] dictation software. please excuse any grammatical, word or spelling errors.
[2023-07-27 17:03] LABS: Glucose,Whole Blood 135 mg/dL (70-110)
--- NOTE | 2023-07-27 17:45 | P.PN ---
Progress Note - Text Progress Note Date: 07/27/23 Chief Complaint: Right leg swelling and redness Hospital course: Patient is a 68-year-old male with a past medical history significant for diabetes mellitus hypertension hyperlipidemia sleep apnea atrial fibrillation with multiple admissions the past for right leg cellulitis, About 3 weeks ago patient had the right great saphenous venous radiofrequency ablation ultrasound and post-laser great saphenous vein is occluded this was done by Dr. Olga Rodriguez from vascular. Patient now presents with increasing redness and swelling of that leg. No fever no chills. Breakdown of skin on the lateral side of the right lower leg. With some pus. Some pain. 07/26/2023: Diet dressing in the right leg. No fever no chills. Tolerating diet. Being followed by ID and vascular. On IV vancomycin. 07/27/2023: Dressing over the leg. Being followed by vascular 90. Cultures pending. IV vancomycin. Oral intake good. Active Medications Acetaminophen (Acetaminophen Tab 325 Mg Tab) 650 mg PO Q6HR PRN PRN Reason: Mild Pain or Fever > 100.5 Alprazolam (Alprazolam 0.25 Mg Tab) 0.25 mg PO Q6HR PRN PRN Reason: Anxiety Apixaban (Apixaban 5 Mg Tab) 5 mg PO BID [facility]; Protocol Last Admin: 07/27/23 08:47 Dose: 5 mg Atorvastatin Calcium (Atorvastatin 10 Mg Tab) 10 mg PO HS [facility] Last Admin: 07/26/23 20:25 Dose: 10 mg Calcium Carbonate/Glycine (Calcium Carbonate 500 Mg Chewable) 1,000 mg PO Q4HR PRN PRN Reason: Dyspepsia Carvedilol (Carvedilol 12.5 Mg Tab) 12.5 mg PO Q12HR [facility] Last Admin: 07/27/23 08:47 Dose: 12.5 mg Dextrose/Water (Dextrose 50% Syringe 50 Ml) 25 ml IVP PER PROTOCOL PRN; Protocol PRN Reason: Hypoglycemia Dextrose/Water (Dextrose 50% Syringe 50 Ml) 50 ml IVP PER PROTOCOL PRN; Protocol PRN Reason: Hypoglycemia Fluoxetine HCl (Fluoxetine Hcl 20 Mg Cap) 40 mg PO DAILY [facility] Last Admin: 07/27/23 08:47 Dose: 40 mg Furosemide (Furosemide 40 Mg Tab) 40 mg PO DAILY [facility] Last Admin: 07/27/23 08:47 Dose: 40 mg Sodium Chloride (Saline 0.9%) 1,000 mls @ 10 mls/hr IV .Q24H [facility] Last Admin: 07/26/23 20:26 Dose: 10 mls/hr Vancomycin HCl 1,750 mg/ (Sodium Chloride) 500 mls @ 167 mls/hr IVPB Q16H [facility] Insulin Aspart (Insulin Aspart (Novolog) 100 Unit/Ml Vial) 0 unit SQ AC-TID [facility]; Protocol Last Admin: 07/27/23 12:11 Dose: Not Given Insulin Detemir (Insulin Detemir (Levemir) 100 Unit/Ml Syr) 24 unit SQ HS [facility] Last Admin: 07/26/23 20:25 Dose: 24 unit Lactulose (Lactulose 20 Gm/30 Ml Cup) 20 gm PO DAILY PRN PRN Reason: Constipation Miscellaneous Information (Vancomycin Iv Per Pharmacy 1 Each Misc) 1 each [facility] DIRECTED PRN; Protocol PRN Reason: Per Protocol Naloxone HCl (Naloxone 0.4 Mg/Ml 1 Ml Vial) 0.2 mg IV Q2M PRN PRN Reason: Opioid Reversal Patient's Own ( Semaglutide [Ozempic ] 0.25 Mg/0.368 Ml Pen.Injctr) 0.25 mg SQ NEVAREZ [facility] Last Admin: 07/27/23 08:47 Dose: Not Given Testosterone [ Androgel] 1.62% Gel Packet 1.25 Gm/Pkt 2 packet TOPICAL HS [facility] Last Admin: 07/26/23 22:48 Dose: 2 packet Ondansetron HCl (Ondansetron 4 Mg/2 Ml Vial) 4 mg IVP Q8HR PRN PRN Reason: Nausea And Vomiting Silver Sulfadiazine (Silver Sulfadiazine Cream 400 Gm 1 Applic Applic) 1 applic TOPICAL DAILY [facility]; Protocol Last Admin: 07/27/23 08:48 Dose: 1 applic Tamsulosin HCl (Tamsulosin 0.4 Mg Cap.Er.24h) 0.4 mg PO DAILY [facility] Last Admin: 07/27/23 08:47 Dose: 0.4 mg Temazepam (Temazepam 15 Mg Cap) 15 mg PO HS PRN PRN Reason: Insomnia Past medical history to include: Atrial fibrillation, diabetes, hypertension, hyperlipidemia, obstructive sleep apnea, basal cell carcinoma, depression, recurrent right leg cellulitis Social history: Lives alone. Does get home nurse and physical therapy. Denies smoking, alcohol. Physical examination: VITAL SIGNS: 97.8, 59, 19, 1 59 x 76, 96% room air GENERAL: BMI 36.9, sitting at edge of the bed comfortable EYES: Pupils equal. Conjunctiva normal. HEENT: External appearance of nose and ears normal, oral cavity grossly normal. NECK: JVD not raised; masses not palpable. HEART: First and second heart sounds are normal; edema present LUNGS: Respiratory rate normal; clear to auscultation. ABDOMEN: Soft, distended, nontender, liver spleen not palpable, no masses palpable. PSYCH: Alert and oriented x3; mood and affect normal. MUSCULOSKELETAL:No Clubbing/cyanosis;muscles-grossly intact EXTREMITIES: Right lower extremity: In a dressing INVESTIGATIONS, reviewed in the clinical context: 07/24/2023: White count 10.2 hemoglobin 12.4 platelets 219 potassium 4.9 BUN 40 creatinine 0.86 CRP 2.4 Venous Doppler right leg: Negative for DVT Assessment and plan: -Acute on chronic recurrent right lower extremity cellulitis, with venous ulcer . Patient recently had radiofrequency ablation of the vein by Dr. Olga Rodriguez. IV vancomycin. Local wound care per vascular and ID. Silvadene cream with compression wrap and elevation -Chronic gait dysfunction. Multiple medical problems. Uses walker at baseline -Paroxysmal atrial fibrillation currently normal sinus rhythm Coreg. Eliquis -Diabetes mellitus type 2 , chronically on insulin Follow Accu-Cheks -Secondary moderate pulmonary hypertension -Severe aortic stenosis: Does follow with cardiology -Essential Hypertension Coreg to 12.5 by mouth twice a day. -Hyperlipidemia Lipitor 10 mg daily - obesity with BMI of 36.9 Weight loss measures -Obstructive sleep apnea and does not use CPAP as he cannot tolerate the mask -Depression Prozac. -BPH Flomax -no code Pending culture. Follow with ID and vascular. Past Medical History Past Medical History: Atrial Fibrillation, Cancer, Diabetes Mellitus, Hyperlipidemia, Hypertension, Sleep Apnea/CPAP/BIPAP Additional Past Medical History / Comment(s): Basal cell carcinoma, Heart murmur History of Any Multi-Drug Resistant Organisms: MRSA Date of last positivie culture/infection: 02/24/23 MDRO Source:: Right Leg Past Surgical History: No Surgical Hx Reported Additional Past Surgical History / Comment(s): Cataract surgery right eye, RLE vein stripping Past Anesthesia/Blood Transfusion Reactions: No Reported Reaction Past Psychological History: Depression Smoking Status: Never smoker Past Alcohol Use History: None Reported Past Drug Use History: None Reported
[2023-07-27 20:15] LABS: Glucose,Whole Blood 174 mg/dL (70-110)
[2023-07-27] MEDS: ATORVASTATIN 10 MG TAB PO SCH (20:31)
[2023-07-27] MEDS: SODIUM CHLORIDE 0.9% 1,000 ML IV SCH (20:32)
[2023-07-27] MEDS: INSULIN DETEMIR (LEVEMIR) 100 UNIT/ML SYR SQ SCH (21:58)
[2023-07-27] MEDS: TESTOSTERONE 1.62% TOPICAL SCH (22:40)
[2023-07-27] MEDS: VANCOMYCIN 1,750 MG in SODIUM CHLORIDE 0.9% 500 ML 500 ML IVPB SCH (22:40)
[2023-07-28 06:10] LABS: Glucose,Whole Blood 121 mg/dL (70-110)
[2023-07-28] MEDS: INSULIN ASPART (NovoLOG) 100 UNIT/ML VIAL SQ SCH ×3 (06:14→17:34)
[2023-07-28 06:26] LABS: African American GFR (CKD) >90 (>60 ml/min/1.73 sqM); Non-African American GFR(CKD) 85 (>60 ml/min/1.73 sqM)
[2023-07-28] MEDS: APIXABAN 5 MG TAB PO SCH ×2 (08:15→21:16)
[2023-07-28] MEDS: FUROSEMIDE 40 MG TAB PO SCH (08:15)
[2023-07-28] MEDS: TAMSULOSIN 0.4 MG CAP.ER.24H PO SCH (08:15)
[2023-07-28] MEDS: SILVER sulfADIAZINE Cream 400 GM 1 APPLIC APPLIC TOPICAL SCH (08:16)
[2023-07-28] MEDS: carvediloL 12.5 MG TAB PO SCH ×2 (08:16→21:16)
[2023-07-28] MEDS: FLUoxetine HCL 20 MG CAP PO SCH (08:16)
[2023-07-28 12:22] LABS: Glucose,Whole Blood 203 mg/dL (70-110)
[2023-07-28] MEDS: VANCOMYCIN 1,750 MG in SODIUM CHLORIDE 0.9% 500 ML 500 ML IVPB SCH (13:33)
--- NOTE | 2023-07-28 14:24 | P.PN ---
Subjective Progress Note Date: 07/28/23 Principal diagnosis: Reason for follow-up is right lower extremity cellulitis. Patient is a 68-year-old male with a past medical his significant for atrial fibrillation diabetes mellitus hypertension hyperlipidemia patient did have a history of right lower extremity venous stasis ulcer and recurrent cellulitis and has previously grown MRSA patient presented to the ER for evaluation of increasing swelling redness to the right lower extremity, patient has been diagnosed with a cellulitis admit to the hospital. On today's evaluation that is 07/28/2023 the patient continues to be afebrile, the patient is breathing comfortably on room air without need for supplemental oxygen patient denies having any chest pain shortness of breath or cough no nausea vomiting abdominal pain diarrhea patient right lower extremity swelling and redness has improved denies pain to the right lower extremity . Patient did have a creatinine 0.91 blood culture with Staphylococcus saprophy ticus Objective - Vital Signs Vital signs: Vital Signs Temp 98.1 F 07/28/23 08:00 Pulse 65 07/28/23 08:00 Resp 16 07/28/23 08:00 BP 171/65 07/28/23 08:00 Pulse Ox 97 07/28/23 08:00 FiO2 Intake & Output 07/27/23 07/28/23 07/28/23 18:59 06:59 18:59 Other: Voiding Method Toilet Toilet # Voids 2 3 - Exam GENERAL DESCRIPTION: An elderly male lying in bed in no distress RESPIRATORY SYSTEM: Unlabored breathing , decreased breath sounds at bases HEART: S1 S2 regular rate and rhythm , ABDOMEN: Soft , no tenderness EXTREMITIES: Right lower extremity swelling redness has improved no open wound or any drainage - Labs CBC & Chem 7: 07/27/23 06:55 07/28/23 05:21 Labs: Abnormal Lab Results - Last 24 Hours (Table) 07/27/23 07/27/23 07/28/23 Range/Units 17:02 20:14 06:06 POC Glucose (mg/dL) 135 H 174 H 121 H (70-110) mg/dL 07/28/23 Range/Units 12:21 POC Glucose (mg/dL) 203 H (70-110) mg/dL Microbiology - Last 24 Hours (Table) 07/25/23 18:16 Gram Stain - Final Leg - Right Wound Culture - Final Staphylococcus saprophyticus 07/24/23 14:51 Blood Culture - Preliminary Blood 07/24/23 14:51 Blood Culture - Preliminary Blood Assessment and Plan (1) Cellulitis of right leg Current Visit: No Status: Acute Code(s): L03.115 - CELLULITIS OF RIGHT LOWER LIMB SNOMED Code(s): 20503076752568237 Plan: 1patient was in the hospital with increasing pain swelling redness of the right lower extremity this patient noted to have a history of venous stasis ulcer and recently did have a vein stripping procedure and the previous culture positive for MRSA concerning for cellulitis likely from gram-positive skin deniz 2patient right lower extremity swelling redness has improved local culture with Staphylococcus saprophyticus more likely skin deniz, with no MRSA we will discontinue vancomycin start the patient on cefazolin 2 g every 8 hours finishing therapy with oral Keflex Dictation was produced using [employer] dictation software. please excuse any grammatical, word or spelling errors. Time with Patient: Less than 30
[2023-07-28 17:10] LABS: Glucose,Whole Blood 143 mg/dL (70-110)
--- NOTE | 2023-07-28 19:04 | P.PN ---
Progress Note - Text Progress Note Date: 07/28/23 Chief Complaint: Right leg swelling and redness Hospital course: Patient is a 68-year-old male with a past medical history significant for diabetes mellitus hypertension hyperlipidemia sleep apnea atrial fibrillation with multiple admissions the past for right leg cellulitis, About 3 weeks ago patient had the right great saphenous venous radiofrequency ablation ultrasound and post-laser great saphenous vein is occluded this was done by Dr. Olga Rodriguez from vascular. Patient now presents with increasing redness and swelling of that leg. No fever no chills. Breakdown of skin on the lateral side of the right lower leg. With some pus. Some pain. 07/26/2023: Diet dressing in the right leg. No fever no chills. Tolerating diet. Being followed by ID and vascular. On IV vancomycin. 07/27/2023: Dressing over the leg. Being followed by vascular 90. Cultures pending. IV vancomycin. Oral intake good. 07/28/2023. Swelling redness right leg quite improved. Patient came to stay one more day. Plan to discharge tomorrow if okay with ID and vascular. Active Medications Acetaminophen (Acetaminophen Tab 325 Mg Tab) 650 mg PO Q6HR PRN PRN Reason: Mild Pain or Fever > 100.5 Alprazolam (Alprazolam 0.25 Mg Tab) 0.25 mg PO Q6HR PRN PRN Reason: Anxiety Apixaban (Apixaban 5 Mg Tab) 5 mg PO BID [facility]; Protocol Last Admin: 07/28/23 08:15 Dose: 5 mg Atorvastatin Calcium (Atorvastatin 10 Mg Tab) 10 mg PO HS [facility] Last Admin: 07/27/23 20:31 Dose: 10 mg Calcium Carbonate/Glycine (Calcium Carbonate 500 Mg Chewable) 1,000 mg PO Q4HR PRN PRN Reason: Dyspepsia Carvedilol (Carvedilol 12.5 Mg Tab) 12.5 mg PO Q12HR [facility] Last Admin: 07/28/23 08:16 Dose: 12.5 mg Dextrose/Water (Dextrose 50% Syringe 50 Ml) 25 ml IVP PER PROTOCOL PRN; Protocol PRN Reason: Hypoglycemia Dextrose/Water (Dextrose 50% Syringe 50 Ml) 50 ml IVP PER PROTOCOL PRN; Protocol PRN Reason: Hypoglycemia Fluoxetine HCl (Fluoxetine Hcl 20 Mg Cap) 40 mg PO DAILY [facility] Last Admin: 07/28/23 08:16 Dose: 40 mg Furosemide (Furosemide 40 Mg Tab) 40 mg PO DAILY [facility] Last Admin: 07/28/23 08:15 Dose: 40 mg Sodium Chloride (Saline 0.9%) 1,000 mls @ 10 mls/hr IV .Q24H [facility] Last Admin: 07/27/23 20:32 Dose: 10 mls/hr Cefazolin Sodium 2 gm/ Sodium (Chloride) 50 mls @ 100 mls/hr IVPB Q8HR [facility]; Protocol Last Admin: 07/28/23 16:36 Dose: 100 mls/hr Insulin Aspart (Insulin Aspart (Novolog) 100 Unit/Ml Vial) 0 unit SQ AC-TID [facility]; Protocol Last Admin: 07/28/23 17:34 Dose: Not Given Insulin Detemir (Insulin Detemir (Levemir) 100 Unit/Ml Syr) 24 unit SQ HS [facility] Last Admin: 07/27/23 21:58 Dose: 24 unit Lactulose (Lactulose 20 Gm/30 Ml Cup) 20 gm PO DAILY PRN PRN Reason: Constipation Naloxone HCl (Naloxone 0.4 Mg/Ml 1 Ml Vial) 0.2 mg IV Q2M PRN PRN Reason: Opioid Reversal Patient's Own ( Semaglutide [Ozempic ] 0.25 Mg/0.368 Ml Pen.Injctr) 0.25 mg SQ NEVAREZ [facility] Last Admin: 07/27/23 08:47 Dose: Not Given Testosterone [ Androgel] 1.62% Gel Packet 1.25 Gm/Pkt 2 packet TOPICAL HS [facility] Last Admin: 07/27/23 22:40 Dose: 2 packet Ondansetron HCl (Ondansetron 4 Mg/2 Ml Vial) 4 mg IVP Q8HR PRN PRN Reason: Nausea And Vomiting Silver Sulfadiazine (Silver Sulfadiazine Cream 400 Gm 1 Applic Applic) 1 applic TOPICAL DAILY [facility]; Protocol Last Admin: 07/28/23 08:16 Dose: 1 applic Tamsulosin HCl (Tamsulosin 0.4 Mg Cap.Er.24h) 0.4 mg PO DAILY [facility] Last Admin: 07/28/23 08:15 Dose: 0.4 mg Temazepam (Temazepam 15 Mg Cap) 15 mg PO HS PRN PRN Reason: Insomnia Past medical history to include: Atrial fibrillation, diabetes, hypertension, hyperlipidemia, obstructive sleep apnea, basal cell carcinoma, depression, recurrent right leg cellulitis Social history: Lives alone. Does get home nurse and physical therapy. Denies smoking, alcohol. Physical examination: VITAL SIGNS: 97.8, 64, 16, 131/68, 97% room air GENERAL: Sitting up, comfortable EYES: Pupils equal. Conjunctiva normal. HEENT: External appearance of nose and ears normal, oral cavity grossly normal. NECK: JVD not raised; masses not palpable. HEART: First and second heart sounds are normal; edema present LUNGS: Respiratory rate normal; clear to auscultation. ABDOMEN: Soft, distended, nontender, liver spleen not palpable, no masses palpa ble. PSYCH: Alert and oriented x3; mood and affect normal. MUSCULOSKELETAL:No Clubbing/cyanosis;muscles-grossly intact EXTREMITIES: Right lower extremity: Redness and swelling, significantly improved INVESTIGATIONS, reviewed in the clinical context: Wound culture: Staphylococcus saprophyticus 07/24/2023: White count 10.2 hemoglobin 12.4 platelets 219 potassium 4.9 BUN 40 creatinine 0.86 CRP 2.4 Venous Doppler right leg: Negative for DVT Assessment and plan: -Acute on chronic recurrent right lower extremity cellulitis, with venous ulcer . Patient recently had radiofrequency ablation of the vein by Dr. Olga Rodriguez.: Improving IV vancomycin. Local wound care per vascular and ID. wound culture- Staphylococcus saprophyticus Silvadene cream with compression wrap and elevation -Chronic gait dysfunction. Multiple medical problems. Uses walker at baseline -Paroxysmal atrial fibrillation currently normal sinus rhythm Coreg. Eliquis -Diabetes mellitus type 2 , chronically on insulin Follow Accu-Cheks -Secondary moderate pulmonary hypertension -Severe aortic stenosis: Does follow with cardiology -Essential Hypertension Coreg to 12.5 by mouth twice a day. -Hyperlipidemia Lipitor 10 mg daily - obesity with BMI of 36.9 Weight loss measures -Obstructive sleep apnea and does not use CPAP as he cannot tolerate the mask -Depression Prozac. -BPH Flomax -no code Planning for discharge tomorrow. Past Medical History Past Medical History: Atrial Fibrillation, Cancer, Diabetes Mellitus, Hyperlipidemia, Hypertension, Sleep Apnea/CPAP/BIPAP Additional Past Medical History / Comment(s): Basal cell carcinoma, Heart murmur History of Any Multi-Drug Resistant Organisms: MRSA Date of last positivie culture/infection: 02/24/23 MDRO Source:: Right Leg Past Surgical History: No Surgical Hx Reported Additional Past Surgical History / Comment(s): Cataract surgery right eye, RLE vein stripping Past Anesthesia/Blood Transfusion Reactions: No Reported Reaction Past Psychological History: Depression Smoking Status: Never smoker Past Alcohol Use History: None Reported Past Drug Use History: None Reported
[2023-07-28] MEDS: ATORVASTATIN 10 MG TAB PO SCH (21:16)
[2023-07-28] MEDS: TESTOSTERONE 1.62% TOPICAL SCH (21:16)
[2023-07-28] MEDS: SODIUM CHLORIDE 0.9% 1,000 ML IV SCH (21:16)
[2023-07-28 21:44] LABS: Glucose,Whole Blood 169 mg/dL (70-110)
[2023-07-28] MEDS: INSULIN DETEMIR (LEVEMIR) 100 UNIT/ML SYR SQ SCH (23:06)
[2023-07-29 06:08] LABS: Glucose,Whole Blood 133 mg/dL (70-110)
[2023-07-29] MEDS: INSULIN ASPART (NovoLOG) 100 UNIT/ML VIAL SQ SCH ×2 (06:13→13:21)
[2023-07-29 07:48] VITALS: BP 166/66; PULSE 61; RESP 16; TEMP 97.6
[2023-07-29] MEDS: SILVER sulfADIAZINE Cream 400 GM 1 APPLIC APPLIC TOPICAL SCH (09:13)
[2023-07-29] MEDS: FLUoxetine HCL 20 MG CAP PO SCH (09:13)
[2023-07-29] MEDS: APIXABAN 5 MG TAB PO SCH (09:13)
[2023-07-29] MEDS: carvediloL 12.5 MG TAB PO SCH (09:13)
[2023-07-29] MEDS: TAMSULOSIN 0.4 MG CAP.ER.24H PO SCH (09:13)
[2023-07-29] MEDS: FUROSEMIDE 40 MG TAB PO SCH (09:13)
[2023-07-29 12:11] LABS: Glucose,Whole Blood 178 mg/dL (70-110)
--- NOTE | 2023-07-29 14:15 | P.PN ---
Subjective Progress Note Date: 07/29/23 Principal diagnosis: Reason for follow-up is right lower extremity cellulitis. Patient is a 68-year-old male with a past medical his significant for atrial fibrillation diabetes mellitus hypertension hyperlipidemia patient did have a history of right lower extremity venous stasis ulcer and recurrent cellulitis and has previously grown MRSA patient presented to the ER for evaluation of increasing swelling redness to the right lower extremity, patient has been diagnosed with a cellulitis admit to the hospital. On today's evaluation that is 07/29/2023, the patient remains to be afebrile the patient is breathing comfortably on room air denies any chest pain shortness of breath or cough no nausea vomiting no abdominal pain no diarrhea and denies pain to the right lower extremity. Patient white count normal 8.0 as of 07/27/2023 no lab draw was done today,local culture with Staphylococcus saprophyticus Objective - Vital Signs Vital signs: Vital Signs Temp 97.6 F 07/29/23 07:40 Pulse 61 07/29/23 07:40 Resp 16 07/29/23 07:40 BP 166/66 07/29/23 07:40 Pulse Ox 96 07/29/23 07:40 FiO2 Intake & Output 07/28/23 07/29/23 07/29/23 18:59 06:59 18:59 Other: Voiding Method Toilet # Voids 6 3 - Exam GENERAL DESCRIPTION: An elderly male lying in bed in no distress RESPIRATORY SYSTEM: Unlabored breathing , decreased breath sounds at bases HEART: S1 S2 regular rate and rhythm , ABDOMEN: Soft , no tenderness EXTREMITIES: Right lower extremity swelling redness has improved no open wound or any drainage - Labs CBC & Chem 7: 07/27/23 06:55 07/28/23 05:21 Labs: Abnormal Lab Results - Last 24 Hours (Table) 07/28/23 07/28/23 07/29/23 Range/Units 17:09 21:42 06:07 POC Glucose (mg/dL) 143 H 169 H 133 H (70-110) mg/dL 07/29/23 Range/Units 12:10 POC Glucose (mg/dL) 178 H (70-110) mg/dL Microbiology - Last 24 Hours (Table) 07/26/23 11:00 Gram Stain - Final Leg - Right Wound Culture - Final Assessment and Plan (1) Cellulitis of right leg Current Visit: No Status: Acute Code(s): L03.115 - CELLULITIS OF RIGHT LOWER LIMB SNOMED Code(s): 96188715043201128 Plan: 1patient was in the hospital with increasing pain swelling redness of the right lower extremity this patient noted to have a history of venous stasis ulcer and recently did have a vein stripping procedure and the previous culture positive for MRSA concerning for cellulitis likely from gram-positive skin deniz 2patient with right lower extremity cellulitis overall improvement we will finish therapy with oral Keflex prescription sent to the pharmacy advised to continue with the Andrea wrap or compression dressing to keep the swelling down to prevent recurrent cellulitis Dictation was produced using [employer] dictation software. please excuse any gram matical, word or spelling errors. Time with Patient: Less than 30
--- NOTE | 2023-07-29 15:16 | CDI ---
Documentation Clarification Form Date: 07/29/2023 12:00:00 AM From: Ayo Newberry Phone: Admit Date: 07/25/2023 08:15:00 PM Patient Name: Lex Maldonado Visit Number: [id number] Discharge Date: ATTENTION: The Clinical Documentation Specialists (CDI) and [facility] Coding Staff appreciate your assistance in clarifying documentation. Please respond to the clarification below the line at the bottom and electronically sign. The CDI & [facility] Coding staff will review the response and follow-up if needed. Please note: Queries are made part of the Legal Health Record. If you have any questions, please contact the author of this message via ITS. Dr. Catalino Banks There is documentation of Right leg cellulitis in a patient with Type 2 Diabetes Mellitus. Additional clarification is requested regarding any link between the two diagnoses. History/Risk Factors: 68-year-old male with a past medical history significant for diabetes mellitus hypertension hyperlipidemia sleep apnea atrial fibrillation with multiple admissions the past for right leg cellulitis. Clinical Indicators: 07/25 H&P: Acute on chronic recurrent right lower extremity cellulitis, with venous ulcer. Patient recently had radiofrequency ablation of the vein by Dr. Olga Rodriguez. IV vancomycin. Local wound care per vascular and ID. Silvadene cream with compression wrap and elevation. Diabetes mellitus type 2 , chronically on insulin. Treatment: per 07/25 H&P: Local wound care per vascular and ID. Silvadene cream with compression wrap and elevation, IV Vancomycin., Keflex PO. Can you please clarify if the Cellulitis and Diabetes are related, if known? [ + ] Yes, Cellulitis and Diabetes are related [ ] No, Cellulitis and Diabetes are not related [ ] Other, please specify [ ] Unable to determine (Template Last Revised: September 2020) MTDD
--- NOTE | 2023-07-29 21:20 | P.DS ---
Providers Date of admission: 07/25/23 20:15 Expected date of discharge: 07/29/23 Attending physician: Catalino Banks Consults: 07/24/23 21:19 Consult Physician Urgent Consulting Provider: Hakan Gamez Consult Reason/Comments: recent vein stripping, cellulitis Do you want consulting provider notified?: Yes, Notify in am 07/25/23 16:04 Consult Physician Routine Consulting Provider: Ander Bella Consult Reason/Comments: abx,rt leg cellulitis Do you want consulting provider notified?: Yes Primary care physician: Emmie Posadas [facility] Course: Chief Complaint: Right leg swelling and redness Hospital course: Patient is a 68-year-old male with a past medical history significant for diabetes mellitus hypertension hyperlipidemia sleep apnea atrial fibrillation with multiple admissions the past for right leg cellulitis, About 3 weeks ago patient had the right great saphenous venous radiofrequency ablation ultrasound and post-laser great saphenous vein is occluded this was done by Dr. Olga Rodriguez from vascular. Patient now presents with increasing redness and swelling of that leg. No fever no chills. Breakdown of skin on the lateral side of the right lower leg. With some pus. Some pain. 07/26/2023: Diet dressing in the right leg. No fever no chills. Tolerating diet. Being followed by ID and vascular. On IV vancomycin. 07/27/2023: Dressing over the leg. Being followed by vascular 90. Cultures pending. IV vancomycin. Oral intake good. 07/28/2023. Swelling redness right leg quite improved. Patient came to stay one more day. Plan to discharge tomorrow if okay with ID and vascular. 07/29/2023: The much better. Redness swelling is gone down. [place] discharge in 7 days of Keflex. Patient follow-up with Dr. Rodriguez from vascular. Past medical history to include: Atrial fibrillation, diabetes, hypertension, hyperlipidemia, obstructive sleep apnea, basal cell carcinoma, depression, recurrent right leg cellulitis Social history: Lives alone. Does get home nurse and physical therapy. Denies smoking, alcohol. Physical examination: VITAL SIGNS: 97.6, 61, 16, 166/66, 96% room air GENERAL: Sitting up, comfortable EYES: Pupils equal. Conjunctiva normal. HEENT: External appearance of nose and ears normal, oral cavity grossly normal. NECK: JVD not raised; masses not palpable. HEART: First and second heart sounds are normal; edema present LUNGS: Respiratory rate normal; clear to auscultation. ABDOMEN: Soft, distended, nontender, liver spleen not palpable, no masses palpable. PSYCH: Alert and oriented x3; mood and affect normal. MUSCULOSKELETAL:No Clubbing/cyanosis;muscles-grossly intact EXTREMITIES: Right lower extremity: Redness and swelling, significantly improved INVESTIGATIONS, reviewed in the clinical context: Wound culture: Staphylococcus saprophyticus 07/24/2023: White count 10.2 hemoglobin 12.4 platelets 219 potassium 4.9 BUN 40 creatinine 0.86 CRP 2.4 Venous Doppler right leg: Negative for DVT Assessment and plan: -Acute on chronic recurrent right lower extremity cellulitis, with venous ulcer . Patient recently had radiofrequency ablation of the vein by Dr. Olga Rodriguez.: Improving IV vancomycin. Local wound care per vascular and ID. wound culture- Staphylococcus saprophyticus Silvadene cream with compression wrap and elevation Discharged on Keflex 5 mg every 6 for 7 days -Chronic gait dysfunction. Multiple medical problems. Uses walker at baseline -Paroxysmal atrial fibrillation currently normal sinus rhythm Coreg. Eliquis -Diabetes mellitus type 2 , chronically on insulin Follow Accu-Cheks -Secondary moderate pulmonary hypertension -Severe aortic stenosis: Does follow with cardiology -Essential Hypertension Coreg to 12.5 by mouth twice a day. -Hyperlipidemia Lipitor 10 mg daily - obesity with BMI of 36.9 Weight loss measures -Obstructive sleep apnea and does not use CPAP as he cannot tolerate the mask -Depression Prozac. -BPH Flomax -no code Disposition: Home Past Medical History Past Medical History: Atrial Fibrillation, Cancer, Diabetes Mellitus, Hyperlipidemia, Hypertension, Sleep Apnea/CPAP/BIPAP Additional Past Medical History / Comment(s): Basal cell carcinoma, Heart murmur History of Any Multi-Drug Resistant Organisms: MRSA Date of last positivie culture/infection: 02/24/23 MDRO Source:: Right Leg Past Surgical History: No Surgical Hx Reported Additional Past Surgical History / Comment(s): Cataract surgery right eye, RLE vein stripping Past Anesthesia/Blood Transfusion Reactions: No Reported Reaction Past Psychological History: Depression Smoking Status: Never smoker Past Alcohol Use History: None Reported Past Drug Use History: None Reported Plan - Discharge Summary Discharge Rx Participant: Yes New Discharge Prescriptions: New Cephalexin [Keflex] 500 mg PO Q6HR 7 Days #28 cap Continue Apixaban [Eliquis] 5 mg PO BID Tamsulosin HCl [Flomax] 0.4 mg PO DAILY Insulin Lispro [humaLOG Kwikpen] See Protocol SQ TID-W/MEALS Insulin Glargine,Hum.rec.anlog [Lantus Solostar Pen] 30 units SQ HS Testosterone [Androgel 1.62% Gel Packet] 2 packet TOPICAL DAILY Potassium Chloride ER [K-Dur 20] 20 meq PO DAILY Furosemide [Lasix] 40 mg PO DAILY Atorvastatin [Lipitor] 10 mg PO HS FLUoxetine HCL [PROzac] 40 mg PO DAILY cap Semaglutide [Ozempic] 0.25 mg SQ NEVAREZ carvediloL [Coreg] 12.5 mg PO Q12H Discharge Medication List Apixaban [Eliquis] 5 mg PO BID 04/11/17 [History] Insulin Glargine,Hum.rec.anlog [Lantus Solostar Pen] 30 units SQ HS 12/12/22 [History] Insulin Lispro [humaLOG Kwikpen] See Protocol SQ TID-W/MEALS 12/12/22 [History] Testosterone [Androgel 1.62% Gel Packet] 2 packet TOPICAL DAILY 12/12/22 [History] Tamsulosin HCl [Flomax] 0.4 mg PO DAILY 01/02/23 [History] Furosemide [Lasix] 40 mg PO DAILY 04/18/23 [History] Potassium Chloride ER [K-Dur 20] 20 meq PO DAILY 04/18/23 [History] Atorvastatin [Lipitor] 10 mg PO HS 05/04/23 [History] FLUoxetine HCL [PROzac] 40 mg PO DAILY cap 05/07/23 [Rx] Semaglutide [Ozempic] 0.25 mg SQ NEVAREZ 07/24/23 [History] carvediloL [Coreg] 12.5 mg PO Q12H 07/24/23 [History] Cephalexin [Keflex] 500 mg PO Q6HR 7 Days #28 cap 07/29/23 [Rx] Follow up Appointment(s)/Referral(s): Emmie Posadas DO [Primary Care Provider] - 08/01/23 11:15 am [facility]STAFF] - 3 Days Hakan Gamez MD [Family Provider] - 08/07/23 1:45 am Activity/Diet/Wound Care/Special Instructions: dc abx per dr bella dressing-silvedene with compression wrap - change daily Discharge Disposition: HOME WITH HOME HEALTH SERVICES
== END 2023-07-29 16:10 | disposition home health service (06) | DRG 638 ==
LOC: EC 11:47 → 5NMEDONC 21:19 → OBSVTOIN 07-25 20:15 → 6NMEDSUR 07-27 16:30
PROVIDERS: ADMIT Hospitalist; ATTEND Hospitalist
DX: E11.628 Type 2 diabetes mellitus with other skin complications (principal); I83.212 Varicose veins of right lower extremity with both ulcer of calf and inflammation; L03.115 Cellulitis of right lower limb; L97.219 Non-pressure chronic ulcer of right calf with unspecified severity; I27.20 Pulmonary hypertension, unspecified; I48.0 Paroxysmal atrial fibrillation; Z79.4 Long term (current) use of insulin; Z66 Do not resuscitate; I10 Essential (primary) hypertension; G47.33 Obstructive sleep apnea (adult) (pediatric); I35.0 Nonrheumatic aortic (valve) stenosis; E78.5 Hyperlipidemia, unspecified; N40.0 Benign prostatic hyperplasia without lower urinary tract symptoms; F32.A Depression, unspecified; F41.9 Anxiety disorder, unspecified; G47.00 Insomnia, unspecified; K59.00 Constipation, unspecified; E66.9 Obesity, unspecified; Z68.36 Body mass index [BMI] 36.0-36.9, adult; R26.9 Unspecified abnormalities of gait and mobility; Z79.01 Long term (current) use of anticoagulants; Z79.85 Long-term (current) use of injectable non-insulin antidiabetic drugs; Z79.890 Hormone replacement therapy; Z79.899 Other long term (current) drug therapy; Z85.828 Personal history of other malignant neoplasm of skin; Z86.14 Personal history of Methicillin resistant Staphylococcus aureus infection; Z88.5 Allergy status to narcotic agent; Z88.0 Allergy status to penicillin; Z88.8 Allergy status to other drugs, medicaments and biological substances
CPT/HCPCS: 36415; 80048; 80053; 80202; 81003; 82565; 85025; 85652; 86140; 87040; 87070; 87075; 87205; 96361; 96365; 96366; 99285

== ENCOUNTER 2024-06-07 16:44 | Observation (INO) | payer MEDICARE ==
--- NOTE | 2024-06-07 17:34 | ED ---
General Adult HPI - General Source: patient Mode of arrival: EMS Limitations: no limitations <Marlene Yu - Last Filed: 06/07/24 17:33> <Antonio Elliott - Last Filed: 06/07/24 22:25> - General Chief complaint: Weakness Stated complaint: L leg pain Time Seen by Provider: 06/07/24 17:33 - History of Present Illness Initial comments: 69-year-old male presenting with chief complaint of leg weakness. Patient is having weakness to the bilateral legs, he is having pain with weightbearing to the left leg. He denies any injury or trauma. No back pain. No abdominal pain, nausea, vomiting, fevers. (Marlene Yu) 69-year-old male presenting with left leg pain. Patient states he may have injured his leg while working on his lawnmower. He has had both pain and weakness of this leg which is a chronic issue. The weakness has been in both legs and has been present for many months. No fever. (Antonio Elliott) - Related Data Home Medications Medication Instructions Recorded Confirmed Apixaban [Eliquis] 5 mg PO BID 04/11/17 07/24/23 Insulin Glargine,Hum.rec.anlog 30 units SQ HS 12/12/22 07/24/23 [Lantus Solostar Pen] Insulin Lispro [humaLOG Kwikpen] See Protocol SQ TID-W/MEALS 12/12/22 07/24/23 Testosterone [Androgel 1.62% Gel 2 packet TOPICAL DAILY 12/12/22 07/24/23 Packet] Tamsulosin HCl [Flomax] 0.4 mg PO DAILY 01/02/23 07/24/23 Furosemide [Lasix] 40 mg PO DAILY 04/18/23 07/24/23 Potassium Chloride ER [K-Dur 20] 20 meq PO DAILY 04/18/23 07/24/23 Atorvastatin [Lipitor] 10 mg PO HS 05/04/23 07/24/23 Semaglutide [Ozempic] 0.25 mg SQ NEVAREZ 07/24/23 07/24/23 carvediloL [Coreg] 12.5 mg PO Q12H 07/24/23 07/24/23 Previous Rx's Medication Instructions Recorded FLUoxetine HCL [PROzac] 40 mg PO DAILY cap 05/07/23 Cephalexin [Keflex] 500 mg PO Q6HR 7 Days #28 cap 07/29/23 Allergies Allergy/AdvReac Type Severity Reaction Status Date / Time famotidine [From Pepcid] Allergy Unknown Verified 07/24/23 22:31 Penicillins Allergy Rash/Hives Verified 07/24/23 22:31 hydrocodone AdvReac Hallucinati Verified 07/24/23 22:31 ons lisinopril [From Prinivil] AdvReac Cough Verified 07/24/23 22:31 Review of Systems ROS Other: All systems not noted in ROS Statement are negative. <Marlene Yu - Last Filed: 06/07/24 17:33> ROS Other: All systems not noted in ROS Statement are negative. <Antonio Elliott - Last Filed: 06/07/24 22:25> ROS Statement: Those systems with pertinent positive or pertinent negative responses have been documented in the HPI. Past Medical History Past Medical History: Atrial Fibrillation, Cancer, Diabetes Mellitus, Hyperlipidemia, Hypertension, Sleep Apnea/CPAP/BIPAP Additional Past Medical History / Comment(s): Basal cell carcinoma, Heart murmur History of Any Multi-Drug Resistant Organisms: MRSA Date of last positivie culture/infection: 02/24/23 MDRO Source:: Right Leg Past Surgical History: No Surgical Hx Reported Additional Past Surgical History / Comment(s): Cataract surgery right eye, RLE vein stripping Past Anesthesia/Blood Transfusion Reactions: No Reported Reaction Past Psychological History: Depression Smoking Status: Never smoker Past Alcohol Use History: None Reported Past Drug Use History: None Reported - Past Family History Mother Family Medical History: Diabetes Mellitus <Marlene Yu - Last Filed: 06/07/24 17:33> General Exam Limitations: no limitations <Marlene Yu - Last Filed: 06/07/24 17:33> General appearance: alert, in no apparent distress Head exam: Present: atraumatic, normocephalic Eye exam: Present: normal appearance, PERRL ENT exam: Present: normal exam Neck exam: Present: normal inspection. Absent: tenderness, meningismus Respiratory exam: Present: normal lung sounds bilaterally. Absent: respiratory distress, wheezes Cardiovascular Exam: Present: regular rate. Absent: normal rhythm, bradycardia Extremities exam: Present: tenderness, pedal edema, calf tenderness (Left). Absent: full ROM Neurological exam: Present: alert, oriented X3, CN II-XII intact, other (Symmetric strength in the bilateral lower extremities). Absent: motor sensory deficit Psychiatric exam: Present: normal affect, normal mood Skin exam: Present: warm, dry, intact <Antonio Elliott - Last Filed: 06/07/24 22:25> - General Exam Comments Initial Comments: Visual Physical Exam Vital signs reviewed General: Well-appearing, nontoxic, no acute distress. Head: Normocephalic, atraumatic Eyes: PERRLA, EOMI ENT: Airway patent Chest: Nonlabored breathing Skin: No visual rash, normal skin tone Neuro: Alert and oriented 3 Musculoskeletal: No gross abnormalities (Marlene Yu) Course Vital Signs 06/07/24 06/07/24 16:53 19:20 Temperature 98.2 F Pulse Rate 68 69 Respiratory 16 18 Rate Blood Pressure 151/88 131/83 O2 Sat by Pulse 95 97 Oximetry Medical Decision Making <Marlene Yu - Last Filed: 06/07/24 17:33> - Lab Data Result diagrams: 06/07/24 19:10 06/07/24 19:10 <Antonio Elliott - Last Filed: 06/07/24 22:25> - Medical Decision Making I performed the quick note portion of this visit, electronically signed Marlene Yu PA-C (Marlene Yu) Was pt. sent in by a medical professional or institution (PATRICIA Ortega, VOCAL MUSIC TEACHER, urgent care, hospital, or alf...) When possible be specific @ -No Did you speak to anyone other than the patient for history (EMS, parent, family, police, friend...)? What history was obtained from this source @ -No Did you review nursing and triage notes (agree or disagree)? Why? @ -I reviewed and agree with nursing and triage notes Were old charts reviewed (outside hosp., previous admission, EMS record, old E KG, old radiological studies, urgent care reports/EKG's, alf records)? Report findings @ -No old charts were reviewed Differential Diagnosis (chest pain, altered mental status, abdominal pain women, abdominal pain men, vaginal bleeding, weakness, fever, dyspnea, syncope, headache, dizziness, GI bleed, back pain, seizure, CVA, palpatations, mental health, musculoskeletal)? @ -Not applicable EKG interpreted by me (3pts min.). @Sinus rhythm rate of 68, SD interval 186, QRS duration 94, QTc [address] segment elevation X-rays interpreted by me (1pt min.). @ -X-ray of tibia-fibula on the left negative for acute bony abnormality CT interpreted by me (1pt min.). @ -None done U/S interpreted by me (1pt. min.). @Ultrasound negative for DVT What testing was considered but not performed or refused? (CT, X-rays, U/S, labs)? Why? @ -None What meds were considered but not given or refused? Why? @ -None Did you discuss the management of the patient with other professionals (professionals i.e. , PA, VOCAL MUSIC TEACHER, lab, RT, psych nurse, social science manager, hotel front office manager, teacher, hearing officer, showcase trimmer)? Give summary @ -No Was smoking cessation discussed for >3mins.? @ -No Was critical care preformed (if so, how long)? @ -No Were there social determinants of health that impacted care today? How? (Homelessness, low income, unemployed, alcoholism, drug addiction, transportation, low edu. Level, literacy, decrease access to med. care, senior living, rehab)? @ -No Was there de-escalation of care discussed even if they declined (Discuss DNR or withdrawal of care, Hospice)? DNR status @ -No What co-morbidities impacted this encounter? (DM, HTN, Smoking, COPD, CAD, Cancer, CVA, ARF, Chemo, Hep., AIDS, mental health diagnosis, sleep apnea, morbid obesity)? @ -None Was patient admitted / discharged? Hospital course, mention meds given and route, prescriptions, significant lab abnormalities, going to OR and other pertinent info. @ -69-year-old male presenting with left leg pain, bilateral leg weakness and instability which has been ongoing for some time. Patient has normal CBC, normal CMP, negative x-ray and negative ultrasound for DVT. He has trial of ambulation in the emergency department and does have gait instability due to leg weakness. This is bilateral. Patient is unable to climb the stairs at his home to his bedroom. I do feel he would benefit from evaluation by physical therapy. He is admitted with PT on consult. Undiagnosed new problem with uncertain prognosis? @ -No Drug Therapy requiring intensive monitoring for toxicity (Heparin, Nitro, Insulin, Cardizem)? @ -No Were any procedures done? @ -No Diagnosis/symptom? @Leg weakness, gait instability Acute, or Chronic, or Acute on Chronic? @ -Acute on chronic Uncomplicated (without systemic symptoms) or Complicated (systemic symptoms)? @ -Default Side effects of treatment? @ -No Exacerbation, Progression, or Severe Exacerbation? @ -No Poses a threat to life or bodily function? How? (Chest pain, USA, VT, pneumonia, PE, COPD, DKA, ARF, appy, cholecystitis, CVA, Diverticulitis, Homicidal, Suicidal, threat to staff... and all critical care pts) @ -Low risk (Antonio Elliott) - Lab Data Lab Results 06/07/24 06/07/24 06/07/24 Range/Units 19:10 19:10 19:10 WBC 9.7 (3.8-10.6) k/uL RBC 6.01 H (4.30-5.90) m/uL Hgb 17.4 (13.0-17.5) gm/dL Hct 53.4 H (39.0-53.0) % MCV 88.9 (80.0-100.0) fL MCH 29.0 (25.0-35.0) pg MCHC 32.6 (31.0-37.0) g/dL RDW 15.7 H (11.5-15.5) % Plt Count 180 (150-450) k/uL MPV 7.1 Neutrophils % 75 % Lymphocytes % 13 % Monocytes % 7 % Eosinophils % 3 % Basophils % 0 % Neutrophils # 7.3 (1.3-7.7) k/uL Lymphocytes # 1.3 (1.0-4.8) k/uL Monocytes # 0.7 (0-1.0) k/uL Eosinophils # 0.3 (0-0.7) k/uL Basophils # 0.0 (0-0.2) k/uL PT 10.6 (10.0-12.5) sec INR 1.0 (<1.2) APTT 26.0 (22.0-30.0) sec Sodium 141 (137-145) mmol/L Potassium 4.2 (3.5-5.1) mmol/L Chloride 101 (98-107) mmol/L Carbon Dioxide 32 H (22-30) mmol/L Anion Gap 8 mmol/L BUN 56 H (9-20) mg/dL Creatinine 1.25 (0.66-1.25) mg/dL Est GFR (CKD-EPI)AfAm 67 (>60 ml/min/1.73 sqM) Est GFR (CKD-EPI)NonAf 58 (>60 ml/min/1.73 sqM) Glucose 123 H (74-99) mg/dL Plasma Lactic Acid Tho (0.7-2.0) mmol/L Calcium 9.4 (8.4-10.2) mg/dL Magnesium 2.0 (1.6-2.3) mg/dL Total Bilirubin 1.4 H (0.2-1.3) mg/dL AST 25 (17-59) U/L ALT 20 (4-49) U/L Alkaline Phosphatase 84 (38-126) U/L Total Protein 7.2 (6.3-8.2) g/dL Albumin 4.3 (3.5-5.0) g/dL Urine Color Urine Appearance (Clear) Urine pH (5.0-8.0) Ur Specific Grant (1.001-1.035) Urine Protein (Negative) Urine Glucose (UA) (Negative) Urine Ketones (Negative) Urine Blood (Negative) Urine Nitrite (Negative) Urine Bilirubin (Negative) Urine Urobilinogen (<2.0) mg/dL Ur Leukocyte Esterase (Negative) 06/07/24 06/07/24 Range/Units 19:10 20:49 WBC (3.8-10.6) k/uL RBC (4.30-5.90) m/uL Hgb (13.0-17.5) gm/dL Hct (39.0-53.0) % MCV (80.0-100.0) fL MCH (25.0-35.0) pg MCHC (31.0-37.0) g/dL RDW (11.5-15.5) % Plt Count (150-450) k/uL MPV Neutrophils % % Lymphocytes % % Monocytes % % Eosinophils % % Basophils % % Neutrophils # (1.3-7.7) k/uL Lymphocytes # (1.0-4.8) k/uL Monocytes # (0-1.0) k/uL Eosinophils # (0-0.7) k/uL Basophils # (0-0.2) k/uL PT (10.0-12.5) sec INR (<1.2) APTT (22.0-30.0) sec Sodium (137-145) mmol/L Potassium (3.5-5.1) mmol/L Chloride (98-107) mmol/L Carbon Dioxide (22-30) mmol/L Anion Gap mmol/L BUN (9-20) mg/dL Creatinine (0.66-1.25) mg/dL Est GFR (CKD-EPI)AfAm (>60 ml/min/1.73 sqM) Est GFR (CKD-EPI)NonAf (>60 ml/min/1.73 sqM) Glucose (74-99) mg/dL Plasma Lactic Acid Tho 1.4 (0.7-2.0) mmol/L Calcium (8.4-10.2) mg/dL Magnesium (1.6-2.3) mg/dL Total Bilirubin (0.2-1.3) mg/dL AST (17-59) U/L ALT (4-49) U/L Alkaline Phosphatase (38-126) U/L Total Protein (6.3-8.2) g/dL Albumin (3.5-5.0) g/dL Urine Color Colorless Urine Appearance Clear (Clear) Urine pH 5.0 (5.0-8.0) Ur Specific Grant 1.017 (1.001-1.035) Urine Protein Trace H (Negative) Urine Glucose (UA) Negative (Negative) Urine Ketones Negative (Negative) Urine Blood Negative (Negative) Urine Nitrite Negative (Negative) Urine Bilirubin Negative (Negative) Urine Urobilinogen <2.0 (<2.0) mg/dL Ur Leukocyte Esterase Negative (Negative) Disposition <Marlene Yu - Last Filed: 06/07/24 17:33> Is patient prescribed a controlled substance at d/c from ED?: No Time of Disposition: 22:25 <Antonio Elliott - Last Filed: 06/07/24 22:25> Clinical Impression: Weakness, Gait instability Disposition: ADMITTED IP TO THIS HOSP Condition: Stable Referrals: Emmie Posadas DO [Primary Care Provider] - 1-2 days
[2024-06-07 19:21] LABS: Basophils % (A) 0 %; Eosinophils # (A) 0.3 k/uL (0-0.7); Eosinophils % (A) 3 %; HCT 53.4 % (39.0-53.0); HGB 17.4 gm/dL (13.0-17.5); Lymphocytes # (A) 1.3 k/uL (1.0-4.8); Lymphocytes % (A) 13 %; MCHC 32.6 g/dL (31.0-37.0); MCV 88.9 fL (80.0-100.0); Mean Platelet Volume 7.1; Monocytes # (A) 0.7 k/uL (0-1.0); Monocytes % (A) 7 %; Neutrophils # (A) 7.3 k/uL (1.3-7.7); Neutrophils % (A) 75 %; Platelet Count 180 k/uL (150-450); RBC 6.01 m/uL (4.30-5.90); RDW 15.7 % (11.5-15.5); WBC 9.7 k/uL (3.8-10.6)
[2024-06-07 19:34] LABS: Prothrombin Time 10.6 sec (10.0-12.5)
[2024-06-07 19:35] LABS: ALT 20 U/L (4-49); AST 25 U/L (17-59); African American GFR (CKD) 67 (>60 ml/min/1.73 sqM); Albumin 4.3 g/dL (3.5-5.0); Alkaline Phosphatase 84 U/L (38-126); Anion Gap 8 mmol/L; Blood Urea Nitrogen 56 mg/dL (9-20); Calcium 9.4 mg/dL (8.4-10.2); Carbon Dioxide 32 mmol/L (22-30); Chloride 101 mmol/L (98-107); Glucose 123 mg/dL (74-99); Non-African American GFR(CKD) 58 (>60 ml/min/1.73 sqM); Potassium 4.2 mmol/L (3.5-5.1); Sodium 141 mmol/L (137-145); Total Bilirubin 1.4 mg/dL (0.2-1.3); Total Protein 7.2 g/dL (6.3-8.2)
--- NOTE | 2024-06-07 20:45 | US ---
EXAMINATION TYPE: US venous doppler duplex LE LT DATE OF EXAM: 06/07/2024 8:07 PM COMPARISON: 05/04/2023 CLINICAL INDICATION: Male, 69 years old with history of pain/swelling; Pain, swelling, Pain, Swelling TECHNIQUE: The lower extremity deep venous system is examined utilizing real time linear array sonog lenin with graded compression, color doppler sonography, and spectral doppler. SIDE PERFORMED: Left FINDINGS: VESSELS IMAGED: Common Femoral Vein Deep Femoral Vein Greater Saphenous Vein * Femoral Vein Popliteal Vein Small Saphenous Vein * Proximal Calf Veins (* superficial vessels) *limited due to patient body habitus Left Leg: Appears negative for DVT, Color Doppler imaging shows patency of the vessels. Spectral wav eforms are within normal limits. IMPRESSION: 1. Left lower extremity ultrasound negative for deep venous thrombosis [facility], , 06/07/2024 8:42 PM
--- NOTE | 2024-06-07 20:49 | XR ---
EXAMINATION TYPE: XR tibia fibula LT DATE OF EXAM: 06/07/2024 7:38 PM COMPARISON: None. CLINICAL INDICATION: Male, 69 years old with history of pain/swelling, TECHNIQUE: XR tibia fibula LT 2 view(s) obtained. FINDINGS: Ankle mortise appears intact. Mild diffuse soft tissue swelling at the ankle may be present. Minimal degenerative changes are at the joint space. Vascular calcification is noted. Follow up exams can be performed 7-10 days from acute trauma for continued pain. IMPRESSION: 1. Mild diffuse soft tissue swelling at the ankle [facility], , 06/07/2024 8:47 PM
[2024-06-07 20:53] LABS: Appearance,Urine Clear (Clear); Bilirubin,Urine Negative (Negative); Blood,Urine Negative (Negative); Color,Urine Colorless; Glucose,Urine (UA) Negative (Negative); Ketones,Urine Negative (Negative); Leukocyte Esterase,Urine Negative (Negative); Nitrite,Urine Negative (Negative); Protein,Urine Trace (Negative); Specific Gravity,Urine 1.017 (1.001-1.035); Urobilinogen,Urine <2.0 mg/dL (<2.0)
[2024-06-07] MEDS: KETOROLAC 15 MG/ML 1 ML VIAL IVP STA (21:23)
[2024-06-07] MEDS ORDERED: ACETAMINOPHEN TAB 325 MG TAB PO PRN (22:18)
[2024-06-07] MEDS ORDERED: IBUPROFEN 400 MG TAB PO PRN (22:18)
[2024-06-07] MEDS ORDERED: NALOXONE 0.4 MG/ML 1 ML VIAL IV PRN (22:18)
[2024-06-08 10:06] LABS: Glucose,Whole Blood 205 mg/dL (70-110)
[2024-06-08] MEDS: carvediloL 12.5 MG TAB PO SCH (10:51)
[2024-06-08] MEDS: FERROUS SULFATE 325 MG TAB PO SCH (10:52)
[2024-06-08] MEDS: APIXABAN 5 MG TAB PO SCH (10:52)
[2024-06-08] MEDS: CHOLECALCIFEROL 25 MCG (1000 IU) TABLET PO SCH (10:52)
[2024-06-08 11:50] LABS: Glucose,Whole Blood 199 mg/dL (70-110)
[2024-06-08] MEDS: INSULIN ASPART (NovoLOG) 100 UNIT/ML VIAL SQ SCH (12:56)
--- NOTE | 2024-06-08 15:54 | P.HPIM ---
History of Present Illness H&P Date: 06/08/24 Chief Complaint: Left leg weakness Hospital course: 69-year-old male with a past medical history significant for diabetes mellitus hypertension hyperlipidemia sleep apnea atrial fibrillation with multiple admissions the past for leg cellulitis, Previous right great saphenous venous radiofrequency ablation ultrasound and post-laser great saphenous vein is occluded this was done by Dr. Olga Gamez from vascular. Patient has dressing on both lower extremity. With compression stocking. Patient does dressing changes at home. He last saw Dr. Gamez about 2 months ago. He thinks his left leg swelling is fairly coming along fine. Patient now presents with some increased pain in the left foot. Also finds unable to stand on it for long. Giving way. Denies any obvious fever and chills. But pain is present. Appetite is fair. No change in bowel or urine pattern. He feels the weakness is only from below the knee. Review of systems: GEN.: [A bit tired EYES: None HEENT: None NECK: None RESPIRATORY: None CARDIOVASCULAR: None GASTROINTESTINAL: None GENITOURINARY: None MUSCULOSKELETAL: As above LYMPHATICS: None HEMATOLOGICAL: None PSYCHIATRY: None NEUROLOGICAL: [No focal symptoms Past medical history to include: Atrial fibrillation, diabetes, hypertension, hyperlipidemia, obstructive sleep apnea, basal cell carcinoma, depression, recurrent right leg cellulitis Social history: Lives alone. Does get home nurse and physical therapy. Denies smoking, alcoh ol. Physical examination: VITAL SIGNS: 97.4, 67, 17, 136-72, 96% room GENERAL: Laying in bed, comfortable. BMI 36.9 EYES: Pupils equal. Conjunctiva normal. HEENT: External appearance of nose and ears normal, oral cavity grossly normal. NECK: JVD not raised; masses not palpable. HEART: First and second heart sounds are normal; edema present LUNGS: Respiratory rate normal; clear to auscultation. ABDOMEN: Soft, distended, nontender, liver spleen not palpable, no masses palpable. PSYCH: Alert and oriented x3; mood and affect normal. MUSCULOSKELETAL:No Clubbing/cyanosis;muscles-grossly intact EXTREMITIES: Bilateral lower extremity dressing with compression stocking INVESTIGATIONS, reviewed in the clinical context: June 07: White count 9.7 hemoglobin 7.4 platelets 180 sodium 141 potassium 4.2 creatinine 1.25 EKG tracing personally reviewed by me-normal sinus rhythm. Some LVH Left leg Doppler: Negative for DVT Assessment and plan: -New onset of left leg weakness. Complains of the same below the left knee. But happens after standing. Also complaining of increased pain in the left foot. No fever no chills. Has cellulitis and possible wound. Great follows Dr. Gamez. Lab Tritocin evaluate the same. Patient has no other focal neurological findings. - chronic recurrent right lower extremity cellulitis, with venous ulcer . Prior history of radiofrequency ablation of the vein by Dr. Olga Gamez Consult Dr. Gamez for local wound care and compression wraps -Chronic gait dysfunction. Multiple medical problems. Uses walker at baseline -Paroxysmal atrial fibrillation currently normal sinus rhythm Coreg. Eliquis -Diabetes mellitus type 2 , chronically on insulin Follow Accu-Cheks -Secondary moderate pulmonary hypertension -Severe aortic stenosis: Does follow with cardiology -Essential Hypertension Coreg to 12.5 by mouth twice a day. -Hyperlipidemia Lipitor 10 mg daily - obesity with BMI of 36.9 Weight loss measures -Obstructive sleep apnea and does not use CPAP as he cannot tolerate the mask Consult Dr. Gamez. Discussed with patient. PT OT. Past Medical History Past Medical History: Atrial Fibrillation, Cancer, Diabetes Mellitus, Hyperlipidemia, Hypertension, Sleep Apnea/CPAP/BIPAP Additional Past Medical History / Comment(s): Basal cell carcinoma, Heart murmur History of Any Multi-Drug Resistant Organisms: MRSA Date of last positivie culture/infection: 02/24/23 MDRO Source:: Right Leg Past Surgical History: No Surgical Hx Reported Additional Past Surgical History / Comment(s): Cataract surgery right eye, RLE vein stripping Past Anesthesia/Blood Transfusion Reactions: No Reported Reaction Past Psychological History: Depression Smoking Status: Never smoker Past Alcohol Use History: None Reported Past Drug Use History: None Reported - Past Family History Mother Family Medical History: Diabetes Mellitus Medications and Allergies Home Medications Medication Instructions Recorded Confirmed Type Apixaban [Eliquis] 5 mg PO BID 04/11/17 06/08/24 History Insulin Glargine,Hum.rec.anlog 20 units SQ HS 12/12/22 06/08/24 History [Lantus Solostar Pen] Insulin Lispro [humaLOG Kwikpen] See Protocol SQ AC-TID 12/12/22 06/08/24 History Testosterone [Androgel 1.62% Gel 1 packet TOPICAL DAILY 12/12/22 06/08/24 History Packet] Furosemide [Lasix] 40 mg PO HS 04/18/23 06/08/24 History Potassium Chloride ER [K-Dur 20] 20 meq PO HS 04/18/23 06/08/24 History Atorvastatin [Lipitor] 10 mg PO HS 05/04/23 06/08/24 History carvediloL [Coreg] 12.5 mg PO BID 07/24/23 06/08/24 History Cholecalciferol [Vitamin D3 (25 25 mcg PO DAILY 06/08/24 06/08/24 History Mcg = 1000 Iu)] Ferrous Sulfate [Feosol] 325 mg PO DAILY 06/08/24 06/08/24 History Losartan [Cozaar] 50 mg PO HS 06/08/24 06/08/24 History Semaglutide [Ozempic] 2 mg SQ NEVAREZ 06/08/24 06/08/24 History Allergies Allergy/AdvReac Type Severity Reaction Status Date / Time famotidine [From Pepcid] Allergy Unknown Verified 06/08/24 07:17 Penicillins Allergy Rash/Hives Verified 06/08/24 07:17 hydrocodone AdvReac Hallucinati Verified 06/08/24 07:17 ons lisinopril [From Prinivil] AdvReac Cough Verified 06/08/24 07:17 Physical Exam Vitals: Vital Signs Temp Pulse Pulse Resp BP BP Pulse Ox 06/08/24 08:23 97.8 F 65 16 162/66 95 06/08/24 07:00 76 16 139/71 96 06/07/24 19:20 69 18 131/83 97 06/07/24 16:53 98.2 F 68 16 151/88 95 Intake and Output 06/07/24 06/08/24 06/08/24 22:59 06:59 14:59 Other: Weight 127.006 kg Results CBC & Chem 7: 06/07/24 19:10 06/07/24 19:10 Labs: Abnormal Lab Results - Last 24 Hours (Table) 06/07/24 06/07/24 06/07/24 Range/Units 19:10 19:10 20:49 RBC 6.01 H (4.30-5.90) m/uL Hct 53.4 H (39.0-53.0) % RDW 15.7 H (11.5-15.5) % Carbon Dioxide 32 H (22-30) mmol/L BUN 56 H (9-20) mg/dL Glucose 123 H (74-99) mg/dL Total Bilirubin 1.4 H (0.2-1.3) mg/dL Urine Protein Trace H (Negative)
--- NOTE | 2024-06-08 16:10 | P.GSCN ---
History of Present Illness History of present illness: 69-year-old gentleman known to me from the past patient had a great saphenous vein reflux was treated with radiofrequency in the past. She had a history of cellulitis in the past. It came to the emergency room with history of pain and discomfort left foot he could not stand on his left foot she has been admitted ultrasound of the leg shows no evidence for deep vein thrombosis. Medical history history of atrial fibrillation, diabetes mellitus hypertension sleep apnea On examination patient was seen in his room his vital signs are stable Patient was seen in his room signs stable afebrile Neck is supple no bruit appreciated Chest is clear. Second sound present Abdomen soft nontender Vascular femorals are 2+ bilateral left leg swelling noted with the patient his pain is much better now ultrasound shows there is no evidence of deep vein thrombosis at this point patient is stable we will follow with you Past Medical History Past Medical History: Atrial Fibrillation, Cancer, Diabetes Mellitus, Hyperlipidemia, Hypertension, Sleep Apnea/CPAP/BIPAP Additional Past Medical History / Comment(s): Basal cell carcinoma, Heart murmur History of Any Multi-Drug Resistant Organisms: MRSA Year Discovered:: 02/24/23 MDRO Source:: Right Leg Past Surgical History: No Surgical Hx Reported Additional Past Surgical History / Comment(s): Cataract surgery right eye, RLE vein stripping Past Anesthesia/Blood Transfusion Reactions: No Reported Reaction Past Psychological History: Depression Smoking Status: Never smoker Past Alcohol Use History: None Reported Past Drug Use History: None Reported - Past Family History Mother Family Medical History: Diabetes Mellitus Medications and Allergies Home Medications Medication Instructions Recorded Confirmed Type Apixaban [Eliquis] 5 mg PO BID 04/11/17 06/08/24 History Insulin Glargine,Hum.rec.anlog 20 units SQ HS 12/12/22 06/08/24 History [Lantus Solostar Pen] Insulin Lispro [humaLOG Kwikpen] See Protocol SQ AC-TID 12/12/22 06/08/24 History Testosterone [Androgel 1.62% Gel 1 packet TOPICAL DAILY 12/12/22 06/08/24 History Packet] Furosemide [Lasix] 40 mg PO HS 04/18/23 06/08/24 History Potassium Chloride ER [K-Dur 20] 20 meq PO HS 04/18/23 06/08/24 History Atorvastatin [Lipitor] 10 mg PO HS 05/04/23 06/08/24 History carvediloL [Coreg] 12.5 mg PO BID 07/24/23 06/08/24 History Cholecalciferol [Vitamin D3 (25 25 mcg PO DAILY 06/08/24 06/08/24 History Mcg = 1000 Iu)] Ferrous Sulfate [Feosol] 325 mg PO DAILY 06/08/24 06/08/24 History Losartan [Cozaar] 50 mg PO HS 06/08/24 06/08/24 History Semaglutide [Ozempic] 2 mg SQ NEVAREZ 06/08/24 06/08/24 History Allergies Allergy/AdvReac Type Severity Reaction Status Date / Time famotidine [From Pepcid] Allergy Unknown Verified 06/08/24 07:17 Penicillins Allergy Rash/Hives Verified 06/08/24 07:17 hydrocodone AdvReac Hallucinati Verified 06/08/24 07:17 ons lisinopril [From Prinivil] AdvReac Cough Verified 06/08/24 07:17 Surgical - Exam Vital Signs Temp Pulse Resp BP Pulse Ox 98.2 F 68 16 151/88 95 06/07/24 16:53 06/07/24 16:53 06/07/24 16:53 06/07/24 16:53 06/07/24 16:53 Results - Labs 06/07/24 19:10 06/07/24 19:10 Abnormal Lab Results - Last 24 Hours (Table) 06/07/24 06/07/24 06/07/24 Range/Units 19:10 19:10 20:49 RBC 6.01 H (4.30-5.90) m/uL Hct 53.4 H (39.0-53.0) % RDW 15.7 H (11.5-15.5) % Carbon Dioxide 32 H (22-30) mmol/L BUN 56 H (9-20) mg/dL Glucose 123 H (74-99) mg/dL POC Glucose (mg/dL) (70-110) mg/dL Total Bilirubin 1.4 H (0.2-1.3) mg/dL Urine Protein Trace H (Negative) 06/08/24 06/08/24 Range/Units 10:05 11:49 RBC (4.30-5.90) m/uL Hct (39.0-53.0) % RDW (11.5-15.5) % Carbon Dioxide (22-30) mmol/L BUN (9-20) mg/dL Glucose (74-99) mg/dL POC Glucose (mg/dL) 205 H 199 H (70-110) mg/dL Total Bilirubin (0.2-1.3) mg/dL Urine Protein (Negative) Diabetes panel 06/07/24 Range/Units 19:10 Sodium 141 (137-145) mmol/L Potassium 4.2 (3.5-5.1) mmol/L Chloride 101 (98-107) mmol/L Carbon Dioxide 32 H (22-30) mmol/L BUN 56 H (9-20) mg/dL Creatinine 1.25 (0.66-1.25) mg/dL Glucose 123 H (74-99) mg/dL Calcium 9.4 (8.4-10.2) mg/dL AST 25 (17-59) U/L ALT 20 (4-49) U/L Alkaline Phosphatase 84 (38-126) U/L Total Protein 7.2 (6.3-8.2) g/dL Albumin 4.3 (3.5-5.0) g/dL Calcium panel 06/07/24 Range/Units 19:10 Calcium 9.4 (8.4-10.2) mg/dL Albumin 4.3 (3.5-5.0) g/dL Pituitary panel 06/07/24 Range/Units 19:10 Sodium 141 (137-145) mmol/L Potassium 4.2 (3.5-5.1) mmol/L Chloride 101 (98-107) mmol/L Carbon Dioxide 32 H (22-30) mmol/L BUN 56 H (9-20) mg/dL Creatinine 1.25 (0.66-1.25) mg/dL Glucose 123 H (74-99) mg/dL Calcium 9.4 (8.4-10.2) mg/dL Adrenal panel 06/07/24 Range/Units 19:10 Sodium 141 (137-145) mmol/L Potassium 4.2 (3.5-5.1) mmol/L Chloride 101 (98-107) mmol/L Carbon Dioxide 32 H (22-30) mmol/L BUN 56 H (9-20) mg/dL Creatinine 1.25 (0.66-1.25) mg/dL Glucose 123 H (74-99) mg/dL Calcium 9.4 (8.4-10.2) mg/dL Total Bilirubin 1.4 H (0.2-1.3) mg/dL AST 25 (17-59) U/L ALT 20 (4-49) U/L Alkaline Phosphatase 84 (38-126) U/L Total Protein 7.2 (6.3-8.2) g/dL Albumin 4.3 (3.5-5.0) g/dL
[2024-06-08 17:05] LABS: Glucose,Whole Blood 402 mg/dL (70-110)
[2024-06-08 20:09] LABS: Glucose,Whole Blood 121 mg/dL (70-110)
[2024-06-08] MEDS: POTASSIUM CHLORIDE ER 20 MEQ TAB.ER PO SCH (21:24)
[2024-06-08] MEDS: FUROSEMIDE 40 MG TAB PO SCH (21:24)
[2024-06-08] MEDS: LOSARTAN 50 MG TAB PO SCH (21:24)
[2024-06-08] MEDS: ATORVASTATIN 10 MG TAB PO SCH (21:24)
[2024-06-08] MEDS: INSULIN DETEMIR (LEVEMIR) 100 UNIT/ML SYR SQ SCH (21:24)
[2024-06-09 05:58] LABS: Glucose,Whole Blood 171 mg/dL (70-110)
[2024-06-09 08:01] VITALS: BP 146/69; PULSE 52; RESP 18; TEMP 97.7
[2024-06-09 12:32] LABS: Glucose,Whole Blood 157 mg/dL (70-110)
--- NOTE | 2024-06-09 17:24 | P.DS ---
Providers Date of admission: 06/07/24 22:18 Expected date of discharge: 06/09/24 Attending physician: Catalino Banks Consults: 06/08/24 10:41 Consult Physician Routine Consulting Provider: Hakan Gamez Consult Reason/Comments: pt known to service, wound care left leg Do you want consulting provider notified?: Yes Primary care physician: Emmie Posadas Hospital Course: Chief Complaint: Left leg weakness Hospital course: 69-year-old male with a past medical history significant for diabetes mellitus hypertension hyperlipidemia sleep apnea atrial fibrillation with multiple admissions the past for leg cellulitis, Previous right great saphenous venous radiofrequency ablation ultrasound and post-laser great saphenous vein is occluded this was done by Dr. lOga Gamez from vascular. Patient has dressing on both lower extremity. With compression stocking. Patient does dressing changes at home. He last saw Dr. Gamez about 2 months ago. He thinks his left leg swelling is fairly coming along fine. Patient now presents with some increased pain in the left foot. Also finds unable to stand on it for long. Giving way. Denies any obvious fever and chills. But pain is present. Appetite is fair. No change in bowel or urine pattern. He feels the weakness is only from below the knee. June 09: Discussed with Dr. Gamez from vascular. With whom patient is known. Left foot inflammation healing well. Discussed with patient. Patient to use heating pad for pain or Tylenol. Otherwise is doing well with a walker. Questions answered Past medical history to include: Atrial fibrillation, diabetes, hypertension, hyperlipidemia, obstructive sleep apnea, basal cell carcinoma, depression, recurrent right leg cellulitis Social history: Lives alone. Does get home nurse and physical therapy. Denies smoking, alcohol. Physical examination: VITAL SIGNS: 97.7, 52, 18, 146 x 69, 96% room air GENERAL: Laying in bed, comfortable. BMI 36.9 EYES: Pupils equal. Conjunctiva normal. HEENT: External appearance of nose and ears normal, oral cavity grossly normal. NECK: JVD not raised; masses not palpable. HEART: First and second heart sounds are normal; edema present LUNGS: Respiratory rate normal; clear to auscultation. ABDOMEN: Soft, distended, nontender, liver spleen not palpable, no masses palpable. PSYCH: Alert and oriented x3; mood and affect normal. MUSCULOSKELETAL:No Clubbing/cyanosis;muscles-grossly intact EXTREMITIES: Bilateral lower extremity dressing with compression stocking INVESTIGATIONS, reviewed in the clinical context: June 07: White count 9.7 hemoglobin 7.4 platelets 180 sodium 141 potassium 4.2 creatinine 1.25 EKG tracing personally reviewed by me-normal sinus rhythm. Some LVH Left leg Doppler: Negative for DVT Assessment and plan: -Gait dysfunction., Secondary to left foot arthritis, inflammation, Seen by Dr. Gamez from vascular. - chronic recurrent right lower extremity cellulitis, with venous ulcer . Prior history of radiofrequency ablation of the vein by Dr. Olga Gamez Consult Dr. Gamez for local wound care and compression wraps -Chronic gait dysfunction. Multiple medical problems. Uses walker at baseline -Paroxysmal atrial fibrillation currently normal sinus rhythm Coreg. Eliquis -Diabetes mellitus type 2 , chronically on insulin Follow Accu-Cheks -Secondary moderate pulmonary hypertension -Severe aortic stenosis: Does follow with cardiology -Essential Hypertension Coreg to 12.5 by mouth twice a day. -Hyperlipidemia Lipitor 10 mg daily - obesity with BMI of 36.9 Weight loss measures -Obstructive sleep apnea and does not use CPAP as he cannot tolerate the mask -Full code Disposition: Home Past Medical History Past Medical History: Atrial Fibrillation, Cancer, Diabetes Mellitus, Hyperlipidemia, Hypertension, Sleep Apnea/CPAP/BIPAP Additional Past Medical History / Comment(s): Basal cell carcinoma, Heart murmur History of Any Multi-Drug Resistant Organisms: MRSA Date of last positivie culture/infection: 02/24/23 MDRO Source:: Right Leg Past Surgical History: No Surgical Hx Reported Additional Past Surgical History / Comment(s): Cataract surgery right eye, RLE vein stripping Past Anesthesia/Blood Transfusion Reactions: No Reported Reaction Past Psychological History: Depression Smoking Status: Never smoker Past Alcohol Use History: None Reported Past Drug Use History: None Reported Plan - Discharge Summary Discharge Rx Participant: No New Discharge Prescriptions: New Acetaminophen Tab [Tylenol] 650 mg PO Q6HR PRN tab PRN Reason: Mild Pain Or Fever > 100.5 Continue Apixaban [Eliquis] 5 mg PO BID Losartan [Cozaar] 50 mg PO HS Semaglutide [Ozempic] 2 mg SQ NEVAREZ Insulin Lispro [humaLOG Kwikpen] See Protocol SQ AC-TID Insulin Glargine,Hum.rec.anlog [Lantus Solostar Pen] 20 units SQ HS Testosterone [Androgel 1.62% Gel Packet] 1 packet TOPICAL DAILY Potassium Chloride ER [K-Dur 20] 20 meq PO HS Furosemide [Lasix] 40 mg PO HS Atorvastatin [Lipitor] 10 mg PO HS carvediloL [Coreg] 12.5 mg PO BID Ferrous Sulfate [Iron (65 MG Elemental)] 325 mg PO DAILY Cholecalciferol [Vitamin D3 (25 Mcg = 1000 Iu)] 25 mcg PO DAILY Discharge Medication List Apixaban [Eliquis] 5 mg PO BID 04/11/17 [History] Insulin Glargine,Hum.rec.anlog [Lantus Solostar Pen] 20 units SQ HS 12/12/22 [History] Insulin Lispro [humaLOG Kwikpen] See Protocol SQ AC-TID 12/12/22 [History] Testosterone [Androgel 1.62% Gel Packet] 1 packet TOPICAL DAILY 12/12/22 [History] Furosemide [Lasix] 40 mg PO HS 04/18/23 [History] Potassium Chloride ER [K-Dur 20] 20 meq PO HS 04/18/23 [History] Atorvastatin [Lipitor] 10 mg PO HS 05/04/23 [History] carvediloL [Coreg] 12.5 mg PO BID 07/24/23 [History] Cholecalciferol [Vitamin D3 (25 Mcg = 1000 Iu)] 25 mcg PO DAILY 06/08/24 [History] Ferrous Sulfate [Iron (65 MG Elemental)] 325 mg PO DAILY 06/08/24 [History] Losartan [Cozaar] 50 mg PO HS 06/08/24 [History] Semaglutide [Ozempic] 2 mg SQ NEVAREZ 06/08/24 [History] Acetaminophen Tab [Tylenol] 650 mg PO Q6HR PRN tab 06/09/24 [Rx] Follow up Appointment(s)/Referral(s): Emmie Posadas DO [Primary Care Provider] - 1-2 days [facility]idential [facility] [NON-STAFF] - As Needed Hakan Gamez MD [STAFF PHYSICIAN] - 2 Weeks Patient Instructions/Handouts: Leg Edema (ED) Activity/Diet/Wound Care/Special Instructions: OP - PT local leg care per dr gamez Discharge Disposition: HOME SELF-CARE
== END 2024-06-09 15:55 | disposition home or self-care (01) ==
LOC: EC 16:44 → 6NMEDSUR 22:18
PROVIDERS: ADMIT Hospitalist; ATTEND Hospitalist
DX: M19.072 Primary osteoarthritis, left ankle and foot (principal); R26.89 Other abnormalities of gait and mobility; L03.115 Cellulitis of right lower limb; I48.0 Paroxysmal atrial fibrillation; E11.9 Type 2 diabetes mellitus without complications; I27.20 Pulmonary hypertension, unspecified; I35.0 Nonrheumatic aortic (valve) stenosis; M79.605 Pain in left leg; M79.89 Other specified soft tissue disorders; I86.8 Varicose veins of other specified sites; E78.5 Hyperlipidemia, unspecified; G47.33 Obstructive sleep apnea (adult) (pediatric); I10 Essential (primary) hypertension; F32.A Depression, unspecified; E66.9 Obesity, unspecified; Z68.36 Body mass index [BMI] 36.0-36.9, adult; Z79.4 Long term (current) use of insulin; Z79.01 Long term (current) use of anticoagulants; Z79.85 Long-term (current) use of injectable non-insulin antidiabetic drugs; Z79.899 Other long term (current) drug therapy; Z88.0 Allergy status to penicillin; Z88.5 Allergy status to narcotic agent; Z88.8 Allergy status to other drugs, medicaments and biological substances
CPT/HCPCS: 96374; 99284; 36415; 93005; 97161; 80053; 83605; 83735; 85025; 85610; 85730; 81003; 73590; 93971; G0378 ×3; J1885

== ENCOUNTER 2025-02-08 09:16 | Day surgery (SDC) | payer MEDICARE ==
[2025-02-07 13:22] VITALS: BMI 38.2
[2025-02-08] MEDS: LACTATED RINGERS 1,000 ML IV SCH (10:44)
[2025-02-08 10:47] VITALS: TEMP 97.2
[2025-02-08 10:56] LABS: Glucose,Whole Blood 131 mg/dL (70-110)
[2025-02-08] MEDS: IV FLUID CONTINUATION 1,000 ML IV ONE (10:56)
[2025-02-08] MEDS ORDERED: LIDOCAINE 2% (PF) 20 MG/ML 5 ML VIAL ONE (11:26)
[2025-02-08] MEDS ORDERED: PROPOFOL 10 MG/ML 20 ML VIAL IV ONE (11:26)
--- NOTE | 2025-02-08 11:42 | P.PCN ---
Date of Procedure: 02/08/25 Procedure(s) Performed: BRIEF HISTORY: Patient is a 70-year-old pleasant white male scheduled for an elective colonoscopy as a part of screening for prior history of colon polyps. Last colonoscopy was 5 years ago. He was noted to have a tubular adenoma. He also has family history of colon cancer diagnosed in his father at age 65. PROCEDURE PERFORMED: Colonoscopy. PREOPERATIVE DIAGNOSIS: Screening for history of colon polyps and family history of colon cancer. IV sedation per Anesthesia. PROCEDURE: After informed consent was obtained, the patient, was brought into the endoscopy unit. IV sedation was administered by Anesthesia under continuous monitoring. Digital rectal examination was normal. Initially the Olympus CF-160 flexible video colonoscope was then inserted in the rectum, gradually advanced into the cecum without any difficulty. Careful examination was performed as the scope was gradually being withdrawn. Ileocecal valve and the appendiceal orifice were visualized and appeared normal. Prep was excellent. Mucosa of the cecum, ascending colon, transverse colon, descending colon, sigmoid colon, and rectum appeared normal. Scattered sigmoid diverticulosis. Retroflexion was performed in the rectum and no lesions were seen. The patient tolerated the procedure well. IMPRESSION: Normal-appearing colon from rectum to cecum with no evidence of colorectal neoplasia Scattered sigmoid diverticulosis. RECOMMENDATIONS: Findings of this examination were discussed with the patient as well as his family... He was advised to have repeat screening colonoscopy in 5 years because of the family history of colon cancer.
[2025-02-08 12:08] VITALS: BP 141/74; PULSE 67; RESP 18
== END 2025-02-08 12:29 | disposition home or self-care (01) ==
LOC: ORWHC2ENDO 09:16
PROVIDERS: ATTEND Internal Medicine Gastroenterology
DX: Z12.11 Encounter for screening for malignant neoplasm of colon (principal); Z80.0 Family history of malignant neoplasm of digestive organs; Z86.0100 Personal history of colon polyps, unspecified; K57.30 Diverticulosis of large intestine without perforation or abscess without bleeding
CPT/HCPCS: J2704; J2003; G0105